=== PATIENT | female | born 1995 | race Caucasian/White ===

== ENCOUNTER → 2020-03-27 16:54 | Outpatient (CLI) | payer BC, SELFPAY ==
[2019-10-07 10:28] VITALS: BMI 19.2
[2020-03-31 12:08] LABS: Bahia Grass <0.10 kU/L (Class 0); Bermuda Grass <0.10 kU/L (Class 0); Bluegrass, Kentucky <0.10 kU/L (Class 0); Gluten <0.10 kU/L (Class 0); Johnson Grass <0.10 kU/L (Class 0); Oat <0.10 kU/L (Class 0); Timothy Grass <0.10 kU/L (Class 0); Wheat <0.10 kU/L (Class 0)
[2020-03-31 13:18] LABS: Milk (Cow) <0.10 kU/L (Class 0); Pine, White <0.10 kU/L (Class 0)
[2020-03-31 20:08] LABS: Alternaria tenuis 3.29 kU/L (Class III); Ash, White <0.10 kU/L (Class 0); Aspergillus fumigatus <0.10 kU/L (Class 0); Bermuda Grass <0.10 kU/L (Class 0); Birch <0.10 kU/L (Class 0); Black Walnut <0.10 kU/L (Class 0); Cat Hair / Dander,Stand 4.92 kU/L (Class IV); Cedar, Mountain 1.28 kU/L (Class II); Cladosporium herbarum <0.10 kU/L (Class 0); Cockroach, American 0.16 kU/L (Class 0/I); Cottonwood <0.10 kU/L (Class 0); D farinae Mite 0.24 kU/L (Class 0/I); D pteronyssinus 0.27 kU/L (Class 0/I); Dog Epithelia 3.25 kU/L (Class III); Elm, American White <0.10 kU/L (Class 0); Immunoglobulin E 118 IU/mL (6-495); Maple/Box Elder <0.10 kU/L (Class 0); Mulberry, White <0.10 kU/L (Class 0); Oak, White <0.10 kU/L (Class 0); Pecan <0.10 kU/L (Class 0); Penicillium Notatum <0.10 kU/L (Class 0); Pigweed, Rough <0.10 kU/L (Class 0); Russian Thistle <0.10 kU/L (Class 0); Sheep Sorrel <0.10 kU/L (Class 0); Sycamore, American <0.10 kU/L (Class 0); Timothy Grass <0.10 kU/L (Class 0)
[2020-03-31 20:56] LABS: Mouse Urine <0.10 kU/L (Class 0)
== END ==
PROVIDERS: PCP Student in an Organized Health Care Education/Training Program; Visit Provider Otolaryngology
DX: T78.40XA Allergy, unspecified, initial encounter (principal)
CPT/HCPCS: 36415; 82785; 86003

== ENCOUNTER 2020-12-23 14:27 | Emergency (ER) | payer OTHER, BC, SELFPAY ==
[2020-12-23 14:28] VITALS: BP 149/102; PULSE 90; RESP 16; TEMP 37.1; O2SAT 100; BMI 21.9
--- NOTE | 2020-12-23 14:41 | EDS_ITS ---
HPI History of Present Illness Chief Complaint: Lower Extremity Injury Informant: patient Occured/Mechanism Mechanism/Context: Yes work related Onset/Context/Timing Onset: Today Current Severity: Mild Maximum Severity: Mild Narrative Narrative: Patient present secondary to right foot injury. 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 She was entering a patient's home today when the screen door closed on her right foot. She has pain across the top of her foot. She has been able to ambulate, but states she is increased pain when she flexes or extends her toes, walks, or drives. [facility] Medical History Asthma Irritable bowel syndrome (IBS) Home Medications cetirizine 10 mg capsule 10 mg PO DAILY 10/07/19 [History Last Taken Unknown] norethindrone 1 mg-ethinyl estradiol 20 mcg (21)-iron 75 mg (7) tablet 1 tab PO DAILY 10/07/19 [History Last Taken Unknown] omeprazole 10 mg capsule,delayed release 10 mg PO DAILY 10/07/19 [History Last Taken Unknown] sennosides 8.6 mg capsule 8.6 mg PO BID PRN 10/07/19 [History Last Taken Unknown] methylprednisolone 4 mg tablets in a dose pack See Rx Instructions PO PER PKG DIR #21 tab 10/16/19 [Rx Last Taken Unknown] Allergy/AdvReac Type Severity Reaction Status Date / Time TEA TREE OIL Allergy HIVES Uncoded 12/23/20 14:30 Surgical History History of carpal tunnel release [place] teeth extracted Social History Smoking Status: Never smoker alcohol intake: never ROS ROS ED Constitutional Constitutional ED: Denies chills or fever(s) Eyes Eyes: Denies change in vision Cardiovascular Cardiovascular: Denies chest pain Respiratory/Chest Respiratory/Chest: Denies cough or dyspnea Gastrointestinal Gastrointestinal: Denies abdominal pain, diarrhea, nausea or vomiting Genitourinary Genitourinary ED: Denies dysuria Musculoskeletal Musculoskeletal: Reports arthralgias; Denies back pain Integumentary Denies rash Neurologic Neurologic: Reports paresthesias RLE (Chronic and unchanged); Denies headache(s) or weakness Psychiatric Psychiatric: Denies anxiety or depression Allergic/Immunologic Allergic/Immunologic ED: Denies urticaria EXAM Physical Exam Const Vital Signs: 12/23/20 14:28 12/23/20 16:03 Temperature 98.8 F Temperature Source Temporal Pulse Rate 90 79 Respiratory Rate 16 16 Blood Pressure 149/102 H 116/84 H Blood Pressure Mean 117 Pulse Ox 100 Oxygen Delivery Method Room Air Positive well nourished and well developed General Appearance ED: well developed HEENT Reports normocephalic and head/scalp atraumatic Eyes PERRL and EOMs intact bilaterally Neck supple Chest Wall inspection of chest normal Resp normal respiratory effort Cardio regular rate and regular rhythm GI normal to inspection, nondistended, normoactive bowel sounds Extremity Extremity Narrative: Abrasion to the top of the right foot. Mild tenderness along the third, fourth, and fifth metatarsals. Good cap refill and sensation distally. No tenderness of the ankle or knee. Neuro oriented x3 and no sensory deficits noted Sensorium / Orientation: alert Motor Exam: strength 5/5 throughout Psych mental status grossly normal Skin no rashes or lesions noted Trauma: abrasion MDM MDM MDM Narrative Medical decision making narrative: Right foot x-rays obtained. Radiography Diagnostic Testing: Radiology Impression Foot X-Ray 12/23/20 14:44 IMPRESSION: Normal x-ray examination of the foot. Electronically Signed: Sree Lewis MD at 15:03 EDT Tel , Service support , Treatment and Re-Evaluation Comments:: Right foot x-ray per my interpretation reveals no acute fracture. Radiology rotation is reviewed. Js wrap will be applied. Patient will follow up with Worker's Comp. Discharge Plan Triage Chief Complaint: Lower Extremity Injury ED Provider: Elke Abarca Dx/Rx/DC Orders Clinical Impression: Contusion of foot, right Instructions: ED Foot Contusion Prescriptions: No Action Zyrtec 10 mg capsule 10 mg PO DAILY RF: 0 senna 8.6 mg capsule 8.6 mg PO BID PRNRF: 0 omeprazole 10 mg capsule,delayed release(DR/EC) 10 mg PO DAILY RF: 0 norethindrone-e.estradiol-iron [Junel FE 1/20 (28)] 1 mg-20 mcg (21)/75 mg (7) tablet 1 tab PO DAILY RF: 0 methylprednisolone 4 mg tablets,dose pack See Rx Instructions PO PER PKG DIR Qty: 21 RF: 0 Stand Alone Forms: Work Status Form Primary Care Provider: Shemar Sanchez Referrals: [facility] [GROUP OF PHYSICIANS] - 5-7 Days Shemar Sanchez DO [Primary Care Provider] - Disposition Disposition: Home, Self Care Discharge Date/Time: 12/23/20 16:12
--- NOTE | 2020-12-23 14:44 | RAD_ITS ---
STUDY: X-RAY - RIGHT FOOT CLINICAL: Female, 25 years old. injury TECHNIQUE: 3 view(s) of the foot. COMPARISON: None. FINDINGS: Normal talus, calcaneus, and tarsal bones. Normal visualized subtalar, talonavicular, calcaneocuboid, tarsal and tarsometatarsal articulations. Normal metatarsi. Normal metatarsophalangeal joint of the great toe. Normal tibial and fibular sesamoid bones. Normal interphalangeal joint of the great toe. Normal phalanges of the great toe. Normal second through fifth metatarsophalangeal joints. Normal interphalangeal joints and phalanges of the lesser toes. The soft tissue structures are unremarkable. RAD/Foot min 3 Views IMPRESSION: Normal x-ray examination of the foot. Electronically Signed: Sree Lewis MD at 15:03 EDT Tel , Service support ,
[2020-12-23 16:03] VITALS: BP 116/84; PULSE 79; RESP 16
== END 2020-12-23 16:12 | disposition home or self-care (01) ==
PROVIDERS: Emergency Provider Emergency Medicine; PCP Student in an Organized Health Care Education/Training Program
DX: S90.31XA Contusion of right foot, initial encounter (principal); X58.XXXA Exposure to other specified factors, initial encounter
CPT/HCPCS: 73630; 99282

== ENCOUNTER 2021-05-13 05:45 | Day surgery (SDC) | payer BC, SELFPAY ==
[2021-05-13] VITALS (11 sets, daily range): BP systolic 101–120; BP diastolic 54–82; PULSE 64–98; RESP 16; TEMP 36.4–36.8; O2SAT 98–100; BMI 21.4
--- NOTE | 2021-05-13 | MISC_PTH ---
PATIENT: CARMEN KRAFT [place]: [facility] [place][id number] AGE/SX: 25/F ROOM: RE05/13/[address]: Dr. Rhiannon Cueva MD : 1995 BED: DIS: 05/13/2021 SPEC #: [id number] RECD: 05/13/21 12:43 STATUS: CELESTE RETrent #: [id number] JUAN: 05/13/21 00:[address]: Rhiannon Anderson DEPT: SURGICAL PATHOLOGY RECD BY: Faizan Worrell ENTERED: 05/13/21 12:47 SP TYPE: [facility] [place]: Dr. Shemar Sanchez, DO Tissues: A - Abdominal wall, NOS B - Peritoneum, NOS C - Peritoneum, NOS D - Peritoneum, NOS E - Peritoneum, NOS F - Peritoneum, NOS G - Peritoneum, NOS H - Peritoneum, NOS I - Peritoneum, NOS J - Peritoneum, NOS K - Peritoneum, NOS L - Peritoneum, NOS M - Peritoneum, NOS N - Peritoneum, NOS O - Peritoneum, NOS P - Peritoneum, NOS Q - Peritoneum, NOS R - Peritoneum, NOS Procedures: Surgery Specimen Level IV HEADER OPERATION: Laparoscopic resect endometriosis PRE-OP DIAGNOSIS: Chronic pelvic pain, endometriosis TISSUE SUBMITTED: A - Left abdominal side wall, B - Left adnexa peritoneum, C - Left mesosalpinx peritoneum, D - Left iliac peritoneum, E - Left uterosacral peritoneum, F - Rectovaginal endometriosis, G - Distal uterosacral peritoneum, H - Distal uterosacral peritoneum #2, I - Left medial uterosacral peritoneum, J - Right broad ligament peritoneum, K - Right ovarian fossa peritoneum, L - Right ovarian fossa peritoneum #2, M - Left round ligament peritoneum, N - Anterior cul-de-sac peritoneum, O - Right anterior cul-de-sac peritoneum, P - Anterior cul-de-sac peritoneum #2, Q - Anterior cul-de-sac peritoneum, R - Right pelvic side wall MICROSCOPIC DIAGNOSIS A. Left abdominal side wall, biopsy: Endometriosis. Mild chronic inflammation. B. Left adnexa peritoneum, biopsy: Focal endometriosis. C. Left mesosalpinx peritoneum, biopsy: Focal endometriosis. D. Left iliac peritoneum, biopsy: A fragment of fibroconnective and fibroadipose tissue, negative for endometriosis. E. Left uterosacral peritoneum, biopsy: Endometriosis. Chronic inflammation. F. Rectovaginal endometriosis: Endometriosis. Chronic inflammation. G. Distal uterosacral peritoneum, biopsy: Suspicious for endometriosis. Chronic inflammation. H. Distal uterosacral peritoneum #2, biopsy: Endometriosis. I. Left medial uterosacral peritoneum, biopsy: A fragment of fibroconnective and fibroadipose tissue, negative for endometriosis. Chronic inflammation. J. Right broad ligament peritoneum, biopsy: A fragment of fibroconnective and fibroadipose tissue, negative for endometriosis. Chronic inflammation. K. Right ovarian fossa peritoneum, biopsy: Focal endometriosis. L. Right ovarian fossa peritoneum #2, biopsy: A fragment of fibroconnective and fibroadipose tissue, negative for malignancy. M. Left round ligament peritoneum, biopsy: Suspicious for endometriosis. N. Anterior cul-de-sac peritoneum, biopsy: A fragment of fibroadipose and fibroconnective tissue, negative for endometriosis. O. Right anterior cul-de-sac peritoneum, biopsy: Fragments of fibroconnective and fibroadipose tissue, negative for endometriosis. P. Anterior cul-de-sac peritoneum #2, biopsy: Focal endometriosis. Q. Anterior cul-de-sac peritoneum, biopsy: A fragment of fibroconnective tissue, negative for endometriosis. R. Right pelvic side wall, biopsy: Endometriosis. SJ:karey 05/14/2021 MICROSCOPIC DESCRIPTION Slides are reviewed. GROSS DESCRIPTION A - Received in fixative is one container labeled with the patient's name and designated left abdominal side wall. The specimen consists of one irregular fragment of justin soft tissue that measures 1 x 0.5 x 0.2 cm. The specimen is totally submitted in one cassette. B - Received in fixative is one container labeled with the patient's name and designated left adnexa peritoneum. The specimen consists of two irregular fragments of justin soft tissue that in aggregate measure 0.5 x 0.5 x 0.2 cm. The specimen is totally submitted in one cassette. C - Received in fixative is one container labeled with the patient's name and designated left mesosalpinx peritoneum. The specimen consists of one irregular fragment of light justin soft tissue that measures 0.2 x 0.2 x 0.1 cm. The specimen is totally submitted in one cassette. D - Received in fixative is one container labeled with the patient's name and designated left iliac peritoneum. The specimen consists of a piece of justin-pink soft tissue measuring 0.7 x 0.7 x 0.3 cm. The specimen is totally submitted in one cassette. E - Received in fixative is one container labeled with the patient's name and designated left uterosacral peritoneum. The specimen consists of a piece of pink, congested soft tissue measuring 0.7 x 0.5 x 0.2 cm. The specimen is totally submitted in one cassette. F - Received in fixative is one container labeled with the patient's name and designated rectovaginal endometriosis. The specimen consists of a piece of pink, congested soft tissue measuring 1.2 x 0.4 x 0.3 cm. The specimen is totally submitted in one cassette. G - Received in fixative is one container labeled with the patient's name and designated distal uterosacral peritoneum. The specimen consists of a piece of pink, congested soft tissue measuring 0.9 x 0.5 x 0.3 cm. The specimen is totally submitted in one cassette. H - Received in fixative is one container labeled with the patient's name and designated Distal uterosacral peritoneum #2. The specimen consists of a piece of justin soft tissue measuring 0.3 x 0.2 x 0.1 cm. The specimen is totally submitted in one cassette. I - Received in fixative is one container labeled with the patient's name and designated left medial uterosacral peritoneum. The specimen consists of a fragment of justin soft tissue measuring 0.3 x 0.3 x 0.1 cm. The specimen is totally submitted in one cassette. J - Received in fixative is one container labeled with the patient's name and designated right broad ligament peritoneum. The specimen consists of a piece of pink, congested soft tissue measuring 1 x 0.5 x 0.3 cm. The specimen is totally submitted in one cassette. K - Received in fixative is one container labeled with the patient's name and designated right ovarian fossa peritoneum. The specimen consists of a piece of justin-pink soft tissue measuring 0.9 x 0.3 x 0.2 cm. The specimen is totally submitted in one cassette. L - Received in fixative is one container labeled with the patient's name and designated right ovarian fossa peritoneum #2. The specimen consists of a piece of pink, congested soft tissue measuring 0.7 x 0.5 x 0.3 cm. The specimen is totally submitted in one cassette. M - Received in fixative is one container labeled with the patient's name and designated left round ligament peritoneum. The specimen consists of a piece of justin-pink soft tissue measuring 0.3 x 0.2 x 0.1 cm. The specimen is totally submitted in one cassette. N - Received in fixative is one container labeled with the patient's name and designated anterior cul-de-sac peritoneum. The specimen consists of a piece of justin-pink soft tissue measuring 0.6 x 0.5 x 0.2 cm. The specimen is totally submitted in one cassette. O - Received in fixative is one container labeled with the patient's name and designated right anterior cul-de-sac peritoneum. The specimen consists of two irregular fragments of light justin soft tissue that in aggregate measure 0.6 x 0.5 x 0.3 cm. The specimen is totally submitted in one cassette. P - Received in fixative is one container labeled with the patient's name and designated anterior cul-de-sac peritoneum #2. The specimen consists of one irregular fragment of light justin soft tissue that measures 0.7 x 0.4 x 0.3 cm. The specimen is totally submitted in one cassette. Q - Received in fixative is one container labeled with the patient's name and designated anterior cul-de-sac peritoneum #3. The specimen consists of one irregular fragment of light justin soft tissue that measures 0.3 x 0.2 x 0.1 cm. The specimen is totally submitted in one cassette. R - Received in fixative is one container labeled with the patient's name and designated right pelvic side wall. The specimen consists of one irregular fragment of justin-pink soft tissue that measures 0.6 x 0.6 x 0.3 cm. The specimen is totally submitted in one cassette. / SJ:rg 05/13/2021 TC:5 CPT: 90429 x18
[2021-05-13 06:45] LABS: Internal QC Validated? YES +Cl - CLEAR BKGD; Pregnancy, Urine Negative Negative
[2021-05-13] MEDS: Lactated Ringers 1,000 ML 125 ML IV ×2 (07:03→09:31)
[2021-05-13 07:05] LABS: Hemoglobin 14.5 g/dL (12.0-15.0); Mean Corp Hgb Conc 33.7 g/dL (32-36); Mean Corpuscular Hgb 30.1 pg (27.0-32.0); Mean Corpuscular Volume 89.4 fL (81-99); Mean Platelet Vol. 10.9 fl (6.2-12.0); Platelet Count 184 K/mm3 (150-450); RBC Distribution Width SD 39.3 fl (35.1-43.9); Red Blood Count 4.81 M/mm3 (4.2-5.4); White Blood Count 6.2 K/mm3 (4.4-11.0)
--- NOTE | 2021-05-13 07:09 | HP.PCM_ITS ---
HPI - General HPI Narrative CARMEN RUTLEDGE, is a 25 F who presents for scheduled diagnostic laparoscopy with surgical treatment of endometriosis as indicated. She has a hx of chronic pelvic pain with IBS refractory to GI management and hormonal contraceptives. [facility] Medical History (Updated 05/13/21 @ 07:[address] Rhiannon Cueva MD) Anxiety Asthma Depression Heartburn Irritable bowel syndrome (IBS) Migraine headache Non-smoker Syncope Wears glasses Home Medications cetirizine 10 mg capsule 10 mg PO DAILY 10/07/19 [History Last Taken Unknown] albuterol 90 mcg INHALATION PRN PRN 05/06/21 [History Last Taken Unknown] cholecalciferol (vitamin D3) [Vitamin D3] 50 mcg PO DAILY 05/06/21 [History Last Taken Unknown] lubiprostone [Amitiza] 8 - 16 mcg PO DAILY 05/06/21 [History Last Taken Unknown] multivitamin 1 cap PO DAILY 05/06/21 [History Last Taken Unknown] Allergy/AdvReac Type Severity Reaction Status Date / Time TEA TREE OIL Allergy HIVES Uncoded 05/06/21 12:59 Surgical History History of carpal tunnel release Hx of colonoscopy with polypectomy [place] teeth extracted Social History Smoking Status: Never smoker alcohol intake: never Vital Signs Vital Signs Vital Signs: 05/13/21 06:57 Temperature 98.1 F Temperature Source Temporal Pulse Rate 64 Respiratory Rate 16 Respiratory Pattern Normal Blood Pressure 106/74 Blood Pressure Mean 84 Blood Pressure Source Monitor Blood Pressure Position Semi-Fowlers Blood Pressure Location Right Arm Pulse Ox 100 Oxygen Delivery Method Room Air Weight Weight: 55 kg Body Mass Index (BMI) 21.4 Physical Exam Const alert, oriented x3 and no apparent distress HEENT normocephalic Resp normal respiratory effort, normal air movement and clear to auscultation bilaterally Cardio regular rate and regular rhythm GI normal to inspection, nondistended, normoactive bowel sounds, soft to palpation, non-tender and non-distended Results Lab / Micro Data Result Diagrams: 05/13/21 06:30 Labs: Laboratory Results - last 24 hr 05/13/21 06:15: Urine Test Negative 05/13/21 06:30: WBC 6.2, RBC 4.81, Hgb 14.5, Hct 43.0, MCV 89.4, MCH 30.1, MCHC 33.7, RDW Std Deviation 39.3, RDW Coeff of Katya 12.0, Plt Count 184, MPV 10.9 Assessment & Plan Assessment/Plan (1) Chronic pelvic pain in female: PLAN: Proceed as planned with laparoscopy, treatment of endometriosis as indicated. Patient given opportunity to ask questions and questions answered to her satisfaction.
[2021-05-13] MEDS: Cefotetan 2 GM in 0.9% NS 100 ML IV (07:46)
[2021-05-13] MEDS: Bupivacaine Mpf 0.5% 30 ML VIAL (08:02)
--- NOTE | 2021-05-13 10:44 | OP.PCM_ITS ---
Problems Associated Problem List Diagnoses (1) Chronic pelvic pain in female: (2) Endometriosis determined by laparoscopy: Report of Operation Date of Procedure: 05/13/21 Pre-Operative Diagnosis: 1. Chronic pelvic pain Post-Operative Diagnosis: 1. Chronic pelvic pain 2. Endometriosis Surgery/Procedure Performed:: 1. Diagnostic laparoscopy 2. Excision of endometriosis 3. Lysis of adhesions 4. Ureterolysis 5. Interceed placement Description of Surgical Findings:: Diffuse pelvic endometriosis including anterior and posterior cul-de-sacs, bilateral uterosacral ligaments and the right ovarian fossa and left adnexal peritoneum. Normal-appearing appendix. Normal uterus tubes and ovaries bilaterally. Surgeon: Rhiannon Anderson hl7 interface developer: Jannette Coronel Type of Anesthesia: General and Local Anesthesiologist: Mandeep Alcantar Specimen's removed: 1. L. abrominal side wall peritoneum 2. Left adnexal peritoneum 3. Left mesosalpinx peritoneum 4. Left ilieac peritoneum 5. Left uterosacral peritoneum 6. Rectovaginal endometriosis 7. Distal right uterosacral peritoneum 8. Distal right uterosacral peritoneum #2 9. Right medial uterosacral peritoneum 10. Right broad ligament peritoneum 11. Right ovarian fossa peritoneum 12. Right ovarian fossa peritoneum #2 13. Left round ligament peritoneum 14. Anterior cul-de-sac peritoneum 15. Right anterior cul-de-sac peritoneum 16. Anterior cul-de-sac peritoneum #2 17. Anterior cul-de-sac peritoneum #3 18. Right pelvic sidewall Estimated Blood Loss (mL): 30 Fluids Replaced: 1100 ml Description of Procedure: Indications: 25-year-old nulligravida with a history of chronic pelvic pain with dysmenorrhea. She has been diagnosed with IBS and having undergone extensive GI work-up demonstrating colonic polyp only. She her pain has been refractory to hormonal control. She was counseled regarding medical and surgical management options and opted to proceed with laparoscopy and surgical treatment of endometriosis as indicated. Procedural risks, benefits, indications and alternatives were reviewed. Informed consent was obtained prior to procedure. Procedure: The patient was brought to the operating room and sinus performed. She is placed in the dorsal supine position and induced under general anesthesia. She is placed into dorsal lithotomy and her arms were tucked at her sides. The abdomen and perineum were prepped and draped in sterile fashion. A Caal catheter was placed into the bladder. The patient was placed in the high lithotomy and a speculum placed vaginally. The anterior cervical lip was grasped with a single-tooth tenaculum and the uterus sounded to 7 and half centimeters. A ZUMI uterine manipulator was placed and secured. The tenaculum was removed from the cervix and the patient placed into a low lithotomy and attention turned to the abdomen. An inferior umbilical incision was made using the scalpel following injection of half percent Marcaine at the site. A varies needle was introduced with successful hanging drop test and no aspirate. The abdomen was insufflated to 12 mmHg. The varies needle was removed and a 5 mm port was placed under laparoscopic guidance confirming entry into the abdominal cavity again. A second incision was placed suprapubically and a 5 mm port placed here the abdomen and pelvis were inspected with endometriosis as noted in findings. Bilateral tap block was performed using half percent Marcaine under laparoscopic guidance and incisions and 5 mm ports were placed in the right and left lower quadrants respectively. The patient was placed into Trendelenburg. Attention was turned to the left abdomen. Left abdominal sidewall peritoneum Powder burn endometriotic lesion was excised using monopolar laparoscopic L-hook. Adhesiolysis was subsequently performed along the sigmoid: And the pelvic sidewall with excision of a second peritoneal lesion along the left external iliac vessels. The peritoneal lesion along the left mesosalpinx was excised using monopolar energy and sharp dissection. Adhesions from the ovarian hilum to the rectosigmoid were lysed sharply to reveal red endometriotic lesion of the underlying peritoneum. This area was excised sharply with laparoscopic jorge. The left ureter was identified and course observed. A red vesicular left uterosacral peritoneal endometriotic lesion was excised using monopolar energy as well as sharp dissection. Hemostasis was attained using monopolar electro coagulation. Vaginal and rectovaginal exams were subsequently performed to delineate the extent of endometriosis at the midline cul-de-sac over the rectovaginal peritoneum. This area was excised using both monopolar energy and cold dissection. Attention was turned to the right uterosacral sacral ligament and 2 distal gunpowder uterosacral ligament peritoneal lesions were excised with clear visualization of the ureter during this dissection. Red vesicular endometriosis was excised from the right medial uterosacral ligament peritoneum. A red endometriotic lesion was excised from the right distal broad ligament peritoneum. A series of red vesicular lesions along the right ovarian fossa were excised with associated peritoneal dissection and ureterolysis with observation of the ureteric course and continue peristalsis post resection. Attention was turned to the anterior cul-de-sac and left anterior cul-de-sac peritoneum at the insertion of the round ligament was excised using monopolar energy. Red lesions of the midline anterior cul-de-sac and right anterior cul-de-sac peritoneum were excised using monopolar energy and cold dissection. A few small deeper fascial isolated red lesions in the anterior cul-de-sac were electrocoagulated with monopolar energy. An additional lesion at the right pelvic sidewall including red vesicles and whitening was also excised in similar fashion. Approximatelyl 120 minutes was required for optimal resection and biopsy of endometriosis. 3 oh V-Loc suture was used to reapproximate the peritoneum of the right ovarian fossa. Interceed was placed along the site as well as at the site of vaginal peritoneal resection and the left uterosacral ligament peritoneal excision. Interceed was also placed in the anterior cul-de-sac along those biopsy sites. There was good hemostasis. The trochars were removed from the abdomen and abdomen desufflated. The skin was closed with 4-0 Monocryl by the PENSION FUND MANAGER under my supervision and additional half percent Marcaine was injected at the incisional sites for further analgesia. I returned to the perineum and the Caal catheter and ZUMI uterine manipulator's were removed. The patient was repositioned into dorsal supine, awakened, extubated and transferred to the recovery room without complication. Admit VTE Documentation VTE Present on Admission: No VTE Mechan Device Prophylaxis: SCD's VTE Pharm Prophylaxis ordered?: No
--- NOTE | 2021-05-13 11:14 | PCM.DC ---
Discharge Instructions Diet Discharge Diet: No restrictions Activity Discharge Activity: Return to Normal Activity Return to work on:: 05/24/21 May resume sexual activity in: 4 weeks Lifting Restrictions: 10 lb Dressing / Incision Call your doctor if your incision/area has: Continuous Slow Oozing, Sudden Increased Bleeding, Increased Pain/ Swelling, Increased Redness, Foul Smelling Discharge and Swelling at the incision site Call your doctor if you observe: Fever of 101 or Higher, Inability to urinate, Inability to have a bowel movement, Shortness of breath, Chest pain, Calf discomfort and Uncontrolled pain Remove Dressing in: 2 days Cleanse incision/area with: Soap & Water Follow Up Care Please Follow Up With: Rhiannon Anderson MD When: as scheduled in 2 weeks Test Results: Test results from this visit will be discussed in further detail at your follow-up appointment, if applicable. Discharge Plan Admission Primary Reason for Your Visit: Endometriosis Attending Provider: Rhiannon Anderson Primary Care Provider: Shemar Sanchez Instructions Patient Instructions: Endometriosis Lap Tx Dc Discharge Orders/Prescriptions Prescriptions: New oxycodone 5 mg capsule 5 mg PO Q6H PRN (Reason: pain) 7 Days Qty: 20 RF: 0 ibuprofen 800 mg tablet 800 mg PO Q8H PRN (Reason: pain) Qty: 30 RF: 1 Continued Zyrtec 10 mg capsule 10 mg PO DAILY RF: 0 lubiprostone [Amitiza] 8 mcg Capsule 8 - 16 mcg PO DAILY RF: 0 albuterol 90 mcg/actuation Aerosol 90 mcg INHALATION PRN PRN (Reason: SOB) RF: 0 multivitamin Capsule 1 cap PO DAILY RF: 0 cholecalciferol (vitamin D3) [Vitamin D3] 25 mcg (1,000 unit) Capsule 50 mcg PO DAILY RF: 0 Referrals / Follow Up: Shemar Sanchez DO [Primary Care Provider] - Disposition Disposition (needs filled in before D/C Order can be placed): Home, Self Care
[2021-05-13] MEDS: Lactated Ringers 1,000 ML 100 ML IV (13:59)
[2021-05-13] MEDS: Ibuprofen 400 MG Tablet 800 MG PO (15:00)
== END 2021-05-13 23:59 | disposition home or self-care (01) ==
LOC: SDC 05:47 → AC 05:48
PROVIDERS: Anesthesiology; PCP Student in an Organized Health Care Education/Training Program; Referring Provider Obstetrics & Gynecology; Visit Provider Obstetrics & Gynecology
PROC: (CPT 49320; principal; 2021-05-13 07:15)
DX: N80.3 Endometriosis of pelvic peritoneum (principal); N94.6 Dysmenorrhea, unspecified; G89.29 Other chronic pain; K58.9 Irritable bowel syndrome, unspecified
CPT/HCPCS: 58662; 00840; 81025; 85027; 86850; 86900; 86901; 88305; J7120; J2405

== ENCOUNTER 2021-06-08 09:09 | Outpatient (CLI) | payer BC, SELFPAY ==
[2021-06-08 10:06] LABS: Absolute Lymphocyte Count 2.03 X10^3/uL (0.83-4.51); Absolute Neutrophil Count 2.8 X10^3/uL (2.0-7.7); Basophil# 0.04 X10^3/uL; Basophil% 0.7 % (0-1); Eosinophil# 0.23 X10^3/uL; Eosinophils% 4.2 % (0-5); Hematocrit 41.3 % (37-47); Hemoglobin 14.3 g/dL (12.0-15.0); Lymphocyte # 2.03 X10^3/ul (0.83-4.51); Lymphocyte % 36.8 % (19-41); Mean Corp Hgb Conc 34.6 g/dL (32-36); Mean Corpuscular Hgb 31.2 pg (27.0-32.0); Mean Corpuscular Volume 90.2 fL (81-99); Mean Platelet Vol. 10.7 fl (6.2-12.0); Monocyte# 0.36 X10^3/uL; Monocyte% 6.5 % (0-10); NRBC Flagged by Analyzer 0 % (0-5); Neutrophil # 2.84 X10^3/uL (2.7-7.7); Neutrophil % 51.6 % (47-70); Platelet Count 193 K/mm3 (150-450); RBC Distribution Width CV 12.6 % (11.6-14.6); RBC Distribution Width SD 41.4 fl (35.1-43.9); Red Blood Count 4.58 M/mm3 (4.2-5.4); White Blood Count 5.5 K/mm3 (4.4-11.0)
[2021-06-08 10:37] LABS: ALB/GLOB Ratio 1.4 RATIO (0.9-2.4); AST(SGOT) 16 U/L (15-37); Alanine Aminotransfer ALT/SGPT 40 U/L (13-56); Albumin, Serum 4.2 g/dL (3.2-5.0); Alkaline Phosphatase 64 U/L (45-117); Anion Gap 3 (5-15); BUN 13 mg/dL (7-18); CRP < 2.90 mg/L (0.0-3.0); Chloride 107 mmol/L (98-107); Creatinine, Serum 0.68 mg/dL (0.55-1.02); EST Glomerular Filtration Rate 110 mL/min (>60); Est Glom Filt Rate - Afr Amer 134 mL/min (>60); Globulin 3.1 g/dL (2.2-4.2); Glucose 83 mg/dL (74-106); Protein, Total 7.3 g/dL (6.4-8.2); Sodium Level 139 mmol/L (136-145)
[2021-06-09 00:32] LABS: Erythrocyte Sedimentation Rate < 1 mm/hr (0-30)
[2021-06-09 13:08] LABS: Anti-Centromere B Ab <0.2 AI (0.0-0.9); Anti-Chromatin <0.2 AI (0.0-0.9); Anti-Jo <0.2 AI (0.0-0.9); Anti-Scleroderma-70 AB <0.2 AI (0.0-0.9); RNP Ab 0.2 AI (0.0-0.9); SJOGREN'S Anti-SS-A test < 0.2 AI (0.0-0.9); SJOGREN'S Anti-SS-B test < 0.2 AI (0.0-0.9); Smith Ab <0.2 AI (0.0-0.9)
[2021-06-09 15:29] LABS: Anti-dsDNA Ab <1 IU/mL (0-9)
[2021-06-12 10:14] LABS: Calprotectin, Stool <16 ug/g (0-120)
[2021-06-13 01:06] LABS: Endomysial Antibody IgA Negative (Negative); Immunoglobulin A 187 mg/dL (87-352); Immunoglobulin E 83 IU/mL (6-495); Immunoglobulin G 784 mg/dL (586-1602)
[2021-06-13 13:28] LABS: Immunoglobulin M 77 mg/dL (26-217); t-Transglutaminase IgA <2 U/mL (0-3)
== END 2021-06-08 23:59 | disposition home or self-care (01) ==
LOC: LAB 09:11
PROVIDERS: PCP Student in an Organized Health Care Education/Training Program; Referring Provider Internal Medicine Gastroenterology; Visit Provider Internal Medicine Gastroenterology
DX: R19.7 Diarrhea, unspecified (principal)
CPT/HCPCS: 36415; 80053; 82784; 82785; 83516; 83993; 85025; 85652; 86140; 86225; 86235; 86255

== ENCOUNTER 2021-06-14 08:33 | Outpatient (CLI) | payer BC, SELFPAY ==
[2021-06-14 09:48] LABS: T3 Total - Triiodothyronine 1.09 ng/mL (0.6-1.81)
[2021-06-14 15:32] LABS: Estradiol 55.6 pg/mL; Follicle Stimulating Hormone 5.7 mIU/mL; Prolactin 10.8 ng/mL; T4 Free Direct 0.89 ng/dL (0.76-1.46); Thyroid Stim Hormone (TSH) 2.72 uIU/mL (0.358-3.74)
[2021-06-15 14:22] LABS: Sex Hormone-binding Globulin 74.5 nmol/L (24.6-122.0)
[2021-06-21 13:31] LABS: 17-Hydroxyprogesterone 88 ng/dL (.)
== END 2021-06-14 23:59 | disposition home or self-care (01) ==
LOC: LAB 08:35
PROVIDERS: PCP Student in an Organized Health Care Education/Training Program; Referring Provider Obstetrics & Gynecology; Visit Provider Obstetrics & Gynecology
DX: G47.00 Insomnia, unspecified (principal); E28.9 Ovarian dysfunction, unspecified
CPT/HCPCS: 36415; 82533; 82627; 82670; 83001; 83002; 83498; 84146; 84270; 84403; 84439; 84443; 84480; 86376; 86800; 82626

== ENCOUNTER 2021-06-22 12:50 | Day surgery (SDC) | payer BC, SELFPAY ==
--- NOTE | 2021-06-22 | IMM_PTH ---
PATIENT: CARMEN KRAFT LOC: EN U#:[id number] AGE/SX: 25/F ROOM: RE06/22/[address]: Dr. Dick Reddy DO : 1995 BED: DIS: 06/22/2021 SPEC #: [id number] RECD: 06/24/21 13:44 STATUS: CELESTE RETrent #: [id number] JUAN: 06/22/21 00:[address]: Dick Reddy DEPT: IMMUNOHISTOCHEMISTRY RECD BY: Carito Castillo ENTERED: 06/24/21 13:45 SP TYPE: IMMUNO OTHR DR: Dr. Shemar Sanchez DO Tissues: C - Stomach, NOS Procedures: H Pylori (initial) PHYSICIAN & INSTITUTION [facility] [id number] SPECIMEN INFORMATION: Tissue Source: C ? Gastric body biopsy Clinical Info: Diarrhea Specimen Number: [id number] C CPT code: 86330 METHODOLOGY: Deparaffinized sections of prefer/formalin-fixed tissue or PAP/DQ stained slides are incubated with monoclonal/polyclonal antibodies/oligonucleotide probes. Localization is made via biotin free immunoperoxidase method. Appropriate controls are performed and reacted as expected. Results on target cell population are indicated in the following table: RESULTS: ANTIBODY / CLONE RESULT Block C H Pylori (polyclonal) negative These tests were developed and their performance characteristics determined by [facility]. They may not have been cleared or approved by the U.S. Food and Drug Administration. The FDA has determined that such clearance or approval is not necessary. The above immunohistochemical/dualISH markers are ordered and reviewed by the Pathologist. INTERPRETATION: C. Gastric body, biopsy: Negative for Helicobacter pylori organisms. SJ:karey 06/24/2021
[2021-06-22 13:14] VITALS: BP 116/79; PULSE 75; RESP 16; TEMP 36.6; O2SAT 100; BMI 19.5
[2021-06-22] MEDS: Lactated Ringers 1,000 ML 15 ML IV (13:18)
[2021-06-22 13:21] LABS: Internal QC Validated? YES +Cl - CLEAR BKGD; Pregnancy, Urine Negative Negative
--- NOTE | 2021-06-22 14:00 | EGD_PTH ---
PATIENT: CARMEN KRAFT LOC: EN U#:[id number] AGE/SX: 25/F ROOM: RE06/22/[address]: Dr. Dick Reddy DO : 1995 BED: DIS: 06/22/2021 SPEC #: [id number] RECD: 06/22/21 16:15 STATUS: CELESTE TRACY #: [id number] JUAN: 06/22/21 14:[address]: Dick Reddy DEPT: SURGICAL PATHOLOGY RECD BY: Caren Resendez ENTERED: 06/23/21 08:59 SP TYPE: EGD BIOPSY OT DR: Dr. Shemar Sanchez DO Tissues: A - Duodenum, NOS B - Pylorus C - Gastric mucous membrane D - Esophagus, NOS E - Cecum, NOS F - Ileum, NOS G - Ascending colon H - COLON BIOPSY Procedures: Special Stain Group II Surgery Specimen Level IV Alcian Blue/PAS (control) HEADER OPERATION: Colonoscopy, EGD ([facility] [place]) PRE-OP DIAGNOSIS: Diarrhea TISSUE SUBMITTED: A - Duodenum biopsy, B - Pylorus biopsy, C - Gastric body biopsy, D - Random esophagus biopsy, E - Cecum biopsy, F - Terminal ileum biopsy, G - Ascending colon polyp, H - Random colon biopsy MICROSCOPIC DIAGNOSIS A. Duodenum, biopsy: Fragments of duodenal mucosa, no pathologic diagnosis. B. Pylorus, biopsy: Mild gastritis. Focal intestinal metaplasia (goblet cell metaplasia). See microscopic description and comment. C. Gastric body, biopsy: Mild gastritis. See microscopic description and comment. D. Esophagus, random biopsy: Fragments of gastroesophageal mucosa with mild chronic inflammation. Intestinal metaplasia (goblet cell metaplasia) not identified. See comment. E. Cecum, biopsy: Fragments of colonic mucosa, no pathologic diagnosis. F. Terminal ileum, biopsy: Fragments of small intestinal mucosa, no pathologic diagnosis. G. Ascending colon polyp, biopsy: Fragments of hyperplastic polyp. H. Colon, random biopsy: Fragments of colonic mucosa, no pathologic diagnosis. SJ:karey 06/24/2021 COMMENT B. Alcian blue/PAS stain with matched control is used in the evaluation of the specimen. C. The results of immunohistochemistry for Helicobacter pylori will be reported separately ([id number]). D. Alcian blue/PAS stain with matched control is used in the evaluation of the specimen. The specimen predominantly consists of squamous epithelium. MICROSCOPIC DESCRIPTION Slides are reviewed. B. The specimen shows fragments of gastric mucosa with chronic inflammatory cell infiltrates in the lamina propria consisting of lymphocytes and plasma cells, consistent with mild chronic gastritis. Focal intestinal metaplasia (goblet cell metaplasia) is noted. C. The specimen shows fragments of gastric mucosa with chronic inflammatory cell infiltrates in the lamina propria consisting of lymphocytes and plasma cells, consistent with mild chronic gastritis. A few small lymphoid aggregates are noted, favor benign. GROSS DESCRIPTION A - Received in fixative is one container labeled with the patient's name and designated duodenum biopsy. The specimen consists of multiple irregular fragments of light justin soft tissue that in aggregate measure 1.5 x 0.3 x 0.1 cm. The specimen is totally submitted in one cassette. B - Received in fixative is one container labeled with the patient's name and designated pylorus biopsy. The specimen consists of two irregular fragments of light justin soft tissue that in aggregate measure 0.6 x 0.2 x 0.1 cm. The specimen is totally submitted in one cassette. C - Received in fixative is one container labeled with the patient's name and designated gastric body biopsy. The specimen consists of multiple irregular fragments of light justin soft tissue that in aggregate measure 1 x 0.4 x 0.1 cm. The specimen is totally submitted in one cassette. D - Received in fixative is one container labeled with the patient's name and designated random esophagus biopsy. The specimen consists of multiple irregular fragments of light justin soft tissue that in aggregate measure 1 x 0.5 x 0.1 cm. The specimen is totally submitted in one cassette. E - Received in fixative is one container labeled with the patient's name and designated cecum biopsy. The specimen consists of multiple irregular fragments of light justin soft tissue that in aggregate measure 0.8 x 0.3 x 0.1 cm. The specimen is totally submitted in one cassette. F - Received in fixative is one container labeled with the patient's name and designated terminal ileum biopsy. The specimen consists of two irregular fragments of light justin soft tissue that in aggregate measure 1 x 0.2 x 0.1 cm. The specimen is totally submitted in one cassette. G - Received in fixative is one container labeled with the patient's name and designated ascending colon polyp. The specimen consists of multiple irregular fragments of light justin soft tissue that in aggregate measure 1 x 0.6 x 0.1 cm. The specimen is totally submitted in one cassette. H - Received in fixative is one container labeled with the patient's name and designated random colon biopsy. The specimen consists of multiple irregular fragments of light justin soft tissue that in aggregate measure 1 x 0.5 x 0.1 cm. The specimen is totally submitted in one cassette. / SJ:rg 06/23/2021 TC:3 CPT: 75656 x8, 56140 x2
--- NOTE | 2021-06-22 14:19 | PCM.HP.BLA ---
History and Physical Date of Admission: 06/22/21 25 F who presents to the office today for Reports IBS for the last 5-6 years. Has previously seen Dr. 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 Avoids gluten and dairy, stress. Normal bowel habits are constipation with 3-4 BM a week with feeling of incomplete evacuation; she has daily diarrhea in the afternoon. Reports mucous and increased flatulence. When bowel habits are not controlled she has additional symptoms of abdominal pain, bloating and cramping. With being off of work r/t endometriosis she has been having better BM habits. Currently taking Amitiza 8mcg QD which she feels is working well, Linzess 72mcg attempted with explosive diarrhea, miralax and senna used previously but effectiveness was not lasting. Insurance will be changing soon and she was told amitiza will not be approved until she has tried and failed linzess and symproic. Last colonoscopy performed with several tubular adenomas removed. History of chronic pelvic pain with IBS refractory of GI management and hormonal contraceptive. She had a diagnostic laparoscopy with surgical treatment of endometriosis as indicated performed 05.13.21; Diffuse pelvic endometriosis including anterior and posterior cul-de-sacs, bilateral uterosacral ligaments and the right ovarian fossa and left adnexal peritoneum. Normal appearing appendix. Normal uterus tubes and ovaries bilaterally. She reports that surgeon found a portion of her bowel was inflamed. Holter Monitor 01.14.20 with Ashleigh found rare ventricular and supraventricular ectopic complexes. US abdomen and aorta performed 12.26.2019 with Ashleigh Jean Baptiste with normal pancreas, liver, dilation of ducts, gallbladder, negative sonographic Plaza?s sign, kidneys, pelvocaliectasis, spleen. Accessory splenule noted. Patent IVC. Allergen testing performed for environment and foods finding sensitivity to A. tenuis, D. farina, D. pteronyssinus, mt cedar tree, common ragweed, cat hair, dog epithelium and [place] cockroach. ROS Const Constitutional: No anorexia, fatigue, fever(s), weight change or sleep problems Eyes Eyes: No change in vision ENT ENT: No abnormal hearing, difficulty swallowing, mouth lesions, tongue swelling or throat swelling Resp Respiratory: No cough or shortness of breath Cardio Cardiology: No chest pain at rest, chest pain with exertion, shortness of breath or dyspnea on exertion Gastro GI: No difficulty swallowing Genitourinary-Female: No difficulty urinating or burning urination Musc Musculoskeletal: No joint pain, joint swelling, muscle weakness or decreased muscle mass Skin Skin: No hair loss in leg, yellowing of the eye, itchy eyes, rash, skin ulcer or skin swelling Neuro Neurology: No abnormal hearing, abnormal movements, confusion, unsteady gait/balance or memory loss Psych Psychiatric: No anxiety, No confusion and No memory loss Endo Endocrine: No fatigue or weight change Aller/Imm Allergy/Immunologic: No itchy eyes, throat swelling or tongue swelling Nik/Lymp Hematologic/Lymphatic: No easy bleeding, easy bruising or enlarged lymph nodes Exam Const General: cooperative and comfortable Nutritional Appearance: average body habitus and well nourished HENMT Head: normal to inspection Ears: hearing grossly normal bilaterally Nose: external nose normal Face and sinus: normal facial exam Mouth: oral mucosae normal Throat: posterior oropharynx normal Eyes General: appearance normal, both eyes and all related structures Neck Neck: normal visual inspection Chest Chest palpation & inspection: normal inspection of the chest and normal palpation of entire chest wall Resp Effort & Inspection: normal respiratory effort Auscultation: Bilateral: Clear to Auscultation Cardio Palpation: normal PMI Rate: regular rate Rhythm: regular rhythm GI Inspection: normal to inspection Auscultation: normal bowel sounds Percussion: normal to percussion Palpation: no hepatosplenomegaly Skin General: no rashes or lesions noted Neuro General: patient alert Extrem General: normal to inspection Psych Affect: normal affect Quality Reporting Tobacco Screening ([facility] 138) Smoking Status: Never smoker Assessment and Plan Assessment and Plan (1) Diarrhea: Status: Acute Orders: Orders: Comprehensive Metabolic Profil Today CRP Today CBC W/Diff, Automated Today Erythrocyte Sed Rate Today Celiac Disease Profile Today Immunoglobulin A Today Immunoglobulin E Today Immunoglobulin G Today Immunoglobulin M Today Miscellaneous Lab Procedure Today Miscellaneous Lab Procedure 2 Today Calprotectin, Stool Today Plan - Dr. Jennings Friend, DO: The differential diagnosis for her diarrhea does include IBS with D,, celiac disease, protein losing enteropathy, infectious diarrhea. Which would be a secretory diarrhea. 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 Also recommend to check a CBC, CMP, ESR, CRP, vital evident A, E, G, M. We will also check for signs of lupus erythematosus. She should also have an upper endoscopy to look for signs of eosinophilic diseases. We will get analysis to look for eosinophils along the biopsies of the esophagus stomach small bowel and colon to look for signs of eosinophilic diseases. We will give her a refill of Amitiza 8 mg a day. Plan Details Other Medications: New: Amitiza (lubiprostone) 8 mcg PO DAILY 90 caps 3RF NS I have re-examined the patient. There are no clinical changes since date of exam.
--- NOTE | 2021-06-22 14:45 | OP.CCLET_ITS ---
01/19/2022 Shemar Sanchez Do Re : Upper GI endoscopy procedure for Pattie Valdes Dear Laura This procedure was performed on Tuesday, June 22, 2021. My impressions and recommendations are as follows: Impressions : - Normal esophagus. Biopsied. - Gastritis. Biopsied. - Normal second portion of the duodenum. Biopsied. Recommendations : - Discharge patient to home. - Resume previous diet. - Continue present medications. - Await pathology results. My findings are described in the full procedure note, which is enclosed. If I can be of further assistance, please feel free to contact me at . Sincerely, Dick Reddy, 06/22/2021 2:44:40 PM This report has been signed electronically.
--- NOTE | 2021-06-22 14:45 | OP.EGD_ITS ---
Patient Name: Pattie Valdes Procedure Date: 06/22/2021 2:19 PM Date of : 1995 Age: 25 Procedure: Upper GI endoscopy Indications: Epigastric abdominal pain Providers: Dick Reddy DO Referring MD: Dick Reddy DO Medicines: See the Anesthesia note for documentation of the administered medications Patient Profile: This is a 25 year old female. Refer to note in patient chart for documentation of history and physical. Patient has symptoms of acute abdominal cramping, acute abdominal distention and chronic global abdominal pain. Complications: No immediate complications. Procedure: Pre-Anesthesia Assessment: - Prior to the procedure, a History and Physical was performed, and patient medications and allergies were reviewed. The patient is competent. The risks and benefits of the procedure and the sedation options and risks were discussed with the patient. All questions were answered and informed consent was obtained. Patient identification and proposed procedure were verified by the physician in the pre-procedure area. Mental Status Examination: alert and oriented. Airway Examination: normal oropharyngeal airway and neck mobility. Respiratory Examination: clear to auscultation. CV Examination: normal. Prophylactic Antibiotics: The patient does not require prophylactic antibiotics. Prior Anticoagulants: The patient has taken no previous anticoagulant or antiplatelet agents. After reviewing the risks and benefits, the patient was deemed in satisfactory condition to undergo the procedure. The anesthesia plan was to use moderate sedation / analgesia (conscious sedation). Immediately prior to administration of medications, the patient was re-assessed for adequacy to receive sedatives. The heart rate, respiratory rate, oxygen saturations, blood pressure, adequacy of pulmonary ventilation, and response to care were monitored throughout the procedure. The physical status of the patient was re-assessed after the procedure. After obtaining informed consent, the endoscope was passed under direct vision. Throughout the procedure, the patient's blood pressure, pulse, and oxygen saturations were monitored continuously. The colonoscope was introduced through the mouth, and advanced to the second part of duodenum. The upper GI endoscopy was accomplished without difficulty. The patient tolerated the procedure well. Moderate Sedation: Moderate (conscious) sedation was administered by the endoscopy nurse and supervised by the endoscopist. The patient's oxygen saturation, heart rate, blood pressure and response to care were monitored. Total physician intraservice time was 15 minutes. Scope In: 2:30:03 PM Scope Out: 2:38:09 PM Total Procedure Duration Time 0 hours 8 minutes 6 seconds Findings: The examined esophagus was normal. Biopsies were obtained from the proximal and distal esophagus with cold forceps for histology of suspected eosinophilic esophagitis. Patchy moderate inflammation characterized by congestion (edema) was found in the gastric body. Biopsies were taken with a cold forceps for histology. Verification of patient identification for the specimen was done. Estimated blood loss was minimal. The second portion of the duodenum was normal. Biopsies were taken with a cold forceps for histology. Verification of patient identification for the specimen was done. Estimated blood loss was minimal. Impression: - Normal esophagus. Biopsied. - Gastritis. Biopsied. - Normal second portion of the duodenum. Biopsied. Recommendation: - Discharge patient to home. - Resume previous diet. - Continue present medications. - Await pathology results. Procedure Code(s): --- Professional --- 01940, Esophagogastroduodenoscopy, flexible, transoral; with biopsy, single or multiple 60084, 59, Moderate sedation services provided by the same physician or other qualified health prompt care rn performing the diagnostic or therapeutic service that the sedation supports, requiring the presence of an independent trained observer to assist in the monitoring of the patient's level of consciousness and physiological status; initial 15 minutes of intraservice time, patient age 5 years or older CPT copyright 2017 [employer]. All rights reserved. The codes documented in this report are preliminary and upon personal care service provider review may be revised to meet current compliance requirements. Dick Reddy DO 06/22/2021 2:44:40 PM This report has been signed electronically. Number of Addenda: 1 Note Initiated On: 06/22/2021 2:19 PM Addendum Number: 1 Addendum Date: 01/19/2022 6:42:41 AM MAC was used as sedation for this procedure. Dick Reddy DO 01/19/2022 6:42:47 AM This report has been signed electronically.
[2021-06-22 15:10] VITALS: BP 116/79; BP 89/49; PULSE 74; RESP 14; TEMP 36.2; O2SAT 100
--- NOTE | 2021-06-22 15:11 | OP.COLON_ITS ---
Patient Name: Pattie Valdes Procedure Date: 06/22/2021 2:38 PM Date of : 1995 Age: 25 Procedure: Colonoscopy Indications: Clinically significant diarrhea of unexplained origin Providers: Dick Reddy DO Referring MD: Dick Reddy DO Medicines: See the Anesthesia note for documentation of the administered medications Patient Profile: This is a 25 year old female. Refer to note in patient chart for documentation of history and physical. Patient has symptoms of acute abdominal cramping, acute abdominal distention and chronic global abdominal pain. Last Colonoscopy: date unknown. Unable to locate last colonoscopy report. Complications: No immediate complications. Procedure: Pre-Anesthesia Assessment: - Prior to the procedure, a History and Physical was performed, and patient medications and allergies were reviewed. The patient is competent. The risks and benefits of the procedure and the sedation options and risks were discussed with the patient. All questions were answered and informed consent was obtained. Patient identification and proposed procedure were verified by the physician in the pre-procedure area. Mental Status Examination: alert and oriented. Airway Examination: normal oropharyngeal airway and neck mobility. Respiratory Examination: clear to auscultation. CV Examination: normal. Prophylactic Antibiotics: The patient does not require prophylactic antibiotics. Prior Anticoagulants: The patient has taken no previous anticoagulant or antiplatelet agents. After reviewing the risks and benefits, the patient was deemed in satisfactory condition to undergo the procedure. The anesthesia plan was to use moderate sedation / analgesia (conscious sedation). Immediately prior to administration of medications, the patient was re-assessed for adequacy to receive sedatives. The heart rate, respiratory rate, oxygen saturations, blood pressure, adequacy of pulmonary ventilation, and response to care were monitored throughout the procedure. The physical status of the patient was re-assessed after the procedure. After I obtained informed consent, the scope was passed under direct vision. Throughout the procedure, the patient's blood pressure, pulse, and oxygen saturations were monitored continuously. The colonoscope was introduced through the anus and advanced to the terminal ileum. The colonoscopy was performed without difficulty. The patient tolerated the procedure well. The quality of the bowel preparation was good. Moderate Sedation: Moderate (conscious) sedation was administered by the endoscopy nurse and supervised by the endoscopist. The patient's oxygen saturation, heart rate, blood pressure and response to care were monitored. Total physician intraservice time was 15 minutes. Scope In: 2:48:17 PM Scope Withdrawal Time 0 hours 10 minutes 51 seconds Scope Out: 3:05:27 PM Total Procedure Duration Time 0 hours 17 minutes 10 seconds Findings: A 5 mm polyp was found in the ascending colon. The polyp was sessile. The polyp was removed with a hot snare. Resection and retrieval were complete. Verification of patient identification for the specimen was done. Estimated blood loss was minimal. The rectum, recto-sigmoid colon, sigmoid colon, descending colon, splenic flexure, transverse colon and hepatic flexure appeared normal. Biopsies for histology were taken with a cold forceps from the ascending colon, right colon, left colon, transverse colon, right transverse colon, left transverse colon, descending colon, sigmoid colon, rectum and rectosigmoid colon for evaluation of microscopic colitis. Verification of patient identification for the specimen was done. Estimated blood loss was minimal. The terminal ileum appeared normal. Biopsies were taken with a cold forceps for histology. Verification of patient identification for the specimen was done. Estimated blood loss was minimal. Impression: - One 5 mm polyp in the ascending colon, removed with a hot snare. Resected and retrieved. - The rectum, recto-sigmoid colon, sigmoid colon, descending colon, splenic flexure, transverse colon and hepatic flexure are normal. Biopsied. - The examined portion of the ileum was normal. Biopsied. Recommendation: - Discharge patient to home. - Resume previous diet. - Continue present medications. - Await pathology results. - Repeat colonoscopy is recommended for surveillance. The colonoscopy date will be determined after pathology results from today's exam become available for review. Procedure Code(s): --- Professional --- 25094, Colonoscopy, flexible; with removal of tumor(s), polyp(s), or other lesion(s) by snare technique 79331, 59, Colonoscopy, flexible; with biopsy, single or multiple 20277, 59, Moderate sedation services provided by the same physician or other qualified health child care giver performing the diagnostic or therapeutic service that the sedation supports, requiring the presence of an independent trained observer to assist in the monitoring of the patient's level of consciousness and physiological status; initial 15 minutes of intraservice time, patient age 5 years or older CPT copyright 2017 [employer]. All rights reserved. The codes documented in this report are preliminary and upon research professor of biostatistics review may be revised to meet current compliance requirements. Dick Reddy DO 06/22/2021 3:11:00 PM This report has been signed electronically. Number of Addenda: 1 Note Initiated On: 06/22/2021 2:38 PM Addendum Number: 1 Addendum Date: 01/19/2022 6:42:58 AM MAC was used as sedation for this procedure. Dick Reddy DO 01/19/2022 6:43:02 AM This report has been signed electronically.
--- NOTE | 2021-06-22 15:12 | OP.CCLET_ITS ---
01/19/2022 Shemar Sanchez Do Re : Colonoscopy procedure for Pattie Valdes Dear Laura This procedure was performed on Tuesday, June 22, 2021. My impressions and recommendations are as follows: Impressions : - One 5 mm polyp in the ascending colon, removed with a hot snare. Resected and retrieved. - The rectum, recto-sigmoid colon, sigmoid colon, descending colon, splenic flexure, transverse colon and hepatic flexure are normal. Biopsied. - The examined portion of the ileum was normal. Biopsied. Recommendations : - Discharge patient to home. - Resume previous diet. - Continue present medications. - Await pathology results. - Repeat colonoscopy is recommended for surveillance. The colonoscopy date will be determined after pathology results from today's exam become available for review. My findings are described in the full procedure note, which is enclosed. If I can be of further assistance, please feel free to contact me at . Sincerely, Dick Reddy DO 06/22/2021 3:11:00 PM This report has been signed electronically.
[2021-06-22 15:15] VITALS: BP 116/79; BP 96/56; PULSE 79; RESP 14; O2SAT 100
[2021-06-22 15:20] VITALS: BP 116/79; BP 97/65; PULSE 75; RESP 14; O2SAT 100
[2021-06-22 15:25] VITALS: BP 116/79; BP 96/62; PULSE 72; RESP 14; TEMP 36.7; O2SAT 100
== END 2021-06-22 23:59 | disposition home or self-care (01) ==
LOC: EN 12:51 → AC 12:51
PROVIDERS: Anesthesiology; PCP Student in an Organized Health Care Education/Training Program; Referring Provider Student in an Organized Health Care Education/Training Program; Visit Provider Internal Medicine Gastroenterology
PROC: 0DJD8ZZ Inspection of Lower Intestinal Tract, Via Natural or Artificial Opening Endoscopic (ICD-10-PCS; CPT 45378; principal; 2021-06-22 13:55)
DX: K63.5 Polyp of colon (principal); K29.50 Unspecified chronic gastritis without bleeding; K58.0 Irritable bowel syndrome with diarrhea; F32.A Depression, unspecified; F41.9 Anxiety disorder, unspecified; Z79.899 Other long term (current) drug therapy
CPT/HCPCS: 45380; 45385; 43239; 81025; 87426; 88305; 88313; 88342; C9803; J7120

== ENCOUNTER 2021-06-23 07:48 | Inpatient (IN) | payer BC, SELFPAY ==
[2021-06-23 07:49] VITALS: BP 138/83; PULSE 103; RESP 17; TEMP 36.1; O2SAT 95; BMI 26.5
--- NOTE | 2021-06-23 08:05 | ED.VIS.GI ---
HPI HPI - GI History of Present Illness Chief Complaint: Abd Pain Informant: patient Abdominal Pain/Flank Pain Onset: Today Context: - (woke her up from sleep about 3 hrs ago) Timing: Continuous Quality: - (pain) Location: Diffuse Current Severity: Severe Maximum Severity: Severe Worsened by: Nothing Relieved by: Nothing Nausea/Vomiting/Emesis GI Symptom: Positive for Nausea and Vomiting Onset: Today Quality: Positive for Nonbilious Episodes: 1 Diarrhea/Melena/Hematochezia GI Symptom: Positive for Diarrhea; Negative for Melena and Hematochezia Onset: Today Episodes: 1 Associated Symptoms Associated Symptoms: Negative for Dysuria, Frequency, Hematuria and Urgency Narrative Narrative: Patient had colonoscopy and EGD yesterday around 1430. She states afterwards she was tired but she was fine. She was passing flatus without difficulty. No bleeding from anywhere. She had a polyp removed and sent for pathology, EGD showed gastritis, otherwise they were fairly unremarkable according to documentation I have available. States she woke up all of a sudden this morning with severe pain everywhere. She has history of IBS, and had a laparoscopy several months ago for endometriosis which was fairly significant, and she has never had pain like this with either one of those. [facility] Medical History Anxiety Asthma Depression Heartburn Irritable bowel syndrome (IBS) Migraine headache Non-smoker Ovarian cyst Syncope Wears glasses Home Medications cetirizine 10 mg capsule 10 mg PO DAILY 10/07/19 [History Last Taken 06/21/21] cholecalciferol (vitamin D3) [Vitamin D3] 50 mcg PO DAILY 05/06/21 [History Last Taken 06/18/21] multivitamin 1 cap PO DAILY 05/06/21 [History Last Taken 06/18/21] ascorbic acid (vitamin C) [Vitamin C] 500 mg PO DAILY 06/18/21 [History Last Taken 06/18/21] citalopram [Celexa] 20 mg PO DAILY 06/18/21 [History Last Taken 06/22/21] lactobacillus combination no.4 [Probiotic] 3,000 mmu cells PO DAILY 06/18/21 [History Last Taken 06/18/21] magnesium 250 mg PO DAILY 06/18/21 [History Last Taken 06/18/21] zinc 50 mg PO DAILY 06/18/21 [History Last Taken 06/18/21] ibuprofen 400 mg PO Q8H PRN 06/23/21 [History Last Taken 06/21/21] lubiprostone [Amitiza] 8 mcg PO DAILY 06/23/21 [History Last Taken 06/19/21] Allergy/AdvReac Type Severity Reaction Status Date / Time gluten Allergy GI upset Verified 06/23/21 14:27 milk Allergy GI upset Verified 06/23/21 14:27 TEA TREE OIL Allergy HIVES Uncoded 06/23/21 07:48 Family History no significant family his Surgical History History of carpal tunnel release Hx of colonoscopy with polypectomy Hx of exploratory laparotomy [place] teeth extracted Social History Smoking Status: Never smoker alcohol intake: never ROS ROS ED Constitutional Constitutional ED: Denies chills or fever(s) Eyes Eyes: Denies change in vision or diplopia ENT ENT ED: Denies rhinorrhea or sore throat Cardiovascular Cardiovascular: Denies chest pain or palpitations Respiratory/Chest Respiratory/Chest: Denies cough or dyspnea Gastrointestinal Gastrointestinal: Reports as per HPI, abdominal pain, diarrhea, nausea and vomiting Genitourinary Genitourinary ED: Denies dysuria or hematuria Musculoskeletal Musculoskeletal: Denies back pain or neck pain Integumentary Denies abscess or rash Neurologic Neurologic: Denies headache(s), paresthesias or weakness Psychiatric Psychiatric: Reports anxiety; Denies suicidal thoughts EXAM Physical Exam Const Vital Signs: 06/23/21 07:49 06/23/21 12:17 Temperature 96.9 F L Temperature Source Temporal Pulse Rate 103 H 92 Respiratory Rate 17 14 Blood Pressure 138/83 H 106/74 Blood Pressure Mean 101 84 Pulse Ox 95 97 Oxygen Delivery Method Room Air Room Air Positive well nourished and well developed Constitutional Narrative: in painful distress, rolling back and forth in the bed General Appearance ED: well developed HEENT Reports moist mucous membranes normocephalic and atraumatic Eyes PERRL and EOMs intact bilaterally Neck full ROM and supple Resp normal respiratory effort and clear to auscultation bilaterally Cardio regular rate, regular rhythm and no murmurs GI non-distended GI Narrative: Tender left mid abdomen, the rest of her abdomen is nontender. There is no guarding or rebound tenderness. Auscultation: normoactive bowel sounds Palpation: soft Back/Spine no CVA tenderness General Back: other FROM Extremity normal to inspection General Extremety ED: Negative for edema, pulses abnormal or tenderness General Extremity: Negative for edema or pulses abnormal Neuro oriented x3, CN's II-XII intact bilaterally and no sensory deficits noted Sensorium / Orientation: awake and alert Motor Exam: strength 5/5 throughout Psych mental status grossly normal, thought process normal and cooperative Activity / Motor Behavior: restless Mood & Affect: anxious Skin no rashes or lesions noted and no wounds MDM MDM MDM Narrative Medical decision making narrative: Nursing to place an IV and provide analgesia, fluids, Zofran. Will need to obtain CT with IV contrast due to the fact that she is very thin in order to maximize value of imaging. No peritoneal signs to suggest perforated colon. Work-up shows a mild leukocytosis, and CT findings of right hemicolitis and right pericholecystic fluid. She really is not as tender there as she is on the left, and even after morphine she is still writhing in pain. Tenderness is relatively mild. I discussed with Dr. Reddy who did her scope yesterday, he suggested is possible if she was a little fluid under loaded because of her size that she could have transient ischemic colitis in which case the treatment would be more fluids and analgesia which I did provide, but I am also going to have surgery evaluate the patient, and plan on admitting her. After discussion with surgery, he recommended repeating the CT but with oral contrast, not rectal, to evaluate for possible microperforation, and providing empiric antibiotics. Indeed the area of colitis on the CT is in the right area of the colon where the polyp appears to have been resected from. Cefepime 1g IV ordered while pt drinking contrast. P.o. contrasted CT: The contrast did not get down far enough, so radiology waiting in order to shoot the images again. Dr. Lindsay saw the pt and agrees w/ above plan for now and will follow. The CT was done and did not show any differences compared with the prior. Lab Data Labs: Laboratory Results - last 24 hr 06/23/21 06/23/21 08:10 08:10 WBC 13.8 H RBC 4.39 Hgb 13.7 Hct 39.4 MCV 89.7 MCH 31.2 MCHC 34.8 RDW Std Deviation 41.6 RDW Coeff of Katya 12.6 Plt Count 168 MPV 10.4 Immature Gran % (Auto) 0.300 Neut % (Auto) 80.9 H Lymph % (Auto) 10.4 L [place] % (Auto) 7.2 Eos % (Auto) 1.0 Baso % (Auto) 0.2 Absolute Neuts (auto) 11.1 H Absolute Lymphs (auto) 1.43 Nucleated RBC % 0 Sodium 140 Potassium 3.1 L Chloride 102 Carbon Dioxide 30.0 Anion Gap 8 BUN 12 Creatinine 0.66 Estim Creat Clear Calc 107.79 Est GFR (MDRD) Af Amer 140 Est GFR (MDRD) Non-Af 116 BUN/Creatinine Ratio 18.2 Glucose 133 H Calcium 8.8 Total Bilirubin 1.10 H AST 58 H ALT 55 Alkaline Phosphatase 63 Total Protein 7.1 Albumin 4.1 Globulin 3.0 Albumin/Globulin Ratio 1.4 Lipase 116 Radiography Diagnostic Testing: Clinical Impression(s) from Imaging Studies Abdomen/Pelvis CT 06/23/21 08:45 IMPRESSION: Edematous changes of the portal triads suggestive of the possible hepatitis. Contracted gallbladder. Small amount of pericholecystic fluid. Findings suggestive of a colitis of the right hemicolon. Dominant follicle in the right ovary. Small amount of free fluid in the pelvis. There is prominence of the left gonadal vein. Electronically Signed: Amarjit Garcia MD at 9:08 EST , Abdomen CT 06/23/21 10:31 IMPRESSION: There has been no change as compared to prior study done earlier in the day. Electronically Signed: Amarjit Garcia MD at 12:36 EST , Discharge Plan Dx/Rx/DC Orders Clinical Impression: Diffuse abdominal pain, Colitis, Status post colonoscopy with polypectomy Disposition Disposition: Acute Care Hospital [facility] Discharge Date/Time: 06/23/21 13:53
[2021-06-23] MEDS: Ondansetron 4 MG/2 ML Vial IV ×3 (08:12→21:49)
[2021-06-23] MEDS: Morphine 4 MG/ML Syringe IV ×2 (08:12→09:38)
[2021-06-23] MEDS: 0.9% Normal Saline 1,000 ML 1000 ML IV (08:14)
[2021-06-23 08:18] LABS: Absolute Lymphocyte Count 1.43 X10^3/uL (0.83-4.51); Absolute Neutrophil Count 11.1 X10^3/uL (2.0-7.7); Basophil# 0.03 X10^3/uL; Basophil% 0.2 % (0-1); Eosinophil# 0.14 X10^3/uL; Hematocrit 39.4 % (37-47); Hemoglobin 13.7 g/dL (12.0-15.0); Lymphocyte # 1.43 X10^3/ul (0.83-4.51); Lymphocyte % 10.4 % (19-41); Mean Corp Hgb Conc 34.8 g/dL (32-36); Mean Corpuscular Hgb 31.2 pg (27.0-32.0); Mean Corpuscular Volume 89.7 fL (81-99); Mean Platelet Vol. 10.4 fl (6.2-12.0); Monocyte# 0.99 X10^3/uL; Monocyte% 7.2 % (0-10); NRBC Flagged by Analyzer 0 % (0-5); Neutrophil # 11.14 X10^3/uL (2.7-7.7); Neutrophil % 80.9 % (47-70); Platelet Count 168 K/mm3 (150-450); RBC Distribution Width CV 12.6 % (11.6-14.6); RBC Distribution Width SD 41.6 fl (35.1-43.9); Red Blood Count 4.39 M/mm3 (4.2-5.4); White Blood Count 13.8 K/mm3 (4.4-11.0)
[2021-06-23 08:39] LABS: ALB/GLOB Ratio 1.4 RATIO (0.9-2.4); AST(SGOT) 58 U/L (15-37); Alanine Aminotransfer ALT/SGPT 55 U/L (13-56); Albumin, Serum 4.1 g/dL (3.2-5.0); Alkaline Phosphatase 63 U/L (45-117); Anion Gap 8 (5-15); BUN 12 mg/dL (7-18); BUN/Creat Ratio 18.2 RATIO (10-20); Calcium,Total 8.8 mg/dL (8.5-10.1); Chloride 102 mmol/L (98-107); Creatinine, Serum 0.66 mg/dL (0.55-1.02); EST Glomerular Filtration Rate 116 mL/min (>60); Est Glom Filt Rate - Afr Amer 140 mL/min (>60); Estimated Creatinine Clearance 107.79 ml/min; Glucose 133 mg/dL (74-106); Lipase 116 U/L (73-393); Potassium 3.1 mmol/L (3.5-5.1); Protein, Total 7.1 g/dL (6.4-8.2); Sodium Level 140 mmol/L (136-145)
--- NOTE | 2021-06-23 08:45 | CT_ITS ---
STUDY: CT ABDOMEN AND PELVIS WITH CONTRAST REASON FOR EXAM: Female, 25 years old. Diffuse abd pain, L abd tend RADIATION DOSAGE (If Supplied By Facility): CTDIvol = ( 9.41 ) mGy, DLP = ( 276.77 ) mGycm TECHNIQUE: Transaxial images were obtained from the dome of the diaphragm to the symphysis pubis without oral contrast. IV 100mL Isovue-300 was administered. Sagittal and coronal images were reconstructed. Individualized dose optimization techniques were used for this CT. COMPARISON: None. FINDINGS: The visualized lung bases are unremarkable. The visualized portions of the heart are within normal limits. There is a edematous changes of the portal triads. This may represent changes secondary to hepatitis. Small amount of pericholecystic fluid. The gallbladder is contracted. Normal spleen. Normal pancreas. Normal bilateral adrenal glands. Normal right kidney. Normal left kidney. Normal visualized stomach. Normal small intestine. There is heterogeneous thickening of the right hemicolon. Colitis should be ruled out. There is non-visualization of the appendix. Normal abdominal aorta. Normal inferior vena cava. Normal retroperitoneum. Normal urinary bladder. There is a 1.7 cm follicle in the right ovary. There is prominence of the left gonadal vein. Small amount of free fluid in the pelvis. There is a small umbilical hernia containing fat. Normal osseous structures. CT/Abdomen/Pelvis W IV Cont ONLY IMPRESSION: Edematous changes of the portal triads suggestive of the possible hepatitis. Contracted gallbladder. Small amount of pericholecystic fluid. Findings suggestive of a colitis of the right hemicolon. Dominant follicle in the right ovary. Small amount of free fluid in the pelvis. There is prominence of the left gonadal vein. Electronically Signed: Amarjit Garcia MD at 9:08 EST ,
[2021-06-23] MEDS: Ketorolac 30 MG/ML Syringe IV (09:37)
--- NOTE | 2021-06-23 10:31 | CT_ITS ---
STUDY: CT ABDOMEN AND PELVIS WITHOUT CONTRAST REASON FOR EXAM: Female, 25 years old. Abd pain, s/p R colon polypectomy, r/o perf RADIATION DOSAGE (If Supplied By Facility): CTDIvol = ( 6.04 ) mGy, DLP = ( 283.89 ) mGycm TECHNIQUE: Transaxial images were obtained from the dome of the diaphragm to the symphysis pubis without oral contrast, and without intravenous contrast. Sagittal and coronal images were reconstructed. Individualized dose optimization techniques were used for this CT. COMPARISON: Comparison is made with prior examination done earlier today. FINDINGS: Oral contrast is seen within the small bowel loops. Contrast is seen within the kidneys and collecting system and urinary bladder. There has been no change as compared to prior study. CT/Abdomen/Pel W ORAL Cont Only IMPRESSION: There has been no change as compared to prior study done earlier in the day. Electronically Signed: Amarjit Garcia MD at 12:36 EST ,
[2021-06-23] MEDS: HYDROmorphone 1 MG/ML Syringe IV (10:41)
[2021-06-23] MEDS: 0.9% Normal Saline 1,000 ML 999 ML IV (10:42)
[2021-06-23 12:17] VITALS: BP 106/74; PULSE 92; RESP 14; O2SAT 97
--- NOTE | 2021-06-23 12:57 | HP.PCM.HOS_ITS ---
HPI - General General Date of Admission: 06/23/21 Date of Service: 06/23/21 Chief Complaint: Abdominal pain -1 day HPI Narrative CARMEN RUTLEDGE, is a 25 F who presents with above. Patient with PMHx of IBS, chronic diarrhea who had colonoscopy on 06/22/21 with removal of a polyp in the ascending colon. Patient stated that she was in her usual state of health until this morning when she started having crampy abdominal pain. Pain waxes and wanes, but is severe enough to prevent her from doing activities daily living. She had associated nausea and vomiting. Denies any fever or chills. No hematochezia or melena stools. Vitals were stable in the ED. WBC count is 13.8, hemoglobin 13.7, platelet count is 168. Sodium is 140, potassium 3.1,Chloride is 102, bicarbonate 30, BUN 12, creatinine 0.66. CT of abdomen and pelvis showed edematous changes of the portal triad signs of possible hepatitis. Contracted gallbladder. Colitis of the right hemicolon. Patient did require a lot of pain medicines in the ED. [facility] Medical History Anxiety Asthma Depression Heartburn Irritable bowel syndrome (IBS) Migraine headache Non-smoker Ovarian cyst Syncope Wears glasses Home Medications cetirizine 10 mg capsule 10 mg PO DAILY 10/07/19 [History Last Taken 06/21/21] cholecalciferol (vitamin D3) [Vitamin D3] 50 mcg PO DAILY 05/06/21 [History Last Taken 06/18/21] multivitamin 1 cap PO DAILY 05/06/21 [History Last Taken 06/18/21] ascorbic acid (vitamin C) [Vitamin C] 500 mg PO DAILY 06/18/21 [History Last Taken 06/18/21] citalopram [Celexa] 20 mg PO DAILY 06/18/21 [History Last Taken 06/22/21] lactobacillus combination no.4 [Probiotic] 3,000 mmu cells PO DAILY 06/18/21 [History Last Taken 06/18/21] magnesium 250 mg PO DAILY 06/18/21 [History Last Taken 06/18/21] zinc 50 mg PO DAILY 06/18/21 [History Last Taken 06/18/21] ibuprofen 400 mg PO Q8H PRN 06/23/21 [History Last Taken 06/21/21] lubiprostone [Amitiza] 8 mcg PO DAILY 06/23/21 [History Last Taken 06/19/21] Allergy/AdvReac Type Severity Reaction Status Date / Time gluten Allergy GI upset Verified 06/23/21 14:27 milk Allergy GI upset Verified 06/23/21 14:27 TEA TREE OIL Allergy HIVES Uncoded 06/23/21 07:48 Family History no significant family his no significant family history Surgical History History of carpal tunnel release Hx of colonoscopy with polypectomy Hx of exploratory laparotomy [place] teeth extracted Social History Smoking Status: Never smoker alcohol intake: never ROS ROS Narrative Constitutional: Denies: Anorexia, Chills, Fever, Night Sweats, Weight Change Eyes: Denies: Blurred vision, Cataracts, Conjunctivae Inflammation, Pain, Redness, Vision Change HEENT: Denies: Difficulty Hearing, Difficulty Swallowing, Head Aches, Hearing Changes, Sinus Congestion, Sinus Drainage Cardiovascular: Denies: Chest Pain, Orthopnea, Palpitations Respiratory: Denies: Cough, Shortness of breath at rest, Sputum production Gastrointestinal: See HPI Genitourinary: Denies: Dysuria Musculoskeletal: Denies: Joint Pain, Joint stiffness, Joint swelling, Joint Tenderness Skin: Denies: Rash, Wounds Neurological: Denies: Numbness, Tingling, Focal weakness Vital Signs Vital Signs Vital Signs: 06/23/21 07:49 06/23/21 12:17 Temperature 96.9 F L Temperature Source Temporal Pulse Rate 103 H 92 Respiratory Rate 17 14 Blood Pressure 138/83 H 106/74 Blood Pressure Mean 101 84 Pulse Ox 95 97 Oxygen Delivery Method Room Air Room Air Weight Weight: 68.039 kg Body Mass Index (BMI) 26.5 Physical Exam Narrative Physical exam: General: Alert, Oriented x3, Cooperative, No apparent distress, Well developed HEENT: Atraumatic Oral: Moist Mucosa Neck: Supple Lungs: Clear to auscultation Cardiovascular: HS I+II, regular, no murmurs Abdomen: Hypoactive bowel sounds present, Soft, generalized tenderness, guarding, no rebound tenderness Extremities: No edema Skin: No rashes, No breakdown Neurological: Grossly intact Psych/Mental Status: Appropriate Results Lab / Micro Data Result Diagrams: 06/23/21 08:10 06/23/21 08:10 Labs: Laboratory Results - last 24 hr 06/23/21 08:10: WBC 13.8 H, RBC 4.39, Hgb 13.7, Hct 39.4, MCV 89.7, MCH 31.2, MCHC 34.8, RDW Std Deviation 41.6, RDW Coeff of Katya 12.6, Plt Count 168, MPV 10.4, Immature Gran % (Auto) 0.300, Neut % (Auto) 80.9 H, Lymph % (Auto) 10.4 L, [place] % (Auto) 7.2, Eos % (Auto) 1.0, Baso % (Auto) 0.2, Absolute Neuts (auto) 11.1 H, Absolute Lymphs (auto) 1.43, Nucleated RBC % 0 06/23/21 08:10: Sodium 140, Potassium 3.1 L, Chloride 102, Carbon Dioxide 30.0, Anion Gap 8, BUN 12, Creatinine 0.66, Estim Creat Clear Calc 107.79, Est GFR (MDRD) Af Amer 140, Est GFR (MDRD) Non-Af 116, BUN/Creatinine Ratio 18.2, Glucose 133 H, Calcium 8.8, Total Bilirubin 1.10 H, AST 58 H, ALT 55, Alkaline Phosphatase 63, Total Protein 7.1, Albumin 4.1, Globulin 3.0, Albumin/Globulin Ratio 1.4, Lipase 116 Radiology Impression Abdomen/Pelvis CT 06/23/21 08:45 IMPRESSION: Edematous changes of the portal triads suggestive of the possible hepatitis. Contracted gallbladder. Small amount of pericholecystic fluid. Findings suggestive of a colitis of the right hemicolon. Dominant follicle in the right ovary. Small amount of free fluid in the pelvis. There is prominence of the left gonadal vein. Electronically Signed: Amarjit Garcia MD at 9:08 EST , Abdomen CT 06/23/21 10:31 IMPRESSION: There has been no change as compared to prior study done earlier in the day. Electronically Signed: Amarjit Garcia MD at 12:36 EST , Assessment & Plan Assessment/Plan (1) Diffuse abdominal pain: (2) Status post colonoscopy with polypectomy: (3) Colitis: PLAN: 1. Acute abdominal pain likely secondary probable acute colitis s/p recent colonoscopy/EGD, s/p polypectomy in the ascending colon CT abd/pelvis showed edematous changes of the portal triads; colitis of right hemicolon LFTs are minimally elevated. Repeat CT scan of abd/pelvis is pending as contrast was said not to have reached the right side of the colon at the time of the second CT General surgery and GI consulted from ED; Started on IV cefipime; continue IV Zosyn Repeat blood work in a.m. 2. DVT PPx - low risk; SCDs Charges/Coding Visit Charges OBSV E&M: 80365 Initial observation care L3
--- NOTE | 2021-06-23 13:00 | NURSING ---
MED SURG NUAMA DIFFUSE ABD PAIN S/P COLONSCOPY, COLITIS
[2021-06-23] MEDS: HYDROmorphone 0.5 MG/0.5 ML SYRINGE IV (13:32)
[2021-06-23 13:45] VITALS: BP 118/80; PULSE 96; RESP 17; TEMP 36.7; O2SAT 97
--- NOTE | 2021-06-23 13:56 | CON.PCM.SX_ITS ---
Assessment & Plan Assessment/Plan (1) Diffuse abdominal pain: PLAN: Patient is having diffuse abdominal pain 1 day postoperative from EGD and colonoscopy. Patient had a CT scan which showed some thickening of the ascending colon. I did ask for a repeat CT with oral contrast but the contrast was not to the colon and I believe there repeating images once the contrast reaches the colon. At this time the patient is soft but tender with no guarding or peritoneal signs. I will follow back up on the CT scan repeat but at this time due to the unknown etiology I recommend admission on antibiotics and IV fluids and keeping the patient n.p.o. in case her condition worsens. If there is any development of peritoneal signs or fever or increase in white count tomorrow I may consider exploratory laparoscopy. I believe the pain is likely due to polypectomy in the ascending colon performed yesterday. Continue to obse rve at this time and control pain. Will follow closely. Ector Lindsay MD Pager: [facility] [address] [place] [address], [address] [place] [address] Office: HPI Consult Data Date of Consult: 06/23/21 HPI Narrative HPI Narrative: CARMEN RUTLEDGE, is a 25 F who presents with severe abdominal pain. Patient reports the pain is diffuse. The patient says that it was extremely painful when she woke up this morning and then she was given pain medication in the emergency room and then the pain returned immediately. The patient does not note any nausea or vomiting. The patient had EGD and colonoscopy yesterday. [facility] Medical History Anxiety Asthma Depression Heartburn Irritable bowel syndrome (IBS) Migraine headache Non-smoker Syncope Wears glasses Home Medications cetirizine 10 mg capsule 10 mg PO DAILY 10/07/19 [History Last Taken Unknown] cholecalciferol (vitamin D3) [Vitamin D3] 50 mcg PO DAILY 05/06/21 [History Last Taken Unknown] multivitamin 1 cap PO DAILY 05/06/21 [History Last Taken Unknown] ibuprofen 800 mg PO Q8H PRN #30 tab 05/13/21 [Rx Last Taken Unknown] Amitiza 8 mcg capsule 8 mcg PO DAILY #90 cap NS 06/07/21 [Rx Last Taken Unknown] ascorbic acid (vitamin C) [Vitamin C] 500 mg PO DAILY 06/18/21 [History Last Taken Unknown] citalopram [Celexa] 20 mg PO DAILY 06/18/21 [History Last Taken Unknown] lactobacillus combination no.4 [Probiotic] 3,000 mmu cells PO DAILY 06/18/21 [History Last Taken Unknown] magnesium 250 mg PO DAILY 06/18/21 [History Last Taken Unknown] zinc 50 mg PO DAILY 06/18/21 [History Last Taken Unknown] Allergy/AdvReac Type Severity Reaction Status Date / Time TEA TREE OIL Allergy HIVES Uncoded 06/23/21 07:48 Family History no significant family his Surgical History History of carpal tunnel release Hx of colonoscopy with polypectomy Hx of exploratory laparotomy [place] teeth extracted Social History Smoking Status: Never smoker alcohol intake: never ROS Constitutional Constitutional: Reports anorexia; Denies chills Eyes Eyes: Denies blurry vision ENT HEENT: Denies abnormal hearing Cardiovascular Cardiovascular: Denies chest pain Respiratory/Chest Respiratory/Chest: Denies cough Gastrointestinal Gastrointestinal: Reports abdominal pain; Denies constipation, diarrhea, nausea or vomiting Physical Exam Const alert and oriented x3 Eyes PERRL Neck full ROM Chest inspection of chest normal Resp normal respiratory effort and normal air movement Cardio regular rate and regular rhythm Rate: regular rate GI soft to palpation and non-distended Palpation: tender; Negative for guarding Back/Spine no CVA tenderness Neuro CN's II-XII intact bilaterally Lab / Micro Data Result Diagrams: 06/23/21 08:10 06/23/21 08:10 Labs: Laboratory Results - last 24 hr 06/23/21 08:10: WBC 13.8 H, RBC 4.39, Hgb 13.7, Hct 39.4, MCV 89.7, MCH 31.2, MCHC 34.8, RDW Std Deviation 41.6, RDW Coeff of Katya 12.6, Plt Count 168, MPV 10.4, Immature Gran % (Auto) 0.300, Neut % (Auto) 80.9 H, Lymph % (Auto) 10.4 L, [place] % (Auto) 7.2, Eos % (Auto) 1.0, Baso % (Auto) 0.2, Absolute Neuts (auto) 11.1 H, Absolute Lymphs (auto) 1.43, Nucleated RBC % 0 06/23/21 08:10: Sodium 140, Potassium 3.1 L, Chloride 102, Carbon Dioxide 30.0, Anion Gap 8, BUN 12, Creatinine 0.66, Estim Creat Clear Calc 107.79, Est GFR (MDRD) Af Amer 140, Est GFR (MDRD) Non-Af 116, BUN/Creatinine Ratio 18.2, Glucose 133 H, Calcium 8.8, Total Bilirubin 1.10 H, AST 58 H, ALT 55, Alkaline Phosphatase 63, Total Protein 7.1, Albumin 4.1, Globulin 3.0, Albumin/Globulin Ratio 1.4, Lipase 116 Radiology Impression Abdomen/Pelvis CT 06/23/21 08:45 IMPRESSION: Edematous changes of the portal triads suggestive of the possible hepatitis. Contracted gallbladder. Small amount of pericholecystic fluid. Findings suggestive of a colitis of the right hemicolon. Dominant follicle in the right ovary. Small amount of free fluid in the pelvis. There is prominence of the left gonadal vein. Electronically Signed: Amarjit Garcia MD at 9:08 EST , Abdomen CT 06/23/21 10:31 IMPRESSION: There has been no change as compared to prior study done earlier in the day. Electronically Signed: Amarjit Garcia MD at 12:36 EST ,
[2021-06-23 14:15] VITALS: BP 109/75; PULSE 81; RESP 16; TEMP 36.4; O2SAT 92
[2021-06-23 14:16] VITALS: BMI 20.5
--- NOTE | 2021-06-23 16:11 | CT_ITS ---
STUDY: CT Abdomen And Pelvis W/O Contrast Injection 06/23/2021 5:20 PM REASON FOR EXAM: Female, 25 years old. Colonoscopy w/ polyp removed from ascending colon on 06/22.PAIN abdominal pain TECHNIQUE: Transaxial images were obtained with oral Gastrografin contrast, and without intravenous contrast. Individualized dose optimization techniques were used for this CT. COMPARISON: Jun 23 2021 12:21pm FINDINGS: The visualized lung bases are unremarkable. The visualized portions of the heart are within normal limits. Normal liver. Normal gallbladder and extrahepatic biliary system. Normal spleen. Normal pancreas. Normal bilateral adrenal glands. No acute findings of the right kidney. No acute findings of the left kidney. Normal visualized stomach. Normal small intestine. Oral contrast visualized in the cecum and proximal ascending colon. There is non-visualization of the appendix. There are no acute findings of the abdominal aorta. Normal inferior vena cava. Subcentimeter mesenteric lymph nodes. Normal urinary bladder. Normal visualized uterus. There is free fluid in the pelvis. This can be physiologic. There is an umbilical hernia containing fat. Normal osseous structures. IMPRESSION: (NOT LISTED IN ORDER OF SIGNIFICANCE) There is free fluid in the pelvis. This can be physiologic. Oral contrast visualized in the cecum and proximal ascending colon. Other findings as above. Electronically Signed: Avery Cao MD at 17:25 [facility] , CT/Abdomen/Pel W ORAL Cont Only
[2021-06-23] MEDS: Morphine 2 MG/ML Syringe IV ×2 (16:17→22:23)
[2021-06-23] MEDS: 0.9% Saline Lock 10 ML Syringe IV (16:17)
--- NOTE | 2021-06-23 19:06 | CON.PCM.GI_ITS ---
HPI Consult Data Date of Consult: 06/23/21 HPI Narrative HPI Narrative: CARMEN RUTLEDGE, is a 25 F who presents with a past medical history of severe IBS. She underwent a colonoscopy last year and was discovered to have a precancerous polyp. She came for evaluation as an outpatient due to worsening abdominal pain and diarrhea. Stool studies not show any signs of infection. She had imaging did not show any acute abnormalities in her abdomen. She also complained of weight loss and weakness. 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 She went with biopsies of the esophagus stomach and duodenum. The duodenum looked normal. She underwent a colonoscopy discovered to have a flat polyp in the ascending colon which was removed. She also had random biopsies of her colon and terminal ileum. And those are pending. She was in normal state of health yesterday without any problems. She woke up early this morning with excruciating abdominal pain. When she got to the ED for evaluation she discovered to have a mildly elevated white blood cell count at 13.4 and mildly elevated LFTs. Should not drink any alcohol or take any medicines yesterday. She got a CT scan abdomen pelvis that showed some possible fluid around the quita hepatis along with possibly cholecystitis. She has been seen by surgery in consultation. She also had some thickening in the colon possibly secondary to colitis in the ascending colon. She got to repeat CT scans that showed old improvement of the previous findings on the initial CAT scan. She still complaining of a lot of abdominal pain. [facility] Medical History Anxiety Asthma Depression Heartburn Irritable bowel syndrome (IBS) Migraine headache Non-smoker Ovarian cyst Syncope Wears glasses Home Medications cetirizine 10 mg capsule 10 mg PO DAILY 10/07/19 [History Last Taken 06/21/21] cholecalciferol (vitamin D3) [Vitamin D3] 50 mcg PO DAILY 05/06/21 [History Last Taken 06/18/21] multivitamin 1 cap PO DAILY 05/06/21 [History Last Taken 06/18/21] ascorbic acid (vitamin C) [Vitamin C] 500 mg PO DAILY 06/18/21 [History Last Taken 06/18/21] citalopram [Celexa] 20 mg PO DAILY 06/18/21 [History Last Taken 06/22/21] lactobacillus combination no.4 [Probiotic] 3,000 mmu cells PO DAILY 06/18/21 [History Last Taken 06/18/21] magnesium 250 mg PO DAILY 06/18/21 [History Last Taken 06/18/21] zinc 50 mg PO DAILY 06/18/21 [History Last Taken 06/18/21] ibuprofen 400 mg PO Q8H PRN 06/23/21 [History Last Taken 06/21/21] lubiprostone [Amitiza] 8 mcg PO DAILY 06/23/21 [History Last Taken 06/19/21] Allergy/AdvReac Type Severity Reaction Status Date / Time gluten Allergy GI upset Verified 06/23/21 14:27 milk Allergy GI upset Verified 06/23/21 14:27 TEA TREE OIL Allergy HIVES Uncoded 06/23/21 07:48 Family History no significant family his Surgical History History of carpal tunnel release Hx of colonoscopy with polypectomy Hx of exploratory laparotomy [place] teeth extracted Social History Smoking Status: Never smoker alcohol intake: never ROS Gastrointestinal Gastrointestinal: Reports abdominal pain Physical Exam Const alert General Appearance: cooperative Orientation / Consciousness: oriented to person HEENT hearing grossly normal bilaterally Head and Scalp: normal to inspection Face and Sinus: face symmetric Nose: external nose normal Mouth: oral and palatal mucosa normal Eyes conjunctivae normal General Eye: normal appearance of both eyes Neck full ROM General: normal visual inspection Lymph Lymphatic: no lymphadenopathy noted Chest inspection of chest normal and palpation of chest normal Chest: symmetrical chest wall rise Resp normal respiratory effort Effort and Inspection: able to speak in complete sentences Cardio regular rate GI non-distended Percussion: normal to percussion Rectal Exam: deferred Neuro Speech: speech normal Gait (Neuro): normal gait Lab / Micro Data Result Diagrams: 06/23/21 08:10 06/23/21 08:10 Labs: Laboratory Results - last 24 hr 06/23/21 08:10: WBC 13.8 H, RBC 4.39, Hgb 13.7, Hct 39.4, MCV 89.7, MCH 31.2, MCHC 34.8, RDW Std Deviation 41.6, RDW Coeff of Katya 12.6, Plt Count 168, MPV 10.4, Immature Gran % (Auto) 0.300, Neut % (Auto) 80.9 H, Lymph % (Auto) 10.4 L, [place] % (Auto) 7.2, Eos % (Auto) 1.0, Baso % (Auto) 0.2, Absolute Neuts (auto) 11.1 H, Absolute Lymphs (auto) 1.43, Nucleated RBC % 0 06/23/21 08:10: Sodium 140, Potassium 3.1 L, Chloride 102, Carbon Dioxide 30.0, Anion Gap 8, BUN 12, Creatinine 0.66, Estim Creat Clear Calc 107.79, Est GFR (MDRD) Af Amer 140, Est GFR (MDRD) Non-Af 116, BUN/Creatinine Ratio 18.2, Glucose 133 H, Calcium 8.8, Total Bilirubin 1.10 H, AST 58 H, ALT 55, Alkaline Phosphatase 63, Total Protein 7.1, Albumin 4.1, Globulin 3.0, Albumin/Globulin Ratio 1.4, Lipase 116 Radiology Impression Abdomen/Pelvis CT 06/23/21 08:45 IMPRESSION: Edematous changes of the portal triads suggestive of the possible hepatitis. Contracted gallbladder. Small amount of pericholecystic fluid. Findings suggestive of a colitis of the right hemicolon. Dominant follicle in the right ovary. Small amount of free fluid in the pelvis. There is prominence of the left gonadal vein. Electronically Signed: Amarjit Garcia MD at 9:08 EST , Abdomen CT 06/23/21 10:31 IMPRESSION: There has been no change as compared to prior study done earlier in the day. Electronically Signed: Amarjit Garcia MD at 12:36 EST , Abdomen CT 06/23/21 16:11 Assessment & Plan Assessment/Plan (1) Diffuse abdominal pain: PLAN: The differential diagnosis for abdominal pain would be exacerbation of her IBS. Intestinal angina causing mild ischemia in the right side of the colon secondary to dehydration from colonoscopy. She has been seen by surgery. Recommend continue IV fluids, repeat LFTs, CBC, CRP and ESR this evening. She is not very tender on exam, which is a good sign. She may need an ultrasound and a HIDA scan. But I will leave that up to general surgery. Charges/Coding Visit Charges Inpatient E&M: 09974 Init Hosp L2
[2021-06-23] MEDS: 0.9% Normal Saline 1,000 ML 100 ML IV (19:35)
[2021-06-23 19:41] VITALS: BP 110/73; PULSE 72; RESP 12; TEMP 36.8; O2SAT 97
[2021-06-23 20:07] LABS: Absolute Lymphocyte Count 1.19 X10^3/uL (0.83-4.51); Absolute Neutrophil Count 6.3 X10^3/uL (2.0-7.7); Basophil# 0.04 X10^3/uL; Basophil% 0.5 % (0-1); Eosinophil# 0.07 X10^3/uL; Eosinophils% 0.8 % (0-5); Hematocrit 38.2 % (37-47); Hemoglobin 13.7 g/dL (12.0-15.0); Lymphocyte # 1.19 X10^3/ul (0.83-4.51); Lymphocyte % 14.4 % (19-41); Mean Corp Hgb Conc 35.9 g/dL (32-36); Mean Corpuscular Hgb 32.1 pg (27.0-32.0); Mean Corpuscular Volume 89.5 fL (81-99); Mean Platelet Vol. 10.6 fl (6.2-12.0); Monocyte# 0.67 X10^3/uL; Monocyte% 8.1 % (0-10); NRBC Flagged by Analyzer 0 % (0-5); Neutrophil # 6.28 X10^3/uL (2.7-7.7); Neutrophil % 75.8 % (47-70); Platelet Count 171 K/mm3 (150-450); RBC Distribution Width CV 12.7 % (11.6-14.6); RBC Distribution Width SD 41.6 fl (35.1-43.9); Red Blood Count 4.27 M/mm3 (4.2-5.4); White Blood Count 8.3 K/mm3 (4.4-11.0)
[2021-06-23 20:20] LABS: Erythrocyte Sedimentation Rate < 1 mm/hr (0-30)
[2021-06-23 20:41] LABS: ALB/GLOB Ratio 1.4 RATIO (0.9-2.4); AST(SGOT) 709 U/L (15-37); Alanine Aminotransfer ALT/SGPT 1036 U/L (13-56); Albumin, Serum 3.7 g/dL (3.2-5.0); Alkaline Phosphatase 83 U/L (45-117); Anion Gap 6 (5-15); BUN 5 mg/dL (7-18); BUN/Creat Ratio 10.1 RATIO (10-20); Calcium,Total 8.3 mg/dL (8.5-10.1); Chloride 107 mmol/L (98-107); EST Glomerular Filtration Rate 160 mL/min (>60); Est Glom Filt Rate - Afr Amer 193 mL/min (>60); Estimated Creatinine Clearance 142.28 ml/min; Globulin 2.6 g/dL (2.2-4.2); Glucose 85 mg/dL (74-106); Potassium 3.4 mmol/L (3.5-5.1); Protein, Total 6.3 g/dL (6.4-8.2); Sodium Level 139 mmol/L (136-145)
[2021-06-23 20:46] LABS: Lactic Acid 0.7 mmol/L (0.4-1.9)
[2021-06-23] MEDS: Potassium Chloride 10mEq/100mL 10 MEQ/100 ML IV.SOLN. 100 MEQ IV BOLUS ×2 (20:50→22:24)
[2021-06-24 02:00] VITALS: BP 102/63; PULSE 87; RESP 14; TEMP 36.8; O2SAT 97
[2021-06-24] MEDS: 0.9% Normal Saline 1,000 ML 100 ML IV ×2 (05:40→17:01)
[2021-06-24] MEDS: Ondansetron 4 MG/2 ML Vial IV (05:40)
[2021-06-24 06:47] LABS: Absolute Lymphocyte Count 1.27 X10^3/uL (0.83-4.51); Absolute Neutrophil Count 5.2 X10^3/uL (2.0-7.7); Basophil# 0.04 X10^3/uL; Basophil% 0.6 % (0-1); Eosinophil# 0.18 X10^3/uL; Eosinophils% 2.5 % (0-5); Hematocrit 35.6 % (37-47); Hemoglobin 12.1 g/dL (12.0-15.0); Lymphocyte # 1.27 X10^3/ul (0.83-4.51); Lymphocyte % 17.8 % (19-41); Mean Corpuscular Hgb 30.7 pg (27.0-32.0); Mean Corpuscular Volume 90.4 fL (81-99); Mean Platelet Vol. 11.2 fl (6.2-12.0); Monocyte# 0.45 X10^3/uL; Monocyte% 6.3 % (0-10); NRBC Flagged by Analyzer 0 % (0-5); Neutrophil # 5.19 X10^3/uL (2.7-7.7); Neutrophil % 72.7 % (47-70); Platelet Count 158 K/mm3 (150-450); RBC Distribution Width SD 42.7 fl (35.1-43.9); Red Blood Count 3.94 M/mm3 (4.2-5.4); White Blood Count 7.1 K/mm3 (4.4-11.0)
--- NOTE | 2021-06-24 06:50 | US_ITS ---
STUDY: ABDOMINAL ULTRASOUND - RIGHT UPPER QUADRANT REASON FOR VISIT: Female, 25 years old RUQ pain TECHNIQUE: Ultrasound evaluation of the right upper quadrant was performed with real-time and static lindsey-scale imaging. TECHNICAL QUALITY: Adequate. COMPARISON: None. FINDINGS: Liver: The liver measures 12.2 cm. There is normal echogenicity of the liver. The bile ducts are within normal limits. There is hepatic color flow. The direction of portal flow is hepatopetal. There is no demonstrated mass lesion. Gallbladder: Normal distended gallbladder. The gallbladder wall measures 2 mm. There is a negative sonographic [place]''s sign. There is no pericholecystic fluid. There are no gallstones. Common Bile Duct (C.B.D.): The common bile duct measures 2.3 mm. Pancreas: Normal size of the head, body and tail of the pancreas. There is normal echogenicity of the pancreas. There is no demonstrated pancreatic mass or cyst. Right Kidney: Normal size of the right kidney. The right kidney measures 11.2 cm x 4.6 cm x 3.8 cm. Normal renal cortex. The right cortex measures 1.8 cm. There is no demonstrated renal mass or cyst. There is no right hydronephrosis. US/Gallbladder IMPRESSION: Normal right upper quadrant ultrasound examination. Electronically Signed: Amarjit Garcia MD at 9:52 EST ,
[2021-06-24 07:12] LABS: ALB/GLOB Ratio 1.2 RATIO (0.9-2.4); AST(SGOT) 342 U/L (15-37); Alanine Aminotransfer ALT/SGPT 772 U/L (13-56); Albumin, Serum 3.3 g/dL (3.2-5.0); Alkaline Phosphatase 74 U/L (45-117); Anion Gap 7 (5-15); BUN 5 mg/dL (7-18); Calcium,Total 7.8 mg/dL (8.5-10.1); Chloride 109 mmol/L (98-107); EST Glomerular Filtration Rate 159 mL/min (>60); Est Glom Filt Rate - Afr Amer 192 mL/min (>60); Estimated Creatinine Clearance 142.28 ml/min; Globulin 2.7 g/dL (2.2-4.2); Glucose 73 mg/dL (74-106); Potassium 3.1 mmol/L (3.5-5.1); Sodium Level 141 mmol/L (136-145)
[2021-06-24] MEDS: proCHLORPERazine 10 MG/2 ML Vial 5 MG IV (07:26)
[2021-06-24 07:32] LABS: Ferritin 214 ng/mL (8-252); LDH 254 U/L (84-246)
[2021-06-24 08:32] LABS: International Normalized Ratio 1.1; Prothrombin Time (Protime)PT. 13.9 SECONDS (11.7-14.9)
[2021-06-24] MEDS: Morphine 2 MG/ML Syringe IV (09:42)
[2021-06-24 09:47] VITALS: BP 90/59; PULSE 74; RESP 17; TEMP 36.7; O2SAT 98
--- NOTE | 2021-06-24 10:25 | CASEMGMT ---
RN CM Face to Face with patient for initial transition planning/care coordination assessment. RN CM introduced self and role at [facility]. Patient lying in bed, alert and oriented. Patient willing to participate in assessment and is able to answer all questions appropriately. Care providers, pharmacy, and demographics verified. Patient wishes to discharge home, denies need for home health at this time. Patient states she has no further needs or concerns at this time. CM to follow for discharge planning needs that may arise. PCP: Laura Specialists: Friend, JAVIER Preferred Pharmacy: [facility] retail Insurance: [place] Prescription Benefit: yes Living Will/HPOA: no, patient would like to complete. ZHANG Youssef updated LNOK: parents, friend Living Arrangements: Patient lives with roommate in a 2 story home. Patient is independent and able to ambulate stairs. Transportation: self, friend DME/HHC: Patient denies DME. No previous HHC. Disposition Plan: Patient to discharge home with family support and follow-up plans in place. Saranya PHAM, RN, CM
--- NOTE | 2021-06-24 10:41 | PN.SURG_ITS ---
Subjective Subjective Patient is still planing of right upper quadrant and left lower quadrant pain and did have some nausea and vomiting overnight. Objective Data Objective Data Vital Signs: Vital Signs Temp Pulse Resp BP Pulse Ox 98.0 F 74 17 90/59 L 98 06/24/21 09:47 06/24/21 09:47 06/24/21 09:47 06/24/21 09:47 06/24/21 09:47 Oxygen Delivery Method Room Air Weight: 115 lb 11.883 oz Body Mass Index (BMI) 20.5 Intake & Output: Intake and Output for Last 24 Hours 06/22/21 06/23/21 06/24/21 23:59 23:59 23:59 Intake Total 2358.75 / 2358.75 1050 / 1050 Output Total 100 / 100 50 / 50 Balance 2258.75 / 2258.75 1000 / 1000 Lab / Micro Data Result Diagrams: 06/24/21 05:55 06/24/21 05:55 Labs: Laboratory Results - last 24 hr 06/23/21 19:53: WBC 8.3, RBC 4.27, Hgb 13.7, Hct 38.2, MCV 89.5, MCH 32.1 H, MCHC 35.9, RDW Std Deviation 41.6, RDW Coeff of Katya 12.7, Plt Count 171, MPV 10.6, Immature Gran % (Auto) 0.400, Neut % (Auto) 75.8 H, Lymph % (Auto) 14.4 L, [place] % (Auto) 8.1, Eos % (Auto) 0.8, Baso % (Auto) 0.5, Absolute Neuts (auto) 6.3, Absolute Lymphs (auto) 1.19, Nucleated RBC % 0, ESR < 1 06/23/21 19:53: Sodium 139, Potassium 3.4 L, Chloride 107, Carbon Dioxide 26.0, Anion Gap 6, BUN 5 L, Creatinine 0.50 L, Estim Creat Clear Calc 142.28, Est GFR (MDRD) Af Amer 193, Est GFR (MDRD) Non-Af 160, BUN/Creatinine Ratio 10.1, Glucose 85, Calcium 8.3 L, Total Bilirubin 1.40 H, AST 709 H, ALT 1036 H, Alkaline Phosphatase 83, C-React Prot Ext Range 15.60 H, Total Protein 6.3 L, Albumin 3.7, Globulin 2.6, Albumin/Globulin Ratio 1.4 06/23/21 19:53: Lactic Acid 0.7 06/24/21 05:55: WBC 7.1, RBC 3.94 L, Hgb 12.1, Hct 35.6 L, MCV 90.4, MCH 30.7, MCHC 34.0 D, RDW Std Deviation 42.7, RDW Coeff of Katya 13.0, Plt Count 158, MPV 11.2, Immature Gran % (Auto) 0.100, Neut % (Auto) 72.7 H, Lymph % (Auto) 17.8 L, [place] % (Auto) 6.3, Eos % (Auto) 2.5, Baso % (Auto) 0.6, Absolute Neuts (auto) 5.2, Absolute Lymphs (auto) 1.27, Nucleated RBC % 0 06/24/21 05:55: Sodium 141, Potassium 3.1 L, Chloride 109 H, Carbon Dioxide 25.0, Anion Gap 7, BUN 5 L, Creatinine 0.50 L, Estim Creat Clear Calc 142.28, Est GFR (MDRD) Af Amer 192, Est GFR (MDRD) Non-Af 159, BUN/Creatinine Ratio 10.0, Glucose 73 L, Calcium 7.8 L, Total Bilirubin 1.30 H, AST 342 H, ALT 772 H, Alkaline Phosphatase 74, Total Protein 6.0 L, Albumin 3.3, Globulin 2.7, Album in/Globulin Ratio 1.2 06/24/21 05:55: Ferritin 214, Lactate Dehydrogenase 254 H 06/24/21 07:50: PT 13.9, INR 1.1 Radiography Diagnostic Testing: Radiology Impression Abdomen CT 06/23/21 10:31 IMPRESSION: There has been no change as compared to prior study done earlier in the day. Electronically Signed: Amarjit Garcia MD at 12:36 EST , Abdomen CT 06/23/21 16:11 Gallbladder Ultrasound 06/24/21 06:50 IMPRESSION: Normal right upper quadrant ultrasound examination. Electronically Signed: Amarjit Garcia MD at 9:52 EST , Physical Exam Const oriented x3 and no apparent distress Resp normal respiratory effort Cardio regular rate GI soft to palpation Palpation: tender RUQ Assessment & Plan Assessment/Plan (1) Diffuse abdominal pain: PLAN: The patient reports that she did have some nausea with an episode of vomiting overnight and is still having right upper quadrant and left lower quadrant pain. I ordered an ultrasound of the gallbladder which was essentially normal. There is no thickening or gallstones and her bile duct was normal size. She did have an elevation in LFTs last night which mildly decreased this morning. I am unsure as to the etiology of this either. This may be all related to the colonoscopy. The hepatitis panels are pending. At this time I do not believe surgery is warranted or indicated. Continue to observe on antibiotics and bowel rest. Ector Lindsay MD Pager: [facility] [address] [place] [address], [address] [place] [address] Office:
[2021-06-24] MEDS: Potassium Chloride 10mEq/100mL 10 MEQ/100 ML IV.SOLN. 100 MEQ IV BOLUS (10:47)
--- NOTE | 2021-06-24 11:02 | PN.HOSP_ITS ---
Subjective Subjective Follow-up on abdominal pain: Patient was seen and examined. Her abdominal pain is improved. She has been able to tolerate clears. Ultrasound of the gallbladder is unremarkable. Repeat CT scan of the abdomen pelvis is unremarkable. Objective Data Objective Data Vital Signs: Vital Signs Temp Pulse Resp BP Pulse Ox 98.0 F 74 17 90/59 L 98 06/24/21 09:47 06/24/21 09:47 06/24/21 09:47 06/24/21 09:47 06/24/21 09:47 Oxygen Delivery Method Room Air Weight: 52.5 kg Body Mass Index (BMI) 20.5 Intake & Output: Intake and Output for Last 24 Hours 06/22/21 06/23/21 06/24/21 23:59 23:59 23:59 Intake Total 2358.75 / 2358.75 1050 / 1050 Output Total 100 / 100 50 / 50 Balance 2258.75 / 2258.75 1000 / 1000 Lab / Micro Data Result Diagrams: 06/24/21 05:55 06/24/21 05:55 Labs: Laboratory Results - last 24 hr 06/23/21 19:53: WBC 8.3, RBC 4.27, Hgb 13.7, Hct 38.2, MCV 89.5, MCH 32.1 H, MCHC 35.9, RDW Std Deviation 41.6, RDW Coeff of [place] 12.7, Plt Count 171, MPV 10.6, Immature Gran % (Auto) 0.400, Neut % (Auto) 75.8 H, Lymph % (Auto) 14.4 L, [place] % (Auto) 8.1, Eos % (Auto) 0.8, Baso % (Auto) 0.5, Absolute Neuts (auto) 6.3, Absolute Lymphs (auto) 1.19, Nucleated RBC % 0, ESR < 1 06/23/21 19:53: Sodium 139, Potassium 3.4 L, Chloride 107, Carbon Dioxide 26.0, Anion Gap 6, BUN 5 L, Creatinine 0.50 L, Estim Creat Clear Calc 142.28, Est GFR (MDRD) Af Amer 193, Est GFR (MDRD) Non-Af 160, BUN/Creatinine Ratio 10.1, Glucose 85, Calcium 8.3 L, Total Bilirubin 1.40 H, AST 709 H, ALT 1036 H, Alkaline Phosphatase 83, C-React Prot Ext Range 15.60 H, Total Protein 6.3 L, Albumin 3.7, Globulin 2.6, Albumin/Globulin Ratio 1.4 06/23/21 19:53: Lactic Acid 0.7 06/24/21 05:55: WBC 7.1, RBC 3.94 L, Hgb 12.1, Hct 35.6 L, MCV 90.4, MCH 30.7, MCHC 34.0 D, RDW Std Deviation 42.7, RDW Coeff of [place] 13.0, Plt Count 158, MPV 11.2, Immature Gran % (Auto) 0.100, Neut % (Auto) 72.7 H, Lymph % (Auto) 17.8 L, [place] % (Auto) 6.3, Eos % (Auto) 2.5, Baso % (Auto) 0.6, Absolute Neuts (auto) 5.2, Absolute Lymphs (auto) 1.27, Nucleated RBC % 0 06/24/21 05:55: Sodium 141, Potassium 3.1 L, Chloride 109 H, Carbon Dioxide 25.0, Anion Gap 7, BUN 5 L, Creatinine 0.50 L, Estim Creat Clear Calc 142.28, Est GFR (MDRD) Af Amer 192, Est GFR (MDRD) Non-Af 159, BUN/Creatinine Ratio 10.0, Glucose 73 L, Calcium 7.8 L, Total Bilirubin 1.30 H, AST 342 H, ALT 772 H, Alkaline Phosphatase 74, Total Protein 6.0 L, Albumin 3.3, Globulin 2.7, Albumin/Globulin Ratio 1.2 06/24/21 05:55: Ferritin 214, Lactate Dehydrogenase 254 H 06/24/21 07:50: PT 13.9, INR 1.1 Radiography Diagnostic Testing: Radiology Impression Abdomen CT 06/23/21 10:31 IMPRESSION: There has been no change as compared to prior study done earlier in the day. Electronically Signed: Amarjit Garcia MD at 12:36 EST , Abdomen CT 06/23/21 16:11 Gallbladder Ultrasound 06/24/21 06:50 IMPRESSION: Normal right upper quadrant ultrasound examination. Electronically Signed: Amarjit Garcia MD at 9:52 EST , Physical Exam Narrative Physical exam: General: Alert, Oriented x3, Cooperative, No apparent distress, Well developed HEENT: Atraumatic Oral: Moist Mucosa Neck: Supple Lungs: Clear to auscultation Cardiovascular: HS I+II, regular, no murmurs Abdomen: Hypoactive bowel sounds present, Soft, generalized tenderness, no guarding or rebound tenderness Extremities: No edema Skin: No rashes, No breakdown Neurological: Grossly intact Psych/Mental Status: Appropriate Assessment & Plan Assessment/Plan (1) Diffuse abdominal pain: (2) Status post colonoscopy with polypectomy: (3) Colitis: PLAN: 1. Acute abdominal pain unclear etiology s/p recent colonoscopy/EGD, s/p polypectomy in the ascending colon on 06/22/[address] abd/pelvis showed edematous changes of the portal triads; colitis of right hemicolon Repeat CT of the abdomen pelvis with contrast was unremarkable Continue IV Zosyn 2. Elevated LFTs, unclear etiology for now, hepatitis profile as well as anti- smooth muscle antibody, antimitochondrial antibody are pending LFTs elevated in less than 24 hours; mostly AST, ALT, with elevated total bilirubin. LDH is 254, ESR 15.6, INR is 1.1 Gallbladder ultrasound is unremarkable GI following; continue to trend labs Check Tylenol and salicylate levels 3. DVT PPx - low risk; SCDs Charges/Coding Visit Charges Inpatient E&M: 30894 Subs Hosp L3
[2021-06-24] MEDS: Potassium Chloride 10mEq/100mL 10 MEQ/100 ML IV.SOLN. 90 MEQ IV BOLUS (11:52)
--- NOTE | 2021-06-24 12:11 | CASEMGMT ---
Social Work SW received referral that pt would like to complete advance directives. SW met with pt and assisted in completing health care POA and Living will. Pt naming her friend, Pinky Monday as HCPOA. Copies placed on chart and original given to pt. KRYSTAL Galindo
[2021-06-24] MEDS: Ascorbic Acid 500 MG Tablet PO (13:46)
[2021-06-24] MEDS: Citalopram 20 MG Tablet PO (13:46)
[2021-06-24] MEDS: Loratadine 10 MG Tablet PO (13:47)
[2021-06-24] MEDS: Cholecalciferol (VIT D3) 25 MCG TABLET (1,000 UNITS) 50 MCG PO (13:47)
[2021-06-24 13:59] LABS: Acetaminophen (Tylenol) Level < 2.0 ug/mL (10.0-30.0); Salicylate < 1.7 mg/dL (2.8-20.0)
[2021-06-24 14:49] VITALS: BP 112/81; PULSE 64; RESP 16; TEMP 36.9; O2SAT 100
[2021-06-24] MEDS: Ibuprofen 600 MG Tablet PO ×2 (14:52→21:20)
--- NOTE | 2021-06-24 18:39 | PCM.PROGNOTE ---
Subjective Subjective She has felt a lot better. Her abdominal pain is down to a 2 out of 10. She says that she is hungry. She is tolerating a clear liquid diet. Objective Data Objective Data Vital Signs: Vital Signs Temp Pulse Resp BP Pulse Ox 98.5 F 64 16 112/81 H 100 06/24/21 14:49 06/24/21 14:49 06/24/21 14:49 06/24/21 14:49 06/24/21 14:49 Oxygen Delivery Method Room Air Weight: 115 lb 11.883 oz Body Mass Index (BMI) 20.5 Intake & Output: Intake and Output for Last 24 Hours 06/22/21 06/23/21 06/24/21 23:59 23:59 23:59 Intake Total 2358.75 / 2358.75 2300.00 / 2300.00 Output Total 100 / 100 50 / 50 Balance 2258.75 / 2258.75 2250.00 / 2250.00 Lab / Micro Data Result Diagrams: 06/24/21 05:55 06/24/21 05:55 Labs: Laboratory Results - last 24 hr 06/23/21 19:53: WBC 8.3, RBC 4.27, Hgb 13.7, Hct 38.2, MCV 89.5, MCH 32.1 H, MCHC 35.9, RDW Std Deviation 41.6, RDW Coeff of Katya 12.7, Plt Count 171, MPV 10.6, Immature Gran % (Auto) 0.400, Neut % (Auto) 75.8 H, Lymph % (Auto) 14.4 L, [place] % (Auto) 8.1, Eos % (Auto) 0.8, Baso % (Auto) 0.5, Absolute Neuts (auto) 6.3, Absolute Lymphs (auto) 1.19, Nucleated RBC % 0, ESR < 1 06/23/21 19:53: Sodium 139, Potassium 3.4 L, Chloride 107, Carbon Dioxide 26.0, Anion Gap 6, BUN 5 L, Creatinine 0.50 L, Estim Creat Clear Calc 142.28, Est GFR (MDRD) Af Amer 193, Est GFR (MDRD) Non-Af 160, BUN/Creatinine Ratio 10.1, Glucose 85, Calcium 8.3 L, Total Bilirubin 1.40 H, AST 709 H, ALT 1036 H, Alkaline Phosphatase 83, C-React Prot Ext Range 15.60 H, Total Protein 6.3 L, Albumin 3.7, Globulin 2.6, Albumin/Globulin Ratio 1.4 06/23/21 19:53: Lactic Acid 0.7 06/24/21 05:55: WBC 7.1, RBC 3.94 L, Hgb 12.1, Hct 35.6 L, MCV 90.4, MCH 30.7, MCHC 34.0 D, RDW Std Deviation 42.7, RDW Coeff of Katya 13.0, Plt Count 158, MPV 11.2, Immature Gran % (Auto) 0.100, Neut % (Auto) 72.7 H, Lymph % (Auto) 17.8 L, [place] % (Auto) 6.3, Eos % (Auto) 2.5, Baso % (Auto) 0.6, Absolute Neuts (auto) 5.2, Absolute Lymphs (auto) 1.27, Nucleated RBC % 0 06/24/21 05:55: Sodium 141, Potassium 3.1 L, Chloride 109 H, Carbon Dioxide 25.0, Anion Gap 7, BUN 5 L, Creatinine 0.50 L, Estim Creat Clear Calc 142.28, Est GFR (MDRD) Af Amer 192, Est GFR (MDRD) Non-Af 159, BUN/Creatinine Ratio 10.0, Glucose 73 L, Calcium 7.8 L, Total Bilirubin 1.30 H, AST 342 H, ALT 772 H, Alkaline Phosphatase 74, Total Protein 6.0 L, Albumin 3.3, Globulin 2.7, Albumin/Globulin Ratio 1.2 06/24/21 05:55: Ferritin 214, Lactate Dehydrogenase 254 H 06/24/21 07:50: PT 13.9, INR 1.1 06/24/21 13:00: Salicylates < 1.7 L, Acetaminophen < 2.0 L Radiography Diagnostic Testing: Radiology Impression Gallbladder Ultrasound 06/24/21 06:50 IMPRESSION: Normal right upper quadrant ultrasound examination. Electronically Signed: Amarjit Garcia MD at 9:52 EST , Physical Exam Const alert General Appearance: cooperative Orientation / Consciousness: oriented to person HEENT hearing grossly normal bilaterally Head and Scalp: normal to inspection Face and Sinus: face symmetric Nose: external nose normal Mouth: oral and palatal mucosa normal Eyes conjunctivae normal General Eye: normal appearance of both eyes Neck full ROM General: normal visual inspection Lymph Lymphatic: no lymphadenopathy noted Chest inspection of chest normal and palpation of chest normal Chest: symmetrical chest wall rise Resp normal respiratory effort Effort and Inspection: able to speak in complete sentences Cardio regular rate GI non-distended Percussion: normal to percussion Rectal Exam: deferred Neuro Speech: speech normal Gait (Neuro): normal gait Assessment & Plan Assessment/Plan (1) Diffuse abdominal pain: PLAN: I suspect that she developed an exacerbation of her IBS in a dehydrated state after undergoing a colonoscopy. As she was rehydrated her symptoms got better as did her imaging. She does not have any abdominal pain at this time. If she does have abdominal pain that returns when she starts to eat and then we can introduce scheduled dicyclomine 20 mg 3 times daily. I talked to her about staying hydrated as she already has a low blood pressure and with a history of IBS she will tend to cramp which can lead to ischemic colitis and I suspect this resulted in ischemic hepatitis. (2) Transaminitis: PLAN: Liver enzymes are improving. Likely she developed ischemic hepatitis secondary to low flow state. Charges/Coding Visit Charges Inpatient E&M: 00331 Subs Hosp L2
[2021-06-24 21:17] VITALS: BP 106/73; PULSE 66; RESP 18; TEMP 36.5; O2SAT 99
[2021-06-25] MEDS: 0.9% Normal Saline 1,000 ML 100 ML IV (03:01)
[2021-06-25 03:03] VITALS: BP 105/73; PULSE 63; RESP 18; TEMP 36.6; O2SAT 98
[2021-06-25 04:07] LABS: HEPATITIS B SURFACE AG Negative (Negative); Hepatitis A IgM Antibody Negative (Negative); Hepatitis B Core AB IgM Negative (Negative)
[2021-06-25 05:57] LABS: Absolute Lymphocyte Count 1.68 X10^3/uL (0.83-4.51); Absolute Neutrophil Count 2.4 X10^3/uL (2.0-7.7); Basophil# 0.02 X10^3/uL; Basophil% 0.4 % (0-1); Eosinophil# 0.27 X10^3/uL; Eosinophils% 5.6 % (0-5); Hematocrit 33.4 % (37-47); Hemoglobin 11.5 g/dL (12.0-15.0); Lymphocyte # 1.68 X10^3/ul (0.83-4.51); Lymphocyte % 34.9 % (19-41); Mean Corp Hgb Conc 34.4 g/dL (32-36); Mean Corpuscular Hgb 30.7 pg (27.0-32.0); Mean Corpuscular Volume 89.3 fL (81-99); Monocyte# 0.41 X10^3/uL; Monocyte% 8.5 % (0-10); NRBC Flagged by Analyzer 0 % (0-5); Neutrophil # 2.42 X10^3/uL (2.7-7.7); Neutrophil % 50.4 % (47-70); Platelet Count 149 K/mm3 (150-450); RBC Distribution Width CV 13.1 % (11.6-14.6); RBC Distribution Width SD 42.7 fl (35.1-43.9); Red Blood Count 3.74 M/mm3 (4.2-5.4); White Blood Count 4.8 K/mm3 (4.4-11.0)
[2021-06-25] MEDS: Ibuprofen 600 MG Tablet PO (06:07)
[2021-06-25 06:21] LABS: ALB/GLOB Ratio 1.2 RATIO (0.9-2.4); AST(SGOT) 123 U/L (15-37); Alanine Aminotransfer ALT/SGPT 480 U/L (13-56); Albumin, Serum 3.2 g/dL (3.2-5.0); Alkaline Phosphatase 65 U/L (45-117); Anion Gap 4 (5-15); BUN 4 mg/dL (7-18); BUN/Creat Ratio 8.9 RATIO (10-20); Calcium,Total 8.2 mg/dL (8.5-10.1); Chloride 109 mmol/L (98-107); Creatinine, Serum 0.45 mg/dL (0.55-1.02); EST Glomerular Filtration Rate 180 mL/min (>60); Est Glom Filt Rate - Afr Amer 218 mL/min (>60); Estimated Creatinine Clearance 158.09 ml/min; Globulin 2.6 g/dL (2.2-4.2); Glucose 86 mg/dL (74-106); Potassium 3.5 mmol/L (3.5-5.1); Protein, Total 5.8 g/dL (6.4-8.2); Sodium Level 139 mmol/L (136-145)
[2021-06-25 08:25] VITALS: BP 108/65; PULSE 75; RESP 18; TEMP 36.6; O2SAT 98
--- NOTE | 2021-06-25 08:50 | PCM.PN.SRG ---
Subjective Subjective Patient reports she is feeling better today and tolerated some diet yesterday evening. She also has passing gas and had a bowel movement. She has not had any nausea or vomiting. Objective Data Objective Data Vital Signs: Vital Signs Temp Pulse Resp BP Pulse Ox 98 F 63 18 105/73 98 06/25/21 03:03 06/25/21 03:03 06/25/21 03:03 06/25/21 03:03 06/25/21 03:03 Oxygen Delivery Method Room Air Weight: 115 lb 11.883 oz Body Mass Index (BMI) 20.5 Intake & Output: Intake and Output for Last 24 Hours 06/23/21 06/24/21 06/25/21 23:59 23:59 23:59 Intake Total 2358.75 / 2358.75 2350.00 / 2350.00 1121.75 / 1121.75 Output Total 100 / 100 50 / 50 Balance 2258.75 / 2258.75 2300.00 / 2300.00 1121.75 / 1121.75 Lab / Micro Data Result Diagrams: 06/25/21 05:34 06/25/21 05:34 Labs: Laboratory Results - last 24 hr 06/24/21 13:00: Salicylates < 1.7 L, Acetaminophen < 2.0 L 06/25/21 05:34: WBC 4.8, RBC 3.74 L, Hgb 11.5 L, Hct 33.4 L, MCV 89.3, MCH 30.7, MCHC 34.4, RDW Std Deviation 42.7, RDW Coeff of Katya 13.1, Plt Count 149 L, MPV 11.0, Immature Gran % (Auto) 0.200, Neut % (Auto) 50.4, Lymph % (Auto) 34.9, [place] % (Auto) 8.5, Eos % (Auto) 5.6 H, Baso % (Auto) 0.4, Absolute Neuts (auto) 2.4, Absolute Lymphs (auto) 1.68, Nucleated RBC % 0 06/25/21 05:34: Sodium 139, Potassium 3.5, Chloride 109 H, Carbon Dioxide 26.0, Anion Gap 4 L, BUN 4 L, Creatinine 0.45 L, Estim Creat Clear Calc 158.09, Est GFR (MDRD) Af Amer 218, Est GFR (MDRD) Non-Af 180, BUN/Creatinine Ratio 8.9 L, Glucose 86, Calcium 8.2 L, Total Bilirubin 1.20 H, AST 123 H, ALT 480 H, Alkaline Phosphatase 65, Total Protein 5.8 L, Albumin 3.2, Globulin 2.6, Albumin/Globulin Ratio 1.2 Radiography Diagnostic Testing: Radiology Impression Gallbladder Ultrasound 06/24/21 06:50 IMPRESSION: Normal right upper quadrant ultrasound examination. Electronically Signed: Amarjit Garcia MD at 9:52 EST , Physical Exam Const oriented x3 and no apparent distress Resp normal respiratory effort GI soft to palpation Assessment & Plan Assessment/Plan (1) Diffuse abdominal pain: PLAN: Patient's abdominal pain is improving. Her LFTs are coming down. She tolerated some diet and she is okay for discharge from my standpoint. Ector Lindsay MD Pager: [facility] [address] [place] [address], [address] [place] [address] Office:
--- NOTE | 2021-06-25 09:24 | PCM.DC ---
Discharge Instructions Diet Discharge Diet: No restrictions Activity Discharge Activity: Return to Normal Activity Follow Up Care Test Results: Test results from this visit will be discussed in further detail at your follow-up appointment, if applicable. Discharge Plan Admission Admit Date/Time: 06/23/21 12:52 Primary Reason for Your Visit: Abdominal pain Attending Provider: Meghan Greene Primary Care Provider: Shemar Sanchez Consulting Providers: Ector Lindsay Instructions Additional Instructions / Restrictions: Keep yourself hydrated. Continue to take your medications as prescribed. Follow-up with GI in the outpatient in 10 days. Discharge Orders/Prescriptions Prescriptions: New hyoscyamine sulfate 0.125 mg tablet,disintegrating 0.125 mg PO DAILY PRN (Reason: dyspepsia) 20 Days Qty: 20 RF: 0 Continued Zyrtec 10 mg capsule 10 mg PO DAILY RF: 0 multivitamin Capsule 1 cap PO DAILY RF: 0 cholecalciferol (vitamin D3) [Vitamin D3] 25 mcg (1,000 unit) Capsule 50 mcg PO DAILY RF: 0 citalopram [Celexa] 20 mg Tablet 20 mg PO DAILY RF: 0 ascorbic acid (vitamin C) [Vitamin C] 500 mg Tablet 500 mg PO DAILY RF: 0 zinc 50 mg Tablet 50 mg PO DAILY RF: 0 magnesium 250 mg Tablet 250 mg PO DAILY RF: 0 Probiotic 3 billion cell Capsule 3,000 mmu cells PO DAILY RF: 0 ibuprofen 800 mg tablet 400 mg PO Q8H PRN (Reason: pain) RF: 0 lubiprostone [Amitiza] 8 mcg capsule 8 mcg PO DAILY RF: 0 Referrals / Follow Up: Shemar Sanchez DO [Primary Care Provider] - Within 2 Weeks FriendDick DO [STAFF PHYSICIAN] - See Referral Note (in 10 days) Disposition Disposition (needs filled in before D/C Order can be placed): Home, Self Care
--- NOTE | 2021-06-25 09:28 | DS.PCM_ITS ---
Providers Date of Admission: 06/23/21 Date of Discharge: 06/25/21 Primary Care Physician: Dr. Shemar Sanchez, Consultations 06/23/21 14:05 Consult: Gastroenterology Routine Consulting Provider: [facility] Reason for Consult: Abd pain, colitis EMERGENT Consult: No Notified: Yes Date Notified: 06/23/21 Time Notified: 12:56 Method of Notification: Verbal Comments:: Notified by ED Consult: General Surgery Routine Consulting Provider: Ector Lindsay Reason for Consult: Abd pain, colitis EMERGENT Consult: No Notified: Yes Date Notified: 06/23/21 Time Notified: 12:55 Method of Notification: Verbal Reason For Visit: ABD PAIN Diagnosis Discharge Diagnosis (1) Diffuse abdominal pain: Status: Acute Code(s): R10.84 - Generalized abdominal pain Medications at Discharge Home Medications cetirizine 10 mg capsule 10 mg PO DAILY 10/07/19 cholecalciferol (vitamin D3) [Vitamin D3] 50 mcg PO DAILY 05/06/21 multivitamin 1 cap PO DAILY 05/06/21 Probiotic 3,000 mmu cells PO DAILY 06/18/21 ascorbic acid (vitamin C) [Vitamin C] 500 mg PO DAILY 06/18/21 citalopram [Celexa] 20 mg PO DAILY 06/18/21 magnesium 250 mg PO DAILY 06/18/21 zinc 50 mg PO DAILY 06/18/21 ibuprofen 400 mg PO Q8H PRN 06/23/21 lubiprostone [Amitiza] 8 mcg PO DAILY 06/23/21 hyoscyamine sulfate 0.125 mg PO DAILY PRN 20 Days #20 tab 06/25/21 Hospital Course Operations None Procedures None Summary of Care Provided Minutes Spent on Discharge: 40 Hospital Course: 25 y/o female with past medical history of IBS, chronic diarrhea status post colonoscopy on 06/22/21 with removal of polyp. Patient presented on 06/23/21 with severe abdominal discomfort, associated with nausea and vomiting. CT of abdomen and pelvis showed edematous changes of the portal triad signs of possible hepatitis. Contracted gallbladder, colitis of the right hemicolon. Patient was admitted to the MedSur floor and managed as acute colitis. GI and general surgery were consulted. Repeat CT of the abdomen and pelvis was unchanged. Patient developed elevated LFTs the next day believed to be seco ndary to ischemic hepatitis from transient hypotension. She had ultrasound of the gallbladder done that was unremarkable. She was managed conservatively with improvement in her LFTs. Patient continued to be asymptomatic. She was discharged to follow-up with GI in the outpatient in 10 days. She was also discharged on hyoscyamine prn. She will follow-up with her primary care doctor in 2 weeks Physical Exam Narrative Physical exam: General: Alert, Oriented x3, Cooperative, No apparent distress, Well developed HEENT: Atraumatic Oral: Moist Mucosa Neck: Supple Lungs: Clear to auscultation Cardiovascular: HS I+II, regular, no murmurs Abdomen: Hypoactive bowel sounds present, soft, generalized tenderness, no guarding or rebound tenderness Extremities: No edema Skin: No rashes, No breakdown Neurological: Grossly intact Psych/Mental Status: Appropriate Weight / BMI Weight Weight: 52.5 kg Body Mass Index (BMI) 20.5 ABG / Lab / Microbiology Data Result Diagrams: 06/25/21 05:34 06/25/21 05:34 Laboratory: Laboratory Results - last 24 hr 06/24/21 13:00: Salicylates < 1.7 L, Acetaminophen < 2.0 L 06/25/21 05:34: WBC 4.8, RBC 3.74 L, Hgb 11.5 L, Hct 33.4 L, MCV 89.3, MCH 30.7, MCHC 34.4, RDW Std Deviation 42.7, RDW Coeff of Katya 13.1, Plt Count 149 L, MPV 11.0, Immature Gran % (Auto) 0.200, Neut % (Auto) 50.4, Lymph % (Auto) 34.9, [place] % (Auto) 8.5, Eos % (Auto) 5.6 H, Baso % (Auto) 0.4, Absolute Neuts (auto) 2.4, Absolute Lymphs (auto) 1.68, Nucleated RBC % 0 06/25/21 05:34: Sodium 139, Potassium 3.5, Chloride 109 H, Carbon Dioxide 26.0, Anion Gap 4 L, BUN 4 L, Creatinine 0.45 L, Estim Creat Clear Calc 158.09, Est GFR (MDRD) Af Amer 218, Est GFR (MDRD) Non-Af 180, BUN/Creatinine Ratio 8.9 L, Glucose 86, Calcium 8.2 L, Total Bilirubin 1.20 H, AST 123 H, ALT 480 H, Alkaline Phosphatase 65, Total Protein 5.8 L, Albumin 3.2, Globulin 2.6, Albumin/Globulin Ratio 1.2 Radiography Diagnostic Testing: Radiology Impression Gallbladder Ultrasound 06/24/21 06:50 IMPRESSION: Normal right upper quadrant ultrasound examination. Electronically Signed: Amarjit Garcia MD at 9:52 EST , D/C Instructions Discharge Diet: No restrictions Meaningful Use Info Meaningful Use Diagnoses (Choose all that apply): None applicable Discharge Plan Admission Admit Date/Time: 06/23/21 12:52 Primary Reason for Your Visit: Abdominal pain Attending Provider: Meghan Greene Primary Care Provider: Shemar Sanchez Consulting Providers: Ector Lindsay Instructions Additional Instructions / Restrictions: Keep yourself hydrated. Continue to take your medications as prescribed. Follow-up with GI in the outpatient in 10 days. Discharge Orders/Prescriptions Prescriptions: New hyoscyamine sulfate 0.125 mg tablet,disintegrating 0.125 mg PO DAILY PRN (Reason: dyspepsia) 20 Days Qty: 20 RF: 0 Continued Zyrtec 10 mg capsule 10 mg PO DAILY RF: 0 multivitamin Capsule 1 cap PO DAILY RF: 0 cholecalciferol (vitamin D3) [Vitamin D3] 25 mcg (1,000 unit) Capsule 50 mcg PO DAILY RF: 0 citalopram [Celexa] 20 mg Tablet 20 mg PO DAILY RF: 0 ascorbic acid (vitamin C) [Vitamin C] 500 mg Tablet 500 mg PO DAILY RF: 0 zinc 50 mg Tablet 50 mg PO DAILY RF: 0 magnesium 250 mg Tablet 250 mg PO DAILY RF: 0 Probiotic 3 billion cell Capsule 3,000 mmu cells PO DAILY RF: 0 ibuprofen 800 mg tablet 400 mg PO Q8H PRN (Reason: pain) RF: 0 lubiprostone [Amitiza] 8 mcg capsule 8 mcg PO DAILY RF: 0 Referrals / Follow Up: Shemar Sanchez DO [Primary Care Provider] - Within 2 Weeks FriendDick DO [STAFF PHYSICIAN] - See Referral Note (in 10 days) Disposition Disposition (needs filled in before D/C Order can be placed): Home, Self Care Charges/Coding Visit Charges Inpatient E&M: 19365 Disch Hosp
[2021-06-25] MEDS: Ensure Clear 120 ML Liquid PO (10:27)
[2021-06-25] MEDS: Multivitamins,Therapeutic Tablet 1 TABLET PO (10:28)
[2021-06-25] MEDS: Loratadine 10 MG Tablet PO (10:28)
[2021-06-25] MEDS: Ascorbic Acid 500 MG Tablet PO (10:28)
[2021-06-25] MEDS: Citalopram 20 MG Tablet PO (10:28)
[2021-06-25] MEDS: Cholecalciferol (VIT D3) 25 MCG TABLET (1,000 UNITS) 50 MCG PO (10:28)
[2021-06-25 10:43] VITALS: BP 103/72; PULSE 77; RESP 16; TEMP 36.7; O2SAT 100
[2021-06-25 15:22] LABS: Hep C Antibodies <0.1 s/co ratio (0.0-0.9)
[2021-06-25 18:54] LABS: Anti-Mitochondrial AB <20.0 Units (0.0-20.0); Anti-Smooth Muscle ABS 2 Units (0-19)
== END 2021-06-25 11:00 | disposition home or self-care (01) | DRG 442 ==
LOC: ED 10:07 → MS3 06-24 08:47
PROVIDERS: Internal Medicine Gastroenterology; Admitting Provider Internal Medicine; Emergency Provider Emergency Medicine; PCP Student in an Organized Health Care Education/Training Program; Visit Provider Internal Medicine
DX: K72.00 Acute and subacute hepatic failure without coma (principal); K55.9 Vascular disorder of intestine, unspecified; K75.9 Inflammatory liver disease, unspecified; K52.9 Noninfective gastroenteritis and colitis, unspecified; K63.5 Polyp of colon; K58.0 Irritable bowel syndrome with diarrhea; F41.9 Anxiety disorder, unspecified; J45.909 Unspecified asthma, uncomplicated; F32.A Depression, unspecified; Z79.899 Other long term (current) drug therapy; R74.01 Elevation of levels of liver transaminase levels
CPT/HCPCS: 36415; 74176; 74177; 76705; 80053; 80074; 80329; 82728; 83516; 83605; 83615; 83690; 85025; 85610; 85652; 86140; 97802; 99284; J7030; J7050; Q9967; A4216; G0480; J2405

== ENCOUNTER 2021-06-30 08:37 | Outpatient (CLI) | payer BC, SELFPAY ==
[2021-06-30 09:31] LABS: Glucose 75GTT - Fasting 84 mg/dL (70-99)
[2021-06-30 09:38] LABS: Insulin 75GTT - Fasting 5.8 mU/L (2.6-37.6)
[2021-06-30 10:55] LABS: Insulin 75GTT - 30 MIN 134.1 mU/L (Not Estab.)
[2021-06-30 10:55] LABS: Insulin 75GTT - 60 min 122.2 mU/L (Not Estab)
[2021-06-30 11:01] LABS: Glucose 75GTT - 60 minutes 86 mg/dL (100-160)
[2021-06-30 11:01] LABS: Glucose 75GTT - 30 minutes 109 mg/dL (100-160)
[2021-06-30 12:50] LABS: Glucose 75GTT - 120 minutes 69 mg/dL (70-140)
[2021-06-30 12:56] LABS: Insulin 75GTT - 120 min 78.2 mU/L (Not Estab.)
[2021-07-08 08:24] LABS: Anti-Mullerian Hormone,Serum 12.2 ng/mL (.)
== END 2021-06-30 23:59 | disposition home or self-care (01) ==
LOC: WOBLAB 08:38
PROVIDERS: PCP Student in an Organized Health Care Education/Training Program; Visit Provider Obstetrics & Gynecology
DX: E28.1 Androgen excess (principal)
CPT/HCPCS: 36415; 82951; 82952; 83516; 83525

== ENCOUNTER 2021-07-02 14:57 | Outpatient (CLI) | payer BC, SELFPAY ==
[2021-07-02 15:28] LABS: Absolute Lymphocyte Count 2.21 X10^3/uL (0.83-4.51); Absolute Neutrophil Count 4.8 X10^3/uL (2.0-7.7); Basophil# 0.05 X10^3/uL; Basophil% 0.6 % (0-1); Eosinophil# 0.16 X10^3/uL; Hematocrit 41.1 % (37-47); Hemoglobin 14.2 g/dL (12.0-15.0); Lymphocyte # 2.21 X10^3/ul (0.83-4.51); Lymphocyte % 28.2 % (19-41); Mean Corp Hgb Conc 34.5 g/dL (32-36); Mean Corpuscular Hgb 31.4 pg (27.0-32.0); Mean Corpuscular Volume 90.9 fL (81-99); Mean Platelet Vol. 10.8 fl (6.2-12.0); Monocyte# 0.59 X10^3/uL; Monocyte% 7.5 % (0-10); NRBC Flagged by Analyzer 0 % (0-5); Neutrophil # 4.81 X10^3/uL (2.7-7.7); Neutrophil % 61.4 % (47-70); Platelet Count 235 K/mm3 (150-450); RBC Distribution Width CV 13.1 % (11.6-14.6); RBC Distribution Width SD 43.1 fl (35.1-43.9); Red Blood Count 4.52 M/mm3 (4.2-5.4); White Blood Count 7.8 K/mm3 (4.4-11.0)
[2021-07-02 16:04] LABS: ALB/GLOB Ratio 1.4 RATIO (0.9-2.4); AST(SGOT) 17 U/L (15-37); Alanine Aminotransfer ALT/SGPT 102 U/L (13-56); Albumin, Serum 4.6 g/dL (3.2-5.0); Alkaline Phosphatase 77 U/L (45-117); Anion Gap 5 (5-15); BUN 17 mg/dL (7-18); Bilirubin, Direct 0.18 mg/dL (0.00-0.30); Calcium,Total 9.5 mg/dL (8.5-10.1); Chloride 103 mmol/L (98-107); Creatinine, Serum 0.68 mg/dL (0.55-1.02); EST Glomerular Filtration Rate 111 mL/min (>60); Est Glom Filt Rate - Afr Amer 134 mL/min (>60); Globulin 3.2 g/dL (2.2-4.2); Glucose 94 mg/dL (74-106); Potassium 3.7 mmol/L (3.5-5.1); Protein, Total 7.8 g/dL (6.4-8.2); Sodium Level 136 mmol/L (136-145)
== END 2021-07-02 23:59 | disposition home or self-care (01) ==
LOC: LAB 14:58
PROVIDERS: PCP Student in an Organized Health Care Education/Training Program; Referring Provider Nurse Practitioner Adult Health; Visit Provider Nurse Practitioner Adult Health
DX: R74.01 Elevation of levels of liver transaminase levels (principal); K72.00 Acute and subacute hepatic failure without coma
CPT/HCPCS: 36415; 80053; 82248; 85025; 85610

== ENCOUNTER 2023-07-06 07:59 | Emergency (ER) | payer OTHER, SELFPAY ==
[2023-07-06 08:00] VITALS: BP 114/72; PULSE 99; RESP 14; TEMP 36.3; O2SAT 97; BMI 24.6
--- NOTE | 2023-07-06 08:05 | EDS_ITS ---
HPI HPI - GI History of Present Illness Chief Complaint: Abd Pain Informant: patient Abdominal Pain/Flank Pain Onset: Yesterday Context: Sudden Onset Timing: Continuous Quality: Aching, Cramping and Sharp Location: Diffuse Worsened by: Food Relieved by: Nothing Nausea/Vomiting/Emesis GI Symptom: Positive for Nausea and Vomiting Quality: Positive for Nonbilious; Negative for Blood streaks, Coffee ground or Hematemesis Diarrhea/Melena/Hematochezia GI Symptom: Positive for Diarrhea; Negative for Melena or Hematochezia Associated Symptoms Associated Symptoms: Negative for Dysuria, Frequency or Hematuria LMP: 1 week ago Narrative Narrative: Patient presents with abdominal pain that began yesterday. Patient states it began rather suddenly. Patient states it has been constant. Patient describes it as cramping, aching, and sharp. Patient states her pain is diffuse across her entire abdomen. Patient states it is worse with trying to eat or drink anything. Patient states nothing seems to help with it. Patient admits to some nausea and vomiting. Patient denies any hematemesis or coffee-ground emesis. Patient admits to some diarrhea but denies any melena or hematochezia. Patient denies any dysuria, frequency, or hematuria. Patient states her last menstrual period was approximately 1 week ago. [facility] Medical History Anxiety Asthma Depression Heartburn Irritable bowel syndrome with constipation Migraine headache Non-smoker Ovarian cyst Pyloric ulcer Syncope Wears glasses Home Medications cetirizine 10 mg capsule (Zyrtec) 10 mg PO DAILY allergies 10/07/19 [History Last Taken 06/21/21] cholecalciferol (vitamin D3) 25 mcg (1,000 unit) capsule (Vitamin D3) 50 mcg PO DAILY supplement 05/06/21 [History Last Taken 06/18/21] multivitamin 1 cap PO DAILY supplement 05/06/21 [History Last Taken 06/18/21] lactobacillus combination no.4 3 billion cell capsule (Probiotic) 3,000 mmu cells PO DAILY probiotic 06/18/21 [History Last Taken 06/18/21] magnesium 250 mg tablet 250 mg PO DAILY supplement 06/18/21 [History Last Taken 06/18/21] ibuprofen 800 mg tablet 400 mg PO Q8H PRN pain 06/23/21 [History Last Taken 06/21/21] dicyclomine 10 mg capsule 10 mg PO ONCE #90 caps 07/02/21 [Rx Last Taken Unknown] citalopram 40 mg tablet 40 mg PO DAILY 10/14/21 [History Last Taken Unknown] pantoprazole 40 mg tablet,delayed release 40 mg PO QAM #90 tabs 08/03/22 [Rx Last Taken Unknown] lubiprostone 24 mcg capsule (Amitiza) 24 mcg PO DAILY #30 caps 06/15/23 [Rx Last Taken Unknown] ondansetron 4 mg disintegrating tablet 4 mg PO Q8H PRN PRN Nausea #10 tabs 07/06/23 [Rx Last Taken Unknown] Allergy/AdvReac Type Severity Reaction Status Date / Time gluten Allergy GI upset Verified 07/06/23 08:00 milk Allergy GI upset Verified 07/06/23 08:00 tea tree Allergy Hives Verified 07/06/23 08:00 Surgical History History of carpal tunnel release Hx of colonoscopy with polypectomy Hx of exploratory laparotomy [place] teeth extracted Social History Smoking Status: Never smoker alcohol intake: never ROS ROS ED Constitutional Constitutional ED: Reports chills and subjective; Denies fever(s) Eyes Eyes: Denies blurry vision or change in vision ENT ENT ED: Reports sore throat; Denies rhinorrhea Cardiovascular Cardiovascular: Denies chest pain or palpitations Respiratory/Chest Respiratory/Chest: Reports dyspnea; Denies cough Gastrointestinal Gastrointestinal: Reports abdominal pain, diarrhea, nausea and vomiting; Denies melena Genitourinary Genitourinary ED: Denies dysuria or hematuria Musculoskeletal Musculoskeletal: Reports neck pain; Denies back pain Integumentary Denies abscess or rash Neurologic Neurologic: Reports headache(s) and weakness Allergic/Immunologic Allergic/Immunologic ED: Denies mouth swelling or urticaria EXAM Physical Exam Const Vital Signs: 07/06/23 08:00 07/06/23 10:00 Temperature 97.3 F L Temperature Source Temporal Pulse Rate 99 64 Respiratory Rate 14 16 Blood Pressure 114/72 110/88 H Blood Pressure Mean 86 95 Pulse Ox 97 99 Oxygen Delivery Method Room Air Room Air Positive well nourished and well developed General Appearance ED: well developed and NAD HEENT Reports moist mucous membranes Neck supple and no JVD Resp normal respiratory effort and clear to auscultation bilaterally Cardio regular rate and regular rhythm GI non-distended Palpation: soft and tender LLQ, RLQ and suprapubic; Negative for guarding or rebound tenderness present Extremity full ROM Neuro CN's II-XII intact bilaterally, moves all extremities and no sensory deficits noted Sensorium / Orientation: alert Motor Exam: strength 5/5 throughout Psych mental status grossly normal MDM MDM MDM Narrative Medical decision making narrative: Differential diagnosis includes ovarian cyst, ovarian torsion, ectopic , urinary tract infection, pyelonephritis, gastroenteritis, dehydration, and exacerbation of her IBS. CBC will be obtained to assess for leukocytosis and anemia. Comprehensive metabolic profile will be obtained to assess for hepatic function, renal function, and electrolyte abnormality. Urinalysis will be obtained to assess for urinary tract infection and hematuria. Serum hCG will be obtained to assess for . Lab Data Attestation: I reviewed the patient's lab results. Lab results narrative: CBC was reviewed and was within normal limits. Comprehensive metabolic profile was reviewed and was within normal limits. Lipase was reviewed and was normal. Serum hCG was reviewed and was negative. Urinalysis was reviewed. There is no evidence of urinary tract infection or hematuria. Labs: Laboratory Results - last 24 hr 07/06/23 07/06/23 09:06 09:25 WBC 9.1 RBC 4.68 Hgb 13.6 Hct 40.8 MCV 87.2 MCH 29.1 MCHC 33.3 RDW Std Deviation 39.6 RDW Coeff of Katya 12.6 Plt Count 186 MPV 11.1 Immature Gran % (Auto) 0.300 Neut % (Auto) 93.0 H Lymph % (Auto) 2.7 L [place] % (Auto) 3.8 Eos % (Auto) 0.0 Baso % (Auto) 0.2 Absolute Neuts (auto) 8.5 H Absolute Lymphs (auto) 0.25 L Nucleated RBC % 0 Sodium 140 Potassium 3.6 Chloride 107 Carbon Dioxide 26.0 Anion Gap 7 BUN 17 Creatinine 0.71 Estim Creat Clear Calc 102.78 Est GFR (MDRD) Af Amer 126 Est GFR (MDRD) Non-Af 104 BUN/Creatinine Ratio 23.9 H Glucose 126 H Calcium 8.5 Total Bilirubin 0.90 AST 25 ALT 26 Alkaline Phosphatase 51 Total Protein 7.0 Albumin 3.7 Globulin 3.3 Albumin/Globulin Ratio 1.1 Lipase 29 Serum , Qual NEGATIVE Urine Color Yellow Urine Clarity Clear Urine pH 7.0 Ur Specific [place] 1.010 Urine Protein 30 H Urine Glucose (UA) Normal Urine Ketones 5 H Urine Occult Blood Negative Urine Nitrite Negative Urine Bilirubin 1 H Urine Urobilinogen Normal Ur Leukocyte Esterase 25 H Urine RBC 0 SEEN Urine WBC 0 SEEN Ur Squamous Epith Cells 0-5 SEEN Urine Bacteria 0 SEEN Urine Mucus 0 SEEN Treatment and Re-Evaluation :: Patient was given IV fluids, Zofran, and morphine. Patient is feeling better on reevaluation. Patient was advised of her findings. Patient was advised that this is most likely a flareup of her IBS. Patient was given a prescription for Zofran. Patient was instructed to start with a liquid diet and advance as tolerated. 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 Patient understood and was agreeable with the plan. All questions were answered. Discharge Plan Triage Chief Complaint: Abd Pain ED Provider: Mandeep Flynn Dx/Rx/DC Orders Clinical Impression: Nausea vomiting and diarrhea, Abdominal pain Instructions: ED Abdominal Pain Unkn Cause Fem, ED Irritable Bowel Syndrome Prescriptions: New ondansetron [ondansetron] 4 mg tablet,disintegrating 4 mg PO Q8H PRN PRN (Reason: Nausea) Qty: 10 0RF No Action Zyrtec 10 mg capsule 10 mg PO DAILY dicyclomine 10 mg capsule 10 mg PO ONCE Qty: 90 3RF citalopram 40 mg tablet 40 mg PO DAILY multivitamin Capsule 1 cap PO DAILY cholecalciferol (vitamin D3) [Vitamin D3] 25 mcg (1,000 unit) Capsule 50 mcg PO DAILY magnesium 250 mg Tablet 250 mg PO DAILY Probiotic 3 billion cell Capsule 3,000 mmu cells PO DAILY ibuprofen 800 mg tablet 400 mg PO Q8H PRN (Reason: pain) pantoprazole 40 mg tablet,delayed release (DR/EC) 40 mg PO QAM Qty: 90 3RF lubiprostone [Amitiza] 24 mcg capsule 24 mcg PO DAILY Qty: 30 0RF Primary Care Provider: Kirti Nieves Referrals: Shemar Sanchez DO [Non-Staff] - 5-7 Days Disposition Disposition: Home, Self Care
[2023-07-06 09:14] LABS: Absolute Lymphocyte Count 0.25 X10^3/uL (0.83-4.51); Absolute Neutrophil Count 8.5 X10^3/uL (2.0-7.7); Basophil# 0.02 X10^3/uL; Basophil% 0.2 % (0-1); Hematocrit 40.8 % (37-47); Hemoglobin 13.6 g/dL (12.0-15.0); Lymphocyte # 0.25 X10^3/ul (0.83-4.51); Lymphocyte % 2.7 % (19-41); Mean Corp Hgb Conc 33.3 g/dL (32-36); Mean Corpuscular Hgb 29.1 pg (27.0-32.0); Mean Corpuscular Volume 87.2 fL (81-99); Mean Platelet Vol. 11.1 fl (6.2-12.0); Monocyte# 0.35 X10^3/uL; Monocyte% 3.8 % (0-10); NRBC Flagged by Analyzer 0 % (0-5); Neutrophil # 8.45 X10^3/uL (2.7-7.7); POSITIVE DIFFERENTIAL YES; Platelet Count 186 K/mm3 (150-450); RBC Distribution Width CV 12.6 % (11.6-14.6); RBC Distribution Width SD 39.6 fl (35.1-43.9); Red Blood Count 4.68 M/mm3 (4.2-5.4); White Blood Count 9.1 K/mm3 (4.4-11.0)
[2023-07-06] MEDS: Ondansetron 4 MG/2 ML Vial IV (09:21)
[2023-07-06] MEDS: Morphine 4 MG/ML Syringe IV (09:21)
[2023-07-06] MEDS: 0.9% Normal Saline (1000mL) 1,000 ML 1000 ML IV (09:21)
[2023-07-06 09:24] LABS: Internal QC Validated? YES +Cl - CLEAR BKGD; Pregnancy, Serum, hCG Quali. NEGATIVE Negative
[2023-07-06 09:31] LABS: Bacteria 0 SEEN /hpf (None Seen); Mucous, Urine 0 SEEN /hpf (<or=2+); Red Blood Cells-Urine 0 SEEN /hpf (0-5); White Blood Cells 0 SEEN /hpf (0-5)
[2023-07-06 09:37] LABS: Color, Urine Yellow (Yellow); Glucose, Dipstick Normal (Normal); Ketone-Dipstick 5 mg/dl (Negative); Leukocyte Esterase-Dipstick 25 /ul (Negative); Nitrite-Dipstick Negative (Negative); Occult Blood-Urine Negative /ul (Negative); Protein-Dipstick 30 mg/dl (Negative); Urine Clarity Clear (Clear); Urine Urobilinogen Normal (Normal)
[2023-07-06 09:45] LABS: Urine Bilirubin Dipstick 1 mg/dL (Negative)
[2023-07-06 09:45] LABS: ALB/GLOB Ratio 1.1 RATIO (0.9-2.4); AST(SGOT) 25 U/L (15-37); Alanine Aminotransfer ALT/SGPT 26 U/L (13-56); Albumin, Serum 3.7 g/dL (3.2-5.0); Alkaline Phosphatase 51 U/L (45-117); Anion Gap 7 (5-15); BUN 17 mg/dL (7-18); BUN/Creat Ratio 23.9 RATIO (10-20); Calcium,Total 8.5 mg/dL (8.5-10.1); Chloride 107 mmol/L (98-107); Creatinine, Serum 0.71 mg/dL (0.55-1.02); EST Glomerular Filtration Rate 104 mL/min (>60); Est Glom Filt Rate - Afr Amer 126 mL/min (>60); Estimated Creatinine Clearance 102.78 ml/min; Globulin 3.3 g/dL (2.2-4.2); Glucose 126 mg/dL (74-106); Lipase 29 U/L (13-75); Potassium 3.6 mmol/L (3.5-5.1); Sodium Level 140 mmol/L (136-145)
[2023-07-06 09:47] LABS: Squamous Epithelial Cells - UA 0-5 SEEN /hpf (5-10)
[2023-07-06 10:00] VITALS: BP 110/88; PULSE 64; RESP 16; O2SAT 99
== END 2023-07-06 11:53 | disposition home or self-care (01) ==
PROVIDERS: Emergency Provider Emergency Medicine; PCP Nurse Practitioner Family; Visit Provider Emergency Medicine
DX: R11.2 Nausea with vomiting, unspecified (principal); R19.7 Diarrhea, unspecified; R10.9 Unspecified abdominal pain
CPT/HCPCS: 80053; 81001; 83690; 84703; 85025; 96374; 96375; 99283; J7030; A4216; J2405

== ENCOUNTER → 2024-07-12 | Outpatient (CLI) | payer OTHER, SELFPAY ==
[2024-07-12 11:02] LABS: Absolute Lymphocyte Count 1.39 X10^3/uL (0.83-4.51); Absolute Neutrophil Count 5.7 X10^3/uL (2.0-7.7); Basophil# 0.05 X10^3/uL; Basophil% 0.6 % (0-1); Eosinophil# 0.16 X10^3/uL; Hematocrit 41.9 % (37-47); Hemoglobin 14.4 g/dL (12.0-15.0); Lymphocyte # 1.39 X10^3/ul (0.83-4.51); Lymphocyte % 17.6 % (19-41); Mean Corp Hgb Conc 34.4 g/dL (32-36); Mean Corpuscular Hgb 30.3 pg (27.0-32.0); Mean Corpuscular Volume 88.2 fL (81-99); Mean Platelet Vol. 11.6 fl (6.2-12.0); Monocyte# 0.55 X10^3/uL; NRBC Flagged by Analyzer 0 % (0-5); Neutrophil # 5.73 X10^3/uL (2.7-7.7); Neutrophil % 72.4 % (47-70); Platelet Count 199 K/mm3 (150-450); RBC Distribution Width CV 12.4 % (11.6-14.6); RBC Distribution Width SD 40.5 fl (35.1-43.9); Red Blood Count 4.75 M/mm3 (4.2-5.4); White Blood Count 7.9 K/mm3 (4.4-11.0)
[2024-07-12 12:05] LABS: Hepatitis B Surface Antigen Nonreactive (Nonreactive); Hepatitis C Antibody Nonreactive (Nonreactive); Rubella IgG REAC (Nonreactive); Syphilis Antibodies Nonreactive (Nonreactive)
[2024-07-12 12:17] LABS: HIV Nonreactive (Nonreactive)
[2024-07-15 21:07] LABS: Chlamydia By Nucleic Acid AMP Negative (Negative); Gonococcus By Nucleic Acid AMP Negative (Negative)
== END | disposition home or self-care (01) ==
PROVIDERS: PCP Nurse Practitioner Family; Referring Provider Advanced Practice Midwife; Visit Provider Advanced Practice Midwife
DX: O09.90 Supervision of high risk pregnancy, unspecified, unspecified trimester (principal); Z3A.00 Weeks of gestation of pregnancy not specified
CPT/HCPCS: 36415; 84439; 84443; 85025; 86703; 86762; 86780; 86803; 86850; 86900; 86901; 87086; 87088; 87340; 87491; 87591

== ENCOUNTER → 2024-07-29 | Outpatient (CLI) | payer OTHER, SELFPAY ==
--- NOTE | 2024-07-29 08:55 | EKG12_ITS ---
Test Reason : PALPITATIONS Blood Pressure : */* mmHG Vent. Rate : 90 BPM Atrial Rate : 90 BPM P-R Int : 114 ms QRS Dur : 90 ms QT Int : 370 ms P-R-T Axes : 65 65 22 degrees QTcB Int : 452 ms Normal sinus rhythm Normal ECG Confirmed by DEBBIE CASTANEDA, ARELY ([id number]), newspaper photo editor NAVIN SCOTT ([id number]) on 07/29/2024 2:01:12 PM Referred By: Jacki Worthington Confirmed By: ARELY LEWIS MD
== END | disposition home or self-care (01) ==
LOC: PSN 08:54
PROVIDERS: PCP Nurse Practitioner Family; Referring Provider Obstetrics & Gynecology; Visit Provider Obstetrics & Gynecology
DX: R00.2 Palpitations (principal)
CPT/HCPCS: 93005

== ENCOUNTER → 2024-11-20 | Outpatient (CLI) | payer OTHER, SELFPAY ==
[2024-11-20 11:03] LABS: Hematocrit 33.6 % (37-47); Hemoglobin 11.3 g/dL (12.0-15.0); Immature Granulocytes Count 0.210 X10^3/uL (0.0-0.0); Mean Corp Hgb Conc 33.6 g/dL (32-36); Mean Corpuscular Volume 89.8 fL (81-99); Mean Platelet Vol. 12.3 fl (6.2-12.0); NRBC Flagged by Analyzer 0 % (0-5); Platelet Count 165 K/mm3 (150-450); RBC Distribution Width CV 13.2 % (11.6-14.6); RBC Distribution Width SD 43.2 fl (35.1-43.9); Red Blood Count 3.74 M/mm3 (4.2-5.4); White Blood Count 8.8 K/mm3 (4.4-11.0)
[2024-11-20 12:07] LABS: Glucose Challenge Gest 1H 50g 148 mg/dL (70-140); HIV Nonreactive (Nonreactive); Syphilis Antibodies Nonreactive (Nonreactive)
== END | disposition home or self-care (01) ==
LOC: BWCLAB 08:35
PROVIDERS: PCP Nurse Practitioner Family; Visit Provider Obstetrics & Gynecology
DX: O09.90 Supervision of high risk pregnancy, unspecified, unspecified trimester (principal); O26.899 Other specified pregnancy related conditions, unspecified trimester; Z67.91 Unspecified blood type, Rh negative; Z3A.00 Weeks of gestation of pregnancy not specified; Z13.1 Encounter for screening for diabetes mellitus
CPT/HCPCS: 36415; 82950; 85025; 86703; 86780; 86850; 86900; 86901

== ENCOUNTER → 2024-11-27 | Outpatient (CLI) | payer OTHER, SELFPAY ==
[2024-11-27 07:39] LABS: Glucose GTT-Gestation. Fasting 87 mg/dL (<105)
[2024-11-27 09:50] LABS: Glucose GTT-Gestational 1 Hr 160 mg/dL (<190)
[2024-11-27 10:42] LABS: Glucose GTT-Gestational 2 Hr 111 mg/dL (<165)
[2024-11-27 12:07] LABS: Glucose GTT-Gestational 3 Hr 123 L (<145)
== END | disposition home or self-care (01) ==
LOC: LAB 06:56
PROVIDERS: PCP Nurse Practitioner Family; Referring Provider Obstetrics & Gynecology; Visit Provider Obstetrics & Gynecology
DX: O99.810 Abnormal glucose complicating pregnancy (principal); Z3A.00 Weeks of gestation of pregnancy not specified
CPT/HCPCS: 36415; 82951; 82952

== ENCOUNTER → 2024-12-04 | Outpatient (CLI) | payer OTHER, SELFPAY | END | disposition home or self-care (01) | PROVIDERS: PCP Nurse Practitioner Family; Referring Provider Obstetrics & Gynecology; Visit Provider Obstetrics & Gynecology | DX: E06.3 Autoimmune thyroiditis (principal) | CPT/HCPCS: 36415; 84443 ==

== ENCOUNTER → 2025-01-13 | Outpatient (CLI) | payer OTHER, SELFPAY | END | disposition home or self-care (01) | LOC: LABSPEC 16:00 | PROVIDERS: PCP Nurse Practitioner Family; Referring Provider Obstetrics & Gynecology; Visit Provider Obstetrics & Gynecology | DX: O09.93 Supervision of high risk pregnancy, unspecified, third trimester (principal); Z3A.00 Weeks of gestation of pregnancy not specified | CPT/HCPCS: 87081 ==

== ENCOUNTER 2025-02-06 16:59 | Inpatient (IN) | payer OTHER, SELFPAY ==
[2025-02-06] VITALS (9 sets, daily range): BP systolic 112–159; BP diastolic 66–93; PULSE 73–83; RESP 14–17; TEMP 35.9–36.7; O2SAT 97–99; BMI 32.1
--- OUTSIDE RECORDS SUMMARY | 2025-02-06 16:44 | XMS RPT_ITS | CCD ---
Author Organization [facility] Care Team Providers Care Parole Director Name Role Phone DR FARIDEH NORTH DO Primary Care Physician [phone] DR FARIDEH NORTH DO Attending Unavailable DR FARIDEH NORTH DO Primary Care Unavailable Jimmy (Ms), Dorie Primary Care Provider Marcelino Peñaloza LABORER C[employer]SE.FABRIZIO, Eliud Primary Care Provider Jimmy (Ms), Dorie Primary Care Provider Marcelino gongora KNOBLE, ELIUD Referring Unavailable KNOBLE, ELIUD Primary Care Unavailable KNOBLE, ELIUD Referring Unavailable KNOBLE, ELIUD Primary Care Unavailable Knoble [employer].COLD ROLL CATCHER, Eliud Primary Care Provider KNOBLE, ELIUD Primary Care Unavailable KNOBLE, ELIUD Referring Unavailable KNOBLE, ELIUD Primary Care Unavailable KNOBLE, ELIUD Attending Unavailable KNOBLE, ELIUD Attending Unavailable KNOBLE, ELIUD Primary Care Unavailable KNOBLE, ELIUD Attending Unavailable KNOBLE, ELIUD Primary Care Unavailable KNOBLE, ELIUD Attending Unavailable KNOBLE, ELIUD Primary Care Unavailable KNOBLE, ELIUD Primary Care Unavailable KNOBLE, ELIUD Attending Unavailable KNOBLE, ELIUD Primary Care Unavailable KNOBLE, ELIUD Attending Unavailable KNOBLE, ELIUD Primary Care Unavailable KNOBLE, ELIUD Attending Unavailable KNOBLE, ELIUD Primary Care Unavailable KNOBLE, ELIUD Referring Unavailable KNOBLE, ELIUD Referring Unavailable KNOBLE, ELIUD Primary Care Unavailable KNOBLE, ELIUD Primary Care Unavailable KNOBLE, ELIUD Attending Unavailable KNOBLE, ELIUD Primary Care Unavailable KNOBLE, ELIUD Attending Unavailable KNOBLE, ELIUD Primary Care Unavailable KNOBLE, ELIUD Attending Unavailable Knoble CODING QUALITY ANALYST-C, Eliud Primary Care Provider Laura Jackson RN Attending Provider Unavailbeth Peñaloza CODING QUALITY ANALYST-C, Eliud Referring Provider Elan MORSE, Debra Attending Provider Elan CNM, Debra Referring Provider [phone] Ander CASTANEDA, Dr. Echeverria Attending Provider Dr. Jacki Jernigan MD Referring Provider [phone] Ny CASTANEDA, Dr. Baires Attending Provider Dr. Elke Voss DO Attending Provider Knoble CODING QUALITY ANALYST-C, Eliud Primary Care Provider [place]le CODING QUALITY ANALYST-C, Eliud Primary Care Provider [place] CODING QUALITY ANALYST-C, Eliud Referring Provider Elan MORSE, Debra Attending Provider [phone] [place] CODING QUALITY ANALYST-C, Sherry Attending Provider Knoble CODING QUALITY ANALYST-C, Eliud Primary Care Provider Ander CASTANEDA, Dr. Echeverria Attending Provider [phone] [place] CODING QUALITY ANALYST-C, Eliud Referring Provider Knoble CODING QUALITY ANALYST-C, Eliud Primary Care Provider Ander CASTANEDA, Dr. Echeverria Attending Provider [phone] Dr. Jacki Jernigan MD Referring Provider Dax Nuñez DO, Dr. Bedoya Referring Provider Knoble CODING QUALITY ANALYST-C, Eliud Primary Care Provider [place]le CODING QUALITY ANALYST-C, Eliud Referring Provider Dax Nuñez DO, Dr. Bedoya Attending Provider MARANDA WILLINGHAM Attending Unavailable NO PRIMARY CARE, Primary Care Unavailable DEBRA MONTALVO Referring Unavailable JESÚS BALLARD Attending Unavailable DEBRA MONTALVO Referring Unavailable DOC, MISC Primary Care Unavailable JACKI JERNIGAN Referring UnavailELIZABETH Hernandez Attending Unavailable DOC, MISC Primary Care Unavailable ADAM SERRANO Attending Unavailable DEBRA MONTALVO Referring Unavailable DOC, MISC Primary Care Unavailable ADAM SERRANO Attending Unavailable DOC, MISC Primary Care Unavailable JACKI JERNIGAN Referring Unavailabl e FELIPA GARCIA Attending Unavailable DOC, MISC Primary Care Unavailable MARCANTHJACKI BERMEO E Referring Unavailabl e Knoble CODING QUALITY ANALYST-C, Eliud Primary Care Physician Knlisa CODING QUALITY ANALYST-C, Eliud Referring Provider Debra Montalvo CNM Attending Physician [phone] Ander CASTANEDA, Dr. Echeverria Attending Physician Lizabeth CODING QUALITY ANALYST-CSherry Attending Physician [phone] Dax Nuñez DO, Dr. Bedoya Attending Physician Knoble, Eliud Primary Care Unavailable Debra Montalvo Attending Unavailable Debra Montalvo Referring Unavailable Knoble, Eliud Referring Unavailable Debra Montalvo Attending Unavailable Knoble, Eliud Primary Care Unavailable Knoble, Eliud Referring Unavailable Knoble, Eliud Primary Care Unavailable Jacki Jernigan Attending Unavailable Knoble, Eliud Referring Unavailable Knoble, Eliud Primary Care Unavailable Debra Montalvo Attending Unavailable Knoble, Eliud Primary Care Unavailable CeliaonyJacki Referring Unavailable Jacki Jernigan Attending Unavailable Knoble, Eliud Primary Care Unavailable Jacki Jernigan Attending Unavailable Jacki Jernigan Referring Unavailable Knoble, Eliud Primary Care Unavailable Jacki Jernigan Attending Unavailable Jacki Jernigan Referring Unavailable Elke Voss Admitting Unavailabl e Rosalese VelElke awad Attending Unavailabl e Knoble, Eliud Primary Care Unavailable Knoble, Eliud Referring Unavailable Elke Voss Attending Unavailabl e Knoble, Eliud Primary Care Unavailable Knoble, Eliud Primary Care Unavailable Jacki Jernigan Attending Unavailable Knoble, Eliud Referring Unavailable Knoble, Eliud Primary Care Unavailable Jacki Jernigan Attending Unavailable Elke Voss Attending Unavailabl e Knoble, Eliud Primary Care Unavailable Knoble, Eliud Referring Unavailable Knoble, Eliud Referring Unavailable Knoble, Eliud Primary Care Unavailable Debra Montalvo Attending Unavailable Knoble, Eliud Referring Unavailable Vande Elke Nuñez Attending Unavailabl e Knoble, Eliud Primary Care Unavailable Knoble, Eliud Primary Care Unavailable Knoble, Eliud Referring Unavailable MarcanthJacki bermeo Attending Unavailable Knoble, Eliud Primary Care Unavailable Knoble, Eliud Referring Unavailable Debra Montalvo Attending Unavailable Knoble, Eliud Primary Care Unavailable Knoble, Eliud Referring Unavailable Jacki Jernigan Attending Unavailable Laura Jackson Attending Unavailable Knoble, Eliud Primary Care Unavailable Knoble, Eliud Referring Unavailable Elke Voss Attending Unavailabl e Knoble, Eliud Primary Care Unavailable Knoble, Eliud Primary Care Unavailable Jacki Jernigan Referring Unavailable Dequan Alejandra Attending Unavailable Lizabeth CODING QUALITY ANALYST, Sherry Attending Unavailable Knoble, Eliud Primary Care Unavailable Knoble, Eliud Referring Unavailable Lizabeth CODING QUALITY ANALYST, Sherry Attending Unavailable Knoble, Eliud Referring Unavailable Knoble, Eliud Primary Care Unavailable Dafne Vossnifer Referring Unavailabl e Rosalese Elke Nuñez Attending Unavailabl e Knoble, Eliud Primary Care Unavailable Allergies Allergy Classification Reported Allergen(s) Allergy Type Date of Onset Reaction(s) Facility (3 sources) tea tree topical; Translations: [tea tree topical] Allergy to substance Eruption of skin (disorder), Weal (disorder) [facility] (20 sources) Tea Tree; Translations: [TEA TREE] Drug Allergy 2 [facility] Work Phone: Comment on above: TEA TREE OIL (16 sources) cow milk allergenic extract Drug Allergy 4 GI upset [facility] (16 sources) Wheat gluten extract Drug Allergy 4 GI upset [facility] (1 source) TEA TREE OIL; Translations: [TEA TREE OIL] Propensity to adverse reactions to drug (disorder) 5 [facility] (1 source) Gluten Drug allergy (disorder) 5 [facility] (1 source) Milk Drug allergy (disorder) 5 [facility] (1 source) tea tree Drug allergy (disorder) 5 [facility] Medications Current Medications Medication Drug Class(es) Dates Sig (Normalized) Sig (Original) busPIRone hydrochloride 5 mg oral tablet (20 sources) Start: 04-26-2024 End: 11-10-2024 take 1 tablet by mouth three times daily Buspirone 5 mg tablet Active 5 mg PO THREE TIMES A DAY June 21, 2024 1:00am Complies with drug therapy Start: 12-04-2023 End: 04-26-2024 take 1 tablet by mouth twice daily busPIRone (BUSPAR) 5 mg tablet Indications: Anxiety with depression Take 1 tablet by mouth two times a day. 180 tablet 1 01/15/2024 04/26/2024 Discontinued cetirizine hydrochloride 10 mg oral tablet (20 sources) Histamine-1 Receptor Antagonist Start: 12-12-2019 Zyrtec 10 mg oral tablet Dose : 10 mg = 1 tab(s), Oral, qDay, 0 Refill(s) Start Date: 12/12/19 Status: Ordered Start: 10-07-2019 take 1 capsule by mo ut once daily Cetirizine (Zyrtec) 10 mg capsule Active 10 mg PO DAILY October 07, 2019 12:00am allergies Complies with drug therapy Comment on above: Take 1 capsule by mo ut once daily. cholecalciferol 0.025 mg oral capsule (20 sources) Vitamin D Start: 05-06-19 take 1 capsule by mouth once daily Cholecalciferol (Vitamin D3) (Vitamin D3) 25 mcg (1,000 unit) Capsule Active 50 ug PO DAILY May 06, 2021 1:00am supplement Complies with drug therapy take 1 tablet by mouth once kendra y cholecalciferol (VITAMIN D-3) 5,000 unit tab Take 5,000 Units by mouth once daily. Active Comment on above: Take 5,000 Units by mouth once daily. citalopram 40 mg oral tablet (20 sources) Serotonin Reuptake Inhibitor Start: 10-14-2021 take 1 tablet by mouth once daily Citalopram 40 mg tablet Active 40 mg PO DAILY October 14, 2021 12:00am Complies with drug therapy Start: 05-19-2021 End: 10-14-2021 take 1 tablet by mouth once daily Citalopram (Celexa) 20 mg Tablet Discontinued 20 mg PO DAILY June 18, 2021 1:00am October 14, 2021 8:35am mood docosahexaenoic acid 200 mg oral capsule (15 sources) Start: 06-21-2024 Docosahexaenoi c Acid ( Dha) 200 mg capsule Active mg PO June 21, 2024 1:00am Complies with drug therapy docosahexaenoic acid/epa (FISH OIL ORAL) (20 sources) take 700 mg by mouth once daily docosahexaenoic acid/epa (FISH OIL ORAL) Take 700 mg by mouth once daily. Active take 700 mg by mouth once daily docosahexaenoic acid/epa (FISH OIL ORAL) Take 700 mg by mouth once daily. 0 Active Comment on above: Take 700 mg by mouth once daily. ferrous sulfate 325 mg oral tablet (20 sources) Start: 12-04-2024 take 1 tablet by mouth once daily Ferrous Sulfate 325 mg (65 mg iron) tablet Active 325 mg PO daily December 04, 2024 12:00am Complies with drug therapy End: 04-26-2024 ferrous sulfate (IRON) 325 m g (65 mg iron) tablet Take 325 mg by mouth. 04/26/2024 Discontinued Comment on above: Take 325 mg by mouth . Fish Oils (1 source) Start: 3 take 1 dose by mouth once daily [place]-3 Fish Oil Dose : 1,000 mg =, Oral, qDay, 0 Refill(s) Start Date: 06/15/22 Status: Ordered Flonase Allergy Relief (3 sources) Start: 1 Flonase Allergy Relief qDay, 0 Refill(s) Start Date: 01/19/21 Status: Ordered FLUoxetine 20 mg oral capsule (20 sources) Serotonin Reuptake Inhibitor Start: 5 End: 5 take 1 capsule by mouth once daily FLUoxetine (PROZAC) 10 mg capsule Indications: Anxiety with depression TAKE 1 CAPSULE BY MOUTH EVERY DAY 90 capsule 1 05/20/2024 07/04/2024 Discontinued Start: 03-26-2024 End: 01-07-2025 take 1 capsule by mouth once daily FLUoxetine (PROZAC) 20 mg capsule Indications: Anxiety with depression Take 1 capsule by mouth once daily. 90 capsule 01/07/2025 Active Start: 11-16-2023 End: 04-26-2024 FLUoxetine (PROZAC) 10 mg ca psule Indications: Anxiety with depression Take one capsule every other day with 10mg for total of 30mg. 90 capsule 01/15/2024 04/26/2024 Discontinued Start: 11-16-2023 End: 03-26-2024 FLUoxetine (PROZAC) 20 mg ca psule Indications: Anxiety with depression Take one capsule every other day with 10mg for total of 30mg. 90 capsule 01/15/2024 03/26/2024 Discontinued Start: 09-26-2023 End: 10-30-2023 FLUoxetine (PROZAC) 10 mg ca psule Indications: Anxiety with depression Take one capsule every other day with 10mg for total of 30mg. 14 capsule 0 10/30/2023 Active Start: 09-26-2023 End: 10-30-2023 FLUoxetine (PROZAC) 20 mg ca psule Indications: Anxiety with depression Take one capsule every other day with 10mg for total of 30mg. 14 capsule 0 10/30/2023 Active Start: 03-01-2023 End: 01-15-2024 take 1 capsule by mouth once daily FLUoxetine (PROZAC) 40 mg capsule Indications: Anxiety with depression Take 1 capsule by mouth every day 90 capsule 1 10/30/2023 01/15/2024 Discontinued Comment on above: Take 40 mg by mouth once daily. Take 1 capsule by mo [facility] every day Ibuprofen (20 sources) Nonsteroidal Anti-inflammatory Drug Start: 06-15-2022 ibuprofen PRN as needed for menstrual pain, 0 Refill(s) Start Date: 06/15/22 Status: Ordered Start: 06-23-2021 End: 06-21-2024 Ibuprofen 800 mg tablet Disc ontinued 400 mg PO Q8H as needed for pain June 23, 2021 3:26pm June 21, 2024 10:46am Start: 06-23-2021 take 400 mg by mouth every eight hours Ibuprofen Active 400 MG PO Q8H June 23, 2021 3:26pm Start: 05-13-2021 End: 06-23-2021 take 1 tablet by mouth every eight hours as needed for pain Ibuprofen 800 mg tablet Discontinued 800 mg PO Q8H as needed for pain 30 May 13, 2021 1:00am June 23, 2021 3:26pm Magnesium (16 sources) Start: 06-18-2021 take 1 tablet by storm once daily Magnesium 250 mg Tablet Active 250 mg PO DAILY June 18, 2021 1:00am supplement Complies with drug therapy Start: 06-18-2021 take 1 tablet by storm th once daily Start: 06-18-2021 take 1 tablet by storm th once daily Magnesium 250 mg Tablet Active 250 mg PO DAILY June 18, 2021 1:00am supplement Start: 06-18-2021 take 1 tablet by storm th once daily Magnesium 250 mg Tablet Active 250 mg PO DAILY June 18, 2021 1:00am Start: 06-18-2021 take 250 mg by mouth once kendra y Magnesium Active 250 MG PO DAILY June 18, 2021 1:00am magnesium citrate 150 mg oral capsule (20 sources) take 150 mg by mouth once daily MAGNESIUM CITRATE ORAL Take 150 mg by mouth once daily. Active Comment on above: Take 150 mg by mouth once daily. Multivitamin preparation (4 sources) Start: 05-06-2021 take 1 capsule by mouth once daily Multivitamin Active 1 CAP PO DAILY May 06, 2021 1:00am Start: 03-25-2020 take 1 tablet by storm th once daily Multivitamin Dose = 1 tab(s), Oral, Daily, 0 Refill(s) Start Date: 03/25/20 Status: Ordered oxyCODONE hydrochloride 5 mg oral tablet (1 source) Opioid Agonist Start: 05-19-2021 oxyCODONE 5 mg oral tablet ( IMMEDIATE release ) Dose : 5 mg = 1 tab(s), Oral, q6h, PRN for pain, # 12 tab(s), 0 Refill(s), 57.7 Start Date: 05/19/21 Status: Ordered Probiotic (1 source) Start: 08-10-2021 Probiotic 0 Re fill(s) Start Date: 08/10/21 Status: Ordered Vitamin D3 (3 sources) Start: 03-25-2020 Vitamin D3 qDa y, 0 Refill(s) Start Date: 03/25/20 Status: Ordered Completed/Discontinued Medications Medication Drug Class(es) Dates Sig (Normalized) Sig (Original) albuterol MDI (90 mcg/inh) CFC free inhalation aerosol (3 sources) Start: 12-12-2019 End: 05-10-2020 take 2 puff(s) by inhalation every four hours as needed for wheezing albuterol MDI (90 mcg/inh) CFC free inhalation aerosol 2 puff(s), Inhalation, q4h, PRN as needed for wheezing, use with spacer chamber, # 1 EA, 4 Refill(s), Pharmacy: [id number], 160.3, cm, 12/12/19 10:19:00 EDT, Height, kg, 12/12/19 10:19:00 EDT, Dosing Weight Start Date: 12/12/19 Stop Date: 05/10/20 Status: Ordered ascorbic acid 500 mg oral tablet (16 sources) Vitamin C Start: 06-18-2021 End: 10-14-2021 take 1 tablet by mouth once daily Ascorbic Acid (Vitamin C) (Vitamin C) 500 mg Tablet Discontinued 500 mg PO DAILY June 18, 2021 1:00am October 14, 2021 8:35am supplement B5/B6/PABA/cord/rh od/P.ginseng (ADRENAL ESSENCE ORAL) (20 sources) End: 01-15-2024 B5/B6/PABA/cord/rho d/P.ginseng (ADRENAL ESSENCE ORAL) Take by mouth. 01/15/2024 Discontinued B5/B6/PABA/cord/ rhod/P.ginseng (ADRENAL ESSENCE ORAL) Take by mouth. Active B5/B6/PABA/cord/ rhod/P.ginseng (ADRENAL ESSENCE ORAL) Take by mouth. 0 Active Comment on above: Take by mouth. dicyclomine hydrochloride 10 mg oral capsule (20 sources) Anticholinergic Start: 2 End: 5 take 1 capsule by mouth once daily Dicyclomine 10 mg capsule Discontinued 10 mg PO daily 90 3 November 09, 2023 10:13am June 21, 2024 10:46am enteric contrast (will be provided with radiology test) (7 sources) Start: 4 End: 4 enteric contrast (will be provided with radiology test) Indications: Left lower quadrant abdominal pain For CT ABD/PEL W IVCON Routine order Administer, As Directed One Time Only, via Oral, Rectal, both Oral and Rectal, Enteric Tube, Stoma or Indwelling Catheter, Enteric Contrast as designated per enteric contrast guidelines 1 Each 07/11/2023 07/12/2023 Start: 07-11-2023 End: 07-12-2023 enteric contrast (will be pr ovided with radiology test) Indications: Left lower quadrant abdominal pain For CT ABD/PEL W IVCON Routine order Administer, As Directed One Time Only, via Oral, Rectal, both Oral and Rectal, Enteric Tube, Stoma or Indwelling Catheter, Enteric Contrast as designated per enteric contrast guidelines 1 Each 0 07/11/2023 07/12/2023 Active Comment on above: For CT ABD/PEL W IVC ON Routine order Administer, As Directed One Time Only, via Oral, Rectal, both Oral and Rectal, Enteric Tube, Stoma or Indwelling Catheter, Enteric Contrast as designated per enteric contrast guidelines fluticasone propionate 0.05 mg/actuat metered dose nasal spray (20 sources) Corticosteroid Start: End: fluticasone (FLONASE ALLERGY RELIEF) 50 mcg/actuation nasal spray Flonase Allergy Relief qDay, 0 Refill(s) Start Date: 01/19/21 Status: Ordered 01/19/2021 04/26/2024 Discontinued Comment on above: Flonase Allergy Reli ef qDay, 0 Refill(s) Start Date: 01/19/21 Status: Ordered hyoscyamine sulfate 0.125 mg disintegrating oral tablet (16 sources) Start: End: take 1 tablet by mouth once daily as needed Hyoscyamine Sulfate 0.125 mg tablet,disintegrating Discontinued 0.125 mg PO DAILY as needed for dyspepsia 20 0 June 25, 2021 1:00am July 02, 2021 3:09pm iv contrast (will be provided with radiology test) (7 sources) Start: End: iv contrast (will be provided with radiology test) Indications: Left lower quadrant abdominal pain CT ABD/PEL -Inject, intravenously, once for 1 dose.No IV access, insert saline lock prior to the beginning of sedation, infusion, injection of imaging exam. Discontinue saline lock post exam. If Pt. has a central line or IVAD, may access for administration according to line specific nursing protocol. Once exam is complete flush line and de-access according to line specific nursing protocol in the CT contrast administration guidelines link. 1 Each 07/11/2023 07/12/2023 Start: 07-11-2023 End: 03-20-2024 iv contrast (will be provide d with radiology test) Indications: Left lower quadrant abdominal pain CT ABD/PEL -Inject, intravenously, once for 1 dose.No IV access, insert saline lock prior to the beginning of sedation, infusion, injection of imaging exam. Discontinue saline lock post exam. If Pt. has a central line or IVAD, may access for administration according to line specific nursing protocol. Once exam is complete flush line and de-access according to line specific nursing protocol in the CT contrast administration guidelines link. 1 Each 0 07/11/2023 07/12/2023 Active Comment on above: CT ABD/PEL -Inject, intravenously, once for 1 dose.No IV access, insert saline lock prior to the beginning of sedation, infusion, injection of imaging exam. Discontinue saline lock post exam. If Pt. has a central line or IVAD, may access for administration according to line specific nursing protocol. Once exam is complete flush line and de-access according to line specific nursing protocol in the CT contrast administration guidelines link. Lactobacillus Combination No.4 (Probiotic) 3 billion cell Capsule (16 sources) Start: 022 End: take 3 capsules by mouth once daily Lactobacillus Combination No.4 (Probiotic) 3 billion cell Capsule Discontinued 3000 NMA PO DAILY June 18, 2021 1:00am June 21, 2024 10:46am probiotic Start: 06-18-2021 End: 06-21-2024 take 3 capsules by mouth once daily Lactobacillus Combination No.4 (Probiotic) 3 billion cell Capsule Discontinued 3000 NMA PO DAILY June 18, 2021 1:00am June 21, 2024 10:46am Start: 06-18-2021 take 3 capsules by m outh once daily Lactobacillus Combination No.4 (Probiotic) 3 billion cell Capsule Active 3000 MMU CELLS PO DAILY June 18, 2021 1:00am lubiprostone 0.008 mg oral capsule (20 sources) Chloride Channel Activator Start: 09-26-2023 End: 06-21-2024 take 1 capsule by mouth once daily Lubiprostone (Amitiza) 8 mcg capsule Discontinued 8 ug PO DAILY 90 January 16, 2024 2:50pm June 21, 2024 10:46am Start: 06-15-2023 End: 10-30-2023 take 1 capsule by mouth once daily Lubiprostone (Amitiza) 24 mcg capsule Discontinued 24 ug PO DAILY 90 1 October 16, 2023 12:57pm October 30, 2023 9:48am Start: 06-07-2021 End: 06-20-2023 take 1 capsule by mouth once daily Lubiprostone (Amitiza) 8 mcg capsule Discontinued 8 ug PO DAILY 90 3 March 21, 2023 10:25am June 15, 2023 12:11pm Start: 03-25-2020 Amitiza 8 mcg oral capsule Dose : 8 mcg = 1 cap(s), Oral, qDay, 0 Refill(s) Start Date: 03/25/20 Status: Ordered Comment on above: Take 1 capsule by mo [facility] once daily. Take 1 capsule (8 mc g) by mouth daily magnesium oxide 250 mg oral tablet (1 source) Start: 08-10-2021 End: 08-16-2021 Magnesium 250 mg tablet Dose : 500 mg = 2 tab(s), Oral, qDay, # 14 tab(s), 0 Refill(s) Start Date: 08/10/21 Stop Date: 08/16/21 Status: Ordered MULTI-VITAMIN ORAL (3 sources) End: 06-20-2023 take 1 tablet by mouth once daily MULTI-VITAMIN ORAL Take 1 tablet by mouth once daily. 0 06/20/2023 Discontinued take 1 tablet by mouth once kendra y MULTI-VITAMIN ORAL Take 1 tablet by mouth once daily. 0 Active Comment on above: Take 1 tablet by [facility] once daily. Multivitamin Capsule (15 sources) Start: 05-06-2021 End: 06-21-2024 Multivitamin Capsule Discontinued 1 NMA PO DAILY May 06, 2021 1:00am June 21, 2024 10:47am supplement Start: 05-06-2021 End: 06-21-2024 Multivitamin Capsule Discont inued 1 NMA PO DAILY May 06, 2021 1:00am June 21, 2024 10:47am ondansetron 4 mg disintegrating oral tablet (16 sources) Serotonin-3 Receptor Antagonist Start: 07-06-2023 End: 06-21-2024 take 1 tablet by mouth every eight hours as needed for nausea Ondansetron 4 mg tablet,disintegrating Discontinued 4 mg PO EVERY 8 HOURS NEEDED as needed for Nausea 10 0 July 06, 2023 12:00am June 21, 2024 10:46am pantoprazole 40 mg delayed release oral tablet (20 sources) Proton Pump Inhibitor Start: 10-14-2021 End: 06-21-2024 take 1 tablet by mouth once daily in the morning Pantoprazole 40 mg tablet,delayed release (DR/EC) Discontinued 40 mg PO EVERY MORNING 90 3 October 16, 2023 12:57pm June 21, 2024 10:47am Start: 07-02-2021 End: 10-14-2021 take 1 tablet by mouth twice daily Pantoprazole 40 mg tablet,delayed release (DR/EC) Discontinued 40 mg PO TWICE A DAY 180 2 July 02, 2021 1:00am October 14, 2021 8:49am Comment on above: Take 40 mg by mouth every morning. predniSONE 10 mg oral tablet (16 sources) Start: 0 End: Prednisone 10 mg tablet Discontinued 10 mg PO daily 30 12 0 October 07, 2019 12:00am October 18, 2019 12:00am October 19, 2019 12:02am Unspecified contact dermatitis, unspecified cause Take 4 tabs once daily days 1-3 3 tabs once daily days 4-6 2 tabs once daily days 7-9 and 1 tab once daily days 10-12. sucralfate 1000 mg oral tablet (16 sources) Aluminum Complex Start: 2 End: 2 take 1 tablet by mouth before mealtime Sucralfate 1 gram tablet Discontinued 1 g PO before meals 90 0 July 02, 2021 1:00am October 14, 2021 8:48am Zinc (16 sources) Start: 2 End: 2 take 1 tablet by mouth once daily Zinc 50 mg Tablet Discontinued 50 mg PO DAILY June 18, 2021 1:00am October 14, 2021 8:35am supplement Start: 06-18-2021 End: 10-14-2021 take 1 tablet by mouth once daily Zinc 50 mg Tablet Discontinued 50 mg PO DAILY June 18, 2021 1:00am October 14, 2021 8:35am Start: 06-18-2021 End: 10-14-2021 take 50 mg by mouth once daily Zinc Discontinued 50 MG PO DAILY June 18, 2021 1:00am October 14, 2021 8:35am Problems Active Problems Problem Classification Problem Date Documented Da te Episodic/Chronic Abdominal pain (20 sources) Left lower quadrant pain; Translations: [Generalized abdominal pain] Onset: 4 12-12-2019 Episodic Allergic reactions (16 sources) Allergic contact dermatitis; Translations: [Allergic contact dermatitis, unspecified cause] 10-07-2019 Episodic Anxiety disorders (20 sources) Anxiety; Translations: [Mixed anxiety and depressive disorder] Onset: 5 12-12-2019 Chronic Comment on above: On Prozac & Just sta rted counseling Asthma (3 sources) Exercise-induced asthma 12-11-2019 Chronic Cardiac and circulatory congenital anomalies (2 sources) Heart valve disorder; Translations: [Other specified congenital malformations of heart] Onset: 4 06-20-2023 Chronic Conditions associated with dizziness or vertigo (7 sources) Dizziness; Translations: [Postural dizziness] 05-19-2021 Episodic Deficiency and other anemia (3 sources) Iron deficiency anemia; Translations: [Iron deficiency anemia, unspecified] 06-20-2023 Episodic Deficiency and other anemia (1 source) Iron deficiency anemia, unspecified; Translations: [Iron deficiency anemia, unspecified iron deficiency anemia type] Onset: 5 Episodic Diabetes or abnormal glucose tolerance complicating ; childbirth; or the puerperium (20 sources) Abnormal glucose level; Translations: [Abnormal glucose complicating ] Onset: 5 11-22-2024 Episodic Comment on above: normal 3 hr GTT Endometriosis (20 sources) Endometriosis (clinical); Translations: [Endometriosis, unspecified] Onset: 5 12-11-2019 Chronic Esophageal disorders (5 sources) Gastroesophageal reflux disease 12-12-2019 Chronic Gastroduodenal ulcer (except hemorrhage) (16 sources) Pyloric ulcer; Translations: [Gastric ulcer, unspecified as acute or chronic, without hemorrhage or perforation] 10-14-2021 Chronic Gastroduodenal ulcer (except hemorrhage) (1 source) H/O: gastric ulcer 06-19-2022 Episodic Headache; including migraine (3 sources) Headache 03-25-2020 Episodic Heart valve disorders (6 sources) Pulmonic valve regurgitation; Translations: [Tricuspid valve regurgitation] 02-07-2020 Chronic Immunizations and screening for infectious disease (4 sources) Autoantibody titer positive; Translations: [Other specified abnormal immunological findings in serum] Onset: 5 06-22-2023 Episodic Malaise and fatigue (1 source) Fatigue; Translations: [Other fatigue] 06-20-2023 Episodic Menstrual disorders (1 source) Menorrhagia; Translations: [Excessive and frequent menstruation with regular cycle] 06-15-2023 Chronic Mood disorders (20 sources) Depressive disorder; Translations: [Recurrent major depressive episodes, moderate ] 12-12-2019 Chronic Mood disorders (1 source) Mood disorders; Translations: [Depression, unspecified] Onset: Nausea and vomiting (19 sources) Nausea, vomiting and diarrhea; Translations: [Nausea with vomiting, unspecified] Onset: 4 07-06-2023 Episodic Noninfectious gastroenteritis (16 sources) Colitis; Translations: [Noninfective gastroenteritis and colitis, unspecified] 06-30-2021 Episodic Nonspecific chest pain (3 sources) Chest pain 01-16-2020 Episodic Nutritional deficiencies (1 source) Vitamin D deficiency 06-15-2022 Chronic Other circulatory disease (3 sources) Abdominal bruit 12-12-2019 Episodic Other complications of (20 sources) High risk ; Translations: [Supervision of high risk , unspecified, unspecified trimester] 07-12-2024 Episodic Comment on above: PRR, G1, RADHA 5, : Mandeep PRR, G1, RADHA 5, : Mandepe (has septal defect) PRR, RADHA , boy secret name : Mandeep (has septal defect Other complications of (20 sources) RhD negative; Translations: [Other specified related conditions, unspecified trimester] 06-21-2024 Episodic Comment on above: O-, Rhogam @ 28wks & as needed O-, Rhogam @ 28wks & as needed. given 11/20/24 Other complications of (20 sources) Placenta circumvallata; Translations: [Circumvallate placenta, unspecified trimester] 09-20-2024 Episodic Comment on above: Growth US Q4 weeks @ 28 weeks Growth US Q4 weeks @ 28 weeks. 11/20:28w-69% EFW. 63% AC Other complications of (1 source) Circumvallate placenta, third trimester; Translations: [Circumvallate placenta, third trimester] Onset: 5 Episodic Other complications of (1 source) Other specified related conditions, third trimester; Translations: [Other specified related conditions, third trimester] Onset: 5 Episodic Other complications of (1 source) Supervision of high risk , unspecified, third trimester; Translations: [Supervision of high risk , unspecified, third trimester] Onset: 5 Episodic Other complications of (1 source) Supervision of high risk , unspecified, unspecified trimester; Translations: [Supervision of high risk , unspecified, unspecified trimester] Onset: Episodic Other complications of (1 source) Other specified related conditions, unspecified trimester; Translations: [Other specified related conditions, unspecified trimester] Onset: Episodic Other disorders of stomach and duodenum (16 sources) Intestinal metaplasia of gastric mucosa; Translations: [Intestinal metaplasia of stomach without dysplasia] 10-14-2021 Episodic Other endocrine disorders (20 sources) Polycystic ovary syndrome; Translations: [Polycystic ovarian syndrome] 06-21-2024 Chronic Other endocrine disorders (1 source) Polycystic ovarian syndrome; Translations: [Polycystic ovarian syndrome] Onset: Chronic Other female genital disorders (1 source) Chronic pelvic pain of female; Translations: [Chronic pelvic pain in female] 06-21-2024 Episodic Other gastrointestinal disorders (20 sources) Irritable bowel syndrome characterized by constipation; Translations: [Irritable bowel syndrome with constipation] 07-02-2021 Chronic Other gastrointestinal disorders (1 source) Irritable bowel syndrome with constipation; Translations: [Irritable bowel syndrome with constipation] Onset: Chronic Other gastrointestinal disorders (3 sources) Chronic constipation 12-11-2019 Episodic Other gastrointestinal disorders (3 sources) Dysphagia 12-12-2019 Episodic Other gastrointestinal disorders (16 sources) Diarrhea; Translations: [Diarrhea, unspecified] 06-07-2021 Episodic Other gastrointestinal disorders (1 source) Altered bowel function; Translations: [Change in bowel habit] 07-11-2023 Episodic Other liver diseases (1 source) Elevated liver enzymes level 08-10-2021 Episodic Other liver diseases (16 sources) Enzyme level - finding; Translations: [Elevated transaminase measurement] 06-24-2021 Episodic Other liver diseases (20 sources) Ischemic hepatitis; Translations: [Acute and subacute hepatic failure without coma] 07-02-2021 Episodic Other liver diseases (1 source) Acute and subacute hepatic failure without coma; Translations: [Acute and subacute hepatic failure without coma] Onset: Episodic Other nervous system disorders (3 sources) Numbness and tingling sensation of skin 12-12-2019 Episodic Other nutritional; endocrine; and metabolic disorders (3 sources) Weight loss 05-19-2021 Episodic Other screening for suspected conditions (not mental disorders or infectious disease) (13 sources) Electrocardiogram abnormal; Translations: [Platelet count below reference range] Onset: 5 12-26-2019 Episodic Other skin disorders (1 source) Loss of hair 09-27-2021 Episodic Other upper respiratory disease (3 sources) Allergic rhinitis 12-11-2019 Chronic Other upper respiratory disease (3 sources) Seasonal allergy 12-12-2019 Chronic Ovarian cyst (3 sources) Cyst of ovary 12-11-2019 Episodic Residual codes; unclassified (3 sources) H/O: Disorder 12-12-2019 Episodic Residual codes; unclassified (3 sources) History of headache 12-12-2019 Episodic Residual codes; unclassified (1 source) Difficulty sleeping 09-27-2021 Episodic Residual codes; unclassified (16 sources) History of colonoscopy; Translations: [Other specified postprocedural states] 06-23-2021 Episodic Residual codes; unclassified (20 sources) Adopted; Translations: [Other specified health status] 06-21-2024 Episodic Comment on above: Unknown family medic al hx Residual codes; unclassified (20 sources) Family history of congenital anomaly of cardiovascular system; Translations: [Family history of other congenital malformations, deformations and chromosomal abnormalities] 09-20-2024 Episodic Comment on above: Echo by Ped Ca rd 22-24w Echo by Ped Ca rd [id number] Residual codes; unclassified (1 source) Unspecified blood type, Rh negative; Translations: [Unspecified blood type, Rh negative] Onset: 5 Episodic Residual codes; unclassified (1 source) Other specified health status; Translations: [Other specified health status] Onset: 5 Episodic Residual codes; unclassified (1 source) Family history of other congenital malformations, deformations and chromosomal abnormalities; Translations: [Family history of other congenital malformations, deformations and chromosomal abnormalities] Onset: 5 Episodic Residual codes; unclassified (1 source) 39 weeks gestation of ; Translations: [39 weeks gestation of ] Onset: 5 Episodic Residual codes; unclassified (1 source) 36 weeks gestation of ; Translations: [36 weeks gestation of ] Onset: 5 Episodic Residual codes; unclassified (1 source) 34 weeks gestation of ; Translations: [34 weeks gestation of ] Onset: 5 Episodic Residual codes; unclassified (1 source) 30 weeks gestation of ; Translations: [30 weeks gestation of ] Onset: Episodic Screening and history of mental health and substance abuse codes (2 sources) Patient encounter status; Translations: [Encounter for screening examination for other mental health and behavioral disorders] Onset: 05-30-2024 Episodic Superficial injury; contusion (16 sources) Contusion of right foot; Translations: [Contusion of right foot, initial encounter] 12-23-2020 Episodic Thyroid disorders (20 sources) Goiter; Translations: [Edgar thyroiditis] Onset: 05-19-2021 Chronic Comment on above: tsh levels every tri mester and 6 week post Viral infection (3 sources) Disease caused by 2019-nCoV 05-01-2020 Past or Other Problems Problem Classification Problem Date Documented Date Episodic/Chronic Cardiac dysrhythmias (20 sources) Palpitations; Translations: [Palpitations] Onset: 09-30-2024 07-24-2024 Episodic Comment on above: EKG ordered. Other complications of (1 source) Circumvallate placenta, unspecified trimester; Translations: [Circumvallate placenta, unspecified trimester] Onset: 11-06-2024 Episodic Other and delivery including normal (20 sources) ; Translations: [Encounter for supervision of normal , unspecified, unspecified trimester] Onset: 07-12-2024 06-21-2024 Episodic Comment on above: Discussed genetic/ca rrier testing - undecided Discussed genetic/ca rrier testing - undecided, need f/u anatomy views. Discussed genetic/ca rrier testing - nl anatomy. Neg GBS Discussed ge netic/carrier testing - nl anatomy. Residual codes; unclassified (1 source) 26 weeks gestation of ; Translations: [26 weeks gestation of ] Onset: 11-06-2024 Episodic Residual codes; unclassified (1 source) 21 weeks gestation of ; Translations: [21 weeks gestation of ] Onset: 09-30-2024 Episodic Residual codes; unclassified (1 source) 13 weeks gestation of ; Translations: [13 weeks gestation of ] Onset: 08-06-2024 Episodic Results Test Name Value Interpretation Reference Range Facility [employer] Office Visit Reporton 01-31-2025 [employer] Office Visit Report [facility] [address], [address] [place] [address] OFFICE VISIT Date of Service: 01/31/25 MR#: [id number] Acct: [id number] Name: PATTIE BALDERAS MATEO Rep #: [id number] 2 : 1995 Provider: LITO Costa ams Age/Sex: 29/F Location: [facility] Status: Signed Intake Vital Signs 12/18/24 09:42 01/24/25 13:08 01/31/25 13:25 Height 5 ft 4 in 5 ft 4 in 5 ft 4 in Weight: 184 lb BMI 31.6 BP 134/84 H Intake Visit Reasons: 39wk ob Chief Complaint: 39wk OB Exhibition Specialist Required: No Is patient in pain?: No Allergies gluten Allergy (Verified 01/31/25 13:25) GI upset milk Allergy (Verified 01/31/25 13:25) GI upset tea tree Allergy (Verified 01/31/25 13:25) Hives Medications ???Medication ???Instructions ???Recorded ???Confirmed ???Type cetirizine 10 mg capsule (Zyrtec) 10 mg PO DAILY allergies 10/07/19 01/31/25 History cholecalciferol (vitamin D3) 25 50 mcg PO DAILY supplement 2 01/31/25 History mcg (1,000 unit) capsule (Vitamin D3) magnesium 250 mg tablet 250 mg PO DAILY supplement 06/18/2 2 01/31/25 History citalopram 40 mg tablet 40 mg PO DAILY 10/14/21 01/31/25 H istory buspirone 5 mg tablet 5 mg PO TID 06/21/24 01/31/25 Hist ory docosahexaenoic acid 200 mg mg PO 06/21/24 01/31/25 History capsule ( DHA) ferrous sulfate 325 mg (65 mg 325 mg PO QDAY 12/04/24 01/31/25 H istory iron) tablet Last Menstrual Period: 05/02/24 : No Have you fallen in the past year?: No PFSH PFSH Medical History Ischemic hepatitis Allergic contact dermatitis Transaminitis Intestinal metaplasia of stomach without dysplasia Pyloric ulcer Irritable bowel syndrome with constipation Ovarian cyst Migraine headache Syncope Asthma Surgical History Hx of exploratory laparotomy Hx of colonoscopy with polypectomy 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/hazards: No pets and animals: Yes pets and animals: dog(s) history of recent travel: Yes ([facility] 2023) out of state: Yes out of country: No sexually active: Yes Smoking Status: Never smoker alcohol intake: current alcohol intake frequency: holidays/special occasions only details: Not while substance use type: does not use diet: gluten free and lactose free well-balanced diet: daily or most days caffeine: No eating out: 1-3 times/week during the past year weight has: increased > 10 lbs what type of physical activity do you participate in: walking, yoga and weight training frequency: 1-2 times per week duration: 15-30 minutes/day fredy/faith: Presybeterian seatbelt use: always do you feel safe at home: Yes additional social history: : 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 OB Visit RADHA Calculator Estimated Delivery Date Method Current WG Current Estimate 02/06/25 LMP (Certain) 39w 1d Other Estimates 02/11/25 Ultrasound #1 38w 3d Expected Delivery Route/Plan Labor Preferences- CB/BF classes: yes labor support person: Mandeep labor intervention preferences: [] pain management options preferred: limited cut cord/dad catch: no : yes PP control planned: discussed discussed possible routes of delivery and associated risks: [] special requests: [] Specific Issue/Plans Covid status: [] Flu vaccine: [] Tdap vaccine: given Rhogam: given 11/20/24 LARC form signed: yes Problem list reviewed and updated with the most current plan of care details and appropriate orders placed. Relevant counseling for the gestational age provided. Continue routine care and follow up unless otherwise noted in visit notes/problem list details Initial Weight: 148 lb Date -???-???-???-???-??? -???-???-???-???-??? -???-???- EGA Weight BP Urine Prot -???-???-???-???-??? -???-???-???-???-??? -???-???- Glucose FHR FuHt Pres Dilation -???-???-???-???-??? -???-???-???-???-??? -???-???- Effaced St Visit Note (more content not included)... Normal [facility] [employer] Office Visit Reporton 01-24-2025 [employer] Office Visit Report [facility] [address], [address] [place] [address] OFFICE VISIT Date of Service: 01/24/25 MR#: [id number] Acct: [id number] Name: PATTIE BALDERAS MATEO Rep #: [id number] 9 : 1995 Provider: Dr. Elke Pike DO Age/Sex: 29/F Location: [facility] Status: Signed Intake Vital Signs 12/18/24 09:42 01/13/25 14:59 01/24/25 13:08 Height 5 ft 4 in 5 ft 4 in 5 ft 4 in Weight: 180 lb 183 lb 8 oz BMI 30.9 31.4 BP 126/80 H 125/81 H Intake Visit Reasons: 38wk ob Exhibition Specialist Required: No Is patient in pain?: No Allergies gluten Allergy (Verified 01/24/25 13:08) GI upset milk Allergy (Verified 01/24/25 13:08) GI upset tea tree Allergy (Verified 01/24/25 13:08) Hives Medications ???Medication ???Instructions ???Recorded ???Confirmed ???Type cetirizine 10 mg capsule (Zyrtec) 10 mg PO DAILY allergies 10/07/19 01/24/25 History cholecalciferol (vitamin D3) 25 50 mcg PO DAILY supplement 2 01/24/25 History mcg (1,000 unit) capsule (Vitamin D3) magnesium 250 mg tablet 250 mg PO DAILY supplement 2 01/24/25 History citalopram 40 mg tablet 40 mg PO DAILY 10/14/21 01/24/25 H istory buspirone 5 mg tablet 5 mg PO TID 06/21/24 01/24/25 Hist ory docosahexaenoic acid 200 mg mg PO 06/21/24 01/24/25 History capsule ( DHA) ferrous sulfate 325 mg (65 mg 325 mg PO QDAY 12/04/24 01/24/25 H istory iron) tablet Last Menstrual Period: 05/02/24 Zika: Zika virus screening: Negative : No PFSH PFSH Medical History Ischemic hepatitis Allergic contact dermatitis Transaminitis Intestinal metaplasia of stomach without dysplasia Pyloric ulcer Irritable bowel syndrome with constipation Ovarian cyst Migraine headache Syncope Asthma Surgical History Hx of exploratory laparotomy Hx of colonoscopy with polypectomy 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: No pets and animals: Yes pets and animals: dog(s) history of recent travel: Yes ([facility]2023) out of state: Yes out of country: No sexually active: Yes Smoking Status: Never smoker alcohol intake: current alcohol intake frequency: holidays/special occasions only details: Not while substance use type: does not use diet: gluten free and lactose free well-balanced diet: daily or most days caffeine: No eating out: 1-3 times/week during the past year weight has: increased > 10 lbs what type of physical activity do you participate in: walking, yoga and weight training frequency: 1-2 times per week duration: 15-30 minutes/day fredy/faith: [employer]ian seatbelt use: always do you feel safe at home: Yes additional social history: : 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 OB Visit RADHA Calculator Estimated Delivery Date Method Current WG Current Estimate 02/06/25 LMP (Certain) 38w 1d Other Estimates 02/11/25 Ultrasound #1 37w 3d Expected Delivery Route/Plan Labor Preferences- CB/BF classes: yes labor support person: Mandeep labor intervention preferences: [] pain management options preferred: limited cut cord/dad catch: no : yes PP control planned: discussed discussed possible routes of delivery and associated risks: [] special requests: [] Specific Issue/Plans Covid status: [] Flu vaccine: [] Tdap vaccine: given Rhogam: given 11/20/24 LARC form signed: yes Problem list reviewed and updated with the most current plan of care details and appropriate orders placed. Relevant counseling for the gestational age provided. Continue routine care and follow up unless otherwise noted in visit notes/problem list details Initial Weight: 148 lb Date -???-???-???-???-??? -???-???-???-???-??? -???-???- EGA Weight BP Urine Prot -???-???-???-???-??? -???-???-???-???-??? -???-???- Glucose FHR FuHt Pres Dilation -???-???-???-???-??? -???-???-???-???-??? -???-???- (more content not included)... Normal [facility] Rule out Beta Strep (Grp. B) on 01-15-2025 CHRISTINA Group B Beta Streptococcus is not isolated. Normal [facility] Comment on above: Performed By: #### M [id number] #### [facility] Laboratory [facility] [address] [facility] [place], [address] Laboratory - Chemistry and C hemistry - challengeOrdered By: Jacki Jernigan on 01-13-2025 Glucose Ql (U) Negative [facility] Laboratory - UrinalysisOrder ed By: Jacki Jernigan on 01-13-2025 Protein Ql (U) Negative [facility] [employer] Office Visit Reporton 01-13-2025 [employer] Office Visit Report [facility] [address], [address] [place] [address] OFFICE VISIT Date of Service: 01/13/25 MR#: [id number] Acct: [id number] Name: PATTIE BALDERAS MATEO Rep #: [id number] 2 : 1995 Provider: Dr. Jacki rosales MD Age/Sex: 29/F Location: [facility] Status: Signed Intake Vital Signs 11/20/24 08:47 01/01/25 09:52 01/13/25 14:59 Height 5 ft 4 in 5 ft 4 in 5 ft 4 in Weight: 177 lb 6 oz 180 lb BMI 30.4 30.9 BP 126/80 H 126/80 H Intake Visit Reasons: 36 WK OB Exhibition Specialist Required: No Is patient in pain?: No Allergies gluten Allergy (Verified 01/13/25 14:57) GI upset milk Allergy (Verified 01/13/25 14:57) GI upset tea tree Allergy (Verified 01/13/25 14:57) Hives Medications ???Medication ???Instructions ???Recorded ???Confirmed ???Type cetirizine 10 mg capsule (Zyrtec) 10 mg PO DAILY allergies 10/07/19 01/13/25 History cholecalciferol (vitamin D3) 25 50 mcg PO DAILY supplement 2 01/13/25 History mcg (1,000 unit) capsule (Vitamin D3) magnesium 250 mg tablet 250 mg PO DAILY supplement 2 01/13/25 History citalopram 40 mg tablet 40 mg PO DAILY 10/14/21 01/13/25 H istory buspirone 5 mg tablet 5 mg PO TID 06/21/24 01/13/25 Hist ory docosahexaenoic acid 200 mg mg PO 06/21/24 01/13/25 History capsule ( DHA) ferrous sulfate 325 mg (65 mg 325 mg PO QDAY 12/04/24 01/13/25 H istory iron) tablet Last Menstrual Period: 05/02/24 Zika: Zika virus screening: Negative : No PFSH PFSH Medical History Ischemic hepatitis Allergic contact dermatitis Transaminitis Intestinal metaplasia of stomach without dysplasia Pyloric ulcer Irritable bowel syndrome with constipation Ovarian cyst Migraine headache Syncope Asthma Surgical History Hx of exploratory laparotomy Hx of colonoscopy with polypectomy 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: No pets and animals: Yes pets and animals: dog(s) history of recent travel: Yes ([facility]2023) out of state: Yes out of country: No sexually active: Yes Smoking Status: Never smoker alcohol intake: current alcohol intake frequency: holidays/special occasions only details: Not while substance use type: does not use diet: gluten free and lactose free well-balanced diet: daily or most days caffeine: No eating out: 1-3 times/week during the past year weight has: increased > 10 lbs what type of physical activity do you participate in: walking, yoga and weight training frequency: 1-2 times per week duration: 15-30 minutes/day fredy/faith: Presy[employer]eterian seatbelt use: always do you feel safe at home: Yes 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 OB Visit RADHA Calculator Estimated Delivery Date Method Current WG Current Estimate 02/06/25 LMP (Certain) 36w 4d Other Estimates 02/11/25 Ultrasound #1 35w 6d Expected Delivery Route/Plan Labor Preferences- CB/BF classes: yes labor support person: Mandeep labor intervention preferences: [] pain management options preferred: limited cut cord/dad catch: no : yes PP control planned: discussed discussed possible routes of delivery and associated risks: [] special requests: [] Specific Issue/Plans Covid status: [] Flu vaccine: [] Tdap vaccine: given Rhogam: given 11/20/24 LARC form signed: yes Problem list reviewed and updated with the most current plan of care details and appropriate orders placed. Relevant counseling for the gestational age provided. Continue routine care and follow up unless otherwise noted in visit notes/problem list details Initial Weight: 148 lb Date -???-???-???-???-??? -???-???-???-???-??? -???-???- EGA Weight BP Urine Prot -???-???-???-???-??? -???-???-???-???-??? -???-???- Glucose FHR FuHt Pres Dilation -???-???-???-???-??? -???-???-???-???-??? -???-???- Effaced Feta (more content not included)... Normal [facility] Screening beta-hemolytic Str eptococcus cultureOrdered By: Jacki Jernigan on 01-13-2025 Beta-hemolytic Streptococcus culture Group B Beta Streptococcus is not isolated. [facility] Laboratory - Chemistry and C hemistry - challengeOrdered By: Debra Montalvo on 01-01-2025 Glucose Ql (U) Negative [facility] Laboratory - UrinalysisOrder ed By: Debra Montalvo on 01-01-2025 Protein Ql (U) Negative [facility] [employer] Office Visit Reporton 01-01-2025 [employer] Office Visit Report [facility]'[address], [address] [place] [address] OFFICE VISIT Date of Service: 01/01/25 MR#: [id number] Acct: [id number] Name: PATTIE BALDERAS MATEO Rep #: [id number] : 1995 Provider: LITO Costa ams Age/Sex: 29/F Location: [facility] Status: Signed Intake Vital Signs 11/06/24 10:59 12/18/24 09:42 01/01/25 09:52 Height 5 ft 4 in 5 ft 4 in 5 ft 4 in Weight: 177 lb 6 oz BMI 30.4 BP 126/80 H Intake Visit Reasons: 35wk ob Chief Complaint: 35wk OB Exhibition Specialist Required: No Is patient in pain?: No Allergies gluten Allergy (Verified 01/01/25 09:50) GI upset milk Allergy (Verified 01/01/25 09:50) GI upset tea tree Allergy (Verified 01/01/25 09:50) Hives Medications ???Medication ???Instructions ???Recorded ???Confirmed ???Type cetirizine 10 mg capsule (Zyrtec) 10 mg PO DAILY allergies 10/07/19 01/01/25 History cholecalciferol (vitamin D3) 25 50 mcg PO DAILY supplement 2 01/01/25 History mcg (1,000 unit) capsule (Vitamin D3) magnesium 250 mg tablet 250 mg PO DAILY supplement 2 01/01/25 History citalopram 40 mg tablet 40 mg PO DAILY 10/14/21 01/01/25 H istory buspirone 5 mg tablet 5 mg PO TID 06/21/24 01/01/25 Hist ory docosahexaenoic acid 200 mg mg PO 06/21/24 01/01/25 History capsule ( DHA) ferrous sulfate 325 mg (65 mg 325 mg PO QDAY 12/04/24 01/01/25 H istory iron) tablet Last Menstrual Period: 05/02/24 : No PFSH PFSH Medical History Ischemic hepatitis Allergic contact dermatitis Transaminitis Intestinal metaplasia of stomach without dysplasia Pyloric ulcer Irritable bowel syndrome with constipation Ovarian cyst Migraine headache Syncope Asthma Surgical History Hx of exploratory laparotomy Hx of colonoscopy with polypectomy 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: No pets and animals: Yes pets and animals: dog(s) history of recent travel: [place] [place] out of state: Yes out of country: No sexually active: Yes Smoking Status: Never smoker alcohol intake: current alcohol intake frequency: holidays/special occasions only details: Not while substance use type: does not use diet: gluten free and lactose free well-balanced diet: daily or most days caffeine: No eating out: 1-3 times/week during the past year weight has: increased > 10 lbs what type of physical activity do you participate in: walking, yoga and weight training frequency: 1-2 times per week duration: 15-30 minutes/day fredy/faith: Presybeterian seatbelt use: always do you feel safe at home: Yes additional social history: : 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 OB Visit RADHA Calculator Estimated Delivery Date Method Current WG Current Estimate 02/06/25 LMP (Certain) 34w 6d Other Estimates 02/11/25 Ultrasound #1 34w 1d Expected Delivery Route/Plan Labor Preferences- CB/BF classes: yes labor support person: Mandeep labor intervention preferences: [] pain management options preferred: limited cut cord/dad catch: no : yes PP control planned: discussed discussed possible routes of delivery and associated risks: [] special requests: [] Specific Issue/Plans Covid status: [] Flu vaccine: [] Tdap vaccine: given Rhogam: given 11/20/24 LARC form signed: yes Problem list reviewed and updated with the most current plan of care details and appropriate orders placed. Relevant counseling for the gestational age provided. Continue routine care and follow up unless otherwise noted in visit notes/problem list details Initial Weight: 148 lb Date -???-???-???-???-??? -???-???-???-???-??? -???-???- EGA Weight BP Urine Prot -???-???-???-???-??? -???-???-???-???-??? -???-???- Glucose FHR FuHt Pres Dilation -???-???-???-???-??? -???-???-???-???-??? -???-???- Effaced St Visit Note 07/12/24 -???-???-???-???-??? -??? (more content not included)... Normal [facility] Laboratory - Chemistry and C hemistry - challengeOrdered By: Sherry Barone on 12-18-2024 Glucose Ql (U) Negative [facility] Laboratory - UrinalysisOrder ed By: Sherry Barone on 12-18-2024 Protein Ql (U) Negative [facility] [employer] Office Visit Reporton 12-18-2024 [employer] Office Visit Report [facility]'s [address], [address] [place] [address] OFFICE VISIT Date of Service: 12/18/24 MR#: [id number] Acct: [id number] Name: PATTIE BALDERAS MATEO Rep #: [id number] : 1995 Provider: OSCAR yun Age/Sex: 29/F Location: [facility] Status: Signed Intake Vital Signs 11/06/24 10:59 12/04/24 10:07 12/18/24 09:42 Height 5 ft 4 in 5 ft 4 in 5 ft 4 in Weight: 173 lb 5 oz BMI 29.7 BP 119/80 Intake Visit Reasons: 32 wk ob Chief Complaint: 32 Week OB Exhibition Specialist Required: No Is patient in pain?: No Allergies gluten Allergy (Verified 12/18/24 09:43) GI upset milk Allergy (Verified 12/18/24 09:43) GI upset tea tree Allergy (Verified 12/18/24 09:43) Hives Medications ???Medication ???Instructions ???Recorded ???Confirmed ???Type cetirizine 10 mg capsule (Zyrtec) 10 mg PO DAILY allergies 10/07/19 12/18/24 History cholecalciferol (vitamin D3) 25 50 mcg PO DAILY supplement 2 12/18/24 History mcg (1,000 unit) capsule (Vitamin D3) magnesium 250 mg tablet 250 mg PO DAILY supplement 2 12/18/24 History citalopram 40 mg tablet 40 mg PO DAILY 10/14/21 12/18/24 H istory buspirone 5 mg tablet 5 mg PO TID 06/21/24 12/18/24 Hist ory docosahexaenoic acid 200 mg mg PO 06/21/24 12/18/24 History capsule ( DHA) ferrous sulfate 325 mg (65 mg 325 mg PO QDAY 12/04/24 12/18/24 H istory iron) tablet Last Menstrual Period: 05/02/24 Zika: Zika virus screening: Negative : No PFSH PFSH Medical History Ischemic hepatitis Allergic contact dermatitis Transaminitis Intestinal metaplasia of stomach without dysplasia Pyloric ulcer Irritable bowel syndrome with constipation Ovarian cyst Migraine headache Syncope Asthma Surgical History Hx of exploratory laparotomy Hx of colonoscopy with polypectomy 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/hazards: No pets and animals: Yes pets and animals: dog(s) history of recent travel: Yes ([facility] 2023) out of state: Yes out of country: No sexually active: Yes Smoking Status: Never smoker alcohol intake: current alcohol intake frequency: holidays/special occasions only details: Not while substance use type: does not use diet: gluten free and lactose free well-balanced diet: daily or most days caffeine: No eating out: 1-3 times/week during the past year weight has: increased > 10 lbs what type of physical activity do you participate in: walking, yoga and weight training frequency: 1-2 times per week duration: 15-30 minutes/day fredy/faith: [employer]ian seatbelt use: always do you feel safe at home: Yes additional social history: : 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 OB Visit RADHA Calculator Estimated Delivery Date Method Current WG Current Estimate 02/06/25 LMP (Certain) 32w 6d Other Estimates 02/11/25 Ultrasound #1 32w 1d Expected Delivery Route/Plan Labor Preferences- CB/BF classes: yes labor support person: Mandeep labor intervention preferences: [] pain management options preferred: limited cut cord/dad catch: no : yes PP control planned: discussed discussed possible routes of delivery and associated risks: [] special requests: [] Specific Issue/Plans Covid status: [] Flu vaccine: [] Tdap vaccine: given Rhogam: given 11/20/24 LARC form signed: yes Problem list reviewed and updated with the most current plan of care details and appropriate orders placed. Relevant counseling for the gestational age provided. Continue routine care and follow up unless otherwise noted in visit notes/problem list details Initial Weight: 148 lb Date -???-???-???-???-??? -???-???-???-???-??? -???-???- EGA Weight BP Urine Prot -???-???-???-???-??? -???-???-???-???-??? -???-???- Glucose FHR FuHt Pres Dilation -???-???-???-???-??? -???-???-???-???-??? -???-???- (more content not included)... Normal [facility] Laboratory - Chemistry and C hemistry - challengeOrdered By: Elke Nuñez on 12-04-2024 Glucose Ql (U) Negative [facility] Laboratory - UrinalysisOrder ed By: Elke Nuñez on 12-04-2024 Protein Ql (U) Negative [facility] [employer] Office Visit Reporton 12-04-2024 [employer] Office Visit Report [facility]'s [address], [address] [place] [address] OFFICE VISIT Date of Service: 12/04/24 MR#: [id number] Acct: [id number] Name: PATTIE BALDERAS MATEO Rep #: [id number] : 1995 Provider: Dr. Elke Pike DO Age/Sex: 29/F Location: [facility] Status: Signed Intake Vital Signs 11/06/24 10:59 11/20/24 08:47 12/04/24 10:06 12/04/24 10:07 Height 5 ft 4 in 5 ft 4 in 5 ft 4 in 5 ft 4 in Weight: 168 lb BMI 28.8 BP 107/73 Intake Visit Reasons: 30 wk ob Exhibition Specialist Required: No Is patient in pain?: No Allergies gluten Allergy (Verified 12/04/24 10:06) GI upset milk Allergy (Verified 12/04/24 10:06) GI upset tea tree Allergy (Verified 12/04/24 10:06) Hives Medications ???Medication ???Instructions ???Recorded ???Confirmed ???Type cetirizine 10 mg capsule (Zyrtec) 10 mg PO DAILY allergies 10/07/19 12/04/24 History cholecalciferol (vitamin D3) 25 50 mcg PO DAILY supplement 2 12/04/24 History mcg (1,000 unit) capsule (Vitamin D3) magnesium 250 mg tablet 250 mg PO DAILY supplement 2 12/04/24 History citalopram 40 mg tablet 40 mg PO DAILY 10/14/21 12/04/24 H istory buspirone 5 mg tablet 5 mg PO TID 06/21/24 12/04/24 Hist ory docosahexaenoic acid 200 mg mg PO 06/21/24 12/04/24 History capsule ( DHA) Last Menstrual Period: 05/02/24 Zika: Zika virus screening: Negative : No PFSH PFSH Medical History Ischemic hepatitis Allergic contact dermatitis Transaminitis Intestinal metaplasia of stomach without dysplasia Pyloric ulcer Irritable bowel syndrome with constipation Ovarian cyst Migraine headache Syncope Asthma Surgical History Hx of exploratory laparotomy Hx of colonoscopy with polypectomy 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: No pets and animals: Yes pets and animals: dog(s) history of recent travel: Yes ([facility] 2023) out of state: Yes out of country: No sexually active: Yes Smoking Status: Never smoker alcohol intake: current alcohol intake frequency: holidays/special occasions only details: Not while substance use type: does not use diet: gluten free and lactose free well-balanced diet: daily or most days caffeine: No eating out: 1-3 times/week during the past year weight has: increased > 10 lbs what type of physical activity do you participate in: walking, yoga and weight training frequency: 1-2 times per week duration: 15-30 minutes/day fredy/faith: [employer]ian seatbelt use: always do you feel safe at home: Yes 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 OB Visit RADHA Calculator Estimated Delivery Date Method Current WG Current Estimate 02/06/25 LMP (Certain) 30w 6d Other Estimates 02/11/25 Ultrasound #1 30w 1d Expected Delivery Route/Plan Labor Preferences- CB/BF classes: yes labor support person: Mandeep labor intervention preferences: [] pain management options preferred: limited cut cord/dad catch: no : yes PP control planned: discussed discussed possible routes of delivery and associated risks: [] special requests: [] Specific Issue/Plans Covid status: [] Flu vaccine: [] Tdap vaccine: [] Rhogam: given 11/20/24 LARC form signed: yes Problem list reviewed and updated with the most current plan of care details and appropriate orders placed. Relevant counseling for the gestational age provided. Continue routine care and follow up unless otherwise noted in visit notes/problem list details Initial Weight: 148 lb Date -???-???-???-???-??? -???-???-???-???-??? -???-???- EGA Weight BP Urine Prot -???-???-???-???-??? -???-???-???-???-??? -???-???- Glucose FHR FuHt Pres Dilation -???-???-???-???-??? -???-???-???-???-??? -???-???- Effaced St Visit Note 07/12/24 -???-???-???-???-??? -???-???-???-???-??? -???-???- 10w 1d (more content not included)... Normal [facility] TSH DL <= 0.005 mIU/L QnOrde red By: Elke Nuñez on 12-04-2024 TSH Qn 1.640 uIU/mL 0.300-4.200 [facility] Thyroid Stim Hormone (TSH)on 12-04-2024 TSH 1.640 uIU/mL Normal 0.300-4.200 [facility] Comment on above: Performed By: #### L 856.4258 ####[facility] [id number] [place], [address] Gestational GTT 3HR 100gon 0 11-27-2024 GEST GTT 100gm Normal [facility] Comment on above: Order Comment: Y Result Comment: FAST ING 87 Col: 11/27/24 0659 GLUCOSE TOLERANCE TEST FOR Reference Interval GESTATIONAL DIABETES Fasting <105 mg/dL 1 hour <190 mg/dl 2 hour <165 mg/dl 3 hour <145 mg/dl 1 HR GLU 160 Col: 11/27/24 0842 2 HR GLU 111 Col: 11/27/24 0940 3 HR GLU 123 Col: 11/27/24 1042 Performed By: #### L 212.2606 #### [facility] [address] [place], [place], [id number] Quantitative serum or plasma 3 hour gestational glucose tolerance panelOrdered By: Jacki Jernigan on 11-27-2024 Glucose tolerance 3 hours gestational panel See comment [facility] Comment on above: FASTING 87 Col: 10/16 0659GLUCOSE TOLERANCE TEST FOR Reference Interval GESTATIONAL DIABETES Fasting <105 mg/dL 1 hour <190 mg/dl 2 hour <165 mg/dl 3 hour <145 mg/dl 1 HR GLU 160 Col: 11/27/24 0842 2 HR GLU 111 Col: 11/27/24 0940 3 HR GLU 123 Col: 11/27/24 1042 Absolute lymphocyte countOrd ered By: Jacki Ander on 11-20-2024 Lymphocytes Auto (Unsp spec) [#/Vol] 1.25 10*3/uL 0.83-4.51 [facility] Absolute neutrophil countOrd ered By: Jacki Jernigan on 11-20-2024 Neutrophils (Bld) [#/Vol] 6.7 10*3/uL 2.0-7.7 [facility] Automated lymphocyte count a s percentage of total leukocytesOrdered By: Jacki Jernigan on 11-20-2024 Lymphocytes/100 WBC Auto (Unsp spec) 14.2 % Low 19-41 [facility] Basophil percentageOrdered B y: Jacki Jernigan on 11-20-2024 Basophils/100 WBC (Bld) 0.3 % 0-1 [facility] CBC W/Diff, Automatedon 10-24 Absolute Lymph 1.25 X10 3/uL Normal 0.83-4.51 [facility] Comment on above: Performed By: #### L 3890.6006, L100.0100, BTS, L501.0250, L509.8002 #### [facility] [address] [place], [place], [id number] Absolute Neut 6.7 X10 3/uL Normal 2.0-7.7 [facility] Comment on above: Performed By: #### L 3890.6006, L100.0100, BTS, L501.0250, L509.8002 #### [facility] [address] [place], [address] Basophils/100 WBC (Bld) 0.3 % Normal 0-1 [facility] Comment on above: Performed By: #### L 3890.6006, L100.0100, BTS, L501.0250, L509.8002 #### [facility] [address] [place], [address] Eosinophils/100 WBC (Bld) 1.9 % Normal 0-5 [facility] Comment on above: Performed By: #### L 3890.6006, L100.0100, BTS, L501.0250, L509.8002 #### [facility] [address] [place], [address] Erythrocyte distribution width (RBC) [Ratio] 13.2 % Normal 11.6-14.6 [facility] Comment on above: Performed By: #### L 3890.6006, L100.0100, BTS, L501.0250, L509.8002 #### [facility] [address] [place], [address] Hematocrit (Bld) [Volume fraction] 33.6 % Low 37-47 [facility] Comment on above: Performed By: #### L 3890.6006, L100.0100, BTS, L501.0250, L509.8002 #### [facility] [address] [place], [address] Hemoglobin (Bld) [Mass/Vol] 11.3 g/dL Low 12.0-15.0 [facility] Comment on above: Performed By: #### L 3890.6006, L100.0100, BTS, L501.0250, L509.8002 #### [facility] [address] [place], [address] IG% 2.400 High 0.0-0.9 [facility] Comment on above: Result Comment: IG% - Immature Granulocytes (promyelocytes, myelocytes and metamyelocytes) > 1% indicates that a LEFT SHIFT is Present. Performed By: #### L 3890.6006, L100.0100, BTS, L501.0250, L509.8002 #### [facility] [address] [place], [address] Lymphocytes/100 WBC (Bld) 14.2 % Low 19-41 [facility] Comment on above: Performed By: #### L 3890.6006, L100.0100, BTS, L501.0250, L509.8002 #### [facility] [address] [place], [address] MCH (RBC) [Entitic mass] 30.2 pg Normal 27.0-32.0 [facility] Comment on above: Performed By: #### L 3890.6006, L100.0100, BTS, L501.0250, L509.8002 #### [facility] [address] [place], [address] MCHC (RBC) [Mass/Vol] 33.6 g/dL Normal 32-36 [facility] Comment on above: Performed By: #### L 3890.6006, L100.0100, BTS, L501.0250, L509.8002 #### [facility] [address] [place], [address] MCV (RBC) [Entitic vol] 89.8 fL Normal 81-99 [facility] Comment on above: Performed By: #### L 3890.6006, L100.0100, BTS, L501.0250, L509.8002 #### [facility] [address] [place], [address] Monocytes/100 WBC (Bld) 5.1 % Normal 0-10 [facility] Comment on above: Performed By: #### L 3890.6006, L100.0100, BTS, L501.0250, L509.8002 #### [facility] [address] [place], [address] Neutrophils/100 WBC (Bld) 76.1 % High 47-70 [facility] Comment on above: Performed By: #### L 3890.6006, L100.0100, BTS, L501.0250, L509.8002 #### [facility] [address] [place], [address] Nucleated RBC (Bld) [#/Vol] 0 10*3/uL Normal 0-5 [facility] Comment on above: Performed By: #### L 3890.6006, L100.0100, BTS, L501.0250, L509.8002 #### [facility] [address] [place], [address] Platelet mean volume (Bld) [Entitic vol] 12.3 fL High 6.2-12.0 [facility] Comment on above: Performed By: #### L 3890.6006, L100.0100, BTS, L501.0250, L509.8002 #### [facility] [address] [place], [address] Platelets (Bld) [#/Vol] 165 10*3/uL Normal 150-450 [facility] Comment on above: Performed By: #### L 3890.6006, L100.0100, BTS, L501.0250, L509.8002 #### [facility] [address] [place], [address] RBC (Bld) [#/Vol] 3.74 10*6/uL Low 4.2-5.4 [facility] Comment on above: Performed By: #### L 3890.6006, L100.0100, BTS, L501.0250, L509.8002 #### [facility] [address] [place], [address] RDW SD 43.2 fl Normal 35.1-43.9 [facility] Comment on above: Performed By: #### L 3890.6006, L100.0100, BTS, L501.0250, L509.8002 #### [facility] [address] [place], [address] WBC (Bld) [#/Vol] 8.8 10*3/uL Normal 4.4-11.0 [facility] Comment on above: Performed By: #### L 3890.6006, L100.0100, BTS, L501.0250, L509.8002 #### [facility] [address] [place], [address] Eosinophil percentageOrdered By: Jacki Jernigan on 11-20-2024 Eosinophils/100 WBC (Bld) 1.9 % 0-5 [facility] Erythrocyte distribution wid th ratioOrdered By: Jacki Jernigan on 11-20-2024 Erythrocyte distribution width (RBC) [Ratio] 13.2 % 11.6-14.6 [facility] Erythrocyte distribution wid th standard deviationOrdered By: Jacki Jernigan on 11-20-2024 Erythrocyte distribution width (RBC) [Ratio] 43.2 fl 35.1-43.9 [facility] Glucose Challenge Gest 1H 50 calvin 11-20-2024 GLU GEST 50g 1H 148 mg/dL High 70-140 [facility] Comment on above: Performed By: #### L 3890.6006, L100.0100, BTS, L501.0250, L509.8002 ####[facility] [id number] [place], [address] Glucose measurement at 2 princess rs post-dose gestational glucose tolerance testOrdered By: Jacki Jernigan on 11-20-2024 Glucose [Mass/Vol] 148 mg/dL High 70-140 [facility] HIVon 11-20-2024 HIV Non-Reactive Normal Nonreactive [facility] Comment on above: Result Comment: Non- Reactive Reactive Repeatedly reactive samples must be confirmed according to CDC recommended confirmatory algorithms. The subresults for either HIVAG or AHIV can be used as an aid in the selection of the confirmation algorithm for reactive samples. Send out specimens with Reactive results to [facility] for confirmation. Order the HIV antibody detection and differentiation: [id number] Performed By: #### L 3890.6006, L100.0100, BTS, L501.0250, L509.8002 ####[facility] [id number] [place], [place], [id number] Hematocrit Auto (Bld) [Volum e fraction]Ordered By: Jacki Jernigan on 11-20-2024 Hematocrit (Bld) [Volume fraction] 33.6 % Low 37-47 [facility] Hemoglobin measurementOrdere d By: Jacki Jernigan on 11-20-2024 Hemoglobin (Bld) [Mass/Vol] 11.3 g/dL Low 12.0-15.0 [facility] Immature granulocytes/100 WB C Auto (Bld)Ordered By: Jacki Jernigan on 11-20-2024 Immature granulocytes/100 WBC (Bld) 2.400 % High 0.0-0.9 [facility] Comment on above: IG% - Immature Granu locytes (promyelocytes, myelocytes and metamyelocytes) > 1% indicates that a LEFT SHIFT is Present. Laboratory - Chemistry and C hemistry - challengeOrdered By: Sherry Barone on 11-20-2024 Glucose Ql (U) Negative [facility] Laboratory - UrinalysisOrder ed By: Sherry Barone on 11-20-2024 Protein Ql (U) Negative [facility] MCV (mean corpuscular volume ) determinationOrdered By: Jacki Jernigan on 11-20-2024 MCV (RBC) [Entitic vol] 89.8 fL 81-99 [facility] Mean corpuscular hemoglobin (MCH) determinationOrdered By: Jacki Jernigan on 11-20-2024 MCH (RBC) [Entitic mass] 30.2 pg 27.0-32.0 [facility] Mean corpuscular hemoglobin concentration (MCHC) determinationOrdered By: Jacki Sanchezbill on 11-20-2024 MCHC (RBC) [Mass/Vol] 33.6 g/dL 32-36 [facility] Mean platelet volume determi nationOrdered By: Jacki Danielbill on 11-20-2024 Platelet mean volume (Bld) [Entitic vol] 12.3 fL High 6.2-12.0 [facility] Monocyte percentageOrdered B y: Jacki Jernigan on 11-20-2024 Monocytes/100 WBC (Bld) 5.1 % 0-10 [facility] Neutrophil percentageOrdered By: Jacki Sanchezbill on 11-20-2024 Neutrophils/100 WBC (Bld) 76.1 % High 47-70 [facility] No Panel InformationOrdered By: Jacki Jernigan on 11-20-2024 HIV (1&2) Antibody Non-Reactive Nonreactive [facility] Comment on above: Non-ReactiveReactive Repeatedly reactive samples must be confirmed according to CDC recommended confirmatory algorithms. The subresults for either HIVAG or AHIV can be used as an aid in the selection of the confirmation algorithm for reactive samples.Send out specimens with Reactive results to [facility] for confirmation.Order the HIV antibody detection and differentiation: #[id number] Nucleated red blood cell per centageOrdered By: Jacki Ander on 11-20-2024 Nucleated RBC/100 WBC (Bld) [Ratio] 0 % 0-5 [facility] [employer] Office Visit Reporton 11-20-2024 [employer] Office Visit Report [facility] [address], [address] [place] [address] OFFICE VISIT Date of Service: 11/20/24 MR#: [id number] Acct: [id number] Name: PATTIE BALDERAS MATEO Rep #: [id number] : 1995 Provider: OSCAR yun Age/Sex: 29/F Location: [facility] Status: Signed Intake Vital Signs 09/03/24 09:28 11/06/24 10:59 11/20/24 08:47 Height 5 ft 4 in 5 ft 4 in 5 ft 4 in Weight: 165 lb 4 oz BMI 28.3 BP 110/70 Intake Visit Reasons: 28 WK OB/GLUCOSE Chief Complaint: 28 Week OB/Glucose Exhibition Specialist Required: No Is patient in pain?: No Allergies gluten Allergy (Verified 11/20/24 08:46) GI upset milk Allergy (Verified 11/20/24 08:46) GI upset tea tree Allergy (Verified 11/20/24 08:46) Hives Medications ???Medication ???Instructions ???Recorded ???Confirmed ???Type cetirizine 10 mg capsule (Zyrtec) 10 mg PO DAILY allergies 10/07/19 11/20/24 History cholecalciferol (vitamin D3) 25 50 mcg PO DAILY supplement 2 11/20/24 History mcg (1,000 unit) capsule (Vitamin D3) magnesium 250 mg tablet 250 mg PO DAILY supplement 2 11/20/24 History citalopram 40 mg tablet 40 mg PO DAILY 10/14/21 11/20/24 H istory buspirone 5 mg tablet 5 mg PO TID 06/21/24 11/20/24 Hist ory docosahexaenoic acid 200 mg mg PO 06/21/24 11/20/24 History capsule ( DHA) Last Menstrual Period: 05/02/24 Zika: Zika virus screening: Negative : Yes PFSH PFSH Medical History Ischemic hepatitis Allergic contact dermatitis Transaminitis Intestinal metaplasia of stomach without dysplasia Pyloric ulcer Irritable bowel syndrome with constipation Ovarian cyst Migraine headache Syncope Asthma Surgical History Hx of exploratory laparotomy Hx of colonoscopy with polypectomy 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 current occupational exposures/hazards: No pets and animals: Yes pets and animals: dog(s) history of recent travel: Yes ([facility] 2023) out of state: Yes out of country: No sexually active: Yes Smoking Status: Never smoker alcohol intake: current alcohol intake frequency: holidays/special occasions only details: Not while substance use type: does not use diet: gluten free and lactose free well-balanced diet: daily or most days caffeine: No eating out: 1-3 times/week during the past year weight has: increased > 10 lbs what type of physical activity do you participate in: walking, yoga and weight training frequency: 1-2 times per week duration: 15-30 minutes/day fredy/faith: Presybeterian seatbelt use: always do you feel safe at home: Yes additional social history: : 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 OB Visit RADHA Calculator Estimated Delivery Date Method Current WG Current Estimate 02/06/25 LMP (Certain) 28w 6d Other Estimates 02/11/25 Ultrasound #1 28w 1d Expected Delivery Route/Plan Labor Preferences- CB/BF classes: yes labor support person: Mandeep labor intervention preferences: [] pain management options preferred: limited cut cord/dad catch: no : yes PP control planned: discussed discussed possible routes of delivery and associated risks: [] special requests: [] Specific Issue/Plans Covid status: [] Flu vaccine: [] Tdap vaccine: [] Rhogam: given 11/20/24 LARC form signed: yes Problem list reviewed and updated with the most current plan of care details and appropriate orders placed. Relevant counseling for the gestational age provided. Continue routine care and follow up unless otherwise noted in visit notes/problem list details Initial Weight: 148 lb Date -???-???-???-???-??? -???-???-???-???-??? -???-???- EGA Weight BP Urine Prot -???-???-???-???-??? -???-???-???-???-??? -???-???- Glucose FHR FuHt Pres Dilation -???-???-???-???-??? -???-???-???-???-??? -???-???- Effaced St Visit Note 07/12/24 -???-???-???-???-??? -???-???-? (more content not included)... Normal [facility] Platelet countOrdered By: Daryl Jernigan on 11-20-2024 Platelets (Bld) [#/Vol] 165 10*3/uL 150-450 [facility] RBC Auto (Bld) [#/Vol]Ordere d By: Jacki Jernigan on 11-20-2024 RBC (Bld) [#/Vol] 3.74 10*6/uL Low 4.2-5.4 [facility] Syphilis Antibodieson 2024 Syphilis Abs Non-Reactive Normal Nonreactive [facility] Comment on above: Performed By: #### L 3890.6006, L100.0100, BTS, L501.0250, L509.8002 ####[facility] [id number] [place], [address] Type AND Screenon 11-20-2024 ABO and Rh group Nom (Bld) Blood group O Rh(D) negative Normal [facility] Comment on above: Order Comment: PN Performed By: #### L 3890.6006, L100.0100, BTS, L501.0250, L509.8002 ####[facility] [address] [place], [address] White blood cell (WBC) count Ordered By: Jacki Jernigan on 11-20-2024 WBC (Bld) [#/Vol] 8.8 10*3/uL 4.4-11.0 [facility] Laboratory - Chemistry and C hemistry - challengeOrdered By: Jacki Jernigan on 11-06-2024 Glucose Ql (U) Negative [facility] Laboratory - UrinalysisOrder ed By: Jacki Jernigan on 11-06-2024 Protein Ql (U) Negative [facility] [employer] Office Visit Reporton 11-06-2024 [employer] Office Visit Report [facility] [address], [address] [place] [address] OFFICE VISIT Date of Service: 11/06/24 MR#: [id number] Acct: [id number] Name: PATTIE BALDERAS Rep #: [id number] : 1995 Provider: Dr. Jacki rosales MD Age/Sex: 29/F Location: [facility] Status: Signed Intake Vital Signs 08/06/24 08:50 09/03/24 09:28 09/30/24 15:34 11/06/24 10:59 Height 5 ft 4 in 5 ft 4 in 5 ft 4 in 5 ft 4 in Weight: 161 lb 6 oz BMI 27.6 BP 114/74 Intake Visit Reasons: 26wk ob Exhibition Specialist Required: No Is patient in pain?: No Allergies gluten Allergy (Verified 11/06/24 10:59) GI upset milk Allergy (Verified 11/06/24 10:59) GI upset tea tree Allergy (Verified 11/06/24 10:59) Hives Medications ???Medication ???Instructions ???Recorded ???Confirmed ???Type cetirizine 10 mg capsule (Zyrtec) 10 mg PO DAILY allergies 10/07/19 11/06/24 History cholecalciferol (vitamin D3) 25 50 mcg PO DAILY supplement 2 11/06/24 History mcg (1,000 unit) capsule (Vitamin D3) magnesium 250 mg tablet 250 mg PO DAILY supplement 2 11/06/24 History citalopram 40 mg tablet 40 mg PO DAILY 10/14/21 11/06/24 H istory buspirone 5 mg tablet 5 mg PO TID 06/21/24 11/06/24 Hist ory docosahexaenoic acid 200 mg mg PO 06/21/24 11/06/24 History capsule ( DHA) Last Menstrual Period: 05/02/24 Zika: Zika virus screening: Negative : No PFSH PFSH Medical History Ischemic hepatitis Allergic contact dermatitis Transaminitis Intestinal metaplasia of stomach without dysplasia Pyloric ulcer Irritable bowel syndrome with constipation Ovarian cyst Migraine headache Syncope Asthma Surgical History Hx of exploratory laparotomy Hx of colonoscopy with polypectomy 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/hazards: No pets and animals: Yes pets and animals: dog(s) history of recent travel: Yes ([facility] 2023) out of state: Yes out of country: No sexually active: Yes Smoking Status: Never smoker alcohol intake: current alcohol intake frequency: holidays/special occasions only details: Not while substance use type: does not use diet: gluten free and lactose free well-balanced diet: daily or most days caffeine: No eating out: 1-3 times/week during the past year weight has: increased > 10 lbs what type of physical activity do you participate in: walking, yoga and weight training frequency: 1-2 times per week duration: 15-30 minutes/day fredy/faith: Presybeterian seatbelt use: always do you feel safe at home: Yes 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 OB Visit RADHA Calculator Estimated Delivery Date Method Current WG Current Estimate 02/06/25 LMP (Certain) 26w 6d Other Estimates 02/11/25 Ultrasound #1 26w 1d Expected Delivery Route/Plan Labor Preferences- CB/BF classes: [] labor support person: [] labor intervention preferences: [] pain management options preferred: [] cut cord/dad catch: [] : [] PP control planned: [] discussed possible routes of delivery and associated risks: [] special requests: [] Specific Issue/Plans Covid status: [] Flu vaccine: [] Tdap vaccine: [] Rhogam: [] LARC form signed: [] Problem list reviewed and updated with the most current plan of care details and appropriate orders placed. Relevant counseling for the gestational age provided. Continue routine care and follow up unless otherwise noted in visit notes/problem list details Initial Weight: 148 lb Date -???-???-???-???-??? -???-???-???-???-??? -???-???- EGA Weight BP Urine Prot -???-???-???-???-??? -???-???-???-???-??? -???-???- Glucose FHR FuHt Pres Dilation -???-???-???-???-??? -???-???-???-???-??? -???-???- Effaced St Visit Note 07/12/24 -???-???-???-???-??? -???-???-???-???-??? -???-???- 10w 1d 148 lb 8 oz (+8 oz) 112/72 -?? (more content not included)... Normal [facility] Progress Noteon 10-11-2024 Cook Vacuum Kettle Authentication Interface Message Text [facility] - NEW PATIENT ASSESSMENT: I am pleased to report that today's echocardiogram was normal. There is no evidence of cardiovascular disease. Following the echocardiogram, I met with Ms. Balderas to discuss today's findings and recommendations. I reviewed the normal cardiac anatomy, and explained that there is no evidence of significant cardiac disease in the fetus. I explained the limitations of echocardiography in general, including our inability to rule out mild valve abnormalities, smaller VSDs, certain aortic arch abnormalities, and persistent patency of the ductus arteriosus or the interatrial communication after . PLAN: Follow-up appointment, Heart Center: As needed. Preferred delivery location: No preference After , follow-up with Pediatric Cardiology: 1-2 months after due to the family history of congenital heart disease (Father - VSD; unrepaired). SUBJECTIVE: We had the pleasure of seeing Pattie Balderas in Cardiology at the [facility] [place] on 10/11/2024 at the request of Dr. Jacki Jernigan. Ms. Balderas was referred due to a family history of congenital heart diease (Father - VSD; unrepaired, Paternal Unlce - VSD; repaired, Grandmother - VSD). Obstetric History: Ms. Balderas is 1 para 0 at 23 1/7 wga with estimated due date 02/06/2025. Number of fetuses: 1 - male Delivery Hospital, preferred: [employer] Past medical history: Past Medical History: Diagnosis Date Adopted Current medications: Medications Ordered Prior to Encounter[1] Allergies: Allergies[2] Family history: The family history was reviewed and is otherwise negative for congenital heart disease, sudden unexplained , arrhythmia. Social History: Pattie Balderas lives with her family in [place], [place]. OBJECTIVE: Echocardiogram (10/11/2024): Normal. See Epic for full results. Maternal BMI: Body mass index is 26.61 kg/m . Total encounter time was 20 minutes, which includes chart review, counseling, documentation and/or coordination of care. This is separate from the time spent performing and interpreting the echocardiogram. Portions of this medical record have been created using voice recognition software and may have minor errors which are inherent in voice recognition systems. Elizabeth Urena DO (he/him/his) Data Conversion Operator [place] [address] Toll-Free: [email or web address] [1] Current Outpatient Medications on File Prior to Visit Medication Sig Dispense Refill multivitamin (TRINATAL RX) tablet Take by mouth daily cetirizine (ZYRTEC) 10 MG tablet Take by mouth daily FLUoxetine (PROZAC) 20 MG capsule Take by mouth busPIRone (BUSPAR) 5 MG tablet Take 1 Tablet (5 mg) by mouth 3 times daily No current facility-administere d medications on file prior to visit. 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 Office Visit Report [facility] [address], [address] [place] [address] OFFICE VISIT Date of Service: 09/30/24 MR#: [id number] Acct: [id number] Name: PATTIE BALDERAS MATEO Rep #: [id number] : 1995 Provider: [facility] Age/Sex: 29/F Location: [facility] Status: Signed Intake Vital Signs 08/06/24 08:50 09/03/24 09:28 09/30/24 15:34 Height 5 ft 4 in 5 ft 4 in 5 ft 4 in Weight: 158 lb 2 oz BMI 27.1 BP 114/77 Intake Visit Reasons: 21wk ob Exhibition Specialist Required: No Is patient in pain?: No Allergies gluten Allergy (Verified 09/30/24 15:35) GI upset milk Allergy (Verified 09/30/24 15:35) GI upset tea tree Allergy (Verified 09/30/24 15:35) Hives Medications ???Medication ???Instructions ???Recorded ???Confirmed ???Type cetirizine 10 mg capsule (Zyrtec) 10 mg PO DAILY allergies 10/07/19 09/30/24 History cholecalciferol (vitamin D3) 25 50 mcg PO DAILY supplement 2 09/30/24 History mcg (1,000 unit) capsule (Vitamin D3) magnesium 250 mg tablet 250 mg PO DAILY supplement 2 09/30/24 History citalopram 40 mg tablet 40 mg PO DAILY 10/14/21 09/30/24 H istory buspirone 5 mg tablet 5 mg PO TID 06/21/24 09/30/24 Hist ory docosahexaenoic acid 200 mg mg PO 06/21/24 09/30/24 History capsule ( DHA) Last Menstrual Period: 05/02/24 Zika: Zika virus screening: Negative : No PFSH PFSH Medical History Ischemic hepatitis Allergic contact dermatitis Transaminitis Intestinal metaplasia of stomach without dysplasia Pyloric ulcer Irritable bowel syndrome with constipation Ovarian cyst Migraine headache Syncope Asthma Surgical History Hx of exploratory laparotomy Hx of colonoscopy with polypectomy 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: No pets and animals: Yes pets and animals: dog(s) history of recent travel: Yes ([facility] 2023) out of state: Yes out of country: No sexually active: Yes Smoking Status: Never smoker alcohol intake: current alcohol intake frequency: holidays/special occasions only details: Not while substance use type: does not use diet: gluten free and lactose free well-balanced diet: daily or most days caffeine: No eating out: 1-3 times/week during the past year weight has: increased > 10 lbs what type of physical activity do you participate in: walking, yoga and weight training frequency: 1-2 times per week duration: 15-30 minutes/day fredy/faith: Presybeterian seatbelt use: always do you feel safe at home: Yes 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 OB Visit RADHA Calculator Estimated Delivery Date Method Current WG Current Estimate 02/06/25 LMP (Certain) 21w 4d Other Estimates 02/11/25 Ultrasound #1 20w 6d Expected Delivery Route/Plan Labor Preferences- CB/BF classes: [] labor support person: [] labor intervention preferences: [] pain management options preferred: [] cut cord/dad catch: [] : [] PP control planned: [] discussed possible routes of delivery and associated risks: [] special requests: [] Specific Issue/Plans Covid status: [] Flu vaccine: [] Tdap vaccine: [] Rhogam: [] LARC form signed: [] Problem list reviewed and updated with the most current plan of care details and appropriate orders placed. Relevant counseling for the gestational age provided. Continue routine care and follow up unless otherwise noted in visit notes/problem list details Initial Weight: 148 lb Date -???-???-???-???-??? -???-???-???-???-??? -???-???- EGA Weight BP Urine Prot -???-???-???-???-??? -???-???-???-???-??? -???-???- Glucose FHR FuHt Pres Dilation -???-???-???-???-??? -???-???-???-???-??? -???-???- Effaced St Visit Note 07/12/24 -???-???-???-???-??? -???-???-???-???-??? -???-???- 10w 1d 148 lb 8 oz (+8 oz) 112/72 -???-???-???-???-??? -???-???-???-???-??? -??? (more content not included)... Normal [facility] Laboratory - Chemistry and C hemistry - challengeOrdered By: Jacki Jernigan on 09-03-2024 Glucose Ql (U) Negative [facility] Laboratory - UrinalysisOrder ed By: Jacki Jernigan on 09-03-2024 Protein Ql (U) Negative [facility] [employer] Office Visit Reporton 09-03-2024 [employer] Office Visit Report [facility] [address], [address] [place] [address] OFFICE VISIT Date of Service: 09/03/24 MR#: [id number] Acct: [id number] Name: PATTEI BALDERAS Rep #: [id number] : 1995 Provider: Dr. Jacki rosales MD Age/Sex: 29/F Location: [facility] Status: Signed Intake Vital Signs 07/12/24 08:55 08/06/24 08:50 09/03/24 09:28 Height 5 ft 4 in 5 ft 4 in 5 ft 4 in Weight: 148 lb 2 oz 150 lb 2 oz BMI 25.4 25.7 BP 118/74 120/73 Intake Visit Reasons: 17wk ob Exhibition Specialist Required: No Is patient in pain?: No Feel stressed/tense/nervo us/anxious/difficult y sleeping: not at all Allergies gluten Allergy (Verified 09/03/24 09:29) GI upset milk Allergy (Verified 09/03/24 09:29) GI upset tea tree Allergy (Verified 09/03/24 09:29) Hives Medications ???Medication ???Instructions ???Recorded ???Confirmed ???Type cetirizine 10 mg capsule (Zyrtec) 10 mg PO DAILY allergies 10/07/19 09/03/24 History cholecalciferol (vitamin D3) 25 50 mcg PO DAILY supplement 2 09/03/24 History mcg (1,000 unit) capsule (Vitamin D3) magnesium 250 mg tablet 250 mg PO DAILY supplement 2 09/03/24 History citalopram 40 mg tablet 40 mg PO DAILY 10/14/21 09/03/24 H istory buspirone 5 mg tablet 5 mg PO TID 06/21/24 09/03/24 Hist ory docosahexaenoic acid 200 mg mg PO 06/21/24 09/03/24 History capsule ( DHA) Last Menstrual Period: 05/02/24 Zika: Zika virus screening: Negative : No PFSH PFSH Medical History Ischemic hepatitis Allergic contact dermatitis Transaminitis Intestinal metaplasia of stomach without dysplasia Pyloric ulcer Irritable bowel syndrome with constipation Ovarian cyst Migraine headache Syncope Asthma Surgical History Hx of exploratory laparotomy Hx of colonoscopy with polypectomy 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: No pets and animals: Yes pets and animals: dog(s) history of recent travel: Yes ([facility] 2023) out of state: Yes out of country: No sexually active: Yes Smoking Status: Never smoker alcohol intake: current alcohol intake frequency: holidays/special occasions only details: Not while substance use type: does not use diet: gluten free and lactose free well-balanced diet: daily or most days caffeine: No eating out: 1-3 times/week during the past year weight has: increased > 10 lbs what type of physical activity do you participate in: walking, yoga and weight training frequency: 1-2 times per week duration: 15-30 minutes/day fredy/faith: Presybeterian seatbelt use: always do you feel safe at home: Yes additional social history: : 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 OB Visit RADHA Calculator Estimated Delivery Date Method Current WG Current Estimate 02/06/25 LMP (Certain) 17w 5d Other Estimates 02/11/25 Ultrasound #1 17w 0d Expected Delivery Route/Plan Labor Preferences- CB/BF classes: [] labor support person: [] labor intervention preferences: [] pain management options preferred: [] cut cord/dad catch: [] : [] PP control planned: [] discussed possible routes of delivery and associated risks: [] special requests: [] Specific Issue/Plans Covid status: [] Flu vaccine: [] Tdap vaccine: [] Rhogam: [] LARC form signed: [] Problem list reviewed and updated with the most current plan of care details and appropriate orders placed. Relevant counseling for the gestational age provided. Continue routine care and follow up unless otherwise noted in visit notes/problem list details Initial Weight: 148 lb Date -???-???-???-???-??? -???-???-???-???-??? -???-???- EGA Weight BP Urine Prot -???-???-???-???-??? -???-???-???-???-??? -???-???- Glucose FHR FuHt Pres Dilation -???-???-???-???-??? -???-???-???-???-??? -???-???- Effaced St Visit Note 07/12/24 -???-???-???-???-??? -???-???-??? (more content not included)... Normal [facility]10[facility]2024 [facility] Comment on above: Order Comment: [id number] 0HCV GENOSURE Result Comment: TEST RESULTS LIMITS HCV GenoSure(R) NS3/4A HCV GenoSure(R) NS3/4A PDF HCV GenoSure(R) NS3/4A See comments HCV GenoSure(TM) NS3/4A HCV GenoSure(TM) NS3/4A Result: Non-Reportable HCV Genotype: Not Available Mutational analysis of the specified region could not be obtained. The most common reasons for failure are insufficient viral load, primer incompatibility, incorrect genotype/subtype submission (must be 1a or 1b), and the presence of inhibitory substances in the sample. If you would like to add on HCV Genotype (subtype) or HCV RT-PCR Quant, or if you have any questions please contact our Client Services Department at . HCV GenoSure(R) NS3/4A Interp For more information on interpreting this report, please call [employer] Customer Service at [phone] between the hours of 6:30am to 5:00pm [place] Time Monday through Monday. REMINDER: To Ensure High-Quality Results on All Samples - Verify Viral Load is Sufficient Before Ordering. - Draw 3.0 mL Plasma (PPT or EDTA Tube). - Spin Sample Immediately at 1603-2224 x g. - Don't Leave Samples in Centrifuge After Spinning. - Aliquot Plasma from EDTA Tubes (if used). - Freeze Sample Immediately at -20 degrees C. - Give Intelligent Systems Engineer Only Fully Frozen Samples. This assay is performed using a next-generation sequencing platform that analyzes the specified non-structural coding regions of HCV. Variants are reported at a sensitivity that has been demonstrated to be equivalent to that of Dante/population sequencing. Genotype assignment is determined from the sequence of the specified regions that are derived using subtype specific methodology, and should not be used to establish or confirm the HCV genotype. HCV genotype determination should only be done with an assay intended for that purpose. This assay was validated by testing samples with viral loads equal to or above 2000 IU/mL and should be interpreted only on such specimens. This test was developed and its performance characteristics determined by [employer]. It has not been cleared or approved by the Food and Drug Administration. [employer] is a subsidiary of [employer], using the brand [employer]. The results should not be used as the sole criteria for patient management. This document contains private and confidential health information protected by state and federal law. If you have received this document in error, please call [phone]. TESTING PERFORMED AT [facility]. ORIGINAL REPORT ON FILE IN LAB CONTAINS ADDITIONAL TEST SITE INFORMATION. Performed By: #### M 100.2200, L7000.1800, L3410.9998 ####[facility] [address] [place], [address] Laboratory - Chemistry and C hemistry - challengeOrdered By: Elke Nuñez on 08-06-2024 Glucose Ql (U) Negative [facility] Laboratory - UrinalysisOrder ed By: Elke Nuñez on 08-06-2024 Protein Ql (U) Negative [facility] [employer] Office Visit Reporton 08-06-2024 [employer] Office Visit Report [facility]'s [address], [address] [place] [address] OFFICE VISIT Date of Service: 08/06/24 MR#: [id number] Acct: [id number] Name: PATTIE BALDERAS MATEO Rep #: [id number] : 1995 Provider: Dr. Elke Pike DO Age/Sex: 29/F Location: [facility] Status: Signed Intake Vital Signs 07/06/23 08:00 07/24/24 08:53 08/06/24 08:50 Height 5 ft 4 in 5 ft 4 in 5 ft 4 in Weight: 148 lb 2 oz BMI 25.4 BP 118/74 Intake Visit Reasons: 13wk ob Exhibition Specialist Required: No Is patient in pain?: No Allergies gluten Allergy (Verified 08/06/24 08:54) GI upset milk Allergy (Verified 08/06/24 08:54) GI upset tea tree Allergy (Verified 08/06/24 08:54) Hives Medications ???Medication ???Instructions ???Recorded ???Confirmed ???Type cetirizine 10 mg capsule (Zyrtec) 10 mg PO DAILY allergies 10/07/19 08/06/24 History cholecalciferol (vitamin D3) 25 50 mcg PO DAILY supplement 2 08/06/24 History mcg (1,000 unit) capsule (Vitamin D3) magnesium 250 mg tablet 250 mg PO DAILY supplement 2 08/06/24 History citalopram 40 mg tablet 40 mg PO DAILY 10/14/21 08/06/24 H istory buspirone 5 mg tablet 5 mg PO TID 06/21/24 08/06/24 Hist ory docosahexaenoic acid 200 mg mg PO 06/21/24 08/06/24 History capsule ( DHA) Last Menstrual Period: 05/02/24 Zika: Zika virus screening: Negative : No PFSH PFSH Medical History Ischemic hepatitis Allergic contact dermatitis Transaminitis Intestinal metaplasia of stomach without dysplasia Pyloric ulcer Irritable bowel syndrome with constipation Ovarian cyst Migraine headache Syncope Asthma Surgical History Hx of exploratory laparotomy Hx of colonoscopy with polypectomy 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: No pets and animals: Yes pets and animals: dog(s) history of recent travel: Yes ([facility]) out of state: Yes out of country: No sexually active: Yes Smoking Status: Never smoker alcohol intake: current alcohol intake frequency: holidays/special occasions only details: Not while substance use type: does not use diet: gluten free and lactose free well-balanced diet: daily or most days caffeine: No eating out: 1-3 times/week during the past year weight has: increased > 10 lbs what type of physical activity do you participate in: walking, yoga and weight training frequency: 1-2 times per week duration: 15-30 minutes/day fredy/faith: Presybeterian seatbelt use: always do you feel safe at home: Yes additional social history: : 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 OB Visit RADHA Calculator Estimated Delivery Date Method Current WG Current Estimate 02/06/25 LMP (Certain) 13w 5d Other Estimates 02/11/25 Ultrasound #1 13w 0d Expected Delivery Route/Plan Labor Preferences- CB/BF classes: [] labor support person: [] labor intervention preferences: [] pain management options preferred: [] cut cord/dad catch: [] : [] PP control planned: [] discussed possible routes of delivery and associated risks: [] special requests: [] Specific Issue/Plans Covid status: [] Flu vaccine: [] Tdap vaccine: [] Rhogam: [] LARC form signed: [] Problem list reviewed and updated with the most current plan of care details and appropriate orders placed. Relevant counseling for the gestational age provided. Continue routine care and follow up unless otherwise noted in visit notes/problem list details Initial Weight: 148 lb Date -???-???-???-???-??? -???-???-???-???-??? -???-???- EGA Weight BP Urine Prot -???-???-???-???-??? -???-???-???-???-??? -???-???- Glucose FHR FuHt Pres Dilation -???-???-???-???-??? -???-???-???-???-??? -???-???- Effaced St Visit Note 07/12/24 -???-???-???-???-??? -???-???-???-???-??? -???-???- 10w 1d 148 lb 8 oz (+8 oz) 112/72 -???-???-???-???-??? -???-? (more content not included)... Normal [facility] 12 Lead EKGon 07-29-[address] [facility] [address] [place] [address] 12 Lead EKG 07/29/24 0858 MR#: [id number] Acct: [id number] Name: PATTIE BALDERAS MATEO Rep #: [id number] : 1995 29 From: Dequan Alejandra MD Attending Dr: Dr. Jacki Jernigan MD Status: REG CLI Ordering Dr: Jacki Jernigan MD Date: 07/29/24 Location: [facility] Sex: F C Admitted: Test Reason : PALPITATIONS Blood Pressure : */* mmHG Vent. Rate : 90 BPM Atrial Rate : 90 BPM P-R Int : 114 ms QRS Dur : 90 ms QT Int : 370 ms P-R-T Axes : 65 65 22 degrees QTcB Int : 452 ms Normal sinus rhythm Normal ECG Confirmed by [place] CASTANEDA, DEQUAN ([id number]), features editor NAVIN SCOTT ([id number]) on 07/29/2024 2:01:12 PM Referred By: Jacki Jernigan Confirmed By: DEQUAN ALEJANDRA MD 07/29/24 140 Date Dequan Alejandra MD CC: CODING QUALITY ANALYST-C Eliud Peñaloza; Dr. Jacki Jernigan MD Signed [facility] Electrocardiogram reportOrde red By: Dequan Alejandra on 07-29-[address] [facility] [address] [place] [address] 12 Lead EKG 07/29/24 0858 MR#: [id number] Acct: [id number] Name: PATTIE BALDERAS MATEO Rep #:[id number] : 1995 29 From: Dequan Alejandra MD Attending Dr: Dr. Jacki Jernigan MD Status: REG CLI Ordering Dr: Jacki Jernigan MD Sanchez e: 07/29/24 Location: [facility] Sex: F C Admitted: Test Reason : PALPITATIONS Blood Pressure : */* mmHG Vent. Rate : 90 BPM Atrial Rate : 90 BPM P-R Int : 114 ms QRS Dur : 90 ms QT Int : 370 ms P-R-T Axes : 65 65 22 degrees QTcB Int : 452 ms Normal sinus rhythm Normal ECG Confirmed by DEQUAN ALEJANDRA MD ([id number]), features editor NAVIN SCOTT ([id number]) on 07/29/2024 2:01:12 PM Referred By: Jacki Jernigan Confirmed By: DEQUAN ALEJANDRA MD 07/29/24 1401 Date _ Dequan Alejandra MD CC: CODING QUALITY ANALYST-C Eliud Peñaloza; Dr. Jacki Jernigan MD ~ Signed [facility] Work Phone: Laboratory - Chemistry and C hemistry - challengeOrdered By: Jacki Jernigan on 07-24-2024 Glucose Ql (U) Negative [facility] Laboratory - UrinalysisOrder ed By: Jacki Jernigan on 07-24-2024 Protein Ql (U) Trace [facility] [employer] Office Visit Reporton 07-24-2024 [employer] Office Visit Report [facility] [address], [address] [place] [address] OFFICE VISIT Date of Service: 07/24/24 MR#: [id number] Acct: [id number] Name: PATTIE BALDERAS MATEO Rep #: [id number] : 1995 Provider: Dr. Jacki rosaels MD Age/Sex: 29/F Location: [facility] Status: Signed Intake Vital Signs 07/12/24 08:55 07/24/24 08:53 Height 5 ft 4 in 5 ft 4 in Weight: 148 lb 4 oz BMI 25.4 BP 112/72 Pulse 92 Intake Visit Reasons: OB, palpitations Exhibition Specialist Required: No Is patient in pain?: No Feel stressed/tense/nervo us/anxious/difficult y sleeping: not at all (anxiety well managed) Allergies gluten Allergy (Verified 07/24/24 08:53) GI upset milk Allergy (Verified 07/24/24 08:53) GI upset tea tree Allergy (Verified 07/24/24 08:53) Hives Medications ???Medication ???Instructions ???Recorded ???Confirmed ???Type cetirizine 10 mg capsule (Zyrtec) 10 mg PO DAILY allergies 10/07/19 07/24/24 History cholecalciferol (vitamin D3) 25 50 mcg PO DAILY supplement 2 07/24/24 History mcg (1,000 unit) capsule (Vitamin D3) magnesium 250 mg tablet 250 mg PO DAILY supplement 2 07/24/24 History citalopram 40 mg tablet 40 mg PO DAILY 10/14/21 07/24/24 H istory buspirone 5 mg tablet 5 mg PO TID 06/21/24 07/24/24 Hist ory docosahexaenoic acid 200 mg mg PO 06/21/24 07/24/24 History capsule ( DHA) Last Menstrual Period: 05/02/24 Zika: Zika virus screening: Negative : No PFSH PFSH Medical History Ischemic hepatitis Allergic contact dermatitis Transaminitis Intestinal metaplasia of stomach without dysplasia Pyloric ulcer Irritable bowel syndrome with constipation Ovarian cyst Migraine headache Syncope Asthma Surgical History Hx of exploratory laparotomy Hx of colonoscopy with polypectomy 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/hazards: No pets and animals: Yes pets and animals: dog(s) history of recent travel: Yes ([place] 2023) out of state: Yes out of country: No sexually active: Yes Smoking Status: Never smoker alcohol intake: current alcohol intake frequency: holidays/special occasions only details: Not while substance use type: does not use diet: gluten free and lactose free well-balanced diet: daily or most days caffeine: No eating out: 1-3 times/week during the past year weight has: increased > 10 lbs what type of physical activity do you participate in: walking, yoga and weight training frequency: 1-2 times per week duration: 15-30 minutes/day fredy/faith: [employer]eterian seatbelt use: always do you feel safe at home: Yes additional social history: : 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 OB Visit RADHA Calculator Estimated Delivery Date Method Current WG Current Estimate 02/06/25 LMP (Certain) 11w 6d Other Estimates 02/11/25 Ultrasound #1 11w 1d Expected Delivery Route/Plan Labor Preferences- CB/BF classes: [] labor support person: [] labor intervention preferences: [] pain management options preferred: [] cut cord/dad catch: [] : [] PP control planned: [] discussed possible routes of delivery and associated risks: [] special requests: [] Specific Issue/Plans Covid status: [] Flu vaccine: [] Tdap vaccine: [] Rhogam: [] LARC form signed: [] Problem list reviewed and updated with the most current plan of care details and appropriate orders placed. Relevant counseling for the gestational age provided. Continue routine care and follow up unless otherwise noted in visit notes/problem list details Initial Weight: 148 lb Date -???-???-???-???-??? -???-???-???-???-??? -???-???- EGA Weight BP Urine Prot -???-???-???-???-??? -???-???-???-???-??? -???-???- Glucose FHR FuHt Pres Dilation -???-???-???-???-??? -???-???-???-???-??? -???-???- Effaced St Visit Note 07/12/24 -???-???-???-???-??? -???-???- (more content not included)... Normal [facility] L3410.9998on 07-16-2024 [facility] Misc. COMMENT Normal . [facility] Comment on above: Order Comment: [id number] 0TSH RECEPTOR AB SERUM FZ Performed By: #### L 509.4006, L3890.6301, L100.0100, L3890.6006, BTS, L3410.9998, L509.8002, L506.0400, L501.9520, L3890.6102 ####[facility] [address] [place], [address] Chlamydia/GC AMPARO aptimaon CHLAMY,NUC ACID Negative Normal Negative [facility] Comment on above: Performed By: #### M 100.2200, L7000.1800, L3410.9998 ####[facility] [address] [place], [address] GC BY NUC ACID Negative Normal Negative [facility] Comment on above: Result Comment: Perf ormed at: =G - [facility] [address] [id number] Maintenance Groundman: Rani Rebolledo MD, Phone: [phone] Performed By: #### M 100.2200, L7000.1800, L3410.9998 ####[facility] [address] [place], [address] Urine Cultureon 07-14-2024 [facility] Mixed Gram Positive Organisms [place] Count 11,000-25,000 MIXC Mixed contaminants. Submit a new specimen if indicated. Normal [facility] Comment on above: Performed By: #### M 100.2200, L7000.1800, L3410.9998 ####[facility] [address] [place], [address] Absolute lymphocyte countOrd ered By: Debra Elan on 07-12-2024 Lymphocytes Auto (Unsp spec) [#/Vol] 1.39 10*3/uL 0.83-4.51 [facility] Absolute neutrophil countOrd ered By: Debra Montalvo on 07-12-2024 Neutrophils (Bld) [#/Vol] 5.7 10*3/uL 2.0-7.7 [facility] Automated lymphocyte count a s percentage of total leukocytesOrdered By: Debra Montalvo on 07-12-2024 Lymphocytes/100 WBC Auto (Unsp spec) 17.6 % Low 19-41 [facility] Basophil percentageOrdered B y: Debra Elan on 07-12-2024 Basophils/100 WBC (Bld) 0.6 % 0-1 [facility] C. trachomatis rRNA AMPARO+prob e Ql (Unsp spec)Ordered By: Debra Montalvo on 07-12-2024 Chlamydia DNA (AMPARO) Negative Negative [facility] CBC W/Diff, Automatedon 03-2 Absolute Lymph 1.39 X10 3/uL Normal 0.83-4.51 [facility] Comment on above: Performed By: #### L 509.4006, L3890.6301, L100.0100, L3890.6006, BTS, L3410.9998, L509.8002, L506.0400, L501.9520, L3890.6102 ####[facility] [address] [place], [place], [id number] Absolute Neut 5.7 X10 3/uL Normal 2.0-7.7 [facility] Comment on above: Performed By: #### L 509.4006, L3890.6301, L100.0100, L3890.6006, BTS, L3410.9998, L509.8002, L506.0400, L501.9520, L3890.6102 ####[facility] [address] [place], [address] Basophils/100 WBC (Bld) 0.6 % Normal 0-1 [facility] Comment on above: Performed By: #### L 509.4006, L3890.6301, L100.0100, L3890.6006, BTS, L3410.9998, L509.8002, L506.0400, L501.9520, L3890.6102 ####[facility] [address] [place], [address] Eosinophils/100 WBC (Bld) 2.0 % Normal 0-5 [facility] Comment on above: Performed By: #### L 509.4006, L3890.6301, L100.0100, L3890.6006, BTS, L3410.9998, L509.8002, L506.0400, L501.9520, L3890.6102 ####[facility] [address] [place], [place], [phone] Erythrocyte distribution width (RBC) [Ratio] 12.4 % Normal 11.6-14.6 [facility] Comment on above: Performed By: #### L 509.4006, L3890.6301, L100.0100, L3890.6006, BTS, L3410.9998, L509.8002, L506.0400, L501.9520, L3890.6102 ####[facility] [address] [place], [address] Hematocrit (Bld) [Volume fraction] 41.9 % Normal 37-47 [facility] Comment on above: Performed By: #### L 509.4006, L3890.6301, L100.0100, L3890.6006, BTS, L3410.9998, L509.8002, L506.0400, L501.9520, L3890.6102 ####[facility] [address] [place], [address] Hemoglobin (Bld) [Mass/Vol] 14.4 g/dL Normal 12.0-15.0 [facility] Comment on above: Performed By: #### L 509.4006, L3890.6301, L100.0100, L3890.6006, BTS, L3410.9998, L509.8002, L506.0400, L501.9520, L3890.6102 ####[facility] [address] [place], [address] IG% 0.400 Normal 0.0-0.9 [facility] Comment on above: Result Comment: IG% - Immature Granulocytes (promyelocytes, myelocytes and metamyelocytes) > 1% indicates that a LEFT SHIFT is Present. Performed By: #### L 509.4006, L3890.6301, L100.0100, L3890.6006, BTS, L3410.9998, L509.8002, L506.0400, L501.9520, L3890.6102 ####[facility] [address] [place], [address] Lymphocytes/100 WBC (Bld) 17.6 % Low 19-41 [facility] Comment on above: Performed By: #### L 509.4006, L3890.6301, L100.0100, L3890.6006, BTS, L3410.9998, L509.8002, L506.0400, L501.9520, L3890.6102 ####[facility] [address] [place], [address] MCH (RBC) [Entitic mass] 30.3 pg Normal 27.0-32.0 [facility] Comment on above: Performed By: #### L 509.4006, L3890.6301, L100.0100, L3890.6006, BTS, L3410.9998, L509.8002, L506.0400, L501.9520, L3890.6102 ####[facility] [address] [place], [address] MCHC (RBC) [Mass/Vol] 34.4 g/dL Normal 32-36 [facility] Comment on above: Performed By: #### L 509.4006, L3890.6301, L100.0100, L3890.6006, BTS, L3410.9998, L509.8002, L506.0400, L501.9520, L3890.6102 ####[facility] [address] [place], [address] MCV (RBC) [Entitic vol] 88.2 fL Normal 81-99 [facility] Comment on above: Performed By: #### L 509.4006, L3890.6301, L100.0100, L3890.6006, BTS, L3410.9998, L509.8002, L506.0400, L501.9520, L3890.6102 ####[facility] [address] [place], [address] Monocytes/100 WBC (Bld) 7.0 % Normal 0-10 [facility] Comment on above: Performed By: #### L 509.4006, L3890.6301, L100.0100, L3890.6006, BTS, L3410.9998, L509.8002, L506.0400, L501.9520, L3890.6102 ####[facility] [address] [place], [address] Neutrophils/100 WBC (Bld) 72.4 % High 47-70 [facility] Comment on above: Performed By: #### L 509.4006, L3890.6301, L100.0100, L3890.6006, BTS, L3410.9998, L509.8002, L506.0400, L501.9520, L3890.6102 ####[facility] [address] [place], [address] Nucleated RBC (Bld) [#/Vol] 0 10*3/uL Normal 0-5 [facility] Comment on above: Performed By: #### L 509.4006, L3890.6301, L100.0100, L3890.6006, BTS, L3410.9998, L509.8002, L506.0400, L501.9520, L3890.6102 ####[facility] [address] [place], [address] Platelet mean volume (Bld) [Entitic vol] 11.6 fL Normal 6.2-12.0 [facility] Comment on above: Performed By: #### L 509.4006, L3890.6301, L100.0100, L3890.6006, BTS, L3410.9998, L509.8002, L506.0400, L501.9520, L3890.6102 ####[facility] [address] [place], [address] Platelets (Bld) [#/Vol] 199 10*3/uL Normal 150-450 [facility] Comment on above: Performed By: #### L 509.4006, L3890.6301, L100.0100, L3890.6006, BTS, L3410.9998, L509.8002, L506.0400, L501.9520, L3890.6102 ####[facility] [address] [place], [address] RBC (Bld) [#/Vol] 4.75 10*6/uL Normal 4.2-5.4 [facility] Comment on above: Performed By: #### L 509.4006, L3890.6301, L100.0100, L3890.6006, BTS, L3410.9998, L509.8002, L506.0400, L501.9520, L3890.6102 ####[facility] [address] [place], [place], [phone]85) RDW SD 40.5 fl Normal 35.1-43.9 [facility] Comment on above: Performed By: #### L 509.4006, L3890.6301, L100.0100, L3890.6006, BTS, L3410.9998, L509.8002, L506.0400, L501.9520, L3890.6102 ####[facility] [address] [place], [place], [id number] WBC (Bld) [#/Vol] 7.9 10*3/uL Normal 4.4-11.0 [facility] Comment on above: Performed By: #### L 509.4006, L3890.6301, L100.0100, L3890.6006, BTS, L3410.9998, L509.8002, L506.0400, L501.9520, L3890.6102 ####[facility] [address] [place], [place], [id number] Chlamydia trachomatis rRNA d etection by probe and target amplification methodOrdered By: Debra Montalvo on 07-12-2024 C. trachomatis rRNA AMPARO+probe Ql (Unsp spec) Negative Negative [facility] Eosinophil percentageOrdered By: Debra Montalvo on 07-12-2024 Eosinophils/100 WBC (Bld) 2.0 % 0-5 [facility] Erythrocyte distribution wid th ratioOrdered By: Debra Montalvo on 07-12-2024 Erythrocyte distribution width (RBC) [Ratio] 12.4 % 11.6-14.6 [facility] Erythrocyte distribution wid th standard deviationOrdered By: Debra Montalvo on 07-12-2024 Erythrocyte distribution width (RBC) [Entitic vol] 40.5 fL 35.1-43.9 [facility] Erythrocyte distribution width (RBC) [Ratio] 40.5 fl 35.1-43.9 [facility] HBV surface Ag Ql (S)Ordered By: Debra Montalvo on 07-12-2024 Hepatitis B Surface Antigen Non-Reactive Nonreactive [facility] Comment on above: Reactive: Presumptiv e evidence of HBV. Repeatedly reactive samples must be confirmed using a neutralization test (ElecHEXIOs HBsAg Confirmatory Test)Non-Reactive: HBsAg not detected; does not exclude the possibility of exposure to HBV Hematocrit Auto (Bld) [Volum e fraction]Ordered By: Debra Montalvo on 07-12-2024 Hematocrit (Bld) [Volume fraction] 41.9 % 37-47 [facility] Hemoglobin measurementOrdere d By: Debra Montalvo on 07-12-2024 Hemoglobin (Bld) [Mass/Vol] 14.4 g/dL 12.0-15.0 [facility] Hepatitis C antibodyOrdered By: Debra Montalvo on 07-12-2024 Hepatitis C Antibody Non-Reactive Nonreactive [facility] Comment on above: Reactive: Presumptiv e evidence of antibodies to HCV. Follow CDC recommendations for supplemental testing.Non-Reactive: Antibodies to HCV were not detected; does not exclude the possibility of exposure to HCVReactive Results are presumptive evidence of antibodies to HCV. Follow CDC recommendations for supplemental testing.Order confirmation testing: HCV Quant by PCR testing - HCVPCR lc#[id number] Non Reactive: < 0.8 Equivocal: >/= 0.8 to < 1.0 Reactive: >/= 1.0The CDC requires that a reactive/equivocal HCV antibody result be sent out for confirmation. HCV Quant by PCR testing. Immature granulocytes/100 WB C Auto (Bld)Ordered By: Debra Montalvo on 07-12-2024 Immature granulocytes/100 WBC (Bld) 0.400 % 0.0-0.9 [facility] Comment on above: IG% - Immature Granu locytes (promyelocytes, myelocytes and metamyelocytes) > 1% indicates that a LEFT SHIFT is Present. L3890.6006on 07-12-2024 HIV Non-Reactive Normal Nonreactive [facility] Comment on above: Result Comment: Non- Reactive Reactive Repeatedly reactive samples must be confirmed according to CDC recommended confirmatory algorithms. The subresults for either HIVAG or AHIV can be used as an aid in the selection of the confirmation algorithm for reactive samples. Send out specimens with Reactive results to [facility] for confirmation. Order the HIV antibody detection and differentiation: lc#[id number] Performed By: #### L 509.4006, L3890.6301, L100.0100, L3890.6006, BTS, L3410.9998, L509.8002, L506.0400, L501.9520, L3890.6102 ####[facility] [address] [facility] [place], [place], [address] L3890.6102on 07-12-2024 HEP B Surf Ag Non-Reactive Normal Nonreactive [facility] Comment on above: Result Comment: Reac tive: Presumptive evidence of HBV. Repeatedly reactive samples must be confirmed using a neutralization test (ElecHEXIOs HBsAg Confirmatory Test) Non-Reactive: HBsAg not detected; does not exclude the possibility of exposure to HBV Performed By: #### L 509.4006, L3890.6301, L100.0100, L3890.6006, BTS, L3410.9998, L509.8002, L506.0400, L501.9520, L3890.6102 ####[facility] [address] [facility] [place], [place], [address] L3890.6301on 07-12-2024 Hepatitis C Ab Non-Reactive Normal Nonreactive [facility] Comment on above: Result Comment: Reac tive: Presumptive evidence of antibodies to HCV. Follow CDC recommendations for supplemental testing. Non-Reactive: Antibodies to HCV were not detected; does not exclude the possibility of exposure to HCV Reactive Results are presumptive evidence of antibodies to HCV. Follow CDC recommendations for supplemental testing. Order confirmation testing: HCV Quant by PCR testing - HCVPCR #[id number] Non Reactive: < 0.8 Equivocal: >/= 0.8 to < 1.0 Reactive: >/= 1.0 The CDC requires that a reactive/equivocal HCV antibody result be sent out for confirmation. HCV Quant by PCR testing. Performed By: #### L 509.4006, L3890.6301, L100.0100, L3890.6006, BTS, L3410.9998, L509.8002, L506.0400, L501.9520, L3890.6102 ####[facility] [address] [place], [address] L509.4006on 07-12-2024 Rubella IgG REAC Normal Nonreactive [facility] Comment on above: Result Comment: Anti body Result: Interpretation Non-Reactive: Non-Immune Reactive: Immune The following results were obtained with the Elecsys Rubella IgG assay. Results from assays of other manufacturers cannot be used interchangeably. Performed By: #### L 509.4006, L3890.6301, L100.0100, L3890.6006, BTS, L3410.9998, L509.8002, L506.0400, L501.9520, L3890.6102 ####[facility] [address] [place], [address] L509.8002on 07-12-2024 Syphilis Abs Non-Reactive Normal Nonreactive [facility] Comment on above: Performed By: #### L 509.4006, L3890.6301, L100.0100, L3890.6006, BTS, L3410.9998, L509.8002, L506.0400, L501.9520, L3890.6102 ####[facility] [address] [facility] [place], [place], [id number] Laboratory - Microbiology an d Antimicrobial susceptibilityOrdered By: Debra Montalvo on 07-12-2024 HBV surface Ag Ql (S) Non-Reactive Nonreactive [facility] Comment on above: Reactive: Presumptiv e evidence of HBV. Repeatedly reactive samples must be confirmed using a neutralization test (Elecsys HBsAg Confirmatory Test)Non-Reactive: HBsAg not detected; does not exclude the possibility of exposure to HBV Lymphocytes Auto (Unsp spec) [#/Vol]Ordered By: Debra Montalvo on 07-12-2024 Lymphocytes (Bld) [#/Vol] 1.39 10*3/uL 0.83-4.51 [facility] Lymphocytes/100 WBC Auto (Un sp spec)Ordered By: Debra Montalvo on 07-12-2024 Lymphocytes/100 WBC (Bld) 17.6 % Low 19-41 [facility] MCV (mean corpuscular volume ) determinationOrdered By: Debra Montalvo on 07-12-2024 MCV (RBC) [Entitic vol] 88.2 fL 81-99 [facility] Mean corpuscular hemoglobin (MCH) determinationOrdered By: Debra Montalvo on 07-12-2024 MCH (RBC) [Entitic mass] 30.3 pg 27.0-32.0 [facility] Mean corpuscular hemoglobin concentration (MCHC) determinationOrdered By: Debra Montalvo on 07-12-2024 MCHC (RBC) [Mass/Vol] 34.4 g/dL 32-36 [facility] Mean platelet volume determi nationOrdered By: Debra Montalvo on 07-12-2024 Platelet mean volume (Bld) [Entitic vol] 11.6 fL 6.2-12.0 [facility] Monocyte percentageOrdered B y: Debra Montalvo on 07-12-2024 Monocytes/100 WBC (Bld) 7.0 % 0-10 [facility] Neisseria gonorrhoeae nuclei c acid detection by amplified probe techniqueOrdered By: Debra Montalvo on 07-12-2024 N. gonorrhoeae DNA AMPARO+probe Ql (Unsp spec) Negative Negative [facility] Comment on above: Performed at: =[address] [id number] Director: Rani Rebolledo MD, Phone: [phone] Neutrophil percentageOrdered By: Debra Montalvo on 07-12-2024 Neutrophils/100 WBC (Bld) 72.4 % High 47-70 [facility] No Panel InformationOrdered By: Debra Montalvo on 07-12-2024 HIV (1&2) Antibody Non-Reactive Nonreactive [facility] Comment on above: Non-ReactiveReactive Repeatedly reactive samples must be confirmed according to CDC recommended confirmatory algorithms. The subresults for either HIVAG or AHIV can be used as an aid in the selection of the confirmation algorithm for reactive samples.Send out specimens with Reactive results to [facility] for confirmation.Order the HIV antibody detection and differentiation: #[id number] Nucleated red blood cell per centageOrdered By: Debra Montalvo on 07-12-2024 Nucleated RBC/100 WBC (Bld) [Ratio] 0 % 0-5 [facility] [employer] Office Visit Reporton 07-12-2024 [employer] Office Visit Report [facility] [address], [address] [place] [address] OFFICE VISIT Date of Service: 07/12/24 MR#: [id number] Acct: [id number] Name: PATTIE BALDERAS Rep #: [id number] 5 : 1995 Provider: LITO Costa ams Age/Sex: 29/F Location: [facility] Status: Signed Intake Vital Signs 07/06/23 08:00 07/12/24 08:55 Height 5 ft 4 in 5 ft 4 in Weight: 148 lb 8 oz BMI 25.4 BP 112/72 Intake Visit Reasons: New OB, LMP 05/02, RADHA 02/06 Chief Complaint: NOB LMP 05/02 Exhibition Specialist Required: No Is patient in pain?: No Allergies gluten Allergy (Verified 07/12/24 08:56) GI upset milk Allergy (Verified 07/12/24 08:56) GI upset tea tree Allergy (Verified 07/12/24 08:56) Hives Medications ???Medication ???Instructions ???Recorded ???Confirmed ???Type cetirizine 10 mg capsule (Zyrtec) 10 mg PO DAILY allergies 10/07/19 07/12/24 History cholecalciferol (vitamin D3) 25 50 mcg PO DAILY supplement 2 07/12/24 History mcg (1,000 unit) capsule (Vitamin D3) magnesium 250 mg tablet 250 mg PO DAILY supplement 2 07/12/24 History citalopram 40 mg tablet 40 mg PO DAILY 10/14/21 07/12/24 H istory buspirone 5 mg tablet 5 mg PO TID 06/21/24 07/12/24 Hist ory docosahexaenoic acid 200 mg mg PO 06/21/24 07/12/24 History capsule ( DHA) Last Menstrual Period: 05/02/24 Zika: Zika virus screening: Negative : Yes PFSH PFSH Medical History Ischemic hepatitis Allergic contact dermatitis Transaminitis Intestinal metaplasia of stomach without dysplasia Pyloric ulcer Irritable bowel syndrome with constipation Ovarian cyst Migraine headache Syncope Asthma Surgical History Hx of exploratory laparotomy Hx of colonoscopy with polypectomy 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/hazards: No pets and animals: Yes pets and animals: dog(s) history of recent travel: Yes ([facility] 2023) out of state: Yes out of country: No sexually active: Yes Smoking Status: Never smoker alcohol intake: current alcohol intake frequency: holidays/special occasions only details: Not while substance use type: does not use diet: gluten free and lactose free well-balanced diet: daily or most days caffeine: No eating out: 1-3 times/week during the past year weight has: increased > 10 lbs what type of physical activity do you participate in: walking, yoga and weight training frequency: 1-2 times per week duration: 15-30 minutes/day fredy/faith: [employer] seatbelt use: always do you feel safe at home: Yes additional social history: : 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 OB Visit RADHA Calculator Estimated Delivery Date Method Current WG Current Estimate 02/06/25 LMP (Certain) 10w 1d Other Estimates 02/11/25 Ultrasound #1 9w 3d Estimated Due Date: 02/06/25 Expected Delivery Route/Plan Labor Preferences- CB/BF classes: [] labor support person: [] labor intervention preferences: [] pain management options preferred: [] cut cord/dad catch: [] : [] PP control planned: [] discussed possible routes of delivery and associated risks: [] special requests: [] Specific Issue/Plans Covid status: [] Flu vaccine: [] Tdap vaccine: [] Rhogam: [] LARC form signed: [] Problem list reviewed and updated with the most current plan of care details and appropriate orders placed. Relevant counseling for the gestational age provided. Continue routine care and follow up unless otherwise noted in visit notes/problem list details Initial Weight: 148 lb Date -???-???-???-???-??? -???-???-???-???-??? -???-???- EGA Weight BP Urine Prot -???-???-???-???-??? -???-???-???-???-??? -???-???- Glucose FHR FuHt Pres Dilation -???-???-???-???-??? -???-???-???-???-??? -???-???- Effaced St Visit Note 07/12/24 -???-???-???-???-??? -???-???-???-???-??? -???-???- (more content not included)... Normal [facility] Platelet countOrdered By: Galen Montalvo on 07-12-2024 Platelets (Bld) [#/Vol] 199 10*3/uL 150-450 [facility] RBC Auto (Bld) [#/Vol]Ordere d By: Debra Montalvo on 07-12-2024 RBC (Bld) [#/Vol] 4.75 10*6/uL 4.2-5.4 [facility] Rubella immune status determ ination by IgG antibody assayOrdered By: Debra Montalvo on 07-12-2024 Rubella IgG Antibody REAC Nonreactive [facility] Comment on above: Antibody Result: Int erpretationNon-Reactive: Non-ImmuneReactive: ImmuneThe following results were obtained with the Elecsys Rubella IgG assay. Results from assays of other manufacturers cannot be used interchangeably. Kumar pallidum abOrdered By: Galen Montalvo on 07-12-2024 Syphilis Total Antibody Non-Reactive Nonreactiv e [facility] T4 Free Directon 07-12-2024 T4 FREE DIRECT 1.00 ng/dL Normal 0.76-1.46 [facility] Comment on above: Performed By: #### L 509.4006, L3890.6301, L100.0100, L3890.6006, BTS, L3410.9998, L509.8002, L506.0400, L501.9520, L3890.6102 ####[facility] [address] [place], [address] T4 freeOrdered By: Debra ray on 07-12-2024 Free T4 [Mass/Vol] 1.00 ng/dL 0.76-1.46 [facility] TSH DL <= 0.005 mIU/L QnOrde red By: Debra Montalvo on 07-12-2024 Thyroid Stimulating Hormone (TSH) 2.890 uIU/mL 0.300-4.200 [facility] TSH Qn 2.890 uIU/mL 0.300-4.200 [facility] Thyroid Stim Hormone (TSH)on 07-12-2024 TSH 2.890 uIU/mL Normal 0.300-4.200 [facility] Comment on above: Performed By: #### L 509.4006, L3890.6301, L100.0100, L3890.6006, BTS, L3410.9998, L509.8002, L506.0400, L501.9520, L3890.6102 ####[facility] [address] [place], [address] Type AND Screenon 07-12-2024 ABO and Rh group Nom (Bld) Blood group O Rh(D) negative Normal [facility] Comment on above: Order Comment: PN Performed By: #### L 509.4006, L3890.6301, L100.0100, L3890.6006, BTS, L3410.9998, L509.8002, L506.0400, L501.9520, L3890.6102 ####[facility] [address] [place], [address] Urine cultureOrdered By: Toney Montalvo on 07-12-2024 Bacteria identified Cx Nom (U) Positive Abnormal [facility] White blood cell (WBC) count Ordered By: Debra Montalvo on 07-12-2024 WBC (Bld) [#/Vol] 7.9 10*3/uL 4.4-11.0 [facility] CNOVon 05-30-2024 CNOV Office Visit (FAMPWS) PATTIE BALDERAS ([id number]) 1995 F Date Time Provider Department 05/30/24 2:20 PM ELIUD PEÑALOZA During your visit today, we recorded the following information about you: Pulse Blood pressure Weight 99/minute 117/73 67.6 kg Eliud Peñaloza APRN.COLD ROLL CATCHER 05/30/2024 3:29 PM Signed Chief Complaint Patient presents with: Physical HPI Pattie Samantha Balderas is a 28 year old female who presents here today for Above Complaints.. Patient presents today for her annual physical. Pt has been weaning down on her prozac over the past visit now on alternating 20mg and 10mg. Pt states she has been having more depressive symptoms feeling more cabral. She doesn't think it is effecting her sleep at this time but is having more vivid dreams, but wishes to stay on this dosage at this time. Patient has no other complaints for her health at this time. Patient denies fever, chills, nausea, vomiting, chest pain, SOB, headaches. Past medical history, appointments, medications, allergies reviewed. Previous Medical History PAST MEDICAL HISTORY Diagnosis Date Depression Endometriosis Generalized anxiety disorder IBS (irritable bowel syndrome) Insulin resistance Ischemic hepatitis Ovarian cyst PCOS (polycystic ovarian syndrome) Previous Surgical History PAST SURGICAL HISTORY Procedure Laterality Date COLONOSCOPY SCREENING L'SCOPE DX W/WO BRUSHINGS/WASHINGS 04/2021 REVISE MEDIAN N/CARPAL TUNNEL SURG Left 06/2011 Family History FAMILY HISTORY Adopted: Yes Patient Allergies ALLERGIES Allergen Reactions Tea Tree Hives Current Medications Current Outpatient Medications on File Prior to Visit Medication Sig FLUoxetine (PROZAC) 20 mg capsule TAKE 1 CAPSULE BY MOUTH EVERY DAY FLUoxetine (PROZAC) 10 mg capsule TAKE 1 CAPSULE BY MOUTH EVERY DAY busPIRone (BUSPAR) 5 mg tablet Take 1 tablet by mouth three times a day. cholecalciferol (VITAMIN D-3) 5,000 unit tab Take 5,000 Units by mouth once daily. MAGNESIUM CITRATE ORAL Take 150 mg by mouth once daily. docosahexaenoic acid/epa (FISH OIL ORAL) Take 700 mg by mouth once daily. Cetirizine (ZYRTEC) 10 mg cap Take 1 capsule by mouth once daily. No current facility-administere d medications on file prior to visit. Social History Social History Tobacco Use Smoking status: Never Smokeless tobacco: Never Vaping Use Vaping status: Never Used Substance Use Topics Alcohol use: Yes Comment: once a year Drug use: Never Review of Symptoms REVIEW OF SYSTEMS GENERAL: No weight loss, malaise or fevers RESPIRATORY: Negative for cough, hemoptysis, wheezing, COPD, dyspnea or shortness of breath CARDIOVASCULAR: Negative for chest pain, leg swelling, hypertension, CHF or palpitations EXAM: BP 117/73 Pulse 99 Wt 67.6 kg (149 lb) LMP 06/26/2023 BMI 26.39 kg/m? General Appearance: Well appearing, alert, in no acute distress, well-hydrated, well nourished.. Neck: Supple, no adenopathy; thyroid symmetric, normal size, no bruits. Lungs: Lungs clear to auscultation. No wheezing, rhonchi, rales.. Heart: RRR without murmur, gallop, or rubs. No ectopy. Abdomen: Normal abdominal exam, Abdomen soft, non-tender. Bowel sounds normal. No masses, organomegaly. Peripheral Pulses: Normal. Health Maintenance List Depression Screening Never done Anxiety Screening Never done Hepatitis C Screening Never done HIV Screening Never done Influenza Vaccine(1) due on 12/24/2023 Covid-19 Vaccine(2023- season) due on 12/24/2023 Cervical Cancer Screening due on 03/21/2026 DTaP,Tdap,Td Vaccine(9 - Td or Tdap) due on 01/19/2031 Hepatitis B Vaccine Completed HPV Vaccine Completed Data reviewed Latest Ref Rng 05/28/2024 WBC 3.70 - 11.00 k/uL 7.86 RBC 3.90 - 5.20 m/uL 4.68 Hemoglobin 11.5 - 15.5 g/dL 14.2 Hematocrit 36.0 - 46.0 % 42.5 MCV 80.0 - 100.0 fL 90.8 MCH 26.0 - 34.0 pg 30.3 MCHC 30.5 - 36.0 g/dL 33.4 RDW-CV 11.5 - 15.0 % 12.6 Platelet Count 150 - 400 k/uL 192 MPV 9.0 - 12.7 fL 11.4 Neut% % 63.0 Abs Neut (ANC) 1.45 - 7.50 k/uL 4.94 Lymph% % 25.4 Abs Lymph 1.00 - 4.00 k/uL 2.00 Corson% % 6.7 Abs Corson <0.87 k/uL 0.53 Eosin% % 3.7 Abs Eosin <0.46 k/uL 0.29 Baso% % 0.6 Abs Baso <0.11 k/uL 0.05 Immature Gran % % 0.6 IMMATURE GRANS (ABS) <0.10 k/uL 0.05 NRBC /100 WBC 0.0 Absolute nRBC <0.01 k/uL <0.01 DTYPE Auto Protein, Total 6.3 - 8.0 g/dL 7.0 Albumin 3.9 - 4.9 g/dL 4.5 Calcium 8.5 - 10.2 mg/dL 9.6 Bilirubin, Total 0.2 - 1.3 mg/dL 0.3 Alkaline Phosphatase 34 - 123 U/L 57 AST 13 - 35 U/L 20 ALT 7 - 38 U/L 16 Glucose 74 - 99 mg/dL 82 BUN 7 - 21 mg/dL 13 Creatinine 0.58 - 0.96 mg/dL 0.75 Sodium 136 - 144 mmol/L 138 Potassium 3.7 - 5.1 mmol/L 3.9 Chloride 98 - 107 mmol/L 103 CO2 22 - 30 mmol/L 24 Anion Gap 8 - 15 mmol/L 11 eGFR >=60 mL/min/1.73m? 111 Total Choleste (more content not included)... Normal [facility] CBC W Auto Differential pane l (Bld)on 05-28-2024 Basophils (Bld) [#/Vol] 0.05 10*3/uL Normal <0.11 [facility] Comment on above: Order Comment: Speci men Type: BLOOD SPECIMENOrdering Facility: [facility] Address: [address] [place] [address] Performed By: #### 5 7021-8 ####[facility] [id number] [place] [address] [place] Basophils/100 WBC (Bld) 0.6 % Normal C [facility] Comment on above: Order Comment: Speci men Type: BLOOD SPECIMENOrdering Facility: [facility] Address: [address] [place] [address] Performed By: #### 5 7021-8 ####[facility] [id number] [place] [address] [place] Differential cell count method Nom (Bld) Auto Normal [facility] Comment on above: Order Comment: Speci men Type: BLOOD SPECIMENOrdering Facility: [facility] Address: [address] [place] [address] Performed By: #### 5 7021-8 ####[facility] [id number] [place] [address] [place] Eosinophils (Bld) [#/Vol] 0.29 10*3/uL Normal <0.46 [facility] Comment on above: Order Comment: Speci men Type: BLOOD SPECIMENOrdering Facility: [facility] Address: [address] [place] [address] Performed By: #### 5 7021-8 ####[facility] [id number] [place] [address] [place] Eosinophils/100 WBC (Bld) 3.7 % Normal [facility] Comment on above: Order Comment: Speci men Type: BLOOD SPECIMENOrdering Facility: [facility] Address: [address] [place] [address] Performed By: #### 5 7021-8 ####[facility] [id number] [place] [address] [place] Erythrocyte distribution width (RBC) [Ratio] 12.6 % Normal 11.5-15.0 [facility] Comment on above: Order Comment: Speci men Type: BLOOD SPECIMENOrdering Facility: [facility] Address: [address] [place] [address] Performed By: #### 5 7021-8 ####[facility] [id number] [place] [address] [place] Hematocrit (Bld) [Volume fraction] 42.5 % Normal 36.0-46.0 [facility] Comment on above: Order Comment: Speci men Type: BLOOD SPECIMENOrdering Facility: [facility] Address: [address] [place] [address] Performed By: #### 5 7021-8 ####[facility] [id number] [place] [address] [place] Hemoglobin (Bld) [Mass/Vol] 14.2 g/dL Normal 11.5-15.5 [facility] Comment on above: Order Comment: Speci men Type: BLOOD SPECIMENOrdering Facility: [facility] Address: [address] [place] [address] Performed By: #### 5 7021-8 ####[facility] LABCLIA [id number] [place] [address] [place] Immature granulocytes (Bld) [#/Vol] 0.05 10*3/uL Normal <0.10 [facility] Comment on above: Order Comment: Speci men Type: BLOOD SPECIMENOrdering Facility: [facility] Address: [address] [place] [address] Performed By: #### 5 7021-8 ####[facility] [id number] [place] [address] [place] Immature granulocytes/100 WBC (Bld) 0.6 % Normal [facility] Comment on above: Order Comment: Speci men Type: BLOOD SPECIMENOrdering Facility: [facility] Address: [address] [place] [address] Performed By: #### 5 7021-8 ####[facility] [id number] [place] [address] [place] Lymphocytes (Bld) [#/Vol] 2.00 10*3/uL Normal 1.00-4.00 [facility] Comment on above: Order Comment: Speci men Type: BLOOD SPECIMENOrdering Facility: [facility] Address: [address] [place] [address] Performed By: #### 5 7021-8 ####[facility] LABCLIA [id number] [place] [address] [place] Lymphocytes/100 WBC (Bld) 25.4 % Normal [facility] Comment on above: Order Comment: Speci men Type: BLOOD SPECIMENOrdering Facility: [facility] Address: [address] [place] [address] Performed By: #### 5 7021-8 ####[facility] LABCLIA [id number] [place] [address] [place] MCH (RBC) [Entitic mass] 30.3 pg Normal 26.0-34.0 [facility] Comment on above: Order Comment: Speci men Type: BLOOD SPECIMENOrdering Facility: [facility] Address: [address] [place] [address] Performed By: #### 5 7021-8 ####[facility] LABCLIA [id number] [place] [address] [place] MCHC (RBC) [Mass/Vol] 33.4 g/dL Normal 30.5-36.0 [facility] Comment on above: Order Comment: Speci men Type: BLOOD SPECIMENOrdering Facility: [facility] Address: [address] [place] [address] Performed By: #### 5 7021-8 ####[facility] LABCLIA [id number] [place] [address] [place] MCV (RBC) [Entitic vol] 90.8 fL Normal 80.0-100.0 [facility] Comment on above: Order Comment: Speci men Type: BLOOD SPECIMENOrdering Facility: [facility] Address: [address] [place] [address] Performed By: #### 5 7021-8 ####[facility] LABCLIA [id number] [place] [address] [place] Monocytes (Bld) [#/Vol] 0.53 10*3/uL Normal <0.87 [facility] Comment on above: Order Comment: Speci men Type: BLOOD SPECIMENOrdering Facility: [facility] Address: [address] [place] [address] Performed By: #### 5 7021-8 ####[facility] LABCLIA [id number] [place] [address] [place] Monocytes/100 WBC (Bld) 6.7 % Normal [facility] Comment on above: Order Comment: Speci men Type: BLOOD SPECIMENOrdering Facility: [facility] Address: [address] [place] [address] Performed By: #### 5 7021-8 ####[facility] LABCLIA [id number] [place] [address] [place] Neutrophils (Bld) [#/Vol] 4.94 10*3/uL Normal 1.45-7.50 [facility] Comment on above: Order Comment: Speci men Type: BLOOD SPECIMENOrdering Facility: [facility] Address: [address] [place] [address] Performed By: #### 5 7021-8 ####[facility] LABCLIA [id number] [place] [address] [place] Neutrophils/100 WBC (Bld) 63.0 % Normal [facility] Comment on above: Order Comment: Speci men Type: BLOOD SPECIMENOrdering Facility: [facility] Address: [address] [place] [address] Performed By: #### 5 7021-8 ####[facility] LABCLIA [id number] [place] [address] [place] Nucleated RBC (Bld) [#/Vol] 10*3/uL Normal <0.01 [facility] Comment on above: Order Comment: Speci men Type: BLOOD SPECIMENOrdering Facility: [facility] Address: [address] [place] [address] Performed By: #### 5 7021-8 ####[facility] LABCLIA [id number] [place] [address] [place] Nucleated RBC/100 WBC (Bld) [Ratio] 0.0 /100 WBC Normal [facility] Comment on above: Order Comment: Speci men Type: BLOOD SPECIMENOrdering Facility: [facility] Address: [address] [place] [address] Performed By: #### 5 7021-8 ####[facility] LABCLIA [id number] [place] [address] [place] Platelet mean volume (Bld) [Entitic vol] 11.4 fL Normal 9.0-12.7 [facility] Comment on above: Order Comment: Speci men Type: BLOOD SPECIMENOrdering Facility: [facility] Address: [address] [place] [address] Performed By: #### 5 7021-8 ####[facility] LABCLIA [id number] [place] [address] [place] Platelets (Bld) [#/Vol] 192 10*3/uL Normal 150-400 [facility] Comment on above: Order Comment: Speci men Type: BLOOD SPECIMENOrdering Facility: [facility] Address: [address] [place] [address] Performed By: #### 5 7021-8 ####[facility] LABIA [id number] [place] [address] [place] RBC (Bld) [#/Vol] 4.68 10*6/uL Normal 3.90-5.20 [facility] Comment on above: Order Comment: Speci men Type: BLOOD SPECIMENOrdering Facility: [facility] Address: [address] [place] [address] Performed By: #### 5 7021-8 ####[facility] LABIA [id number] [place] [address] [place] WBC (Bld) [#/Vol] 7.86 10*3/uL Normal 3.70-11.00 [facility] Comment on above: Order Comment: Speci men Type: BLOOD SPECIMENOrdering Facility: [facility] Address: [address] [place] [address] Performed By: #### 5 7021-8 ####[facility] LABIA [id number] [place] [address] [place] Comprehensive metabolic 2000 panelon 05-28-2024 Albumin [Mass/Vol] 4.5 g/dL Normal 3.9-4.9 [facility] Comment on above: Order Comment: Speci men Type: BLOOD SPECIMENOrdering Facility: [facility] Address: [address] [place] [address] Performed By: #### 2 4323-8, LIPNF, 22590-8, 3053-6 ####[facility] LABCLIA [id number] [place] [address] [place] ALP [Catalytic activity/Vol] 57 U/L Normal 34-123 [facility] Comment on above: Order Comment: Speci men Type: BLOOD SPECIMENOrdering Facility: [facility] Address: [address] [place] [address] Performed By: #### 2 4323-8, LIPNF, 77350-6, 3053-6 ####[facility] LABCLIA [id number] [place] [address] [place] ALT [Catalytic activity/Vol] 16 U/L Normal 7-38 [facility] Comment on above: Order Comment: Speci men Type: BLOOD SPECIMENOrdering Facility: [facility] Address: [address] [place] [address] Performed By: #### 2 4323-8, LIPNF, 84330-8, 3053-6 ####[facility] LABCLIA [id number] [place] [address] [place] Anion gap [Moles/Vol] 11 mmol/L Normal 8-15 [facility] Comment on above: Order Comment: Speci men Type: BLOOD SPECIMENOrdering Facility: [facility] Address: [address] [place] [address] Performed By: #### 2 4323-8, LIPNF, 74778-3, 3053-6 ####[facility] LABCLIA [id number] [place] [address] [place] AST [Catalytic activity/Vol] 20 U/L Normal 13-35 [facility] Comment on above: Order Comment: Speci men Type: BLOOD SPECIMENOrdering Facility: [facility] Address: [address] [place] [address] Performed By: #### 2 4323-8, LIPNF, 00240-1, 3053-6 ####[facility] LABCLIA [id number] [place] [address] [place] Bilirubin [Mass/Vol] 0.3 mg/dL Normal 0.2-1.3 [facility] Comment on above: Order Comment: Speci men Type: BLOOD SPECIMENOrdering Facility: [facility] Address: [address] [place] [address] Performed By: #### 2 4323-8, LIPNF, 02064-0, 3053-6 ####[facility] LABCLIA [id number] [place] [address] [place] Calcium [Mass/Vol] 9.6 mg/dL Normal 8.5-10.2 [facility] Comment on above: Order Comment: Speci men Type: BLOOD SPECIMENOrdering Facility: [facility] Address: [address] [place] [address] Performed By: #### 2 4323-8, LIPNF, 06927-1, 305-6 ####[facility] LABCLIA [id number] [place] [address] [place] Chloride [Moles/Vol] 103 mmol/L Normal 98-107 [facility] Comment on above: Order Comment: Speci men Type: BLOOD SPECIMENOrdering Facility: [facility] Address: [address] [place] [address] Performed By: #### 2 4323-8, LIPNF, 81904-2, 305-6 ####[facility] LABCLIA [id number] [place] [address] [place] CO2 [Moles/Vol] 24 mmol/L Normal 22-30 [facility] Comment on above: Order Comment: Speci men Type: BLOOD SPECIMENOrdering Facility: [facility] Address: [address] [place] [address] Performed By: #### 2 4323-8, LIPNF, 31764-8, 3053-6 ####[facility] LABCLIA [id number] [place] [id number] [place] Creatinine [Mass/Vol] 0.75 mg/dL Normal 0.58-0.96 [facility] Comment on above: Order Comment: Dixon martinez Type: BLOOD SPECIMENOrdering Facility: [facility] Address: [address] [place] [address] Performed By: #### 2 4323-8, LIPMARK, 39272-7, 3053-6 ####[facility] LABCLIA [id number] [place] [address] [place] Creatinine and Glomerular filtration rate.predicted panel (S/P/Bld) 111 mL/min/1.73m??? Normal >=60 [facility] Comment on above: Order Comment: Dixon martinez Type: BLOOD SPECIMENOrdering Facility: [facility] Address: [address] [place] [address] Result Comment: Karo mated Glomerular Filtration Rate (eGFR) is calculated using the 2020 CKD-EPI creatinine equation. This equation utilizes serum creatinine, sex, and age as parameters. The creatinine assay has traceable calibration to isotope dilution-mass spectrometry. Refer to KDIGO guidelines for clinical interpretation. In patients with unstable renal function, e.g. those with acute kidney injury, the eGFR may not accurately reflect actual GFR. Performed By: #### 2 4323-8, JENY, 18581-1, 3053-6 ####[facility] LABCLIA [id number] [place] [address] [place] Glucose [Mass/Vol] 82 mg/dL Normal 74-99 [facility] Comment on above: Order Comment: Dixon martinez Type: BLOOD SPECIMENOrdering Facility: [facility] Address: [address] [place] [address] Result Comment: The [place] Diabetes Association (ADA) provides guidance for cutoff values for fasting glucose and random glucose. The ADA defines fasting as no caloric intake for at least 8 hours. Fasting plasma glucose results between 100 to 125 mg/dL indicate increased risk for diabetes (prediabetes). Fasting plasma glucose results greater than or equal to 126 mg/dL meet the criteria for diagnosis of diabetes. In the absence of unequivocal hyperglycemia, results should be confirmed by repeat testing. In a patient with classic symptoms of hyperglycemia or hyperglycemic crisis, random plasma glucose results greater than or equal to 200 mg/dL meet the criteria for diagnosis of diabetes. Reference: Standards of Medical Care in Diabetes 2016, [place] Diabetes Association. Diabetes Care. 2016.39(Suppl 1). Performed By: #### 2 4323-8, LIPNF, 83043-8, 305-6 ####[facility] LABCLIA [id number] [address] [address] [place] Potassium [Moles/Vol] 3.9 mmol/L Normal 3.7-5.1 [facility] Comment on above: Order Comment: Speci men Type: BLOOD SPECIMENOrdering Facility: [facility] Address: [address] [place] [address] Performed By: #### 2 4323-8, LIPNF, 21399-8, 3052-6 ####[facility] LABCLIA [id number] [place] [id number] [place] Protein [Mass/Vol] 7.0 g/dL Normal 6.3-8.0 [facility] Comment on above: Order Comment: Speci men Type: BLOOD SPECIMENOrdering Facility: [facility] Address: [address] [place] [address] Performed By: #### 2 4323-8, LIPNF, 14299-4, 3052-6 ####[facility] LABCLIA [id number] [place] [id number] [place] Sodium [Moles/Vol] 138 mmol/L Normal 136-144 [facility] Comment on above: Order Comment: Speci men Type: BLOOD SPECIMENOrdering Facility: [facility] Address: [address] [place] [address] Performed By: #### 2 4323-8, LIPNF, 72130-4, 305-6 ####[facility] LABCLIA [id number] [address] [address] [place] Urea nitrogen [Mass/Vol] 13 mg/dL Normal 7-21 [facility] Comment on above: Order Comment: Dixon men Type: BLOOD SPECIMENOrdering Facility: [facility] Address: [address] [place] [address] Performed By: #### 2 4323-8, LIPNF, 55105-3, 3053-6 ####[facility] LABCLIA [id number] [place] [address] [place] Ferritin SerPl-mCncon 2024 Ferritin [Mass/Vol] 45.4 ng/mL Normal 14.7-205.1 [facility] Comment on above: Order Comment: Dixon men Type: BLOOD SPECIMENOrdering Facility: [facility] Address: [address] [place] [address] Performed By: #### 3 024-7, 3016-3, 2276-4 ####[facility] LABCLIA [id number] [place] [address] [place] HbA1c (Bld)on 05-28-2024 Average glucose Estimated from glycated hemoglobin (Bld) [Mass/Vol] 80 mg/dL Normal [facility] Comment on above: Order Comment: Dixon martinez Type: BLOOD SPECIMENOrdering Facility: [facility] Address: [address] [place] [address] Result Comment: eAG: (Estimated average glucose) is a calculated value from HgbA1c and is signs sales representative of the average blood glucose level in the last 2-3 month period. Performed By: #### 5 5454-3 ####[facility] LABIA [id number] [place] [address] [place] HbA1c (Bld) [Mass fraction] 4.4 % Normal 4.3-5.6 [facility] Comment on above: Order Comment: Dixon juan Type: BLOOD SPECIMENOrdering Facility: [facility] Address: [address] [place] [address] Result Comment: [place] Diabetes Association guidelines indicate that patients with HgbA1c in the range 5.7-6.4% are at increased risk for development of diabetes, and intervention by lifestyle modification may be beneficial. HgbA1c greater or equal to 6.5% is considered diagnostic of diabetes. Performed By: #### 5 5454-3 ####[facility] LABCLIA [id number] [place] [address] [place] Iron and Iron binding capaci ty panelon 05-28-2024 Iron [Mass/Vol] 72 ug/dL Normal 41-186 [facility] Comment on above: Order Comment: Speci men Type: BLOOD SPECIMENOrdering Facility: [facility] Address: [address] [place] [address] Performed By: #### 2 4323-8, LIPNF, 67073-5, 3053-6 ####[facility] LABIA [id number] [address] [place] Iron binding capacity [Mass/Vol] 371 ug/dL Normal 232-386 [facility] Comment on above: Order Comment: Speci men Type: BLOOD SPECIMENOrdering Facility: [facility] Address: [address] [place] [address] Performed By: #### 2 4323-8, LIPNF, 16300-1, 3053-6 ####[facility] LABIA [id number] [place] [address] [place] Iron/TIBC [Molar ratio] 19.4 % Normal 15.0-57.0 [facility] Comment on above: Order Comment: Speci men Type: BLOOD SPECIMENOrdering Facility: [facility] Address: [address] [place] [address] Performed By: #### 2 4323-8, LIPNF, 17444-5, 3053-6 ####[facility] LABIA [id number] [place] [id number] [place] LIPID PANEL, NONFASTINGon Cholesterol [Mass/Vol] 161 mg/dL Normal <[address] [facility] Comment on above: Order Comment: Speci men Type: BLOOD SPECIMENOrdering Facility: [facility] Address: [address] [place] [address] Result Comment: <200 mg/dL, Desirable 200-239 mg/dL, Borderline high >239 mg/dL, High Performed By: #### 2 4323-8, LIPNF, 77100-0, 3053-6 ####[facility] LABCLIA [id number] [place] [address] [place] HDL CHOLESTEROL, NF 47 mg/dL Normal >39 [facility] Comment on above: Order Comment: Speci men Type: BLOOD SPECIMENOrdering Facility: [facility] Address: [address] [place] [address] Result Comment: 40-5 9 mg/dL, Acceptable >59 mg/dL, High: Negative risk factor for coronary heart disease <40 mg/dL, Low: Positive risk factor for coronary heart disease Performed By: #### 2 4323-8, LIPNF, 06252-8, 3053-6 ####[facility] LABCLIA [id number] [address] [place] LDL CHOLESTEROL, NF 80 mg/dL Normal <100 [facility] Comment on above: Order Comment: Blanei men Type: BLOOD SPECIMENOrdering Facility: [facility] Address: [address] [place] [address] Result Comment: <100 mg/dL, Optimal 100-129 mg/dL, Near optimal/above optimal 130-159 mg/dL, Borderline high 160-189 mg/dL, High >189 mg/dL, Very high Secondary prevention optimal LDL Cholesterol levels are recommended to be < 70 mg/dL Performed By: #### 2 4323-8, LIPNF, 26891-2, 3053-6 ####[facility] LABCLIA [id number] [address] [place] LDL/HDL RATIO, NF 1.70 mg/dL Normal <2.54 [facility] Comment on above: Order Comment: Speci men Type: BLOOD SPECIMENOrdering Facility: [facility] Address: [address] [place] [address] Result Comment: Pablo toribio: 1. National Cholesterol Education Program ATP III Guideline At-A-Glance Quick Desk Reference: National Heart, Lung, and Blood [place]. National Institutes of Health. 2001: NIH Publication No. 01-3305. 2. An International Atherosclerosis Society position paper: global recommendations for the management of dyslipidemia: executive summary, Atherosclerosis. 2014: 232(2):410-413. Performed By: #### 2 4323-8, LIPNF, 32823-4, 3053-6 ####[facility] LABCLIA [id number] [place] [address] [place] NON HDL CHOL, NF 114 mg/dL Normal <130 [facility] Comment on above: Order Comment: Speci men Type: BLOOD SPECIMENOrdering Facility: [facility] Address: [address] [place] [address] Result Comment: <130 mg/dL, Optimal 130-159 mg/dL, Near optimal/above optimal 160-189 mg/dL, Borderline high 190-219 mg/dL, High >219 mg/dL, Very high Secondary prevention optimal non HDL Cholesterol levels are recommended to be <100 mg/dL Performed By: #### 2 4323-8, LIPNF, 07773-6, 3053-6 ####[facility] LABCLIA [id number] [place] [address] [place] T CHOL/HDL RATIO NF 3.43 mg/dL Normal <5.10 [facility] Comment on above: Order Comment: Speci men Type: BLOOD SPECIMENOrdering Facility: [facility] Address: [address] [place] [address] Performed By: #### 2 4323-8, LIPNF, 48474-7, 3053-6 ####[facility] LABCLIA [id number] [place] [address] [place] TRIGLYCERIDES, NF 169 mg/dL High <150 [facility] Comment on above: Order Comment: Speci men Type: BLOOD SPECIMENOrdering Facility: [facility] Address: [address] [place] [address] Result Comment: <150 mg/dL, Normal 150-199 mg/dL, Borderline high 200-499 mg/dL, High >499 mg/dL, Very high Performed By: #### 2 4323-8, LIPNF, 42632-9, 3053-6 ####[facility] LABCLIA [id number] [place] [address] [place] VLDL CHOLESTEROL, NF 34 mg/dL High <30 [facility] Comment on above: Order Comment: Speci men Type: BLOOD SPECIMENOrdering Facility: [facility] Address: [address] [place] [address] Performed By: #### 2 4323-8, LIPNF, 10412-3, 3053-6 ####[facility] LABCLIA [id number] [place] [address] [place] T3 SerPl-mCncon 05-28-2024 T3 [Mass/Vol] 86 ng/dL Normal 79-165 [facility] Comment on above: Order Comment: Speci men Type: BLOOD SPECIMENOrdering Facility: [facility] Address: [address] [place] [address] Performed By: #### 2 4323-8, LIPNF, 13424-2, 3053-6 ####[facility] LABCLIA [id number] [place] [address] [place] T4 Free SerPl-mCncon 025 Free T4 [Mass/Vol] 0.9 ng/dL Normal 0.9-1.7 [facility] Comment on above: Order Comment: Speci men Type: BLOOD SPECIMENOrdering Facility: [facility] Address: [address] [place] [address] Performed By: #### 3 024-7, 3016-3, 2276-4 ####[facility] LABCLIA [id number] [place] [id number] THYROID PEROXIDASE ANTIBODYo n 05-28-2024 TPO Ab Qn 10.1 [IU]/mL High <5.6 [facility] Comment on above: Order Comment: Dixon martinez Type: BLOOD SPECIMENOrdering Facility: [facility] Address: [address] [place] [address] Result Comment: Thyr oid Peroxidase Antibody test is used as an aid in diagnosis of autoimmune thyroid disease. Clinical correlation is required. Performed By: #### M ICRO ####[facility] LABCLIA [id number] [address] [place] TSH SerPl-aCncon 05-28-2024 TSH Qn 3.070 m[IU]/L Normal 0.270-4.200 [facility] Comment on above: Order Comment: Dixon martinez Type: BLOOD SPECIMENOrdering Facility: [facility] Address: [address] [place] [address] Result Comment: If t he patient is , TSH reference range varies by gestational period: First Trimester (weeks 9-12): 0.180-2.990 mIU/L Second Trimester: 0.110-3.980 mIU/L Third Trimester: 0.480-4.710 mIU/L Michael Vences et al. A Practical Approach for the Verifications and Determination of Site- and Trimester-Specific Reference Intervals for Thyroid Function tests in . Thyroid, 2019:29:3:412-420. Ramses E, et al. 2017 Guidelines of the [place] Thyroid Association for the Diagnosis and Management of Thyroid Disease during and the . Thyroid, 2017:27:3:315-389. Performed By: #### 3 024-7, 3016-3, 2276-4 ####[facility] LABIA [id number] [address] [place] CNCOon 01-11-2024 CNCO Letter Text Normal [facility] CNOVon 09-26-2023 CNOV Office Visit (FAMPWS) PATTIE BALDERAS ([id number]) 1995 F Date Time Provider Department 09/26/23 9:00 AM ELIUD PEÑALOZA During your visit today, we recorded the following information about you: Pulse Respiration Blood pressure Weight 86/minute 14/minute 120/71 65.8 kg Eliud Peñaloza, [employer] 09/26/2023 9:07 AM Signed Chief Complaint Patient presents with: Follow Up HPI Pattie Balderas is a 28 year old female who presents here today for Above Complaints.. Patient presents for medication follow up. Patient currently taking iron and vitamin c every other day and has noticed an improvement in her fatigue. Patient had bowel obstruction but has recovered well and follows with Dr. Reddy. Patient would like to trial weaning prozac down. Past medical history, appointments, medications, allergies reviewed. Previous Medical History PAST MEDICAL HISTORY Diagnosis Date Depression Endometriosis Generalized anxiety disorder IBS (irritable bowel syndrome) Insulin resistance Ischemic hepatitis Ovarian cyst PCOS (polycystic ovarian syndrome) Previous Surgical History PAST SURGICAL HISTORY Procedure Laterality Date COLONOSCOPY SCREENING L'SCOPE DX W/WO BRUSHINGS/WASHINGS 04/2021 REVISE MEDIAN N/CARPAL TUNNEL SURG Left 06/2011 Family History FAMILY HISTORY Adopted: Yes Patient Allergies ALLERGIES Allergen Reactions Tea Tree Hives Current Medications Current Outpatient Medications on File Prior to Visit Medication Sig FLUoxetine (PROZAC) 40 mg capsule Take 1 capsule by mouth every day lubiprostone (AMITIZA) 24 mcg capsule Take 1 capsule by mouth once daily. fluticasone (FLONASE ALLERGY RELIEF) 50 mcg/actuation nasal spray Flonase Allergy Relief qDay, 0 Refill(s) Start Date: 01/19/21 Status: Ordered ferrous sulfate (IRON) 325 mg (65 mg iron) tablet Take 325 mg by mouth. B5/B6/PABA/cord/rhod /P.ginseng (ADRENAL ESSENCE ORAL) Take by mouth. cholecalciferol (VITAMIN D-3) 5,000 unit tab Take 5,000 Units by mouth once daily. MAGNESIUM CITRATE ORAL Take 150 mg by mouth once daily. docosahexaenoic acid/epa (FISH OIL ORAL) Take 700 mg by mouth once daily. pantoprazole DR (PROTONIX) 40 mg tablet Take 40 mg by mouth every morning. Cetirizine (ZYRTEC) 10 mg cap Take 1 capsule by mouth once daily. No current facility-administere d medications on file prior to visit. Social History Social History Tobacco Use Smoking status: Never Smokeless tobacco: Never Vaping Use Vaping Use: Never used Substance Use Topics Alcohol use: Yes Comment: once a year Drug use: Never Review of Symptoms REVIEW OF SYSTEMS SEE HPI EXAM: BP 120/71 Pulse 86 Resp 14 Wt 65.8 kg (145 lb) LMP 06/26/2023 BMI 25.69 kg/m? General Appearance: Well appearing, alert, in no acute distress, well-hydrated, well nourished.. Lungs: Lungs clear to auscultation. No wheezing, rhonchi, rales.. Heart: RRR without murmur, gallop, or rubs. No ectopy. Health Maintenance List Hepatitis C Screening Never done HIV Screening Never done Hepatitis B Vaccine(1 of 3 - 19+ 3-dose series) Never done Covid-19 Vaccine(3 - 2022- season) due on 12/23/2022 Pap Testing due on 03/21/2026 DTaP,Tdap,Td Vaccine(2 - Td or Tdap) due on 01/19/2031 Influenza Vaccine Completed Behavioral Health Screening Completed HPV Vaccine Aged Out ASSESSMENT/PLAN: 1. Anxiety with depression - ICD9: 300.4, ICD10: F41.8 -Patient to take 40mg/30mg alternating every other day for the next two weeks. Will follow up with VV in 2 weeks to reassess taper. - FLUOXETINE 20 MG CAPSULE - FLUOXETINE 10 MG CAPSULE Eliud Peñaloza APRN.COLD ROLL CATCHER Allergies As of Date: 09/26/2023 Noted Allergy Reaction TEA TREE 07/02/2021 4 - Hives Date Reviewed: 09/26/2023 Reviewed by: Kayla Mandel MA - Fully Assessed Reason for Visit: Follow Up [171] Primary Visit Diagnosis:Anxiety with depression [F41.8] Order(s):lubiproston e (AMITIZA) 8 mcg capsuleTake 1 capsule by mouth once daily.Disp: Rfl: FLUoxetine (PROZAC) 20 mg capsuleTake one capsule every other day with 10mg for total of 30mg.Disp: 14 capsuleRfl: 0 FLUoxetine (PROZAC) 10 mg capsuleTake one capsule every other day with 10mg for total of 30mg.Disp: 14 capsuleRfl: 0 Prescriptions as of 09/26/2023 - lubiprostone (AMITIZA) 8 mcg capsule Take 1 capsule by mouth once daily. - FLUoxetine (PROZAC) 20 mg capsule Take one capsule every other day with 10mg for total of 30mg. - FLUoxetine (PROZAC) 10 mg capsule Take one capsule every other day with 10mg for total of 30mg. - FLUoxetine (PROZAC) 40 mg capsule Take 1 capsule by mouth every day - fluticasone (FLONASE ALLERGY RELIEF) 50 mcg/actuation nasal spray Flonase Allergy Relief qDay, 0 Refill(s) Start Date: 01/19/21 Status: Ordered - ferrous sulfate (IRON) 325 mg (65 mg iron) tablet Take 325 mg by mouth. - B5/B6/P (more content not included)... [facility]ATT[facility] BAL[facility] ([id number]) 1995 F Date Time Provider Department 07/27/23 [facility] During your visit today, we recorded the following information about you: Eliud Peñaloza APRN.COLD ROLL CATCHER 07/27/2023 8:36 AM Signed Please let patient know their echo is normal. Kayla Mandel MA 07/27/2023 9:15 AM Signed Left message for patient to return call to office MONALISA Fowler Laurie Lynn, LPN 07/27/2023 2:32 PM Signed Spoke with pt and information listed below given. Pt verbalizes understanding. Kenroy Marshall LPN Allergies As of Date: 07/27/2023 Noted Allergy Reaction TEA TREE 07/02/2021 4 - Hives Date Reviewed: 07/11/2023 Reviewed by: Kayla Mandel MA - Fully Assessed Reason for Visit: Results [95] Prescriptions as of 07/27/2023 - lubiprostone (AMITIZA) 24 mcg capsule Take 1 capsule by mouth once daily. - fluticasone (FLONASE ALLERGY RELIEF) 50 mcg/actuation nasal spray Flonase Allergy Relief qDay, 0 Refill(s) Start Date: 01/19/21 Status: Ordered - ferrous sulfate (IRON) 325 mg (65 mg iron) tablet Take 325 mg by mouth. - B5/B6/PABA/cord/rhod /P.ginseng (ADRENAL ESSENCE ORAL) Take by mouth. - cholecalciferol (VITAMIN D-3) 5,000 unit tab Take 5,000 Units by mouth once daily. - MAGNESIUM CITRATE ORAL Take 150 mg by mouth once daily. - docosahexaenoic acid/epa (FISH OIL ORAL) Take 700 mg by mouth once daily. - FLUoxetine (PROZAC) 40 mg capsule Take 1 capsule by mouth every day - pantoprazole DR (PROTONIX) 40 mg tablet Take 40 mg by mouth every morning. - Cetirizine (ZYRTEC) 10 mg cap Take 1 capsule by mouth once daily. Problem List As Of Date: 07/27/2023 (None) Encounter Status:Closed by KENROY MARSHALL on 07/27/23 Normal [facility] ECHOon 07-25-2023 Echocardiography Echocardiography Report: Transthoracic Echo [facility] Date of service: 07/25/2023 3:30:04 PM TESTER Ordering physician: ELIUD PEÑALOZA Indication: Cardiac murmur Technologist: Adamaris Price [facility] Interpreting physician: Nila Roche MD PATIENT: Name: PATTIE BALDERAS : 1995 Age: 28 years Gender: F Primary rhythm: sinus. Height: 160.00 cm BSA: 1.73 m Weight: 67.04 kg BMI: 26.2 kg/m Heart rate 80 bpm Blood pressure 126/67 mmHg Color Doppler was utilized to interrogate the cardiac valves assessed and spectral Doppler was utilized to determine the flow velocities and pressure gradients reported in this exam. Myocardial strain analysis was performed in this exam to aid in the assessment of cardiac function. MEASUREMENTS: Value Indexed Normal Max aortic dimension 2.7 cm Ao < 3.8 Left atrial volume 43 ml (biplane A-L) 25 ml/m Serjio <= 34 LV ID (diastole) 4.5 cm (2D) 2.59 cm/m LV ID (systole) 2.8 cm (2D) 1.64 cm/m IVS, leaflet tips 0.7 cm (2D) Posterior wall thickness 0.7 cm (2D) Left ventricular mass 89 g (2D) 51 g/m Global peak long strain -20.5 % LV stroke volume 50 ml (2D biplane) LV end diastolic volume 83 ml (2D biplane) 48.0 ml/m 29<=EDVi<62 LV end systolic volume 32 ml (2D biplane) 18.8 ml/m Ejection Fraction 61 % (2D biplane) EF > 54 FINDINGS: LEFT VENTRICLE The left ventricle is normal in size. Left ventricular systolic function is normal. Global LV myocardial strain is normal. Normal left ventricular diastolic function. Mitral annular lateral E/e': 5.4. Mitral annular septal E/e': 6.9. Wall Motion: All scored segments are normal. RIGHT VENTRICLE The right ventricle is normal in size. Right ventricular systolic function is normal. RV systolic tissue Doppler velocity is 13.0 cm/s. Tricuspid annular displacement is 2.1 cm. Estimated right atrial pressure is 3 mmHg based on IVC assessment. LEFT ATRIUM The left atrial cavity is normal in size. Pulmonary Veins: The pulmonary venous pattern showed blunted systolic flow. RIGHT ATRIUM The right atrial cavity is normal in size. Inferior Vena Cava: The inferior vena cava appears normal measuring 1.4 cm. The vessel decreases greater than 50 percent with inspiration. MITRAL VALVE The mitral valve leaflets are structurally normal. There is no mitral stenosis. There is no mitral valve regurgitation. The pressure half time is 38 msec. The peak mitral E/A ratio is 1.57. The average mitral E/e' ratio is 6.1. The mitral flow deceleration time is 131 msec. TRICUSPID VALVE The tricuspid valve leaflets are structurally normal. There is trace tricuspid valve regurgitation. AORTIC VALVE The aortic valve cusps are structurally normal. There is no aortic valve stenosis. There is no aortic valve regurgitation. Tricuspid aortic valve. The peak gradient is 8 mmHg (peak velocity = 142.1 cm/s). PULMONIC VALVE The pulmonic valve cusps are structurally normal. There is trace pulmonic valve regurgitation. AORTA The visualized aorta is normal in size. Measurements - Mid ascending aorta 2.7 cm. PERICARDIUM There is no pericardial effusion. CONCLUSIONS: - Exam indication: Cardiac murmur - The left ventricle is normal in size. Left ventricular systolic function is normal. EF = 61 5% (2D biplane). Normal left ventricular diastolic function. - The right ventricle is normal in size. Right ventricular systolic function is normal. - There are no significant valvular abnormalities. - The patient has not had a prior CC echocardiographic exam for comparison. * * * Final * * * [facility] [employer] Image : [id number] Normal [facility] ALLIED HEALTHon 07-11-2023 ALLIED HEALTH HNO ID: [id number] Author: RAMA TANG RT(R) Service: ? Author Type: Cotton Header Type: Allied Health Filed: 07/11/2023 14:31 Note Text: Radiology Service Progress Note DATE OF SERVICE: July 11, 2023 TIME: 2:30 PM PATIENT IDENTITY VERIFICATION COMPLETED USING TWO (2) STANDARD IDENTIFIERS: Name and Date of confirmed by patient verbally. FALL SCREENING: Has the patient had 2 falls in the last year or 1 fall with injury or currently using an Ambulatory Assistive Device (Walker, Cane, Wheelchair, Crutches, etc.)? No PATIENT GENDER DATA: Female. status: : No status: NO. PATIENT RELEVANT IMPLANT DATA REVIEWED: Not Applicable PATIENT PRESENTS WITH AN IMPLANTABLE OR ATTACHED MELLOWING MACHINE OPERATOR: No ALLERGIES: Reviewed and unchanged CONTRAST ALLERGY: NO. EXAM: CT -CONTRAST INDUCED NEPHROPATHY RISK FACTORS: Not applicable CREATININE: Creatinine Date Value Ref Range Status 06/20/2023 0.63 0.58 - 0.96 mg/dL Final Estimated Glomerular Filtration Rate Date Value Ref Range Status 06/20/2023 125 >=60 mL/min/1.73m? Final Comment: Estimated Glomerular Filtration Rate (eGFR) is calculated using the 202 CKD-EPI creatinine equation. This equation utilizes serum creatinine, sex, and age as parameters. The creatinine assay has traceable calibration to isotope dilution-mass spectrometry. Refer to KDIGO guidelines for clinical interpretation. In patients with unstable renal function, e.g. those with acute kidney injury, the eGFR may not accurately reflect actual GFR. P.O.C.T. RESULTS: POC done: Yes, See Lab Tab July 11, 2023 TREATMENT: N/A PERIPHERAL IV DATA: Ambulatory: A peripheral IV was started in the Left antecubital site with a Angio cath: 20 gauge. RADIOLOGY DEPARTMENT: CT; Exam(s) Completed: Abdomen/Pelvis SIGNATURE: RT Antonia(R) PATIENT NAME: Pattie Balderas DATE: July 11, 2023 TIME: 2:30 PM Normal [facility] CNOVon 07-11-2023 [facility] NICKIPATTIE COTTON ([id number]) 1995 F Date Time Provider Department 07/11/23 8:20 AM ELIUD PEÑALOZA During your visit today, we recorded the following information about you: Pulse Respiration Blood pressure Weight 72/minute 14/minute 112/72 64.4 kg Eliud Peñaloza, [employer].COLD ROLL CATCHER 07/11/2023 8:47 AM Signed Chief Complaint Patient presents with: ER F/U HPI Pattie Balderas is a 28 year old female who presents here today for Above Complaints.. Six days ago presented to OSH ED for nausea, vomiting, diarrhea, abdominal pain. CBC, CMP, UA unremarkable. Did not perform CT. Received IV fluids, Zofran, morphine and instructed to follow up with PCP and GI. Today, feeling bloated. Has not had bowel movement in 5 days. Still feeling intermittently nauseous. Has headache that feels like pressure. Decreased PO intake. Tolerating liquids and urinating normally, however not able to eat solid foods secondary to nausea and abdominal pain. Is passing gas. Has EGD in August scheduled in August. Does not see GI until October. Past medical history, appointments, medications, allergies reviewed. Previous Medical History PAST MEDICAL HISTORY Diagnosis Date Depression Endometriosis Generalized anxiety disorder IBS (irritable bowel syndrome) Insulin resistance Ischemic hepatitis Ovarian cyst PCOS (polycystic ovarian syndrome) Previous Surgical History PAST SURGICAL HISTORY Procedure Laterality Date COLONOSCOPY SCREENING L'SCOPE DX W/WO BRUSHINGS/WASHINGS 04/2021 REVISE MEDIAN N/CARPAL TUNNEL SURG Left 06/2011 Family History FAMILY HISTORY Adopted: Yes Patient Allergies ALLERGIES Allergen Reactions Tea Tree Hives Current Medications Current Outpatient Medications on File Prior to Visit Medication Sig fluticasone (FLONASE ALLERGY RELIEF) 50 mcg/actuation nasal spray Flonase Allergy Relief qDay, 0 Refill(s) Start Date: 01/19/21 Status: Ordered ferrous sulfate (IRON) 325 mg (65 mg iron) tablet Take 325 mg by mouth. B5/B6/PABA/cord/rhod /P.ginseng (ADRENAL ESSENCE ORAL) Take by mouth. cholecalciferol (VITAMIN D-3) 5,000 unit tab Take 5,000 Units by mouth once daily. MAGNESIUM CITRATE ORAL Take 150 mg by mouth once daily. docosahexaenoic acid/epa (FISH OIL ORAL) Take 700 mg by mouth once daily. lubiprostone (AMITIZA) 24 mcg capsule Take 1 capsule by mouth once daily. FLUoxetine (PROZAC) 40 mg capsule Take 1 capsule by mouth every day pantoprazole DR (PROTONIX) 40 mg tablet Take 40 mg by mouth every morning. Cetirizine (ZYRTEC) 10 mg cap Take 1 capsule by mouth once daily. No current facility-administere d medications on file prior to visit. Social History Social History Tobacco Use Smoking status: Never Smokeless tobacco: Never Vaping Use Vaping Use: Never used Substance Use Topics Alcohol use: Yes Comment: once a year Drug use: Never Review of Symptoms REVIEW OF SYSTEMS See HPI EXAM: BP 112/72 Pulse 72 Resp 14 Wt 64.4 kg (142 lb) LMP 06/26/2023 BMI 25.15 kg/m? General Appearance: Well appearing, alert, in no acute distress, well-hydrated, well nourished.. Lungs: Lungs clear to auscultation. No wheezing, rhonchi, rales.. Heart: RRR without murmur, gallop, or rubs. No ectopy. Abdomen: Bowel sounds WNL, Positive findings: tenderness moderate LLQ and generalized. Health Maintenance List Hepatitis C Screening Never done HIV Screening Never done Hepatitis B Vaccine(1 of 3 - 19+ 3-dose series) Never done Covid-19 Vaccine(2022- season) due on 12/23/2022 Depression Assessment Never done Pap Testing due on 03/21/2026 DTaP,Tdap,Td Vaccine(2 - Td or Tdap) due on 01/19/2031 Influenza Vaccine Completed HPV Vaccine Aged Out ASSESSMENT/PLAN: 1. Left lower quadrant abdominal pain - ICD9: 789.04, ICD10: R10.32 (primary diagnosis) - Work up with CT Abdomen/Pelvis and KUB - CT ABD/PEL W IVCON - IV CONTRAST (RADIOLOGY PROCEDURE) - ENTERIC CONTRAST (RADIOLOGY PROCEDURE) - XR ABDOMEN 1V SUPINE - XR ABDOMEN 1V SUPINE 2. Nausea and vomiting, unspecified vomiting type - ICD9: 787.01, ICD10: R11.2 - XR ABDOMEN 1V SUPINE - XR ABDOMEN 1V SUPINE E Aravind [employer] Student I have personally seen and examined the patient and performed the medical-decision making components. I have reviewed the Advanced Practice Registered Nurse ([employer]) student's documentation and verified the findings in the note as written. Any additions or changes are noted in bold/italics. Eliud Peñaloza APRN.COLD ROLL CATCHER Allergies As of Date: 07/11/2023 Noted Allergy Reaction TEA TREE 07/02/2021 4 - Hives Date Reviewed: 07/11/2023 Reviewed by: Kayla Mandel MA - Fully Assessed Reason for Visit: ER F/U [41] Primary Visit Diagnosis:Left lower quadrant abdominal pain [R10.32] Other Visit Diagnosis:Nausea and vomiting, unspecified vomiting type [R11.2] (more content not included)... Normal [facility] FABRIZIONon 07-11-2023 CNPN Telephone ([facility]) NICKIPATTIE COTTON ([id number]) 1995 F Date Time Provider Department 07/11/23 ELIUD PEÑALOZA During your visit today, we recorded the following information about you: Eliud Peñaloza APRN.FABRIZIO 07/11/2023 9:37 AM Signed Please let patient know their xray is normal. Lilia Tan MA 07/11/2023 9:47 AM Signed Pt notified of results via [employer]. Lilia Tan Ma Allergies As of Date: 07/11/2023 Noted Allergy Reaction TEA TREE 07/02/2021 4 - Hives Date Reviewed: 07/11/2023 Reviewed by: Kayla Mandel MA - Fully Assessed Reason for Visit: Results [95] Prescriptions as of 07/11/2023 - iv contrast (will be provided with radiology test) CT ABD/PEL -Inject, intravenously, once for 1 dose.No IV access, insert saline lock prior to the beginning of sedation, infusion, injection of imaging exam. Discontinue saline lock post exam. If Pt. has a central line or IVAD, may access for administration according to line specific nursing protocol. Once exam is complete flush line and de-access according to line specific nursing protocol in the CT contrast administration guidelines link. - enteric contrast (will be provided with radiology test) For CT ABD/PEL W IVCON Routine order Administer, As Directed One Time Only, via Oral, Rectal, both Oral and Rectal, Enteric Tube, Stoma or Indwelling Catheter, Enteric Contrast as designated per enteric contrast guidelines - fluticasone (FLONASE ALLERGY RELIEF) 50 mcg/actuation nasal spray Flonase Allergy Relief qDay, 0 Refill(s) Start Date: 01/19/21 Status: Ordered - ferrous sulfate (IRON) 325 mg (65 mg iron) tablet Take 325 mg by mouth. - B5/B6/PABA/cord/rhod /P.ginseng (ADRENAL ESSENCE ORAL) Take by mouth. - cholecalciferol (VITAMIN D-3) 5,000 unit tab Take 5,000 Units by mouth once daily. - MAGNESIUM CITRATE ORAL Take 150 mg by mouth once daily. - docosahexaenoic acid/epa (FISH OIL ORAL) Take 700 mg by mouth once daily. - lubiprostone (AMITIZA) 24 mcg capsule Take 1 capsule by mouth once daily. - FLUoxetine (PROZAC) 40 mg capsule Take 1 capsule by mouth every day - pantoprazole DR (PROTONIX) 40 mg tablet Take 40 mg by mouth every morning. - Cetirizine (ZYRTEC) 10 mg cap Take 1 capsule by mouth once daily. Problem List As Of Date: 07/11/2023 (None) Encounter Status:Closed by LILIA TAN on 07/11/23 [facility] BAL[facility] ([id number]) 1995 F Date Time Provider Department 07/11/23 ELIUD PEÑALOZA During your visit today, we recorded the following information about you: Eliud Peñaloza APRN.[facility] 07/11/2023 3:20 PM Signed Please let patient know their CT is normal. Lilia Tan MA 07/11/2023 3:24 PM Signed Pt notified of results via [employer]. Lilia Tan Ma Allergies As of Date: 07/11/2023 Noted Allergy Reaction TEA TREE 07/02/2021 4 - Hives Date Reviewed: 07/11/2023 Reviewed by: Kayla Mandel MA - Fully Assessed Reason for Visit: Results [95] Prescriptions as of 07/11/2023 - iv contrast (will be provided with radiology test) CT ABD/PEL -Inject, intravenously, once for 1 dose.No IV access, insert saline lock prior to the beginning of sedation, infusion, injection of imaging exam. Discontinue saline lock post exam. If Pt. has a central line or IVAD, may access for administration according to line specific nursing protocol. Once exam is complete flush line and de-access according to line specific nursing protocol in the CT contrast administration guidelines link. - enteric contrast (will be provided with radiology test) For CT ABD/PEL W IVCON Routine order Administer, As Directed One Time Only, via Oral, Rectal, both Oral and Rectal, Enteric Tube, Stoma or Indwelling Catheter, Enteric Contrast as designated per enteric contrast guidelines - fluticasone (FLONASE ALLERGY RELIEF) 50 mcg/actuation nasal spray Flonase Allergy Relief qDay, 0 Refill(s) Start Date: 01/19/21 Status: Ordered - ferrous sulfate (IRON) 325 mg (65 mg iron) tablet Take 325 mg by mouth. - B5/B6/PABA/cord/rhod /P.ginseng (ADRENAL ESSENCE ORAL) Take by mouth. - cholecalciferol (VITAMIN D-3) 5,000 unit tab Take 5,000 Units by mouth once daily. - MAGNESIUM CITRATE ORAL Take 150 mg by mouth once daily. - docosahexaenoic acid/epa (FISH OIL ORAL) Take 700 mg by mouth once daily. - lubiprostone (AMITIZA) 24 mcg capsule Take 1 capsule by mouth once daily. - FLUoxetine (PROZAC) 40 mg capsule Take 1 capsule by mouth every day - pantoprazole DR (PROTONIX) 40 mg tablet Take 40 mg by mouth every morning. - Cetirizine (ZYRTEC) 10 mg cap Take 1 capsule by mouth once daily. Problem List As Of Date: 07/11/2023 (None) Encounter Status:Closed by LILIA TAN on 07/11/[address] [facility] [address] ABD/PEL W IVCONon 024 CT ABD/PEL W IVCON * * *Final Report* * * DATE OF EXAM: Jul 11 2023 2:25PM [facility] 0530 - CT ABD/PEL W IVCON / PROCEDURE REASON: Left lower quadrant abdominal pain * * * * Physician Interpretation * * * * EXAMINATION: CT ABDOMEN AND PELVIS WITH IV CONTRAST CLINICAL HISTORY: Left lower quadrant abdominal pain TECHNIQUE: CT of the abdomen and pelvis was performed using standard technique, scanning from just above the dome of the diaphragm to the symphysis pubis. MQ: CTAP_3 Contrast: IV: 100 ml of Omnipaque 350 Oral: 20 ml of Omni 240 10-25ml diluted with water CT Radiation dose: Integrated Dose-length product (DLP) for this visit = 392.83 mGy*cm. CT Dose Reduction Employed: Automated exposure control(AEC) and iterative recon COMPARISON: None. RESULT: Liver: No mass. Biliary: No bile duct dilation. Gallbladder is unremarkable. Spleen: There is a 0.8 cm well-circumscribed low-attenuation lesion within the spleen likely representing cysts. No splenomegaly. Pancreas: No mass or duct dilation. Adrenals: No mass. Kidneys: No mass, calculus or hydronephrosis. GI tract: No dilation or wall thickening. The appendix is not definitively identified. There are no inflammatory changes in the pericecal region to suggest acute appendicitis. Lymph nodes: No abdominal or pelvic lymphadenopathy. Mesentery/Peritoneum : No ascites or mass. Retroperitoneum: No mass. Vasculature: - Abdominal aorta and iliac arteries: No aneurysm. - Celiac and SMA: Patent without stenosis. - Portal venous system (SMV, splenic vein, portal vein and branches): Patent. - Hepatic veins: Patent. Pelvis: No mass, ascites or fluid collection. Follicular changes in both ovaries. Bones/Soft Tissues: Lungs are unremarkable. Fat-containing umbilical hernia. Lower thorax: Unremarkable. Museum Exhibit Technician (topogram) images: No additional findings. IMPRESSION: No acute findings in the abdomen and pelvis. Berry Picker Machine Operator: [facility] Transcribe Date/Time: Jul 11 2023 2:42P Dictated by : STONE FLOREZ MD This examination was interpreted and the report reviewed and electronically signed by: STONE FLOREZ MD on Jul 11 2023 3:07PM EST [id number] CN Normal [facility] CT Abdomen and Pelvis W cont rast Kristy 07-11-2023 [facility] XR ABDOMEN 1V SUPINEon 07-10 XR ABDOMEN 1V SUPINE * * *Final Report* * * DATE OF EXAM: Jul 11 2023 8:59AM WOX [id number] - XR ABDOMEN 1V SUPINE / PROCEDURE REASON: multiple diagnoses * * * * Physician Interpretation * * * * Indication: Left lower quadrant abdominal pain, nausea and vomiting Comparison: None 2 x-rays of the abdomen are obtained. There is a non-obstructed bowel gas pattern. There is no hepatomegaly or splenomegaly. No abnormal calcifications are visualized. There are no acute osseous abnormalities. IMPRESSION: NO ACUTE ABDOMINAL PATHOLOGY VISUALIZED Berry Picker Machine Operator: [facility] Transcribe Date/Time: Jul 11 2023 9:07A Dictated by : STEVEN BECKER MD This examination was interpreted and the report reviewed and electronically signed by: STEVEN BECKER MD on Jul 11 2023 9:08AM EST [id number] CN Normal [facility] XR Abdomen Supine and Uprigh ton 07-11-2023 IMPRESSION: NO ACUTE ABDOMINAL PATHOLOGY VISUALIZED Berry Picker Machine Operator: [facility] Transcribe Date/Time: Jul 11 2023 9:07A Dictated by : STEVEN BECKER MD This examination was interpreted and the report reviewed and electronically signed by: STEVEN BECKER MD on Jul 11 2023 9:08AM EST DIVISION OF RADIOLOGY * * *Final Report* * * DATE OF EXAM: Jul 11 2023 8:59AM WOX [id number] - XR ABDOMEN 1V SUPINE / PROCEDURE REASON: multiple diagnoses * * * * Physician Interpretation * * * * Indication: Left lower quadrant abdominal pain, nausea and vomiting Comparison: None 2 x-rays of the abdomen are obtained. There is a non-obstructed bowel gas pattern. There is no hepatomegaly or splenomegaly. No abnormal calcifications are visualized. There are no acute osseous abnormalities. DIVISION OF RADIOLOGY Provider, [facility] - 07/11/2023 * * *Final Report* * * DATE OF EXAM: Jul 11 2023 8:59AM WOX [id number] - XR ABDOMEN 1V SUPINE / PROCEDURE REASON: multiple diagnoses * * * * Physician Interpretation * * * * Indication: Left lower quadrant abdominal pain, nausea and vomiting Comparison: None 2 x-rays of the abdomen are obtained. There is a non-obstructed bowel gas pattern. There is no hepatomegaly or splenomegaly. No abnormal calcifications are visualized. There are no acute osseous abnormalities. IMPRESSION IMPRESSION: NO ACUTE ABDOMINAL PATHOLOGY VISUALIZED Berry Picker Machine Operator: [facility] Transcribe Date/Time: Jul 11 2023 9:07A Dictated by : STEVEN BECKER MD This examination was interpreted and the report reviewed and electronically signed by: STEVEN BECKER MD on Jul 11 2023 9:08AM EST [facility] Radiology Study observation (narrative) [facility] XR Abdomen Supine and Uprigh tOrdered By: [facility] Provider on 07-11-2023 [facility] Absolute lymphocyte countOrd ered By: Mandeep Flynn on 07-06-2023 Lymphocytes Auto (Unsp spec) [#/Vol] 0.25 10*3/uL 0.83-4.51 [facility] Automated lymphocyte count a s percentage of total leukocytesOrdered By: Mandeep Flynn on 07-06-2023 Lymphocytes/100 WBC Auto (Unsp spec) 2.7 % 19-41 [facility] Basophil percentageOrdered B y: Mandeep Flynn on 07-06-2023 Basophil percentage 0 SEEN /hpf 0-[address] [facility] Basophils/100 WBC (Bld) 0.2 % 0-1 [facility] Bilirubin [Mass/Vol] 0.90 mg/dL 0.20-1.[address] [facility] Comment on above: For patients on eltr ombopag therapy, use of Dimension [place] TBIL is not recommended. Chloride [Moles/Vol] 107 mmol/L 98-[address] [facility] Eosinophils/100 WBC (Bld) 0.0 % 0-5 [facility] Glucose [Mass/Vol] 126 mg/dL 74-106 [facility] Comment on above: Fasting Glucose resu lt greater than or equal to 126 mg/dL suggests DIABETES MELLITUS per A.D.A. criteria. Hemoglobin (Bld) [Mass/Vol] 13.6 g/dL 12.0-15.0 [facility] Monocytes/100 WBC (Bld) 3.8 % 0-10 [facility] Neutrophils (Bld) [#/Vol] 8.5 10*3/uL 2.0-7.7 [facility] Neutrophils/100 WBC (Bld) 93.0 % 47-70 [facility] Potassium [Moles/Vol] 3.6 mmol/L 3.5-5.1 [facility] Protein [Mass/Vol] 7.0 g/dL 6.4-8.2 [facility] Sodium [Moles/Vol] 140 mmol/L 136-145 [facility] WBC (Bld) [#/Vol] 9.1 10*3/uL 4.4-11.0 [facility] Bilirubin Test strip Ql (U)O rdered By: Mandeep Flynn on 07-06-2023 Bilirubin Ql (U) 1 mg/dL Negative [facility] Comment on above: COLOR OF URINE MAY A FFECT DIPSTICK RESULTS. Determination of erythrocyte mean corpuscular volume (MCV)Ordered By: Mandeep Flynn on 07-06-2023 MCV (RBC) [Entitic vol] 87.2 fL 81-99 [facility] Erythrocyte distribution wid th ratioOrdered By: Mandeep Flynn on 07-06-2023 Erythrocyte distribution width (RBC) [Ratio] 12.6 % 11.6-14.6 [facility] Erythrocyte distribution wid th standard deviationOrdered By: Mandeep Flynn on 07-06-2023 Erythrocyte distribution width (RBC) [Entitic vol] 39.6 fL 35.1-43.9 [facility] Hematocrit Auto (Bld) [Volum e fraction]Ordered By: Mandeep Flynn on 07-06-2023 Hematocrit (Bld) [Volume fraction] 40.8 % 37-47 [facility] Immature granulocytes/100 WB C Auto (Bld)Ordered By: Mandeep Flynn on 07-06-2023 Immature granulocytes/100 WBC (Bld) 0.300 % 0.0-0.9 [facility] Comment on above: IG% - Immature Granu locytes (promyelocytes, myelocytes and metamyelocytes) > 1% indicates that a LEFT SHIFT is Present. Ketones Test strip Ql (U)Ord ered By: Mandeep Flynn on 07-06-2023 Ketones Ql (U) 5 mg/dl Negative [facility] Laboratory - Chemistry and C hemistry - challengeOrdered By: Mandeep Flynn on 07-06-2023 Albumin/Globulin [Mass ratio] 1.1 {ratio} 0.9-2.4 [facility] ALP [Catalytic activity/Vol] 51 U/L 45-117 [facility] ALT [Catalytic activity/Vol] 26 U/L 13-56 [facility] CO2 [Moles/Vol] 26.0 mmol/L 21.0-32.0 [facility] Globulin (S) [Mass/Vol] 3.3 g/dL 2.2-4.2 [facility] Lipase [Catalytic activity/Vol] 29 U/L 13-75 [facility] Comment on above: Please note:LIPASE r evised reference range effective 22. New Lipase methodology. Expected to produce lower values than the previous assay method. NEW Reference Range: 13 - 75 U/L Urea nitrogen/Creatinine [Mass ratio] 23.9 mg/mg 10-20 [facility] Laboratory - Hematology and Cell countsOrdered By: Mandeep Flynn on 07-06-2023 MCH (RBC) [Entitic mass] 29.1 pg 27.0-32.0 [facility] MCHC (RBC) [Mass/Vol] 33.3 g/dL 32-36 [facility] Nucleated RBC/100 WBC (Bld) [Ratio] 0 % 0-5 [facility] Platelet mean volume (Bld) [Entitic vol] 11.1 fL 6.2-12.0 [facility] Platelets (Bld) [#/Vol] 186 10*3/uL 150-450 [facility] Mucus LM Ql (Urine sed)Order ed By: Mandeep Flynn on 07-06-2023 Mucus Ql (Urine sed) 0 SEEN /hpf [facility] Nitrite Test strip Ql (U)Ord ered By: Mandeep Flynn on 07-06-2023 Nitrite Ql (U) Negative Negative [facility] No Panel InformationOrdered By: Mandeep Flynn on 07-06-2023 Urine RBC 0 SEEN /hpf 0-5 [facility] Estimated Creatinine Clearance Calc 102.78 ml/min [facility] Estimated GFR (MDRD) Amer 126 mL/min >60 [facility] Comment on above: GFR Calc Estimated GFR (MDRD) Non-Af Amer 104 mL/min >60 [facility] Comment on above: Non- GFR Calc Protein Test strip Ql (U)Ord ered By: Mandeep Flynn on 07-06-2023 Protein Ql (U) 30 mg/dl Negative [facility] RBC Auto (Bld) [#/Vol]Ordere d By: Mandeep Flynn on 07-06-2023 RBC (Bld) [#/Vol] 4.68 10*6/uL 4.2-5.4 [facility] Serum or plasma calcium clau urement (mass/volume)Ordered By: Mandeep Flynn on 07-06-2023 Calcium [Mass/Vol] 8.5 mg/dL 8.5-10.1 [facility] Serum or plasma choriogonado tropin detectionOrdered By: Mandeep Flynn on 07-06-2023 HCG ( test) Ql Negative [facility] Serum or plasma creatinine m easurement (mass/volume)Ordered By: Mandeep Flynn on 07-06-2023 Creatinine [Mass/Vol] 0.71 mg/dL 0.55-1.02 [facility] Comment on above: The validity of the calculated GFR & GFRAA in patients over 70 years has not been determined. Clinical correlation is essential. Serum or plasma urea nitroge n measurement (mass/volume)Ordered By: Mandeep Flynn on 07-06-2023 Urea nitrogen [Mass/Vol] 17 mg/dL 7-18 [facility] Squamous epithelial cells de tection in urine sediment by light microscopyOrdered By: Mandeep Flynn on 07-06-2023 Epithelial cells.squamous LM Ql (Urine sed) 0-5 SEEN /hpf 5-10 [facility] Thin prep Papanicolaou smear with manual screeningOrdered By: Mandeep Flynn on 07-06-2023 Thin prep Papanicolaou smear with manual screening 3.7 g/dL 3.2-5.0 [facility] Thin prep Papanicolaou smear with manual screening 25 U/L 15-37 [facility] Thin prep Papanicolaou smear with manual screening 7 5-15 [facility] Urine blood detectionOrdered By: Mandeep Flynn on 07-06-2023 RBC Ql (U) Negative Negative [facility] Urine clarityOrdered By: Clemencia Flynn on 07-06-2023 Clarity (U) Clear Clear [facility] Urine color determinationOrd ered By: Mandeep Flynn on 07-06-2023 Color (U) Yellow Yellow [facility] Urine glucose detectionOrder ed By: Mandeep Flynn on 07-06-2023 Glucose Ql (U) Normal mg/dl Normal [facility] Urine leukocyte esterase det ection by dipstickOrdered By: Mandeep Flynn on 07-06-2023 Leukocyte esterase Test strip Ql (U) 25 /ul Negative [facility] Urine pHOrdered By: Mandeep le on 07-06-2023 pH (U) 7.0 [pH] 5.0 - 8.0 [facility] Urine sediment bacteria coun t by microscopy (number/high power field)Ordered By: Mandeep Flynn on 07-06-2023 Bacteria LM.HPF (Urine sed) [#/Area] 0 /[HPF] None Seen [facility] Urine specific gravity measu rementOrdered By: Mandeep Flynn on 07-06-2023 Specific gravity (U) [Rel density] 1.010 1.002-1.030 [facility] Urine urobilinogen measureme ntOrdered By: Mandeep Flynn on 07-06-2023 Urobilinogen Ql (U) Normal mg/dl Normal [facility] ESR Westergren method (Bld) [Velocity]on 06-29-2023 ESR (Bld) [Velocity] 2 mm/h 0 - 20 mm/hr Cl [facility] Comprehensive metabolic 2000 panelon 06-20-2023 Albumin [Mass/Vol] 4.5 g/dL 3.9 - 4.9 g/dL [facility] ALP [Catalytic activity/Vol] 59 U/L 34 - 123 U/L [facility] ALT [Catalytic activity/Vol] 16 U/L 7 - 38 U/L [facility] Anion gap [Moles/Vol] 11 mmol/L 9 - 18 mmol/L [facility] AST [Catalytic activity/Vol] 18 U/L 13 - 35 U/L [facility] Bilirubin [Mass/Vol] 0.3 mg/dL 0.2 - 1 .3 mg/dL [facility] Calcium [Mass/Vol] 9.7 mg/dL 8.5 - 10. 2 mg/dL [facility] Chloride [Moles/Vol] 105 mmol/L 97 - 10 5 mmol/L [facility] CO2 [Moles/Vol] 24 mmol/L 22 - 30 mmol/L [facility] Creatinine [Mass/Vol] 0.63 mg/dL 0.58 - 0.96 mg/dL [facility] Estimated Glomerular Filtration Rate 125 mL/min/1.73m >=60 mL/min/1.73m [facility] Glucose [Mass/Vol] 75 mg/dL 74 - 99 mg/dL [facility] Potassium [Moles/Vol] 4.1 mmol/L 3.7 - 5.1 mmol/L [facility] Protein [Mass/Vol] 6.8 g/dL 6.3 - 8.0 g/dL [facility] Sodium [Moles/Vol] 140 mmol/L 136 - 144 mmol/L [facility] Urea nitrogen [Mass/Vol] 11 mg/dL 7 - 21 mg/d L [facility] FERRITIN BLDon 06-20-2023 Ferritin [Mass/Vol] 17.2 ng/mL 14.7 - 2 05.1 ng/mL [facility] FOLATE SERUMon 06-20-2023 Folate [Mass/Vol] 6.2 ng/mL >4.7 ng/mL [facility] HbA1c (Bld)on 06-20-2023 Average glucose Estimated from glycated hemoglobin (Bld) [Mass/Vol] 91 mg/dL [facility] HbA1c (Bld) [Mass fraction] 4.8 % 4.3 - 5.6 % [facility] LIPID PANEL, NONFASTINGon Cholesterol [Mass/Vol] 169 mg/dL <200 mg/dL [facility] HDL Cholesterol, Nonfasting 57 mg/dL >39 mg/dL [facility] LDL Cholesterol, Nonfasting 101 mg/dL High <100 mg/dL [facility] LDL/HDL Ratio, Nonfasting 1.77 mg/dL <2.54 mg/dL [facility] Non HDL Cholesterol, Nonfasting 112 mg/dL <130 mg/dL [facility] Total Chol/HDL Ratio, Nonfasting 2.96 mg/dL <5.10 mg/dL [facility] Triglycerides, Nonfasting 55 mg/dL <150 mg/dL [facility] VLDL Cholesterol, Nonfasting 11 mg/dL <30 mg/dL [facility] T3 BLDon 06-20-2023 T3 [Mass/Vol] 114 ng/dL 79 - 165 ng/dL [facility] T4 FREE/FREE THYROXon 2023 Free T4 [Mass/Vol] 1.1 ng/dL 0.9 - 1.7 ng/dL [facility] THYROID PEROXIDASE ANTIBODY BLOODon 06-20-2023 TPO Ab Qn 13.6 [IU]/mL High <5.6 IU/mL [facility] TSH BLDon 06-20-2023 TSH Qn 2.540 m[IU]/L 0.270 - 4.200 mIU/L [facility] VITAMIN B12 BLOODon 06-20-19 Cobalamin (Vitamin B12) [Mass/Vol] 799 pg/mL 232 - 1,245 pg/mL [facility] .Auto Diffon 03-01-2023 Basophil, Absolute 0.0 10 3/mcL Normal 0.0-0.2 [facility] ([place]) Comment on above: Performed By: #### V IDH, ANEU, ADIFF, CBC #### [address] [address] Basophils/100 WBC (Bld) 0.6 % Normal 0.0-2.5 [facility] ([place]) Comment on above: Performed By: #### V IDH, ANEU, ADIFF, CBC #### [address] [address] Eosinophil, Absolute 0.2 10 3/mcL Normal 0.0-0.4 [facility] ([place]) Comment on above: Performed By: #### V IDH, ANEU, ADIFF, CBC #### [address] [address] Eosinophils/100 WBC (Bld) 3.5 % Normal 0.0-7.0 [facility] ([place]) Comment on above: Performed By: #### V IDH, ANEU, ADIFF, CBC #### [address] [address] Lymphocyte, Absolute 1.9 10 3/mcL Normal 0.8-3.9 [facility] ([place]) Comment on above: Performed By: #### V IDH, ANEU, ADIFF, CBC #### [address] [address] Lymphocytes/100 WBC (Bld) 31.3 % Normal 10.0-50.0 [facility] ([place]) Comment on above: Performed By: #### V IDH, ANEU, ADIFF, CBC #### [address] [address] Monocyte, Absolute 0.6 10 3/mcL Normal 0.2-1.0 [facility] ([place]) Comment on above: Performed By: #### V IDH, ANEU, ADIFF, CBC #### [address] [address] Monocytes/100 WBC (Bld) 9.7 % Normal 1.7-13.0 [facility] ([place]) Comment on above: Performed By: #### V IDH, ANEU, ADIFF, CBC #### [address] [address] Neutrophils/100 WBC (Bld) 54.9 % Normal 37.0-80.0 [facility] ([place]) Comment on above: Performed By: #### V IDH, ANEU, ADIFF, CBC #### [address] [address] .NEUABSon 03-01-2023 Neutrophil, Absolute 3.3 10 3/mcL Normal 2.9-6.2 [facility] ([place]) Comment on above: Performed By: #### V IDH, ANEU, ADIFF, CBC #### [address] [address] CBCon 03-01-2023 Erythrocyte distribution width (RBC) [Ratio] 13.8 % Normal 11.5-14.5 [facility] ([place]) Comment on above: Performed By: #### V IDH, ANEU, ADIFF, CBC #### [address] [address] Hematocrit (Bld) [Volume fraction] 42.9 % Normal 37.0-47.0 [facility] ([place]) Comment on above: Performed By: #### V IDH, ANEU, ADIFF, CBC #### [address] [address] Hgb 14.6 G/dL Normal 12.0-16.0 [facility] ([place]) Comment on above: Performed By: #### V IDH, ANEU, ADIFF, CBC #### [address] [address] MCH (RBC) [Entitic mass] 29.6 pg Normal 27.0-31.2 [facility] ([place]) Comment on above: Performed By: #### V IDH, ANEU, ADIFF, CBC #### [address] [address] MCHC 34.0 G/dL Normal 33.0-37.0 [facility] ([place]) Comment on above: Performed By: #### V IDH, ANEU, ADIFF, CBC #### [address] [address] MCV (RBC) [Entitic vol] 87.1 fL Normal 80.0-94.0 [facility] ([place]) Comment on above: Performed By: #### V IDH, ANEU, ADIFF, CBC #### [address] [address] Platelet 190 10 3/mcL Normal 130-400 [facility] ([place]) Comment on above: Performed By: #### V IDH, ANEU, ADIFF, CBC #### [address] [address] Platelet mean volume (Bld) [Entitic vol] 9.0 fL Normal 7.4-10.4 [facility] ([place]) Comment on above: Performed By: #### V IDH, ANEU, ADIFF, CBC #### [address] [address] RBC 4.93 10 6/mcL Normal 4.20-5.40 [facility] ([place]) Comment on above: Performed By: #### V IDH, ANEU, ADIFF, CBC #### [address] [address] WBC 5.9 10 3/mcL Normal 4.6-10.8 [facility] ([place]) Comment on above: Performed By: #### V IDH, ANEU, ADIFF, CBC #### [address] [address] LABORATORYOrdered By: SYSTEM SYSTEM on 03-01-2023 25-hydroxyvitamin D3 [Mass/Vol] 50.1 ng/mL Invalid Interpretation Code AO ADM SS Comment on above: Interpretive Data: I nterpretive Values Based on Total 25(OH) Vitamin D: Deficient <20 ng/mL Insufficient 20 - <30 ng/mL Sufficient 30-100 ng/mL Basophil, Absolute 0.0 103/mcL Invalid Interpretation Code 0.0 - 0.2 10^3/mcL AO Workflow SS Basophils/100 WBC (Bld) 0.6 % Invalid Interpretation Code 0.0 - 2.5 % AO Workflow SS Eosinophil, Absolute 0.2 103/mcL Invalid Interpretation Code 0.0 - 0.4 10^3/mcL AO Workflow SS Eosinophils/100 WBC (Bld) 3.5 % Invalid Interpretation Code 0.0 - 7.0 % AO Workflow SS Erythrocyte distribution width (RBC) [Ratio] 13.8 % Invalid Interpretation Code 11.5 - 14.5 % AO Workflow SS Hematocrit (Bld) [Volume fraction] 42.9 % Invalid Interpretation Code 37.0 - 47.0 % AO Workflow SS Hemoglobin (Bld) [Mass/Vol] 14.6 G/dL Invalid Interpretation Code 12.0 - 16.0 G/dL AO Workflow SS Lymphocyte, Absolute 1.9 103/mcL Invalid Interpretation Code 0.8 - 3.9 10^3/mcL AO Workflow SS Lymphocytes/100 WBC (Bld) 31.3 % Invalid Interpretation Code 10.0 - 50.0 % AO Workflow SS MCH (RBC) [Entitic mass] 29.6 pg Invalid Interpretation Code 27.0 - 31.2 pg AO Workflow SS MCHC 34.0 G/dL Invalid Interpretation Code 33.0 - 37.0 G/dL AO Workflow SS MCV (RBC) [Entitic vol] 87.1 fL Invalid Interpretation Code 80.0 - 94.0 fL AO Workflow SS Monocyte, Absolute 0.6 103/mcL Invalid Interpretation Code 0.2 - 1.0 10^3/mcL AO Workflow SS Monocytes/100 WBC (Bld) 9.7 % Invalid Interpretation Code 1.7 - 13.0 % AO Workflow SS Neutrophil, Absolute 3.3 103/mcL Invalid Interpretation Code 2.9 - 6.2 10^3/mcL AO Workflow SS Neutrophils/100 WBC (Bld) 54.9 % Invalid Interpretation Code 37.0 - 80.0 % AO Workflow SS Platelet mean volume (Bld) [Entitic vol] 9.0 fL Invalid Interpretation Code 7.4 - 10.4 fL AO Workflow SS Platelets (Bld) [#/Vol] 190 103/mcL Invalid Interpretation Code 130 - 400 10^3/mcL AO Workflow SS RBC (Bld) [#/Vol] 4.93 106/mcL Invalid Interpretation Code 4.20 - 5.40 10^6/mcL AO Workflow SS WBC (Bld) [#/Vol] 5.9 103/mcL Invalid Interpretation Code 4.6 - 10.8 10^3/mcL AO Workflow SS VIDHon 03-01-2023 Vit. D 25-Hydroxy 50.1 ng/mL Normal [facility] ([place]) Comment on above: Result Comment: Inte rpretive Values Based on Total 25(OH) Vitamin D: Deficient <20 ng/mL Insufficient 20 - <30 ng/mL Sufficient 30-100 ng/mL Performed By: #### V IDH, ANEU, ADIFF, CBC #### [place] [address] LABORATORYOrdered By: Joyce Sanchez on 06-04-2021 Albumin BCP dye [Mass/Vol] 4.6 G/dL Invalid Interpretation Code 3.5 - 5.0 G/dL AO ADM SS Albumin/Globulin [Mass ratio] 1.6 {ratio} Invalid Interpretation Code 1.1 - 2.5 ratio AO ADM SS ALT With P-5'-P [Catalytic activity/Vol] 56 U/L Invalid Interpretation Code 14 - 59 U/L AO ADM SS AST With P-5'-P [Catalytic activity/Vol] 23 U/L Invalid Interpretation Code 10 - 40 U/L AO ADM SS Bilirubin [Mass/Vol] 0.9 mg/dL Invalid Interpretation Code 0.2 - 1.0 mg/dL AO ADM SS Calcium [Mass/Vol] 9.6 mg/dL Invalid Interpretation Code 8.4 - 10.2 mg/dL AO ADM SS Chloride [Moles/Vol] 104 mmol/L Invalid Interpretation Code 98 - 107 mmol/L AO ADM SS CO2 [Moles/Vol] 28 mmol/L Invalid Interpretation Code 22 - 29 mmol/L AO ADM SS Creatinine [Mass/Vol] 0.68 mg/dL Invalid Interpretation Code 0.55 - 1.02 mg/dL AO ADM SS Electrolyte Balance 11.0 mEq/L Invalid Interpretation Code 4.0 - 15.0 mEq/L AO ADM SS Globulin 2.8 G/dL Invalid Interpretation Code AO ADM SS Glucose [Mass/Vol] 81 mg/dL Invalid Interpretation Code 70 - 105 mg/dL AO ADM SS Potassium [Moles/Vol] 4.8 mmol/L Invalid Interpretation Code 3.5 - 5.1 mmol/L AO ADM SS Protein [Mass/Vol] 7.4 G/dL Invalid Interpretation Code 6.4 - 8.2 G/dL AO ADM SS Sodium [Moles/Vol] 143 mmol/L Invalid Interpretation Code 136 - 145 mmol/L AO ADM SS TSH Qn 2.02 m[IU]/L Invalid Interpretation Code 0.36 - 3.74 mcIU/mL AO ADM SS Urea nitrogen [Mass/Vol] 10 mg/dL Invalid Interpretation Code 7 - 18 mg/dL AO ADM SS Urea nitrogen/Creatinine [Mass ratio] 15 ratio Invalid Interpretation Code 7 - 27 ratio AO ADM SS LABORATORYOrdered By: SYSTEM SYSTEM on 06-04-2021 GFR 128 ml/min/1.73sqm Invalid Interpretation Code AO Chemistry S GFR Non- 105 ml/min/1.73sqm Inva lid Interpretation Code AO Chemistry S Vital Signs Date Time Vital Sign Value Performing Clinician Eduardo almazan 01-24-2025 13:08-0400 Body height 162.56 cm Eliud Peñaloza CODING QUALITY ANALYST-C Work Phone: [phone])781-706294 [place] [address] 01-24-2025 13:08-0400 Body mass index (BMI) [Ratio] 31.4 kg/m2 Eliud Peñaloza NP-C Work Phone: [phone] [place] [address] 01-24-2025 13:08-0400 Body weight 83.23 kg Eliud Peñaloza CODING QUALITY ANALYST-C Work Phone: [phone])951-855567 [place] [address] 01-24-2025 13:08-0400 Diastolic blood pressure 81 mm[Hg] Eliud Peñaloza CODING QUALITY ANALYST-C Work Phone: [phone])518-294894 [place] [address] 01-24-2025 13:08-0400 Systolic blood pressure 125 mm[Hg] Eliud Peñaloza NP-C Work Phone: [phone])247-174467 [place] [address] 01-13-2025 14:59-0400 Body height 162.56 cm Eliud Peñaloza CODING QUALITY ANALYST-C Work Phone: [phone])[phone] [place] [address] 01-13-2025 14:59-0400 Body mass index (BMI) [Ratio] 30.9 kg/m2 Eliud Peñaloza CODING QUALITY ANALYST-C Work Phone: [phone])[phone] [place] [address] 01-13-2025 14:59-0400 Body weight 81.64 kg Eliud Peñaloza CODING QUALITY ANALYST-C Work Phone: [phone](418)565-973267 [place] [address] 01-13-2025 14:59-0400 Diastolic blood pressure 80 mm[Hg] Eliud Peñaloza CODING QUALITY ANALYST-C Work Phone: [phone] [place] [address] 01-13-2025 14:59-0400 Systolic blood pressure 126 mm[Hg] Eliud Peñaloza CODING QUALITY ANALYST-C Work Phone: [phone])452-218267 [place] [address] 01-01-2025 09:52-0400 Body height 162.56 cm Eliud Peñaloza CODING QUALITY ANALYST-C Work Phone: [phone])892-775167 [place] [address] 01-01-2025 09:52-0400 Body mass index (BMI) [Ratio] 30.4 kg/m2 Eliud Peñaloza CODING QUALITY ANALYST-C Work Phone: [phone])381-706567 [place] [address] 01-01-2025 09:52-0400 Body weight 80.45 kg Eliud Peñaloza CODING QUALITY ANALYST-C Work Phone: [phone])203-693067 [place] [address] 01-01-2025 09:52-0400 Diastolic blood pressure 80 mm[Hg] Eliud Peñaloza CODING QUALITY ANALYST-C Work Phone: [phone])390-079767 [place] [address] 01-01-2025 09:52-0400 Systolic blood pressure 126 mm[Hg] Eliud Peñaloza CODING QUALITY ANALYST-C Work Phone: [phone])111-581067 [place] [address] 12-18-2024 09:42-0400 Body height 162.56 cm Eliud Peñaloza CODING QUALITY ANALYST-C Work Phone: [phone])857-319167 [place] [address] 12-18-2024 09:42-0400 Body mass index (BMI) [Ratio] 29.7 kg/m2 Eliud Peñaloza CODING QUALITY ANALYST-C Work Phone: [phone])[phone] [place] [address] 12-18-2024 09:42-0400 Body weight 78.61 kg Eliud Peñaloza CODING QUALITY ANALYST-C Work Phone: [phone] [place] [address] 12-18-2024 09:42-0400 Diastolic blood pressure 80 mm[Hg] Eliud Peñaloza CODING QUALITY ANALYST-C Work Phone: [phone])229-182667 [place] [address] 12-18-2024 09:42-0400 Systolic blood pressure 119 mm[Hg] Eliud Peñaloza CODING QUALITY ANALYST-C Work Phone: 1(019)588-335067 [place] [address] 12-04-2024 10:07-0400 Body height 162.56 cm Eliud Peñaloza CODING QUALITY ANALYST-C Work Phone: [phone])115-204267 [place] [address] 12-04-2024 10:06-0400 Body mass index (BMI) [Ratio] 28.8 kg/m2 Eliud Peñaloza CODING QUALITY ANALYST-C Work Phone: 1([phone])571-363567 [place] [address] 12-04-2024 10:06-0400 Body weight 76.2 kg Eliud Peñaloza CODING QUALITY ANALYST-C Work Phone: [phone] [place] [address] 12-04-2024 10:06-0400 Diastolic blood pressure 73 mm[Hg] Eliud Peñaloza CODING QUALITY ANALYST-C Work Phone: [phone])[phone] [place] [address] 12-04-2024 10:06-0400 Systolic blood pressure 107 mm[Hg] Eliud Peñaloza CODING QUALITY ANALYST-C Work Phone: [phone])528-780967 [place] [address] 11-20-2024 08:47-0400 Body height 162.56 cm Eliud Peñaloza CODING QUALITY ANALYST-C Work Phone: [phone])[phone] [place] [address] 11-20-2024 08:47-0400 Body mass index (BMI) [Ratio] 28.3 kg/m2 Eliud Peñaloza CODING QUALITY ANALYST-C Work Phone: 1(078)744-187467 [place] [address] 11-20-2024 08:47-0400 Body weight 74.95 kg Eliud Peñaloza CODING QUALITY ANALYST-C Work Phone: [phone])568-732667 [place] [address] 11-20-2024 08:47-0400 Diastolic blood pressure 70 mm[Hg] Eliud Peñaloza CODING QUALITY ANALYST-C Work Phone: [phone] [place] [address] 11-20-2024 08:47-0400 Systolic blood pressure 110 mm[Hg] Eliud Peñaloza CODING QUALITY ANALYST-C Work Phone: [phone](915)777-825367 [place] [address] 11-06-2024 10:59-0400 Body height 162.56 cm Eliud Peñaloza CODING QUALITY ANALYST-C Work Phone: [phone])386-817067 [place] [address] 11-06-2024 10:59-0400 Body mass index (BMI) [Ratio] 27.6 kg/m2 Eliud Peñaloza CODING QUALITY ANALYST-C Work Phone: [phone])293-877667 [place] [address] 11-06-2024 10:59-0400 Body weight 73.19 kg Eliud Peñaloza CODING QUALITY ANALYST-C Work Phone: [phone])013-915067 [place] [address] 11-06-2024 10:59-0400 Diastolic blood pressure 74 mm[Hg] Eliud Peñaloza CODING QUALITY ANALYST-C Work Phone: [phone])489-213667 [place] [address] 11-06-2024 10:59-0400 Systolic blood pressure 114 mm[Hg] Eliud Peñaloza CODING QUALITY ANALYST-C Work Phone: [phone] [place] [address] 09-30-2024 15:34-0400 Body height 162.56 cm Eliud Peñaloza CODING QUALITY ANALYST-C Work Phone: [phone])219-510567 [place] [address] 09-30-2024 15:34-0400 Body mass index (BMI) [Ratio] 27.1 kg/m2 Eliud Peñaloza CODING QUALITY ANALYST-C Work Phone: [phone] [place] [address] 09-30-2024 15:34-0400 Body weight 71.72 kg Eliud Peñaloza CODING QUALITY ANALYST-C Work Phone: [phone] [place] [address] 09-30-2024 15:34-0400 Diastolic blood pressure 77 mm[Hg] Eliud Peñaloza CODING QUALITY ANALYST-C Work Phone: [phone] [place] [address] 09-30-2024 15:34-0400 Systolic blood pressure 114 mm[Hg] Eliud Peñaloza CODING QUALITY ANALYST-C Work Phone: 1(061)337-062867 [place] [id number] 09-03-2024 09:28-0400 Body height 162.56 cm Eliud Peñaloza CODING QUALITY ANALYST-C Work Phone: 6(198)517-434867 [place] [id number] 09-03-2024 09:28-0400 Body mass index (BMI) [Ratio] 25.7 kg/m2 Eliud Peñaloza CODING QUALITY ANALYST-C Work Phone: 3(506)121-813467 [place] [id number] 09-03-2024 09:28-0400 Body weight 68.09 kg Eliud Peñaloza CODING QUALITY ANALYST-C Work Phone: 1(500)974-238967 [place] [id number] 09-03-2024 09:28-0400 Diastolic blood pressure 73 mm[Hg] Eliud Peñaloza CODING QUALITY ANALYST-C Work Phone: 4(247)323-342967 [place] [id number] 09-03-2024 09:28-0400 Systolic blood pressure 120 mm[Hg] Eliud Peñaloza CODING QUALITY ANALYST-C Work Phone: 5(905)136-550267 [place] [id number] 08-06-2024 08:50-0400 Body mass index (BMI) [Ratio] 25.4 kg/m2 Eliud Peñaloza CODING QUALITY ANALYST-C Work Phone: 0(654)[phone] [address] [place] [address] 08-06-2024 08:50-0400 Body weight 67.18 kg Eliud Peñaloza CODING QUALITY ANALYST-C Work Phone: 5(691)026-978567 [place] [address] 08-06-2024 08:50-0400 Diastolic blood pressure 74 mm[Hg] Eliud Peñaloza CODING QUALITY ANALYST-C Work Phone: 7(783)040-200067 [place] [address] 08-06-2024 08:50-0400 Systolic blood pressure 118 mm[Hg] Eliud Peñaloza CODING QUALITY ANALYST-C Work Phone: 7(743)550-743867 [place] [address] 07-24-2024 08:53-0400 Body height 162.56 cm Eliud Peñaloza CODING QUALITY ANALYST-C Work Phone: 7(801)893-970067 [place] [address] 07-24-2024 08:53-0400 Body mass index (BMI) [Ratio] 25.4 kg/m2 Eliud Peñaloza CODING QUALITY ANALYST-C Work Phone: 9(682)249-742867 [place] [address] 07-24-2024 08:53-0400 Body weight 67.24 kg Eliud Peñaloza CODING QUALITY ANALYST-C Work Phone: 1(300)[phone] [place] [address] 07-24-2024 08:53-0400 Diastolic blood pressure 72 mm[Hg] Eliud Peñaloza CODING QUALITY ANALYST-C Work Phone: 3(956)231-397367 [place] [address] 07-24-2024 08:53-0400 Heart rate 92 /min Eliud Knoble CODING QUALITY ANALYST-C Work Phone: [facility] 07-24-2024 08:53-0400 Systolic blood pressure 112 mm[Hg] Eliud Peñaloza CODING QUALITY ANALYST-C Work Phone: [facility] 07-12-2024 08:55-0400 Body height 162.56 cm Eliud Peñaloza CODING QUALITY ANALYST-C Work Phone: [facility] 07-12-2024 08:55-0400 Body mass index (BMI) [Ratio] 25.4 kg/m2 Eliud Peñaloza CODING QUALITY ANALYST-C Work Phone: 2(700)551-715894 [place] [address] 07-12-2024 08:55-0400 Body weight 67.35 kg Eliud Peñaloza CODING QUALITY ANALYST-C Work Phone: [facility] 07-12-2024 08:55-0400 Diastolic blood pressure 72 mm[Hg] Eliud Peñaloza CODING QUALITY ANALYST-C Work Phone: 5(887)894-561194 [place] [address] 07-12-2024 08:55-0400 Systolic blood pressure 112 mm[Hg] Eliud Peñaloza CODING QUALITY ANALYST-C Work Phone: [facility] 05-30-2024 14:16-0500 Body mass index (BMI) [Ratio] 26.39 kg/m2 Eliud Peñaloza [employer].COLD ROLL CATCHER Work Phone: [facility] 05-30-2024 14:16-0500 Body weight 67.59 kg Eliud Peñaloza APRN.COLD ROLL CATCHER Work Phone: [facility] 05-30-2024 14:16-0500 Diastolic blood pressure 73 mm[Hg] Eliud Peñaloza [employer].COLD ROLL CATCHER Work Phone: [facility] 05-30-2024 14:16-0500 Heart rate 99 /min Eliud Peñaloza APRN.COLD ROLL CATCHER Work Phone: [facility] 05-30-2024 14:16-0500 Systolic blood pressure 117 mm[Hg] Eliud Peñaloza [employer].COLD ROLL CATCHER Work Phone: [facility] 09-26-2023 08:46-0400 Body mass index (BMI) [Ratio] 25.69 kg/m2 Eliud Peñaloza [employer].COLD ROLL CATCHER Work Phone: [facility] 09-26-2023 08:46-0400 Body weight 65.77 kg Eliud Peñaloza [employer].COLD ROLL CATCHER Work Phone: [facility] 09-26-2023 08:46-0400 Diastolic blood pressure 71 mm[Hg] Eliud Peñaloza [employer].COLD ROLL CATCHER Work Phone: [facility] 09-26-2023 08:46-0400 Heart rate 86 /min Eliud Peñaloza [employer].COLD ROLL CATCHER Work Phone: [facility] 09-26-2023 08:46-0400 Respiratory rate 14 /min Eliud Peñaloza [employer].COLD ROLL CATCHER Work Phone: [facility] 09-26-2023 08:46-0400 Systolic blood pressure 120 mm[Hg] Eliud Peñaloza [employer].COLD ROLL CATCHER Work Phone: [facility] 07-11-2023 08:05-0400 Body weight 64.41 kg Eliud Peñaloza [employer].COLD ROLL CATCHER Work Phone: [facility] 07-11-2023 08:05-0400 Diastolic blood pressure 72 mm[Hg] Eliud Peñaloza [employer].COLD ROLL CATCHER Work Phone: [facility] 07-11-2023 08:05-0400 Heart rate 72 /min Eliud Peñaloza [employer].COLD ROLL CATCHER Work Phone: [facility] 07-11-2023 08:05-0400 Respiratory rate 14 /min Eliud Peñaloza [employer].COLD ROLL CATCHER Work Phone: [facility] 07-11-2023 08:05-0400 Systolic blood pressure 112 mm[Hg] Eliud Peñaloza [employer].COLD ROLL CATCHER Work Phone: [facility] 07-06-2023 10:00-0400 Diastolic blood pressure 88 mm[Hg] [facility] 07-06-2023 10:00-0400 Heart rate 64 /min [facility] 07-06-2023 10:00-0400 Respiratory rate 16 /min [facility] 07-06-2023 10:00-0400 SaO2% (BldA) [Mass fraction] 99 % [facility] 07-06-2023 10:00-0400 Systolic blood pressure 110 mm[Hg] [facility] 07-06-2023 08:00-0400 Body height 162.56 cm [facility] 07-06-2023 08:00-0400 Body mass index (BMI) [Ratio] 24.6 kg/m2 [facility] 07-06-2023 08:00-0400 Body temperature 97.3 [degF] [facility] 07-06-2023 08:00-0400 Body weight 65.1 kg [facility] 06-26-2023 08:12-0500 Body height 160 cm Danielle Donato MD Work Phone: [facility] 06-26-2023 08:12-0500 Body temperature 97.7 [degF] Danielle Donato MD Work Phone: [facility] 06-26-2023 08:12-0500 Body weight 67.04 kg Danielle Donato MD Work Phone: [facility] 06-26-2023 08:12-0500 Diastolic blood pressure 64 mm[Hg] Danielle Donato MD Work Phone: [facility] 06-26-2023 08:12-0500 Heart rate 83 /min Danielle Donato MD Work Phone: [facility] 06-26-2023 08:12-0500 SaO2% (BldA) [Mass fraction] 98 % Danielle Donato MD Work Phone: [facility] 06-26-2023 08:12-0500 Systolic blood pressure 108 mm[Hg] Danielle Donato MD Work Phone: [facility] 06-20-2023 08:36-0500 Body height 160 cm Eliud Peñaloza APRN.CNP Work Phone: [facility] 06-20-2023 08:36-0500 Body weight 65.32 kg Eliud Peñaloza [employer].COLD ROLL CATCHER Work Phone: [facility] 06-20-2023 08:36-0500 Diastolic blood pressure 60 mm[Hg] Eliud Peñaloza [employer].COLD ROLL CATCHER Work Phone: [facility] 06-20-2023 08:36-0500 Heart rate 88 /min Eliud Peñaloza [employer].COLD ROLL CATCHER Work Phone: [facility] 06-20-2023 08:36-0500 Respiratory rate 14 /min Eliud Peñaloza [employer].COLD ROLL CATCHER Work Phone: [facility] 06-20-2023 08:36-0500 Systolic blood pressure 100 mm[Hg] Eliud Peñaloza [employer].COLD ROLL CATCHER Work Phone: [facility] Encounters Encounter Date Encounter Type Care Provider Facility Start: 02-06-2025 ambulatory Eliud Peñaloza Facilit y:[facility] Start: 02-06-2025 [facility] Start: 01-31-2025 End: 01-31-2025 ambulatory Eliud Peñaloza Facility:[facility] Start: 01-24-2025 End: 01-24-[address] Elke Voss DO -[facility] Work Phone: Start: 01-24-2025 End: 01-24-2025 ambulatory Eliud Peñaloza CODING QUALITY ANALYST-C Work Phone: -[facility] Start: 01-14-2025 End: 01-14-2025 ambulatory FELIPA Prasad [facility] Start: 01-13-2025 End: 01-13-2025 ambulatory Eliud Peñaloza CODING QUALITY ANALYST-C Work Phone: -[facility]imen Start: 01-13-2025 End: 01-13-[address] Jacki Jernigan MD -[facility] Work Phone: Start: 01-13-2025 End: 01-13-[address] Jacki Jernigan MD -[facility] Work Phone: Start: 01-13-2025 End: 01-13-2025 ambulatory Eliud Peñaloza CODING QUALITY ANALYST-C Work Phone: -[facility] Start: 01-13-2025 End: 01-13-2025 ambulatory Eliud Peñaloza Facility:[facility] Start: 01-07-2025 End: 01-07-2025 Refill Eliud Peñaloza [employer] ROLL CATCHER Work Phone: [facility] Comment on above: Refill Request Start: 01-01-2025 End: 01-01-2025 Patient encounter procedure Debra Montalvo CNM -[facility] Work Phone: Start: 01-01-2025 End: 01-01-2025 ambulatory Eliud Peñaloza CODING QUALITY ANALYST-C Work Phone: [facility] Start: 12-18-2024 End: 12-18-2024 ambulatory ADAM [facility] Start: 12-18-2024 End: 12-18-2024 Patient encounter procedure Sherry HAASC -[facility] Work Phone: Start: 12-18-2024 End: 12-18-2024 ambulatory Eliud Peñaloza CODING QUALITY ANALYST-C Work Phone: [facility] Start: 12-17-2024 End: 12-20-2024 Refill Eliud Peñaloza [employer].C[employer] ROLL CATCHER Work Phone: [facility] Comment on above: Refill Request Start: 12-04-2024 End: 12-04-[address] Elke Voss DO -[facility] Work Phone: Start: 12-04-2024 End: 12-04-2024 ambulatory Eliud Peñaloza CODING QUALITY ANALYST-C Work Phone: -[facility] Start: 12-04-2024 End: 12-04-2024 ambulatory Elke Voss Facility:[facility] Start: 11-27-2024 End: 11-27-2024 ambulatory Eliud Peñaloza CODING QUALITY ANALYST-C Work Phone: -Laboratory Start: 11-27-2024 End: 11-27-[address] Jacki Jernigan MD -Laboratory Work Phone: Start: 11-27-2024 End: 11-27-2024 ambulatory Eliud Peñaloza Facility:[facility] Start: 11-20-2024 End: 11-20-2024 ambulatory ADAM MAGGIE [place] Start: 11-20-2024 End: 11-20-2024 Patient encounter procedure Sherry Barone CODING QUALITY ANALYST-C -[facility] Work Phone: Start: 11-20-2024 End: 11-20-2024 ambulatory Eliud Peñaloza CODING QUALITY ANALYST-C Work Phone: -[facility] Start: 11-20-2024 End: 11-20-2024 ambulatory Eliud Peñaloza Facility:[facility] Start: 11-10-2024 End: 11-11-2024 Refill Eliud Peñaloza [employer].COLD ROLL CATCHER Work Phone: [facility] Comment on above: Refill Request Start: 11-06-2024 End: 11-06-[address] Jacki Jernigan MD -[facility] Work Phone: Start: 11-06-2024 End: 11-06-2024 ambulatory Eliud Peñaloza CODING QUALITY ANALYST-C Work Phone: -[facility] Start: 10-11-2024 End: 10-11-2024 ambulatory JACKI JERNIGAN [place] Start: 09-30-2024 End: 09-30-2024 Patient encounter procedure Debra Montalvo CNM -[facility] Work Phone: Start: 09-30-2024 End: 09-30-2024 ambulatory Eliud Peñaloza CODING QUALITY ANALYST-C Work Phone: [facility] Work Phone: Start: 09-25-2024 End: 09-25-2024 ambulatory JESÚS Vences NELLIE [place] Start: 09-10-2024 End: 09-10-2024 ambulatory MARANDA WILLINGHAM [place] Start: 09-03-2024 End: 09-03-[address] Jacki Jernigan MD -[facility] Work Phone: Start: 09-03-2024 End: 09-03-2024 ambulatory Eliud Peñaloza CODING QUALITY ANALYST-C Work Phone: [facility] Work Phone: Start: 08-06-2024 End: 08-06-[address] Elke Voss DO -[facility] Work Phone: Start: 08-06-2024 End: 08-06-2024 ambulatory Eliud Peñaloza Facility:[facility] Start: 07-29-2024 End: 07-29-2024 Non-patient / Non-visit Dr. Dequan Alejandra MD -[facility] Work Phone: Start: 07-29-2024 End: 07-29-2024 ambulatory Eliud Peñaloza CODING QUALITY ANALYST-C Work Phone: [facility] Work Phone: Start: 07-29-2024 End: 07-29-[address] Jacki Jernigan MD -Pulmonary Services/Neurology Work Phone: Start: 07-29-2024 End: 07-29-2024 ambulatory Eliud Peñaloza Facility:[facility] Start: 07-24-2024 End: 07-24-[address] Jacki Jernigan MD -[facility] Work Phone: Start: 07-24-2024 End: 07-24-2024 ambulatory Eliud Peñaloza Facility:[facility] Start: 07-12-2024 End: 07-12-2024 ambulatory Eliud Peñaloza CODING QUALITY ANALYST-C Work Phone: [facility] Work Phone: Start: 07-12-2024 End: 07-12-2024 Patient encounter procedure Debra Montalvo CNM -[facility] Work Phone: Start: 07-12-2024 End: 07-12-2024 ambulatory Eliud Peñaloza Facility:[facility] Start: 07-12-2024 End: 07-12-2024 ambulatory Eliud Peñaloza Facility:[facility] Start: 07-04-2024 End: 07-04-2024 ambulatory Eliud Peñaloza APRN.COLD ROLL CATCHER Work Phone: [facility] Comment on above: Anxiety with depress ion (Primary Dx) Start: 07-04-2024 End: 07-04-2024 Telemedicine consultation with patient Eliud Peñaloza APRN.COLD ROLL CATCHER Work Phone: [facility] Start: 06-21-2024 Non-patient / Non-visit Laura garvey RN -[facility] Work Phone: Start: 06-21-2024 ambulatory Laura Jackson Facility :[facility] Start: 05-30-2024 End: 05-30-2024 Patient encounter procedure Eliud Peñaloza APRN.COLD ROLL CATCHER Work Phone: [facility] Comment on above: Wellness examination (Primary Dx); Encounter for screening examination for other mental health and behavioral disorders; Anxiety with depression; Edgar's disease; Iron deficiency anemia, unspecified iron deficiency anemia type; Screening for diabetes mellitus; Encounter for lipid screening for cardiovascular disease Start: 05-30-2024 End: 05-30-2024 Patient encounter status Eliud Peñaloza APRN.COLD ROLL CATCHER Work Phone: [facility] Work Phone: Start: 05-30-2024 End: 05-30-2024 ambulatory ELIUD PEÑALOZA Facility:[facility] Start: 05-30-2024 Encounter for genera l adult medical examination without abnormal findings ELIUD PEÑALOZA [facility] Start: 05-28-2024 End: 05-28-2024 ambulatory ELIUD PEÑALOZA Facility:[facility] Start: 05-19-2024 End: 05-20-2024 Refill Eliud Peñaloza APRN.COLD ROLL CATCHER Work Phone: [facility] Comment on above: Med Change Request Start: 04-26-2024 End: 04-26-2024 ambulatory Eliud Peñaloza APRN.COLD ROLL CATCHER Work Phone: [facility] Comment on above: Edgar's disease (Primary Dx); Anxiety with depression; Screening for diabetes mellitus; Thyroid antibody positive; Iron deficiency anemia, unspecified iron deficiency anemia type; Encounter for lipid screening for cardiovascular disease Start: 04-26-2024 End: 04-26-2024 Telemedicine consultation with patient Eliud Peñaloza APRN.COLD ROLL CATCHER Work Phone: [facility] Start: 03-26-2024 End: 03-26-2024 ambulatory Eliud Peñaloza APRN.COLD ROLL CATCHER Work Phone: [facility] Comment on above: Anxiety with depress ion Start: 03-26-2024 End: 03-26-2024 Telemedicine consultation with patient Eliud Peñaloza APRN.COLD ROLL CATCHER Work Phone: [facility] Start: 02-28-2024 End: 02-28-2024 Telemedicine consultation with patient Eliud Peñaloza APRN.COLD ROLL CATCHER Work Phone: [facility] Start: 02-28-2024 End: 02-28-2024 ambulatory Eliud Peñaloza APRN.COLD ROLL CATCHER Work Phone: [facility] Comment on above: Anxiety with depress ion (Primary Dx) Start: 01-15-2024 End: 01-15-2024 ambulatory Eliud Peñaloza APRN.COLD ROLL CATCHER Work Phone: [facility] [place] Comment on above: Anxiety with depress ion (Primary Dx) Start: 01-15-2024 End: 01-15-2024 Telemedicine consultation with patient Eliud Peñaloza APRN.COLD ROLL CATCHER Work Phone: [facility] Start: 12-15-2023 End: 12-15-2023 Telemedicine consultation with patient Eliud Peñaloza APRN.COLD ROLL CATCHER Work Phone: [facility] [place] Start: 12-15-2023 End: 12-15-2023 ambulatory Eliud Peñaloza [employer].COLD ROLL CATCHER Work Phone: [facility] Comment on above: Anxiety with depress ion Start: 11-10-2023 ambulatory Eliud slater APRN.COLD ROLL CATCHER Work Phone: [facility] Comment on above: Anxiety meds Start: 10-30-2023 End: 10-30-2023 Telemedicine consultation with patient Eliud Peñaloza APRN.COLD ROLL CATCHER Work Phone: [facility] Start: 10-30-2023 End: 10-30-2023 ambulatory Eliud Peñaloza [employer].COLD ROLL CATCHER Work Phone: [facility] [place] Comment on above: Anxiety with depress ion Start: 10-05-2023 ambulatory Eliud slater APRN.COLD ROLL CATCHER Work Phone: [facility] [place] Start: 10-05-2023 Follow-up encounter Eliud flynn APRN.COLD ROLL CATCHER Work Phone: [facility] [place] Comment on above: Medication Follow Up Start: 09-26-2023 End: 09-26-2023 ambulatory ELIUD PEÑALOZA Facility:[facility] Start: 09-26-2023 End: 09-26-2023 Patient encounter procedure Eliud Peñaloza APRN.COLD ROLL CATCHER Work Phone: [facility] Comment on above: Anxiety with depress ion (Primary Dx) Start: 08-29-2023 ambulatory Eliud slater APRN.COLD ROLL CATCHER Work Phone: [facility] Comment on above: Prozac Start: 07-27-2023 Telephone encounter Eliud flynn APRN.COLD ROLL CATCHER Work Phone: [facility] Comment on above: Results Start: 07-25-2023 End: 07-25-2023 ambulatory ELIUD PEÑALOZA Facility:[facility] Start: 07-11-2023 End: 07-11-2023 ambulatory Eliud Peñaloza [employer].COLD ROLL CATCHER Work Phone: [facility] Comment on above: Next steps Start: 07-11-2023 Telephone encounter Eliud flynn APRN.COLD ROLL CATCHER Work Phone: [facility] Comment on above: Results Start: 07-11-2023 End: 07-11-2023 Subsequent hospital visit by physician [facility] Comment on above: Left lower quadrant abdominal pain [R10.32] Start: 07-11-2023 End: 07-11-2023 Subsequent hospital visit by physician Xr [facility] Work Phone: Radiology Comment on above: Left lower quadrant abdominal pain [R10.32] Start: 07-11-2023 End: 07-11-2023 Patient encounter procedure Eliud Peñaloza APRN.COLD ROLL CATCHER Work Phone: [facility] Comment on above: Left lower quadrant abdominal pain (Primary Dx); Nausea and vomiting, unspecified vomiting type Start: 07-06-2023 Telephone encounter Eliud flynn APRN.COLD ROLL CATCHER Work Phone: [facility] Comment on above: Patient Update Start: 07-06-2023 End: 07-06-2023 Emergency department patient visit [facility] Work Phone: Start: 06-30-2023 Telephone encounter Eliud flynn APRN.COLD ROLL CATCHER Work Phone: [facility] Comment on above: Results Start: 06-26-2023 ambulatory Eliud slater APRN.COLD ROLL CATCHER Work Phone: [facility] Comment on above: Symptoms Start: 06-26-2023 Telephone encounter Eliud flynn APRN.COLD ROLL CATCHER Work Phone: [facility] Comment on above: Question and request for records Start: 06-26-2023 End: 06-26-2023 Patient encounter procedure Danielle Donato MD Work Phone: Endocrinology Comment on above: Thyroid antibody pos itive Start: 06-22-2023 Telephone encounter Eliud flynn APRN.COLD ROLL CATCHER Work Phone: [facility] Comment on above: Results Start: 06-20-2023 End: 06-20-2023 Patient encounter procedure Eliud Peñaloza APRN.COLD ROLL CATCHER Work Phone: [facility] Comment on above: Fatigue, unspecified type (Primary Dx); Iron deficiency anemia, unspecified iron deficiency anemia type; Dizziness; Abnormal cardiac valve; Encounter for lipid screening for cardiovascular disease; Screening for diabetes mellitus Start: 06-19-2023 Telephone encounter Eliud flynn APRN.COLD ROLL CATCHER Work Phone: [facility] Comment on above: Dizziness Start: 06-14-2023 ambulatory Priscila Funescalf MARY.COLD ROLL CATCHER Work Phone: OB/Gynecology Comment on above: Period symptoms Start: 03-31-2023 Telephone encounter Neurology [facility] Comment on above: EMG; Appointment Start: 03-01-2023 End: 03-02-[address] FARIDHE NORTH DO Facility:[facility] Start: 03-01-2023 End: 03-01-[address] FARIDEH NORTH DO [facility] Start: 06-29-2021 End: 06-29-[address] FARIDEH NORTH DO [facility] Start: 06-04-2021 End: 06-04-[address] FARIDEH NORTH DO [facility] Procedures Date Procedure Procedure Detail Performing Clinician Start: 01-13-2025 Beta-hemolytic Streptococcus culture Eliud Peñaloza CODING QUALITY ANALYST-C Work Phone: Start: 11-20-2024 Serologic test for syphilis Eliud julio CODING QUALITY ANALYST-C Work Phone: Start: 07-12-2024 Urine culture Eliud Peñaloza CODING QUALITY ANALYST-C Work Phone: Start: 07-12-2024 Hepatitis C antibody measurement Suresh Peñaloza CODING QUALITY ANALYST-C Work Phone: Comment on above: Reactive: Presumptive evidence of antibo dies to HCV. Follow CDC recommendations for supplemental testing.Non-Reactive: Antibodies to HCV were not detected; does not exclude the possibility of exposure to HCVReactive Results are presumptive evidence of antibodies to HCV. Follow CDC recommendations for supplemental testing.Order confirmation testing: HCV Quant by PCR testing - HCVPCR #[id number] Non Reactive: < 0.8 Equivocal: >/= 0.8 to < 1.0 Reactive: >/= 1.0The CDC requires that a reactive/equivocal HCV antibody result be sent out for confirmation. HCV Quant by PCR testing. Start: 07-12-2024 Procedure Eliud Ezequiel CODING QUALITY ANALYST-C Work Phone: Comment on above: TEST RESULTS LIMITSHCV GenoSure(R) NS3/4 A HCV GenoSure(R) NS3/4A PDF HCV GenoSure(R) NS3/4A See comments HCV GenoSure(TM) NS3/4A HCV GenoSure(TM) NS3/4A Result: Non-Reportable HCV Genotype: Not Available Mutational analysis of the specified region could not be obtained. The most common reasons for failure are insufficient viral load, primer incompatibility, incorrect genotype/subtype submission (must be 1a or 1b), and the presence of inhibitory substances in the sample. If you would like to add on HCV Genotype (subtype) or HCV RT-PCR Quant, or if you have any questions please contact our Client Services Department at .HCV GenoSure(R) NS3/4AInterpFor more information on interpreting this report, pleasecall [employer] Customer Service at [phone] between thehours of 6:30am to 5:00pm [place] Time Monday throughMonday.REMINDER: To Ensure High-Quality Results on All Samples- Verify Viral Load is Sufficient Before Ordering.- Draw 3.0 mL Plasma (PPT or EDTA Tube).- Spin Sample Immediately at [id number] x g.- Don't Leave Samples in Centrifuge After Spinning.- Aliquot Plasma from EDTA Tubes (if used).- Freeze Sample Immediately at -20 degrees C.- Give Intelligent Systems Engineer Only Fully Frozen Samples.This assay is performed using a next-generation sequencingplatform that analyzes the specified non-structural codingregions of HCV. Variants are reported at a sensitivity thathas been demonstrated to be equivalent to that ofSanger/population sequencing. Genotype assignment isdetermined from the sequence of the specified regions thatare derived using subtype specific methodology, and shouldnot be used to establish or confirm the HCV genotype. HCVgenotype determination should only be done with an assayintended for that purpose. This assay was validated bytesting samples with viral loads equal to or above 2000IU/mL and should be interpreted only on such specimens.This test was developed and its performance characteristicsdetermined by [employer]. It has not been cleared or approvedby the Food and Drug Administration. [employer] is a subsidiary of [facility], using the brand [employer]. The results should notbe used as the sole criteria for patient management. Thisdocument contains private and confidential healthinformation protected by state and federal law. If you havereceived this document in error, please call [phone]. TESTING PERFORMED AT [facility]. ORIGINAL REPORT ON FILE IN LAB CONTAINS ADDITIONAL TEST SITE INFORMATION. Start: 07-12-2024 Rubella IgG measurement Eliud Peñaloza NP-C Work Phone: Comment on above: Antibody Result: InterpretationNon-React jayce: Non-ImmuneReactive: ImmuneThe following results were obtained with the [employer] Rubella IgG assay. Results from assays of other manufacturers cannot be used interchangeably. Start: 07-12-2024 Serologic test for syphilis Eliud julio CODING QUALITY ANALYST-C Work Phone: Start: 05-30-2024 Adult depression screening assessment Eliud Peñaloza APRN.COLD ROLL CATCHER Work Phone: Start: 07-11-2023 Ct abdomen & pelvis w/contrast material Eliud Peñaloza APRN.COLD ROLL CATCHER Work Phone: Start: 07-11-2023 Radiologic exam abdomen 1 view Eliud Peñaloza APRN.COLD ROLL CATCHER Work Phone: Start: 04-24-2014 Structure of wisdom tooth (body structure) DR FARIDEH NORTH DO Start: 04-24-2011 Carpal tunnel syndrome (disorder) DR HECTOR NORTH DO Plan of Treatment Date Care Activity Detail Author Start: 01-19-2031 Urine microalbumin profile [facility] Start: 03-21-2026 Pap Testing Pap Testing [facility] Start: 03-21-2026 Screening for malign ant neoplasm of cervix [facility] Start: 05-30-2025 Anxiety Screening Anxiety Screening [facility] Start: 05-30-2025 Covid-19 Vaccine () Covid-19 Vaccine () [facility] Comment on above: Postponed from 12/23 (Declined at this time) Start: 05-30-2025 Depression Screening Depression Scre ening [facility] Start: 03-11-2025 End: 03-11-2025 Patient encounter procedure 03/11/2025 2:40 PM EST Office Visit Family [address] [address] Eliud Peñaloza APRN.COLD ROLL CATCHER [address] [place] [address] Med check [facility] Comment on above: Med check Start: 12-23-2024 Influenza vaccination Influenza Vacc ine (#1) [facility] Start: 12-04-2024 Thyroid stimulating hormone measurement [facility] Start: 11-20-2024 CBC W Auto Different ial panel - Blood [facility] Start: 11-20-2024 Measurement of gluco se 2 hours after glucose challenge for glucose tolerance test [facility] Start: 11-20-2024 Serologic test for syphilis [facility] Start: 11-20-2024 [facility] Start: 10-21-2024 Influenza vaccination Influenza Vacc ine (#1) [facility] Comment on above: Postponed from 12/23 (Declined at this time) Start: 07-04-2024 End: 07-04-2024 Follow-up encounter 07/04/2024 2:40 PM EDT [facility] [address] [address] Eliud Peñaloza APRN.COLD ROLL CATCHER [address] [place] [address] 1 month follow up [facility] [place] Comment on above: 1 month follow up Start: 05-31-2024 End: 05-31-2024 Patient encounter procedure OB/Gynecology Comment on above: annual Med check and physic al Start: 05-30-2024 End: 05-30-2024 Patient encounter procedure 05/30/2024 4:20 PM EST Office Visit [facility] [address] [place] [address] Eliud Peñaloza APRN.COLD ROLL CATCHER [address] [place] [address] Med check and physical [facility] Comment on above: Med check and physic al Start: 04-26-2024 End: 07-26-2024 CBC W Auto Differential panel - Blood COMPLETE BLOOD COUNT AND DIFFERENTIAL Lab Routine Iron deficiency anemia, unspecified iron deficiency anemia type Expected: 04/26/2024, Expires: 07/26/2024 [facility] Comment on above: Expected: 04/26/2024 , Expires: 07/26/2024 Start: 04-26-2024 End: 07-26-2024 Comprehensive metabolic 2000 panel - Serum or Plasma COMPREHENSIVE METABOLIC PANEL Lab Routine Screening for diabetes mellitus Expected: 04/26/2024, Expires: 07/26/2024 [facility] Comment on above: Expected: 04/26/2024 , Expires: 07/26/2024 Start: 04-26-2024 End: 07-26-2024 Ferritin [Mass/volume] in Serum or Plasma FERRITIN Lab Routine Iron deficiency anemia, unspecified iron deficiency anemia type Expected: 04/26/2024, Expires: 07/26/2024 [facility] Comment on above: Expected: 04/26/2024 , Expires: 07/26/2024 Start: 04-26-2024 End: 07-26-2024 Hemoglobin A1c in Blood HEMOGLOBIN A1C Lab Routine Screening for diabetes mellitus Expected: 04/26/2024, Expires: 07/26/2024 [facility] Comment on above: Expected: 04/26/2024 , Expires: 07/26/2024 Start: 04-26-2024 End: 07-26-2024 Iron and Iron binding capacity panel - Serum or Plasma IRON AND TIBC Lab Routine Iron deficiency anemia, unspecified iron deficiency anemia type Expected: 04/26/2024, Expires: 07/26/2024 [facility] Work Phone: Comment on above: Expected: 04/26/2024 , Expires: 07/26/2024 Start: 04-26-2024 End: 07-26-2024 LIPID PANEL, NONFASTING LIPID PANEL, NONFASTING Lab Routine Encounter for lipid screening for cardiovascular disease Expected: 04/26/2024, Expires: 07/26/2024 [facility] Comment on above: Expected: 04/26/2024 , Expires: 07/26/2024 Start: 04-26-2024 End: 07-26-2024 THYROID PEROXIDASE ANTIBODY THYROID PEROXIDASE 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/2024, Expires: 07/26/2024 [facility] Comment on above: Expected: 04/26/2024 , Expires: 07/26/2024 Start: 04-26-2024 End: 07-26-2024 Thyrotropin [Units/volume] in Serum or Plasma THYROID STIMULATING HORMONE 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/2024, Expires: 07/26/2024 [facility] Comment on above: Expected: 04/26/2024 , Expires: 07/26/2024 Start: 04-26-2024 End: 07-26-2024 Thyroxine (T4) free [Mass/volume] in Serum or Plasma T4 FREE/FREE THYROXINE 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/2024, Expires: 07/26/2024 [facility] Comment on above: Expected: 04/26/2024 , Expires: 07/26/2024 Start: 04-26-2024 End: 07-26-2024 Triiodothyronine (T3) [Mass/volume] in Serum or Plasma T3 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/2024, Expires: 07/26/2024 [facility] Comment on above: Expected: 04/26/2024 , Expires: 07/26/2024 Start: 04-26-2024 End: 04-26-2024 Patient encounter procedure OB/Gynecology Comment on above: annual Follow up on depress ion/anxiety meds Start: 03-29-2024 End: 03-29-2024 Patient encounter procedure 03/29/2024 3:30 PM EST Office Visit OB/Gynecology [address] [place] [address] Priscila Cobian APRN.COLD ROLL CATCHER [address] [place] [address] annual OB/Gynecology Comment on above: annual Start: 03-26-2024 End: 03-26-2024 ambulatory 03/26/2024 12:00 PM EST [facility] [address] [facility] [place] [address] Eliud Peñaloza APRN.COLD ROLL CATCHER [address] [place] [address] Anxiety/depression check in and meds [facility] Comment on above: Anxiety/depression c heck in and meds Start: 03-22-2024 End: 03-22-2024 Patient encounter procedure 03/22/2024 2:30 PM EST Office Visit OB/Gynecology [address] [place] [address] Priscila Cobian APRN.COLD ROLL CATCHER [address] [place] [address] annual OB/Gynecology Comment on above: annual Start: 01-11-2024 End: 01-11-2024 Follow-up encounter 01/11/2024 2:40 PM EDT [facility] [place] [address] [facility] [place] [address] Eliud Peñaloza APRN.COLD ROLL CATCHER [address] [facility], [place] [id number] Follow up on mental health/medications [facility] Comment on above: Follow up on mental health/medications Start: 12-24-2023 Covid-19 Vaccine ( season) Covid-19 Vaccine () [facility] Start: 12-24-2023 Covid-19 Vaccine () Covid-19 Vaccine () [facility] Start: 12-24-2023 Influenza vaccination Influenza Vacc ine (#1) [facility] Start: 10-30-2023 End: 10-30-2023 Follow-up encounter 10/30/2023 12:00 PM EDT [facility] [address] [place], [place] [address] Eliud Peñaloza APRN.COLD ROLL CATCHER [address] [place] [id number] 2 week follow up [facility] [place] Comment on above: 2 week follow up Start: 10-10-2023 End: 10-10-2023 Follow-up encounter 10/10/2023 1:20 PM EDT [facility] [address] [place], [place] [id number] Eliud Peñaloza, MARY.COLD ROLL CATCHER [address] [place], [place] [id number] 2 week follow up [facility] [place] Comment on above: 2 week follow up Start: 09-26-2023 End: 09-26-2023 Patient encounter procedure 09/26/2023 9:00 AM EDT Office Visit [facility] [address] [place], [place] [id number] Eliud Peñaloza, [employer].COLD ROLL CATCHER [address] [place], [place] [id number] 3 month follow up [facility] [place] Comment on above: 3 month follow up Start: 07-06-2023 [facility] Start: 06-29-2023 End: 09-28-2023 C reactive protein [Mass/volume] in Serum or Plasma [facility] Work Phone: Comment on above: Expected: 06/29/2023 , Expires: 09/28/2023 Start: 06-29-2023 End: 09-28-2023 Nuclear Ab [Presence] in Serum by Immunoassay [facility] Work Phone: Comment on above: Expected: 06/29/2023 , Expires: 09/28/2023 Start: 06-29-2023 End: 09-28-2023 Rheumatoid factor [Units/volume] in Serum or Plasma [facility] Work Phone: Comment on above: Expected: 06/29/2023 , Expires: 09/28/2023 Start: 06-15-2023 End: 09-14-2023 CBC W Auto Differential panel - Blood CBC + DIFF Lab Routine Menorrhagia with regular cycle Expected: 06/15/2023, Expires: 09/14/2023 [facility] Work Phone: Comment on above: Expected: 06/15/2023 , Expires: 09/14/2023 Start: 06-15-2023 End: 09-14-2023 Iron and Iron binding capacity panel - Serum or Plasma IRON + TIBC Lab Routine Menorrhagia with regular cycle Expected: 06/15/2023, Expires: 09/14/2023 [facility] Work Phone: Comment on above: Expected: 06/15/2023 , Expires: 09/14/2023 Start: 04-24-2023 [facility] Start: 12-23-2022 Covid-19 Vaccine (2022- season) Covid-19 Vaccine ( season) [facility] Start: 04-24-2022 Depression Assessment Depression Ass essment [facility] Start: 07-09-2014 Hepatitis B Vaccine (1 of 3 - 19+ 3-dose series) Hepatitis B Vaccine (1 of 3 - 19+ 3-dose series) [facility] Start: 07-09-2013 Anxiety Screening Anxiety Screening [facility] Start: 07-09-2013 Depression Screening Depression Scre ening [facility] Start: 07-09-2013 Hepatitis C Screening Hepatitis C Sc parveen [facility] Start: 07-09-2013 Hepatitis C screening Hepatitis C In parveen [facility] Start: 07-09-2013 HIV Screening HIV Screening [facility] Start: 07-09-2013 HIV screening HIV Screening [facility] Start: 1995 Hepatitis B Vaccine (1 of 3 - 3-dose series) Hepatitis B Vaccine (1 of 3 - 3-dose series) [facility] CBC W Auto Different ial panel - Blood [facility] End: 08-09-2024 CT Abdomen and Pelvis W contrast IV CT ABD/PEL W IVCON Radiology STAT Left lower quadrant abdominal pain 1 Occurrences starting 07/11/2023 until 08/09/2024 [facility] Work Phone: Comment on above: 1 Occurrences starti ng 07/11/2023 until 08/09/2024 CT Abdomen and Pelvi s W contrast IV CT ABD/PEL W IVCON Radiology STAT Left lower quadrant abdominal pain 07/11/2023 1:14 PM EDT [facility] Work Phone: ECG COMPLETE ECG COMPLETE ECG Routine Dizziness Ordered: 06/20/2023 [facility] Work Phone: Comment on above: Ordered: 06/20/2023 End: 06-20-2024 Echocardiography ECHO Cardiology Routine Abnormal cardiac valve 1 Occurrences starting 06/20/2023 until 06/20/2024 [facility] Work Phone: Comment on above: 1 Occurrences starti ng 06/20/2023 until 06/20/2024 Erythrocyte mean corpuscular volume determination [facility] Hematocrit [Volume Fraction] of Blood [facility] Hemoglobin [Mass/vol ume] in Blood [facility] Leukocytes [#/volume ] in Blood [facility] Liquid based cervica l cytology screening [facility] Mean corpuscular hemoglobin concentration determination [facility] Mean corpuscular hemoglobin determination [facility] Measurement of gluco se 2 hours after glucose challenge for glucose tolerance test [facility] Neutrophil count [facility] Neutrophil percent differential count [facility] Patient Education ED Abdominal P ain Unkn Cause Fem ED Irritable Bowel Syndrome [facility] Work Phone: Patient referral [facility] Work Phone: Platelets [#/volume] in Blood [facility] Procedure [facility] Red blood cell count [facility] Red cell distributio n width determination [facility] Serologic test for syphilis [facility] c [facility] c [facility] Immunizations Immunization Date Immunization Notes Care Provider [facility] 12-04-2024 tetanus toxoid, reduced diphtheria toxoid, and acellular pertussis vaccine, adsorbed Eliud [facility] Work Phone: [facility] 02-02-2023 influenza virus vaccine, unspecified formulation Neurology Provider [facility] 02-14-2022 influenza virus vaccine, unspecified formulation DR FARIDEH NORTH DO [facility] 02-14-2022 influenza, injectabl e, quadrivalent, preservative free [facility] 01-19-2021 influenza virus vaccine, unspecified formulation DR FARIDEH NORTH DO [facility] 01-19-2021 influenza, injectabl e, quadrivalent, preservative free [facility] 01-19-2021 tetanus toxoid, reduced diphtheria toxoid, and acellular pertussis vaccine, adsorbed; Translations: [Boostrix (Tdap)] DR FARIDEH NORTH DO [facility] 05-25-2020 SARS-CoV-2 (COVID-19 ) mRNA-[address] FARIDEH NORTH DO [facility] 04-27-2020 SARS-CoV-2 (COVID-19 ) mRNA-[address] FARIDEH NORTH DO [facility] Comment on above: Result Comment: 2020: [id number] 02-13-2020 influenza, injectabl e, quadrivalent, preservative free; Translations: [Fluarix PF Quadrivalent ] DR FARIDEH NORTH DO [facility] Payers Date Payer Category Payer Self-pay [id number] 2024 Unknown [id number] 2024 Private Health Insurance [id number] 2023 Unknown ANTHEM BLUE CARD PPO OOS [id number] 2023-Present [phone] [address] [place] [address] PPO [id number] 2023 Unknown [id number] 2023 Unknown [id number] 2023 Private Health Insurance [id number] 2022 Private Health Insurance [id number]. [id number] 2022 Private Health Insurance [id number] 1995 Unknown [id number] 2.16.840.1.926504.3.579.2. 627 1995 Unknown [id number] 2.16.840.1.230614.3.579.2. 479 1995 Unknown [id number] 2.16.840.1.371710.3.579.2. 479 1995 Unknown [id number] 2.16.840.1.731259.3.579.2. 479 1995 Unknown [id number] 2.16.840.1.667108.3.579.2. 479 1995 Unknown [id number] .840.1.712565.3.579.2. 479 1995 Unknown [id number] .840.1.138973.3.579.2. 479 Unknown [id number] Unknown [id number] .840.1.179437.3.579.2. 462 Unknown [id number] .840.1.733506.3.579.2. 462 Unknown [id number] .840.1.897770.3.579.2. 462 Unknown [id number] .840.1.012906.3.579.2. 462 Unknown [id number] .840.1.790700.3.579.2. 462 Unknown [id number] .840.1.649451.3.579.2. 462 Unknown [id number] .840.1.653974.3.579.2. 462 Unknown [id number] .840.1.501203.3.579.2. 462 Unknown [id number] .840.1.495907.3.579.2. 462 Unknown [id number] .840.1.781385.3.579.2. 462 Unknown [id number] .840.1.425799.3.579.2. 462 Unknown [id number] .840.1.281654.3.579.2. 462 Unknown [id number] .840.1.066859.3.579.2. 462 Unknown [id number] 2.840.1.148670.3.579.2. 462 Unknown [id number] .840.1.392872.3.579.2. 462 Unknown [id number] 2.16.840.1.183653.3.579.2. 462 Unknown [id number] 2.16.840.1.114328.3.579.2. 462 Unknown [id number] 2.16.840.1.862037.3.579.2. 462 Unknown [id number] 2.16.840.1.558305.3.579.2. 462 Unknown [id number] 2.16.840.1.185406.3.579.2. 462 Unknown [id number] 2.16.840.1.177771.3.579.2. 462 Unknown [id number] 2.16.840.1.582867.3.579.2. 462 Unknown [id number] 2.16.840.1.659286.3.579.2. 462 Social History Date Type Detail Facility Start: 12-11-2019 End: 06-21-2024 Never smoked tobacco (finding) [facility] Start: 1995 Sex Assigned At Female A [facility] Start: 03-21-2023 Tobacco use and exposure Smoke less tobacco non-user [facility] Start: 03-21-2023 End: 06-26-2023 Alcohol intake Current drinker of alcohol (finding) [facility] Start: 03-21-2023 End: 06-18-2023 History of Social function [facility] Start: 03-21-2023 End: 06-18-2023 Tobacco use panel [facility] Start: 07-29-2018 National Score (1-10 0), lower number is lower risk 58 [facility] Start: 02-06-2023 Alcohol Comment [facility] Start: 1995 Sex Assigned At Not on file [facility] Has the [employer], [employer], or [employer] threatened to shut off services in your home in past 12Mo No [facility] Do you belong to any clubs or organizations such as caodaism groups, unions, fraternal or athletic groups, or school groups? Yes [facility] Are you now , , , , never or living with a partner? [facility] How often to you hav e a drink containing alcohol? Never [facility] Do you feel stress - tense, restless, nervous, or anxious, or unable to sleep at night because your mind is troubled all the time - these days [OSQ] Rather much [facility] (I/We) worried wheth er (my/our) food would run out before (I/we) got money to buy more. Never true [facility] Start: 07-06-2023 [facility] ever smoked [facility] Do you feel stress - tense, restless, nervous, or anxious, or unable to sleep at night because your mind is troubled all the time - these days [OSQ] To some extent [facility] Start: 07-18-2024 End: 08-01-2024 Sex Female (finding) [facility] Medical Equipment Procedure Code Equipment Code Equipment Origin al Text Equipment Identifier Dates Laparoscopy, diagnostic DRESSING,INTERCEED 3X4 FDA Start: 05-13-2021 Laparoscopy, diagnostic DRESSING,INTERCEED 3X4 FDA Start: 05-13-2021 Laparoscopy, diagnostic DRESSING,INTERCEED 3X4 FDA Start: 05-13-2021 Laparoscopy, diagnostic DRESSING,INTERCEED 3X4 FDA Start: 05-13-2021 Laparoscopy, diagnostic DRESSING,INTERCEED 3X4 FDA Start: 05-13-2021 Laparoscopy, diagnostic DRESSING,INTERCEED 3X4 FDA Start: 05-13-2021 Laparoscopy, diagnostic DRESSING,INTERCEED 3X4 FDA Start: 05-13-2021 Laparoscopy, diagnostic DRESSING,INTERCEED 3X4 FDA Start: 05-13-2021 Laparoscopy, diagnostic DRESSING,INTERCEED 3X4 FDA Start: 05-13-2021 Laparoscopy, diagnostic DRESSING,INTERCEED 3X4 FDA Start: 05-13-2021 Laparoscopy, diagnostic DRESSING,INTERCEED 3X4 FDA Start: 05-13-2021 Laparoscopy, diagnostic DRESSING,INTERCEED 3X4 FDA Start: 05-13-2021 Laparoscopy, diagnostic DRESSING,INTERCEED 3X4 FDA Start: 05-13-2021 Laparoscopy, diagnostic DRESSING,INTERCEED 3X4 FDA Start: 05-13-2021 Laparoscopy, diagnostic DRESSING,INTERCEED 3X4 FDA Start: 05-13-2021 Laparoscopy, diagnostic DRESSING,INTERCEED 3X4 FDA Start: 05-13-2021 Laparoscopy, diagnostic DRESSING,INTERCEED 3X4 FDA Start: 05-13-2021 Laparoscopy, diagnostic DRESSING,INTERCEED 3X4 FDA Start: 05-13-2021 Laparoscopy, diagnostic DRESSING,INTERCEED 3X4 FDA Start: 05-13-2021 Laparoscopy, diagnostic DRESSING,INTERCEED 3X4 FDA Start: 05-13-2021 Laparoscopy, diagnostic DRESSING,INTERCEED 3X4 FDA Start: 05-13-2021 Laparoscopy, diagnostic DRESSING,INTERCEED 3X4 FDA Start: 05-13-2021 Laparoscopy, diagnostic DRESSING,INTERCEED 3X4 FDA Start: 05-13-2021 Laparoscopy, diagnostic DRESSING,INTERCEED 3X4 FDA Start: 05-13-2021 Laparoscopy, diagnostic DRESSING,INTERCEED 3X4 FDA Start: 05-13-2021 Laparoscopy, diagnostic DRESSING,INTERCEED 3X4 FDA Start: 05-13-2021 Laparoscopy, diagnostic DRESSING,INTERCEED 3X4 FDA Start: 05-13-2021 Laparoscopy, diagnostic DRESSING,INTERCEED 3X4 FDA Start: 05-13-2021 Laparoscopy, diagnostic DRESSING,INTERCEED 3X4 FDA Start: 05-13-2021 Laparoscopy, diagnostic DRESSING,INTERCEED 3X4 FDA Start: 05-13-2021 Laparoscopy, diagnostic DRESSING,INTERCEED 3X4 FDA Start: 05-13-2021 Laparoscopy, diagnostic DRESSING,INTERCEED 3X4 FDA Start: 05-13-2021 Functional Status Date Assessment Result Facility 07-04-2024 Total score [AUDIT-C] 0 07/05/19 9:50 AM EDT User, Joslyn [facility] 07-04-2024 Within the last year , have you been humiliated or emotionally abused in other ways by your partner or ex-partner? No 07/04/2024 9:50 AM EDT User, Mychart [facility] 07-04-2024 Within the last year , have you been afraid of your partner or ex-partner? No 07/04/2024 9:50 AM EDT User, Mychart [facility] 07-04-2024 Within the last year , have you been raped or forced to have any kind of sexual activity by your partner or ex-partner? No 07/04/2024 9:50 AM EDT User, Mychart No [facility] 07-04-2024 Within the last year , have you been kicked, hit, slapped, or otherwise physically hurt by your partner or ex-partner? No 07/04/2024 9:50 AM EDT User, Joslyn No [facility] 07-04-2024 How often to you hav e a drink containing alcohol? Never 07/04/2024 9:50 AM EDT User, Erniehart Never [facility] 07-04-2024 Functional status Patient does n ot drink 07/04/2024 9:50 AM EDT User, Joslyn Patient does not drink [facility] 07-04-2024 How often do you hav e 6 or more drinks on 1 occasion? Never 07/04/2024 9:50 AM EDT User, Jimmyt Never [facility] Clinical Notes 03-31-2023 to 01-13-2025 Note Date & Type Note Facility 01-13-2025 Progress note [facility] 01-13-2025 Progress note Note Date/Time January 13, 2025 3:28pm [facility] [address], [address] [place] [address] OFFICE VISIT Date of Service: 01/13/25 MR#: [id number] Acct: [id number] Name: PATTIE BALDERAS Rep #: [id number] : 1995 Provider: Dr. Cabrera Jernigan MD Age/Sex: 29/F Location: [facility] Status: Signed Intake Vital Signs 11/20/24 08:47 01/01/25 09:52 01/13/25 14:59 Height 5 ft 4 in 5 ft 4 in 5 ft 4 in Weight: 177 lb 6 oz 180 lb BMI 30.4 30.9 BP 126/80 H 126/80 H Intake Visit Reasons: 36 WK OB Exhibition Specialist Required: No Is patient in pain?: No Allergies gluten Allergy (Verified 01/13/25 14:57) GI upset milk Allergy (Verified 01/13/25 14:57) GI upset tea tree Allergy (Verified 01/13/25 14:57) Hives Medications ?Medication ?Instructions ?Recorded ?Confirmed ?Type cetirizine 10 mg capsule (Zyrtec) 10 mg PO DAILY aller gies 10/07/19 01/13/25 History cholecalciferol (vitamin D3) 25 50 mcg PO DAILY supple ment 05/06/21 01/13/25 History mcg (1,000 unit) capsule (Vitamin D3) magnesium 250 mg tablet 250 mg PO DAILY supplement 0 06/18/21 01/13/25 History citalopram 40 mg tablet 40 mg PO DAILY 10/14/2112/24 History buspirone 5 mg tablet 5 mg PO TID 06/21/24 5 History docosahexaenoic acid 200 mg mg PO 06/21/24 01/13/25 Hi story capsule ( DHA) ferrous sulfate 325 mg (65 mg 325 mg PO QDAY 12/04/24 01/13/25 History iron) tablet Last Menstrual Period: 05/02/24 Zika: Zika virus screening: Negative : No PFSH PFSH Medical History Ischemic hepatitis Allergic contact dermatitis Transaminitis Intestinal metaplasia of stomach without dysplasia Pyloric ulcer Irritable bowel syndrome with constipation Ovarian cyst Migraine headache Syncope Asthma Surgical History Hx of exploratory laparotomy Hx of colonoscopy with polypectomy 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: No pets and animals: Yes pets and animals: dog(s) history of recent [place]: [place] [place] out of state: Yes out of country: No sexually active: Yes Smoking Status: Never smoker alcohol intake: current alcohol intake frequency: holidays/special occasions only details: Not while substance use type: does not use diet: gluten free and lactose free well-balanced diet: daily or most days caffeine: No eating out: 1-3 times/week during the past year weight has: increased > 10 lbs what type of physical activity do you participate in: walking, yoga and weight training frequency: 1-2 times per week duration: 15-30 minutes/day fredy/faith: [employer] seatbelt use: always do you feel safe at home: Yes 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 OB Visit RADHA Calculator Estimated Delivery Date Method Current WG Current Estimate 02/06/25 LMP (Certain) 36w 4d Other Estimates 02/11/25 Ultrasound #1 35w 6d Expected Delivery Route/Plan Labor Preferences- CB/BF classes: yes labor support person: Mandeep labor intervention preferences: [] pain management options preferred: limited cut cord/dad catch: no : yes PP control planned: discussed discussed possible routes of delivery and associated risks: [] special requests: [] Specific Issue/Plans Covid status: [] Flu vaccine: [] Tdap vaccine: given Rhogam: given 11/20/24 LARC form signed: yes Problem list reviewed and updated with the most current plan of care details and appropriate orders placed. Relevant counseling for the gestational age provided. Continue routine care and follow up unless otherwise noted in visit notes/problem list details Initial Weight: 148 lb Date -?-?-?-?-?-?-?-?-?-?-?-?- EGA Weight BP Urine Prot -?-?-?-?-?-?-?-?-?-?-?-?- Glucose FHR FuHt Pres Dilation -?-?-?-?-?-?-?-?-?-?-?-?- Effaced St Visit Note 07/12/24 -?-?-?-?-?-?-?-?--?-?-?-?- 10w 1d 148 lb 8 oz (+8 oz) 112/72 -?-?-?-?-?-?-?-?-?-?-?-?- 178 -?-?-?-?-?-?-?-?-?-?-?-?- KW- CRL cons wit h date. declines NIPT. KW- CRL cons with date. decl crissy NIPT. Will need MFM anatomy US for FOB hx of heart issue. 07/24/24 -?-?-?-?-?-?-?-?-?-?-?-?- 11w 6d 148 lb 4 oz (+4 oz) 112/72 Trace -?-?-?-?-?-?-?-?-?-?-?-?- Negative 165 -?-?-?-?-?-?-?-?-?-?-?-?- Sm- no vb crampi ng some palpitations no cp sob 08/06/24 -?-?-?-?-?-?-?-?-?-?-?-?- 13w 5d 148 lb 2 oz (+2 oz) 118/74 Negative -?-?-?-?-?-?-?-?-?-?-?-?- Negative 158 -?-?-?-?-?-?-?-?-?-?-?-?- JV- no lof, vagi nal bleeding, or cramping. has antomy scan ordered. nausea is improved. 09/03/24 -?-?-?-?-?-?-?-?-?-?-?-?- 17w 5d 150 lb 2 oz (+2 lb 2 oz) 120/73 Negative -?-?-?-?-?-?-?-?-?-?-?-?- Negative 145 -?-?-?-?-?-?-?-?-?-?-?-?- SM- no vb crampi ng 09/30/24 -?-?-?-?-?-?-?-?-?-?-?-?- 21w 4d 158 lb 2 oz (+10 lb 2 oz) 114/77 Negative -?-?-?-?-?-?-?-?-?-?-?-?- Negative 150 20 -?-?-?-?-?-?-?-?-?-?-?-?- KW- no vb/crampi ng. some fm. reviewed scans. 11/06/24 -?-?-?-?-?-?-?-?-?-?-?-?- 26w 6d 161 lb 6 oz (+13 lb 6 oz) 114/74 Negative -?-?-?-?-?-?-?-?-?-?-?-?- Negative 145 26 -?-?-?-?-?-?-?-?-?-?-?-?- SM- no vb lof go od fm no reuglar ctx 11/20/24 -?-?-?-?-?-?-?-?-?-?-?-?- 28w 6d 165 lb 4 oz (+17 lb 4 oz) 110/70 Negative -?-?-?-?-?-?-?-?-?-?-?-?- Negative 155 29 -?-?-?-?-?-?-?-?-?-?-?-?- -No VB, LOF. G ood FM. Larc, rhogam, 28 wk labs pending 12/04/24 -?-?-?-?-?-?-?-?-?-?-?-?- 30w 6d 168 lb (+20 lb) 107/73 Negative -?-?-?-?-?-?-?-?-?-?-?-?- Negative 135 32 -?-?-?-?-?-?-?-?-?-?-?-?- JV- passed the 3 hr gtt. needs tsh today 12/18/24 -?-?-?-?-?-?-?-?-?-?-?-?- 32w 6d 173 lb 5 oz (+25 lb 5 oz) 119/80 Negative -?-?-?-?-?-?-?-?-?-?-?-?- Negative 142 33 -?-?-?-?-?-?-?-?-?-?-?-?- MH-No VB, LOF. G ood FM. Growth US today 01/01/25 -?-?-?-?-?-?-?-?-?-?-?-?- 34w 6d 177 lb 6 oz (+29 lb 6 oz) 126/80 Negative -?-?-?-?-?-?-?-?-?-?-?-?- Negative 135 36 -?-?-?-?-?-?-?-?-?-?-?-?- KW- no vb/lof/ct x. good fm. discussed GBS next visit. 01/13/25 -?-?-?-?-?-?-?-?-?-?-?-?- 36w 4d 180 lb (+32 lb) 126/80 Negative -?-?-?-?-?-?-?-?-?-?-?-?- Negative 150 37 Cephalic -?-?-?-?-?-?-?-?-?-?-?-?- SM- no vb lof go od fm n oreuglar ctx gbs collected ACOG First Trimester First Trimester: Discussed Second Trimester Second Trimester: Signs and Symptoms of Labor, Selecting a care provider, Reproductive Life Planning & Contreception, Care Planning, Depression/Anxiety and Intimate Partner Violence; Discussed Tobacco Cessation Third Trimester Third Trimester: Pain Management Plans, Labor support person(s), Immediate Larc, Circumcision preference, Signs and Symptoms of Preeclampsia, Feeding No , Bowie Education, Family Medical Leave or Disability Forms and Intimate Partner Violence Results POC Urinalysis 2 Dip (Clinic) Office Urine Glucose Negative Last Edit by Sherry Sheikh on 01/13/25 15:04 Office Urine Protein Negative Last Edit by Sherry Sheikh on 01/13/25 15:04 Coding Level of Care Code OB Routine Diagnoses Abnormal glucose affecting O99.810 Family history of congenital septal defect Z82.79 Circumvallate placenta in third trimester O43.113 Trimester: third trimester Rh negative status during in third trimester O26.893; Z67.91 Trimester: third trimester Supervision of high risk in third trimester O09.93 Trimester: third trimester 36 weeks gestation of Z3A.36 Weeks of gestation: 36 weeks 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 Ischemic hepatitis K72.00 Anxiety and depression F41.9; F32.A PCOS (polycystic ovarian syndrome) E28.2 Irritable bowel syndrome with constipation K58.1 Endometriosis determined by laparoscopy N80.9 Assessment and Plan Assessment and Plan (1) Abnormal glucose affecting : Status: Acute Comment: normal 3 hr GTT (2) Family history of congenital septal defect: Status: Acute Comment: Echo by Ped Card [id number] (3) Circumvallate placenta: Status: Acute Qualifiers: Trimester: third trimester Qualified Code(s): O43.113 - Circumvallate placenta, third trimester Comment: Growth US Q4 weeks @ 28 weeks. 11/20:28w-69% EFW. 63% AC (4) Rh negative status during : Status: Acute Qualifiers: Trimester: third trimester Qualified Code(s): O26.893 - Other specified related conditions, third trimester; Z67.91 - Unspecified blood type, Rh negative Comment: O-, Rhogam @ 28wks & as needed. given 11/20/24 (5) Supervision of high-risk : Status: Acute Qualifiers: Trimester: third trimester Qualified Code(s): O09.93 - Supervision of high risk , unspecified, third trimester Comment: PRR, RADHA 02/06/25, boy secret name : Mandeep (has septal defect (6) : Status: Acute Qualifiers: Weeks of gestation: 36 weeks Qualified Code(s): Z3A.36 - 36 weeks gestation of Comment: Discussed genetic/carrier testing - nl anatomy. (7) Adopted: Status: Acute Comment: Unknown family medical hx (8) Edgar's disease: Status: Acute Comment: tsh levels every trimester and 6 week post (9) Ischemic hepatitis: Status: Acute (10) Anxiety and depression: Status: Acute Comment: On Prozac & Just started counseling (11) PCOS (polycystic ovarian syndrome): Status: Acute (12) Irritable bowel syndrome with constipation: Status: Acute (13) Endometriosis determined by laparoscopy: Status: Acute Orders: Orders POC Urinalysis 2 Dip (Clinic) Today Culture, Group B Streptococcus Today O09.93 - Supervision of high risk , unspecified, third trimester 01/13/25 1528 <Electronically signed by Jacki fierro MD> Date _ Jacki Jernigan MD Cosign Signature: Date (if applicable) CC: ~ [facility] Work Phone: [phone] [phone] Telephone encounter Note* Telephone Encounter - Laura Shin LPN - 01/07/2025 3:42 PM EDT Pt is requesting rx to go to mail-in pharmacy. Prescription Refill Information The patient has been identified by name and date of : Yes Caregiver verified no other encounters exist for this prescription request: Yes Caregiver confirmed with patient/requestor that no other refills are due, in the near future, with this provider at this time: Yes The last office visit in the department: 07/04/24 Does the patient have a future office visit with this provider/department: Yes 03/11/25 Requested Prescriptions Pending Prescriptions Disp Refills FLUoxetine (PROZAC) 20 mg capsule 90 capsule 0 Sig: Take 1 capsule by mouth once daily. Laura Shin LPN January 07, 2025 3:42 PM [facility]09-16-2025 Miscellaneous Notes* Telephone Encounter - Laura Shin LPN - 01/07/2025 3:42 PM EDT Pt is requesting rx to go to mail-in pharmacy. Prescription Refill Information The patient has been identified by name and date of : Yes Caregiver verified no other encounters exist for this prescription request: Yes Caregiver confirmed with patient/requestor that no other refills are due, in the near future, with this provider at this time: Yes The last office visit in the department: 07/04/24 Does the patient have a future office visit with this provider/department: Yes 03/11/25 Requested Prescriptions Pending Prescriptions Disp Refills FLUoxetine (PROZAC) 20 mg capsule 90 capsule 0 Sig: Take 1 capsule by mouth once daily. Laura Shin LPN January 07, 2025 3:42 PM documented [facility] [address], [address] [place] [address] OFFICE VISIT Date of Service: 01/01/25 MR#: [id number] Acct: [id number] Name: PATTIE BALDERAS MATEO Rep #: [id number] : 1995 Provider: LITO Montalvo Age/Sex: 29/F Location: [facility] Status: Signed Intake Vital Signs 11/06/24 10:59 12/18/24 09:42 01/01/25 09:52 Height 5 ft 4 in 5 ft 4 in 5 ft 4 in Weight: 177 lb 6 oz BMI 30.4 BP 126/80 H Intake Visit Reasons: 35wk ob Chief Complaint: 35wk OB Exhibition Specialist Required: No Is patient in pain?: No Allergies gluten Allergy (Verified 01/01/25 09:50) GI upset milk Allergy (Verified 01/01/25 09:50) GI upset tea tree Allergy (Verified 01/01/25 09:50) Hives Medications ?Medication ?Instructions ?Recorded ?Confirmed ?Type cetirizine 10 mg capsule (Zyrtec) 10 mg PO DAILY aller gies 10/07/19 01/01/25 History cholecalciferol (vitamin D3) 25 50 mcg PO DAILY supple ment 05/06/21 01/01/25 History mcg (1,000 unit) capsule (Vitamin D3) magnesium 250 mg tablet 250 mg PO DAILY supplement 0 06/18/21 01/01/25 History citalopram 40 mg tablet 40 mg PO DAILY 10/14/2112/23 History buspirone 5 mg tablet 5 mg PO TID 06/21/24 5 History docosahexaenoic acid 200 mg mg PO 06/21/24 01/01/25 Hi story capsule ( DHA) ferrous sulfate 325 mg (65 mg 325 mg PO QDAY 12/04/24 01/01/25 History iron) tablet Last Menstrual Period: 05/02/24 : No PFSH PFSH Medical History Ischemic hepatitis Allergic contact dermatitis Transaminitis Intestinal metaplasia of stomach without dysplasia Pyloric ulcer Irritable bowel syndrome with constipation Ovarian cyst Migraine headache Syncope Asthma Surgical History Hx of exploratory laparotomy Hx of colonoscopy with polypectomy 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/hazards: No pets and animals: Yes pets and animals: dog(s) history of recent travel: Yes ([facility] 2023) out of state: Yes out of country: No sexually active: Yes Smoking Status: Never smoker alcohol intake: current alcohol intake frequency: holidays/special occasions only details: Not while substance use type: does not use diet: gluten free and lactose free well-balanced diet: daily or most days caffeine: No eating out: 1-3 times/week during the past year weight has: increased > 10 lbs what type of physical activity do you participate in: walking, yoga and weight training frequency: 1-2 times per week duration: 15-30 minutes/day fredy/faith: [employer] seatbelt use: always do you feel safe at home: Yes additional social history: : 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 OB Visit RADHA Calculator Estimated Delivery Date Method Current WG Current Estimate 02/06/25 LMP (Certain) 34w 6d Other Estimates 02/11/25 Ultrasound #1 34w 1d Expected Delivery Route/Plan Labor Preferences- CB/BF classes: yes labor support person: Mandeep labor intervention preferences: [] pain management options preferred: limited cut cord/dad catch: no : yes PP control planned: discussed discussed possible routes of delivery and associated risks: [] special requests: [] Specific Issue/Plans Covid status: [] Flu vaccine: [] Tdap vaccine: given Rhogam: given 11/20/24 LARC form signed: yes Problem list reviewed and updated with the most current plan of care details and appropriate ordersplaced. Relevant counseling for the gestational age provided. Continue routine care and follow up unless otherwise noted in visit notes/problem list details Initial Weight: 148 lb Date -?-?-?-?-?-?-?-?-?-?-?-?- EGA Weight BP Urine Prot -?-?-?-?-?-?-?-?-?-?--?-?- Glucose FHR FuHt Pres Dilation -?-?-?-?-?-?-?-?-?-?-?-?- Effaced St Visit Note 07/12/24 -?-?-?-?-?-?-?-?-?-?-?-?- 10w 1d 148 lb 8 oz (+8 oz) 112/72 -?-?-?-?-?-?-?-?-?-?-?-?- 178 -?-?-?-?-?-?-?-?-?-?-?-?- KW- CRL cons wit h date. declines NIPT. KW- CRL cons with date. decl crissy NIPT. Will need MFM anatomy US for FOB hx of heart issue. 07/24/24 -?-?-?-?-?-?-?-?-?-?-?-?- 11w 6d 148 lb 4 oz (+4 oz) 112/72 Trace -?-?-?-?-?-?-?-?-?-?-?-?- Negative 165 -?-?-?-?-?-?-?-?-?-?-?-?- Sm- no vb crampi ng some palpitations no cp sob 08/06/24 -?-?-?-?-?-?-?-?-?-?-?-?- 13w 5d 148 lb 2 oz (+2 oz) 118/74 Negative -?-?-?-?-?-?-?-?-?-?-?-?- Negative 158 -?-?-?-?-?-?-?-?-?-?-?-?- JV- no lof, vagi nal bleeding, or cramping. has antomy scan ordered. nausea is improved. 09/03/24 -?-?-?-?-?-?-?-?-?-?-?-?- 17w 5d 150 lb 2 oz (+2 lb 2 oz) 120/73 Negative -?-?-?-?-?-?-?-?-?-?-?-?- Negative 145 -?-?-?-?-?-?-?-?-?-?-?-?- SM- no vb crampi ng 09/30/24 -?-?-?-?-?-?-?-?-?-?-?-?- 21w 4d 158 lb 2 oz (+10 lb 2 oz) 114/77 Negative -?-?-?-?-?-?-?-?-?-?-?-?- Negative 150 20 -?-?-?-?-?-?-?-?-?-?-?-?- KW- no vb/crampi ng. some fm. reviewed scans. 11/06/24 -?-?-?-?-?-?-?-?-?-?-?-?- 26w 6d 161 lb 6 oz (+13 lb 6 oz) 114/74 Negative -?-?-?-?-?-?-?-?-?-?-?-?- Negative 145 26 -?-?-?-?-?-?-?-?-?-?-?-?- SM- no vb lof go od fm no reuglar ctx 11/20/24 -?-?-?-?-?-?-?-?-?-?-?-?- 28w 6d 165 lb 4 oz (+17 lb 4 oz) 110/70 Negative -?-?-?-?-?-?-?-?-?-?-?-?- Negative 155 29 -?-?-?-?-?-?-?-?-?-?-?-?- MH-No VB LOF. G mariela FM. Larc, rhogam, 28 wk labs pending 12/04/24 -?-?-?-?-?-?-?-?-?-?-?-?- 30w 6d 168 lb (+20 lb) 107/73 Negative -?-?-?-?-?-?-?-?-?--?-?-?- Negative 135 32 -?-?-?-?-?-?-?-?-?-?-?-?- JV- passed the 3 hr gtt. needs tsh today 12/18/24 -?-?-?-?-?-?-?-?-?-?-?-?- 32w 6d 173 lb 5 oz (+25 lb 5 oz) 119/80 Negative -?-?-?-?-?-?-?-?-?-?-?-?- Negative 142 33 -?-?-?-?-?-?-?-?-?-?-?-?- MH-No VB, LOF. G florenciood FM. Growth US today 01/01/25 -?-?-?-?-?-?-?-?-?-?-?-?- 34w 6d 177 lb 6 oz (+29 lb 6 oz) 126/80 Negative -?-?-?-?-?-?-?-?-?-?-?-?- Negative 135 36 -?-?-?-?-?-?-?-?-?-?-?-?- KW- no vb/lof/ct x. good fm. discussed GBS next visit. ACOG First Trimester First Trimester: Discussed Second Trimester Second Trimester: Signs and Symptoms of Labor, Selecting a care provider, Reproductive Life Planning & Contreception, Care Planning, Depression/Anxiety and Intimate Partner Violence; Discussed Tobacco Cessation Third Trimester Third Trimester: Pain Management Plans, Labor support person(s), Immediate Larc, Circumcision preference, Signs and Symptoms of Preeclampsia, Infant Feeding No , Bowie Education, Family Medical Leave or Disability Forms and Intimate Partner Violence ROS Const Reports system reviewed and no additional complaints, except as documented Eyes Reports system reviewed and no additional complaints, except as documented ENT Reports system reviewed and no additional complaints, except as documented Card Reports system reviewed and no additional complaints, except as documented Resp Reports system reviewed and no additional complaints, except as documented GI Reports system reviewed and no additional complaints, except as documented, Denies nausea and Denies vomiting Reports system reviewed and no additional complaints, except as documented Musc Reports system reviewed and no additional complaints, except as documented Skin/Breast Reports system reviewed and no additional complaints, except as documented Neuro Yes system reviewed and no additional complaints, except as documented Psych Reports system reviewed and no additional complaints, except as documented Endo Reports system reviewed and no additional complaints, except as documented Nik/Lymph Reports system reviewed and no additional complaints, except as documented Aller/Immun Reports system reviewed and no additional complaints, except as documented Exam Const General: cooperative, healthy appearing and no acute distress Orientation: alert, awake and oriented x3 Neck Neck: normal visual inspection and full ROM Resp Effort & Inspection: normal respiratory effort, able to speak in complete sentences and symmetric chest movement GI Inspection: normal to inspection Palpation: soft and other Other: gravid Skin General: no rashes or lesions noted Neuro General: patient alert, patient awake and patient oriented x3 Cognition: normal cognition Speech: speech normal Gait: normal gait Motor: muscle tone normal throughout Extrem General: normal to inspection and full ROM Psych Appearance: grossly normal Mental Status: mental status grossly normal Mood: congruent mood Affect: normal affect Speech and Movement: speech and movement normal Attitude: cooperative Thought Process: normal Thought Content: normal Judgment: judgment good Results POC Urinalysis 2 Dip (Clinic) Office Urine Glucose Negative Last Edit by Camille Broussard on 01/01/25 09:58 Office Urine Protein Negative Last Edit by Camille Broussard on 01/01/25 09:58 Coding Level of Care Code OB Routine Diagnoses Abnormal glucose affecting O99.810 Family history of congenital septal defect Z82.79 Circumvallate placenta in third trimester O43.113 Trimester: third trimester Rh negative status during in third trimester O26.893; Z67.91 Trimester: third trimester 34 weeks gestation of Z3A.34 Weeks of gestation: 34 weeks Supervision of high risk in third trimester O09.93 Trimester: third trimester 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 Ischemic hepatitis K72.00 Anxiety and depression F41.9; F32.A PCOS (polycystic ovarian syndrome) E28.2 Irritable bowel syndrome with constipation K58.1 Endometriosis determined by laparoscopy N80.9 Assessment and Plan Assessment and Plan (1) Abnormal glucose affecting : Status: Acute Comment: normal 3 hr GTT (2) Family history of congenital septal defect: Status: Acute Comment: Echo by Ped Card [id number] (3) Circumvallate placenta: Status: Acute Qualifiers: Trimester: third trimester Qualified Code(s): O43.113 - Circumvallate placenta, third trimester Comment: Growth US Q4 weeks @ 28 weeks. 11/20:28w-69% EFW. 63% AC (4) Rh negative status during : Status: Acute Qualifiers: Trimester: third trimester Qualified Code(s): O26.893 - Other specified related conditions, third trimester; Z67.91 - Unspecified blood type, Rh negative Comment: O-, Rhogam @ 28wks & as needed. given 11/20/24 (5) : Status: Acute Qualifiers: Weeks of gestation: 34 weeks Qualified Code(s): Z3A.34 - 34 weeks gestation of Comment: Discussed genetic/carrier testing - nl anatomy. (6) Supervision of high-risk : Status: Acute Qualifiers: Trimester: third trimester Qualified Code(s): O09.93 - Supervision of high risk , unspecified, third trimester Comment: PRR, RADHA 02/06/25, boy secret name : Mandeep (has septal defect (7) Edgar's disease: Status: Acute Comment: tsh levels every trimester and 6 week post (8) Adopted: Status: Acute Comment: Unknown family medical hx (9) Ischemic hepatitis: Status: Acute (10) Anxiety and depression: Status: Acute Comment: On Prozac & Just started counseling (11) PCOS (polycystic ovarian syndrome): Status: Acute (12) Irritable bowel syndrome with constipation: Status: Acute (13) Endometriosis determined by laparoscopy: Status: Acute Orders: Orders POC Urinalysis 2 Dip (Clinic) Today Plan Details Additional Comments: ACOG trimester education reviewed and updated. see problem list details for updated plan management information and see below for orders placed atthis visit. GA appropriate handout given. 01/01/25 1019 s CNM> Date _ Debra Elan MORSE Cosigner Signature: Date (if applicable) CC: ~ [facility]08-29-2025 Telephone encounter Note* Telephone Encounter - Daja Matos MA - 12/20/2024 3:57 PM EDT Pt scheduled for a med check on 03/11/25. Daja Matos MA [facility]08-29-2025 Miscellaneous Notes* Telephone Encounter - Daja Matos MA - 12/20/2024 3:57 PM EDT Pt scheduled for a med check on 03/11/25. Daja Matos MA * Telephone Encounter - Daja Matos MA - 12/18/2024 12:55 PM EDT Edamam message sent to pt notifying her to schedule an appt via [employer] or by contacting office and speaking with Hvac/R Service Technician. Daja Matos MA * Telephone Encounter - Eluid Peñaloza APRN.CNP - 12/17/2024 2:06 PM EDT Please let patient know she is overdue for an OV. * Telephone Encounter - Jose Carlos De Paz LPN - 12/17/2024 1:51 PM EDT Prescription Refill Information The patient has been identified by name and date of : Yes Caregiver verified no other encounters exist for this prescription request: Yes Caregiver confirmed with patient/requestor that no other refills are due, in the near future, with this provider at this time: Yes The last office visit in the department: 07/04/24 Does the patient have a future office visit with this provider/department: No Requested Prescriptions Pending Prescriptions Disp Refills FLUoxetine (PROZAC) 20 mg capsule 90 capsule 1 Sig: Take 1 capsule by mouth once daily. Jose Carlos De Paz LPN December 17, 2024 1:51 PM [facility] Telephone encounter Note * Telephone Encounter - Daja Matos MA - 12/18/2024 12:55 PM EDT Edamam message sent to pt notifying her to schedule an appt via [employer] or by contacting office and speaking with Hvac/R Service Technician. Daja Matos MA [facility]08-26-2025 Telephone encounter Note* Telephone Encounter - Eliud Peñaloza APRN.CNP - 12/17/2024 2:06 PM EDT Please let patient know she is overdue for an OV. [facility]08-26-2025 Telephone encounter Note* Telephone Encounter - Jose Carlos De Paz LPN - 12/17/2024 1:51 PM EDT Prescription Refill Information The patient has been identified by name and date of : Yes Caregiver verified no other encounters exist for this prescription request: Yes Caregiver confirmed with patient/requestor that no other refills are due, in the near future, with this provider at this time: Yes The last office visit in the department: 07/04/24 Does the patient have a future office visit with this provider/department: No Requested Prescriptions Pending Prescriptions Disp Refills FLUoxetine (PROZAC) 20 mg capsule 90 capsule 1 Sig: Take 1 capsule by mouth once daily. Jose Carlos De Paz LPN December 17, 2024 1:51 PM [facility]08-13-2025 [facility] [address], [address] [place] [address] OFFICE VISIT Date of Service: 12/04/24 MR#: [id number] Acct: [id number] Name: PATTIE BALDERAS MATEO Rep #: [id number] : 1995 Provider: Dr. Jami Voss DO Age/Sex: 29/F Location: [facility] Status: Signed Intake Vital Signs 11/06/24 10:59 11/20/24 08:47 12/04/24 10:06 12/04/24 10:07 Height 5 ft 4 in 5 ft 4 in 5 ft 4 in 5 ft 4 in Weight: 168 lb BMI 28.8 BP 107/73 Intake Visit Reasons: 30 wk ob Exhibition Specialist Required: No Is patient in pain?: No Allergies gluten Allergy (Verified 12/04/24 10:06) GI upset milk Allergy (Verified 12/04/24 10:06) GI upset tea tree Allergy (Verified 12/04/24 10:06) Hives Medications ?Medication ?Instructions ?Recorded ?Confirmed ?Type cetirizine 10 mg capsule (Zyrtec) 10 mg PO DAILY aller gies 10/07/19 12/04/24 History cholecalciferol (vitamin D3) 25 50 mcg PO DAILY supple ment 05/06/21 12/04/24 History mcg (1,000 unit) capsule (Vitamin D3) magnesium 250 mg tablet 250 mg PO DAILY supplement 0 06/18/21 12/04/24 History citalopram 40 mg tablet 40 mg PO DAILY 10/14/2111/22 History buspirone 5 mg tablet 5 mg PO TID 06/21/24 5 History docosahexaenoic acid 200 mg mg PO 06/21/24 12/04/24 Hi story capsule ( DHA) Last Menstrual Period: 05/02/24 Zika: Zika virus screening: Negative : No PFSH PFSH Medical History Ischemic hepatitis Allergic contact dermatitis Transaminitis Intestinal metaplasia of stomach without dysplasia Pyloric ulcer Irritable bowel syndrome with constipation Ovarian cyst Migraine headache Syncope Asthma Surgical History Hx of exploratory laparotomy Hx of colonoscopy with polypectomy 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: No pets and animals: Yes pets and animals: dog(s) history of recent travel: Yes ([facility] 2023) out of state: Yes out of country: No sexually active: Yes Smoking Status: Never smoker alcohol intake: current alcohol intake frequency: holidays/special occasions only details: Not while substance use type: does not use diet: gluten free and lactose free well-balanced diet: daily or most days caffeine: No eating out: 1-3 times/week during the past year weight has: increased > 10 lbs what type of physical activity do you participate in: walking, yoga and weight training frequency: 1-2 times per week duration: 15-30 minutes/day fredy/faith: Presybeterian seatbelt use: always do you feel safe at home: Yes 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 OB Visit RADHA Calculator Estimated Delivery Date Method Current WG Current Estimate 02/06/25 LMP (Certain) 30w 6d Other Estimates 02/11/25 Ultrasound #1 30w 1d Expected Delivery Route/Plan Labor Preferences- CB/BF classes: yes labor support person: Mandeep labor intervention preferences: [] pain management options preferred: limited cut cord/dad catch: no : yes PP control planned: discussed discussed possible routes of delivery and associated risks: [] special requests: [] Specific Issue/Plans Covid status: [] Flu vaccine: [] Tdap vaccine: [] Rhogam: given 11/20/24 LARC form signed: yes Problem list reviewed and updated with the most current plan of care details and appropriate ordersplaced. Relevant counseling for the gestational age provided. Continue routine care and follow up unless otherwise noted in visit notes/problem list details Initial Weight: 148 lb Date -?-?-?-?-?-?-?-?-?-?-?-?- EGA Weight BP Urine Prot -?-?-?-?-?-?-?-?-?-?-?-?- Glucose FHR FuHt Pres Dilation -?-?-?-?-?-?-?-?-?-?-?-?- Effaced St Visit Note 07/12/24 -?-?-?-?-?-?-?-?-?-?-?-?- 10w 1d 148 lb 8 oz (+8 oz) 112/72 -?-?-?-?-?-?-?-?-?-?-?-?- 178 -?-?-?-?-?-?-?-?-?-?-?-?- KW- CRL cons wit h date. declines NIPT. KW- CRL cons with date. decl crissy NIPT. Will need MFM anatomy US for FOB hx of heart issue. 07/24/24 -?-?-?-?-?-?-?-?-?-?-?-?- 11w 6d 148 lb 4 oz (+4 oz) 112/72 Trace -?-?-?-?-?-?-?--?-?-?-?-?- Negative 165 -?-?-?-?-?-?-?-?-?-?-?-?- Sm- no vb crampi ng some palpitations no cp sob 08/06/24 -?-?-?-?-?-?-?-?-?-?-?-?- 13w 5d 148 lb 2 oz (+2 oz) 118/74 Negative -?-?-?-?-?-?-?-?-?-?-?-?- Negative 158 -?-?-?-?-?-?-?-?-?-?-?-?- JV- no lof, vagi nal bleeding, or cramping. has antomy scan ordered. nausea is improved. 09/03/24 -?-?-?-?-?-?-?-?-?-?-?-?- 17w 5d 150 lb 2 oz (+2 lb 2 oz) 120/73 Negative -?-?-?-?-?-?-?-?-?-?-?-?- Negative 145 -?-?-?-?-?-?-?-?-?-?-?-?- SM- no vb crampi ng 09/30/24 -?-?-?-?-?-?-?-?-?-?-?-?- 21w 4d 158 lb 2 oz (+10 lb 2 oz) 114/77 Negative -?-?-?-?-?-?-?-?-?-?-?-?- Negative 150 20 -?-?-?-?-?-?-?-?-?-?-?-?- KW- no vb/crampi ng. some fm. reviewed scans. 11/06/24 -?-?-?-?-?-?-?-?-?-?-?-?- 26w 6d 161 lb 6 oz (+13 lb 6 oz) 114/74 Negative -?-?-?-?-?-?-?-?-?-?-?-?- Negative 145 26 -?-?-?-?-?-?-?-?-?-?-?-?- SM- no vb lof go od fm no reuglar ctx 11/20/24 -?-?-?-?-?-?-?-?-?-?-?-?- 28w 6d 165 lb 4 oz (+17 lb 4 oz) 110/70 Negative -?-?-?-?-?-?-?-?-?-?-?-?- Negative 155 29 -?-?-?-?-?-?-?-?-?-?-?-?- MH-No VB, LOF. G ood FM. Larc, rhogam, 28 wk labs pending 12/04/24 -?-?-?-?-?-?-?-?-?-?-?-?- 30w 6d 168 lb (+20 lb) 107/73 Negative -?-?-?-?-?-?-?-?-?-?-?-?- Negative 135 32 -?-?-?-?-?-?-?-?-?-?-?-?- JV- passed the 3 hr gtt. needs tsh today ACOG First Trimester First Trimester: Discussed Second Trimester Second Trimester: Signs and Symptoms of Labor, Selecting a care provider, Reproductive Life Planning & Contreception, Care Planning, Depression/Anxiety and Intimate Partner Violence; Discussed Tobacco Cessation Third Trimester Third Trimester: Pain Management Plans, Labor support person(s), Immediate Larc, Circumcision preference, Signs and Symptoms of Preeclampsia, Feeding No , [place] Education, Family Medical Leave or Disability Forms and Intimate Partner Violence Results POC Urinalysis 2 Dip (Clinic) Office Urine Glucose Negative Last Edit by Rocio Dominguez on 12/04/24 10: 32 Office Urine Protein Negative Last Edit by Rocio Dominguez on 12/04/24 10: 32 Immunizations Adacel(Tdap Adolesn/Adult)(PF) 2 Lf-(2.5-5-3-5)-5 Lf/0.5 mL IM syringe Performing Provider: Elke Voss DO Performing Location: [facility] Administered by: Rocio Dominguez on 12/04/24 10:21 Dose Route Admin Location Dispensed Lot Number Expiration Date NDC [employer] Scar[employer] Tender 0.5 mL IM Left Deltoid 0.5 mL [id number] 12/22/26 44412-832-03 [employer]PASTEUR VIS Given Date VIS Provided VIS Publication Date 12/04/24 Single Vaccine 24 Eligibility Eligibility Date Funding Source Not Applicable Coding Level of Care Code OB Routine Diagnoses Abnormal glucose affecting O99.810 Family history of congenital septal defect Z82.79 Circumvallate placenta in third trimester O43.113 Trimester: third trimester Rh negative status during in third trimester O26.893; Z67.91 Trimester: third trimester Supervision of high risk in third trimester O09.93 Trimester: third trimester 30 weeks gestation of Z3A.30 Weeks of gestation: 30 weeks 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 Ischemic hepatitis K72.00 Anxiety and depression F41.9; F32.A PCOS (polycystic ovarian syndrome) E28.2 Irritable bowel syndrome with constipation K58.1 Endometriosis determined by laparoscopy N80.9 Assessment and Plan Assessment and Plan (1) Abnormal glucose affecting : Status: Acute (2) Family history of congenital septal defect: Status: Acute Comment: Echo by Ped Card [id number] (3) Circumvallate placenta: Status: Acute Qualifiers: Trimester: third trimester Qualified Code(s): O43.113 - Circumvallate placenta, third trimester Comment: Growth US Q4 weeks @ 28 weeks. 11/20:28w-69% EFW. 63% AC (4) Rh negative status during : Status: Acute Qualifiers: Trimester: third trimester Qualified Code(s): O26.893 - Other specified related conditions, third trimester; Z67.91 - Unspecified blood type, Rh negative Comment: O-, Rhogam @ 28wks & as needed. given 11/20/24 (5) Supervision of high-risk : Status: Acute Qualifiers: Trimester: third trimester Qualified Code(s): O09.93 - Supervision of high risk , unspecified, third trimester Comment: PRR, RADHA 02/06/25, boy secret name : Mandeep (has septal defect (6) : Status: Acute Qualifiers: Weeks of gestation: 30 weeks Qualified Code(s): Z3A.30 - 30 weeks gestation of Comment: Discussed genetic/carrier testing - nl anatomy. (7) Adopted: Status: Acute Comment: Unknown family medical hx (8) Edgar's disease: Status: Acute Comment: tsh levels every trimester and 6 week post (9) Ischemic hepatitis: Status: Acute (10) Anxiety and depression: Status: Acute Comment: On Prozac & Just started counseling (11) PCOS (polycystic ovarian syndrome): Status: Acute (12) Irritable bowel syndrome with constipation: Status: Acute (13) Endometriosis determined by laparoscopy: Status: Acute Orders: Orders POC Urinalysis 2 Dip (Clinic) Today Tdap Immunization Today Z23 - Encounter for immunization Thyroid Stim Hormone (TSH) Today E06.3 - Autoimmune thyroiditis 12/04/24 1041 e Velde DO> Date _ Elke Voss DO Cosigner Signature: Date (if applicable) CC: ~ [facility]07-16-2025 [facility] [address] [place] [address], [facility] [address] [place] [address] OFFICE VISIT Date of Service: 11/06/24 MR#: [id number] Acct: [id number] Name: PATTIE BALDERAS MATEO Rep #: [id number] : 1995 Provider: Dr. Cabrera Jernigan MD Age/Sex: 29/F Location: [facility] Status: Signed Intake Vital Signs 08/06/24 08:50 09/03/24 09:28 09/30/24 15:34 11/06/24 10:59 Height 5 ft 4 in 5 ft 4 in 5 ft 4 in 5 ft 4 in Weight: 161 lb 6 oz BMI 27.6 BP 114/74 Intake Visit Reasons: 26wk ob Exhibition Specialist Required: No Is patient in pain?: No Allergies gluten Allergy (Verified 11/06/24 10:59) GI upset milk Allergy (Verified 11/06/24 10:59) GI upset tea tree Allergy (Verified 11/06/24 10:59) Hives Medications ?Medication ?Instructions ?Recorded ?Confirmed ?Type cetirizine 10 mg capsule (Zyrtec) 10 mg PO DAILY aller gies 10/07/19 11/06/24 History cholecalciferol (vitamin D3) 25 50 mcg PO DAILY supple ment 05/06/21 11/06/24 History mcg (1,000 unit) capsule (Vitamin D3) magnesium 250 mg tablet 250 mg PO DAILY supplement 0 06/18/21 11/06/24 History citalopram 40 mg tablet 40 mg PO DAILY 10/14/2110/22 History buspirone 5 mg tablet 5 mg PO TID 06/21/24 5 History docosahexaenoic acid 200 mg mg PO 06/21/24 11/06/24 Hi story capsule ( DHA) Last Menstrual Period: 05/02/24 Zika: Zika virus screening: Negative : No PFSH PFSH Medical History Ischemic hepatitis Allergic contact dermatitis Transaminitis Intestinal metaplasia of stomach without dysplasia Pyloric ulcer Irritable bowel syndrome with constipation Ovarian cyst Migraine headache Syncope Asthma Surgical History Hx of exploratory laparotomy Hx of colonoscopy with polypectomy 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: No pets and animals: Yes pets and animals: dog(s) history of recent travel: Yes ([facility] 2023) out of state: Yes out of country: No sexually active: Yes Smoking Status: Never smoker alcohol intake: current alcohol intake frequency: holidays/special occasions only details: Not while substance use type: does not use diet: gluten free and lactose free well-balanced diet: daily or most days caffeine: No eating out: 1-3 times/week during the past year weight has: increased > 10 lbs what type of physical activity do you participate in: walking, yoga and weight training frequency: 1-2 times per week duration: 15-30 minutes/day fredy/faith: Presybeterian seatbelt use: always do you feel safe at home: Yes additional social history: : 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 OB Visit RADHA Calculator Estimated Delivery Date Method Current WG Current Estimate 02/06/25 LMP (Certain) 26w 6d Other Estimates 02/11/25 Ultrasound #1 26w 1d Expected Delivery Route/Plan Labor Preferences- CB/BF classes: [] labor support person: [] labor intervention preferences: [] pain management options preferred: [] cut cord/dad catch: [] : [] PP control planned: [] discussed possible routes of delivery and associated risks: [] special requests: [] Specific Issue/Plans Covid status: [] Flu vaccine: [] Tdap vaccine: [] Rhogam: [] LARC form signed: [] Problem list reviewed and updated with the most current plan of care details and appropriate ordersplaced. Relevant counseling for the gestational age provided. Continue routine care and follow up unless otherwise noted in visit notes/problem list details Initial Weight: 148 lb Date -?-?-?-?-?-?-?-?-?-?-?-?- EGA Weight BP Urine Prot -?-?-?-?-?-?-?-?-?-?-?-?- Glucose FHR FuHt Pres Dilation -?-?-?-?-?-?-?-?-?-?-?-?- Effaced St Visit Note 07/12/24 -?-?-?-?-?-?-?-?-?-?-?-?- 10w 1d 148 lb 8 oz (+8 oz) 112/72 -?-?-?-?-?-?--?-?-?-?-?-?- 178 -?-?-?-?-?-?-?-?-?-?-?-?- KW- CRL cons wit h date. declines NIPT. KW- CRL cons with date. decl crissy NIPT. Will need MFM anatomy US for FOB hx of heart issue. 07/24/24 -?-?-?-?-?-?-?-?-?-?-?-?- 11w 6d 148 lb 4 oz (+4 oz) 112/72 Trace -?-?-?-?-?-?-?-?-?-?-?-?- Negative 165 -?-?-?-?-?-?-?-?-?-?-?-?- Sm- no vb crampi ng some palpitations no cp sob 08/06/24 -?-?-?-?-?-?-?-?-?-?-?-?- 13w 5d 148 lb 2 oz (+2 oz) 118/74 Negative -?-?-?-?-?-?-?-?-?-?-?-?- Negative 158 -?-?-?-?-?-?-?-?-?-?-?-?- JV- no lof, vagi nal bleeding, or cramping. has antomy scan ordered. nausea is improved. 09/03/24 -?-?-?-?-?-?-?-?-?-?-?-?- 17w 5d 150 lb 2 oz (+2 lb 2 oz) 120/73 Negative -?-?-?-?-?-?-?-?-?-?-?-?- Negative 145 -?-?-?-?-?-?-?-?-?-?-?-?- SM- no vb crampi ng 09/30/24 -?-?-?-?-?-?-?-?-?-?-?-?- 21w 4d 158 lb 2 oz (+10 lb 2 oz) 114/77 Negative -?-?-?-?-?-?-?-?-?-?-?-?- Negative 150 20 -?-?-?-?-?-?-?-?-?-?-?-?- KW- no vb/crampi ng. some fm. reviewed scans. 11/06/24 -?-?-?-?-?-?-?-?-?-?-?-?- 26w 6d 161 lb 6 oz (+13 lb 6 oz) 114/74 Negative -?-?-?-?-?-?-?-?-?-?-?-?- Negative 145 26 -?-?-?-?-?-?-?-?-?-?-?-?- SM- no vb lof go od fm no reuglar ctx ACOG First Trimester First Trimester: Discussed Second Trimester Second Trimester: Signs and Symptoms of Labor, Selecting a care provider, Reproductive Life Planning & Contreception, Care Planning, Depression/Anxiety and Intimate Partner Violence; Discussed Tobacco Cessation Third Trimester Third Trimester: Pain Management Plans, Labor support person(s), Immediate Larc, Signs and Symptoms of Preeclampsia, Feeding No , Education and Family Medical Leave or Disability Forms Results POC Urinalysis 2 Dip (Clinic) Office Urine Glucose Negative Last Edit by Sherry Sheikh on 11/06/24 11:08 Office Urine Protein Negative Last Edit by Sherry Sheikh on 11/06/24 11:08 Coding Level of Care Code OB Routine Diagnoses Family history of congenital septal defect Z82.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 Rh negative status during O26.899; Z67.91 Supervision of high-risk O09.90 26 weeks gestation of Z3A.26 Weeks of gestation: 26 weeks 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 Ischemic hepatitis K72.00 Anxiety and depression F41.9; F32.A PCOS (polycystic ovarian syndrome) E28.2 Irritable bowel syndrome with constipation K58.1 Endometriosis determined by laparoscopy N80.9 Assessment and Plan Assessment and Plan (1) Family history of congenital septal defect: Status: Acute Comment: Echo by Ped Card [id number] (2) Circumvallate placenta: Status: Acute Comment: Growth US Q4 weeks @ 28 weeks (3) Rh negative status during : Status: Acute Comment: O-, Rhogam @ 28wks & as needed (4) Supervision of high-risk : Status: Acute Comment: PRR, RADHA 02/06/25, boy secret name : Mandeep (has septal defect (5) : Status: Acute Qualifiers: Weeks of gestation: 26 weeks Qualified Code(s): Z3A.26 - 26 weeks gestation of Comment: Discussed genetic/carrier testing - nl anatomy. (6) Adopted: Status: Acute Comment: Unknown family medical hx (7) Edgar's disease: Status: Acute (8) Ischemic hepatitis: Status: Acute (9) Anxiety and depression: Status: Acute Comment: On Prozac & Just started counseling (10) PCOS (polycystic ovarian syndrome): Status: Acute (11) Irritable bowel syndrome with constipation: Status: Acute (12) Endometriosis determined by laparoscopy: Status: Acute Orders: Orders POC Urinalysis 2 Dip (Clinic) Today O09.90 - Supervision of high risk , unspecified, unspecified trimester CBC W/Diff, Automated Today O09.90 - Supervision of high risk , unspecified, unspecified trimester Glucose Challenge Gest 1H 50g Today O09.90 - Supervision of high risk , unspecified, unspecified trimester, Z13.1 - Encounter for screening for diabetes mellitus HIV Today O09.90 - Supervision of high risk , unspecified, unspecified trimester Syphilis Antibodies Today O09.90 - Supervision of high risk , unspecified, unspecified trimester Type & Screen Today O09.90 - Supervision of high risk , unspecified, unspecified trimester, O26.899 - Other specified related conditions, unspecified trimester, Z67.91 - Unspecified blood type, Rh negative 11/06/24 1135 sri CASTANEDA> Date _ Jacki Jernigan MD Cosign Signature: Date (if applicable) CC: ~ [facility]06-09-2025 Evaluation note* Diagnosis Onset Date Resolution Status Admit Date Adopted acute September 30, 2024 3:30pm Anxiety and depression acute Ju 2024 3:30pm Circumvallate placenta acute Ju 2024 3:30pm Endometriosis determined by laparoscopy acute September 30, 2024 3 :30pm Family history of congenital septal defect acute September 30, 2024 3 :30pm Edgar's disease acute September 30, 2024 3:30pm Irritable bowel syndrome wit h constipation acute September 30, 2024 3 :30pm Ischemic hepatitis acute September 302024 3:30pm PCOS (polycystic ovarian syndrome) acute September 30, 2024 3 :30pm acute September 30, 2024 3:30pm Rh negative status during acute September 30, 2024 3 :30pm Supervision of high-risk acute September 30, 2024 3 :30pm Palpitations resolved September 30 3:30pm Adopted acute November 06 10:56am Anxiety and depression acute ly 2024 10:56am Circumvallate placenta acute ly 2024 10:56am Endometriosis determined by laparoscopy acute November 06, 2024 10:56am Family history of congenital septal defect acute November 06, 2024 10:56am 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, 2024 10:56am Irritable bowel syndrome wit h constipation acute November 06, 2024 10:56am Ischemic hepatitis acute October 222024 10:56am PCOS (polycystic ovarian syndrome) acute November 06, 2024 10:56am acute November 06 10:56am Rh negative status during acute November 06, 2024 10:56am Supervision of high-risk acute November 06, 2024 10:56am Adopted acute November 20 8:33am Anxiety and depression acute ly 2024 8:33am Circumvallate placenta acute ly 2024 8:33am Endometriosis determined by laparoscopy acute November 20, 2024 8:33am Family history of congenital septal defect acute November 20, 2024 8:33am Edgar's disease acute November 20, 2024 8:33am Irritable bowel syndrome wit h constipation acute November 20, 2024 8:33am Ischemic hepatitis acute October 242024 8:33am PCOS (polycystic ovarian syndrome) acute November 20, 2024 8:33am acute November 20 8:33am Rh negative status during acute November 20, 2024 8:33am Supervision of high-risk acute November 20, 2024 8:33am Abnormal glucose affecting acute December 04 10:04am Adopted acute December 04 10:04am Anxiety and depression acute 2024 10:04am Circumvallate placenta acute Au 2024 10:04am Endometriosis determined by laparoscopy acute December 04 10:04am Family history of congenital septal defect acute December 04 10:04am Edgar's disease acute 2024 10:04am Irritable bowel syndrome wit h constipation acute December 04 10:04am Ischemic hepatitis acute December 04, 2024 10:04am PCOS (polycystic ovarian syndrome) acute December 04 10:04am acute December 04 10:04am Rh negative status during acute December 04 10:04am Supervision of high-risk acute December 04 10:04am Abnormal glucose affecting acute December 18 9:40am Adopted acute December 18 9:40am Anxiety and depression acute [facility] 2024 9:40am Circumvallate placenta acute 2024 9:40am Endometriosis determined by laparoscopy acute December 18 9:40am Family history of congenital septal defect acute December 18 9:40am Edgar's disease acute 2024 9:40am Irritable bowel syndrome wit h constipation acute December 18 9:40am Ischemic hepatitis acute December 18, 2024 9:40am PCOS (polycystic ovarian syndrome) acute December 18 9:40am acute December 18 9:40am Rh negative status during acute December 18 9:40am Supervision of high-risk acute December 18 9:40am Abnormal glucose affecting acute January 01, 2025 9:41am Adopted acute December 9:41am Anxiety and depression acute Se pt2024 9:41am Circumvallate placenta acute Se pt2024 9:41am Endometriosis determined by laparoscopy acute January 01, 2025 9:41am Family history of congenital septal defect acute January 01, 2025 9:41am Edgar's disease acute Sept2024 9:41am Irritable bowel syndrome wit h constipation acute January 01, 2025 9:41am Ischemic hepatitis acute Sept2024 9:41am PCOS (polycystic ovarian syndrome) acute January 01, 2025 9:41am acute December 9:41am Rh negative status during acute January 01, 2025 9:41am Supervision of high-risk acute January 01, 2025 9:41am Abnormal glucose affecting acute January 13, 2025 2:46pm Adopted acute December 2:46pm Anxiety and depression acute Se ptember 2024 2:46pm Circumvallate placenta acute Se ptember 2024 2:46pm Endometriosis determined by laparoscopy acute January 13, 2025 2:46pm Family history of congenital septal defect acute January 13, 2025 2:46pm Edgar's disease acute Septe 2024 2:46pm Irritable bowel syndrome wit h constipation acute January 13, 2025 2:46pm Ischemic hepatitis acute Septem 2024 2:46pm PCOS (polycystic ovarian syndrome) acute January 13, 2025 2:46pm acute December 2:46pm Rh negative status during acute January 13, 2025 2:46pm Supervision of high-risk acute January 13, 2025 2:46pm [facility] Work Phone: 1(138) 666-928206-09-2025 Evaluation note* Diagnosis Onset Date Resolution Status Admit Date Adopted acute September 30, 2024 3:30pm Anxiety and depression acute Ju 2024 3:30pm Circumvallate placenta acute Ju 2024 3:30pm Endometriosis determined by laparoscopy acute September 30, 2024 3 :30pm Family history of congenital septal defect acute September 30, 2024 3 :30pm Edgar's disease acute September 30, 2024 3:30pm Irritable bowel syndrome wit h constipation acute September 30, 2024 3 :30pm Ischemic hepatitis acute September 302024 3:30pm PCOS (polycystic ovarian syndrome) acute September 30, 2024 3 :30pm acute September 30, 2024 3:30pm Rh negative status during acute September 30, 2024 3 :30pm Supervision of high-risk acute September 30, 2024 3 :30pm Palpitations resolved September 30 3:30pm Adopted acute November 06 10:56am Anxiety and depression acute ly 2024 10:56am Circumvallate placenta acute ly 2024 10:56am Endometriosis determined by laparoscopy acute November 06, 2024 10:56am Family history of congenital septal defect acute November 06, 2024 10:56am 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, 2024 10:56am Irritable bowel syndrome wit h constipation acute November 06, 2024 10:56am Ischemic hepatitis acute October 222024 10:56am PCOS (polycystic ovarian syndrome) acute November 06, 2024 10:56am acute November 06 10:56am Rh negative status during acute November 06, 2024 10:56am Supervision of high-risk acute November 06, 2024 10:56am Adopted acute November 20 8:33am Anxiety and depression acute [facility] 2024 8:33am Circumvallate placenta acute [facility] 2024 8:33am Endometriosis determined by laparoscopy acute November 20, 2024 8:33am Family history of congenital septal defect acute November 20, 2024 8:33am Edgar's disease acute November 20, 2024 8:33am Irritable bowel syndrome wit h constipation acute November 20, 2024 8:33am Ischemic hepatitis acute October 242024 8:33am PCOS (polycystic ovarian syndrome) acute November 20, 2024 8:33am acute November 20 8:33am Rh negative status during acute November 20, 2024 8:33am Supervision of high-risk acute November 20, 2024 8:33am Abnormal glucose affecting acute December 04 10:04am Adopted acute December 04, 025 10:04am Anxiety and depression acute anais 2024 10:04am Circumvallate placenta acute [facility] 2024 10:04am Endometriosis determined by laparoscopy acute December 04 10:04am Family history of congenital septal defect acute December 04 10:04am Edgar's disease acute Aug[place] 2024 10:04am Irritable bowel syndrome wit h constipation acute December 04 10:04am Ischemic hepatitis acute December 04, 2024 10:04am PCOS (polycystic ovarian syndrome) acute December 04 10:04am acute December 04 025 10:04am Rh negative status during acute December 04 10:04am Supervision of high-risk acute December 04 10:04am Abnormal glucose affecting acute December 18 9:40am Adopted acute December 18 9:40am Anxiety and depression acute [place] 2024 9:40am Circumvallate placenta acute [place] 2024 9:40am Endometriosis determined by laparoscopy acute December 18 9:40am Family history of congenital septal defect acute December 18 9:40am Edgar's disease acute Augus t 2024 9:40am Irritable bowel syndrome wit h constipation acute December 18 9:40am Ischemic hepatitis acute December 18, 2024 9:40am PCOS (polycystic ovarian syndrome) acute December 18 9:40am acute December 18 9:40am Rh negative status during acute December 18 9:40am Supervision of high-risk acute December 18 9:40am Abnormal glucose affecting acute January 01, 2025 9:41am Adopted acute December 9:41am Anxiety and depression acute Se ptember 2024 9:41am Circumvallate placenta acute Se ptember 2024 9:41am Endometriosis determined by laparoscopy acute January 01, 2025 9:41am Family history of congenital septal defect acute January 01, 2025 9:41am Edgar's disease acute Septe mber 2024 9:41am Irritable bowel syndrome wit h constipation acute January 01, 2025 9:41am Ischemic hepatitis acute Septem cely 2024 9:41am PCOS (polycystic ovarian syndrome) acute January 01, 2025 9:41am acute December 9:41am Rh negative status during acute January 01, 2025 9:41am Supervision of high-risk acute January 01, 2025 9:41am Abnormal glucose affecting acute January 13, 2025 2:46pm Adopted acute December 2:46pm Anxiety and depression acute Se ptember 2024 2:46pm Circumvallate placenta acute Se ptember 2024 2:46pm Endometriosis determined by laparoscopy acute January 13, 2025 2:46pm Family history of congenital septal defect acute January 13, 2025 2:46pm Edgar's disease acute Septe mber 2024 2:46pm Irritable bowel syndrome wit h constipation acute January 13, 2025 2:46pm Ischemic hepatitis acute Septem cely 2024 2:46pm PCOS (polycystic ovarian syndrome) acute January 13, 2025 2:46pm acute December 2:46pm Rh negative status during acute January 13, 2025 2:46pm Supervision of high-risk acute January 13, 2025 2:46pm Abnormal glucose affecting acute January 24 1:05pm Adopted acute January 24, 2 025 1:05pm Anxiety and depression acute Oc tob2024 1:05pm Circumvallate placenta acute Oc tob2024 1:05pm Endometriosis determined by laparoscopy acute January 24 1:05pm Family history of congenital septal defect acute January 24 1:05pm Edgar's disease acute Octob er 2024 1:05pm Irritable bowel syndrome wit h constipation acute January 24 1:05pm Ischemic hepatitis acute Octobe r 2024 1:05pm PCOS (polycystic ovarian syndrome) acute January 24 1:05pm acute January 24, 2 025 1:05pm Rh negative status during acute January 24 1:05pm Supervision of high-risk acute January 24 1:05pm [facility] Work Phone: 1(207) 988-631506-09-2025 [facility] [address] [place] [address], [address] [place] [id number] OFFICE VISIT Date of Service: 09/30/24 MR#: [id number] Acct: [id number] Name: PATTIE BALDERAS Rep #: [id number] : 1995 Provider: LITO Montalvo Age/Sex: 29/F Location: [facility] Status: Signed Intake Vital Signs 08/06/24 08:50 09/03/24 09:28 09/30/24 15:34 Height 5 ft 4 in 5 ft 4 in 5 ft 4 in Weight: 158 lb 2 oz BMI 27.1 BP 114/77 Intake Visit Reasons: 21wk ob Exhibition Specialist Required: No Is patient in pain?: No Allergies gluten Allergy (Verified 09/30/24 15:35) GI upset milk Allergy (Verified 09/30/24 15:35) GI upset tea tree Allergy (Verified 09/30/24 15:35) Hives Medications ?Medication ?Instructions ?Recorded ?Confirmed ?Type cetirizine 10 mg capsule (Zyrtec) 10 mg PO DAILY aller gies 10/07/19 09/30/24 History cholecalciferol (vitamin D3) 25 50 mcg PO DAILY supple ment 05/06/21 09/30/24 History mcg (1,000 unit) capsule (Vitamin D3) magnesium 250 mg tablet 250 mg PO DAILY supplement 0 06/18/21 09/30/24 History citalopram 40 mg tablet 40 mg PO DAILY 10/14/2101/16 History buspirone 5 mg tablet 5 mg PO TID 06/21/24 5 History docosahexaenoic acid 200 mg mg PO 06/21/24 09/30/24 Hi story capsule ( DHA) Last Menstrual Period: 05/02/24 Zika: Zika virus screening: Negative : No PFSH PFSH Medical History Ischemic hepatitis Allergic contact dermatitis Transaminitis Intestinal metaplasia of stomach without dysplasia Pyloric ulcer Irritable bowel syndrome with constipation Ovarian cyst Migraine headache Syncope Asthma Surgical History Hx of exploratory laparotomy Hx of colonoscopy with polypectomy 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: No pets and animals: Yes pets and animals: dog(s) history of recent travel: Yes ([place] 2023) out of state: Yes out of country: No sexually active: Yes Smoking Status: Never smoker alcohol intake: current alcohol intake frequency: holidays/special occasions only details: Not while substance use type: does not use diet: gluten free and lactose free well-balanced diet: daily or most days caffeine: No eating out: 1-3 times/week during the past year weight has: increased > 10 lbs what type of physical activity do you participate in: walking, yoga and weight training frequency: 1-2 times per week duration: 15-30 minutes/day fredy/faith: [employer]ian seatbelt use: always do you feel safe at home: Yes 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 OB Visit RADHA Calculator Estimated Delivery Date Method Current WG Current Estimate 02/06/25 LMP (Certain) 21w 4d Other Estimates 02/11/25 Ultrasound #1 20w 6d Expected Delivery Route/Plan Labor Preferences- CB/BF classes: [] labor support person: [] labor intervention preferences: [] pain management options preferred: [] cut cord/dad catch: [] : [] PP control planned: [] discussed possible routes of delivery and associated risks: [] special requests: [] Specific Issue/Plans Covid status: [] Flu vaccine: [] Tdap vaccine: [] Rhogam: [] LARC form signed: [] Problem list reviewed and updated with the most current plan of care details and appropriate ordersplaced. Relevant counseling for the gestational age provided. Continue routine care and follow up unless otherwise noted in visit notes/problem list details Initial Weight: 148 lb Date -?-?-?-?-?-?-?-?-?-?-?-?- EGA Weight BP Urine Prot -?-?-?-?-?-?-?-?-?-?-?-?- Glucose FHR FuHt Pres Dilation -?-?-?-?-?-?-?-?-?-?-?-?- Effaced St Visit Note 07/12/24 -?-?-?-?-?-?-?-?-?-?-?-?- 10w 1d 148 lb 8 oz (+8 oz) 112/72 -?-?-?-?-?-?-?-?-?-?-?-?- 178 -?-?-?-?--?-?-?-?-?-?-?-?- KW- CRL cons wit h date. declines NIPT. KW- CRL cons with date. decl crissy NIPT. Will need MFM anatomy US for FOB hx of heart issue. 07/24/24 -?-?-?-?-?-?-?-?-?-?--?-?- 11w 6d 148 lb 4 oz (+4 oz) 112/72 Trace -?-?-?-?-?-?-?-?-?-?-?-?- Negative 165 -?-?-?-?-?-?-?-?-?-?-?-?- Sm- no vb crampi ng some palpitations no cp sob 08/06/24 -?-?-?-?-?-?-?-?-?-?-?-?- 13w 5d 148 lb 2 oz (+2 oz) 118/74 Negative -?-?-?-?-?-?-?--?-?-?-?-?- Negative 158 -?-?-?-?-?-?-?-?-?-?-?-?- JV- no lof, vagi nal bleeding, or cramping. has antomy scan ordered. nausea is improved. 09/03/24 -?-?-?-?-?-?-?-?-?-?-?-?- 17w 5d 150 lb 2 oz (+2 lb 2 oz) 120/73 Negative -?-?-?-?-?-?-?-?-?-?-?-?- Negative 145 -?-?-?-?--?-?-?-?-?-?-?-?- SM- no vb crampi ng 09/30/24 -?-?-?-?-?-?-?-?-?-?-?-?- 21w 4d 158 lb 2 oz (+10 lb 2 oz) 114/77 Negative -?--?-?-?-?-?-?-?-?-?-?-?- Negative 150 20 -?-?-?-?-?-?-?-?-?-?-?-?- KW- no vb/crampi ng. some fm. reviewed scans. ACOG First Trimester First Trimester: Discussed Second Trimester Second Trimester: Signs and Symptoms of Labor, Selecting a care provider, Reproductive Life Planning & Contreception, Care Planning, Depression/Anxiety and Intimate Partner Violence; Discussed Tobacco Cessation Third Trimester Third Trimester: Pain Management Plans, Labor support person(s), Immediate Larc, Signs and Symptoms of Preeclampsia, Feeding No , Education and Family Medical Leave or Disability Forms ROS Const Reports system reviewed and no additional complaints, except as documented Eyes Reports system reviewed and no additional complaints, except as documented ENT Reports system reviewed and no additional complaints, except as documented Card Reports system reviewed and no additional complaints, except as documented Resp Reports system reviewed and no additional complaints, except as documented GI Reports system reviewed and no additional complaints, except as documented, Denies nausea and Denies vomiting Reports system reviewed and no additional complaints, except as documented Musc Reports system reviewed and no additional complaints, except as documented Skin/Breast Reports system reviewed and no additional complaints, except as documented Neuro Yes system reviewed and no additional complaints, except as documented Psych Reports system reviewed and no additional complaints, except as documented Endo Reports system reviewed and no additional complaints, except as documented Nik/Lymph Reports system reviewed and no additional complaints, except as documented Aller/Immun Reports system reviewed and no additional complaints, except as documented Exam Const General: cooperative, healthy appearing and no acute distress Orientation: alert, awake and oriented x3 Neck Neck: normal visual inspection and full ROM Resp Effort & Inspection: normal respiratory effort, able to speak in complete sentences and symmetric chest movement GI Inspection: normal to inspection Palpation: soft and other Other: gravid Skin General: no rashes or lesions noted Neuro General: patient alert, patient awake and patient oriented x3 Cognition: normal cognition Speech: speech normal Gait: normal gait Motor: muscle tone normal throughout Extrem General: normal to inspection and full ROM Psych Appearance: grossly normal Mental Status: mental status grossly normal Mood: congruent mood Affect: normal affect Speech and Movement: speech and movement normal Attitude: cooperative Thought Process: normal Thought Content: normal Judgment: judgment good Results POC Urinalysis 2 Dip (Clinic) Office Urine Glucose Negative Last Edit by Sherry Sheikh on 09/30/24 15:39 Office Urine Protein Negative Last Edit by Sherry Sheikh on 09/30/24 15:39 Coding Level of Care Code OB Routine Diagnoses Family history of congenital septal defect Z82.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 Palpitations R00.2 Rh negative status during O26.899; Z67.91 Supervision of high-risk O09.90 21 weeks gestation of Z3A.21 Weeks of gestation: 21 weeks 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 (4) Rh negative status during : Status: Acute Comment: O-, Rhogam @ 28wks & as needed (5) Supervision of high-risk : Status: Acute Comment: PRR, G1, RADHA 02/06/25, : Mandeep (has septal defect) (6) : Status: Acute Qualifiers: Weeks of gestation: 21 weeks Qualified Code(s): Z3A.21 - 21 weeks gestation of Comment: Discussed genetic/carrier testing - undecided, need f/u anatomy views. (7) Adopted: Status: Acute Comment: Unknown family medical hx (8) Edgar's disease: Status: Acute (9) Ischemic hepatitis: Status: Acute (10) Anxiety and depression: Status: Acute Comment: On Prozac & Just started counseling (11) PCOS (polycystic ovarian syndrome): Status: Acute (12) Irritable bowel syndrome with constipation: Status: Acute (13) Endometriosis determined by laparoscopy: Status: Acute Orders: Orders POC Urinalysis 2 Dip (Clinic) Today Plan Details Additional Comments: ACOG trimester education reviewed and updated. see problem list details for updated plan management information and see below for orders placed atthis visit. GA appropriate handout given. 09/30/24 1557 s LITO> Date _ Debra Montalvo CNM Cosigner Signature: Date (if applicable) CC: ~ [facility]06-09-2025 Progress note Author Debra Montalvo [facility] Note Date/Time September 30, 2024 3:57p [facility] [address] [place] [address], [address] [place] [address] OFFICE VISIT Date of Service: 09/30/24 MR#: [id number] Acct: [id number] Name: PATTIE BALDERAS MATEO Rep #: [id number] : 1995 Provider: LITO Montalvo Age/Sex: 29/F Location: [facility] Status: Signed Intake Vital Signs 08/06/24 08:50 09/03/24 09:28 09/30/24 15:34 Height 5 ft 4 in 5 ft 4 in 5 ft 4 in Weight: 158 lb 2 oz BMI 27.1 BP 114/77 Intake Visit Reasons: 21wk ob Exhibition Specialist Required: No Is patient in pain?: No Allergies gluten Allergy (Verified 09/30/24 15:35) GI upset milk Allergy (Verified 09/30/24 15:35) GI upset tea tree Allergy (Verified 09/30/24 15:35) Hives Medications ?Medication ?Instructions ?Recorded ?Confirmed ?Type cetirizine 10 mg capsule (Zyrtec) 10 mg PO DAILY aller gies 10/07/19 09/30/24 History cholecalciferol (vitamin D3) 25 50 mcg PO DAILY supple ment 05/06/21 09/30/24 History mcg (1,000 unit) capsule (Vitamin D3) magnesium 250 mg tablet 250 mg PO DAILY supplement 0 06/18/21 09/30/24 History citalopram 40 mg tablet 40 mg PO DAILY 10/14/2101/16 History buspirone 5 mg tablet 5 mg PO TID 06/21/24 5 History docosahexaenoic acid 200 mg mg PO 06/21/24 09/30/24 Hi story capsule ( DHA) Last Menstrual Period: 05/02/24 Zika: Zika virus screening: Negative : No PFSH PFSH Medical History Ischemic hepatitis Allergic contact dermatitis Transaminitis Intestinal metaplasia of stomach without dysplasia Pyloric ulcer Irritable bowel syndrome with constipation Ovarian cyst Migraine headache Syncope Asthma Surgical History Hx of exploratory laparotomy Hx of colonoscopy with polypectomy 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: No pets and animals: Yes pets and animals: dog(s) history of recent travel: Yes ([facility] 2023) out of state: Yes out of country: No sexually active: Yes Smoking Status: Never smoker alcohol intake: current alcohol intake frequency: holidays/special occasions only details: Not while substance use type: does not use diet: gluten free and lactose free well-balanced diet: daily or most days caffeine: No eating out: 1-3 times/week during the past year weight has: increased > 10 lbs what type of physical activity do you participate in: walking, yoga and weight training frequency: 1-2 times per week duration: 15-30 minutes/day fredy/faith: [employer] seatbelt use: always do you feel safe at home: Yes 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 OB Visit RADHA Calculator Estimated Delivery Date Method Current WG Current Estimate 02/06/25 LMP (Certain) 21w 4d Other Estimates 02/11/25 Ultrasound #1 20w 6d Expected Delivery Route/Plan Labor Preferences- CB/BF classes: [] labor support person: [] labor intervention preferences: [] pain management options preferred: [] cut cord/dad catch: [] : [] PP control planned: [] discussed possible routes of delivery and associated risks: [] special requests: [] Specific Issue/Plans Covid status: [] Flu vaccine: [] Tdap vaccine: [] Rhogam: [] LARC form signed: [] Problem list reviewed and updated with the most current plan of care details and appropriate orders placed. Relevant counseling for the gestational age provided. Continue routine care and follow up unless otherwise noted in visit notes/problem list details Initial Weight: 148 lb Date -?-?-?-?-?-?-?-?-?-?-?-?- EGA Weight BP Urine Prot -?-?-?-?-?-?-?-?-?-?-?-?- Glucose FHR FuHt Pres Dilation -?-?-?-?-?-?-?-?-?-?-?-?- Effaced St Visit Note 07/12/24 -?-?-?-?-?-?-?-?-?-?-?-?- 10w 1d 148 lb 8 oz (+8 oz) 112/72 -?-?-?-?-?-?-?-?-?-?-?-?- 178 -?-?-?-?--?-?-?-?-?-?-?-?- KW- CRL cons wit h date. declines NIPT. KW- CRL cons with date. decl crissy NIPT. Will need MFM anatomy US for FOB hx of heart issue. 07/24/24 -?-?-?-?-?-?-?-?-?-?--?-?- 11w 6d 148 lb 4 oz (+4 oz) 112/72 Trace -?-?-?-?-?-?-?-?-?-?-?-?- Negative 165 -?-?-?-?-?-?-?-?-?-?-?-?- Sm- no vb crampi ng some palpitations no cp sob 08/06/24 -?-?-?-?-?-?-?-?-?-?-?-?- 13w 5d 148 lb 2 oz (+2 oz) 118/74 Negative -?-?-?-?-?-?-?--?-?-?-?-?- Negative 158 -?-?-?-?-?-?-?-?-?-?-?-?- JV- no lof, vagi nal bleeding, or cramping. has antomy scan ordered. nausea is improved. 09/03/24 -?-?-?-?-?-?-?-?-?-?-?-?- 17w 5d 150 lb 2 oz (+2 lb 2 oz) 120/73 Negative -?-?-?-?-?-?-?-?-?-?-?-?- Negative 145 -?-?-?-?--?-?-?-?-?-?-?-?- SM- no vb crampi ng 09/30/24 -?-?-?-?-?-?-?-?-?-?-?-?- 21w 4d 158 lb 2 oz (+10 lb 2 oz) 114/77 Negative -?--?-?-?-?-?-?-?-?-?-?-?- Negative 150 20 -?-?-?-?-?-?-?-?-?-?-?-?- KW- no vb/crampi ng. some fm. reviewed scans. ACOG First Trimester First Trimester: Discussed Second Trimester Second Trimester: Signs and Symptoms of Labor, Selecting a care provider, Reproductive Life Planning & Contreception, Care Planning, Depression/Anxiety and Intimate Partner Violence; Discussed Tobacco Cessation Third Trimester Third Trimester: Pain Management Plans, Labor support person(s), Immediate Larc, Signs and Symptoms of Preeclampsia, Feeding No , Education and Family Medical Leave or Disability Forms ROS Const Reports system reviewed and no additional complaints, except as documented Eyes Reports system reviewed and no additional complaints, except as documented ENT Reports system reviewed and no additional complaints, except as documented Card Reports system reviewed and no additional complaints, except as documented Resp Reports system reviewed and no additional complaints, except as documented GI Reports system reviewed and no additional complaints, except as documented, Denies nausea and Denies vomiting Reports system reviewed and no additional complaints, except as documented Musc Reports system reviewed and no additional complaints, except as documented Skin/Breast Reports system reviewed and no additional complaints, except as documented Neuro Yes system reviewed and no additional complaints, except as documented Psych Reports system reviewed and no additional complaints, except as documented Endo Reports system reviewed and no additional complaints, except as documented Nik/Lymph Reports system reviewed and no additional complaints, except as documented Aller/Immun Reports system reviewed and no additional complaints, except as documented Exam Const General: cooperative, healthy appearing and no acute distress Orientation: alert, awake and oriented x3 Neck Neck: normal visual inspection and full ROM Resp Effort & Inspection: normal respiratory effort, able to speak in complete sentences and symmetric chest movement GI Inspection: normal to inspection Palpation: soft and other Other: gravid Skin General: no rashes or lesions noted Neuro General: patient alert, patient awake and patient oriented x3 Cognition: normal cognition Speech: speech normal Gait: normal gait Motor: muscle tone normal throughout Extrem General: normal to inspection and full ROM Psych Appearance: grossly normal Mental Status: mental status grossly normal Mood: congruent mood Affect: normal affect Speech and Movement: speech and movement normal Attitude: cooperative Thought Process: normal Thought Content: normal Judgment: judgment good Results POC Urinalysis 2 Dip (Clinic) Office Urine Glucose Negative Last Edit by Sherry Sheikh on 09/30/24 15:39 Office Urine Protein Negative Last Edit by Sherry Sheikh on 09/30/24 15:39 Coding Level of Care Code OB Routine Diagnoses Family history of congenital septal defect 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.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 Palpitations R00.2 Rh negative status during O26.899; Z67.91 Supervision of high-risk O09.90 21 weeks gestation of Z3A.21 Weeks of gestation: 21 weeks 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 (4) Rh negative status during : Status: Acute Comment: O-, Rhogam @ 28wks & as needed (5) Supervision of high-risk : Status: Acute Comment: PRR, G1, RADHA 02/06/25, : Mandeep (has septal defect) (6) : Status: Acute Qualifiers: Weeks of gestation: 21 weeks Qualified Code(s): Z3A.21 - 21 weeks gestation of Comment: Discussed genetic/carrier testing - undecided, need f/u anatomy views. (7) Adopted: Status: Acute Comment: Unknown family medical hx (8) Edgar's disease: Status: Acute (9) Ischemic hepatitis: Status: Acute (10) Anxiety and depression: Status: Acute Comment: On Prozac & Just started counseling (11) PCOS (polycystic ovarian syndrome): Status: Acute (12) Irritable bowel syndrome with constipation: Status: Acute (13) Endometriosis determined by laparoscopy: Status: Acute Orders: Orders POC Urinalysis 2 Dip (Clinic) Today Plan Details Additional Comments: ACOG trimester education reviewed and updated. see problem list details for updated plan management information and see below for orders placed at this visit. [place] appropriate handout given. 09/30/24 1557 <Electronically signed by Debra rboerts CNM> Date _ Debra Montalvo CNM Cosigner Signature: Date (if applicable) CC: ~ [facility] Work Phone: 1(627) 613-797905-13-2025 Evaluation note* Diagnosis Onset Date Resolution Status Admit Date Adopted acute September 03, 2024 9:26am Anxiety and depression acute Ma y 2024 9:26am Endometriosis determined by laparoscopy acute September 03, 2024 9 :26am 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 9:26am Irritable bowel syndrome wit h constipation acute September 03, 2024 9 :26am Ischemic hepatitis acute September 032024 9:26am PCOS (polycystic ovarian syndrome) acute September 03, 2024 9 :26am acute September 03, 2024 9:26am Rh negative status during acute September 03, 2024 9 :26am Supervision of high-risk acute September 03, 2024 9 :26am Palpitations resolved September 03 9:26am Adopted acute September 30, 2024 3:30pm Anxiety and depression acute [place] 2024 3:30pm Circumvallate placenta acute [place] 2024 3:30pm Endometriosis determined by laparoscopy acute September 30, 2024 3 :30pm Family history of congenital septal defect acute September 30, 2024 3 :30pm Edgar's disease acute September 30, 2024 3:30pm Irritable bowel syndrome wit h constipation acute September 30, 2024 3 :30pm Ischemic hepatitis acute September 302024 3:30pm PCOS (polycystic ovarian syndrome) acute September 30, 2024 3 :30pm acute September 30, 2024 3:30pm Rh negative status during acute September 30, 2024 3 :30pm Supervision of high-risk acute September 30, 2024 3 :30pm Palpitations resolved September 30 3:30pm Adopted acute November 06 10:56am Anxiety and depression acute Ju ly 2024 10:56am Circumvallate placenta acute Ju ly 2024 10:56am Endometriosis determined by laparoscopy acute November 06, 2024 10:56am Family history of congenital septal defect acute November 06, 2024 10:56am 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, 2024 10:56am Irritable bowel syndrome wit h constipation acute November 06, 2024 10:56am Ischemic hepatitis acute October 222024 10:56am PCOS (polycystic ovarian syndrome) acute November 06, 2024 10:56am acute November 06 10:56am Rh negative status during acute November 06, 2024 10:56am Supervision of high-risk acute November 06, 2024 10:56am Adopted acute November 20 8:33am Anxiety and depression acute Ju ly 2024 8:33am Circumvallate placenta acute Ju ly 2024 8:33am Endometriosis determined by laparoscopy acute November 20, 2024 8:33am Family history of congenital septal defect acute November 20, 2024 8:33am Edgar's disease acute November 20, 2024 8:33am Irritable bowel syndrome wit h constipation acute November 20, 2024 8:33am Ischemic hepatitis acute October 242024 8:33am PCOS (polycystic ovarian syndrome) acute November 20, 2024 8:33am acute November 20 8:33am Rh negative status during acute November 20, 2024 8:33am Supervision of high-risk acute November 20, 2024 8:33am Abnormal glucose affecting acute December 04 10:04am Adopted acute December 04, 025 10:04am Anxiety and depression acute [place] 2024 10:04am Circumvallate placenta acute [place] 2024 10:04am Endometriosis determined by laparoscopy acute December 04 10:04am Family history of congenital septal defect acute December 04 10:04am Edgar's disease acute [facility] 2024 10:04am Irritable bowel syndrome wit h constipation acute December 04 10:04am Ischemic hepatitis acute December 04, 2024 10:04am PCOS (polycystic ovarian syndrome) acute December 04 10:04am acute December 04, 2 025 10:04am Rh negative status during acute December 04 10:04am Supervision of high-risk acute December 04 10:04am [facility] Work Phone: 1([phone]) 523-153205-13-2025 Evaluation note* Diagnosis Onset Date Resolution Status Admit Date Adopted acute September 03, 2024 9:26am Anxiety and depression acute Ma y 2024 9:26am Endometriosis determined by laparoscopy acute September 03, 2024 9 :26am 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 9:26am Irritable bowel syndrome wit h constipation acute September 03, 2024 9 :26am Ischemic hepatitis acute September 032024 9:26am PCOS (polycystic ovarian syndrome) acute September 03, 2024 9 :26am acute September 03, 2024 9:26am Rh negative status during acute September 03, 2024 9 :26am Supervision of high-risk acute September 03, 2024 9 :26am Palpitations resolved September 03 9:26am Adopted acute September 30, 2024 3:30pm Anxiety and depression acute Ju 2024 3:30pm Circumvallate placenta acute Ju ne 2024 3:30pm Endometriosis determined by laparoscopy acute September 30, 2024 3 :30pm Family history of congenital septal defect acute September 30, 2024 3 :30pm Edgar's disease acute September 30, 2024 3:30pm Irritable bowel syndrome wit h constipation acute September 30, 2024 3 :30pm Ischemic hepatitis acute September 302024 3:30pm PCOS (polycystic ovarian syndrome) acute September 30, 2024 3 :30pm acute September 30, 2024 3:30pm Rh negative status during acute September 30, 2024 3 :30pm Supervision of high-risk acute September 30, 2024 3 :30pm Palpitations resolved September 30 3:30pm Adopted acute November 06 10:56am Anxiety and depression acute Ju ly 2024 10:56am Circumvallate placenta acute Ju ly 2024 10:56am Endometriosis determined by laparoscopy acute November 06, 2024 10:56am Family history of congenital septal defect acute November 06, 2024 10:56am 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, 2024 10:56am Irritable bowel syndrome wit h constipation acute November 06, 2024 10:56am Ischemic hepatitis acute October 222024 10:56am PCOS (polycystic ovarian syndrome) acute November 06, 2024 10:56am acute November 06 10:56am Rh negative status during acute November 06, 2024 10:56am Supervision of high-risk acute November 06, 2024 10:56am Adopted acute November 20 8:33am Anxiety and depression acute Ju ly 2024 8:33am Circumvallate placenta acute Ju ly 2024 8:33am Endometriosis determined by laparoscopy acute November 20, 2024 8:33am Family history of congenital septal defect acute November 20, 2024 8:33am Edgar's disease acute November 20, 2024 8:33am Irritable bowel syndrome wit h constipation acute November 20, 2024 8:33am Ischemic hepatitis acute October 242024 8:33am PCOS (polycystic ovarian syndrome) acute November 20, 2024 8:33am acute November 20 8:33am Rh negative status during acute November 20, 2024 8:33am Supervision of high-risk acute November 20, 2024 8:33am Abnormal glucose affecting acute December 04 10:04am Adopted acute December 04 025 10:04am Anxiety and depression acute [place] 2024 10:04am Circumvallate placenta acute [place] 2024 10:04am Endometriosis determined by laparoscopy acute December 04 10:04am Family history of congenital septal defect acute December 04 10:04am Edgar's disease acute [place] [place] 2024 10:04am Irritable bowel syndrome wit h constipation acute December 04 10:04am Ischemic hepatitis acute December 04, 2024 10:04am PCOS (polycystic ovarian syndrome) acute December 04 10:04am acute December 04, 025 10:04am Rh negative status during acute December 04 10:04am Supervision of high-risk acute December 04 10:04am Abnormal glucose affecting acute December 18 9:40am Adopted acute December 18, 2 025 9:40am Anxiety and depression acute [place] 2024 9:40am Circumvallate placenta acute [place] 2024 9:40am Endometriosis determined by laparoscopy acute December 18 9:40am Family history of congenital septal defect acute December 18 9:40am Edgar's disease acute [place] [place] 2024 9:40am Irritable bowel syndrome wit h constipation acute December 18 9:40am Ischemic hepatitis acute December 18, 2024 9:40am PCOS (polycystic ovarian syndrome) acute December 18 9:40am acute December 18 9:40am Rh negative status during acute December 18 9:40am Supervision of high-risk acute December 18 9:40am [facility] Work Phone: 1(118) 903-954205-13-2025 Evaluation note* Diagnosis Onset Date Resolution Status Admit Date Adopted acute September 03, 2024 9:26am Anxiety and depression acute Ma y 2024 9:26am Endometriosis determined by laparoscopy acute September 03, 2024 9 :26am 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 9:26am Irritable bowel syndrome wit h constipation acute September 03, 2024 9 :26am Ischemic hepatitis acute September 032024 9:26am PCOS (polycystic ovarian syndrome) acute September 03, 2024 9 :26am acute September 03, 2024 9:26am Rh negative status during acute September 03, 2024 9 :26am Supervision of high-risk acute September 03, 2024 9 :26am Palpitations resolved September 03 9:26am Adopted acute September 30, 2024 3:30pm Anxiety and depression acute [place] 2024 3:30pm Circumvallate placenta acute Ju ne 2024 3:30pm Endometriosis determined by laparoscopy acute September 30, 2024 3 :30pm Family history of congenital septal defect acute September 30, 2024 3 :30pm Edgar's disease acute September 30, 2024 3:30pm Irritable bowel syndrome wit h constipation acute September 30, 2024 3 :30pm Ischemic hepatitis acute September 302024 3:30pm PCOS (polycystic ovarian syndrome) acute September 30, 2024 3 :30pm acute September 30, 2024 3:30pm Rh negative status during acute September 30, 2024 3 :30pm Supervision of high-risk acute September 30, 2024 3 :30pm Palpitations resolved September 30 3:30pm Adopted acute November 06 10:56am Anxiety and depression acute Ju ly 2024 10:56am Circumvallate placenta acute Ju ly 2024 10:56am Endometriosis determined by laparoscopy acute November 06, 2024 10:56am Family history of congenital septal defect acute November 06, 2024 10:56am 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, 2024 10:56am Irritable bowel syndrome wit h constipation acute November 06, 2024 10:56am Ischemic hepatitis acute October 222024 10:56am PCOS (polycystic ovarian syndrome) acute November 06, 2024 10:56am acute November 06 10:56am Rh negative status during acute November 06, 2024 10:56am Supervision of high-risk acute November 06, 2024 10:56am Adopted acute November 20 8:33am Anxiety and depression acute [place] 2024 8:33am Circumvallate placenta acute Ju ly 2024 8:33am Endometriosis determined by laparoscopy acute November 20, 2024 8:33am Family history of congenital septal defect acute November 20, 2024 8:33am Edgar's disease acute November 20, 2024 8:33am Irritable bowel syndrome wit h constipation acute November 20, 2024 8:33am Ischemic hepatitis acute October 242024 8:33am PCOS (polycystic ovarian syndrome) acute November 20, 2024 8:33am acute November 20 8:33am Rh negative status during acute November 20, 2024 8:33am Supervision of high-risk acute November 20, 2024 8:33am Abnormal glucose affecting acute December 04 10:04am Adopted acute December 04, 025 10:04am Anxiety and depression acute [place] 2024 10:04am Circumvallate placenta acute [facility] 2024 10:04am Endometriosis determined by laparoscopy acute December 04 10:04am Family history of congenital septal defect acute December 04 10:04am Edgar's disease acute [place] 2024 10:04am Irritable bowel syndrome wit h constipation acute December 04 10:04am Ischemic hepatitis acute December 04, 2024 10:04am PCOS (polycystic ovarian syndrome) acute December 04 10:04am acute December 04 10:04am Rh negative status during acute December 04 10:04am Supervision of high-risk acute December 04 10:04am Abnormal glucose affecting acute December 18 9:40am Adopted acute December 18 9:40am Anxiety and depression acute [facility] 2024 9:40am Circumvallate placenta acute [facility] 2024 9:40am Endometriosis determined by laparoscopy acute December 18 9:40am Family history of congenital septal defect acute December 18 9:40am Edgar's disease acute [place] 2024 9:40am Irritable bowel syndrome wit h constipation acute December 18 9:40am Ischemic hepatitis acute December 18, 2024 9:40am PCOS (polycystic ovarian syndrome) acute December 18 9:40am acute December 18 9:40am Rh negative status during acute December 18 9:40am Supervision of high-risk acute December 18 9:40am Abnormal glucose affecting acute January 01, 2025 9:41am Adopted acute December 9:41am Anxiety and depression acute [place] 2024 9:41am Circumvallate placenta acute [place] 2024 9:41am Endometriosis determined by laparoscopy acute January 01, 2025 9:41am Family history of congenital septal defect acute January 01, 2025 9:41am Edgar's disease acute [place] 2024 9:41am Irritable bowel syndrome wit h constipation acute January 01, 2025 9:41am Ischemic hepatitis acute [place] 2024 9:41am PCOS (polycystic ovarian syndrome) acute January 01, 2025 9:41am acute December 9:41am Rh negative status during acute January 01, 2025 9:41am Supervision of high-risk acute January 01, 2025 9:41am [facility] Work Phone: 1(282) 513-585504-15-2025 Evaluation note* Diagnosis Onset Date Resolution Status Admit Date Adopted acute August 06 8:46am Anxiety and depression acute [place] 2024 8:46am Endometriosis determined by laparoscopy acute August 06, 2024 8:46am 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, 2024 8:46am Irritable bowel syndrome wit h constipation acute August 06, 2024 8:46am Ischemic hepatitis acute August 06, 2024 8:46am PCOS (polycystic ovarian syndrome) acute August 06, 2024 8:46am acute August 06 8:46am Rh negative status during acute August 06, 2024 8:46am Supervision of high-risk acute August 06, 2024 8:46am Palpitations resolved August 06, 2024 8:46am Adopted acute September 03, 2024 9:26am Anxiety and depression acute Ma 2024 9:26am Endometriosis determined by laparoscopy acute September 03, 2024 9 :26am 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 9:26am Irritable bowel syndrome wit h constipation acute September 03, 2024 9 :26am Ischemic hepatitis acute September 032024 9:26am PCOS (polycystic ovarian syndrome) acute September 03, 2024 9 :26am acute September 03, 2024 9:26am Rh negative status during acute September 03, 2024 9 :26am Supervision of high-risk acute September 03, 2024 9 :26am Palpitations resolved September 03 9:26am Adopted acute September 30, 2024 3:30pm Anxiety and depression acute Ju 2024 3:30pm Circumvallate placenta acute Ju 2024 3:30pm Endometriosis determined by laparoscopy acute September 30, 2024 3 :30pm Family history of congenital septal defect acute September 30, 2024 3 :30pm Edgar's disease acute September 30, 2024 3:30pm Irritable bowel syndrome wit h constipation acute September 30, 2024 3 :30pm Ischemic hepatitis acute September 302024 3:30pm PCOS (polycystic ovarian syndrome) acute September 30, 2024 3 :30pm acute September 30, 2024 3:30pm Rh negative status during acute September 30, 2024 3 :30pm Supervision of high-risk acute September 30, 2024 3 :30pm Palpitations resolved September 30 3:30pm Adopted acute November 06 10:56am Anxiety and depression acute ly 2024 10:56am Circumvallate placenta acute ly 2024 10:56am Endometriosis determined by laparoscopy acute November 06, 2024 10:56am Family history of congenital septal defect acute November 06, 2024 10:56am 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, 2024 10:56am Irritable bowel syndrome wit h constipation acute November 06, 2024 10:56am Ischemic hepatitis acute October 222024 10:56am PCOS (polycystic ovarian syndrome) acute November 06, 2024 10:56am acute November 06 10:56am Rh negative status during acute November 06, 2024 10:56am Supervision of high-risk acute November 06, 2024 10:56am Adopted acute November 20 8:33am Anxiety and depression acute ly 2024 8:33am Circumvallate placenta acute ly 2024 8:33am Endometriosis determined by laparoscopy acute November 20, 2024 8:33am Family history of congenital septal defect acute November 20, 2024 8:33am Edgar's disease acute November 20, 2024 8:33am Irritable bowel syndrome wit h constipation acute November 20, 2024 8:33am Ischemic hepatitis acute October 242024 8:33am PCOS (polycystic ovarian syndrome) acute November 20, 2024 8:33am acute November 20 8:33am Rh negative status during acute November 20, 2024 8:33am Supervision of high-risk acute November 20, 2024 8:33am [facility] Work Phone: 1([phone]) 814-660604-15-2025 Evaluation note* Diagnosis Onset Date Resolution Status Admit Date Adopted acute August 06 8:46am Anxiety and depression acute Ap r[place] 2024 8:46am Endometriosis determined by laparoscopy acute August 06, 2024 8:46am 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, 2024 8:46am Irritable bowel syndrome wit h constipation acute August 06, 2024 8:46am Ischemic hepatitis acute August 06, 2024 8:46am PCOS (polycystic ovarian syndrome) acute August 06, 2024 8:46am acute August 06 8:46am Rh negative status during acute August 06, 2024 8:46am Supervision of high-risk acute August 06, 2024 8:46am Palpitations resolved August 06, 2024 8:46am Adopted acute September 03, 2024 9:26am Anxiety and depression acute Ma 2024 9:26am Endometriosis determined by laparoscopy acute September 03, 2024 9 :26am 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 9:26am Irritable bowel syndrome wit h constipation acute September 03, 2024 9 :26am Ischemic hepatitis acute September 032024 9:26am PCOS (polycystic ovarian syndrome) acute September 03, 2024 9 :26am acute September 03, 2024 9:26am Rh negative status during acute September 03, 2024 9 :26am Supervision of high-risk acute September 03, 2024 9 :26am Palpitations resolved September 03 9:26am Adopted acute September 30, 2024 3:30pm Anxiety and depression acute [place] 2024 3:30pm Circumvallate placenta acute [place] 2024 3:30pm Endometriosis determined by laparoscopy acute September 30, 2024 3 :30pm Family history of congenital septal defect acute September 30, 2024 3 :30pm Edgar's disease acute September 30, 2024 3:30pm Irritable bowel syndrome wit h constipation acute September 30, 2024 3 :30pm Ischemic hepatitis acute September 302024 3:30pm PCOS (polycystic ovarian syndrome) acute September 30, 2024 3 :30pm acute September 30, 2024 3:30pm Rh negative status during acute September 30, 2024 3 :30pm Supervision of high-risk acute September 30, 2024 3 :30pm Palpitations resolved September 30 3:30pm Adopted acute November 06 10:56am Anxiety and depression acute [place] 2024 10:56am Circumvallate placenta acute [place] 2024 10:56am Endometriosis determined by laparoscopy acute November 06, 2024 10:56am Family history of congenital septal defect acute November 06, 2024 10:56am 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, 2024 10:56am Irritable bowel syndrome wit h constipation acute November 06, 2024 10:56am Ischemic hepatitis acute October 222024 10:56am PCOS (polycystic ovarian syndrome) acute November 06, 2024 10:56am acute November 06 10:56am Rh negative status during acute November 06, 2024 10:56am Supervision of high-risk acute November 06, 2024 10:56am Adopted acute November 20 8:33am Anxiety and depression acute [place] 2024 8:33am Circumvallate placenta acute [place] 2024 8:33am Endometriosis determined by laparoscopy acute November 20, 2024 8:33am Family history of congenital septal defect acute November 20, 2024 8:33am Edgar's disease acute November 20, 2024 8:33am Irritable bowel syndrome wit h constipation acute November 20, 2024 8:33am Ischemic hepatitis acute October 242024 8:33am PCOS (polycystic ovarian syndrome) acute November 20, 2024 8:33am acute November 20 8:33am Rh negative status during acute November 20, 2024 8:33am Supervision of high-risk acute November 20, 2024 8:33am Abnormal glucose affecting acute December 04 10:04am Adopted acute December 04, 025 10:04am Anxiety and depression acute [place] 2024 10:04am Circumvallate placenta acute [place] 2024 10:04am Endometriosis determined by laparoscopy acute December 04 10:04am Family history of congenital septal defect acute December 04 10:04am Edgar's disease acute [place] [place] 2024 10:04am Irritable bowel syndrome wit h constipation acute December 04 10:04am Ischemic hepatitis acute December 04, 2024 10:04am PCOS (polycystic ovarian syndrome) acute December 04 10:04am acute December 04, 2 025 10:04am Rh negative status during acute December 04 10:04am Supervision of high-risk acute December 04 10:04am [facility] Work Phone: 1([phone]) 142-470604-02-2025 Evaluation note* Diagnosis Onset Date Resolution Status Admit Date Adopted acute July 24 8:49am Anxiety and depression acute Ap 2024 8:49am Endometriosis determined by laparoscopy acute July 24, 2024 8:49am Edgar's disease acute July 24, 2024 8:49am Irritable bowel syndrome wit h constipation acute July 24, 2024 8:49am Ischemic hepatitis acute July 24, 2024 8:49am PCOS (polycystic ovarian syndrome) acute July 24, 2024 8:49am acute July 24 8:49am Rh negative status during acute July 24, 2024 8:49am Supervision of high-risk acute July 24, 2024 8:49am Palpitations resolved July 24, 8:49am Adopted acute August 06 8:46am Anxiety and depression acute Ap ril 2024 8:46am Endometriosis determined by laparoscopy acute August 06, 2024 8:46am 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, 2024 8:46am Irritable bowel syndrome wit h constipation acute August 06, 2024 8:46am Ischemic hepatitis acute August 06, 2024 8:46am PCOS (polycystic ovarian syndrome) acute August 06, 2024 8:46am acute August 06 8:46am Rh negative status during acute August 06, 2024 8:46am Supervision of high-risk acute August 06, 2024 8:46am Palpitations resolved August 06, 2024 8:46am Adopted acute September 03, 2024 9:26am Anxiety and depression acute Ma y 2024 9:26am Endometriosis determined by laparoscopy acute September 03, 2024 9 :26am 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 9:26am Irritable bowel syndrome wit h constipation acute September 03, 2024 9 :26am Ischemic hepatitis acute September 032024 9:26am PCOS (polycystic ovarian syndrome) acute September 03, 2024 9 :26am acute September 03, 2024 9:26am Rh negative status during acute September 03, 2024 9 :26am Supervision of high-risk acute September 03, 2024 9 :26am Palpitations resolved September 03 9:26am Adopted acute September 30, 2024 3:30pm Anxiety and depression acute [place] 2024 3:30pm Circumvallate placenta acute [place] 2024 3:30pm Endometriosis determined by laparoscopy acute September 30, 2024 3 :30pm Family history of congenital septal defect acute September 30, 2024 3 :30pm Edgar's disease acute September 30, 2024 3:30pm Irritable bowel syndrome wit h constipation acute September 30, 2024 3 :30pm Ischemic hepatitis acute September 302024 3:30pm PCOS (polycystic ovarian syndrome) acute September 30, 2024 3 :30pm acute September 30, 2024 3:30pm Rh negative status during acute September 30, 2024 3 :30pm Supervision of high-risk acute September 30, 2024 3 :30pm Palpitations resolved September 30 3:30pm Adopted acute November 06 10:56am Anxiety and depression acute [place] 2024 10:56am Circumvallate placenta acute [place] 2024 10:56am Endometriosis determined by laparoscopy acute November 06, 2024 10:56am Family history of congenital septal defect acute November 06, 2024 10:56am 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, 2024 10:56am Irritable bowel syndrome wit h constipation acute November 06, 2024 10:56am Ischemic hepatitis acute October 222024 10:56am PCOS (polycystic ovarian syndrome) acute November 06, 2024 10:56am acute November 06 10:56am Rh negative status during acute November 06, 2024 10:56am Supervision of high-risk acute November 06, 2024 10:56am Adopted acute November 20 8:33am Anxiety and depression acute [place] 2024 8:33am Circumvallate placenta acute [place] 2024 8:33am Endometriosis determined by laparoscopy acute November 20, 2024 8:33am Family history of congenital septal defect acute November 20, 2024 8:33am Edgar's disease acute November 20, 2024 8:33am Irritable bowel syndrome wit h constipation acute November 20, 2024 8:33am Ischemic hepatitis acute October 242024 8:33am PCOS (polycystic ovarian syndrome) acute November 20, 2024 8:33am acute November 20 8:33am Rh negative status during acute November 20, 2024 8:33am Supervision of high-risk acute November 20, 2024 8:33am [facility] Work Phone: 1([phone]) 658-865403-21-2025 Evaluation note* Diagnosis Onset Date Resolution Status Admit Date Adopted acute July 12 8:47am Anxiety and depression acute [facility] 2024 8:47am Endometriosis determined by laparoscopy acute July 12, 2024 8:47am Edgar's disease acute July 12, 2024 8:47am Irritable bowel syndrome wit h constipation acute July 12, 2024 8:47am Ischemic hepatitis acute July 12, 2024 8:47am PCOS (polycystic ovarian syndrome) acute July 12, 2024 8:47am acute July 12 8:47am Rh negative status during acute July 12, 2024 8:47am Supervision of high-risk acute July 12, 2024 8:47am [facility] Work Phone: 1(715) 199-823803-21-2025 Evaluation note* Diagnosis Onset Date Resolution Status Admit Date Adopted acute July 12 8:47am Anxiety and depression acute [facility] 2024 8:47am Endometriosis determined by laparoscopy acute July 12, 2024 8:47am Edgar's disease acute July 12, 2024 8:47am Irritable bowel syndrome wit h constipation acute July 12, 2024 8:47am Ischemic hepatitis acute July 12, 2024 8:47am PCOS (polycystic ovarian syndrome) acute July 12, 2024 8:47am acute July 12 8:47am Rh negative status during acute July 12, 2024 8:47am Supervision of high-risk acute July 12, 2024 8:47am Adopted acute July 24 8:49am Anxiety and depression acute Ap ril 2024 8:49am Endometriosis determined by laparoscopy acute July 24, 2024 8:49am Edgar's disease acute July 24, 2024 8:49am Irritable bowel syndrome wit h constipation acute July 24, 2024 8:49am Ischemic hepatitis acute July 24, 2024 8:49am Palpitations acute July 24, 8:49am PCOS (polycystic ovarian syndrome) acute July 24, 2024 8:49am acute July 24 8:49am Rh negative status during acute July 24, 2024 8:49am Supervision of high-risk acute July 24, 2024 8:49am [facility] Work Phone: 1(573) 770-537203-21-2025 Evaluation note* Diagnosis Onset Date Resolution Status Admit Date Adopted acute July 12 8:47am Anxiety and depression acute Ma rch 2024 8:47am Endometriosis determined by laparoscopy acute July 12, 2024 8:47am Edgar's disease acute July 12, 2024 8:47am Irritable bowel syndrome wit h constipation acute July 12, 2024 8:47am Ischemic hepatitis acute July 12, 2024 8:47am PCOS (polycystic ovarian syndrome) acute July 12, 2024 8:47am acute July 12 8:47am Rh negative status during acute July 12, 2024 8:47am Supervision of high-risk acute July 12, 2024 8:47am Adopted acute July 24 8:49am Anxiety and depression acute Ap ril 2024 8:49am Endometriosis determined by laparoscopy acute July 24, 2024 8:49am Edgar's disease acute July 24, 2024 8:49am Irritable bowel syndrome wit h constipation acute July 24, 2024 8:49am Ischemic hepatitis acute July 24, 2024 8:49am Palpitations acute July 24, 2 025 8:49am PCOS (polycystic ovarian syndrome) acute July 24, 2024 8:49am acute July 24 8:49am Rh negative status during acute July 24, 2024 8:49am Supervision of high-risk acute July 24, 2024 8:49am Adopted acute August 06 8:46am Anxiety and depression acute Ap ril 2024 8:46am Endometriosis determined by laparoscopy acute August 06, 2024 8:46am 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, 2024 8:46am Irritable bowel syndrome wit h constipation acute August 06, 2024 8:46am Ischemic hepatitis acute August 06, 2024 8:46am Palpitations acute August 06, 2024 8:46am PCOS (polycystic ovarian syndrome) acute August 06, 2024 8:46am acute August 06 8:46am Rh negative status during acute August 06, 2024 8:46am Supervision of high-risk acute August 06, 2024 8:46am Adopted acute September 03, 2024 9:26am Anxiety and depression acute Ma 2024 9:26am Endometriosis determined by laparoscopy acute September 03, 2024 9 :26am 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 9:26am Irritable bowel syndrome wit h constipation acute September 03, 2024 9 :26am Ischemic hepatitis acute September 032024 9:26am Palpitations acute September 03 9:26am PCOS (polycystic ovarian syndrome) acute September 03, 2024 9 :26am acute September 03, 2024 9:26am Rh negative status during acute September 03, 2024 9 :26am Supervision of high-risk acute September 03, 2024 9 :26am [facility] Work Phone: 1(826) 525-835703-21-2025 Evaluation note* Diagnosis Onset Date Resolution Status Admit Date Adopted acute July 12 8:47am Anxiety and depression acute Ma 2024 8:47am Endometriosis determined by laparoscopy acute July 12, 2024 8:47am Edgar's disease acute July 12, 2024 8:47am Irritable bowel syndrome wit h constipation acute July 12, 2024 8:47am Ischemic hepatitis acute July 12, 2024 8:47am PCOS (polycystic ovarian syndrome) acute July 12, 2024 8:47am acute July 12 8:47am Rh negative status during acute July 12, 2024 8:47am Supervision of high-risk acute July 12, 2024 8:47am Adopted acute July 24 8:49am Anxiety and depression acute Ap 2024 8:49am Endometriosis determined by laparoscopy acute July 24, 2024 8:49am Edgar's disease acute July 24, 2024 8:49am Irritable bowel syndrome wit h constipation acute July 24, 2024 8:49am Ischemic hepatitis acute July 24, 2024 8:49am Palpitations acute July 24, 8:49am PCOS (polycystic ovarian syndrome) acute July 24, 2024 8:49am acute July 24 8:49am Rh negative status during acute July 24, 2024 8:49am Supervision of high-risk acute July 24, 2024 8:49am Adopted acute August 06 8:46am Anxiety and depression acute Ap 2024 8:46am Endometriosis determined by laparoscopy acute August 06, 2024 8:46am 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, 2024 8:46am Irritable bowel syndrome wit h constipation acute August 06, 2024 8:46am Ischemic hepatitis acute August 06, 2024 8:46am Palpitations acute August 06, 2024 8:46am PCOS (polycystic ovarian syndrome) acute August 06, 2024 8:46am acute August 06 8:46am Rh negative status during acute August 06, 2024 8:46am Supervision of high-risk acute August 06, 2024 8:46am Adopted acute September 03, 2024 9:26am Anxiety and depression acute Ma 2024 9:26am Endometriosis determined by laparoscopy acute September 03, 2024 9 :26am 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 9:26am Irritable bowel syndrome wit h constipation acute September 03, 2024 9 :26am Ischemic hepatitis acute September 032024 9:26am Palpitations acute September 03 9:26am PCOS (polycystic ovarian syndrome) acute September 03, 2024 9 :26am acute September 03, 2024 9:26am Rh negative status during acute September 03, 2024 9 :26am Supervision of high-risk acute September 03, 2024 9 :26am Adopted acute September 30, 2024 3:30pm Anxiety and depression acute Ju ne 2024 3:30pm Circumvallate placenta acute Ju ne 2024 3:30pm Endometriosis determined by laparoscopy acute September 30, 2024 3 :30pm Family history of congenital septal defect acute September 30, 2024 3 :30pm Edgar's disease acute September 30, 2024 3:30pm Irritable bowel syndrome wit h constipation acute September 30, 2024 3 :30pm Ischemic hepatitis acute September 302024 3:30pm Palpitations acute September 30 3:30pm PCOS (polycystic ovarian syndrome) acute September 30, 2024 3 :30pm acute September 30, 2024 3:30pm Rh negative status during acute September 30, 2024 3 :30pm Supervision of high-risk acute September 30, 2024 3 :30pm [facility] Work Phone: 1(295) 262-329203-21-2025 Evaluation note* Diagnosis Onset Date Resolution Status Admit Date Adopted acute July 12 8:47am Anxiety and depression acute [facility]2024 8:47am Endometriosis determined by laparoscopy acute July 12, 2024 8:47am Edgar's disease acute July 12, 2024 8:47am Irritable bowel syndrome wit h constipation acute July 12, 2024 8:47am Ischemic hepatitis acute July 12, 2024 8:47am PCOS (polycystic ovarian syndrome) acute July 12, 2024 8:47am acute July 12 8:47am Rh negative status during acute July 12, 2024 8:47am Supervision of high-risk acute July 12, 2024 8:47am Adopted acute July 24 8:49am Anxiety and depression acute 2024 8:49am Endometriosis determined by laparoscopy acute July 24, 2024 8:49am Edgar's disease acute July 24, 2024 8:49am Irritable bowel syndrome wit h constipation acute July 24, 2024 8:49am Ischemic hepatitis acute July 24, 2024 8:49am PCOS (polycystic ovarian syndrome) acute July 24, 2024 8:49am acute July 24 8:49am Rh negative status during acute July 24, 2024 8:49am Supervision of high-risk acute July 24, 2024 8:49am Palpitations resolved July 24 8:49am Adopted acute August 06 8:46am Anxiety and depression acute Ap ril 2024 8:46am Endometriosis determined by laparoscopy acute August 06, 2024 8:46am 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, 2024 8:46am Irritable bowel syndrome wit h constipation acute August 06, 2024 8:46am Ischemic hepatitis acute August 06, 2024 8:46am PCOS (polycystic ovarian syndrome) acute August 06, 2024 8:46am acute August 06 8:46am Rh negative status during acute August 06, 2024 8:46am Supervision of high-risk acute August 06, 2024 8:46am Palpitations resolved August 06, 2024 8:46am Adopted acute September 03, 2024 9:26am Anxiety and depression acute Ma 2024 9:26am Endometriosis determined by laparoscopy acute September 03, 2024 9 :26am 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 9:26am Irritable bowel syndrome wit h constipation acute September 03, 2024 9 :26am Ischemic hepatitis acute September 032024 9:26am PCOS (polycystic ovarian syndrome) acute September 03, 2024 9 :26am acute September 03, 2024 9:26am Rh negative status during acute September 03, 2024 9 :26am Supervision of high-risk acute September 03, 2024 9 :26am Palpitations resolved September 03 9:26am Adopted acute September 30, 2024 3:30pm Anxiety and depression acute Ju 2024 3:30pm Circumvallate placenta acute Ju ne 2024 3:30pm Endometriosis determined by laparoscopy acute September 30, 2024 3 :30pm Family history of congenital septal defect acute September 30, 2024 3 :30pm Edgar's disease acute September 30, 2024 3:30pm Irritable bowel syndrome wit h constipation acute September 30, 2024 3 :30pm Ischemic hepatitis acute Lydia 9 th, 2025 3:30pm PCOS (polycystic ovarian syndrome) acute September 30, 2024 3 :30pm acute September 30, 2024 3:30pm Rh negative status during acute September 30, 2024 3 :30pm Supervision of high-risk acute September 30, 2024 3 :30pm Palpitations resolved September 30 3:30pm Adopted acute November 06 10:56am Anxiety and depression acute Ju ly 2024 10:56am Circumvallate placenta acute Ju ly 2024 10:56am Endometriosis determined by laparoscopy acute November 06, 2024 10:56am Family history of congenital septal defect acute November 06, 2024 10:56am 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 Author Type: Nurse Practitioner Type: Progress Notes Filed: 07/04/2024 14:50 Note Text: VIRTUAL VISIT PROGRESS NOTE This is a virtual visit using [employer] Zoom Video Visit. It required patient-provider interaction for the medical decision making as documented below. I have communicated my name and active licensure. The patient's identity and physical location were verified at the time of this visit. Either the patient or their legal signs sales representative has been informed of the risks and benefits of -- and alternatives to -- treatment through a remote evaluation and consents to proceed with the evaluation remotely. Pattie Balderas is a 28 year old female seen for medication follow up. Patient has been slowly weaning off her prozac and is currently on 20mg daily. Patient recently found she is approx 8 weeks . Has appt in 2 weeks with [place] [employer] [employer]. HISTORY REVIEWED (electronic chart updated): PAST MEDICAL HISTORY Diagnosis Date Depression Endometriosis Generalized anxiety disorder IBS (irritable bowel syndrome) Insulin resistance Ischemic hepatitis Ovarian cyst PCOS (polycystic ovarian syndrome) PAST SURGICAL HISTORY Procedure Laterality Date COLONOSCOPY SCREENING L'SCOPE DX W/WO BRUSHINGS/WASHINGS 04/2021 REVISE MEDIAN N/CARPAL TUNNEL SURG Left 06/2011 FAMILY HISTORY Adopted: Yes Social History Tobacco Use Smoking status: Never Smokeless tobacco: Never Vaping Use Vaping status: Never Used Substance Use Topics Alcohol use: Yes Comment: once a year Drug use: Never Current Outpatient Medications Medication Sig FLUoxetine (PROZAC) 20 mg capsule TAKE 1 CAPSULE BY MOUTH EVERY DAY FLUoxetine (PROZAC) 10 mg capsule TAKE 1 CAPSULE BY MOUTH EVERY DAY busPIRone (BUSPAR) 5 mg tablet Take 1 tablet by mouth three times a day. cholecalciferol (VITAMIN D-3) 5,000 unit tab Take 5,000 Units by mouth once daily. MAGNESIUM CITRATE ORAL Take 150 mg by mouth once daily. docosahexaenoic acid/epa (FISH OIL ORAL) Take 700 mg by mouth once daily. Cetirizine (ZYRTEC) 10 mg cap Take 1 capsule by mouth once daily. No current facility-administered medications for this visit. ALLERGIES Allergen Reactions Tea Tree Hives REVIEW OF SYSTEMS: SEE HPI PHYSICAL EXAMINATION: VIDEO EXAM: (if completed, performed via video enabled technology) GENERAL: alert and appropriate, in no distress, well-hydrated, well nourished, and happy, smiling, interactive ASSESSMENT/PLAN: 1. Anxiety with depression - ICD9: 300.4, ICD10: F41.8 -Continue current medication regimen. I spent a total of 13 minutes on the date of the service which included preparing to see the patient, [id number] patient care, completing clinical documentation, obtaining and/or reviewing separately obtained history, performing a medically appropriate examination, counseling and educating the patient/family/caregiver, ordering medications, tests, or procedures, and communicating results to the patient/family/caregiver Eliud Peñaloza APRN.[facility]03-13-2025 History of Present illness Narrative* Eliud Peñaloza APRN.[facility] - 07/04/2024 2:37 PM EDT VIRTUAL VISIT PROGRESS NOTE This is a virtual visit using [employer] Video Visit. It required patient- provider interaction for the medical decision making as documented below. I have communicated my name and active licensure. The patient's identity and physical location wereverified at the time of this visit. Either the patient or their legal signs sales representative has been informed of the risks and benefits of -- and alternatives to -- treatment through a remote evaluation andconsents to proceed with the evaluation remotely. Pattie Balderas is a 28 year old female seen for medication follow up. Patient has been slowly weaning off her prozac and is currently on 20mg daily. Patient recently found she is approx 8 weeks . Has appt in 2 weeks with [place] [employer] [employer] [facility]. HISTORY REVIEWED (electronic chart updated): PAST MEDICAL HISTORY Diagnosis Date Depression Endometriosis Generalized anxiety disorder IBS (irritable bowel syndrome) Insulin resistance Ischemic hepatitis Ovarian cyst PCOS (polycystic ovarian syndrome) PAST SURGICAL HISTORY Procedure Laterality Date COLONOSCOPY SCREENING L'SCOPE DX W/WO BRUSHINGS/WASHINGS 04/2021 REVISE MEDIAN N/CARPAL TUNNEL SURG Left 06/2011 FAMILY HISTORY Adopted: Yes Social History Tobacco Use Smoking status: Never Smokeless tobacco: Never Vaping Use Vaping status: Never Used Substance Use Topics Alcohol use: Yes Comment: once a year Drug use: Never Current Outpatient Medications Medication Sig FLUoxetine (PROZAC) 20 mg capsule TAKE 1 CAPSULE BY MOUTH EVERY DAY FLUoxetine (PROZAC) 10 mg capsule TAKE 1 CAPSULE BY MOUTH EVERY DAY busPIRone (BUSPAR) 5 mg tablet Take 1 tablet by mouth three times a day. cholecalciferol (VITAMIN D-3) 5,000 unit tab Take 5,000 Units by mouth once daily. MAGNESIUM CITRATE ORAL Take 150 mg by mouth once daily. docosahexaenoic acid/epa (FISH OIL ORAL) Take 700 mg by mouth once daily. Cetirizine (ZYRTEC) 10 mg cap Take 1 capsule by mouth once daily. No current facility-administered medications for this visit. ALLERGIES Allergen Reactions Tea Tree Hives REVIEW OF SYSTEMS: SEE HPI PHYSICAL EXAMINATION: VIDEO EXAM: (if completed, performed via video enabled technology) GENERAL: alert and appropriate, in no distress, well-hydrated, well nourished, and happy, smiling, interactive ASSESSMENT/PLAN: 1. Anxiety with depression - ICD9: 300.4, ICD10: F41.8 -Continue current medication regimen. I spent a total of 13 minutes on the date of the service which included preparing to see the patient, [id number] patient care, completing clinical documentation, obtaining and/or reviewing separately obtained history, performing a medically appropriate examination, counseling and educating the pat ient/family/caregiver, ordering medications, tests, or procedures, and communicating results to thepatient/family/caregiver Eliud Peñaloza APRN.[facility] NoteHNO ID: [id number] Author: ELIUD PEÑALOZA APRN.CNP Service: ? Author Type: Nurse Practitioner Type: Progress Notes Filed: 05/30/2024 15:29 Note Text: Chief Complaint Patient presents with: Physical HPI Pattie Balderas is a 28 year old female who presents here today for Above Complaints.. Patient presents today for her annual physical. Pt has been weaning down on her prozac over the past visit now on alternating 20mg and 10mg. Pt states she has been having more depressive symptoms feeling more cabral. She doesn't think it is effecting her sleep at this time but is having more vivid dreams, but wishes to stay on this dosage at this time. Patient has no other complaints for her health at this time. Patient denies fever, chills, nausea, vomiting, chest pain, SOB, headaches. Past medical history, appointments, medications, allergies reviewed. Previous Medical History PAST MEDICAL HISTORY Diagnosis Date Depression Endometriosis Generalized anxiety disorder IBS (irritable bowel syndrome) Insulin resistance Ischemic hepatitis Ovarian cyst PCOS (polycystic ovarian syndrome) Previous Surgical History PAST SURGICAL HISTORY Procedure Laterality Date COLONOSCOPY SCREENING L'SCOPE DX W/WO BRUSHINGS/WASHINGS 04/2021 REVISE MEDIAN N/CARPAL TUNNEL SURG Left 06/2011 Family History FAMILY HISTORY Adopted: Yes Patient Allergies ALLERGIES Allergen Reactions Tea Tree Hives Current Medications Current Outpatient Medications on File Prior to Visit Medication Sig FLUoxetine (PROZAC) 20 mg capsule TAKE 1 CAPSULE BY MOUTH EVERY DAY FLUoxetine (PROZAC) 10 mg capsule TAKE 1 CAPSULE BY MOUTH EVERY DAY busPIRone (BUSPAR) 5 mg tablet Take 1 tablet by mouth three times a day. cholecalciferol (VITAMIN D-3) 5,000 unit tab Take 5,000 Units by mouth once daily. MAGNESIUM CITRATE ORAL Take 150 mg by mouth once daily. docosahexaenoic acid/epa (FISH OIL ORAL) Take 700 mg by mouth once daily. Cetirizine (ZYRTEC) 10 mg cap Take 1 capsule by mouth once daily. No current facility-administered medications on file prior to visit. Social History Social History Tobacco Use Smoking status: Never Smokeless tobacco: Never Vaping Use Vaping status: Never Used Substance Use Topics Alcohol use: Yes Comment: once a year Drug use: Never Review of Symptoms REVIEW OF SYSTEMS GENERAL: No weight loss, malaise or fevers RESPIRATORY: Negative for cough, hemoptysis, wheezing, COPD, dyspnea or shortness of breath CARDIOVASCULAR: Negative for chest pain, leg swelling, hypertension, CHF or palpitations EXAM: BP 117/73 Pulse 99 Wt 67.6 kg (149 lb) LMP 06/26/2023 BMI 26.39 kg/m? General Appearance: Well appearing, alert, in no acute distress, well-hydrated, well nourished.. Neck: Supple, no adenopathy; thyroid symmetric, normal size, no bruits. Lungs: Lungs clear to auscultation. No wheezing, rhonchi, rales.. Heart: RRR without murmur, gallop, or rubs. No ectopy. Abdomen: Normal abdominal exam, Abdomen soft, non-tender. Bowel sounds normal. No masses, organomegaly. Peripheral Pulses: Normal. Health Maintenance List Depression Screening Never done Anxiety Screening Never done Hepatitis C Screening Never done HIV Screening Never done Influenza Vaccine(1) due on 12/24/2023 Covid-19 Vaccine( season) due on 12/24/2023 Cervical Cancer Screening due on 03/21/2026 DTaP,Tdap,Td Vaccine(9 - Td or Tdap) due on 01/19/2031 Hepatitis B Vaccine Completed HPV Vaccine Completed Data reviewed Latest Ref Rng 05/28/2024 WBC 3.70 - 11.00 k/uL 7.86 RBC 3.90 - 5.20 m/uL 4.68 Hemoglobin 11.5 - 15.5 g/dL 14.2 Hematocrit 36.0 - 46.0 % 42.5 MCV 80.0 - 100.0 fL 90.8 MCH 26.0 - 34.0 pg 30.3 MCHC 30.5 - 36.0 g/dL 33.4 RDW-CV 11.5 - 15.0 % 12.6 Platelet Count 150 - 400 k/uL 192 MPV 9.0 - 12.7 fL 11.4 Neut% % 63.0 Abs Neut (ANC) 1.45 - 7.50 k/uL 4.94 Lymph% % 25.4 Abs Lymph 1.00 - 4.00 k/uL 2.00 Corson% % 6.7 Abs Corson <0.87 k/uL 0.53 Eosin% % 3.7 Abs Eosin <0.46 k/uL 0.29 Baso% % 0.6 Abs Baso <0.11 k/uL 0.05 Immature Gran % % 0.6 IMMATURE GRANS (ABS) <0.10 k/uL 0.05 NRBC /100 WBC 0.0 Absolute nRBC <0.01 k/uL <0.01 DTYPE Auto Protein, Total 6.3 - 8.0 g/dL 7.0 Albumin 3.9 - 4.9 g/dL 4.5 Calcium 8.5 - 10.2 mg/dL 9.6 Bilirubin, Total 0.2 - 1.3 mg/dL 0.3 Alkaline Phosphatase 34 - 123 U/L 57 AST 13 - 35 U/L 20 ALT 7 - 38 U/L 16 Glucose 74 - 99 mg/dL 82 BUN 7 - 21 mg/dL 13 Creatinine 0.58 - 0.96 mg/dL 0.75 Sodium 136 - 144 mmol/L 138 Potassium 3.7 - 5.1 mmol/L 3.9 Chloride 98 - 107 mmol/L 103 CO2 22 - 30 mmol/L 24 Anion Gap 8 - 15 mmol/L 11 eGFR >=60 mL/min/1.73m? 111 Total Cholesterol, Nonfasting <200 mg/dL 161 Triglycerides, Nonfasting <150 mg/dL 169 (H) HDL Cholesterol, Nonfasting >39 mg/dL 47 LDL Cholesterol, Nonfasting <100 mg/dL 80 Non HDL Cholesterol, Nonfasting <130 mg/dL 114 VLDL Cholesterol, Nonfast (more content not included)...[facility]02-06-2025 History of Present illness Narrative* Eliud Peñaloza APRN.COLD ROLL CATCHER - 05/30/2024 2:16 PM EST Chief Complaint Patient presents with: Physical HPI Pattie Balderas is a 28 year old female who presents here today for Above Complaints.. Patient presents today for her annual physical. Pt has been weaning down on her prozac over the past visit now on alternating 20mg and 10mg. Pt states she has been having more depressive symptoms feeling more cabral. She doesn't think it is effecting her sleep at this time but is having more vivid dreams, but wishes to stay on this dosage at this time. Patient has no other complaints for her health at this time. Patient denies fever, chills, nausea, vomiting, chest pain, SOB, headaches. Past medical history, appointments, medications, allergies reviewed. Previous Medical History PAST MEDICAL HISTORY Diagnosis Date Depression Endometriosis Generalized anxiety disorder IBS (irritable bowel syndrome) Insulin resistance Ischemic hepatitis Ovarian cyst PCOS (polycystic ovarian syndrome) Previous Surgical History PAST SURGICAL HISTORY Procedure Laterality Date COLONOSCOPY SCREENING L'SCOPE DX W/WO BRUSHINGS/WASHINGS 04/2021 REVISE MEDIAN N/CARPAL TUNNEL SURG Left 06/2011 Family History FAMILY HISTORY Adopted: Yes Patient Allergies ALLERGIES Allergen Reactions Tea Tree Hives Current Medications Current Outpatient Medications on File Prior to Visit Medication Sig FLUoxetine (PROZAC) 20 mg capsule TAKE 1 CAPSULE BY MOUTH EVERY DAY FLUoxetine (PROZAC) 10 mg capsule TAKE 1 CAPSULE BY MOUTH EVERY DAY busPIRone (BUSPAR) 5 mg tablet Take 1 tablet by mouth three times a day. cholecalciferol (VITAMIN D-3) 5,000 unit tab Take 5,000 Units by mouth once daily. MAGNESIUM CITRATE ORAL Take 150 mg by mouth once daily. docosahexaenoic acid/epa (FISH OIL ORAL) Take 700 mg by mouth once daily. Cetirizine (ZYRTEC) 10 mg cap Take 1 capsule by mouth once daily. No current facility-administered medications on file prior to visit. Social History Social History Tobacco Use Smoking status: Never Smokeless tobacco: Never Vaping Use Vaping status: Never Used Substance Use Topics Alcohol use: Yes Comment: once a year Drug use: Never Review of Symptoms REVIEW OF SYSTEMS GENERAL: No weight loss, malaise or fevers RESPIRATORY: Negative for cough, hemoptysis, wheezing, COPD, dyspnea or shortness of breath CARDIOVASCULAR: Negative for chest pain, leg swelling, hypertension, CHF or palpitations EXAM: BP 117/73 Pulse 99 Wt 67.6 kg (149 lb) LMP 06/26/2023 BMI 26.39 kg/m General Appearance: Well appearing, alert, in no acute distress, well-hydrated, well nourished.. Neck: Supple, no adenopathy; thyroid symmetric, normal size, no bruits. Lungs: Lungs clear to auscultation. No wheezing, rhonchi, rales.. Heart: RRR without murmur, gallop, or rubs. No ectopy. Abdomen: Normal abdominal exam, Abdomen soft, non-tender. Bowel sounds normal. No masses, organomegaly. Peripheral Pulses: Normal. Health Maintenance List Depression Screening Never done Anxiety Screening Never done Hepatitis C Screening Never done HIV Screening Never done Influenza Vaccine(1) due on 12/24/2023 Covid-19 Vaccine(3 - 2023- season) due on 12/24/2023 Cervical Cancer Screening due on 03/21/2026 DTaP,Tdap,Td Vaccine(9 - Td or Tdap) due on 01/19/2031 Hepatitis B Vaccine Completed HPV Vaccine Completed Data reviewed Latest Ref Rng 05/28/2024 WBC 3.70 - 11.00 k/uL 7.86 RBC 3.90 - 5.20 m/uL 4.68 Hemoglobin 11.5 - 15.5 g/dL 14.2 Hematocrit 36.0 - 46.0 % 42.5 MCV 80.0 - 100.0 fL 90.8 MCH 26.0 - 34.0 pg 30.3 MCHC 30.5 - 36.0 g/dL 33.4 RDW-CV 11.5 - 15.0 % 12.6 Platelet Count 150 - 400 k/uL 192 MPV 9.0 - 12.7 fL 11.4 Neut% % 63.0 Abs Neut (ANC) 1.45 - 7.50 k/uL 4.94 Lymph% % 25.4 Abs Lymph 1.00 - 4.00 k/uL 2.00 Corson% % 6.7 Abs Corson <0.87 k/uL 0.53 Eosin% % 3.7 Abs Eosin <0.46 k/uL 0.29 Baso% % 0.6 Abs Baso <0.11 k/uL 0.05 Immature Gran % % 0.6 IMMATURE GRANS (ABS) <0.10 k/uL 0.05 NRBC /100 WBC 0.0 Absolute nRBC <0.01 k/uL <0.01 DTYPE Auto Protein, Total 6.3 - 8.0 g/dL 7.0 Albumin 3.9 - 4.9 g/dL 4.5 Calcium 8.5 - 10.2 mg/dL 9.6 Bilirubin, Total 0.2 - 1.3 mg/dL 0.3 Alkaline Phosphatase 34 - 123 U/L 57 AST 13 - 35 U/L 20 ALT 7 - 38 U/L 16 Glucose 74 - 99 mg/dL 82 BUN 7 - 21 mg/dL 13 Creatinine 0.58 - 0.96 mg/dL 0.75 Sodium 136 - 144 mmol/L 138 Potassium 3.7 - 5.1 mmol/L 3.9 Chloride 98 - 107 mmol/L 103 CO2 22 - 30 mmol/L 24 Anion Gap 8 - 15 mmol/L 11 eGFR >=60 mL/min/1.73m 111 Total Cholesterol, Nonfasting <200 mg/dL 161 Triglycerides, Nonfasting <150 mg/dL 169 (H) HDL Cholesterol, Nonfasting >39 mg/dL 47 LDL Cholesterol, Nonfasting <100 mg/dL 80 Non HDL Cholesterol, Nonfasting <130 mg/dL 114 VLDL Cholesterol, Nonfasting <30 mg/dL 34 (H) Total Chol/HDL Ratio, Nonfasting <5.10 mg/dL 3.43 LDL/HDL Ratio, Nonfasting <2.54 mg/dL 1.70 Iron 41 - 186 ug/dL 72 TIBC 232 - 386 ug/dL 371 Transferrin Saturation 15.0 - 57.0 % 19.4 Hemoglobin A1C 4.3 - 5.6 % 4.4 Estimated Average Glucose mg/dL 80 Ferritin 14.7 - 205.1 ng/mL 45.4 TSH 0.270 - 4.200 mIU/L 3.070 T3 79 - 165 ng/dL 86 Free T4 0.9 - 1.7 ng/dL 0.9 THYROID PEROXIDASE ANTIBODY <5.6 IU/mL 10.1 (H) Legend: (H) High PHQ-9 More data exists 01/10/2024 02/28/2024 04/25/2024 05/28/2024 05/30/2024 PHQ-9 Scores Little interest or pleasure in doing things: Not at all Not at all Several days Several days Not atall Feeling down, depressed, or hopeless: Not at all Several days Several days Several days More than half the days Trouble falling or staying asleep, or sleeping too much Not at all Several days Not at all Several days Several days Feeling tired or having little energy Not at all Not at all Several days Several days Several days Poor appetite or overeating Not at all Not at all Not at all Not at all Not at all Feeling bad about yourself - or that you are a failure or have let yourself or your family down Several days More than half the days Not at all More than half the days More than half the days Trouble concentrating on things, such as reading the newspaper or watching television Not at all Not at all Not at all Not at all Not at all Moving or speaking so slowly that other people could have noticed. Or the opposite - being so fidgety or restless that you have been moving around a lot more than usual Not at all Not at all Not at all Not at all Not at all Thoughts that you would be better off , or of hurting yourself in some way Not at all Not at all Not at all Not at all Not at all PHQ-9 Score 1 4 3 6 6 6 Details Multiple values from one day are sorted in reverse-chronological order ADÁN-7 06/18/2023 05/30/2024 ADÁN-7 All Questions Feeling nervous, anxious, or on edge Nearly Everyday Several days Not being able to stop or control worrying Nearly Everyday Several days Worrying too much about different things Nearly Everyday Several days Trouble relaxing Several days Several days Being so restless that it is hard to sit still Several days Not at all Becoming easily annoyed or irritable More than half the days Several days Feeling afraid, as if something awful might happen Nearly Everyday Several days ADÁN-7 Score 16 6 Details ASSESSMENT/PLAN: 1. Wellness examination - ICD9: V70.0, ICD10: Z00.00 (primary diagnosis) - Counseled on healthy diet and regular exercise - Discussed need and benefit for weight loss. BMI 26.39 kg/(m^2) - Follow up for annual exam in one year 2. Encounter for screening examination for other mental health and behavioral disorders - ICD9: V79.8, ICD10: Z13.39 -ADÁN and PHQ sttable 3. 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 Iron deficiency anemia, unspecified iron deficiency anemia type - ICD9: 280.9, ICD10: D50.9 -Stable, continue current supplementation I have personally seen and examined the patient and performed the medical- decision making components. I have reviewed the Advanced Practice Registered Nurse ([employer]) student's documentation and verified the findings in the note as written. Any additions or changes are noted in bold/italics. Eliud Peñaloza APRN.FABRIZIO documented [facility] Telephone encounter Note * Telephone Encounter - Destiny Pierson LPN - 05/20/2024 10:34 AM EST Prescription Refill Information The patient has been identified by name and date of : Yes Caregiver verified no other encounters exist for this prescription request: Yes Caregiver confirmed with patient/requestor that no other refills are due, in the near future, with this provider at this time: Yes The last office visit in the department: 04/26/2024 Does the patient have a future office visit with this provider/department: Yes Requested Prescriptions Pending Prescriptions Disp Refills FLUoxetine (PROZAC) 20 mg capsule [Pharmacy Med Name: FLUOXETINE HCL 20 MG CAPSULE] 90 capsule 1 Sig: TAKE 1 CAPSULE BY MOUTH EVERY DAY FLUoxetine (PROZAC) 10 mg capsule [Pharmacy Med Name: FLUOXETINE HCL 10 MG CAPSULE] 90 capsule 1 Sig: TAKE 1 CAPSULE BY MOUTH EVERY DAY Destiny Pierson LPN May 20, 2024 10:35 AM [facility]01-27[facility] Miscellaneous Notes* Telephone Encounter - Destiny Pierson LPN - 05/20/2024 10:34 AM EST Prescription Refill Information The patient has been identified by name and date of : Yes Caregiver verified no other encounters exist for this prescription request: Yes Caregiver confirmed with patient/requestor that no other refills are due, in the near future, with this provider at this time: Yes The last office visit in the department: 04/26/2024 Does the patient have a future office visit with this provider/department: Yes Requested Prescriptions Pending Prescriptions Disp Refills FLUoxetine (PROZAC) 20 mg capsule [Pharmacy Med Name: FLUOXETINE HCL 20 MG CAPSULE] 90 capsule 1 Sig: TAKE 1 CAPSULE BY MOUTH EVERY DAY FLUoxetine (PROZAC) 10 mg capsule [Pharmacy Med Name: FLUOXETINE HCL 10 MG CAPSULE] 90 capsule 1 Sig: TAKE 1 CAPSULE BY MOUTH EVERY DAY Destiny Pierson LPN May 20, 2024 10:35 AM documented in this encounterMary[facility]01-03-2025 NoteHNO ID: [id number] Author: ELIUD PEÑALOZA APRN.C[employer] C[employer]ER Service: ? Author Type: Nurse Practitioner Type: Progress Notes Filed: 04/26/2024 13:40 Note Text: VIRTUAL VISIT PROGRESS NOTE This is a virtual visit using [employer] Video Visit. It required patient-provider interaction for the medical decision making as documented below. I have communicated my name and active licensure. The patient's identity and physical location were verified at the time of this visit. Either the patient or their legal signs sales representative has been informed of the risks and benefits of -- and alternatives to -- treatment through a remote evaluation and consents to proceed with the evaluation remotely. Pattie Balderas is a 28 year old female seen for medication follow up. Patient has been weaning off her prozac. Currently on buspar 5mg TID and prozac 20mg daily. Patient reports no significant change in her depression or anxiety levels. . HISTORY REVIEWED (electronic chart updated): PAST MEDICAL HISTORY Diagnosis Date Depression Endometriosis Generalized anxiety disorder IBS (irritable bowel syndrome) Insulin resistance Ischemic hepatitis Ovarian cyst PCOS (polycystic ovarian syndrome) PAST SURGICAL HISTORY Procedure Laterality Date COLONOSCOPY SCREENING L'SCOPE DX W/WO BRUSHINGS/WASHINGS 04/2021 REVISE MEDIAN N/CARPAL TUNNEL SURG Left 06/2011 FAMILY HISTORY Adopted: Yes Social History Tobacco Use Smoking status: Never Smokeless tobacco: Never Vaping Use Vaping status: Never Used Substance Use Topics Alcohol use: Yes Comment: once a year Drug use: Never Current Outpatient Medications Medication Sig FLUoxetine (PROZAC) 20 mg capsule Take 1 capsule by mouth once daily. FLUoxetine (PROZAC) 10 mg capsule Take one capsule every other day with 10mg for total of 30mg. busPIRone (BUSPAR) 5 mg tablet Take 1 tablet by mouth two times a day. fluticasone (FLONASE ALLERGY RELIEF) 50 mcg/actuation nasal spray Flonase Allergy Relief qDay, 0 Refill(s) Start Date: 01/19/21 Status: Ordered ferrous sulfate (IRON) 325 mg (65 mg iron) tablet Take 325 mg by mouth. cholecalciferol (VITAMIN D-3) 5,000 unit tab Take 5,000 Units by mouth once daily. MAGNESIUM CITRATE ORAL Take 150 mg by mouth once daily. docosahexaenoic acid/epa (FISH OIL ORAL) Take 700 mg by mouth once daily. Cetirizine (ZYRTEC) 10 mg cap Take 1 capsule by mouth once daily. No current facility-administered medications for this visit. ALLERGIES Allergen Reactions Tea Tree Hives REVIEW OF SYSTEMS: SEE HPI PHYSICAL EXAMINATION: VIDEO EXAM: (if completed, performed via video enabled technology) GENERAL: alert and appropriate, in no distress, well-hydrated, well nourished, and happy, smiling, interactive ASSESSMENT/PLAN: 1. Anxiety with depression - ICD9: 300.4, ICD10: F41.8 - BUSPIRONE 5 MG TABLET - FLUOXETINE 10 MG CAPSULE - FLUOXETINE 20 MG CAPSULE Take 20 mg and 10 mg prozac on alternating days for the next 30 days. Follow up in office in 4 weeks for physical and med check. I spent a total of 14 minutes on the date of the service which included preparing to see the patient, [id number] patient care, completing clinical documentation, obtaining and/or reviewing separately obtained history, performing a medically appropriate examination, counseling and educating the patient/family/caregiver, ordering medications, tests, or procedures, and communicating results to the patient/family/caregiver Eliud Peñaloza APRN.[facility]01-03-2025 History of Present illness Narrative* Eliud Peñaloza APRN.FABRIZIO - 04/26/2024 1:28 PM EST VIRTUAL VISIT PROGRESS NOTE This is a virtual visit using Billing[employer] Video Visit. It required patient- provider interaction for the medical decision making as documented below. I have communicated my name and active licensure. The patient's identity and physical location wereverified at the time of this visit. Either the patient or their legal signs sales representative has been informed of the risks and benefits of -- and alternatives to -- treatment through a remote evaluation andconsents to proceed with the evaluation remotely. Pattie Balderas is a 28 year old female seen for medication follow up. Patient has been weaning off her prozac. Currently on buspar 5mg TID and prozac 20mg daily. Patient reports no significant change in her depression or anxiety levels. . HISTORY REVIEWED (electronic chart updated): PAST MEDICAL HISTORY Diagnosis Date Depression Endometriosis Generalized anxiety disorder IBS (irritable bowel syndrome) Insulin resistance Ischemic hepatitis Ovarian cyst PCOS (polycystic ovarian syndrome) PAST SURGICAL HISTORY Procedure Laterality Date COLONOSCOPY SCREENING L'SCOPE DX W/WO BRUSHINGS/WASHINGS 04/2021 REVISE MEDIAN N/CARPAL TUNNEL SURG Left 06/2011 FAMILY HISTORY Adopted: Yes Social History Tobacco Use Smoking status: Never Smokeless tobacco: Never Vaping Use Vaping status: Never Used Substance Use Topics Alcohol use: Yes Comment: once a year Drug use: Never Current Outpatient Medications Medication Sig FLUoxetine (PROZAC) 20 mg capsule Take 1 capsule by mouth once daily. FLUoxetine (PROZAC) 10 mg capsule Take one capsule every other day with 10mg for total of 30mg. busPIRone (BUSPAR) 5 mg tablet Take 1 tablet by mouth two times a day. fluticasone (FLONASE ALLERGY RELIEF) 50 mcg/actuation nasal spray Flonase Allergy Relief qDay, 0 Refill(s) Start Date: 01/19/21 Status: Ordered ferrous sulfate (IRON) 325 mg (65 mg iron) tablet Take 325 mg by mouth. cholecalciferol (VITAMIN D-3) 5,000 unit tab Take 5,000 Units by mouth once daily. MAGNESIUM CITRATE ORAL Take 150 mg by mouth once daily. docosahexaenoic acid/epa (FISH OIL ORAL) Take 700 mg by mouth once daily. Cetirizine (ZYRTEC) 10 mg cap Take 1 capsule by mouth once daily. No current facility-administered medications for this visit. ALLERGIES Allergen Reactions Tea Tree Hives REVIEW OF SYSTEMS: SEE HPI PHYSICAL EXAMINATION: VIDEO EXAM: (if completed, performed via video enabled technology) GENERAL: alert and appropriate, in no distress, well-hydrated, well nourished, and happy, smiling, interactive ASSESSMENT/PLAN: 1. Anxiety with depression - ICD9: 300.4, ICD10: F41.8 - BUSPIRONE 5 MG TABLET - FLUOXETINE 10 MG CAPSULE - FLUOXETINE 20 MG CAPSULE Take 20 mg and 10 mg prozac on alternating days for the next 30 days. Follow up in office in 4 weeks for physical and med check. I spent a total of 14 minutes on the date of the service which included preparing to see the patient, [id number] patient care, completing clinical documentation, obtaining and/or reviewing separately obtained history, performing a medically appropriate examination, counseling and educating the pat ient/family/caregiver, ordering medications, tests, or procedures, and communicating results to thepatient/family/caregiver Eliud Peñaloza APRN.C[employer] ROLL CATCHER documented in [facility] encounter[facility]12-[facility]24 NoteHNO ID: [id number] Author: ELIUD PEÑALOZA APRN.FABRIZIO Service: ? Author Type: Nurse Practitioner Type: Progress Notes Filed: 03/26/2024 12:08 Note Text: VIRTUAL VISIT PROGRESS NOTE This is a virtual visit using [employer] Video Visit. It required patient-provider interaction for the medical decision making as documented below. I have communicated my name and active licensure. The patient's identity and physical location were verified at the time of this visit. Either the patient or their legal signs sales representative has been informed of the risks and benefits of -- and alternatives to -- treatment through a remote evaluation and consents to proceed with the evaluation remotely. Pattie Balderas is a 28 year old female seen for Medication follow up. Patient currently on 30mg and 20mg prozac every other day. Patient buspar increased from twice daily to three times daily. Patient reports she has been doing well and her anxiety is much more controlled and she would like to decrease her prozac. HISTORY REVIEWED (electronic chart updated): PAST MEDICAL HISTORY Diagnosis Date Depression Endometriosis Generalized anxiety disorder IBS (irritable bowel syndrome) Insulin resistance Ischemic hepatitis Ovarian cyst PCOS (polycystic ovarian syndrome) PAST SURGICAL HISTORY Procedure Laterality Date COLONOSCOPY SCREENING L'SCOPE DX W/WO BRUSHINGS/WASHINGS 04/2021 REVISE MEDIAN N/CARPAL TUNNEL SURG Left 06/2011 FAMILY HISTORY Adopted: Yes Social History Tobacco Use Smoking status: Never Smokeless tobacco: Never Vaping Use Vaping status: Never Used Substance Use Topics Alcohol use: Yes Comment: once a year Drug use: Never Current Outpatient Medications Medication Sig FLUoxetine (PROZAC) 10 mg capsule Take one capsule every other day with 10mg for total of 30mg. FLUoxetine (PROZAC) 20 mg capsule Take one capsule every other day with 10mg for total of 30mg. busPIRone (BUSPAR) 5 mg tablet Take 1 tablet by mouth two times a day. lubiprostone (AMITIZA) 8 mcg capsule Take 1 capsule by mouth once daily. fluticasone (FLONASE ALLERGY RELIEF) 50 mcg/actuation nasal spray Flonase Allergy Relief qDay, 0 Refill(s) Start Date: 01/19/21 Status: Ordered ferrous sulfate (IRON) 325 mg (65 mg iron) tablet Take 325 mg by mouth. cholecalciferol (VITAMIN D-3) 5,000 unit tab Take 5,000 Units by mouth once daily. MAGNESIUM CITRATE ORAL Take 150 mg by mouth once daily. docosahexaenoic acid/epa (FISH OIL ORAL) Take 700 mg by mouth once daily. Cetirizine (ZYRTEC) 10 mg cap Take 1 capsule by mouth once daily. No current facility-administered medications for this visit. ALLERGIES Allergen Reactions Tea Tree Hives REVIEW OF SYSTEMS: SEE HPI PHYSICAL EXAMINATION: VIDEO EXAM: (if completed, performed via video enabled technology) GENERAL: alert and appropriate, in no distress, well-hydrated, well nourished, and happy, smiling, interactive ASSESSMENT/PLAN: 1. Anxiety with depression - ICD9: 300.4, ICD10: F41.8 - Continue buspar TID - FLUOXETINE 20 MG CAPSULE Eliud Peñaloza APRN.C[employer] CATCHER I spent a total of 14 minutes on the date of the service which included preparing to see the patient, [id number] patient care, completing clinical documentation, obtaining and/or reviewing separately obtained history, performing a medically appropriate examination, counseling and educating the patient/family/caregiver, ordering medications, tests, or procedures, and communicating results to the patient/family/caregiver Eliud Peñaloza APR[facility] History of Present illness Narrative* Eliud Peñaloza APRN.COLD ROLL CATCHER - 03/26/2024 11:57 AM EST VIRTUAL VISIT PROGRESS NOTE This is a virtual visit using [employer] Z[employer] Video Visit. It required patient- provider interaction for the medical decision making as documented below. I have communicated my name and active licensure. The patient's identity and physical location wereverified at the time of this visit. Either the patient or their legal signs sales representative has been informed of the risks and benefits of -- and alternatives to -- treatment through a remote evaluation andconsents to proceed with the evaluation remotely. Pattie Balderas is a 28 year old female seen for Medication follow up. Patient currently on 30mg and 20mg prozac every other day. Patient buspar increased from twice daily to three times daily. Patient reports she has been doing well and her anxiety is much more controlled and she would like to decrease her prozac. HISTORY REVIEWED (electronic chart updated): PAST MEDICAL HISTORY Diagnosis Date Depression Endometriosis Generalized anxiety disorder IBS (irritable bowel syndrome) Insulin resistance Ischemic hepatitis Ovarian cyst PCOS (polycystic ovarian syndrome) PAST SURGICAL HISTORY Procedure Laterality Date COLONOSCOPY SCREENING L'SCOPE DX W/WO BRUSHINGS/WASHINGS 04/2021 REVISE MEDIAN N/CARPAL TUNNEL SURG Left 06/2011 FAMILY HISTORY Adopted: Yes Social History Tobacco Use Smoking status: Never Smokeless tobacco: Never Vaping Use Vaping status: Never Used Substance Use Topics Alcohol use: Yes Comment: once a year Drug use: Never Current Outpatient Medications Medication Sig FLUoxetine (PROZAC) 10 mg capsule Take one capsule every other day with 10mg for total of 30mg. FLUoxetine (PROZAC) 20 mg capsule Take one capsule every other day with 10mg for total of 30mg. busPIRone (BUSPAR) 5 mg tablet Take 1 tablet by mouth two times a day. lubiprostone (AMITIZA) 8 mcg capsule Take 1 capsule by mouth once daily. fluticasone (FLONASE ALLERGY RELIEF) 50 mcg/actuation nasal spray Flonase Allergy Relief qDay, 0 Refill(s) Start Date: 01/19/21 Status: Ordered ferrous sulfate (IRON) 325 mg (65 mg iron) tablet Take 325 mg by mouth. cholecalciferol (VITAMIN D-3) 5,000 unit tab Take 5,000 Units by mouth once daily. MAGNESIUM CITRATE ORAL Take 150 mg by mouth once daily. docosahexaenoic acid/epa (FISH OIL ORAL) Take 700 mg by mouth once daily. Cetirizine (ZYRTEC) 10 mg cap Take 1 capsule by mouth once daily. No current facility-administered medications for this visit. ALLERGIES Allergen Reactions Tea Tree Hives REVIEW OF SYSTEMS: SEE HPI PHYSICAL EXAMINATION: VIDEO EXAM: (if completed, performed via video enabled technology) GENERAL: alert and appropriate, in no distress, well-hydrated, well nourished, and happy, smiling, interactive ASSESSMENT/PLAN: 1. Anxiety with depression - ICD9: 300.4, ICD10: F41.8 - Continue buspar TID - FLUOXETINE 20 MG CAPSULE Eliud Peñaloza APRN.CNP I spent a total of 14 minutes on the date of the service which included preparing to see the patient, [id number] patient care, completing clinical documentation, obtaining and/or reviewing separately obtained history, performing a medically appropriate examination, counseling and educating the pat ient/family/caregiver, ordering medications, tests, or procedures, and communicating results to thepatient/family/caregiver Eliud Peñaloza APRN.CNP documented in this encounterMary[facility]11-[facility]-2024 NoteHNO ID: [id number] Author: ELIUD PEÑALOZA APRN.CNP Service: ? Author Type: Nurse Practitioner Type: Progress Notes Filed: 02/28/2024 14:33 Note Text: VIRTUAL VISIT PROGRESS NOTE This is a virtual visit using [employer] Video Visit. It required patient-provider interaction for the medical decision making as documented below. I have communicated my name and active licensure. The patient's identity and physical location were verified at the time of this visit. Either the patient or their legal signs sales representative has been informed of the risks and benefits of -- and alternatives to -- treatment through a remote evaluation and consents to proceed with the evaluation remotely. Pattie Balderas is a 28 year old female seen for medication follow up. Patient has been weaning off prozac. Currently on buspar twice daily and prozac alternating 30mg and 20mg. Patient reports this month has been rougher and experiencing slightly more anxiety. Reports she has been ill and because of this she has not been taking her daily walks. No increase in anxiety symptoms. HISTORY REVIEWED (electronic chart updated): PAST MEDICAL HISTORY Diagnosis Date Depression Endometriosis Generalized anxiety disorder IBS (irritable bowel syndrome) Insulin resistance Ischemic hepatitis Ovarian cyst PCOS (polycystic ovarian syndrome) PAST SURGICAL HISTORY Procedure Laterality Date COLONOSCOPY SCREENING L'SCOPE DX W/WO BRUSHINGS/WASHINGS 04/2021 REVISE MEDIAN N/CARPAL TUNNEL SURG Left 06/2011 FAMILY HISTORY Adopted: Yes Social History Tobacco Use Smoking status: Never Smokeless tobacco: Never Vaping Use Vaping status: Never Used Substance Use Topics Alcohol use: Yes Comment: once a year Drug use: Never Current Outpatient Medications Medication Sig FLUoxetine (PROZAC) 10 mg capsule Take one capsule every other day with 10mg for total of 30mg. FLUoxetine (PROZAC) 20 mg capsule Take one capsule every other day with 10mg for total of 30mg. busPIRone (BUSPAR) 5 mg tablet Take 1 tablet by mouth two times a day. lubiprostone (AMITIZA) 8 mcg capsule Take 1 capsule by mouth once daily. fluticasone (FLONASE ALLERGY RELIEF) 50 mcg/actuation nasal spray Flonase Allergy Relief qDay, 0 Refill(s) Start Date: 01/19/21 Status: Ordered ferrous sulfate (IRON) 325 mg (65 mg iron) tablet Take 325 mg by mouth. cholecalciferol (VITAMIN D-3) 5,000 unit tab Take 5,000 Units by mouth once daily. MAGNESIUM CITRATE ORAL Take 150 mg by mouth once daily. docosahexaenoic acid/epa (FISH OIL ORAL) Take 700 mg by mouth once daily. Cetirizine (ZYRTEC) 10 mg cap Take 1 capsule by mouth once daily. No current facility-administered medications for this visit. ALLERGIES Allergen Reactions Tea Tree Hives REVIEW OF SYSTEMS: SEE HPI PHYSICAL EXAMINATION: VIDEO EXAM: (if completed, performed via video enabled technology) GENERAL: alert and appropriate, in no distress, well-hydrated, well nourished, and happy, smiling, interactive ASSESSMENT/PLAN: 1. Anxiety with depression - ICD9: 300.4, ICD10: F41.8 - continue current dosing schedule - Follow up in 4 weeks I spent a total of 11 minutes on the date of the service which included preparing to see the patient, [id number] patient care, completing clinical documentation, obtaining and/or reviewing separately obtained history, performing a medically appropriate examination, counseling and educating the patient/family/caregiver, ordering medications, tests, or procedures, and communicating results to the patient/family/caregiver Eliud Peñaloza APRN.[facility] History of Present illness Narrative* Eliud Peñaloza APRN.FABRIZIO - 02/28/2024 2:26 PM EST VIRTUAL VISIT PROGRESS NOTE This is a virtual visit using [employer] Zoom Video Visit. It required patient- provider interaction for the medical decision making as documented below. I have communicated my name and active licensure. The patient's identity and physical location wereverified at the time of this visit. Either the patient or their legal signs sales representative has been informed of the risks and benefits of -- and alternatives to -- treatment through a remote evaluation andconsents to proceed with the evaluation remotely. Pattie Balderas is a 28 year old female seen for medication follow up. Patient has been weaning off prozac. Currently on buspar twice daily and prozac alternating 30mg and 20mg. Patient reports thismonth has been rougher and experiencing slightly more anxiety. Reports she has been ill and becauseof this she has not been taking her daily walks. No increase in anxiety symptoms. HISTORY REVIEWED (electronic chart updated): PAST MEDICAL HISTORY Diagnosis Date Depression Endometriosis Generalized anxiety disorder IBS (irritable bowel syndrome) Insulin resistance Ischemic hepatitis Ovarian cyst PCOS (polycystic ovarian syndrome) PAST SURGICAL HISTORY Procedure Laterality Date COLONOSCOPY SCREENING L'SCOPE DX W/WO BRUSHINGS/WASHINGS 04/2021 REVISE MEDIAN N/CARPAL TUNNEL SURG Left 06/2011 FAMILY HISTORY Adopted: Yes Social History Tobacco Use Smoking status: Never Smokeless tobacco: Never Vaping Use Vaping status: Never Used Substance Use Topics Alcohol use: Yes Comment: once a year Drug use: Never Current Outpatient Medications Medication Sig FLUoxetine (PROZAC) 10 mg capsule Take one capsule every other day with 10mg for total of 30mg. FLUoxetine (PROZAC) 20 mg capsule Take one capsule every other day with 10mg for total of 30mg. busPIRone (BUSPAR) 5 mg tablet Take 1 tablet by mouth two times a day. lubiprostone (AMITIZA) 8 mcg capsule Take 1 capsule by mouth once daily. fluticasone (FLONASE ALLERGY RELIEF) 50 mcg/actuation nasal spray Flonase Allergy Relief qDay, 0 Refill(s) Start Date: 01/19/21 Status: Ordered ferrous sulfate (IRON) 325 mg (65 mg iron) tablet Take 325 mg by mouth. cholecalciferol (VITAMIN D-3) 5,000 unit tab Take 5,000 Units by mouth once daily. MAGNESIUM CITRATE ORAL Take 150 mg by mouth once daily. docosahexaenoic acid/epa (FISH OIL ORAL) Take 700 mg by mouth once daily. Cetirizine (ZYRTEC) 10 mg cap Take 1 capsule by mouth once daily. No current facility-administered medications for this visit. ALLERGIES Allergen Reactions Tea Tree Hives REVIEW OF SYSTEMS: SEE HPI PHYSICAL EXAMINATION: VIDEO EXAM: (if completed, performed via video enabled technology) GENERAL: alert and appropriate, in no distress, well-hydrated, well nourished, and happy, smiling, interactive ASSESSMENT/PLAN: 1. Anxiety with depression - ICD9: 300.4, ICD10: F41.8 - continue current dosing schedule - Follow up in 4 weeks I spent a total of 11 minutes on the date of the service which included preparing to see the patient, [id number] patient care, completing clinical documentation, obtaining and/or reviewing separately obtained history, performing a medically appropriate examination, counseling and educating the pat ient/family/caregiver, ordering medications, tests, or procedures, and communicating results to thepatient/family/caregiver Eliud Peñaloza APRN.FABRIZIO documented [facility]24 NoteHNO ID: [id number] Author: ELIUD PEÑALOZA APRN.FABRIZIO Service: ? Author Type: Nurse Practitioner Type: Progress Notes Filed: 01/15/2024 15:30 Note Text: VIRTUAL VISIT PROGRESS NOTE This is a virtual visit using [employer] Video Visit. It required patient-provider interaction for the medical decision making as documented below. I have communicated my name and active licensure. The patient's identity and physical location were verified at the time of this visit. Either the patient or their legal signs sales representative has been informed of the risks and benefits of -- and alternatives to -- treatment through a remote evaluation and consents to proceed with the evaluation remotely. Pattie Balderas is a 28 year old female seen for medication follow up. Patient currently on buspar twice daily and prozac 30mg daily. Patient reports she is currently doing well on current medications and would like to continue with weaning off prozac. Reports she is sleeping well, has good energy and motivation. Reports she feels she is getting more of a normal emotional response to situations and not as much all or nothing. HISTORY REVIEWED (electronic chart updated): PAST MEDICAL HISTORY Diagnosis Date Depression Endometriosis Generalized anxiety disorder IBS (irritable bowel syndrome) Insulin resistance Ischemic hepatitis Ovarian cyst PCOS (polycystic ovarian syndrome) PAST SURGICAL HISTORY Procedure Laterality Date COLONOSCOPY SCREENING L'SCOPE DX W/WO BRUSHINGS/WASHINGS 04/2021 REVISE MEDIAN N/CARPAL TUNNEL SURG Left 06/2011 FAMILY HISTORY Adopted: Yes Social History Tobacco Use Smoking status: Never Smokeless tobacco: Never Vaping Use Vaping status: Never Used Substance Use Topics Alcohol use: Yes Comment: once a year Drug use: Never Current Outpatient Medications Medication Sig busPIRone (BUSPAR) 5 mg tablet Take 1 tablet by mouth two times a day. FLUoxetine (PROZAC) 10 mg capsule Take one capsule every other day with 10mg for total of 30mg. FLUoxetine (PROZAC) 20 mg capsule Take one capsule every other day with 10mg for total of 30mg. FLUoxetine (PROZAC) 40 mg capsule Take 1 capsule by mouth every day lubiprostone (AMITIZA) 8 mcg capsule Take 1 capsule by mouth once daily. fluticasone (FLONASE ALLERGY RELIEF) 50 mcg/actuation nasal spray Flonase Allergy Relief qDay, 0 Refill(s) Start Date: 01/19/21 Status: Ordered ferrous sulfate (IRON) 325 mg (65 mg iron) tablet Take 325 mg by mouth. B5/B6/PABA/cord/rhod/P.ginseng (ADRENAL ESSENCE ORAL) Take by mouth. cholecalciferol (VITAMIN D-3) 5,000 unit tab Take 5,000 Units by mouth once daily. MAGNESIUM CITRATE ORAL Take 150 mg by mouth once daily. docosahexaenoic acid/epa (FISH OIL ORAL) Take 700 mg by mouth once daily. Cetirizine (ZYRTEC) 10 mg cap Take 1 capsule by mouth once daily. No current facility-administered medications for this visit. ALLERGIES Allergen Reactions Tea Tree Hives REVIEW OF SYSTEMS: SEE HPI PHYSICAL EXAMINATION: VIDEO EXAM: (if completed, performed via video enabled technology) GENERAL: alert and appropriate, in no distress, well-hydrated, well nourished, and happy, smiling, interactive ASSESSMENT/PLAN: 1. Anxiety with depression - ICD9: 300.4, ICD10: F41.8 -Patient currently taking prozac 30mg daily. Patient to go to alternating doses of 30mg and 20mg every other day for the next month. Continues buspar twice daily. Has not needed third PRN dose I spent a total of 13 minutes on the date of the service which included preparing to see the patient, [id number] patient care, completing clinical documentation, obtaining and/or reviewing separately obtained history, performing a medically appropriate examination, counseling and educating the patient/family/caregiver, ordering medications, tests, or procedures, communicating results to the patient/family/caregiver, and care coordination (not separately reported) Eliud Peñaloza APRN.[facility]09-23-2024 History of Present illness Narrative* Eliud Peñaloza APRN.[facility] - 01/15/2024 3:18 PM EDT VIRTUAL VISIT PROGRESS NOTE This is a virtual visit using I and love and youhart Zoom Video Visit. It required patient- provider interaction for the medical decision making as documented below. I have communicated my name and active licensure. The patient's identity and physical location wereverified at the time of this visit. Either the patient or their legal signs sales representative has been informed of the risks and benefits of -- and alternatives to -- treatment through a remote evaluation andconsents to proceed with the evaluation remotely. Pattie Balderas is a 28 year old female seen for medication follow up. Patient currently on buspartwice daily and prozac 30mg daily. Patient reports she is currently doing well on current medications and would like to continue with weaning off prozac. Reports she is sleeping well, has good energyand motivation. Reports she feels she is getting more of a normal emotional response to situations and not as much all or nothing. HISTORY REVIEWED (electronic chart updated): PAST MEDICAL HISTORY Diagnosis Date Depression Endometriosis Generalized anxiety disorder IBS (irritable bowel syndrome) Insulin resistance Ischemic hepatitis Ovarian cyst PCOS (polycystic ovarian syndrome) PAST SURGICAL HISTORY Procedure Laterality Date COLONOSCOPY SCREENING L'SCOPE DX W/WO BRUSHINGS/WASHINGS 04/2021 REVISE MEDIAN N/CARPAL TUNNEL SURG Left 06/2011 FAMILY HISTORY Adopted: Yes Social History Tobacco Use Smoking status: Never Smokeless tobacco: Never Vaping Use Vaping status: Never Used Substance Use Topics Alcohol use: Yes Comment: once a year Drug use: Never Current Outpatient Medications Medication Sig busPIRone (BUSPAR) 5 mg tablet Take 1 tablet by mouth two times a day. FLUoxetine (PROZAC) 10 mg capsule Take one capsule every other day with 10mg for total of 30mg. FLUoxetine (PROZAC) 20 mg capsule Take one capsule every other day with 10mg for total of 30mg. FLUoxetine (PROZAC) 40 mg capsule Take 1 capsule by mouth every day lubiprostone (AMITIZA) 8 mcg capsule Take 1 capsule by mouth once daily. fluticasone (FLONASE ALLERGY RELIEF) 50 mcg/actuation nasal spray Flonase Allergy Relief qDay, 0 Refill(s) Start Date: 01/19/21 Status: Ordered ferrous sulfate (IRON) 325 mg (65 mg iron) tablet Take 325 mg by mouth. B5/B6/PABA/cord/rhod/P.ginseng (ADRENAL ESSENCE ORAL) Take by mouth. cholecalciferol (VITAMIN D-3) 5,000 unit tab Take 5,000 Units by mouth once daily. MAGNESIUM CITRATE ORAL Take 150 mg by mouth once daily. docosahexaenoic acid/epa (FISH OIL ORAL) Take 700 mg by mouth once daily. Cetirizine (ZYRTEC) 10 mg cap Take 1 capsule by mouth once daily. No current facility-administered medications for this visit. ALLERGIES Allergen Reactions Tea Tree Hives REVIEW OF SYSTEMS: SEE HPI PHYSICAL EXAMINATION: VIDEO EXAM: (if completed, performed via video enabled technology) GENERAL: alert and appropriate, in no distress, well-hydrated, well nourished, and happy, smiling, interactive ASSESSMENT/PLAN: 1. Anxiety with depression - ICD9: 300.4, ICD10: F41.8 -Patient currently taking prozac 30mg daily. Patient to go to alternating doses of 30mg and 20mg every other day for the next month. Continues buspar twice daily. Has not needed third PRN dose I spent a total of 13 minutes on the date of the service which included preparing to see the patient, [id number] patient care, completing clinical documentation, obtaining and/or reviewing separately obtained history, performing a medically appropriate examination, counseling and educating the pat ient/family/caregiver, ordering medications, tests, or procedures, communicating results to the patient/family/caregiver, and care coordination (not separately reported) Eliud Peñaloza APRN.FABRIZIO documented in this encounter[facility]08-[facility]-2024 NoteHNO ID: [id number] Author: ELIUD PEÑALOZA APRN.CNP Service: ? Author Type: Nurse Practitioner Type: Progress Notes Filed: 12/15/2023 12:17 Note Text: VIRTUAL VISIT PROGRESS NOTE This is a virtual visit using Billing[employer]om Video Visit. It required patient-provider interaction for the medical decision making as documented below. I have communicated my name and active licensure. The patient's identity and physical location were verified at the time of this visit. Either the patient or their legal signs sales representative has been informed of the risks and benefits of -- and alternatives to -- treatment through a remote evaluation and consents to proceed with the evaluation remotely. Pattie Balderas is a 28 year old female seen for medication follow up. Patient reports she is feeling better taking buspar twice daily. Does not need 3rd dose of buspar as needed. Currently taking prozac 40mg and 30mg alternating days. Feels stable and would like to resume weaning of prozac. HISTORY REVIEWED (electronic chart updated): PAST MEDICAL HISTORY No date: Depression No date: Endometriosis No date: Generalized anxiety disorder No date: IBS (irritable bowel syndrome) No date: Insulin resistance No date: Ischemic hepatitis No date: Ovarian cyst No date: PCOS (polycystic ovarian syndrome) PAST SURGICAL HISTORY No date: COLONOSCOPY SCREENING 04/2021: L'SCOPE DX W/WO BRUSHINGS/WASHINGS 06/2011: REVISE MEDIAN N/CARPAL TUNNEL SURG; Left FAMILY HISTORY Adopted: Yes Social History Tobacco Use Smoking status: Never Smokeless tobacco: Never Vaping Use Vaping status: Never Used Substance Use Topics Alcohol use: Yes Comment: once a year Drug use: Never Current Outpatient Medications Medication Sig busPIRone (BUSPAR) 5 mg tablet Take 1 tablet by mouth two times a day. FLUoxetine (PROZAC) 10 mg capsule Take one capsule every other day with 10mg for total of 30mg. FLUoxetine (PROZAC) 20 mg capsule Take one capsule every other day with 10mg for total of 30mg. FLUoxetine (PROZAC) 40 mg capsule Take 1 capsule by mouth every day lubiprostone (AMITIZA) 8 mcg capsule Take 1 capsule by mouth once daily. fluticasone (FLONASE ALLERGY RELIEF) 50 mcg/actuation nasal spray Flonase Allergy Relief qDay, 0 Refill(s) Start Date: 01/19/21 Status: Ordered ferrous sulfate (IRON) 325 mg (65 mg iron) tablet Take 325 mg by mouth. B5/B6/PABA/cord/rhod/P.ginseng (ADRENAL ESSENCE ORAL) Take by mouth. cholecalciferol (VITAMIN D-3) 5,000 unit tab Take 5,000 Units by mouth once daily. MAGNESIUM CITRATE ORAL Take 150 mg by mouth once daily. docosahexaenoic acid/epa (FISH OIL ORAL) Take 700 mg by mouth once daily. pantoprazole DR (PROTONIX) 40 mg tablet Take 40 mg by mouth every morning. Cetirizine (ZYRTEC) 10 mg cap Take 1 capsule by mouth once daily. No current facility-administered medications for this visit. ALLERGIES Allergen Reactions Tea Tree Hives REVIEW OF SYSTEMS: SEE HPI PHYSICAL EXAMINATION: VIDEO EXAM: (if completed, performed via video enabled technology) GENERAL: alert and appropriate, in no distress, well-hydrated, well nourished, and happy, smiling, interactive ASSESSMENT/PLAN: 1. Anxiety with depression - ICD9: 300.4, ICD10: F41.8 -Continue buspar -Decrease prozac to 30mg daily Follow up in 4 weeks. Eliud Peñaloza APRN.FABRIZIO I spent a total of 14 minutes on the date of the service which included preparing to see the patient, [id number] patient care, completing clinical documentation, obtaining and/or reviewing separately obtained history, performing a medically appropriate examination, counseling and educating the patient/family/caregiver, ordering medications, tests, or procedures, communicating results to the patient/family/caregiver, and care coordination (not separately reported) Eliud Peñaloza APRN.[facility]08-23-2024 History of Present illness Narrative* Eliud Peñaloza APRN.[employer] - 12/15/2023 12:07 PM EDT VIRTUAL VISIT PROGRESS NOTE This is a virtual visit using I and love and youhart Zoom Video Visit. It required patient- provider interaction for the medical decision making as documented below. I have communicated my name and active licensure. The patient's identity and physical location wereverified at the time of this visit. Either the patient or their legal signs sales representative has been informed of the risks and benefits of -- and alternatives to -- treatment through a remote evaluation andconsents to proceed with the evaluation remotely. Pattie Balderas is a 28 year old female seen for medication follow up. Patient reports she is feeling better taking buspar twice daily. Does not need 3rd dose of buspar as needed. Currently taking prozac 40mg and 30mg alternating days. Feels stable and would like to resume weaning of prozac. HISTORY REVIEWED (electronic chart updated): PAST MEDICAL HISTORY No date: Depression No date: Endometriosis No date: Generalized anxiety disorder No date: IBS (irritable bowel syndrome) No date: Insulin resistance No date: Ischemic hepatitis No date: Ovarian cyst No date: PCOS (polycystic ovarian syndrome) PAST SURGICAL HISTORY No date: COLONOSCOPY SCREENING 04/2021: L'SCOPE DX W/WO BRUSHINGS/WASHINGS 06/2011: REVISE MEDIAN N/CARPAL TUNNEL SURG; Left FAMILY HISTORY Adopted: Yes Social History Tobacco Use Smoking status: Never Smokeless tobacco: Never Vaping Use Vaping status: Never Used Substance Use Topics Alcohol use: Yes Comment: once a year Drug use: Never Current Outpatient Medications Medication Sig busPIRone (BUSPAR) 5 mg tablet Take 1 tablet by mouth two times a day. FLUoxetine (PROZAC) 10 mg capsule Take one capsule every other day with 10mg for total of 30mg. FLUoxetine (PROZAC) 20 mg capsule Take one capsule every other day with 10mg for total of 30mg. FLUoxetine (PROZAC) 40 mg capsule Take 1 capsule by mouth every day lubiprostone (AMITIZA) 8 mcg capsule Take 1 capsule by mouth once daily. fluticasone (FLONASE ALLERGY RELIEF) 50 mcg/actuation nasal spray Flonase Allergy Relief qDay, 0 Refill(s) Start Date: 01/19/21 Status: Ordered ferrous sulfate (IRON) 325 mg (65 mg iron) tablet Take 325 mg by mouth. B5/B6/PABA/cord/rhod/P.ginseng (ADRENAL ESSENCE ORAL) Take by mouth. cholecalciferol (VITAMIN D-3) 5,000 unit tab Take 5,000 Units by mouth once daily. MAGNESIUM CITRATE ORAL Take 150 mg by mouth once daily. docosahexaenoic acid/epa (FISH OIL ORAL) Take 700 mg by mouth once daily. pantoprazole DR (PROTONIX) 40 mg tablet Take 40 mg by mouth every morning. Cetirizine (ZYRTEC) 10 mg cap Take 1 capsule by mouth once daily. No current facility-administered medications for this visit. ALLERGIES Allergen Reactions Tea Tree Hives REVIEW OF SYSTEMS: SEE HPI PHYSICAL EXAMINATION: VIDEO EXAM: (if completed, performed via video enabled technology) GENERAL: alert and appropriate, in no distress, well-hydrated, well nourished, and happy, smiling, interactive ASSESSMENT/PLAN: 1. Anxiety with depression - ICD9: 300.4, ICD10: F41.8 -Continue buspar -Decrease prozac to 30mg daily Follow up in 4 weeks. Eliud Peñaloza APRN.FABRIZIO I spent a total of 14 minutes on the date of the service which included preparing to see the patient, [id number] patient care, completing clinical documentation, obtaining and/or reviewing separately obtained history, performing a medically appropriate examination, counseling and educating the pat ient/family/caregiver, ordering medications, tests, or procedures, communicating results to the patient/family/caregiver, and care coordination (not separately reported) Eliud Peñaloza APRN.FABRIZIO documented [facility] encounter[facility]07-[facility]24 Telephone encounter Note * Telephone Encounter - Daja Matos MA - 11/13/2023 10:24 AM EDT See pt message. Daja Matos MA [facility]07-22-2024 Miscellaneous Notes* Telephone Encounter - Daja Matos MA - 11/13/2023 10:24 AM EDT See pt message. Daja Matos MA * Telephone Encounter - Lilia Tan MA - 11/10/2023 10:30 AM EDT See mychart message. Lilia Tan MA documented in this encounterMary[facility]07-[facility]-2024 Telephone encounter Note * Telephone Encounter - Lilia Tan MA - 11/10/2023 10:30 AM EDT See mychart message. Lilia Tan MA [facility]-2024 NoteHNO ID: [id number] Author: ELIUD PEÑALOZA APRN.[employer] Service: ? Author Type: Nurse Practitioner Type: Progress Notes Filed: 10/30/2023 12:00 Note Text: VIRTUAL VISIT PROGRESS NOTE This is a virtual visit using [employer] Zoom Video Visit. It required patient-provider interaction for the medical decision making as documented below. I have communicated my name and active licensure. The patient's identity and physical location were verified at the time of this visit. Either the patient or their legal signs sales representative has been informed of the risks and benefits of -- and alternatives to -- treatment through a remote evaluation and consents to proceed with the evaluation remotely. Pattie Balderas is a 28 year old female seen for medication follow up. Patient was seen September 25 and wanted to start weaning off her wellbutrin. Patient reports a small increase in anxiety however attributes this to traveling. HISTORY REVIEWED (electronic chart updated): PAST MEDICAL HISTORY Diagnosis Date Depression Endometriosis Generalized anxiety disorder IBS (irritable bowel syndrome) Insulin resistance Ischemic hepatitis Ovarian cyst PCOS (polycystic ovarian syndrome) PAST SURGICAL HISTORY Procedure Laterality Date COLONOSCOPY SCREENING L'SCOPE DX W/WO BRUSHINGS/WASHINGS 04/2021 REVISE MEDIAN N/CARPAL TUNNEL SURG Left 06/2011 FAMILY HISTORY Adopted: Yes Social History Tobacco Use Smoking status: Never Smokeless tobacco: Never Vaping Use Vaping Use: Never used Substance Use Topics Alcohol use: Yes Comment: once a year Drug use: Never Current Outpatient Medications Medication Sig FLUoxetine (PROZAC) 10 mg capsule Take one capsule every other day with 10mg for total of 30mg. FLUoxetine (PROZAC) 20 mg capsule Take one capsule every other day with 10mg for total of 30mg. lubiprostone (AMITIZA) 8 mcg capsule Take 1 capsule by mouth once daily. FLUoxetine (PROZAC) 40 mg capsule Take 1 capsule by mouth every day fluticasone (FLONASE ALLERGY RELIEF) 50 mcg/actuation nasal spray Flonase Allergy Relief qDay, 0 Refill(s) Start Date: 01/19/21 Status: Ordered ferrous sulfate (IRON) 325 mg (65 mg iron) tablet Take 325 mg by mouth. B5/B6/PABA/cord/rhod/P.ginseng (ADRENAL ESSENCE ORAL) Take by mouth. cholecalciferol (VITAMIN D-3) 5,000 unit tab Take 5,000 Units by mouth once daily. MAGNESIUM CITRATE ORAL Take 150 mg by mouth once daily. docosahexaenoic acid/epa (FISH OIL ORAL) Take 700 mg by mouth once daily. pantoprazole DR (PROTONIX) 40 mg tablet Take 40 mg by mouth every morning. Cetirizine (ZYRTEC) 10 mg cap Take 1 capsule by mouth once daily. No current facility-administered medications for this visit. ALLERGIES Allergen Reactions Tea Tree Hives REVIEW OF SYSTEMS: SEE HPI PHYSICAL EXAMINATION: VIDEO EXAM: (if completed, performed via video enabled technology) GENERAL: alert and appropriate, in no distress, well-hydrated, well nourished, and happy, smiling, interactive ASSESSMENT/PLAN: 1. Anxiety with depression - ICD9: 300.4, ICD10: F41.8 - FLUOXETINE 20 MG CAPSULE - FLUOXETINE 10 MG CAPSULE - FLUOXETINE 40 MG CAPSULE Continue 40mg and 30mg every other day dosing for another 2 weeks to evaluate change in anxiety levels. I spent a total of 14 minutes on the date of the service which included preparing to see the patient, [id number] patient care, completing clinical documentation, obtaining and/or reviewing separately obtained history, performing a medically appropriate examination, counseling and educating the patient/family/caregiver, ordering medications, tests, or procedures, communicating results to the patient/family/caregiver, and care coordination (not separately reported) Eliud Peñaloza APRN.[facility]07-08-2024 History of Present illness Narrative* Eliud Peñaloza APRN.[facility] - 10/30/2023 11:50 AM EDT VIRTUAL VISIT PROGRESS NOTE This is a virtual visit using [employer] Zoom Video Visit. It required patient- provider interaction for the medical decision making as documented below. I have communicated my name and active licensure. The patient's identity and physical location wereverified at the time of this visit. Either the patient or their legal signs sales representative has been informed of the risks and benefits of -- and alternatives to -- treatment through a remote evaluation andconsents to proceed with the evaluation remotely. Pattie Balderas is a 28 year old female seen for medication follow up. Patient was seen September 25 and wanted to start weaning off her wellbutrin. Patient reports a small increase in anxiety however attributes this to traveling. HISTORY REVIEWED (electronic chart updated): PAST MEDICAL HISTORY Diagnosis Date Depression Endometriosis Generalized anxiety disorder IBS (irritable bowel syndrome) Insulin resistance Ischemic hepatitis Ovarian cyst PCOS (polycystic ovarian syndrome) PAST SURGICAL HISTORY Procedure Laterality Date COLONOSCOPY SCREENING L'SCOPE DX W/WO BRUSHINGS/WASHINGS 04/2021 REVISE MEDIAN N/CARPAL TUNNEL SURG Left 06/2011 FAMILY HISTORY Adopted: Yes Social History Tobacco Use Smoking status: Never Smokeless tobacco: Never Vaping Use Vaping Use: Never used Substance Use Topics Alcohol use: Yes Comment: once a year Drug use: Never Current Outpatient Medications Medication Sig FLUoxetine (PROZAC) 10 mg capsule Take one capsule every other day with 10mg for total of 30mg. FLUoxetine (PROZAC) 20 mg capsule Take one capsule every other day with 10mg for total of 30mg. lubiprostone (AMITIZA) 8 mcg capsule Take 1 capsule by mouth once daily. FLUoxetine (PROZAC) 40 mg capsule Take 1 capsule by mouth every day fluticasone (FLONASE ALLERGY RELIEF) 50 mcg/actuation nasal spray Flonase Allergy Relief qDay, 0 Refill(s) Start Date: 01/19/21 Status: Ordered ferrous sulfate (IRON) 325 mg (65 mg iron) tablet Take 325 mg by mouth. B5/B6/PABA/cord/rhod/P.ginseng (ADRENAL ESSENCE ORAL) Take by mouth. cholecalciferol (VITAMIN D-3) 5,000 unit tab Take 5,000 Units by mouth once daily. MAGNESIUM CITRATE ORAL Take 150 mg by mouth once daily. docosahexaenoic acid/epa (FISH OIL ORAL) Take 700 mg by mouth once daily. pantoprazole DR (PROTONIX) 40 mg tablet Take 40 mg by mouth every morning. Cetirizine (ZYRTEC) 10 mg cap Take 1 capsule by mouth once daily. No current facility-administered medications for this visit. ALLERGIES Allergen Reactions Tea Tree Hives REVIEW OF SYSTEMS: SEE HPI PHYSICAL EXAMINATION: VIDEO EXAM: (if completed, performed via video enabled technology) GENERAL: alert and appropriate, in no distress, well-hydrated, well nourished, and happy, smiling, interactive ASSESSMENT/PLAN: 1. Anxiety with depression - ICD9: 300.4, ICD10: F41.8 - FLUOXETINE 20 MG CAPSULE - FLUOXETINE 10 MG CAPSULE - FLUOXETINE 40 MG CAPSULE Continue 40mg and 30mg every other day dosing for another 2 weeks to evaluate change in anxiety levels. I spent a total of 14 minutes on the date of the service which included preparing to see the patient, [id number] patient care, completing clinical documentation, obtaining and/or reviewing separately obtained history, performing a medically appropriate examination, counseling and educating the pat ient/family/caregiver, ordering medications, tests, or procedures, communicating results to the patient/family/caregiver, and care coordination (not separately reported) Eliud Peñaloza APRN.FABRIZIO documented [facility] Telephone encounter Note * Telephone Encounter - Lilia Tan MA - 10/13/2023 10:15 AM EDT See pt [employer] message. Lilia Tan MA [facility]06-21-[facility] Miscellaneous Notes* Telephone Encounter - Lilia Tan MA - 10/13/2023 10:15 AM EDT See pt mychart message. Lilia Tan MA * Telephone Encounter - Daja Matos MA - 10/06/2023 8:27 AM EDT Please review pt message. Do you want pt to r/s her appt and when do you want her to f/u, 4 weeks? Daja Matos MA documented in this encounter[facility]06-[facility]24 Telephone encounter Note * Telephone Encounter - Daja Matos MA - 10/06/2023 8:27 AM EDT Please review pt message. Do you want pt to r/s her appt and when do you want her to f/u, 4 weeks? Daja Matos MA [facility]06-04-2024 NoteHNO ID: [id number] Author: ELIUD PEÑALOZA APRN.COLD ROLL CATCHER Service: ? Author Type: Nurse Practitioner Type: Progress Notes Filed: 09/26/2023 09:07 Note Text: Chief Complaint Patient presents with: Follow Up HPI Pattie Balderas is a 28 year old female who presents here today for Above Complaints.. Patient presents for medication follow up. Patient currently taking iron and vitamin c every other day and has noticed an improvement in her fatigue. Patient had bowel obstruction but has recovered well and follows with Dr. Reddy. Patient would like to trial weaning prozac down. Past medical history, appointments, medications, allergies reviewed. Previous Medical History PAST MEDICAL HISTORY Diagnosis Date Depression Endometriosis Generalized anxiety disorder IBS (irritable bowel syndrome) Insulin resistance Ischemic hepatitis Ovarian cyst PCOS (polycystic ovarian syndrome) Previous Surgical History PAST SURGICAL HISTORY Procedure Laterality Date COLONOSCOPY SCREENING L'SCOPE DX W/WO BRUSHINGS/WASHINGS 04/2021 REVISE MEDIAN N/CARPAL TUNNEL SURG Left 06/2011 Family History FAMILY HISTORY Adopted: Yes Patient Allergies ALLERGIES Allergen Reactions Tea Tree Hives Current Medications Current Outpatient Medications on File Prior to Visit Medication Sig FLUoxetine (PROZAC) 40 mg capsule Take 1 capsule by mouth every day lubiprostone (AMITIZA) 24 mcg capsule Take 1 capsule by mouth once daily. fluticasone (FLONASE ALLERGY RELIEF) 50 mcg/actuation nasal spray Flonase Allergy Relief qDay, 0 Refill(s) Start Date: 01/19/21 Status: Ordered ferrous sulfate (IRON) 325 mg (65 mg iron) tablet Take 325 mg by mouth. B5/B6/PABA/cord/rhod/P.ginseng (ADRENAL ESSENCE ORAL) Take by mouth. cholecalciferol (VITAMIN D-3) 5,000 unit tab Take 5,000 Units by mouth once daily. MAGNESIUM CITRATE ORAL Take 150 mg by mouth once daily. docosahexaenoic acid/epa (FISH OIL ORAL) Take 700 mg by mouth once daily. pantoprazole DR (PROTONIX) 40 mg tablet Take 40 mg by mouth every morning. Cetirizine (ZYRTEC) 10 mg cap Take 1 capsule by mouth once daily. No current facility-administered medications on file prior to visit. Social History Social History Tobacco Use Smoking status: Never Smokeless tobacco: Never Vaping Use Vaping Use: Never used Substance Use Topics Alcohol use: Yes Comment: once a year Drug use: Never Review of Symptoms REVIEW OF SYSTEMS SEE HPI EXAM: BP 120/71 Pulse 86 Resp 14 Wt 65.8 kg (145 lb) LMP 06/26/2023 BMI 25.69 kg/m? General Appearance: Well appearing, alert, in no acute distress, well-hydrated, well nourished.. Lungs: Lungs clear to auscultation. No wheezing, rhonchi, rales.. Heart: RRR without murmur, gallop, or rubs. No ectopy. Health Maintenance List Hepatitis C Screening Never done HIV Screening Never done Hepatitis B Vaccine(1 of 3 - 19+ 3-dose series) Never done Covid-19 Vaccine(2022- season) due on 12/23/2022 Pap Testing due on 03/21/2026 DTaP,Tdap,Td Vaccine(2 - Td or Tdap) due on 01/19/2031 Influenza Vaccine Completed Behavioral Health Screening Completed HPV Vaccine Aged Out ASSESSMENT/PLAN: 1. Anxiety with depression - ICD9: 300.4, ICD10: F41.8 -Patient to take 40mg/30mg alternating every other day for the next two weeks. Will follow up with [facility] in 2 weeks to reassess taper. - FLUOXETINE 20 MG CAPSULE - FLUOXETINE 10 MG CAPSULE Eliud Peñaloza APRN.[facility] History of Present illness Narrative* Eliud Peñaloza APRN.COLD ROLL CATCHER - 09/26/2023 8:50 AM EDT Chief Complaint Patient presents with: Follow Up HPI Pattie Balderas is a 28 year old female who presents here today for Above Complaints.. Patient presents for medication follow up. Patient currently taking iron and vitamin c every other day and has noticed an improvement in her fatigue. Patient had bowel obstruction but has recovered well and follows with Dr. Reddy. Patient would like to trial weaning prozac down. Past medical history, appointments, medications, allergies reviewed. Previous Medical History PAST MEDICAL HISTORY Diagnosis Date Depression Endometriosis Generalized anxiety disorder IBS (irritable bowel syndrome) Insulin resistance Ischemic hepatitis Ovarian cyst PCOS (polycystic ovarian syndrome) Previous Surgical History PAST SURGICAL HISTORY Procedure Laterality Date COLONOSCOPY SCREENING L'SCOPE DX W/WO BRUSHINGS/WASHINGS 04/2021 REVISE MEDIAN N/CARPAL TUNNEL SURG Left 06/2011 Family History FAMILY HISTORY Adopted: Yes Patient Allergies ALLERGIES Allergen Reactions Tea Tree Hives Current Medications Current Outpatient Medications on File Prior to Visit Medication Sig FLUoxetine (PROZAC) 40 mg capsule Take 1 capsule by mouth every day lubiprostone (AMITIZA) 24 mcg capsule Take 1 capsule by mouth once daily. fluticasone (FLONASE ALLERGY RELIEF) 50 mcg/actuation nasal spray Flonase Allergy Relief qDay, 0 Refill(s) Start Date: 01/19/21 Status: Ordered ferrous sulfate (IRON) 325 mg (65 mg iron) tablet Take 325 mg by mouth. B5/B6/PABA/cord/rhod/P.ginseng (ADRENAL ESSENCE ORAL) Take by mouth. cholecalciferol (VITAMIN D-3) 5,000 unit tab Take 5,000 Units by mouth once daily. MAGNESIUM CITRATE ORAL Take 150 mg by mouth once daily. docosahexaenoic acid/epa (FISH OIL ORAL) Take 700 mg by mouth once daily. pantoprazole DR (PROTONIX) 40 mg tablet Take 40 mg by mouth every morning. Cetirizine (ZYRTEC) 10 mg cap Take 1 capsule by mouth once daily. No current facility-administered medications on file prior to visit. Social History Social History Tobacco Use Smoking status: Never Smokeless tobacco: Never Vaping Use Vaping Use: Never used Substance Use Topics Alcohol use: Yes Comment: once a year Drug use: Never Review of Symptoms REVIEW OF SYSTEMS SEE HPI EXAM: BP 120/71 Pulse 86 Resp 14 Wt 65.8 kg (145 lb) LMP 06/26/2023 BMI 25.69 kg/m General Appearance: Well appearing, alert, in no acute distress, well-hydrated, well nourished.. Lungs: Lungs clear to auscultation. No wheezing, rhonchi, rales.. Heart: RRR without murmur, gallop, or rubs. No ectopy. Health Maintenance List Hepatitis C Screening Never done HIV Screening Never done Hepatitis B Vaccine(1 of 3 - 19+ 3-dose series) Never done Covid-19 Vaccine(2022- season) due on 12/23/2022 Pap Testing due on 03/21/2026 DTaP,Tdap,Td Vaccine(2 - Td or Tdap) due on 01/19/2031 Influenza Vaccine Completed Behavioral Health Screening Completed HPV Vaccine Aged Out ASSESSMENT/PLAN: 1. Anxiety with depression - ICD9: 300.4, ICD10: F41.8 -Patient to take 40mg/30mg alternating every other day for the next two weeks. Will follow up with VV in 2 weeks to reassess taper. - FLUOXETINE 20 MG CAPSULE - FLUOXETINE 10 MG CAPSULE Eliud Peñaloza APRN.COLD ROLL CATCHER documented [facility] encounter[facility]05-[facility] Telephone encounter Note * Telephone Encounter - Eliz Vuong MA - 08/29/2023 8:13 AM EDT Patient has been identified by name and date of : Yes Patient phones for refill(s): Requested Prescriptions Pending Prescriptions Disp Refills FLUoxetine (PROZAC) 40 mg capsule 90 capsule 1 Sig: Take 1 capsule by mouth every day Date of last office visit in primary care: 07/11/2023 Date of next office visit in primary care: 09/26/2023 Please advise. Thank you. Eliz Vuong MA. [facility]05-07-[facility] Miscellaneous Notes* Telephone Encounter - Eliz Vuong MA - 08/29/2023 8:13 AM EDT Patient has been identified by name and date of : Yes Patient phones for refill(s): Requested Prescriptions Pending Prescriptions Disp Refills FLUoxetine (PROZAC) 40 mg capsule 90 capsule 1 Sig: Take 1 capsule by mouth every day Date of last office visit in primary care: 07/11/2023 Date of next office visit in primary care: 09/26/2023 Please advise. Thank you. Eliz Vuong MA. documented in this encounterMary[facility]04-04-2024 Miscellaneous Notes* Telephone Encounter - Kenroy Marshall LPN - 07/27/2023 2:32 PM EDT Spoke with pt and information listed below given. Pt verbalizes understanding. Kenroy Marshall LPN * Telephone Encounter - Kayla Mandel MA - 07/27/2023 9:15 AM EDT Left message for patient to return call to office Kayla Mandel MA * Telephone Encounter - Eliud Peñaloza APRN.FABRIZIO - 07/27/2023 8:35 AM EDT Please let patient know their echo is normal. documented in this [facility]03-19-2024 Miscellaneous Notes* Telephone Encounter - Lilia Tan MA - 07/11/2023 3:40 PM EDT See [employer] message. Lilia Tan MA documented in this [facility]03-19-2024 Miscellaneous Notes* Telephone Encounter - Lilia Tan MA - 07/11/2023 3:24 PM EDT Pt notified of results via [employer]. Lilia Tan Ma * Telephone Encounter - Eliud Peñaloza APRN.CNP - 07/11/2023 3:19 PM EDT Please let patient know their CT is normal. documented in this [facility]03-19-2024 Miscellaneous Notes* [facility] - Rama Tang RT(R) - 07/11/2023 2:00 PM EDT Radiology Service Progress Note DATE OF SERVICE: July 11, 2023 TIME: 2:30 PM PATIENT IDENTITY VERIFICATION COMPLETED USING TWO (2) STANDARD IDENTIFIERS: Name and Date of confirmed by patient verbally. FALL SCREENING: Has the patient had 2 falls in the last year or 1 fall with injury or currently using an Ambulatory Assistive Device (Walker, Cane, Wheelchair, Crutches, etc.)? No PATIENT GENDER DATA: Female. status: : No status: NO. PATIENT RELEVANT IMPLANT DATA REVIEWED: Not Applicable PATIENT PRESENTS WITH AN IMPLANTABLE OR ATTACHED MELLOWING MACHINE OPERATOR: No ALLERGIES: Reviewed and unchanged CONTRAST ALLERGY: NO. EXAM: CT -CONTRAST INDUCED NEPHROPATHY RISK FACTORS: Not applicable CREATININE: Creatinine Date Value Ref Range Status 06/20/2023 0.63 0.58 - 0.96 mg/dL Final Estimated Glomerular Filtration Rate Date Value Ref Range Status 06/20/2023 125 >=60 mL/min/1.73m Final Comment: Estimated Glomerular Filtration Rate (eGFR) is calculated using the 2020 CKD-EPI creatinine equation. This equation utilizes serum creatinine, sex, and age as parameters. The creatinine assay has traceable calibration to isotope dilution- mass spectrometry. Refer to KDIGO guidelines for clinical interpretation. In patients with unstable renal function, e.g. those with acute kidney injury, the eGFRmay not accurately reflect actual GFR. P.O.C.T. RESULTS: POC done: Yes, See Lab Tab July 11, 2023 TREATMENT: N/A PERIPHERAL IV DATA: Ambulatory: A peripheral IV was started in the Left antecubital site with a Angio cath: 20 gauge. RADIOLOGY DEPARTMENT: CT; Exam(s) Completed: Abdomen/Pelvis SIGNATURE: RT Antonia(R) PATIENT NAME: Pattie Balderas DATE: July 11, 2023 TIME: 2:30 PM documented in this [facility]03-[facility]24 Miscellaneous Notes* Telephone Encounter - Lilia Tan MA - 07/11/2023 9:47 AM EDT Pt notified of results via [employer]. Lilia Tan Ma * Telephone Encounter - Eliud Peñaloza APRN.CNP - 07/11/2023 9:37 AM EDT Please let patient know their xray is normal. documented in this encounterMary[facility]03-19-2024 History of Present illness Narrative* Roma Cantu RT(R) - 07/11/2023 9:00 AM EDT Radiology Service Progress Note PATIENT NAME: Pattie Balderas DATE OF SERVICE: July 11, 2023 TIME: 8:49 AM PATIENT IDENTITY VERIFICATION COMPLETED USING TWO (2) IDENTIFIERS: Name and Date of confirmedby patient verbally. FALL SCREENING: Has the patient had 2 falls in the last year or 1 fall with injury or currently using an Ambulatory Assistive Device (Walker, Cane, Wheelchair, Crutches, etc.)? No PATIENT GENDER DATA: Female. status: : No status: NO. PATIENT RELEVANT IMPLANT DATA REVIEWED: Not Applicable PATIENT PRESENTS WITH AN IMPLANTABLE OR ATTACHED MELLOWING MACHINE OPERATOR: No RADIOLOGY DEPARTMENT: General X-ray: Exam(s) Completed: Abdomen X-Ray: Abdomen PERIPHERAL IV DATA: Not applicable SIGNED BY: RT Bethel(R) July 11, 2023 8:49 AM documented in this encounterMary[facility]03-19-2024 NoteHNO ID: [id number] Author: ROMA CANTU RT(Brody) Service: Radiology Author Type: Technologist Type: Progress Notes Filed: 07/11/2023 09:00 Note Text: Radiology Service Progress Note PATIENT NAME: Pattie Balderas DATE OF SERVICE: July 11, 2023 TIME: 8:49 AM PATIENT IDENTITY VERIFICATION COMPLETED USING TWO (2) IDENTIFIERS: Name and Date of confirmed by patient verbally. FALL SCREENING: Has the patient had 2 falls in the last year or 1 fall with injury or currently using an Ambulatory Assistive Device (Walker, Cane, Wheelchair, Crutches, etc.)? No PATIENT GENDER DATA: Female. status: : No status: NO. PATIENT RELEVANT IMPLANT DATA REVIEWED: Not Applicable PATIENT PRESENTS WITH AN IMPLANTABLE OR ATTACHED MELLOWING MACHINE OPERATOR: No RADIOLOGY DEPARTMENT: General X-ray: Exam(s) Completed: Abdomen X-Ray: Abdomen PERIPHERAL IV DATA: Not applicable SIGNED BY: RT Bethel(R) July 11, 2023 8:49 [facility]03-19-2024 NoteHNO ID: [id number] Author: ELIUD PEÑALOZA APRN.COLD ROLL CATCHER Service: ? Author Type: Nurse Practitioner Type: Progress Notes Filed: 07/11/2023 08:47 Note Text: Chief Complaint Patient presents with: ER F/U HPI Pattie Balderas is a 28 year old female who presents here today for Above Complaints.. Six days ago presented to OSH ED for nausea, vomiting, diarrhea, abdominal pain. CBC, CMP, UA unremarkable. Did not perform CT. Received IV fluids, Zofran, morphine and instructed to follow up with PCP and GI. Today, feeling bloated. Has not had bowel movement in 5 days. Still feeling intermittently nauseous. Has headache that feels like pressure. Decreased PO intake. Tolerating liquids and urinating normally, however not able to eat solid foods secondary to nausea and abdominal pain. Is passing gas. Has EGD in August scheduled in August. Does not see GI until October. Past medical history, appointments, medications, allergies reviewed. Previous Medical History PAST MEDICAL HISTORY Diagnosis Date Depression Endometriosis Generalized anxiety disorder IBS (irritable bowel syndrome) Insulin resistance Ischemic hepatitis Ovarian cyst PCOS (polycystic ovarian syndrome) Previous Surgical History PAST SURGICAL HISTORY Procedure Laterality Date COLONOSCOPY SCREENING L'SCOPE DX W/WO BRUSHINGS/WASHINGS 04/2021 REVISE MEDIAN N/CARPAL TUNNEL SURG Left 06/2011 Family History FAMILY HISTORY Adopted: Yes Patient Allergies ALLERGIES Allergen Reactions Tea Tree Hives Current Medications Current Outpatient Medications on File Prior to Visit Medication Sig fluticasone (FLONASE ALLERGY RELIEF) 50 mcg/actuation nasal spray Flonase Allergy Relief qDay, 0 Refill(s) Start Date: 01/19/21 Status: Ordered ferrous sulfate (IRON) 325 mg (65 mg iron) tablet Take 325 mg by mouth. B5/B6/PABA/cord/rhod/P.ginseng (ADRENAL ESSENCE ORAL) Take by mouth. cholecalciferol (VITAMIN D-3) 5,000 unit tab Take 5,000 Units by mouth once daily. MAGNESIUM CITRATE ORAL Take 150 mg by mouth once daily. docosahexaenoic acid/epa (FISH OIL ORAL) Take 700 mg by mouth once daily. lubiprostone (AMITIZA) 24 mcg capsule Take 1 capsule by mouth once daily. FLUoxetine (PROZAC) 40 mg capsule Take 1 capsule by mouth every day pantoprazole DR (PROTONIX) 40 mg tablet Take 40 mg by mouth every morning. Cetirizine (ZYRTEC) 10 mg cap Take 1 capsule by mouth once daily. No current facility-administered medications on file prior to visit. Social History Social History Tobacco Use Smoking status: Never Smokeless tobacco: Never Vaping Use Vaping Use: Never used Substance Use Topics Alcohol use: Yes Comment: once a year Drug use: Never Review of Symptoms REVIEW OF SYSTEMS See HPI EXAM: BP 112/72 Pulse 72 Resp 14 Wt 64.4 kg (142 lb) LMP 06/26/2023 BMI 25.15 kg/m? General Appearance: Well appearing, alert, in no acute distress, well-hydrated, well nourished.. Lungs: Lungs clear to auscultation. No wheezing, rhonchi, rales.. Heart: RRR without murmur, gallop, or rubs. No ectopy. Abdomen: Bowel sounds WNL, Positive findings: tenderness moderate LLQ and generalized. Health Maintenance List Hepatitis C Screening Never done HIV Screening Never done Hepatitis B Vaccine(1 of 3 - 19+ 3-dose series) Never done Covid-19 Vaccine(2022- season) due on 12/23/2022 Depression Assessment Never done Pap Testing due on 03/21/2026 DTaP,Tdap,Td Vaccine(2 - Td or Tdap) due on 01/19/2031 Influenza Vaccine Completed HPV Vaccine Aged Out ASSESSMENT/PLAN: 1. Left lower quadrant abdominal pain - ICD9: 789.04, ICD10: R10.32 (primary diagnosis) - Work up with CT Abdomen/Pelvis and KUB - CT ABD/PEL W IVCON - IV CONTRAST (RADIOLOGY PROCEDURE) - ENTERIC CONTRAST (RADIOLOGY PROCEDURE) - XR ABDOMEN 1V SUPINE - XR ABDOMEN 1V SUPINE 2. Nausea and vomiting, unspecified vomiting type - ICD9: 787.01, ICD10: R11.2 - XR ABDOMEN 1V SUPINE - XR ABDOMEN 1V SUPINE E Aravind [employer] Student I have personally seen and examined the patient and performed the medical-decision making components. I have reviewed the Advanced Practice Registered Nurse ([employer]) student's documentation and verified the findings in the note as written. Any additions or changes are noted in bold/italics. Eliud Peñaloza APRN.[facility]03-19-2024 History of Present illness Narrative* Eliud Peñaloza, MARY.COLD ROLL CATCHER - 07/11/2023 8:02 AM EDT Chief Complaint Patient presents with: ER F/U HPI Pattie Balderas is a 28 year old female who presents here today for Above Complaints.. Six days ago presented to OSH ED for nausea, vomiting, diarrhea, abdominal pain. CBC, CMP, UA unremarkable. Did not perform CT. Received IV fluids, Zofran, morphine and instructed to follow up with PCP and GI. Today, feeling bloated. Has not had bowel movement in 5 days. Still feeling intermittently nauseous. Has headache that feels like pressure. Decreased PO intake. Tolerating liquids and urinating normally, however not able to eat solid foods secondary to nausea and abdominal pain. Is passing gas. Has EGD in August scheduled in August. Does not see GI until October. Past medical history, appointments, medications, allergies reviewed. Previous Medical History PAST MEDICAL HISTORY Diagnosis Date Depression Endometriosis Generalized anxiety disorder IBS (irritable bowel syndrome) Insulin resistance Ischemic hepatitis Ovarian cyst PCOS (polycystic ovarian syndrome) Previous Surgical History PAST SURGICAL HISTORY Procedure Laterality Date COLONOSCOPY SCREENING L'SCOPE DX W/WO BRUSHINGS/WASHINGS 04/2021 REVISE MEDIAN N/CARPAL TUNNEL SURG Left 06/2011 Family History FAMILY HISTORY Adopted: Yes Patient Allergies ALLERGIES Allergen Reactions Tea Tree Hives Current Medications Current Outpatient Medications on File Prior to Visit Medication Sig fluticasone (FLONASE ALLERGY RELIEF) 50 mcg/actuation nasal spray Flonase Allergy Relief qDay, 0 Refill(s) Start Date: 01/19/21 Status: Ordered ferrous sulfate (IRON) 325 mg (65 mg iron) tablet Take 325 mg by mouth. B5/B6/PABA/cord/rhod/P.ginseng (ADRENAL ESSENCE ORAL) Take by mouth. cholecalciferol (VITAMIN D-3) 5,000 unit tab Take 5,000 Units by mouth once daily. MAGNESIUM CITRATE ORAL Take 150 mg by mouth once daily. docosahexaenoic acid/epa (FISH OIL ORAL) Take 700 mg by mouth once daily. lubiprostone (AMITIZA) 24 mcg capsule Take 1 capsule by mouth once daily. FLUoxetine (PROZAC) 40 mg capsule Take 1 capsule by mouth every day pantoprazole DR (PROTONIX) 40 mg tablet Take 40 mg by mouth every morning. Cetirizine (ZYRTEC) 10 mg cap Take 1 capsule by mouth once daily. No current facility-administered medications on file prior to visit. Social History Social History Tobacco Use Smoking status: Never Smokeless tobacco: Never Vaping Use Vaping Use: Never used Substance Use Topics Alcohol use: Yes Comment: once a year Drug use: Never Review of Symptoms REVIEW OF SYSTEMS See HPI EXAM: BP 112/72 Pulse 72 Resp 14 Wt 64.4 kg (142 lb) LMP 06/26/2023 BMI 25.15 kg/m General Appearance: Well appearing, alert, in no acute distress, well-hydrated, well nourished.. Lungs: Lungs clear to auscultation. No wheezing, rhonchi, rales.. Heart: RRR without murmur, gallop, or rubs. No ectopy. Abdomen: Bowel sounds WNL, Positive findings: tenderness moderate LLQ and generalized. Health Maintenance List Hepatitis C Screening Never done HIV Screening Never done Hepatitis B Vaccine(1 of 3 - 19+ 3-dose series) Never done Covid-19 Vaccine( - 2022- season) due on 12/23/2022 Depression Assessment Never done Pap Testing due on 03/21/2026 DTaP,Tdap,Td Vaccine(2 - Td or Tdap) due on 01/19/2031 Influenza Vaccine Completed HPV Vaccine Aged Out ASSESSMENT/PLAN: 1. Left lower quadrant abdominal pain - ICD9: 789.04, ICD10: R10.32 (primary diagnosis) - Work up with CT Abdomen/Pelvis and KUB - CT ABD/PEL W IVCON - IV CONTRAST (RADIOLOGY PROCEDURE) - ENTERIC CONTRAST (RADIOLOGY PROCEDURE) - XR ABDOMEN 1V SUPINE - XR ABDOMEN 1V SUPINE 2. Nausea and vomiting, unspecified vomiting type - ICD9: 787.01, ICD10: R11.2 - XR ABDOMEN 1V SUPINE - XR ABDOMEN 1V SUPINE E Aravind [employer] Student I have personally seen and examined the patient and performed the medical- decision making components. I have reviewed the Advanced Practice Registered Nurse (LABORER COOK HOUSE) student's documentation and verified the findings in the note as written. Any additions or changes are noted in bold/italics. Eliud Peñaloza APRN.COLD ROLL CATCHER documented in this encounterMarymount Hospital03-14-2024 Miscellaneous Notes* Telephone Encounter - Elke Cantu - 07/06/2023 8:26 AM EDT Pt called to cancel appointment and Echo. She is currently in the [facility] ER fordehydration and nausea and vomiting. documented in this encounterMarymount Hospital03-08-2024 Miscellaneous Notes* Telephone Encounter - Kayla Mandel MA - 06/30/2023 12:58 PM EST Pt active on [employer]- message sent Kayla Mandel MA * Telephone Encounter - Eliud Peñaloza APRN.CNP - 06/30/2023 12:27 PM EST Please let patient know their labs are normal. documented in this encounterMarymount Hospital03-04-2024 Miscellaneous Notes* Telephone Encounter - Sultana Garcia RN - 06/26/2023 2:45 PM EST Adamaris nurse from Dr. Reddy's office ([facility]) calling in stating pt has been calling them frequently asking for a colonoscopy. Pt was last seen by their office in September 2021.Pt had a colonoscopy with them in June 2021 which was normal with a hyperplastic polyp so she doesnot need one per their office. Per a Pharmacy Development msg this morning, pt states she contacted Dr. Womacksoffice about scheduling a colonoscopy due to worsening GI symptoms and low iron. Adamaris for suresaid they would not be able to do a colonoscopy without a consult first. Pt is ordered Amitiza by their office and got a refill for that on 06/15/23 for 30 tablets and per Adamaris was told that would be the last prescription that they would give her and she would have to get refills from her PCP. Per med note on 06/20/23, pt reported not taking it. Per office note on 06/20/23, pt told Eliud Ezequiel that her IBS has worsened primarily constipation with abd pain. No mention of colonoscopy or referral to GI. Adamaris asking for lab results and office note to be faxed to their office at [phone]. Also as per note above, Adamaris said pt is to be on Amitiza for her IBS but it appears pt is not currently taking that. Called pt and she states that she is taking her Amitiza as Dr. Reddy just increased it to 24 mcg daily on 06/15. Pattie states she has a hx of an ulcer on an EGD done by Dr. Reddy. Pt is due to repeat that the end of August. Pattie states spoke to someone in Dr. Reddy's office who said that they couldpossibly add on the colonoscopy at the same time and that it would be okay to do before her follow up appt in October. Spoke with [facility] again who adamantly states they will not be doing a colonoscopy on the pt as there is no need for one. She states even if provider sends over a referral for a colonoscopy, they won't be doing one. Will send msg to pt's PCP provider to review. documented in this encounterMarymount Hospital03-04-2024 Miscellaneous Notes* Telephone Encounter - Daja Matos Ma - 06/26/2023 9:10 AM EST See pt message. Notified her that Provider is out of office until Monday. Daja Matos Ma documented in this encounterMarymount Hospital03-04-2024 History of Present illness Narrative* Danielle Donato MD - 06/26/2023 8:16 AM EST [facility] Initial Clinic Visit Note CONSULTING PHYSICIAN: Eliud Peñaloza APRN. COLD ROLL CATCHER My final recommendations will be communicated back to the requesting physician by way of shared Medical record or a letter via [place] mail Subjective: Pattie Balderas is a 27 year old female here to establish care for hypothyroidism. Patient reports she was feeling very tired and hence thyroid labs were checked General symptoms: Fatigue: yes, sleeping more than usual, brain fog She has been through some stress Weight change: 25 lbs weight gain in the last 1 year Appetite change: fluctuating with IBS Menstrual irregularities: regular Change in bowel habits: IBS Temperature intolerance: fluctuating Family history: adopted, so does not medical history of the family REVIEW OF SYSTEMS: As per HPI ALLERGIES: ALLERGIES Allergen Reactions Tea Tree Hives MEDICATIONS: Current Outpatient Medications on File Prior to Visit Medication Sig fluticasone (FLONASE ALLERGY RELIEF) 50 mcg/actuation nasal spray Flonase Allergy Relief qDay, 0 Refill(s) Start Date: 01/19/21 Status: Ordered ferrous sulfate (IRON) 325 mg (65 mg iron) tablet Take 325 mg by mouth. B5/B6/PABA/cord/rhod/P.ginseng (ADRENAL ESSENCE ORAL) Take by mouth. cholecalciferol (VITAMIN D-3) 5,000 unit tab Take 5,000 Units by mouth once daily. MAGNESIUM CITRATE ORAL Take 150 mg by mouth once daily. docosahexaenoic acid/epa (FISH OIL ORAL) Take 700 mg by mouth once daily. lubiprostone (AMITIZA) 24 mcg capsule Take 1 capsule by mouth once daily. FLUoxetine (PROZAC) 40 mg capsule Take 1 capsule by mouth every day pantoprazole DR (PROTONIX) 40 mg tablet Take 40 mg by mouth every morning. Cetirizine (ZYRTEC) 10 mg cap Take 1 capsule by mouth once daily. No current facility-administered medications on file prior to visit. PAST MEDICAL HISTORY: PAST MEDICAL HISTORY Diagnosis Date Depression Endometriosis Generalized anxiety disorder IBS (irritable bowel syndrome) Insulin resistance Ischemic hepatitis Ovarian cyst PCOS (polycystic ovarian syndrome) PAST SURGICAL HISTORY: PAST SURGICAL HISTORY Procedure Laterality Date COLONOSCOPY SCREENING L'SCOPE DX W/WO BRUSHINGS/WASHINGS 04/2021 REVISE MEDIAN N/CARPAL TUNNEL SURG Left 06/2011 FAMILY HISTORY: FAMILY HISTORY Adopted: Yes SOCIAL HISTORY: Social History Tobacco Use Smoking status: Never Smokeless tobacco: Never Vaping Use Vaping Use: Never used Substance Use Topics Alcohol use: Yes Comment: once a year Drug use: Never PHYSICAL EXAM: BP 108/64 Pulse 83 Temp 36.5 C (97.7 F) (Temporal Artery) Ht 160 cm (5' 3) Wt 67 kg (147 lb 12.8 oz) LMP 06/26/2023 SpO2 98% BMI 26.18 kg/m Last 3 Encounter Wt Readings: Date: Wt: 06/26/2023 67 kg (147 lb 12.8 oz) 06/20/2023 65.3 kg (144 lb) 03/21/2023 62.3 kg (137 lb 6.4 oz) General: Alert and oriented x3, no acute distress Eyes: Anicteric sclera. Extraocular movements are intact. Neck supple, no cervical lymphadenopathy Thyroid: normal size, normal texture, no palpable nodules Lungs: Breathing unlabored, clear to auscultation. No wheezing, rhonchi, rales Heart regular rate and rhythm, no murmer Neuro: Gait normal. Extremities: without edema, no deformities, no tremors of outstretched arms Skin: no rashes/ erythema LAB: Component Latest Ref Rng & Units 06/20/2023 TSH 0.270 - 4.200 mIU/L 2.540 T3 79 - 165 ng/dL 114 Free T4 0.9 - 1.7 ng/dL 1.1 THYROID PEROXIDASE ANTIBODY <5.6 IU/mL 13.6 (H) ASSESSMENT/PLAN: Edgar's thyroiditis with Euthyroidism: I discussed that this is a type of autoimmune thyroid disease in which the immune system attacks and destroys the thyroid gland. Edgar's, may in the long run, stop the gland from making enough thyroid hormones for the body to work the way it should. It is the most common thyroid disease in the [place] I also reviewed that we will not be able to predict when the thyroid function will become abnormal and hence suggested checking thyroid labs annually, or sooner if symptoms of hypothyroidism occur which include fatigue, depression, sensitivity to cold, weight gain, forgetfulness, muscle weakness, puffy face, dry skin and hair, constipation, muscle cramps, and increased menstrual flow. Some patients have major swelling of the thyroid gland in the front of the neck, called goiter. Check labs in case of . She is offered to follow up with PCP with annual labs vs with Endocrinology, she prefers following up with PCP and return to clinic if thyroid function is abnormal Medical Decision Making: Problems: Moderate: New problem with uncertain prognosis Data: Unique source(s) for external note(s) reviewed: 1 Unique test result(s) reviewed: 3+ Independent interpretation of test from other physician/QHCP Risk: Low: Low risk from testing/treatment Medical Decision Making Level: 4 - Moderate Danielle Donato MD Endocrinology Associate Staff [facility] Endocrinology and Metabolism [place] [phone] documented in this encounterMarymount Hospital02-27-2024 History of Present illness Narrative* Eliud Peñaloza APRN.[facility] - 06/20/2023 8:37 AM EST Chief Complaint Patient presents with: [facility] Care HPI Pattie Balderas is a 27 year old female who presents here today for Above Complaints.. Also having dizziness Switched from citalopram to Prozac Under a lot of stress at work The last month IBS has worsened primarily constipation at this time with abdominal pain, feeling more anxious, short of breath with ADLs Has noticed increased bleeding with menstrual bleeding Chronic dizziness has been worse, brain fog and memory doesn't feel right. Worse with changing position but also happening all the time. Patient got and lost a sibling in the last year. Past medical history, appointments, medications, allergies reviewed. Previous Medical History PAST MEDICAL HISTORY Diagnosis Date Depression Generalized anxiety disorder IBS (irritable bowel syndrome) Ischemic hepatitis PCOS (polycystic ovarian syndrome) Previous Surgical History PAST SURGICAL HISTORY Procedure Laterality Date L'SCOPE DX W/WO BRUSHINGS/WASHINGS 04/2021 REVISE MEDIAN N/CARPAL TUNNEL SURG Left 06/2011 Family History FAMILY HISTORY Adopted: Yes Patient Allergies ALLERGIES Allergen Reactions Tea Tree Hives Current Medications Current Outpatient Medications on File Prior to Visit Medication Sig lubiprostone (AMITIZA) 24 mcg capsule Take 1 capsule by mouth once daily. FLUoxetine (PROZAC) 40 mg capsule Take 1 capsule by mouth every day FLUoxetine (PROZAC) 40 mg capsule Take 40 mg by mouth once daily. pantoprazole DR (PROTONIX) 40 mg tablet Take 40 mg by mouth every morning. Cetirizine (ZYRTEC) 10 mg cap Take 1 capsule by mouth once daily. lubiprostone (AMITIZA) 8 mcg capsule Take 1 capsule (8 mcg) by mouth daily (Patient not taking: Reported on 06/20/2023) lubiprostone (AMITIZA) 8 mcg capsule Take 1 capsule by mouth once daily. (Patient not taking: Reported on 06/20/2023) MULTI-VITAMIN ORAL Take 1 tablet by mouth once daily. (Patient not taking: Reported on 06/20/2023) No current facility-administered medications on file prior to visit. Social History Social History Tobacco Use Smoking status: Never Smokeless tobacco: Never Vaping Use Vaping Use: Never used Substance Use Topics Alcohol use: Yes Comment: once a year Drug use: Never Review of Symptoms REVIEW OF SYSTEMS PAIN ASSESSMENT: Negative for pain, history of chronic pain, or current treatment for a chronic pain condition. Abdominal pain GENERAL: Fatigue HEENT: No changes in hearing or vision, no nose bleeds or other nasal problems, increase in migraines NECK: Negative for lumps, goiter, pain and significant neck swelling RESPIRATORY: Shortness of breath CARDIOVASCULAR: Decreasing exercise tolerence, Shortness of breath, palpitations GI: Constipation and diarrhea, abdominal pain IBS : No history of dysuria, frequency or incontinence WEB SEARCH EVALUATOR: Negative for abnormal vaginal bleeding, abnormal vaginal discharge MUSCULOSKELETAL: Generalized joint pain and aching SKIN: Negative for lesions, rash, and itching PSYCH: Problems sleeping, having vivid dreams, waking up at night, sleeping more than usual HEMATOLOGY/LYMPHOLOGY: bruising easily ENDOCRINE: Feeling more overheated than usual NEURO: Migraine headaches EXAM: BP 100/60 Pulse 88 Resp 14 Ht 160 cm (5' 3) Wt 65.3 kg (144 lb) LMP 02/16/2023 BMI 25.51 kg/m General Appearance: Well appearing, alert, in no acute distress, well-hydrated, well nourished.. Lungs: Lungs clear to auscultation. No wheezing, rhonchi, rales.. Heart: RRR without murmur, gallop, or rubs. No ectopy. Abdomen: Abdomen soft, tender LLQ. Bowel sounds normal. No masses, organomegaly, Musculoskeletal: No joint swelling, deformity, or tenderness. Peripheral Pulses: Normal, Capillary refill <2secs, strong peripheral pulses. Neurologic: Gait normal. Sensation grossly intact.. Health Maintenance List Hepatitis B Vaccine(1 of 3 - 3-dose series) Never done Hepatitis C Screening Never done HIV Screening Never done Covid-19 Vaccine(3 - 2022- season) due on 12/23/2022 Depression Assessment Never done Pap Testing due on 03/21/2026 DTaP,Tdap,Td Vaccine(2 - Td or Tdap) due on 01/19/2031 Influenza Vaccine Completed HPV Vaccine Aged Out ASSESSMENT/PLAN: 1. Fatigue, unspecified type - ICD9: 780.79, ICD10: R53.83 (primary diagnosis) - TSH BLD - T3 BLD - T4 FREE/FREE THYROX - THYROID PEROXIDASE ANTIBODY BLOOD 2. Iron deficiency anemia, unspecified iron deficiency anemia type - ICD9: 280.9, ICD10: D50.9 - FERRITIN BLD - VITAMIN B12 BLOOD - FOLATE SERUM 3. Dizziness - ICD9: 780.4, ICD10: R42 - COMP METABOLIC PANEL - ECG COMPLETE 4. Abnormal cardiac valve - ICD9: 746.9, ICD10: Q24.8 - ECHO - PERFLUTREN LIPID MICROSPHERES 1.1 MG/ML INJECTION IN NS 10 ML - SODIUM CHLORIDE 0.9 % (FLUSH) INJECTION SYRINGE 5. Encounter for lipid screening for cardiovascular disease - ICD9: V77.91, V81.2, ICD10: Z13.220, Z13.6 - LIPID PANEL, NONFASTING 6. Screening for diabetes mellitus - ICD9: V77.1, ICD10: Z13.1 - HGB A1C E Aravind [employer] Student I have personally seen and examined the patient and performed the medical- decision making components. I have reviewed the Advanced Practice Registered Nurse (LABORER COOK [employer]SE) student's documentation and verified the findings in the note as written. Any additions or changes are noted in bold/italics. Eliud Peñaloza APRN.FABRIZIO documented in this encounterMarymount Hospital02-26-2024 Miscellaneous Notes* Telephone Encounter - Jose Carlos De Paz LPN - 06/19/2023 4:31 PM EST Pt returned call to office. She is scheduled to establish care with [facility] tomorrow and was toldto call office regarding her dizziness. Pt states she has had dizziness, brain fog and shortness ofbreath for the last couple months. She also states her legs feel weak/restless at times. She statesdizziness is not positional, but it can be worse when standing up. She drinks about 100oz/day. Has a history of low bp (100-105/60's per pt). She also notes palpitations that occur with and w/o activity. She has a hx of anxiety but not sure if her symptoms are related to her anxiety or not. She also notes hx of IBS (follows with GI for this.) Recently had labs done and was told she was anemic. Not currently taking an iron supplement. Pt advised to keep appt tomorrow. Advised pt that if symptomsworsen, develops chest pain, etc to go to ER. Jose Carlos De Paz LPN documented in this encounterMarymount Hospital12-08-2023 Miscellaneous Notes* Telephone Encounter - Eufemia Talley - 03/31/2023 4:07 PM EST Spoke with the patient, and she declined a sooner EMG appointment. documented in this encounterMarymount HospitalEvaluation + Plan note Future Appointments Appointment Date:06/18/2021 09:30:00 AM Scheduled Provider:FARIDEH NORTH DO Location:[facility] Appointment Type: OV Future Scheduled Tests Radiology* MRI Brain w/ + w/o Contrast 08/14/20 [facility] Evaluation + Plan note Future Appointments Appointment Date:07/29/2021 08:00:00 AM Scheduled Provider:FARIDEH NORTH DO Location:[facility] Appointment Type:PC OV Future Scheduled Tests Radiology* MRI Brain w/ + w/o Contrast 08/14/20 [facility] Evaluation + Plan note Future Appointments Appointment Date:05/02/2023 10:30:00 AM Scheduled Provider:FARIDEH NORTH DO Location:[facility] Appointment Type:[facility] Evaluation note* Diagnosis Menorrhagia with regular cycle- Primary Excessive or frequent menstruation [facility]* Diagnosis Fatigue, unspecified type- Primary Iron deficiency anemia, unspecified iron deficiency anemia type Dizziness Dizziness and giddiness Abnormal cardiac valve Encounter for lipid screening for cardiovascular disease Screening for lipoid disorders Screening for diabetes mellitus [facility]* Diagnosis Thyroid antibody positive- Primary [facility]* Diagnosis Thyroid antibody positive [facility]* Diagnosis Edgar's disease- Primary Chronic lymphocytic thyroiditis documented in this encounter [facility] noteNo assessment information availableWPremier Health [facility] Work Phone: Evaluation note* Diagnosis Left lower quadrant abdominal pain- Primary Nausea and vomiting, unspecified vomiting type [facility]* Diagnosis Change in bowel habit- Primary documented in this encounter [facility]* Diagnosis Left lower quadrant abdominal pain [facility]* Diagnosis Anxiety with depression- Primary [facility]* Diagnosis Anxiety with depression- Primary [facility]* Diagnosis Anxiety with depression [facility]* Diagnosis Anxiety with depression documented [facility]* Diagnosis Anxiety with depression [facility]* Diagnosis Left lower quadrant abdominal pain Nausea and vomiting, unspecified vomiting type [facility]* Diagnosis Anxiety with depression- Primary [facility]* Diagnosis Anxiety with depression- Primary documented [facility]* Diagnosis Anxiety with depression [facility]* Diagnosis Edgar's disease- Primary Chronic lymphocytic thyroiditis Anxiety with depression Screening for diabetes mellitus Thyroid antibody positive Iron deficiency anemia, unspecified iron deficiency anemia type Encounter for lipid screening for cardiovascular disease Screening for lipoid disorders documented [facility]* Diagnosis Anxiety with depression [facility] Diagnosis Wellness examination- Primary Encounter for screening examination for other mental health and behavioral disorders Anxiety with depression Edgar's disease Chronic lymphocytic thyroiditis Iron deficiency anemia, unspecified iron deficiency anemia type Screening for diabetes mellitus Encounter for lipid screening for cardiovascular disease Screening for lipoid disorders documented [facility]* Diagnosis Anxiety with depression- Primary documented [facility]* Diagnosis Anxiety with depression documented [facility]* Diagnosis Anxiety with depression documented in this encounter [facility] course Narrative No data available for this section [facility] Hospital Discharge instructions No data available for this section [facility] Progress note No data available for this section [facility] [employer] note Author Jacki Jernigan [facility] Note Date/Time November 06, 2024 11:3 5am [facility] [address], [address] [place] [address] OFFICE VISIT Date of Service: 11/06/24 MR#: [id number] Acct: [id number] Name: PATTIE BALDERAS MATEO Rep #: [id number] : 1995 Provider: Dr. Cabrera Jernigan MD Age/Sex: 29/F Location: [facility] Status: Signed Intake Vital Signs 08/06/24 08:50 09/03/24 09:28 09/30/24 15:34 11/06/24 10:59 Height 5 ft 4 in 5 ft 4 in 5 ft 4 in 5 ft 4 in Weight: 161 lb 6 oz BMI 27.6 BP 114/74 Intake Visit Reasons: 26wk ob Exhibition Specialist Required: No Is patient in pain?: No Allergies gluten Allergy (Verified 11/06/24 10:59) GI upset milk Allergy (Verified 11/06/24 10:59) GI upset tea tree Allergy (Verified 11/06/24 10:59) Hives Medications ?Medication ?Instructions ?Recorded ?Confirmed ?Type cetirizine 10 mg capsule (Zyrtec) 10 mg PO DAILY aller gies 10/07/19 11/06/24 History cholecalciferol (vitamin D3) 25 50 mcg PO DAILY supple ment 05/06/21 11/06/24 History mcg (1,000 unit) capsule (Vitamin D3) magnesium 250 mg tablet 250 mg PO DAILY supplement 0 06/18/21 11/06/24 History citalopram 40 mg tablet 40 mg PO DAILY 10/14/2110/22 History buspirone 5 mg tablet 5 mg PO TID 06/21/24 5 History docosahexaenoic acid 200 mg mg PO 06/21/24 11/06/24 Hi story capsule ( DHA) Last Menstrual Period: 05/02/24 Zika: Zika virus screening: Negative : No PFSH PFSH Medical History Ischemic hepatitis Allergic contact dermatitis Transaminitis Intestinal metaplasia of stomach without dysplasia Pyloric ulcer Irritable bowel syndrome with constipation Ovarian cyst Migraine headache Syncope Asthma Surgical History Hx of exploratory laparotomy Hx of colonoscopy with polypectomy 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/hazards: No pets and animals: Yes pets and animals: dog(s) history of recent travel: Yes ([facility] 2023) out of state: Yes out of country: No sexually active: Yes Smoking Status: Never smoker alcohol intake: current alcohol intake frequency: holidays/special occasions only details: Not while substance use type: does not use diet: gluten free and lactose free well-balanced diet: daily or most days caffeine: No eating out: 1-3 times/week during the past year weight has: increased > 10 lbs what type of physical activity do you participate in: walking, yoga and weight training frequency: 1-2 times per week duration: 15-30 minutes/day fredy/faith: [employer]beterian seatbelt use: always do you feel safe at home: Yes additional social history: : 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 OB Visit [facility] Calculator Estimated Delivery Date Method Current WG Current Estimate 02/06/25 LMP (Certain) 26w 6d Other Estimates 02/11/25 Ultrasound #1 26w 1d Expected Delivery Route/Plan Labor Preferences- CB/BF classes: [] labor support person: [] labor intervention preferences: [] pain management options preferred: [] cut cord/dad catch: [] : [] PP control planned: [] discussed possible routes of delivery and associated risks: [] special requests: [] Specific Issue/Plans Covid status: [] Flu vaccine: [] Tdap vaccine: [] Rhogam: [] LARC form signed: [] Problem list reviewed and updated with the most current plan of care details and appropriate orders placed. Relevant counseling for the gestational age provided. Continue routine care and follow up unless otherwise noted in visit notes/problem list details Initial Weight: 148 lb Date -?-?-?-?-?-?-?-?-?-?-?-?- EGA Weight BP Urine Prot -?-?-?-?-?-?-?-?-?-?-?-?- Glucose FHR FuHt Pres Dilation -?-?-?-?-?-?-?-?-?-?-?-?- Effaced St Visit Note 07/12/24 -?-?-?-?-?-?-?-?-?-?-?-?- 10w 1d 148 lb 8 oz (+8 oz) 112/72 -?-?-?-?-?-?--?-?-?-?-?-?- 178 -?-?-?-?-?-?-?-?-?-?-?-?- KW- CRL cons wit h date. declines NIPT. KW- CRL cons with date. decl crissy NIPT. Will need MFM anatomy US for FOB hx of heart issue. 07/24/24 -?-?-?-?-?-?-?-?-?-?-?-?- 11w 6d 148 lb 4 oz (+4 oz) 112/72 Trace -?-?-?-?-?-?-?-?-?-?-?-?- Negative 165 -?-?-?-?-?-?-?-?-?-?-?-?- Sm- no vb crampi ng some palpitations no cp sob 08/06/24 -?-?-?-?-?-?-?-?-?-?-?-?- 13w 5d 148 lb 2 oz (+2 oz) 118/74 Negative -?-?-?-?-?-?-?-?-?-?-?-?- Negative 158 -?-?-?-?-?-?-?-?-?-?-?-?- JV- no lof, vagi nal bleeding, or cramping. has antomy scan ordered. nausea is improved. 09/03/24 -?-?-?-?-?-?-?-?-?-?-?-?- 17w 5d 150 lb 2 oz (+2 lb 2 oz) 120/73 Negative -?-?-?-?-?-?-?-?-?-?-?-?- Negative 145 -?-?-?-?-?-?-?-?-?-?-?-?- SM- no vb crampi ng 09/30/24 -?-?-?-?-?-?-?-?-?-?-?-?- 21w 4d 158 lb 2 oz (+10 lb 2 oz) 114/77 Negative -?-?-?-?-?-?-?-?-?-?-?-?- Negative 150 20 -?-?-?-?-?-?-?-?-?-?-?-?- KW- no vb/crampi ng. some fm. reviewed scans. 11/06/24 -?-?-?-?-?-?-?-?-?-?-?-?- 26w 6d 161 lb 6 oz (+13 lb 6 oz) 114/74 Negative -?-?-?-?-?-?-?-?-?-?-?-?- Negative 145 26 -?-?-?-?-?-?-?-?-?-?-?-?- SM- no vb lof go od fm no reuglar ctx ACOG First Trimester First Trimester: Discussed Second Trimester Second Trimester: Signs and Symptoms of Labor, Selecting a care provider, Reproductive Life Planning & Contreception, Care Planning, Depression/Anxiety and Intimate Partner Violence; Discussed Tobacco Cessation Third Trimester Third Trimester: Pain Management Plans, Labor support person(s), Immediate Larc, Signs and Symptoms of Preeclampsia, Feeding No , [place] Education and Family Medical Leave or Disability Forms Results POC Urinalysis 2 Dip (Clinic) Office Urine Glucose Negative Last Edit by Sherry Sheikh on 11/06/24 11:08 Office Urine Protein Negative Last Edit by Sherry Sheikh on 11/06/24 11:08 Coding Level of Care Code OB Routine Diagnoses Family history of congenital septal defect Z82.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 Rh negative status during O26.899; Z67.91 Supervision of high-risk O09.90 26 weeks gestation of Z3A.26 Weeks of gestation: 26 weeks 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 Ischemic hepatitis K72.00 Anxiety and depression F41.9; F32.A PCOS (polycystic ovarian syndrome) E28.2 Irritable bowel syndrome with constipation K58.1 Endometriosis determined by laparoscopy N80.9 Assessment and Plan Assessment and Plan (1) Family history of congenital septal defect: Status: Acute Comment: Echo by Ped Card [id number] (2) Circumvallate placenta: Status: Acute Comment: Growth US Q4 weeks @ 28 weeks (3) Rh negative status during : Status: Acute Comment: O-, Rhogam @ 28wks & as needed (4) Supervision of high-risk : Status: Acute Comment: PRR, RAHDA 02/06/25, boy secret name : Mandeep (has septal defect (5) : Status: Acute Qualifiers: Weeks of gestation: 26 weeks Qualified Code(s): Z3A.26 - 26 weeks gestation of Comment: Discussed genetic/carrier testing - nl anatomy. (6) Adopted: Status: Acute Comment: Unknown family medical hx (7) Edgar's disease: Status: Acute (8) Ischemic hepatitis: Status: Acute (9) Anxiety and depression: Status: Acute Comment: On Prozac & Just started counseling (10) PCOS (polycystic ovarian syndrome): Status: Acute (11) Irritable bowel syndrome with constipation: Status: Acute (12) Endometriosis determined by laparoscopy: Status: Acute Orders: Orders POC Urinalysis 2 Dip (Clinic) Today O09.90 - Supervision of high risk , unspecified, unspecified trimester CBC W/Diff, Automated Today O09.90 - Supervision of high risk , unspecified, unspecified trimester Glucose Challenge Gest 1H 50g Today O09.90 - Supervision of high risk , unspecified, unspecified trimester, Z13.1 - Encounter for screening for diabetes mellitus HIV Today O09.90 - Supervision of high risk , unspecified, unspecified trimester Syphilis Antibodies Today O09.90 - Supervision of high risk , unspecified, unspecified trimester Type & Screen Today O09.90 - Supervision of high risk , unspecified, unspecified trimester, O26.899 - Other specified related conditions, unspecified trimester, Z67.91 - Unspecified blood type, Rh negative 11/06/24 1137 <Electronically signed by Jacki fierro MD> Date _ Jacki Jernigan MD Cosigner Signature: Date (if applicable) CC: ~ [facility] Work Phone: Progress note Author Elke Nuñez [facility] Note Date/Time December 04, 2024 10 :41am [facility] [address], [address] [place] [address] OFFICE VISIT Date of Service: 12/04/24 MR#: [id number] Acct: [id number] Name: PATTIE BALDERAS Rep #: [id number] : 1995 Provider: Dr. Jami Voss DO Age/Sex: 29/F Location: [facility] Status: Signed Intake Vital Signs 11/06/24 10:59 11/20/24 08:47 12/04/24 10:06 12/04/24 10:07 Height 5 ft 4 in 5 ft 4 in 5 ft 4 in 5 ft 4 in Weight: 168 lb BMI 28.8 BP 107/73 Intake Visit Reasons: 30 wk ob Exhibition Specialist Required: No Is patient in pain?: No Allergies gluten Allergy (Verified 12/04/24 10:06) GI upset milk Allergy (Verified 12/04/24 10:06) GI upset tea tree Allergy (Verified 12/04/24 10:06) Hives Medications ?Medication ?Instructions ?Recorded ?Confirmed ?Type cetirizine 10 mg capsule (Zyrtec) 10 mg PO DAILY aller gies 10/07/19 12/04/24 History cholecalciferol (vitamin D3) 25 50 mcg PO DAILY supple ment 05/06/21 12/04/24 History mcg (1,000 unit) capsule (Vitamin D3) magnesium 250 mg tablet 250 mg PO DAILY supplement 0 06/18/21 12/04/24 History citalopram 40 mg tablet 40 mg PO DAILY 10/14/2111/22 History buspirone 5 mg tablet 5 mg PO TID 06/21/24 5 History docosahexaenoic acid 200 mg mg PO 06/21/24 12/04/24 Hi story capsule ( DHA) Last Menstrual Period: 05/02/24 Zika: Zika virus screening: Negative : No PFSH PFSH Medical History Ischemic hepatitis Allergic contact dermatitis Transaminitis Intestinal metaplasia of stomach without dysplasia Pyloric ulcer Irritable bowel syndrome with constipation Ovarian cyst Migraine headache Syncope Asthma Surgical History Hx of exploratory laparotomy Hx of colonoscopy with polypectomy 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: No pets and animals: Yes pets and animals: dog(s) history of recent travel: Yes ([facility] 2023) out of state: Yes out of country: No sexually active: Yes Smoking Status: Never smoker alcohol intake: current alcohol intake frequency: holidays/special occasions only details: Not while substance use type: does not use diet: gluten free and lactose free well-balanced diet: daily or most days caffeine: No eating out: 1-3 times/week during the past year weight has: increased > 10 lbs what type of physical activity do you participate in: walking, yoga and weight training frequency: 1-2 times per week duration: 15-30 minutes/day fredy/faith: Presybeterian seatbelt use: always do you feel safe at home: Yes additional social history: : 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 OB Visit RADHA Calculator Estimated Delivery Date Method Current WG Current Estimate 02/06/25 LMP (Certain) 30w 6d Other Estimates 02/11/25 Ultrasound #1 30w 1d Expected Delivery Route/Plan Labor Preferences- CB/BF classes: yes labor support person: Mandeep labor intervention preferences: [] pain management options preferred: limited cut cord/dad catch: no : yes PP control planned: discussed discussed possible routes of delivery and associated risks: [] special requests: [] Specific Issue/Plans Covid status: [] Flu vaccine: [] Tdap vaccine: [] Rhogam: given 11/20/24 LARC form signed: yes Problem list reviewed and updated with the most current plan of care details and appropriate orders placed. Relevant counseling for the gestational age provided. Continue routine care and follow up unless otherwise noted in visit notes/problem list details Initial Weight: 148 lb Date -?-?-?-?-?-?-?-?-?-?-?-?- EGA Weight BP Urine Prot -?-?-?-?-?-?-?-?-?-?-?-?- Glucose FHR FuHt Pres Dilation -?-?-?-?-?-?-?-?-?-?-?-?- Effaced St Visit Note 07/12/24 -?-?-?-?-?-?-?-?-?-?-?-?- 10w 1d 148 lb 8 oz (+8 oz) 112/72 -?-?-?-?-?-?-?-?-?-?-?-?- 178 -?-?-?-?-?-?-?-?-?-?-?-?- KW- CRL cons wit h date. declines NIPT. KW- CRL cons with date. decl crissy NIPT. Will need MFM anatomy US for FOB hx of heart issue. 07/24/24 -?-?-?-?-?-?-?-?-?-?-?-?- 11w 6d 148 lb 4 oz (+4 oz) 112/72 Trace -?-?-?-?-?-?-?--?-?-?-?-?- Negative 165 -?-?-?-?-?-?-?-?-?-?-?-?- Sm- no vb crampi ng some palpitations no cp sob 08/06/24 -?-?-?-?-?-?-?-?-?-?-?-?- 13w 5d 148 lb 2 oz (+2 oz) 118/74 Negative -?-?-?-?-?-?-?-?-?-?-?-?- Negative 158 -?-?-?-?-?-?-?-?-?-?-?-?- JV- no lof, vagi nal bleeding, or cramping. has antomy scan ordered. nausea is improved. 09/03/24 -?-?-?-?-?-?-?-?-?-?-?-?- 17w 5d 150 lb 2 oz (+2 lb 2 oz) 120/73 Negative -?-?-?-?-?-?-?-?-?-?-?-?- Negative 145 -?-?-?-?-?-?-?-?-?-?-?-?- SM- no vb richiempi ng 09/30/24 -?-?-?-?-?-?-?-?-?-?-?-?- 21w 4d 158 lb 2 oz (+10 lb 2 oz) 114/77 Negative -?-?-?-?-?-?-?-?-?-?-?-?- Negative 150 20 -?-?-?-?-?-?-?-?-?-?-?-?- KW- no vb/crampi ng. some fm. reviewed scans. 11/06/24 -?-?-?-?-?-?-?-?-?-?-?-?- 26w 6d 161 lb 6 oz (+13 lb 6 oz) 114/74 Negative -?-?-?-?-?-?-?-?-?-?-?-?- Negative 145 26 -?-?-?-?-?-?-?-?-?-?-?-?- SM- no vb lof go od fm no reuglar ctx 11/20/24 -?-?-?-?-?-?-?-?-?-?-?-?- 28w 6d 165 lb 4 oz (+17 lb 4 oz) 110/70 Negative -?-?-?-?-?-?-?-?-?-?-?-?- Negative 155 29 -?-?-?-?-?-?-?-?-?-?-?-?- MH-No VB, LOF. G ood FM. Larc, rhogam, 28 wk labs pending 12/04/24 -?-?-?-?-?-?-?-?-?-?-?-?- 30w 6d 168 lb (+20 lb) 107/73 Negative -?-?-?-?-?-?-?-?-?-?-?-?- Negative 135 32 -?-?-?-?-?-?-?-?-?-?-?-?- JV- passed the 3 hr gtt. needs tsh today ACOG First Trimester First Trimester: Discussed Second Trimester Second Trimester: Signs and Symptoms of Labor, Selecting a care provider, Reproductive Life Planning & Contreception, Care Planning, Depression/Anxiety and Intimate Partner Violence; Discussed Tobacco Cessation Third Trimester Third Trimester: Pain Management Plans, Labor support person(s), Immediate Larc, Circumcision preference, Signs and Symptoms of Preeclampsia, Feeding No , Education, Family Medical Leave or Disability Forms and Intimate Partner Violence Results POC Urinalysis 2 Dip (Clinic) Office Urine Glucose Negative Last Edit by Rocio Dominguez on 12/04/24 10: 32 Office Urine Protein Negative Last Edit by Rocio Dominguez on 12/04/24 10: 32 Immunizations Adacel(Tdap Adolesn/Adult)(PF) 2 Lf-(2.5-5-3-5)-5 Lf/0.5 mL IM syringe Performing Provider: Elke Voss DO Performing Location: [facility] Administered by: Rocio Dominguez on 12/04/24 10:21 Dose Route Admin Location Dispensed Lot Number Expiration Date NDC [employer] Tender 0.5 mL IM Left Deltoid 0.5 mL [id number] 12/22/26 82101-217-69 [employer] VIS Given Date VIS Provided VIS Publication Date 12/04/24 Single Vaccine 24 Eligibility Eligibility Date Funding Source Not Applicable Coding Level of Care Code OB Routine Diagnoses Abnormal glucose affecting O99.810 Family history of congenital septal defect Z82.79 Circumvallate placenta in third trimester O43.113 Trimester: third trimester Rh negative status during in third trimester O26.893; Z67.91 Trimester: third trimester Supervision of high risk in third trimester O09.93 Trimester: third trimester 30 weeks gestation of Z3A.30 Weeks of gestation: 30 weeks 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 11/20:28w-69% EFW. 63% AC (4) Rh negative status during : Status: Acute Qualifiers: Trimester: third trimester Qualified Code(s): O26.893 - Other specified related conditions, third trimester; Z67.91 - Unspecified blood type, Rh negative Comment: O-, Rhogam @ 28wks & as needed. given 11/20/24 (5) Supervision of high-risk : Status: Acute Qualifiers: Trimester: third trimester Qualified Code(s): O09.93 - Supervision of high risk , unspecified, third trimester Comment: PRR, RADHA 02/06/25, boy secret name : Mandeep (has septal defect (6) : Status: Acute Qualifiers: Weeks of gestation: 30 weeks Qualified Code(s): Z3A.30 - 30 weeks gestation of Comment: Discussed genetic/carrier testing - nl anatomy. (7) Adopted: Status: Acute Comment: Unknown family medical hx (8) Edgar's disease: Status: Acute Comment: tsh levels every trimester and 6 week post (9) Ischemic hepatitis: Status: Acute (10) Anxiety and depression: Status: Acute Comment: On Prozac & Just started counseling (11) PCOS (polycystic ovarian syndrome): Status: Acute (12) Irritable bowel syndrome with constipation: Status: Acute (13) Endometriosis determined by laparoscopy: Status: Acute Orders: Orders POC Urinalysis 2 Dip (Clinic) Today Tdap Immunization Today Z23 - Encounter for immunization Thyroid Stim Hormone (TSH) Today E06.3 - Autoimmune thyroiditis 12/04/24 1041 <Electronically signed by Elke Perez DO> Date _ Elke Dax Ndiaye Signature: Date (if applicable) CC: ~ [facility] Work Phone: Progress note Author Debra Montalvo [facility] Note Date/Time January 01, 2025 10:19am [facility] [address], [address] [place] [address] OFFICE VISIT Date of Service: 01/01/25 MR#: [id number] Acct: [id number] Name: PATTIE BALDERAS Rep #: [id number] : 1995 Provider: LITO Montalvo Age/Sex: 29/F Location: [facility] Status: Signed Intake Vital Signs 11/06/24 10:59 12/18/24 09:42 01/01/25 09:52 Height 5 ft 4 in 5 ft 4 in 5 ft 4 in Weight: 177 lb 6 oz BMI 30.4 BP 126/80 H Intake Visit Reasons: 35wk ob Chief Complaint: 35wk OB Exhibition Specialist Required: No Is patient in pain?: No Allergies gluten Allergy (Verified 01/01/25 09:50) GI upset milk Allergy (Verified 01/01/25 09:50) GI upset tea tree Allergy (Verified 01/01/25 09:50) Hives Medications ?Medication ?Instructions ?Recorded ?Confirmed ?Type cetirizine 10 mg capsule (Zyrtec) 10 mg PO DAILY aller gies 10/07/19 01/01/25 History cholecalciferol (vitamin D3) 25 50 mcg PO DAILY supple ment 05/06/21 01/01/25 History mcg (1,000 unit) capsule (Vitamin D3) magnesium 250 mg tablet 250 mg PO DAILY supplement 0 06/18/21 01/01/25 History citalopram 40 mg tablet 40 mg PO DAILY 10/14/2112/23 History buspirone 5 mg tablet 5 mg PO TID 06/21/24 5 History docosahexaenoic acid 200 mg mg PO 06/21/24 01/01/25 Hi story capsule ( DHA) ferrous sulfate 325 mg (65 mg 325 mg PO QDAY 12/04/24 01/01/25 History iron) tablet Last Menstrual Period: 05/02/24 : No PFSH PFSH Medical History Ischemic hepatitis Allergic contact dermatitis Transaminitis Intestinal metaplasia of stomach without dysplasia Pyloric ulcer Irritable bowel syndrome with constipation Ovarian cyst Migraine headache Syncope Asthma Surgical History Hx of exploratory laparotomy Hx of colonoscopy with polypectomy 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: No pets and animals: Yes pets and animals: dog(s) history of recent travel: Yes ([facility]2023) out of state: Yes out of country: No sexually active: Yes Smoking Status: Never smoker alcohol intake: current alcohol intake frequency: holidays/special occasions only details: Not while substance use type: does not use diet: gluten free and lactose free well-balanced diet: daily or most days caffeine: No eating out: 1-3 times/week during the past year weight has: increased > 10 lbs what type of physical activity do you participate in: walking, yoga and weight training frequency: 1-2 times per week duration: 15-30 minutes/day fredy/faith: Presybeterian seatbelt use: always do you feel safe at home: Yes additional social history: : 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 OB Visit RADHA Calculator Estimated Delivery Date Method Current WG Current Estimate 02/06/25 LMP (Certain) 34w 6d Other Estimates 02/11/25 Ultrasound #1 34w 1d Expected Delivery Route/Plan Labor Preferences- CB/BF classes: yes labor support person: Mandeep labor intervention preferences: [] pain management options preferred: limited cut cord/dad catch: no : yes PP control planned: discussed discussed possible routes of delivery and associated risks: [] special requests: [] Specific Issue/Plans Covid status: [] Flu vaccine: [] Tdap vaccine: given Rhogam: given 11/20/24 LARC form signed: yes Problem list reviewed and updated with the most current plan of care details and appropriate orders placed. Relevant counseling for the gestational age provided. Continue routine care and follow up unless otherwise noted in visit notes/problem list details Initial Weight: 148 lb Date -?-?-?-?-?-?-?-?-?-?-?-?- EGA Weight BP Urine Prot -?-?-?-?-?-?-?-?-?-?--?-?- Glucose FHR FuHt Pres Dilation -?-?-?-?-?-?-?-?-?-?-?-?- Effaced St Visit Note 07/12/24 -?-?-?-?-?-?-?-?-?-?-?-?- 10w 1d 148 lb 8 oz (+8 oz) 112/72 -?-?-?-?-?-?-?-?-?-?-?-?- 178 -?-?-?-?-?-?-?-?-?-?-?-?- KW- CRL cons wit h date. declines NIPT. KW- CRL cons with date. decl crissy NIPT. Will need MFM anatomy US for FOB hx of heart issue. 07/24/24 -?-?-?-?-?-?-?-?-?-?-?-?- 11w 6d 148 lb 4 oz (+4 oz) 112/72 Trace -?-?-?-?-?-?-?-?-?-?-?-?- Negative 165 -?-?-?-?-?-?-?-?-?-?-?-?- Sm- no vb crampi ng some palpitations no cp sob 08/06/24 -?-?-?-?-?-?-?-?-?-?-?-?- 13w 5d 148 lb 2 oz (+2 oz) 118/74 Negative -?-?-?-?-?-?-?-?-?-?-?-?- Negative 158 -?-?-?-?-?-?-?-?-?-?-?-?- JV- no lof, vagi nal bleeding, or cramping. has antomy scan ordered. nausea is improved. 09/03/24 -?-?-?-?-?-?-?-?-?-?-?-?- 17w 5d 150 lb 2 oz (+2 lb 2 oz) 120/73 Negative -?-?-?-?-?-?-?-?-?-?-?-?- Negative 145 -?-?-?-?-?-?-?-?-?-?-?-?- SM- no vb crampi ng 09/30/24 -?-?-?-?-?-?-?-?-?-?-?-?- 21w 4d 158 lb 2 oz (+10 lb 2 oz) 114/77 Negative -?-?-?-?-?-?-?-?-?-?-?-?- Negative 150 20 -?-?-?-?-?-?-?-?-?-?-?-?- KW- no vb/crampi ng. some fm. reviewed scans. 11/06/24 -?-?-?-?-?-?-?-?-?-?-?-?- 26w 6d 161 lb 6 oz (+13 lb 6 oz) 114/74 Negative -?-?-?-?-?-?-?-?-?-?-?-?- Negative 145 26 -?-?-?-?-?-?-?-?-?-?-?-?- SM- no vb lof go od fm no reuglar ctx 11/20/24 -?-?-?-?-?-?-?-?-?-?-?-?- 28w 6d 165 lb 4 oz (+17 lb 4 oz) 110/70 Negative -?-?-?-?-?-?-?-?-?-?-?-?- Negative 155 29 -?-?-?-?-?-?-?-?-?-?-?-?- MH-No VB, LOF. G ood FM. Larc, rhogam, 28 wk labs pending 12/04/24 -?-?-?-?-?-?-?-?-?-?-?-?- 30w 6d 168 lb (+20 lb) 107/73 Negative -?-?-?-?-?-?-?-?-?--?-?-?- Negative 135 32 -?-?-?-?-?-?-?-?-?-?-?-?- JV- passed the 3 hr gtt. needs tsh today 12/18/24 -?-?-?-?-?-?-?-?-?-?-?-?- 32w 6d 173 lb 5 oz (+25 lb 5 oz) 119/80 Negative -?-?-?-?-?-?-?-?-?-?-?-?- Negative 142 33 -?-?-?-?-?-?-?-?-?-?-?-?- -No VB, LOF. G ood FM. Growth US today 01/01/25 -?-?-?-?-?-?-?-?-?-?-?-?- 34w 6d 177 lb 6 oz (+29 lb 6 oz) 126/80 Negative -?-?-?-?-?-?-?-?-?-?-?-?- Negative 135 36 -?-?-?-?-?-?-?-?-?-?-?-?- - no vb/lof/ct [place] good fm. discussed GBS next visit. ACOG First Trimester First Trimester: Discussed Second Trimester Second Trimester: Signs and Symptoms of Labor, Selecting a care provider, Reproductive Life Planning & Contreception, Care Planning, Depression/Anxiety and Intimate Partner Violence; Discussed Tobacco Cessation Third Trimester Third Trimester: Pain Management Plans, Labor support person(s), Immediate Larc, Circumcision preference, Signs and Symptoms of Preeclampsia, Infant Feeding No , Education, Family Medical Leave or Disability Forms and Intimate Partner Violence ROS Const Reports system reviewed and no additional complaints, except as documented Eyes Reports system reviewed and no additional complaints, except as documented ENT Reports system reviewed and no additional complaints, except as documented Card Reports system reviewed and no additional complaints, except as documented Resp Reports system reviewed and no additional complaints, except as documented GI Reports system reviewed and no additional complaints, except as documented, Denies nausea and Denies vomiting Reports system reviewed and no additional complaints, except as documented Musc Reports system reviewed and no additional complaints, except as documented Skin/Breast Reports system reviewed and no additional complaints, except as documented Neuro Yes system reviewed and no additional complaints, except as documented Psych Reports system reviewed and no additional complaints, except as documented Endo Reports system reviewed and no additional complaints, except as documented Nik/Lymph Reports system reviewed and no additional complaints, except as documented Aller/Immun Reports system reviewed and no additional complaints, except as documented Exam Const General: cooperative, healthy appearing and no acute distress Orientation: alert, awake and oriented x3 Neck Neck: normal visual inspection and full ROM Resp Effort & Inspection: normal respiratory effort, able to speak in complete sentences and symmetric chest movement GI Inspection: normal to inspection Palpation: soft and other Other: gravid Skin General: no rashes or lesions noted Neuro General: patient alert, patient awake and patient oriented x3 Cognition: normal cognition Speech: speech normal Gait: normal gait Motor: muscle tone normal throughout Extrem General: normal to inspection and full ROM Psych Appearance: grossly normal Mental Status: mental status grossly normal Mood: congruent mood Affect: normal affect Speech and Movement: speech and movement normal Attitude: cooperative Thought Process: normal Thought Content: normal Judgment: judgment good Results POC Urinalysis 2 Dip (Clinic) Office Urine Glucose Negative Last Edit by Camille Broussard on 01/01/25 09:58 Office Urine Protein Negative Last Edit by Camille Broussard on 01/01/25 09:58 Coding Level of Care Code OB Routine Diagnoses Abnormal glucose affecting O99.810 Family history of congenital septal defect Z82.79 Circumvallate placenta in third trimester O43.113 Trimester: third trimester Rh negative status during in third trimester O26.893; Z67.91 Trimester: third trimester 34 weeks gestation of Z3A.34 Weeks of gestation: 34 weeks Supervision of high risk in third trimester O09.93 Trimester: third trimester 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 Ischemic hepatitis K72.00 Anxiety and depression F41.9; F32.A PCOS (polycystic ovarian syndrome) E28.2 Irritable bowel syndrome with constipation K58.1 Endometriosis determined by laparoscopy N80.9 Assessment and Plan Assessment and Plan (1) Abnormal glucose affecting : Status: Acute Comment: normal 3 hr GTT (2) Family history of congenital septal defect: Status: Acute Comment: Echo by Ped Card [id number] (3) Circumvallate placenta: Status: Acute Qualifiers: Trimester: third trimester Qualified Code(s): O43.113 - Circumvallate placenta, third trimester Comment: Growth US Q4 weeks @ 28 weeks. 11/20:28w-69% EFW. 63% AC (4) Rh negative status during : Status: Acute Qualifiers: Trimester: third trimester Qualified Code(s): O26.893 - Other specified related conditions, third trimester; Z67.91 - Unspecified blood type, Rh negative Comment: O-, Rhogam @ 28wks & as needed. given 11/20/24 (5) : Status: Acute Qualifiers: Weeks of gestation: 34 weeks Qualified Code(s): Z3A.34 - 34 weeks gestation of Comment: Discussed genetic/carrier testing - nl anatomy. (6) Supervision of high-risk : Status: Acute Qualifiers: Trimester: third trimester Qualified Code(s): O09.93 - Supervision of high risk , unspecified, third trimester Comment: PRR, RADHA 02/06/25, boy secret name : Mandeep (has septal defect (7) Edgar's disease: Status: Acute Comment: tsh levels every trimester and 6 week post (8) Adopted: Status: Acute Comment: Unknown family medical hx (9) Ischemic hepatitis: Status: Acute (10) Anxiety and depression: Status: Acute Comment: On Prozac & Just started counseling (11) PCOS (polycystic ovarian syndrome): Status: Acute (12) Irritable bowel syndrome with constipation: Status: Acute (13) Endometriosis determined by laparoscopy: Status: Acute Orders: Orders POC Urinalysis 2 Dip (Clinic) Today Plan Details Additional Comments: ACOG trimester education reviewed and updated. see problem list details for updated plan management information and see below for orders placed at this visit. GA appropriate handout given. 01/01/25 1019 <Electronically signed by Debra roberts CNM> Date _ Debra Montalvo CNM Cosigner Signature: Date (if applicable) CC: ~ [employer] Work Phone: Reason for referral (narrative)* Outpatient Procedure (Routine) - Authorized Specialty Diagnoses / Procedures Referred By Contac t Referred To Contact [facility] [place] Diagnoses Abnormal cardiac valve Procedures ECHO ECHO TTHRC R-T 2D W/WOM-MODE COMPL SPEC&COLR D Eliud Peñaloza APRN.COLD ROLL CATCHER [address] [place] [address] [facility] [address] [address] Referral ID Status Reason Start Date Expiration Date Visits Requested Visits Authorized [id number] Authorized Auto-Generat ed Referral 06/20/2023 06/19/2024 1 1 * Outpatient Procedure (Routine) - Authorized Specialty Diagnoses / Procedures Referred By Contac t Referred To Contact [facility] [place] Diagnoses Dizziness Procedures ECG COMPLETE ECG ROUTINE ECG W/LEAST 12 LDS W/I&R Eliud Peñaloza APRN.CNP [address] [place] [address] [facility] [address] [address] Referral ID Status Reason Start Date Expiration Date Visits Requested Visits Authorized [id number] Authorized Auto-Generat ed Referral 06/20/2023 06/19/2024 [address] [facility] for referral (narrative)* Diagnostic Procedure Only (Urgent) - Closed Specialty Diagnoses / Procedures Referred By Contac t Referred To Contact XR IMAGING Diagnoses Left lower quadrant abdominal pain Nausea and vomiting, unspecified vomiting type Procedures XR ABDOMEN 1V SUPINE RADIOLOGIC EXAM ABDOMEN 1 VIEW Eliud Peñaloza APRN.CNP [address] [place] [address] [place] [address] Referral ID Status Reason Start Date Expiration Date V isits Requested Visits Authorized [id number] Closed Auto-Generate d Referral 07/11/2023 08/09/2024 1 1 * MRI/CT (Urgent) - Closed Specialty Diagnoses / Procedures Referred By Contac t Referred To Contact CT IMAGING Diagnoses Left lower quadrant abdominal pain Procedures CT ABD/PEL W IVCON CT ABD & PELVIS W/CONTRAST Eliud Peñaloza APRN.COLD ROLL CATCHER [address] [place] [address] [address] Referral ID Status Reason Start Date Expiration Date V isits Requested Visits Authorized [id number] Closed Auto-Generat ed Referral Patient Cleared - Admin/Chairm an/Director advise to proceed or did not respond 07/11/2023 07/11/2023 [address] [facility] for referral (narrative)* Diagnostic Procedure Only (Urgent) - Closed Specialty Diagnoses / Procedures Referred By Contac t Referred To Contact XR IMAGING Diagnoses Left lower quadrant abdominal pain Nausea and vomiting, unspecified vomiting type Procedures XR ABDOMEN 1V SUPINE RADIOLOGIC EXAM ABDOMEN 1 VIEW Eliud Peñaloza APRN.CNP [address] [place] [address] [place] [address] Referral ID Status Reason Start Date Expiration Date V isits Requested Visits Authorized [id number] Closed Auto-Generate d Referral 07/11/2023 08/09/2024 1 [facility]No reason for referral information availableWPremier [facility] Work Phone: Reason for visit Narrative* Diagnostic Procedure Only (Urgent) - Closed Specialty Diagnoses / Procedures Referred By Ilia t Referred To Contact XR IMAGING Diagnoses Left lower quadrant abdominal pain Nausea and vomiting, unspecified vomiting type Procedures XR ABDOMEN 1V SUPINE RADIOLOGIC EXAM ABDOMEN 1 VIEW Eliud Peñaloza APRN.CNP [address] [place] [address] [place] [address] Referral ID Status Reason Start Date Expiration Date V isits Requested Visits Authorized [id number] Closed Auto-Generate d Referral 07/11/2023 08/09/2024 1 1 [facility] Summary Purpose Family History No Family History Records Found Advance Directives No Advanced Directives Records Found Advance Directive Response Recorded Date/ Time Living Will No July 06, 2023 8:33am Power of Flight Inspector No July 05 8:33am Reason for Referral Specialty Diagnoses / Procedures Referred By Ilia matthews Referred To Contact CT IMAGING Diagnoses Left lower quadrant abdominal pain Procedures CT ABD/PEL W IVCON CT ABD & PELVIS W/CONTRAST Eliud Peñaloza APRN.CNP [address] [place] [address] [address] Referral ID Status Reason Start Date Expiration Date V isits Requested Visits Authorized [id number] Closed Auto-Generat ed Referral Patient Cleared - Admin/Chairm an/Director advise to proceed or did not respond 07/11/2023 07/11/2023 2 2 Specialty Diagnoses / Procedures Referred By Ilia t Referred To Contact Gastroenterology Diagnoses Change in bowel habit Procedures CONSULT TO GASTROENTEROLOGY Eliud Peañloza APRN.CNP [address] [place] [address] Friend, Dick Dorman, DO [address] [address] Referral ID Status Reason Start Date Expiration Date Visits Requested Visits Authorized [id number] Ref Not Required PCP Requested Referral 07/11/2023 2024 1 1 Specialty Diagnoses / Procedures Referred By Contac t Referred To Contact Endocrinology Diagnoses Thyroid antibody positive Procedures CONSULT TO ENDOCRINOLOGY OFFICE/OUTPATIENT [facility] 60 MINUTES Eliud Peñaloza, MARY.COLD ROLL CATCHER [address] [place] [address] Danielle Donato MD [address] [facility] [place] [address] Referral ID Status Reason Start Date Expiration Date Visits Requested Visits Authorized [id number] Authorized PCP Requested Referral 06/22/2023 06/21/2024 1 1 Chief Complaint and Reason for Visit Chief Complaint ABD Chief Complaint Admit Date Amb Documentation June 21, 2024 9:43am New OB, LMP 05/02, RADHA 02/06July 12, 2 025 8:47am Reason for Visit Admit Date Adopted July 12, 2024 8:4 7am Anxiety and depression July 12, 2024 8:47am Endometriosis determined by laparoscopy July 12, 2024 8:47am Edgar's disease July 12, 2024 8:4 7am Irritable bowel syndrome with constipati on July 12, 2024 8:47am Ischemic hepatitis July 12, 2024 8:4 7am PCOS (polycystic ovarian syndrome) July 12, 2024 8:47am July 12, 2024 8:4 7am Rh negative status during Daniel 2024 8:47am Supervision of high-risk July 12, 2024 8:47am Chief Complaint Admit Date Amb Documentation June 21, 2024 9:43am New OB, LMP 05/02, RADHA 02/06July 12, 2 025 8:47am OB, palpitations July 24, 2024 8:49 am PALPITATIONS IN July 29 8:53am PALPS July 29, 2024 8:58 am Reason for Visit Admit Date Adopted July 12, 2024 8:4 7am Anxiety and depression July 12, 2024 8:47am Endometriosis determined by laparoscopy July 12, 2024 8:47am Edgar's disease July 12, 2024 8:4 7am Irritable bowel syndrome with constipati on July 12, 2024 8:47am Ischemic hepatitis July 12, 2024 8:4 7am PCOS (polycystic ovarian syndrome) July 12, 2024 8:47am July 12, 2024 8:4 7am Rh negative status during Daniel 2024 8:47am Supervision of high-risk July 12, 2024 8:47am Adopted July 24, 2024 8:49 am Anxiety and depression July 24, 2024 8 :49am Endometriosis determined by laparoscopy July 24, 2024 8:49am Edgar's disease July 24, 2024 8:49 am Irritable bowel syndrome with constipati on July 24, 2024 8:49am Ischemic hepatitis July 24, 2024 8:49 am Palpitations July 24, 2024 8:49 am PCOS (polycystic ovarian syndrome) July 24, 2024 8:49am July 24, 2024 8:49 am Rh negative status during Apri l 2024 8:49am Supervision of high-risk July 24, 2024 8:49am Chief Complaint Admit Date Amb Documentation June 21, 2024 9:43am New OB, LMP /, RADHA 02/06July 12, 2 025 8:47am OB, palpitations July 24, 2024 8:49 am PALPITATIONS IN July 29 8:53am PALPS July 29, 2024 8:58 am 13wk ob August 06, 2024 8:4 6am 17wk ob September 03, 2024 9:26a m Reason for Visit Admit Date Adopted July 12, 2024 8:4 7am Anxiety and depression July 12, 2024 8:47am Endometriosis determined by laparoscopy July 12, 2024 8:47am Edgar's disease July 12, 2024 8:4 7am Irritable bowel syndrome with constipati on July 12, 2024 8:47am Ischemic hepatitis July 12, 2024 8:4 7am PCOS (polycystic ovarian syndrome) July 12, 2024 8:47am July 12, 2024 8:4 7am Rh negative status during Daniel h 2024 8:47am Supervision of high-risk July 12, 2024 8:47am Adopted July 24, 2024 8:49 am Anxiety and depression July 24, 2024 8 :49am Endometriosis determined by laparoscopy July 24, 2024 8:49am Edgar's disease July 24, 2024 8:49 am Irritable bowel syndrome with constipati on July 24, 2024 8:49am Ischemic hepatitis July 24, 2024 8:49 am Palpitations July 24, 2024 8:49 am PCOS (polycystic ovarian syndrome) July 24, 2024 8:49am July 24, 2024 8:49 am Rh negative status during Apr l 2024 8:49am Supervision of high-risk July 24, 2024 8:49am Adopted August 06, 2024 8:4 6am Anxiety and depression August 06, 2024 8:46am Endometriosis determined by laparoscopy August 06, 2024 8:46am Edgar's disease August 06, 2024 8:4 6am Irritable bowel syndrome with constipati on August 06, 2024 8:46am Ischemic hepatitis August 06, 2024 8:4 6am Palpitations August 06, 2024 8:4 6am PCOS (polycystic ovarian syndrome) August 06, 2024 8:46am August 06, 2024 8:4 6am Rh negative status during Apri l 2024 8:46am Supervision of high-risk August 06, 2024 8:46am Adopted September 03, 2024 9:26a m Anxiety and depression September 03, 2024 9: 26am Endometriosis determined by laparoscopy September 03, 2024 9:26am Edgar's disease September 03, 2024 9:26a m Irritable bowel syndrome with constipati on September 03, 2024 9:26am Ischemic hepatitis September 03, 2024 9:26a m Palpitations September 03, 2024 9:26a m PCOS (polycystic ovarian syndrome) August 222024 9:26am September 03, 2024 9:26a m Rh negative status during September 03, 2024 9:26am Supervision of high-risk August 222024 9:26am Chief Complaint Admit Date Amb Documentation June 21, 2024 9:43am New OB, LMP 1/, RADHA 02/06July 12, 2 025 8:47am OB, palpitations July 24, 2024 8:49 am PALPITATIONS IN July 29 8:53am PALPS July 29, 2024 8:58 am 13wk ob August 06, 2024 8:4 6am 17wk ob September 03, 2024 9:26a m 21wk ob September 30, 2024 3:30p m Reason for Visit Admit Date Adopted July 12, 2024 8:4 7am Anxiety and depression July 12, 2024 8:47am Endometriosis determined by laparoscopy July 12, 2024 8:47am Edgar's disease July 12, 2024 8:4 7am Irritable bowel syndrome with constipati on July 12, 2024 8:47am Ischemic hepatitis July 12, 2024 8:4 7am PCOS (polycystic ovarian syndrome) July 12, 2024 8:47am July 12, 2024 8:4 7am Rh negative status during Daniel 2024 8:47am Supervision of high-risk July 12, 2024 8:47am Adopted July 24, 2024 8:49 am Anxiety and depression July 24, 2024 8 :49am Endometriosis determined by laparoscopy July 24, 2024 8:49am Edgar's disease July 24, 2024 8:49 am Irritable bowel syndrome with constipati on July 24, 2024 8:49am Ischemic hepatitis July 24, 2024 8:49 am Palpitations July 24, 2024 8:49 am PCOS (polycystic ovarian syndrome) July 24, 2024 8:49am July 24, 2024 8:49 am Rh negative status during Apri l 2024 8:49am Supervision of high-risk July 24, 2024 8:49am Adopted August 06, 2024 8:4 6am Anxiety and depression August 06, 2024 8:46am Endometriosis determined by laparoscopy August 06, 2024 8:46am Edgar's disease August 06, 2024 8:4 6am Irritable bowel syndrome with constipati on August 06, 2024 8:46am Ischemic hepatitis August 06, 2024 8:4 6am Palpitations August 06, 2024 8:4 6am PCOS (polycystic ovarian syndrome) August 06, 2024 8:46am August 06, 2024 8:4 6am Rh negative status during Apri l 2024 8:46am Supervision of high-risk August 06, 2024 8:46am Adopted September 03, 2024 9:26a m Anxiety and depression September 03, 2024 9: 26am Endometriosis determined by laparoscopy September 03, 2024 9:26am Edgar's disease September 03, 2024 9:26a m Irritable bowel syndrome with constipati on September 03, 2024 9:26am Ischemic hepatitis September 03, 2024 9:26a m Palpitations September 03, 2024 9:26a m PCOS (polycystic ovarian syndrome) August 222024 9:26am September 03, 2024 9:26a m Rh negative status during September 03, 2024 9:26am Supervision of high-risk August 222024 9:26am Adopted September 30, 2024 3:30p m Anxiety and depression September 30, 2024 3: 30pm Circumvallate placenta September 30, 2024 3: 30pm Endometriosis determined by laparoscopy September 30, 2024 3:30pm Family history of congenital septal defe ct September 30, 2024 3:30pm 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, 2024 3:30p m Irritable bowel syndrome with constipati on September 30, 2024 3:30pm Ischemic hepatitis September 30, 2024 3:30p m Palpitations September 30, 2024 3:30p m PCOS (polycystic ovarian syndrome) September 30, 2024 3:30pm September 30, 2024 3:30p m Rh negative status during September 30, 2024 3:30pm Supervision of high-risk September 30, 2024 3:30pm Chief Complaint Admit Date New OB, LMP 05/02, RADHA 02/06July 12, 2 025 8:47am OB, palpitations July 24, 2024 8:49 am PALPITATIONS IN July 29 8:53am PALPS July 29, 2024 8:58 am 13wk ob August 06, 2024 8:4 6am 17wk ob September 03, 2024 9:26a m 21wk ob September 30, 2024 3:30p m 26wk ob November 06, 2024 10:5 6am Reason for Visit Admit Date Adopted July 12, 2024 8:4 7am Anxiety and depression July 12, 2024 8:47am Endometriosis determined by laparoscopy July 12, 2024 8:47am Edgar's disease July 12, 2024 8:4 7am Irritable bowel syndrome with constipati on July 12, 2024 8:47am Ischemic hepatitis July 12, 2024 8:4 7am PCOS (polycystic ovarian syndrome) July 12, 2024 8:47am July 12, 2024 8:4 7am Rh negative status during Daniel 2024 8:47am Supervision of high-risk July 12, 2024 8:47am Adopted July 24, 2024 8:49 am Anxiety and depression July 24, 2024 8 :49am Endometriosis determined by laparoscopy July 24, 2024 8:49am Edgar's disease July 24, 2024 8:49 am Irritable bowel syndrome with constipati on July 24, 2024 8:49am Ischemic hepatitis July 24, 2024 8:49 am PCOS (polycystic ovarian syndrome) July 24, 2024 8:49am July 24, 2024 8:49 am Rh negative status during Juli l 2024 8:49am Supervision of high-risk July 24, 2024 8:49am Palpitations July 24, 2024 8:49 am Adopted August 06, 2024 8:4 6am Anxiety and depression August 06, 2024 8:46am Endometriosis determined by laparoscopy August 06, 2024 8:46am Edgar's disease August 06, 2024 8:4 6am Irritable bowel syndrome with constipati on August 06, 2024 8:46am Ischemic hepatitis August 06, 2024 8:4 6am PCOS (polycystic ovarian syndrome) August 06, 2024 8:46am August 06, 2024 8:4 6am Rh negative status during Apri l 2024 8:46am Supervision of high-risk August 06, 2024 8:46am Palpitations August 06, 2024 8:4 6am Adopted September 03, 2024 9:26a m Anxiety and depression September 03, 2024 9: 26am Endometriosis determined by laparoscopy September 03, 2024 9:26am Edgar's disease September 03, 2024 9:26a m Irritable bowel syndrome with constipati on September 03, 2024 9:26am Ischemic hepatitis September 03, 2024 9:26a m PCOS (polycystic ovarian syndrome) August 222024 9:26am September 03, 2024 9:26a m Rh negative status during September 03, 2024 9:26am Supervision of high-risk August 222024 9:26am Palpitations September 03, 2024 9:26a m Adopted September 30, 2024 3:30p m Anxiety and depression September 30, 2024 3: 30pm Circumvallate placenta September 30, 2024 3: 30pm Endometriosis determined by laparoscopy September 30, 2024 3:30pm Family history of congenital septal defe ct September 30, 2024 3:30pm 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, 2024 3:30p m Irritable bowel syndrome with constipati on September 30, 2024 3:30pm Ischemic hepatitis September 30, 2024 3:30p m PCOS (polycystic ovarian syndrome) September 30, 2024 3:30pm September 30, 2024 3:30p m Rh negative status during September 30, 2024 3:30pm Supervision of high-risk September 30, 2024 3:30pm Palpitations September 30, 2024 3:30p m Adopted November 06, 2024 10:5 6am Anxiety and depression November 06, 2024 1 0:56am 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 06, 2024 1 0:56am Endometriosis determined by laparoscopy November 06, 2024 10:56am Family history of congenital septal defe ct November 06, 2024 10:56am Edgar's disease November 06, 2024 10:5 6am Irritable bowel syndrome with constipati on November 06, 2024 10:56am Ischemic hepatitis November 06, 2024 10:5 6am PCOS (polycystic ovarian syndrome) November 06, 2024 10:56am November 06, 2024 10:5 6am Rh negative status during November 06, 2024 10:56am Supervision of high-risk November 06, 2024 10:56am Chief Complaint Admit Date OB, palpitations July 24, 2024 8:49 am PALPITATIONS IN July 29 8:53am PALPS July 29, 2024 8:58 am 13wk ob August 06, 2024 8:4 6am 17wk ob September 03, 2024 9:26a m 21wk ob September 30, 2024 3:30p m 26wk ob November 06, 2024 10:5 6am 28 WK OB/GLUCOSE November 20, 2024 8:33 am Reason for Visit Admit Date Adopted July 24, 2024 8:49 am Anxiety and depression July 24, 2024 8 :49am Endometriosis determined by laparoscopy July 24, 2024 8:49am Edgar's disease July 24, 2024 8:49 am Irritable bowel syndrome with constipati on July 24, 2024 8:49am Ischemic hepatitis July 24, 2024 8:49 am PCOS (polycystic ovarian syndrome) July 24, 2024 8:49am July 24, 2024 8:49 am Rh negative status during Apri l 2024 8:49am Supervision of high-risk July 24, 2024 8:49am Palpitations July 24, 2024 8:49 am Adopted August 06, 2024 8:4 6am Anxiety and depression August 06, 2024 8:46am Endometriosis determined by laparoscopy August 06, 2024 8:46am Edgar's disease August 06, 2024 8:4 6am Irritable bowel syndrome with constipati on August 06, 2024 8:46am Ischemic hepatitis August 06, 2024 8:4 6am PCOS (polycystic ovarian syndrome) August 06, 2024 8:46am August 06, 2024 8:4 6am Rh negative status during Apri l 2024 8:46am Supervision of high-risk August 06, 2024 8:46am Palpitations August 06, 2024 8:4 6am Adopted September 03, 2024 9:26a m Anxiety and depression September 03, 2024 9: 26am Endometriosis determined by laparoscopy September 03, 2024 9:26am Edgar's disease September 03, 2024 9:26a m Irritable bowel syndrome with constipati on September 03, 2024 9:26am Ischemic hepatitis September 03, 2024 9:26a m PCOS (polycystic ovarian syndrome) August 222024 9:26am September 03, 2024 9:26a m Rh negative status during September 03, 2024 9:26am Supervision of high-risk August 222024 9:26am Palpitations September 03, 2024 9:26a m Adopted September 30, 2024 3:30p m Anxiety and depression September 30, 2024 3: 30pm Circumvallate placenta September 30, 2024 3: 30pm Endometriosis determined by laparoscopy September 30, 2024 3:30pm Family history of congenital septal defe ct September 30, 2024 3:30pm 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, 2024 3:30p m Irritable bowel syndrome with constipati on September 30, 2024 3:30pm Ischemic hepatitis September 30, 2024 3:30p m PCOS (polycystic ovarian syndrome) September 30, 2024 3:30pm September 30, 2024 3:30p m Rh negative status during September 30, 2024 3:30pm Supervision of high-risk September 30, 2024 3:30pm Palpitations September 30, 2024 3:30p m Adopted November 06, 2024 10:5 6am Anxiety and depression November 06, 2024 1 0:56am 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 06, 2024 1 0:56am Endometriosis determined by laparoscopy November 06, 2024 10:56am Family history of congenital septal defe ct November 06, 2024 10:56am Degar's disease November 06, 2024 10:5 6am Irritable bowel syndrome with constipati on November 06, 2024 10:56am Ischemic hepatitis November 06, 2024 10:5 6am PCOS (polycystic ovarian syndrome) November 06, 2024 10:56am November 06, 2024 10:5 6am Rh negative status during November 06, 2024 10:56am Supervision of high-risk November 06, 2024 10:56am Adopted November 20, 2024 8:33 am Anxiety and depression November 20, 2024 8 :33am 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 20, 2024 8 :33am Endometriosis determined by laparoscopy November 20, 2024 8:33am Family history of congenital septal defe ct November 20, 2024 8:33am 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, 2024 8:33 am Irritable bowel syndrome with constipati on November 20, 2024 8:33am Ischemic hepatitis November 20, 2024 8:33 am PCOS (polycystic ovarian syndrome) November 20, 2024 8:33am November 20, 2024 8:33 am Rh negative status during November 20, 2024 8:33am Supervision of high-risk November 20, 2024 8:33am Chief Complaint Admit Date PALPITATIONS IN July 29 8:53am PALPS July 29, 2024 8:58 am 13wk ob August 06, 2024 8:4 6am 17wk ob September 03, 2024 9:26a m 21wk ob September 30, 2024 3:30p m 26wk ob November 06, 2024 10:5 6am 28 WK OB/GLUCOSE November 20, 2024 8:33 am Reason for Visit Admit Date Adopted August 06, 2024 8:4 6am Anxiety and depression August 06, 2024 8:46am Endometriosis determined by laparoscopy August 06, 2024 8:46am Edgar's disease August 06, 2024 8:4 6am Irritable bowel syndrome with constipati on August 06, 2024 8:46am Ischemic hepatitis August 06, 2024 8:4 6am PCOS (polycystic ovarian syndrome) August 06, 2024 8:46am August 06, 2024 8:4 6am Rh negative status during Apri l 2024 8:46am Supervision of high-risk August 06, 2024 8:46am Palpitations August 06, 2024 8:4 6am Adopted September 03, 2024 9:26a m Anxiety and depression September 03, 2024 9: 26am Endometriosis determined by laparoscopy September 03, 2024 9:26am Edgar's disease September 03, 2024 9:26a m Irritable bowel syndrome with constipati on September 03, 2024 9:26am Ischemic hepatitis September 03, 2024 9:26a m PCOS (polycystic ovarian syndrome) August 222024 9:26am September 03, 2024 9:26a m Rh negative status during September 03, 2024 9:26am Supervision of high-risk August 222024 9:26am Palpitations September 03, 2024 9:26a m Adopted September 30, 2024 3:30p m Anxiety and depression September 30, 2024 3: 30pm Circumvallate placenta September 30, 2024 3: 30pm Endometriosis determined by laparoscopy September 30, 2024 3:30pm Family history of congenital septal defe ct September 30, 2024 3:30pm 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, 2024 3:30p m Irritable bowel syndrome with constipati on September 30, 2024 3:30pm Ischemic hepatitis September 30, 2024 3:30p m PCOS (polycystic ovarian syndrome) September 30, 2024 3:30pm September 30, 2024 3:30p m Rh negative status during September 30, 2024 3:30pm Supervision of high-risk September 30, 2024 3:30pm Palpitations September 30, 2024 3:30p m Adopted November 06, 2024 10:5 6am Anxiety and depression November 06, 2024 1 0:56am 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 06, 2024 1 0:56am Endometriosis determined by laparoscopy November 06, 2024 10:56am Family history of congenital septal defe ct November 06, 2024 10:56am Edgar's disease November 06, 2024 10:5 6am Irritable bowel syndrome with constipati on November 06, 2024 10:56am Ischemic hepatitis November 06, 2024 10:5 6am PCOS (polycystic ovarian syndrome) November 06, 2024 10:56am November 06, 2024 10:5 6am Rh negative status during November 06, 2024 10:56am Supervision of high-risk November 06, 2024 10:56am Adopted November 20, 2024 8:33 am Anxiety and depression November 20, 2024 8 :33am 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 20, 2024 8 :33am Endometriosis determined by laparoscopy November 20, 2024 8:33am Family history of congenital septal defe ct November 20, 2024 8:33am 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, 2024 8:33 am Irritable bowel syndrome with constipati on November 20, 2024 8:33am Ischemic hepatitis November 20, 2024 8:33 am PCOS (polycystic ovarian syndrome) November 20, 2024 8:33am November 20, 2024 8:33 am Rh negative status during November 20, 2024 8:33am Supervision of high-risk November 20, 2024 8:33am Chief Complaint Admit Date 13wk ob August 06, 2024 8:4 6am 17wk ob September 03, 2024 9:26a m 21wk ob September 30, 2024 3:30p m 26wk ob November 06, 2024 10:5 6am 28 WK OB/GLUCOSE November 20, 2024 8:33 am GESTATIONAL November 27, 2024 6:5 5am Chief Complaint Admit Date wk ob August 06, 2024 8:4 6am 17wk ob September 03, 2024 9:26a m 21wk ob September 30, 2024 3:30p m 26wk ob November 06, 2024 10:5 6am 28 WK OB/GLUCOSE November 20, 2024 8:33 am GESTATIONAL November 27, 2024 6:5 5am 30 wk ob December 04, 2024 10 :04am Reason for Visit Admit Date Adopted August 06, 2024 8:4 6am Anxiety and depression August 06, 2024 8:46am Endometriosis determined by laparoscopy August 06, 2024 8:46am Edgar's disease August 06, 2024 8:4 6am Irritable bowel syndrome with constipati on August 06, 2024 8:46am Ischemic hepatitis August 06, 2024 8:4 6am PCOS (polycystic ovarian syndrome) August 06, 2024 8:46am August 06, 2024 8:4 6am Rh negative status during Apri l 2024 8:46am Supervision of high-risk August 06, 2024 8:46am Palpitations August 06, 2024 8:4 6am Adopted September 03, 2024 9:26a m Anxiety and depression September 03, 2024 9: 26am Endometriosis determined by laparoscopy September 03, 2024 9:26am Edgar's disease September 03, 2024 9:26a m Irritable bowel syndrome with constipati on September 03, 2024 9:26am Ischemic hepatitis September 03, 2024 9:26a m PCOS (polycystic ovarian syndrome) August 222024 9:26am September 03, 2024 9:26a m Rh negative status during September 03, 2024 9:26am Supervision of high-risk August 222024 9:26am Palpitations September 03, 2024 9:26a m Adopted September 30, 2024 3:30p m Anxiety and depression September 30, 2024 3: 30pm Circumvallate placenta September 30, 2024 3: 30pm Endometriosis determined by laparoscopy September 30, 2024 3:30pm Family history of congenital septal defe ct September 30, 2024 3:30pm 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, 2024 3:30p m Irritable bowel syndrome with constipati on September 30, 2024 3:30pm Ischemic hepatitis September 30, 2024 3:30p m PCOS (polycystic ovarian syndrome) September 30, 2024 3:30pm September 30, 2024 3:30p m Rh negative status during September 30, 2024 3:30pm Supervision of high-risk September 30, 2024 3:30pm Palpitations September 30, 2024 3:30p m Adopted November 06, 2024 10:5 6am Anxiety and depression November 06, 2024 1 0:56am 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 06, 2024 1 0:56am Endometriosis determined by laparoscopy November 06, 2024 10:56am Family history of congenital septal defe ct November 06, 2024 10:56am Edgar's disease November 06, 2024 10:5 6am Irritable bowel syndrome with constipati on November 06, 2024 10:56am Ischemic hepatitis November 06, 2024 10:5 6am PCOS (polycystic ovarian syndrome) November 06, 2024 10:56am November 06, 2024 10:5 6am Rh negative status during November 06, 2024 10:56am Supervision of high-risk November 06, 2024 10:56am Adopted November 20, 2024 8:33 am Anxiety and depression November 20, 2024 8 :33am 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 20, 2024 8 :33am Endometriosis determined by laparoscopy November 20, 2024 8:33am Family history of congenital septal defe ct November 20, 2024 8:33am 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, 2024 8:33 am Irritable bowel syndrome with constipati on November 20, 2024 8:33am Ischemic hepatitis November 20, 2024 8:33 am PCOS (polycystic ovarian syndrome) November 20, 2024 8:33am November 20, 2024 8:33 am Rh negative status during November 20, 2024 8:33am Supervision of high-risk November 20, 2024 8:33am Abnormal glucose affecting Aug us2024 10:04am Adopted December 04, 2024 10 :04am Anxiety and depression December 04, 2024 10:04am Circumvallate placenta December 04, 2024 10:04am Endometriosis determined by laparoscopy December 04, 2024 10:04am Family history of congenital septal defe ct December 04, 2024 10:04am Edgar's disease December 04, 2024 10 :04am Irritable bowel syndrome with constipati on December 04, 2024 10:04am Ischemic hepatitis December 04, 2024 10 :04am PCOS (polycystic ovarian syndrome) Augus t 2024 10:04am December 04, 2024 10 :04am Rh negative status during Augu st 2024 10:04am Supervision of high-risk Augus 2024 10:04am Chief Complaint Admit Date 17wk ob September 03, 2024 9:26a m 21wk ob September 30, 2024 3:30p m 26wk ob November 06, 2024 10:5 6am 28 WK OB/GLUCOSE November 20, 2024 8:33 am GESTATIONAL November 27, 2024 6:5 5am 30 wk ob December 04, 2024 10 :04am Reason for Visit Admit Date Adopted September 03, 2024 9:26a m Anxiety and depression September 03, 2024 9: 26am Endometriosis determined by laparoscopy September 03, 2024 9:26am Edgar's disease September 03, 2024 9:26a m Irritable bowel syndrome with constipati on September 03, 2024 9:26am Ischemic hepatitis September 03, 2024 9:26a m PCOS (polycystic ovarian syndrome) August 222024 9:26am September 03, 2024 9:26a m Rh negative status during September 03, 2024 9:26am Supervision of high-risk August 222024 9:26am Palpitations September 03, 2024 9:26a m Adopted September 30, 2024 3:30p m Anxiety and depression September 30, 2024 3: 30pm Circumvallate placenta September 30, 2024 3: 30pm Endometriosis determined by laparoscopy September 30, 2024 3:30pm Family history of congenital septal defe ct September 30, 2024 3:30pm 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, 2024 3:30p m Irritable bowel syndrome with constipati on September 30, 2024 3:30pm Ischemic hepatitis September 30, 2024 3:30p m PCOS (polycystic ovarian syndrome) September 30, 2024 3:30pm September 30, 2024 3:30p m Rh negative status during September 30, 2024 3:30pm Supervision of high-risk September 30, 2024 3:30pm Palpitations September 30, 2024 3:30p m Adopted November 06, 2024 10:5 6am Anxiety and depression November 06, 2024 1 0:56am 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 06, 2024 1 0:56am Endometriosis determined by laparoscopy November 06, 2024 10:56am Family history of congenital septal defe ct November 06, 2024 10:56am Edgar's disease November 06, 2024 10:5 6am Irritable bowel syndrome with constipati on November 06, 2024 10:56am Ischemic hepatitis November 06, 2024 10:5 6am PCOS (polycystic ovarian syndrome) November 06, 2024 10:56am November 06, 2024 10:5 6am Rh negative status during November 06, 2024 10:56am Supervision of high-risk November 06, 2024 10:56am Adopted November 20, 2024 8:33 am Anxiety and depression November 20, 2024 8 :33am 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 20, 2024 8 :33am Endometriosis determined by laparoscopy November 20, 2024 8:33am Family history of congenital septal defe ct November 20, 2024 8:33am 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, 2024 8:33 am Irritable bowel syndrome with constipati on November 20, 2024 8:33am Ischemic hepatitis November 20, 2024 8:33 am PCOS (polycystic ovarian syndrome) November 20, 2024 8:33am November 20, 2024 8:33 am Rh negative status during November 20, 2024 8:33am Supervision of high-risk November 20, 2024 8:33am Abnormal glucose affecting Aug us2024 10:04am Adopted December 04, 2024 10 :04am Anxiety and depression December 04, 2024 10:04am Circumvallate placenta December 04, 2024 10:04am Endometriosis determined by laparoscopy December 04, 2024 10:04am Family history of congenital septal defe ct December 04, 2024 10:04am Edgar's disease December 04, 2024 10 :04am Irritable bowel syndrome with constipati on December 04, 2024 10:04am Ischemic hepatitis December 04, 2024 10 :04am PCOS (polycystic ovarian syndrome) Augus t 2024 10:04am December 04, 2024 10 :04am Rh negative status during Augu st 2024 10:04am Supervision of high-risk Augus t 2024 10:04am Chief Complaint Admit Date 17wk ob September 03, 2024 9:26a m 21wk ob September 30, 2024 3:30p m 26wk ob November 06, 2024 10:5 6am 28 WK OB/GLUCOSE November 20, 2024 8:33 am GESTATIONAL November 27, 2024 6:5 5am 30 wk ob December 04, 2024 10 :04am 32 wk ob December 18, 2024 9: 40am Reason for Visit Admit Date Adopted September 03, 2024 9:26a m Anxiety and depression September 03, 2024 9: 26am Endometriosis determined by laparoscopy September 03, 2024 9:26am Edgar's disease September 03, 2024 9:26a m Irritable bowel syndrome with constipati on September 03, 2024 9:26am Ischemic hepatitis September 03, 2024 9:26a m PCOS (polycystic ovarian syndrome) August 222024 9:26am September 03, 2024 9:26a m Rh negative status during September 03, 2024 9:26am Supervision of high-risk August 222024 9:26am Palpitations September 03, 2024 9:26a m Adopted September 30, 2024 3:30p m Anxiety and depression September 30, 2024 3: 30pm Circumvallate placenta September 30, 2024 3: 30pm Endometriosis determined by laparoscopy September 30, 2024 3:30pm Family history of congenital septal defe ct September 30, 2024 3:30pm 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, 2024 3:30p m Irritable bowel syndrome with constipati on September 30, 2024 3:30pm Ischemic hepatitis September 30, 2024 3:30p m PCOS (polycystic ovarian syndrome) September 30, 2024 3:30pm September 30, 2024 3:30p m Rh negative status during September 30, 2024 3:30pm Supervision of high-risk September 30, 2024 3:30pm Palpitations September 30, 2024 3:30p m Adopted November 06, 2024 10:5 6am Anxiety and depression November 06, 2024 1 0:56am 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 06, 2024 1 0:56am Endometriosis determined by laparoscopy November 06, 2024 10:56am Family history of congenital septal defe ct November 06, 2024 10:56am Edgar's disease November 06, 2024 10:5 6am Irritable bowel syndrome with constipati on November 06, 2024 10:56am Ischemic hepatitis November 06, 2024 10:5 6am PCOS (polycystic ovarian syndrome) November 06, 2024 10:56am November 06, 2024 10:5 6am Rh negative status during November 06, 2024 10:56am Supervision of high-risk November 06, 2024 10:56am Adopted November 20, 2024 8:33 am Anxiety and depression November 20, 2024 8 :33am 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 20, 2024 8 :33am Endometriosis determined by laparoscopy November 20, 2024 8:33am Family history of congenital septal defe ct November 20, 2024 8:33am 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, 2024 8:33 am Irritable bowel syndrome with constipati on November 20, 2024 8:33am Ischemic hepatitis November 20, 2024 8:33 am PCOS (polycystic ovarian syndrome) November 20, 2024 8:33am November 20, 2024 8:33 am Rh negative status during November 20, 2024 8:33am Supervision of high-risk November 20, 2024 8:33am Abnormal glucose affecting Nov us2024 10:04am Adopted December 04, 2024 10 :04am Anxiety and depression December 04, 2024 10:04am Circumvallate placenta December 04, 2024 10:04am Endometriosis determined by laparoscopy December 04, 2024 10:04am Family history of congenital septal defe ct December 04, 2024 10:04am Edgar's disease December 04, 2024 10 :04am Irritable bowel syndrome with constipati on December 04, 2024 10:04am Ischemic hepatitis December 04, 2024 10 :04am PCOS (polycystic ovarian syndrome) Augus t 2024 10:04am December 04, 2024 10 :04am Rh negative status during Augu st 2024 10:04am Supervision of high-risk Augus t 2024 10:04am Abnormal glucose affecting Aug us2024 9:40am Adopted December 18, 2024 9: 40am Anxiety and depression December 18, 2024 9:40am Circumvallate placenta December 18, 2024 9:40am Endometriosis determined by laparoscopy December 18, 2024 9:40am Family history of congenital septal defe ct December 18, 2024 9:40am Edgar's disease December 18, 2024 9: 40am Irritable bowel syndrome with constipati on December 18, 2024 9:40am Ischemic hepatitis December 18, 2024 9: 40am PCOS (polycystic ovarian syndrome) Augus t 2024 9:40am December 18, 2024 9: 40am Rh negative status during Augu st 2024 9:40am Supervision of high-risk Augus t 2024 9:40am Chief Complaint Admit Date 17wk ob September 03, 2024 9:26a m 21wk ob September 30, 2024 3:30p m 26wk ob November 06, 2024 10:5 6am 28 WK OB/GLUCOSE November 20, 2024 8:33 am GESTATIONAL November 27, 2024 6:5 5am 30 wk ob December 04, 2024 10 :04am 33wk ob December 18, 2024 9: 40am 35wk ob January 01, 2025 9:41am Reason for Visit Admit Date Adopted September 03, 2024 9:26a m Anxiety and depression September 03, 2024 9: 26am Endometriosis determined by laparoscopy September 03, 2024 9:26am Edgar's disease September 03, 2024 9:26a m Irritable bowel syndrome with constipati on September 03, 2024 9:26am Ischemic hepatitis September 03, 2024 9:26a m PCOS (polycystic ovarian syndrome) August 222024 9:26am September 03, 2024 9:26a m Rh negative status during September 03, 2024 9:26am Supervision of high-risk August 222024 9:26am Palpitations September 03, 2024 9:26a m Adopted September 30, 2024 3:30p m Anxiety and depression September 30, 2024 3: 30pm Circumvallate placenta September 30, 2024 3: 30pm Endometriosis determined by laparoscopy September 30, 2024 3:30pm Family history of congenital septal defe ct September 30, 2024 3:30pm 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, 2024 3:30p m Irritable bowel syndrome with constipati on September 30, 2024 3:30pm Ischemic hepatitis September 30, 2024 3:30p m PCOS (polycystic ovarian syndrome) September 30, 2024 3:30pm September 30, 2024 3:30p m Rh negative status during September 30, 2024 3:30pm Supervision of high-risk September 30, 2024 3:30pm Palpitations September 30, 2024 3:30p m Adopted November 06, 2024 10:5 6am Anxiety and depression November 06, 2024 1 0:56am 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 06, 2024 1 0:56am Endometriosis determined by laparoscopy November 06, 2024 10:56am Family history of congenital septal defe ct November 06, 2024 10:56am Edgar's disease November 06, 2024 10:5 6am Irritable bowel syndrome with constipati on November 06, 2024 10:56am Ischemic hepatitis November 06, 2024 10:5 6am PCOS (polycystic ovarian syndrome) November 06, 2024 10:56am November 06, 2024 10:5 6am Rh negative status during November 06, 2024 10:56am Supervision of high-risk November 06, 2024 10:56am Adopted November 20, 2024 8:33 am Anxiety and depression November 20, 2024 8 :33am 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 20, 2024 8 :33am Endometriosis determined by laparoscopy November 20, 2024 8:33am Family history of congenital septal defe ct November 20, 2024 8:33am 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, 2024 8:33 am Irritable bowel syndrome with constipati on November 20, 2024 8:33am Ischemic hepatitis November 20, 2024 8:33 am PCOS (polycystic ovarian syndrome) November 20, 2024 8:33am November 20, 2024 8:33 am Rh negative status during November 20, 2024 8:33am Supervision of high-risk November 20, 2024 8:33am Abnormal glucose affecting Aug ust 2024 10:04am Adopted December 04, 2024 10 :04am Anxiety and depression December 04, 2024 10:04am Circumvallate placenta December 04, 2024 10:04am Endometriosis determined by laparoscopy December 04, 2024 10:04am Family history of congenital septal defe ct December 04, 2024 10:04am Edgar's disease December 04, 2024 10 :04am Irritable bowel syndrome with constipati on December 04, 2024 10:04am Ischemic hepatitis December 04, 2024 10 :04am PCOS (polycystic ovarian syndrome) Augus t 2024 10:04am December 04, 2024 10 :04am Rh negative status during Augu st 2024 10:04am Supervision of high-risk Augus 2024 10:04am Abnormal glucose affecting Aug ust 2024 9:40am Adopted December 18, 2024 9: 40am Anxiety and depression December 18, 2024 9:40am Circumvallate placenta December 18, 2024 9:40am Endometriosis determined by laparoscopy December 18, 2024 9:40am Family history of congenital septal defe ct December 18, 2024 9:40am Edgar's disease December 18, 2024 9: 40am Irritable bowel syndrome with constipati on December 18, 2024 9:40am Ischemic hepatitis December 18, 2024 9: 40am PCOS (polycystic ovarian syndrome) Augus 2024 9:40am December 18, 2024 9: 40am Rh negative status during Augu 2024 9:40am Supervision of high-risk Aug2024 9:40am Abnormal glucose affecting Sep 2024 9:41am Adopted January 01, 2025 9:41am Anxiety and depression January 01 9:41am Circumvallate placenta January 01 9:41am Endometriosis determined by laparoscopy January 01, 2025 9:41am Family history of congenital septal defe ct January 01, 2025 9:41am Edgar's disease January 01, 2025 9:41am Irritable bowel syndrome with constipati on January 01, 2025 9:41am Ischemic hepatitis January 01, 2025 9:41am PCOS (polycystic ovarian syndrome) [facility]2024 9:41am January 01, 2025 9:41am Rh negative status during [facility]2024 9:41am Supervision of high-risk [facility]2024 9:41am Chief Complaint Admit Date 21wk ob September 30, 2024 3:30p m 26wk ob November 06, 2024 10:5 6am 28 WK OB/GLUCOSE November 20, 2024 8:33 am GESTATIONAL November 27, 2024 6:5 5am 30 wk ob December 04, 2024 10 :04am 33wk ob December 18, 2024 9: 40am 35wk ob January 01, 2025 9:41am 36 WK OB January 13, 2025 2:46pm ORDER SCANNED January 13, 2025 3:58pm Reason for Visit Admit Date Adopted September 30, 2024 3:30p m Anxiety and depression September 30, 2024 3: 30pm Circumvallate placenta September 30, 2024 3: 30pm Endometriosis determined by laparoscopy September 30, 2024 3:30pm Family history of congenital septal defe ct September 30, 2024 3:30pm 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, 2024 3:30p m Irritable bowel syndrome with constipati on September 30, 2024 3:30pm Ischemic hepatitis September 30, 2024 3:30p m PCOS (polycystic ovarian syndrome) September 30, 2024 3:30pm September 30, 2024 3:30p m Rh negative status during September 30, 2024 3:30pm Supervision of high-risk September 30, 2024 3:30pm Palpitations September 30, 2024 3:30p m Adopted November 06, 2024 10:5 6am Anxiety and depression November 06, 2024 1 0:56am 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 06, 2024 1 0:56am Endometriosis determined by laparoscopy November 06, 2024 10:56am Family history of congenital septal defe ct November 06, 2024 10:56am Edgar's disease November 06, 2024 10:5 6am Irritable bowel syndrome with constipati on November 06, 2024 10:56am Ischemic hepatitis November 06, 2024 10:5 6am PCOS (polycystic ovarian syndrome) November 06, 2024 10:56am November 06, 2024 10:5 6am Rh negative status during November 06, 2024 10:56am Supervision of high-risk November 06, 2024 10:56am Adopted November 20, 2024 8:33 am Anxiety and depression November 20, 2024 8 :33am 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 20, 2024 8 :33am Endometriosis determined by laparoscopy November 20, 2024 8:33am Family history of congenital septal defe ct November 20, 2024 8:33am 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, 2024 8:33 am Irritable bowel syndrome with constipati on November 20, 2024 8:33am Ischemic hepatitis November 20, 2024 8:33 am PCOS (polycystic ovarian syndrome) November 20, 2024 8:33am November 20, 2024 8:33 am Rh negative status during November 20, 2024 8:33am Supervision of high-risk November 20, 2024 8:33am Abnormal glucose affecting Aug ust 2024 10:04am Adopted December 04, 2024 10 :04am Anxiety and depression December 04, 2024 10:04am Circumvallate placenta December 04, 2024 10:04am Endometriosis determined by laparoscopy December 04, 2024 10:04am Family history of congenital septal defe ct December 04, 2024 10:04am Edgar's disease December 04, 2024 10 :04am Irritable bowel syndrome with constipati on December 04, 2024 10:04am Ischemic hepatitis December 04, 2024 10 :04am PCOS (polycystic ovarian syndrome) Augus t 2024 10:04am December 04, 2024 10 :04am Rh negative status during Augu st 2024 10:04am Supervision of high-risk Augus t 2024 10:04am Abnormal glucose affecting Nov us2024 9:40am Adopted December 18, 2024 9: 40am Anxiety and depression December 18, 2024 9:40am Circumvallate placenta December 18, 2024 9:40am Endometriosis determined by laparoscopy December 18, 2024 9:40am Family history of congenital septal defe ct December 18, 2024 9:40am Edgar's disease December 18, 2024 9: 40am Irritable bowel syndrome with constipati on December 18, 2024 9:40am Ischemic hepatitis December 18, 2024 9: 40am PCOS (polycystic ovarian syndrome) Augus t 2024 9:40am December 18, 2024 9: 40am Rh negative status during Augu st 2024 9:40am Supervision of high-risk Augus t 2024 9:40am Abnormal glucose affecting Sep 2024 9:41am Adopted January 01, 2025 9:41am Anxiety and depression January 01 9:41am Circumvallate placenta January 01 025 9:41am Endometriosis determined by laparoscopy January 01, 2025 9:41am Family history of congenital septal defe ct January 01, 2025 9:41am Edgar's disease January 01, 2025 9:41am Irritable bowel syndrome with constipati on January 01, 2025 9:41am Ischemic hepatitis January 01, 2025 9:41am PCOS (polycystic ovarian syndrome) [facility]2024 9:41am January 01, 2025 9:41am Rh negative status during Dec 9:41am Supervision of high-risk [facility]2024 9:41am Abnormal glucose affecting [facility] 2024 2:46pm Adopted January 13, 2025 2:46pm Anxiety and depression January 13 025 2:46pm Circumvallate placenta January 13 025 2:46pm Endometriosis determined by laparoscopy January 13, 2025 2:46pm Family history of congenital septal defe ct January 13, 2025 2:46pm Edgar's disease January 13, 2025 2:46pm Irritable bowel syndrome with constipati on January 13, 2025 2:46pm Ischemic hepatitis January 13, 2025 2:46pm PCOS (polycystic ovarian syndrome) [facility] 2024 2:46pm January 13, 2025 2:46pm Rh negative status during [facility]2024 2:46pm Supervision of high-risk [facility] 2024 2:46pm Chief Complaint Admit Date 21wk ob September 30, 2024 3:30p m 26wk ob November 06, 2024 10:5 6am 28 WK OB/GLUCOSE November 20, 2024 8:33 am GESTATIONAL November 27, 2024 6:5 5am 30 wk ob December 04, 2024 10 :04am 33wk ob December 18, 2024 9: 40am 35wk ob January 01, 2025 9:41am 36 WK OB January 13, 2025 2:46pm ORDER SCANNED January 13, 2025 3:58pm 38wk ob January 24, 2025 1: 05pm Reason for Visit Admit Date Adopted September 30, 2024 3:30p m Anxiety and depression September 30, 2024 3: 30pm Circumvallate placenta September 30, 2024 3: 30pm Endometriosis determined by laparoscopy September 30, 2024 3:30pm Family history of congenital septal defe ct September 30, 2024 3:30pm 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, 2024 3:30p m Irritable bowel syndrome with constipati on September 30, 2024 3:30pm Ischemic hepatitis September 30, 2024 3:30p m PCOS (polycystic ovarian syndrome) September 30, 2024 3:30pm September 30, 2024 3:30p m Rh negative status during September 30, 2024 3:30pm Supervision of high-risk September 30, 2024 3:30pm Palpitations September 30, 2024 3:30p m Adopted November 06, 2024 10:5 6am Anxiety and depression November 06, 2024 1 0:56am 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 06, 2024 1 0:56am Endometriosis determined by laparoscopy November 06, 2024 10:56am Family history of congenital septal defe ct November 06, 2024 10:56am Edgar's disease November 06, 2024 10:5 6am Irritable bowel syndrome with constipati on November 06, 2024 10:56am Ischemic hepatitis November 06, 2024 10:5 6am PCOS (polycystic ovarian syndrome) November 06, 2024 10:56am November 06, 2024 10:5 6am Rh negative status during November 06, 2024 10:56am Supervision of high-risk November 06, 2024 10:56am Adopted November 20, 2024 8:33 am Anxiety and depression November 20, 2024 8 :33am 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 20, 2024 8 :33am Endometriosis determined by laparoscopy November 20, 2024 8:33am Family history of congenital septal defe ct November 20, 2024 8:33am 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, 2024 8:33 am Irritable bowel syndrome with constipati on November 20, 2024 8:33am Ischemic hepatitis November 20, 2024 8:33 am PCOS (polycystic ovarian syndrome) November 20, 2024 8:33am November 20, 2024 8:33 am Rh negative status during November 20, 2024 8:33am Supervision of high-risk November 20, 2024 8:33am Abnormal glucose affecting Aug ust 2024 10:04am Adopted December 04, 2024 10 :04am Anxiety and depression December 04, 2024 10:04am Circumvallate placenta December 04, 2024 10:04am Endometriosis determined by laparoscopy December 04, 2024 10:04am Family history of congenital septal defe ct December 04, 2024 10:04am Edgar's disease December 04, 2024 10 :04am Irritable bowel syndrome with constipati on December 04, 2024 10:04am Ischemic hepatitis December 04, 2024 10 :04am PCOS (polycystic ovarian syndrome) Augus t 2024 10:04am December 04, 2024 10 :04am Rh negative status during Augu st 2024 10:04am Supervision of high-risk Augus t 2024 10:04am Abnormal glucose affecting Aug us2024 9:40am Adopted December 18, 2024 9: 40am Anxiety and depression December 18, 2024 9:40am Circumvallate placenta December 18, 2024 9:40am Endometriosis determined by laparoscopy December 18, 2024 9:40am Family history of congenital septal defe ct December 18, 2024 9:40am Edgar's disease December 18, 2024 9: 40am Irritable bowel syndrome with constipati on December 18, 2024 9:40am Ischemic hepatitis December 18, 2024 9: 40am PCOS (polycystic ovarian syndrome) Augus t 2024 9:40am December 18, 2024 9: 40am Rh negative status during Augu st 2024 9:40am Supervision of high-risk Augus t 2024 9:40am Abnormal glucose affecting Sep [facility]2024 9:41am Adopted January 01, 2025 9:41am Anxiety and depression January 01 9:41am Circumvallate placenta January 01 9:41am Endometriosis determined by laparoscopy January 01, 2025 9:41am Family history of congenital septal defe ct January 01, 2025 9:41am Edgar's disease January 01, 2025 9:41am Irritable bowel syndrome with constipati on January 01, 2025 9:41am Ischemic hepatitis January 01, 2025 9:41am PCOS (polycystic ovarian syndrome) [facility]2024 9:41am January 01, 2025 9:41am Rh negative status during Dec [facility]2024 9:41am Supervision of high-risk [facility]2024 9:41am [facility] January 13, 2025 2:46pm Anxiety and depression January 13 2:46pm Circumvallate placenta January 13 2:46pm Endometriosis determined by laparoscopy January 13, 2025 2:46pm Family history of congenital septal defe ct January 13, 2025 2:46pm Edgar's disease January 13, 2025 2:46pm Irritable bowel syndrome with constipati on January 13, 2025 2:46pm Ischemic hepatitis January 13, 2025 2:46pm PCOS (polycystic ovarian syndrome) [facility] 2024 2:46pm January 13, 2025 2:46pm Rh negative status during [facility]2024 2:46pm Supervision of high-risk [facility] 2024 2:46pm Abnormal glucose affecting Oct tammi2024 1:05pm Adopted January 24, 2025 1: 05pm Anxiety and depression January 24, 2025 1:05pm Circumvallate placenta January 24, 2025 1:05pm Endometriosis determined by laparoscopy January 24, 2025 1:05pm Family history of congenital septal defe ct January 24, 2025 1:05pm Edgar's disease January 24, 2025 1: 05pm Irritable bowel syndrome with constipati on January 24, 2025 1:05pm Ischemic hepatitis January 24, 2025 1: 05pm PCOS (polycystic ovarian syndrome) Oct[facility] 2024 1:05pm January 24, 2025 1: 05pm Rh negative status during Octo cely 2024 1:05pm Supervision of high-risk Octob er 2024 1:05pm Additional Source Comments Patient Care team informatio n (unrecognized section and content) Team Status: Active Member Role Status Dates Eliud Peñaloza NP-Shanice Primary Care Provider Active Team Status: Active Member Role Status Dates OSCAR Mitchell Primary Care Provider Active Start: June 21, 2024 Laura Jackson RN Attending Provider Active St art: June 21, 2024 Team Status: Inactive Member Role Status Dates OSCAR Mitchell Primary Care Provider Active Start: July 12, 2024 End: July 12, 2024 OSCAR Mitchell Referring Provider Active Start: July 12, 2024 End: July 12, 2024 Debra Montalvo CNM Attending Provider Active S tart: July 12, 2024 End: July 12, 2024 Team Status: Inactive Member Role Status Dates OSCAR Mitchell Primary Care Provider Active Start: July 12, 2024 End: July 12, 2024 Debra Montalvo CNM Attending Provider Active S tart: July 12, 2024 End: July 12, 2024 Debra Montalvo CNM Referring Provider Active S tart: July 12, 2024 End: July 12, 2024 Parole Director Relationship Specialty Start Date End Date Jimmy (Ms)Dorie PCP - General 07/29/18 Parole Director Relationship Specialty Start Date End Date Jimmy (Ms), Dorie PCP - General 07/29/18 Parole Director Relationship Specialty Start Date End Date Eliud Peñaloza APRN.C[employer]ER [address] [place] [id number] PCP - General Family Medicine 06/20/23 Parole Director Relationship Specialty Start Date End Date Eliud Peñaloza APRN.CNP [facility] [place], [place] [id number] PCP - General Family Medicine 06/20/23 Parole Director Relationship Specialty Start Date End Date Jimmy (Ms)Dorie PCP - General 07/29/18 06/19/23 Eliud Peñaloza, [employer].COLD ROLL CATCHER [address] [place] [address] PCP - General Family Medicine 06/20/23 Parole Director Relationship Specialty Start Date End Date Eliud Peñaloza, [employer].COLD ROLL CATCHER [facility] [place] [address] PCP - General Family Medicine 06/20/23 Parole Director Relationship Specialty Start Date End Date Eliud Peñaloza [employer].COLD ROLL CATCHER [address] [place] [address], [place] [address] PCP - General Family Medicine 06/20/23 Parole Director Relationship Specialty Start Date End Date Eliud Peñaloza [employer].COLD ROLL CATCHER [address] [place] [address], [place] [address] PCP - General Family Medicine 06/20/23 Parole Director Relationship Specialty Start Date End Date Eliud Peñaloza [employer].COLD ROLL CATCHER [address] [place] [address], [place] [address] PCP - General Family Medicine 06/20/23 Team Status: Inactive Member Role Status Dates Dr. Mandeep Flynn , DO Emergency Provider Active Eliud Peñaloza , CODING QUALITY ANALYST-C Primary Care Provider Active Parole Director Relationship Specialty Start Date End Date Eliud Peñaloza, [employer].COLD ROLL CATCHER [facility] [place] [address] PCP - General Family Medicine 06/20/23 Parole Director Relationship Specialty Start Date End Date Eliud Peñaloza, [employer].COLD ROLL CATCHER [facility] [place] [address] PCP - General Family Medicine 06/20/23 Parole Director Relationship Specialty Start Date End Date Eliud Peñaloza APRN.COLD ROLL CATCHER [address] [place] [id number] PCP - General Family Medicine 06/20/23 Parole Director Relationship Specialty Start Date End Date Eliud Peñaloza APRN.COLD ROLL CATCHER [address] [place] [id number] PCP - General Family Medicine 06/20/23 Parole Director Relationship Specialty Start Date End Date Eliud Peñaloza APRN.COLD ROLL CATCHER [address] [place] [id number] PCP - General Family Medicine 06/20/23 Parole Director Relationship Specialty Start Date End Date Eliud Peñaloza APRN.COLD ROLL C[employer]ER [address] [place] [id number] PCP - General Family Medicine 06/20/23 Parole Director Relationship Specialty Start Date End Date Eliud Peñaloza APRN.COLD ROLL CATCHER [address] [place] [id number] PCP - General Family Medicine 06/20/23 Parole Director Relationship Specialty Start Date End Date Eliud Peñaloza APRN.COLD ROLL CATCHER [address] [place] [id number] PCP - General Family Medicine 06/20/23 Parole Director Relationship Specialty Start Date End Date Eliud Peñaloza APRN.COLD ROLL CATCHER [address] [place] [id number] PCP - General Family Medicine 06/20/23 Parole Director Relationship Specialty Start Date End Date Eliud Peñaloza APRN.COLD ROLL CATCHER [address] [place] [id number] PCP - General Family Medicine 06/20/23 Parole Director Relationship Specialty Start Date End Date Eliud Peñaloza APRN.COLD ROLL CATCHER [address] [place] [id number] PCP - General Family Medicine 06/20/23 Parole Director Relationship Specialty Start Date End Date Eliud Peñaloza APRN.COLD ROLL CATCHER [facility] [place], [place] [id number] PCP - General Family Medicine 06/20/23 Team Status: Inactive Member Role Status Dates Eliud Peñaloza CODING QUALITY ANALYST-C Primary Care Provider Active Start: July 24, 2024 End: July 24, 2024 Eliud Peñaloza NP-C Referring Provider Active Start: July 24, 2024 End: July 24, 2024 Dr. Jacki Jernigan MD Attending Provider Active Start: July 24, 2024 End: July 24, 2024 Team Status: Inactive Member Role Status Dates Eliud Peñaloza NP-C Primary Care Provider Active Start: July 29, 2024 End: July 29, 2024 Dr. Jacki Jernigan MD Attending Provider Active Start: July 29, 2024 End: July 29, 2024 Dr. Jacki Jernigan MD Referring Provider Active Start: July 29, 2024 End: July 29, 2024 Team Status: Active Member Role Status Dates Eliud Peñaloza NP-C Primary Care Provider Active Start: July 29, 2024 End: July 29, 2024 Dr. Dequan Alejandra MD Attending Provider Active S tart: July 29, 2024 End: July 29, 2024 Dr. Jacki Jernigan MD Referring Provider Active Start: July 29, 2024 End: July 29, 2024 Team Status: Inactive Member Role Status Dates Eliud Peñaloza CODING QUALITY ANALYST-C Primary Care Provider Active Start: August 06, 2024 End: August 06, 2024 Eliud Peñaloza NP-C Referring Provider Active Start: August 06, 2024 End: August 06, 2024 Dr. Elke Voss DO Attending Provider Activ e Start: August 06, 2024 End: August 06, 2024 Team Status: Inactive Member Role Status Dates Eliud Peñaloza CODING QUALITY ANALYST-C Primary Care Provider Active Start: September 03, 2024 End: September 03, 2024 Eliud Peñaloza CODING QUALITY ANALYST-C Referring Provider Active Start: September 03, 2024 End: September 03, 2024 Dr. Jacki Jernigan MD Attending Provider Active Start: September 03, 2024 End: September 03, 2024 Team Status: Inactive Member Role Status Dates Eliud Peñaloza CODING QUALITY ANALYST-C Primary Care Provider Active Start: September 30, 2024 End: September 30, 2024 Eliud Peñaloza CODING QUALITY ANALYST-C Referring Provider Active Start: September 30, 2024 End: September 30, 2024 Debra Montalvo CNM Attending Provider Active S tart: September 30, 2024 End: September 30, 2024 Team Status: Active Member Role/Relationship Status Dates Eliud Peñaloza CODING QUALITY ANALYST-C Primary Care Provider Active Team Status: Inactive Member Role/Relationship Status Dates Eliud Peñaloza CODING QUALITY ANALYST-C Primary Care Provider Active Start: July 12, 2024 End: July 12, 2024 Eliud Peñaloza CODING QUALITY ANALYST-C Referring Provider Active Start: July 12, 2024 End: July 12, 2024 Debra Montalvo CNM Attending Provider Active S tart: July 12, 2024 End: July 12, 2024 Team Status: Inactive Member Role/Relationship Status Dates Eliud Peñaloza CODING QUALITY ANALYST-C Primary Care Provider Active Start: July 12, 2024 End: July 12, 2024 Debra Montalvo CNM Attending Provider Active S tart: July 12, 2024 End: July 12, 2024 Debra Montalvo CNM Referring Provider Active S tart: July 12, 2024 End: July 12, 2024 Team Status: Inactive Member Role/Relationship Status Dates Eliud Peñaloza CODING QUALITY ANALYST-C Primary Care Provider Active Start: July 24, 2024 End: July 24, 2024 Eliud Peñaloza CODING QUALITY ANALYST-C Referring Provider Active Start: July 24, 2024 End: July 24, 2024 Dr. Jacki Jernigan MD Attending Provider Active Start: July 24, 2024 End: July 24, 2024 Team Status: Inactive Member Role/Relationship Status Dates Eliud Peñaloza CODING QUALITY ANALYST-C Primary Care Provider Active Start: July 29, 2024 End: July 29, 2024 Dr. Jacki Jernigan MD Attending Provider Active Start: July 29, 2024 End: July 29, 2024 Dr. Jacki Jernigan MD Referring Provider Active Start: July 29, 2024 End: July 29, 2024 Team Status: Active Member Role/Relationship Status Dates Eliud Peñaloza , CODING QUALITY ANALYST-C Primary Care Provider Active Start: July 29, 2024 End: July 29, 2024 Dr. Dequan Alejandra MD Attending Provider Active S tart: July 29, 2024 End: July 29, 2024 Dr. Jacki Jernigan MD Referring Provider Active Start: July 29, 2024 End: July 29, 2024 Team Status: Inactive Member Role/Relationship Status Dates Eliud Peñaloza , CODING QUALITY ANALYST-C Primary Care Provider Active Start: August 06, 2024 End: August 06, 2024 Eliud Peñaloza CODING QUALITY ANALYST-C Referring Provider Active Start: August 06, 2024 End: August 06, 2024 Dr. Elke Voss DO Attending Provider Activ e Start: August 06, 2024 End: August 06, 2024 Team Status: Inactive Member Role/Relationship Status Dates Eliud Peñaloza CODING QUALITY ANALYST-C Primary Care Provider Active Start: September 03, 2024 End: September 03, 2024 Eliud Peñaloza CODING QUALITY ANALYST-C Referring Provider Active Start: September 03, 2024 End: September 03, 2024 Dr. Jacki Jernigan MD Attending Provider Active Start: September 03, 2024 End: September 03, 2024 Team Status: Inactive Member Role/Relationship Status Dates Eliud Peñaloza CODING QUALITY ANALYST-C Primary Care Provider Active Start: September 30, 2024 End: September 30, 2024 Eliud Peñaloza CODING QUALITY ANALYST-C Referring Provider Active Start: September 30, 2024 End: September 30, 2024 Debra Montalvo CNM Attending Provider Active S tart: September 30, 2024 End: September 30, 2024 Team Status: Inactive Member Role/Relationship Status Dates Eliud Peñaloza , CODING QUALITY ANALYST-C Primary Care Provider Active Start: November 06, 2024 End: November 06, 2024 Eliud Peñaloza CODING QUALITY ANALYST-C Referring Provider Active Start: November 06, 2024 End: November 06, 2024 Dr. Jacki Jernigan MD Attending Provider Active Start: November 06, 2024 End: November 06, 2024 Parole Director Relationship Specialty Start Date End Date Eliud Peñaloza APRN.CNP [address] [place] [address] PCP - General Family Medicine 06/20/23 Team Status: Inactive Member Role/Relationship Status Dates Eliud Peñaloza CODING QUALITY ANALYST-C Primary Care Provider Active Start: July 24, 2024 End: July 24, 2024 Eliud Peñaloza NP-C Referring Provider Active Start: July 24, 2024 End: July 24, 2024 Dr. Jacki Jernigan MD Attending Provider Active Start: July 24, 2024 End: July 24, 2024 Team Status: Inactive Member Role/Relationship Status Dates Eliud Peñaloza CODING QUALITY ANALYST-C Primary Care Provider Active Start: July 29, 2024 End: July 29, 2024 Dr. Jacki Jernigan MD Attending Provider Active Start: July 29, 2024 End: July 29, 2024 Dr. Jacki Jernigan MD Referring Provider Active Start: July 29, 2024 End: July 29, 2024 Team Status: Active Member Role/Relationship Status Dates Eliud Peñaloza NP-C Primary Care Provider Active Start: July 29, 2024 End: July 29, 2024 Dr. Dequan Alejandra MD Attending Provider Active S tart: July 29, 2024 End: July 29, 2024 Dr. Jacki Jernigan MD Referring Provider Active Start: July 29, 2024 End: July 29, 2024 Team Status: Inactive Member Role/Relationship Status Dates Eliud Peñaloza CODING QUALITY ANALYST-C Primary Care Provider Active Start: August 06, 2024 End: August 06, 2024 Eliud Peñaloza NP-C Referring Provider Active Start: August 06, 2024 End: August 06, 2024 Dr. Elke Voss DO Attending Provider Activ e Start: August 06, 2024 End: August 06, 2024 Team Status: Inactive Member Role/Relationship Status Dates Eliud Peñaloza CODING QUALITY ANALYST-C Primary Care Provider Active Start: September 03, 2024 End: September 03, 2024 Eliud Knoble , CODING QUALITY ANALYST-C Referring Provider Active Start: September 03, 2024 End: September 03, 2024 Dr. Jacki Jernigan MD Attending Provider Active Start: September 03, 2024 End: September 03, 2024 Team Status: Inactive Member Role/Relationship Status Dates Eliud Peñaloza , CODING QUALITY ANALYST-C Primary Care Provider Active Start: September 30, 2024 End: September 30, 2024 Eliud Peñaloza CODING QUALITY ANALYST-C Referring Provider Active Start: September 30, 2024 End: September 30, 2024 Debra Montalvo CNM Attending Provider Active S tart: September 30, 2024 End: September 30, 2024 Team Status: Inactive Member Role/Relationship Status Dates Eliud Peñaloza , CODING QUALITY ANALYST-C Primary Care Provider Active Start: November 06, 2024 End: November 06, 2024 Eliud Peñaloza , CODING QUALITY ANALYST-C Referring Provider Active Start: November 06, 2024 End: November 06, 2024 Dr. Jacki Jernigan MD Attending Provider Active Start: November 06, 2024 End: November 06, 2024 Team Status: Inactive Member Role/Relationship Status Dates Eliud Peñaloza , CODING QUALITY ANALYST-C Primary Care Provider Active Start: November 20, 2024 End: November 20, 2024 Eliud Peñaloza , CODING QUALITY ANALYST-C Referring Provider Active Start: November 20, 2024 End: November 20, 2024 Sherry Barone NP, CODING QUALITY ANALYST-C Attending Provider Active Start: November 20, 2024 End: November 20, 2024 Team Status: Active Member Role/Relationship Status Dates Eliud Peñaloza , CODING QUALITY ANALYST-C Primary Care Provider Active Start: November 20, 2024 Dr. Jacki Jernigan MD Attending Provider Active Start: November 20, 2024 Team Status: Inactive Member Role/Relationship Status Dates Eliud Peñaloza , CODING QUALITY ANALYST-C Primary Care Provider Active Start: July 29, 2024 End: July 29, 2024 Dr. Jacki Jernigan MD Attending Provider Active Start: July 29, 2024 End: July 29, 2024 Dr. Jacki Jernigan MD Referring Provider Active Start: July 29, 2024 End: July 29, 2024 Team Status: Active Member Role/Relationship Status Dates Eliud Peñaloza , CODING QUALITY ANALYST-C Primary Care Provider Active Start: July 29, 2024 End: July 29, 2024 Dr. Dequan Alejandra MD Attending Provider Active S tart: July 29, 2024 End: July 29, 2024 Dr. Jacki Jernigan MD Referring Provider Active Start: July 29, 2024 End: July 29, 2024 Team Status: Inactive Member Role/Relationship Status Dates Eliud Peñaloza , CODING QUALITY ANALYST-C Primary Care Provider Active Start: August 06, 2024 End: August 06, 2024 Eliud Peñaloza CODING QUALITY ANALYST-C Referring Provider Active Start: August 06, 2024 End: August 06, 2024 Dr. Elke Voss DO Attending Provider Activ e Start: August 06, 2024 End: August 06, 2024 Team Status: Inactive Member Role/Relationship Status Dates Eliud Peñaloza CODING QUALITY ANALYST-C Primary Care Provider Active Start: September 03, 2024 End: September 03, 2024 Eliud Peñaloza , CODING QUALITY ANALYST-C Referring Provider Active Start: September 03, 2024 End: September 03, 2024 Dr. Jacki Jernigan MD Attending Provider Active Start: September 03, 2024 End: September 03, 2024 Team Status: Inactive Member Role/Relationship Status Dates Eliud Peñaloza , CODING QUALITY ANALYST-C Primary Care Provider Active Start: September 30, 2024 End: September 30, 2024 Eliud Peñaloza CODING QUALITY ANALYST-C Referring Provider Active Start: September 30, 2024 End: September 30, 2024 Debra Montalvo CNM Attending Provider Active S tart: September 30, 2024 End: September 30, 2024 Team Status: Inactive Member Role/Relationship Status Dates Eluid Peñaloza , CODING QUALITY ANALYST-C Primary Care Provider Active Start: November 06, 2024 End: November 06, 2024 Eliud Peñaloza CODING QUALITY ANALYST-C Referring Provider Active Start: November 06, 2024 End: November 06, 2024 Dr. Jacki Jernigan MD Attending Provider Active Start: November 06, 2024 End: November 06, 2024 Team Status: Inactive Member Role/Relationship Status Dates Eliud Peñaloza , CODING QUALITY ANALYST-C Primary Care Provider Active Start: November 20, 2024 End: November 20, 2024 Eliud Peñaloza CODING QUALITY ANALYST-C Referring Provider Active Start: November 20, 2024 End: November 20, 2024 Sherry Barone NP, CODING QUALITY ANALYST-C Attending Provider Active Start: November 20, 2024 End: November 20, 2024 Team Status: Inactive Member Role/Relationship Status Dates Eliud Peñaloza , CODING QUALITY ANALYST-C Primary Care Provider Active Start: November 20, 2024 End: November 20, 2024 Dr. Jacki Jernigan MD Attending Provider Active Start: November 20, 2024 End: November 20, 2024 Team Status: Inactive Member Role/Relationship Status Dates Eliud Peñaloza , CODING QUALITY ANALYST-C Primary Care Provider Active Start: August 06, 2024 End: August 06, 2024 Eliud Peñaloza , CODING QUALITY ANALYST-C Referring Provider Active Start: August 06, 2024 End: August 06, 2024 Dr. Elke Voss DO Attending Provider Activ e Start: August 06, 2024 End: August 06, 2024 Team Status: Inactive Member Role/Relationship Status Dates Eliud Peñaloza , CODING QUALITY ANALYST-C Primary Care Provider Active Start: September 03, 2024 End: September 03, 2024 Eliud Peñaloza CODING QUALITY ANALYST-C Referring Provider Active Start: September 03, 2024 End: September 03, 2024 Dr. Jacki Jernigan MD Attending Provider Active Start: September 03, 2024 End: September 03, 2024 Team Status: Inactive Member Role/Relationship Status Dates Eliud Peñaloza , CODING QUALITY ANALYST-C Primary Care Provider Active Start: September 30, 2024 End: September 30, 2024 Eliud Peñaloza , CODING QUALITY ANALYST-C Referring Provider Active Start: September 30, 2024 End: September 30, 2024 Debra Montalvo CNM Attending Provider Active S tart: September 30, 2024 End: September 30, 2024 Team Status: Inactive Member Role/Relationship Status Dates Eliud Peñaloza , CODING QUALITY ANALYST-C Primary Care Provider Active Start: November 06, 2024 End: November 06, 2024 Eliud Peñaloza , CODING QUALITY ANALYST-C Referring Provider Active Start: November 06, 2024 End: November 06, 2024 Dr. Jacki Jernigan MD Attending Provider Active Start: November 06, 2024 End: November 06, 2024 Team Status: Inactive Member Role/Relationship Status Dates Eliud Peñaloza , CODING QUALITY ANALYST-C Primary Care Provider Active Start: November 20, 2024 End: November 20, 2024 Eliud Peñaloza , CODING QUALITY ANALYST-C Referring Provider Active Start: November 20, 2024 End: November 20, 2024 Sherry Barone NP, CODING QUALITY ANALYST-C Attending Provider Active Start: November 20, 2024 End: November 20, 2024 Team Status: Inactive Member Role/Relationship Status Dates Eliud Peñaloza , CODING QUALITY ANALYST-C Primary Care Provider Active Start: November 20, 2024 End: November 20, 2024 Dr. Jacki Jernigan MD Attending Provider Active Start: November 20, 2024 End: November 20, 2024 Team Status: Inactive Member Role/Relationship Status Dates Eliud Peñaloza , CODING QUALITY ANALYST-C Primary Care Provider Active Start: November 27, 2024 End: November 27, 2024 Dr. Jacki Jernigan MD Attending Provider Active Start: November 27, 2024 End: November 27, 2024 Dr. Jacki Jernigan MD Referring Provider Active Start: November 27, 2024 End: November 27, 2024 Team Status: Inactive Member Role/Relationship Status Dates Eliud Peñaloza , CODING QUALITY ANALYST-C Primary Care Provider Active Start: December 04, 2024 End: December 04, 2024 Eliud Peñaloza CODING QUALITY ANALYST-C Referring Provider Active Start: December 04, 2024 End: December 04, 2024 Dr. Elke Voss DO Attending Provider Activ e Start: December 04, 2024 End: December 04, 2024 Team Status: Active Member Role/Relationship Status Dates Eliud Peñaloza , CODING QUALITY ANALYST-C Primary Care Provider Active Start: December 04, 2024 Dr. Elke Voss DO Attending Provider Activ e Start: December 04, 2024 Dr. Elke Voss DO Referring Provider Activ e Start: December 04, 2024 Team Status: Inactive Member Role/Relationship Status Dates Eliud Peñaloza , CODING QUALITY ANALYST-C Primary Care Provider Active Start: September 03, 2024 End: September 03, 2024 Eliud Peñaloza CODING QUALITY ANALYST-C Referring Provider Active Start: September 03, 2024 End: September 03, 2024 Dr. Jacki Jernigan MD Attending Provider Active Start: September 03, 2024 End: September 03, 2024 Team Status: Inactive Member Role/Relationship Status Dates Eliud Peñaloza , CODING QUALITY ANALYST-C Primary Care Provider Active Start: September 30, 2024 End: September 30, 2024 Eliud Peñaloza , CODING QUALITY ANALYST-C Referring Provider Active Start: September 30, 2024 End: September 30, 2024 Debra Montalvo CNM Attending Provider Active S tart: September 30, 2024 End: September 30, 2024 Team Status: Inactive Member Role/Relationship Status Dates Eliud Peñaloza , CODING QUALITY ANALYST-C Primary Care Provider Active Start: November 06, 2024 End: November 06, 2024 Eliud Peñaloza CODING QUALITY ANALYST-C Referring Provider Active Start: November 06, 2024 End: November 06, 2024 Dr. Jacki Jernigan MD Attending Provider Active Start: November 06, 2024 End: November 06, 2024 Team Status: Inactive Member Role/Relationship Status Dates Eliud Peñaloza , CODING QUALITY ANALYST-C Primary Care Provider Active Start: November 20, 2024 End: November 20, 2024 Eliud Peñaloza , CODING QUALITY ANALYST-C Referring Provider Active Start: November 20, 2024 End: November 20, 2024 Sherry Barone NP, CODING QUALITY ANALYST-C Attending Provider Active Start: November 20, 2024 End: November 20, 2024 Team Status: Inactive Member Role/Relationship Status Dates Eliud Peñaloza , CODING QUALITY ANALYST-C Primary Care Provider Active Start: November 20, 2024 End: November 20, 2024 Dr. Jacki Jernigan MD Attending Provider Active Start: November 20, 2024 End: November 20, 2024 Team Status: Inactive Member Role/Relationship Status Dates Eliud Peñaloza , CODING QUALITY ANALYST-C Primary Care Provider Active Start: November 27, 2024 End: November 27, 2024 Dr. Jacki Jernigan MD Attending Provider Active Start: November 27, 2024 End: November 27, 2024 Dr. Jacki Jernigan MD Referring Provider Active Start: November 27, 2024 End: November 27, 2024 Team Status: Inactive Member Role/Relationship Status Dates Eliud Peñaloza CODING QUALITY ANALYST-C Primary Care Provider Active Start: December 04, 2024 End: December 04, 2024 Eliud Peñaloza , CODING QUALITY ANALYST-C Referring Provider Active Start: December 04, 2024 End: December 04, 2024 Dr. Elke Voss DO Attending Provider Activ e Start: December 04, 2024 End: December 04, 2024 Team Status: Inactive Member Role/Relationship Status Dates Eliud Peñaloza CODING QUALITY ANALYST-C Primary Care Provider Active Start: December 04, 2024 End: December 04, 2024 Dr. Elke Voss , Attending Provider Activ e Start: December 04, 2024 End: December 04, 2024 Dr. Elke Voss , Referring Provider Activ e Start: December 04, 2024 End: December 04, 2024 Team Status: Inactive Member Role/Relationship Status Dates Eliud Peñaloza CODING QUALITY ANALYST-C Primary Care Provider Active Start: December 18, 2024 End: December 18, 2024 Eliud Peñaloza CODING QUALITY ANALYST-C Referring Provider Active Start: December 18, 2024 End: December 18, 2024 Sherry Barone NP, CODING QUALITY ANALYST-C Attending Provider Active Start: December 18, 2024 End: December 18, 2024 Team Status: Inactive Member Role/Relationship Status Dates Eliud Peñaloza CODING QUALITY ANALYST-C Primary Care Provider Active Start: January 01, 2025 End: January 01, 2025 Eliud Peñaloza CODING QUALITY ANALYST-C Referring Provider Active Start: January 01, 2025 End: January 01, 2025 Debra Montalvo CNM Attending Provider Active S tart: January 01, 2025 End: January 01, 2025 Team Status: Active Member Role/Relationship Status Dates Eliud Peñaloza CODING QUALITY ANALYST-C Primary care physician Active Team Status: Inactive Member Role/Relationship Status Dates Eliud Peñaloza CODING QUALITY ANALYST-C Primary care physician Active Start: September 30, 2024 End: September 30, 2024 Eliud Peñaloza CODING QUALITY ANALYST-C Referring Provider Active Start: September 30, 2024 End: September 30, 2024 Debra Montalvo CNM Attending physician Active Start: September 30, 2024 End: September 30, 2024 Team Status: Inactive Member Role/Relationship Status Dates Eliud Peñaloza CODING QUALITY ANALYST-C Primary care physician Active Start: November 06, 2024 End: November 06, 2024 Eliud Peñaloza CODING QUALITY ANALYST-C Referring Provider Active Start: November 06, 2024 End: November 06, 2024 Dr. Jacki Jernigan MD Attending physician Active Start: November 06, 2024 End: November 06, 2024 Team Status: Inactive Member Role/Relationship Status Dates Eliud Knoble , CODING QUALITY ANALYST-C Primary care physician Active Start: November 20, 2024 End: November 20, 2024 Eliud Peñaloza CODING QUALITY ANALYST-C Referring Provider Active Start: November 20, 2024 End: November 20, 2024 Sherry Barone NP, CODING QUALITY ANALYST-C Attending physician Active Start: November 20, 2024 End: November 20, 2024 Team Status: Inactive Member Role/Relationship Status Dates Eliud Peñaloza CODING QUALITY ANALYST-C Primary care physician Active Start: November 20, 2024 End: November 20, 2024 Dr. Jacki Jernigan MD Attending physician Active Start: November 20, 2024 End: November 20, 2024 Team Status: Inactive Member Role/Relationship Status Dates Eliud Peñaloza CODING QUALITY ANALYST-C Primary care physician Active Start: November 27, 2024 End: November 27, 2024 Dr. Jacki Jernigan MD Attending physician Active Start: November 27, 2024 End: November 27, 2024 Dr. Jacki Jernigan MD Referring Provider Active Start: November 27, 2024 End: November 27, 2024 Team Status: Inactive Member Role/Relationship Status Dates Eliud Peñaloza CODING QUALITY ANALYST-C Primary care physician Active Start: December 04, 2024 End: December 04, 2024 Eliud Peñaloza CODING QUALITY ANALYST-C Referring Provider Active Start: December 04, 2024 End: December 04, 2024 Dr. Elke Voss DO Attending physician Acti ve Start: December 04, 2024 End: December 04, 2024 Team Status: Inactive Member Role/Relationship Status Dates Eliud Peñaloza CODING QUALITY ANALYST-C Primary care physician Active Start: December 04, 2024 End: December 04, 2024 Dr. Elke Voss DO Attending physician Acti ve Start: December 04, 2024 End: December 04, 2024 Dr. Elke Voss DO Referring Provider Activ e Start: December 04, 2024 End: December 04, 2024 Team Status: Inactive Member Role/Relationship Status Dates Eliud Peñaloza CODING QUALITY ANALYST-C Primary care physician Active Start: December 18, 2024 End: December 18, 2024 Eliud Peñaloza CODING QUALITY ANALYST-C Referring Provider Active Start: December 18, 2024 End: December 18, 2024 Sherry Barone NP, CODING QUALITY ANALYST-C Attending physician Active Start: December 18, 2024 End: December 18, 2024 Team Status: Inactive Member Role/Relationship Status Dates Eliud Peñaloza CODING QUALITY ANALYST-C Primary care physician Active Start: January 01, 2025 End: January 01, 2025 Eliud Peñaloza , CODING QUALITY ANALYST-C Referring Provider Active Start: January 01, 2025 End: January 01, 2025 Debra Montalvo CNM Attending physician Active Start: January 01, 2025 End: January 01, 2025 Team Status: Inactive Member Role/Relationship Status Dates Eliud Peñaloza CODING QUALITY ANALYST-C Primary care physician Active Start: January 13, 2025 End: January 13, 2025 Eliud Peñaloza CODING QUALITY ANALYST-C Referring Provider Active Start: January 13, 2025 End: January 13, 2025 Dr. Jacki Jernigan MD Attending physician Active Start: January 13, 2025 End: January 13, 2025 Team Status: Inactive Member Role/Relationship Status Dates Eliud Peñaloza CODING QUALITY ANALYST-C Primary care physician Active Start: January 13, 2025 End: January 13, 2025 Dr. Jacki Jernigan MD Attending physician Active Start: January 13, 2025 End: January 13, 2025 Dr. Jacki Jernigan MD Referring Provider Active Start: January 13, 2025 End: January 13, 2025 Team Status: Inactive Member Role/Relationship Status Dates Eliud Peñaloza CODING QUALITY ANALYST-C Primary care physician Active Start: January 24, 2025 End: January 24, 2025 Eliud Peñaloza CODING QUALITY ANALYST-C Referring Provider Active Start: January 24, 2025 End: January 24, 2025 Dr. Elke Voss DO Attending physician Acti ve Start: January 24, 2025 End: January 24, 2025 INFORMATION SOURCE (unrecogn ized section and content) DATE CREATED AUTHOR 03/02/2023 [facility] DATE CREATED AUTHOR AUTHOR'S ORGANIZ ATION 07/12/2023 [facility] DATE CREATED AUTHOR AUTHOR'S ORGANIZ ATION 07/07/2024 [facility] DATE CREATED AUTHOR AUTHOR'S ORGANIZ ATION 01/15/2025 [facility] DATE CREATED AUTHOR AUTHOR'S ORGANIZ ATION 02/06/2025 [facility] Source Comments (unrecognize d section and content) In the event this informatio n is protected by the Federal Confidentiality of Alcohol and Drug Abuse Patient Records regulations: The Federal rules restrict any use of the information to criminally investigate or prosecute any alcohol or drug abuse patient.[facility] the event this information is protected by the Federal Confidentiality of Alcohol and Drug Abuse Patient Records regulations: The Federal rules restrict any use of the information to criminally investigate or prosecute any alcohol or drug abuse patient.[facility] HospitalIn the event this information is protected by the Federal Confidentiality of Alcohol and Drug Abuse Patient Records regulations: The Federal rules restrict any use of the information to criminally investigate or prosecute any alcohol or drug abuse patient.[facility] HospitalIn the event this information is protected by the Federal Confidentiality of Alcohol and Drug Abuse Patient Records regulations: The Federal rules restrict any use of the information to criminally investigate or prosecute any alcohol or drug abuse patient.[facility] HospitalIn the event this information is protected by the Federal Confidentiality of Alcohol and Drug Abuse Patient Records regulations: The Federal rules restrict any use of the information to criminally investigate or prosecute any alcohol or drug abuse patient.[facility] HospitalIn the event this information is protected by the Federal Confidentiality of Alcohol and Drug Abuse Patient Records regulations: The Federal rules restrict any use of the information to criminally investigate or prosecute any alcohol or drug abuse patient.[facility] HospitalIn the event this information is protected by the Federal Confidentiality of Alcohol and Drug Abuse Patient Records regulations: The Federal rules restrict any use of the information to criminally investigate or prosecute any alcohol or drug abuse patient.[facility] HospitalIn the event this information is protected by the Federal Confidentiality of Alcohol and Drug Abuse Patient Records regulations: The Federal rules restrict any use of the information to criminally investigate or prosecute any alcohol or drug abuse patient.[facility] HospitalIn the event this information is protected by the Federal Confidentiality of Alcohol and Drug Abuse Patient Records regulations: The Federal rules restrict any use of the information to criminally investigate or prosecute any alcohol or drug abuse patient.[facility] HospitalIn the event this information is protected by the Federal Confidentiality of Alcohol and Drug Abuse Patient Records regulations: The Federal rules restrict any use of the information to criminally investigate or prosecute any alcohol or drug abuse patient.[facility] HospitalIn the event this information is protected by the Federal Confidentiality of Alcohol and Drug Abuse Patient Records regulations: The Federal rules restrict any use of the information to criminally investigate or prosecute any alcohol or drug abuse patient.[facility] HospitalIn the event this information is protected by the Federal Confidentiality of Alcohol and Drug Abuse Patient Records regulations: The Federal rules restrict any use of the information to criminally investigate or prosecute any alcohol or drug abuse patient.[facility] HospitalIn the event this information is protected by the Federal Confidentiality of Alcohol and Drug Abuse Patient Records regulations: The Federal rules restrict any use of the information to criminally investigate or prosecute any alcohol or drug abuse patient.[facility] HospitalIn the event this information is protected by the Federal Confidentiality of Alcohol and Drug Abuse Patient Records regulations: The Federal rules restrict any use of the information to criminally investigate or prosecute any alcohol or drug abuse patient.[facility] HospitalIn the event this information is protected by the Federal Confidentiality of Alcohol and Drug Abuse Patient Records regulations: The Federal rules restrict any use of the information to criminally investigate or prosecute any alcohol or drug abuse patient.[facility] HospitalIn the event this information is protected by the Federal Confidentiality of Alcohol and Drug Abuse Patient Records regulations: The Federal rules restrict any use of the information to criminally investigate or prosecute any alcohol or drug abuse patient.[facility] HospitalIn the event this information is protected by the Federal Confidentiality of Alcohol and Drug Abuse Patient Records regulations: The Federal rules restrict any use of the information to criminally investigate or prosecute any alcohol or drug abuse patient.[facility] HospitalIn the event this information is protected by the Federal Confidentiality of Alcohol and Drug Abuse Patient Records regulations: The Federal rules restrict any use of the information to criminally investigate or prosecute any alcohol or drug abuse patient.[facility] HospitalIn the event this information is protected by the Federal Confidentiality of Alcohol and Drug Abuse Patient Records regulations: The Federal rules restrict any use of the information to criminally investigate or prosecute any alcohol or drug abuse patient.[facility] HospitalIn the event this information is protected by the Federal Confidentiality of Alcohol and Drug Abuse Patient Records regulations: The Federal rules restrict any use of the information to criminally investigate or prosecute any alcohol or drug abuse patient.[facility] HospitalIn the event this information is protected by the Federal Confidentiality of Alcohol and Drug Abuse Patient Records regulations: The Federal rules restrict any use of the information to criminally investigate or prosecute any alcohol or drug abuse patient.[facility] HospitalIn the event this information is protected by the Federal Confidentiality of Alcohol and Drug Abuse Patient Records regulations: The Federal rules restrict any use of the information to criminally investigate or prosecute any alcohol or drug abuse patient.[facility] HospitalIn the event this information is protected by the Federal Confidentiality of Alcohol and Drug Abuse Patient Records regulations: The Federal rules restrict any use of the information to criminally investigate or prosecute any alcohol or drug abuse patient.[facility] HospitalIn the event this information is protected by the Federal Confidentiality of Alcohol and Drug Abuse Patient Records regulations: The Federal rules restrict any use of the information to criminally investigate or prosecute any alcohol or drug abuse patient.[facility] HospitalIn the event this information is protected by the Federal Confidentiality of Alcohol and Drug Abuse Patient Records regulations: The Federal rules restrict any use of the information to criminally investigate or prosecute any alcohol or drug abuse patient.[facility] HospitalIn the event this information is protected by the Federal Confidentiality of Alcohol and Drug Abuse Patient Records regulations: The Federal rules restrict any use of the information to criminally investigate or prosecute any alcohol or drug abuse patient.[facility] HospitalIn the event this information is protected by the Federal Confidentiality of Alcohol and Drug Abuse Patient Records regulations: The Federal rules restrict any use of the information to criminally investigate or prosecute any alcohol or drug abuse patient.[facility] HospitalIn the event this information is protected by the Federal Confidentiality of Alcohol and Drug Abuse Patient Records regulations: The Federal rules restrict any use of the information to criminally investigate or prosecute any alcohol or drug abuse patient.[facility] HospitalIn the event this information is protected by the Federal Confidentiality of Alcohol and Drug Abuse Patient Records regulations: The Federal rules restrict any use of the information to criminally investigate or prosecute any alcohol or drug abuse patient.[facility] HospitalIn the event this information is protected by the Federal Confidentiality of Alcohol and Drug Abuse Patient Records regulations: The Federal rules restrict any use of the information to criminally investigate or prosecute any alcohol or drug abuse patient.[facility] HospitalIn the event this information is protected by the Federal Confidentiality of Alcohol and Drug Abuse Patient Records regulations: The Federal rules restrict any use of the information to criminally investigate or prosecute any alcohol or drug abuse patient.[facility] HospitalIn the event this information is protected by the Federal Confidentiality of Alcohol and Drug Abuse Patient Records regulations: The Federal rules restrict any use of the information to criminally investigate or prosecute any alcohol or drug abuse patient.[facility] HospitalIn the event this information is protected by the Federal Confidentiality of Alcohol and Drug Abuse Patient Records regulations: The Federal rules restrict any use of the information to criminally investigate or prosecute any alcohol or drug abuse patient.[facility] HospitalIn the event this information is protected by the Federal Confidentiality of Alcohol and Drug Abuse Patient Records regulations: The Federal rules restrict any use of the information to criminally investigate or prosecute any alcohol or drug abuse patient.[facility] HospitalIn the event this information is protected by the Federal Confidentiality of Alcohol and Drug Abuse Patient Records regulations: The Federal rules restrict any use of the information to criminally investigate or prosecute any alcohol or drug abuse patient.[facility] Reason for Visit (unrecogniz ed section and content) Reason Comments EMG Appointment Reason Comments Establish Care Reason Comments Results Reason Comments Dizziness Reason Comments Thyroid Problem Labs 06/20/23 Specialty Diagnoses / Procedures Referred By Contac t Referred To Contact Endocrinology Diagnoses Thyroid antibody positive Procedures CONSULT TO ENDOCRINOLOGY OFFICE/OUTPATIENT [facility] 60 MINUTES Eliud Peñaloza APRN.COLD ROLL CATCHER [address] [place] [address] Danielle Donato MD [address] [place] [address] Referral ID Status Reason Start Date Expiration Date V isits Requested Visits Authorized [id number] Closed PCP Requested Referral 06/22/2023 06/21/2024 1 1 Reason Comments Question and request for records Reason Comments Results Reason Comments Patient Update Reason Comments ER F/U Specialty Diagnoses / Procedures Referred By Contac t Referred To Contact CT IMAGING Diagnoses Left lower quadrant abdominal pain Procedures CT ABD/PEL W IVCON CT ABD & PELVIS W/CONTRAST Eliud Peñaloza APRN.COLD ROLL CATCHER [address] [place] [address] [facility] [address] [place] [address] Referral ID Status Reason Start Date Expiration Date V isits Requested Visits Authorized [id number] Closed Auto-Generat ed Referral Patient Cleared - Admin/Chairm an/Director advise to proceed or did not respond 07/11/2023 07/11/2023 2 2 Reason Comments Follow Up Reason Comments Yearly Exam Reason Comments Med Change Request Reason Comments Physical Reason Onset Date Comments Refill Request 11/10/2024 Reason Onset Date Comments Refill Request 12/17/2024 Reason Onset Date Comments Refill Request 01/07/2025 Goals (unrecognized section and content) Type Care Experience svdLabor Preferences -CB/BF classes: yeslabor support person: Ericlabor intervention preferences: []pain management options preferred: limitedcut cord/dad catch: nobreastfeeding: yesPP control planned: discusseddiscussed possible routes of delivery and associated risks: []special requests: [] Goals may be documented in an alternate section FOR RECORDS PERTAINING TO PATIENTS WHO ARE OR HAVE BEEN ENROLLED IN A CHEMICAL DEPENDENCY/SUBSTANCEABUSE PROGRAM, SOME INFORMATION MAY BE OMITTED. This clinical summary was aggregated from multiple sources. Caution should be exercised in using it in the provision of clinical care. This summary normalizes information from multiple sources, and as a consequence, information in this document may materially change the coding, format and clinical context of patient data. In addition, data may be omitted in some cases. CLINICAL DECISIONS SHOULD BE BASED ON THE PRIMARY CLINICAL RECORDS. [facility]. provides no warranty or guarantee of the accuracy or completeness of information in this document.
--- OUTSIDE RECORDS SUMMARY | 2025-02-06 17:09 | XMS RPT_ITS | CCD ---
Author Organization [facility] Care Team Providers Care Marketing Planning Manager Name Role Phone DR FARIDEH NORTH DO Primary Care Physician [phone] DR FARIDEH NORTH DO Attending Unavailable DR FARIDEH NORTH DO Primary Care Unavailable Jimmy (Ms), Dorie Primary Care Provider Marcelino Peñaloza COLLEGE INTERN.FABRIZIO, Eliud Primary Care Provider Jimmy (Ms), Dorie Primary Care Provider Marcelino gongora KNOBLE, ELIUD Referring Unavailable KNOBLE, ELIUD Primary Care Unavailable KNOBLE, ELIUD Referring Unavailable KNOBLE, ELIUD Primary Care Unavailable [place] COLLEGE INTERN.HEAD ATHLETIC TRAINER/STRENGTH COACH, Eliud Primary Care Provider KNOBLE, EILUD Primary Care Unavailable KNOBLE, ELIUD Referring Unavailable KNOBLE, ELIUD Primary Care Unavailable KNOBLE, EILUD Attending Unavailable KNOBLE, ELIUD Attending Unavailable KNOBLE, [...] Care Unavailable KNOBLE, ELIUD Attending Unavailable [place] WELT BEATER-C, Eliud Primary Care Provider Laura Jackson RN Attending Provider Unavailbeth Peñaloza WELT BEATER-C, Eliud Referring Provider Elan MORSE, Debra Attending Provider Elan CNM, Debra Referring Provider [phone] Ander CASTANEDA, Dr. Echeverria Attending Provider Dr. Jacki Jernigan MD Referring Provider [phone] [phone] CASTANEDA, Dr. Baires Attending Provider Dr. Elke Voss DO Attending Provider [place] WELT BEATER-C, Eliud Primary Care Provider [place] WELT BEATER-C, Eliud Primary Care Provider [place] WELT BEATER-C, Eliud Referring Provider Elan MORSE, Debra Attending Provider [phone] [place] WELT BEATER-C, Sherry Attending Provider [place] WELT BEATER-C, Eliud Primary Care Provider Ander CASTANEDA, Dr. Echeverria Attending Provider [place] WELT BEATER-C, Eliud Referring Provider [place] WELT BEATER-C, Eliud Primary Care Provider Ander CASTANEDA, Dr. Echeverria Attending Provider Dr. Jacki Jernigan MD Referring Provider Dax Nuñez DO, Dr. Bedoya Referring Provider [place] WELT BEATER-C, Eliud Primary Care Provider [place] WELT BEATER-C, Eliud Referring Provider Dax Nuñez DO, Dr. [...] MARCANTHJACKI BERMEO E Referring Unavailabl e [place] WELT BEATER-C, Eliud Primary Care Physician Knlisa WELT BEATER-C, Eliud Referring Provider Debra Montalvo CNM Attending Physician [phone] Ander CASTANEDA, Dr. Echeverria Attending Physician Lizabeth WELT BEATER-CSherry Attending Physician [phone] Dax Nuñez DO, Dr. [...] Unavailable Knoble, Eliud Primary Care Unavailable Knoble, Eilud Referring Unavailable Elke Voss Attending Unavailabl e Knoble, Eliud Primary Care Unavailable Knoble, Eliud Primary Care Unavailable Jacki Jernigan Referring Unavailable Dequan Alejandra Attending Unavailable Lizabeth WELT BEATER, Sherry Attending Unavailable Knoble, Eliud Primary Care Unavailable Knoble, Eliud Referring Unavailable Lizabeth WELT BEATER, Sherry Attending Unavailable Knoble, Eliud Referring Unavailable Knoble, Eliud Primary Care Unavailable Dafne Vossnifer Referring Unavailabl e Rosalese Elke Nuñez Attending Unavailabl e Knoble, Eliud Primary Care Unavailable Allergies Allergy Classification Reported Allergen(s) Allergy Type Date of Onset Reaction(s) Facility (3 sources) tea tree topical; Translations: [tea tree topical] Allergy to substance Eruption of skin (disorder), Weal (disorder) [facility] (20 sources) Tea Tree; Translations: [TEA TREE] Drug Allergy 2 [facility] Work Phone: Comment on above: TEA TREE OIL (16 sources) cow milk allergenic extract Drug Allergy 4 GI upset [facility] (16 sources) Wheat gluten extract Drug Allergy 4 GI upset [facility] (1 source) TEA TREE OIL; Translations: [TEA TREE OIL] Propensity to adverse reactions to drug (disorder) 5 [facility] (1 source) Gluten Drug allergy (disorder) 5 [facility] (1 source) Milk Drug allergy (disorder) 5 [facility] (1 source) tea tree Drug allergy (disorder) 5 [facility] Medications Current Medications Medication Drug Class(es) [...] take 1 dose by mouth once daily [place]-3 Fish Oil Dose : 1,000 mg =, [...] once daily. Take 1 capsule by mo [facility] every day Ibuprofen (20 sources) Nonsteroidal Anti-inflammatory [...] chamber, # 1 EA, 4 Refill(s), Pharmacy: [facility], 160.3, cm, 12/12/19 10:19:00 EDT, [...] on above: Take 1 capsule by mo [facility] once daily. Take 1 capsule (8 mc [...] Comment on above: Take [address] [facility] once daily. Multivitamin Capsule (15 sources) Start: [...] : Mandeep PRR, G1, RADHA 5, : Mandeep (has septal defect) PRR, RADHA , boy [...] rd 22-24w Echo by Ped Ca rd [id number] Residual codes; unclassified (1 source) Unspecified blood [...] Test Name Value Interpretation Reference Range Facility Sub Assembly Team Worker Office Visit Reporton 01-31-2025 Sub Assembly Team Worker Office Visit Report [facility] [address], [address] [place] [address] OFFICE VISIT Date of Service: 01/31/25 MR#: [id number] Acct: [id number] Name: PATTIE BALDERAS MATEO Rep #: [id number] : 1995 Provider: LITO Costa ams Age/Sex: 29/F [place] [facility] [place]: Signed Intake Vital Signs 12/18/24 09:42 01/24/25 13:08 01/31/25 13:25 Height 5 ft 4 in 5 ft 4 in 5 ft 4 in Weight: 184 lb BMI 31.6 BP 134/84 H Intake Visit Reasons: 39wk ob Chief Complaint: 39wk OB Call Center Professional Required: No Is patient in pain?: No [...] exploratory laparotomy Hx of colonoscopy with polypectomy [place] 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 Normal [facility] Sub Assembly Team Worker Office Visit Reporton 01-24-2025 Sub Assembly Team Worker Office Visit Report [facility] [address], [address] [place] [address] OFFICE VISIT Date of Service: 01/24/25 MR#: [id number] Acct: [id number] Name: PATTIE BALDERAS MATEO Rep #: [id number] : 1995 Provider: Dr. Elke Pike DO Age/Sex: 29/F [place] [facility] [place]: Signed Intake Vital Signs 12/18/24 09:42 01/13/25 14:59 01/24/25 13:08 Height 5 ft 4 in 5 ft 4 in 5 ft 4 in Weight: 180 lb 183 lb 8 oz BMI 30.9 31.4 BP 126/80 H 125/81 H Intake Visit Reasons: 38wk ob Call Center Professional Required: No Is patient in pain?: No [...] exploratory laparotomy Hx of colonoscopy with polypectomy [place] 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 -???-???- (more content not included)... Normal [facility] Rule out Beta Strep (Grp. B) on 01-15-2025 CHRISTINA Group B Beta Streptococcus is not isolated. Normal [facility] Comment on above: Performed By: #### M 100.3400 #### [facility] [address] [facility] [place], [address] Laboratory - Chemistry and C hemistry - challengeOrdered By: Jacki Jernigan on 01-13-2025 Glucose Ql (U) Negative [facility] Laboratory - UrinalysisOrder ed By: Jacki Jernigan on 01-13-2025 Protein Ql (U) Negative [facility] Sub Assembly Team Worker Office Visit Reporton 01-13-2025 Sub Assembly Team Worker Office Visit Report [facility] [address], [address] [place] [address] OFFICE VISIT Date of Service: 01/13/25 MR#: [id number] Acct: [id number] Name: PATTIE BALDERAS MATEO Rep #: [id number] 2 : 1995 Provider: Dr. Jacki rosales MD Age/Sex: 29/F [place] [facility] Status: Signed Intake Vital Signs 11/20/24 08:47 01/01/25 09:52 01/13/25 14:59 Height 5 ft 4 in 5 ft 4 in 5 ft 4 in Weight: 177 lb 6 oz 180 lb BMI 30.4 30.9 BP 126/80 H 126/80 H Intake Visit Reasons: 36 WK OB Call Center Professional Required: No Is patient in pain?: No [...] exploratory laparotomy Hx of colonoscopy with polypectomy [place] 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 Normal [facility] Screening beta-hemolytic Str eptococcus cultureOrdered By: Jacki Jernigan on 01-13-2025 Beta-hemolytic Streptococcus culture Group B Beta Streptococcus is not isolated. [facility] Laboratory - Chemistry and C hemistry - challengeOrdered By: Debra Montalvo on 01-01-2025 Glucose Ql (U) Negative [facility] Laboratory - UrinalysisOrder ed By: Debra Montalvo on 01-01-2025 Protein Ql (U) Negative [facility] Sub Assembly Team Worker Office Visit Reporton 01-01-2025 Sub Assembly Team Worker Office Visit Report [facility], [address] [place] [address] OFFICE VISIT Date of Service: 01/01/25 MR#: [id number] Acct: [id number] Name: PATTIE BALDERAS MATEO Rep #: [id number] : 1995 Provider: LITO Costa ams Age/Sex: 29/F [place] [facility] [place]: Signed Intake Vital Signs 11/06/24 10:59 12/18/24 09:42 01/01/25 09:52 Height 5 ft 4 in 5 ft 4 in 5 ft 4 in Weight: 177 lb 6 oz BMI 30.4 BP 126/80 H Intake Visit Reasons: 35wk ob Chief Complaint: 35wk OB Call Center Professional Required: No Is patient in pain?: No [...] exploratory laparotomy Hx of colonoscopy with polypectomy [place] 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 -??? (more content not included)... Normal [facility] Laboratory - Chemistry and C hemistry - challengeOrdered By: Sherry Barone on 12-18-2024 Glucose Ql (U) Negative [facility] Laboratory - UrinalysisOrder ed By: Sherry Barone on 12-18-2024 Protein Ql (U) Negative [facility] Sub Assembly Team Worker Office Visit Reporton 12-18-2024 Sub Assembly Team Worker Office Visit Report [facility] [address], [address] [place] [address] OFFICE VISIT Date of Service: 12/18/24 MR#: [id number] Acct: [id number] Name: PATTIE BALDERAS MATEO Rep #: [id number] : 1995 Provider: OSCAR yun Age/Sex: 29/F [place] [facility] Status: Signed Intake Vital Signs 11/06/24 10:59 12/04/24 10:07 12/18/24 09:42 Height 5 ft 4 in 5 ft 4 in 5 ft 4 in Weight: 173 lb 5 oz BMI 29.7 BP 119/80 Intake Visit Reasons: 32 wk ob Chief Complaint: 32 Week OB Call Center Professional Required: No Is patient in pain?: No [...] exploratory laparotomy Hx of colonoscopy with polypectomy [place] 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 -???-???- (more content not included)... Normal [facility] Laboratory - Chemistry and C hemistry - challengeOrdered By: Elke Nuñez on 12-04-2024 Glucose Ql (U) Negative [facility] Laboratory - UrinalysisOrder ed By: Elke Nuñez on 12-04-2024 Protein Ql (U) Negative [facility] Sub Assembly Team Worker Office Visit Reporton 12-04-2024 Sub Assembly Team Worker Office Visit Report [facility] [address], [address] [place] [address] OFFICE VISIT Date of Service: 12/04/24 MR#: [id number] Acct: [id number] Name: PATTIE BALDERAS MATEO Rep #: [id number] : 1995 Provider: Dr. Elke Pike DO Age/Sex: 29/F Location[facility] Status: Signed Intake Vital Signs 11/06/24 10:59 11/20/24 08:47 12/04/24 10:06 12/04/24 10:07 Height 5 ft 4 in 5 ft 4 in 5 ft 4 in 5 ft 4 in Weight: 168 lb BMI 28.8 BP 107/73 Intake Visit Reasons: 30 wk ob Call Center Professional Required: No Is patient in pain?: No [...] exploratory laparotomy Hx of colonoscopy with polypectomy [place] 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 Normal [facility] TSH DL <= 0.005 mIU/L QnOrde red By: Elke Nuñez on 12-04-2024 TSH Qn 1.640 uIU/mL 0.300-4.200 [facility] Thyroid Stim Hormone (TSH)on 12-04-2024 TSH 1.640 uIU/mL Normal 0.300-4.200 [facility] Comment on above: Performed By: #### L 662.6289 ####[facility] [address] [place], [address] Gestational GTT 3HR 100gon 0 11-27-2024 GEST GTT 100gm Normal [facility] Comment on above: Order Comment: Y Result Comment: FAST ING 87 Col: 11/27/24 0659 GLUCOSE TOLERANCE TEST FOR Reference Interval GESTATIONAL DIABETES Fasting <105 mg/dL 1 hour <190 mg/dl 2 hour <165 mg/dl 3 hour <145 mg/dl 1 HR GLU 160 Col: 11/27/24 0842 2 HR GLU 111 Col: 11/27/24 0940 3 HR GLU 123 Col: 11/27/24 1042 Performed By: #### L 017.9229 #### [facility] [address] [place], [place], [id number] Quantitative serum or plasma 3 hour gestational glucose tolerance panelOrdered By: Jacki Jernigan on 11-27-2024 Glucose tolerance 3 hours gestational panel See comment [facility] Comment on above: FASTING 87 Col: 10/16 [...] Auto (Unsp spec) [#/Vol] 1.25 10*3/uL 0.83-4.51 [facility] Absolute neutrophil countOrd ered By: Jacki Jernigan on 11-20-2024 Neutrophils (Bld) [#/Vol] 6.7 10*3/uL 2.0-7.7 [facility] Automated lymphocyte count a s percentage of total leukocytesOrdered By: Jacki Jernigan on 11-20-2024 Lymphocytes/100 WBC Auto (Unsp spec) 14.2 % Low 19-41 [facility] Basophil percentageOrdered B y: Jacki Jernigan on 11-20-2024 Basophils/100 WBC (Bld) 0.3 % 0-1 [facility] CBC W/Diff, Automatedon 10-24 Absolute Lymph 1.25 X10 3/uL Normal 0.83-4.51 [facility] Comment on above: Performed By: #### L 3890.6006, L100.0100, BTS, L501.0250, L509.8002 #### [facility] [address] [place], [place], [id number] Absolute Neut 6.7 X10 3/uL Normal 2.0-7.7 [facility] Comment on above: Performed By: #### L 3890.6006, L100.0100, BTS, L501.0250, L509.8002 #### [facility] [address] [place], [address] Basophils/100 WBC (Bld) 0.3 % Normal 0-1 [facility] Comment on above: Performed By: #### L 3890.6006, L100.0100, BTS, L501.0250, L509.8002 #### [facility] [address] [place], [address] Eosinophils/100 WBC (Bld) 1.9 % Normal 0-5 [facility] Comment on above: Performed By: #### L 3890.6006, L100.0100, BTS, L501.0250, L509.8002 #### [facility] [address] [place], [address] Erythrocyte distribution width (RBC) [Ratio] 13.2 % Normal 11.6-14.6 [facility] Comment on above: Performed By: #### L 3890.6006, L100.0100, BTS, L501.0250, L509.8002 #### [facility] [address] [place], [address] Hematocrit (Bld) [Volume fraction] 33.6 % Low 37-47 [facility] Comment on above: Performed By: #### L 3890.6006, L100.0100, BTS, L501.0250, L509.8002 #### [facility] [address] [place], [address] Hemoglobin (Bld) [Mass/Vol] 11.3 g/dL Low 12.0-15.0 [facility] Comment on above: Performed By: #### L 3890.6006, L100.0100, BTS, L501.0250, L509.8002 #### [facility] [address] [place], [address] IG% 2.400 High 0.0-0.9 [facility] Comment on above: Result Comment: IG% - Immature Granulocytes (promyelocytes, myelocytes and metamyelocytes) > 1% indicates that a LEFT SHIFT is Present. Performed By: #### L 3890.6006, L100.0100, BTS, L501.0250, L509.8002 #### [facility] [address] [place], [address] Lymphocytes/100 WBC (Bld) 14.2 % Low 19-41 [facility] Comment on above: Performed By: #### L 3890.6006, L100.0100, BTS, L501.0250, L509.8002 #### [facility] [address] [place], [address] MCH (RBC) [Entitic mass] 30.2 pg Normal 27.0-32.0 [facility] Comment on above: Performed By: #### L 3890.6006, L100.0100, BTS, L501.0250, L509.8002 #### [facility] [address] [place], [address] MCHC (RBC) [Mass/Vol] 33.6 g/dL Normal 32-36 [facility] Comment on above: Performed By: #### L 3890.6006, L100.0100, BTS, L501.0250, L509.8002 #### [facility] [address] [place], [address] MCV (RBC) [Entitic vol] 89.8 fL Normal 81-99 [facility] Comment on above: Performed By: #### L 3890.6006, L100.0100, BTS, L501.0250, L509.8002 #### [facility] [address] [place], [address] Monocytes/100 WBC (Bld) 5.1 % Normal 0-10 [facility] Comment on above: Performed By: #### L 3890.6006, L100.0100, BTS, L501.0250, L509.8002 #### [facility] [address] [place], [address] Neutrophils/100 WBC (Bld) 76.1 % High 47-70 [facility] Comment on above: Performed By: #### L 3890.6006, L100.0100, BTS, L501.0250, L509.8002 #### [facility] [address] [place], [address] Nucleated RBC (Bld) [#/Vol] 0 10*3/uL Normal 0-5 [facility] Comment on above: Performed By: #### L 3890.6006, L100.0100, BTS, L501.0250, L509.8002 #### [facility] [address] [place], [address] Platelet mean volume (Bld) [Entitic vol] 12.3 fL High 6.2-12.0 [facility] Comment on above: Performed By: #### L 3890.6006, L100.0100, BTS, L501.0250, L509.8002 #### [facility] [address] [place], [address] Platelets (Bld) [#/Vol] 165 10*3/uL Normal 150-450 [facility] Comment on above: Performed By: #### L 3890.6006, L100.0100, BTS, L501.0250, L509.8002 #### [facility] [address] [place], [address] RBC (Bld) [#/Vol] 3.74 10*6/uL Low 4.2-5.4 [facility] Comment on above: Performed By: #### L 3890.6006, L100.0100, BTS, L501.0250, L509.8002 #### [facility] [address] [place], [address] RDW SD 43.2 fl Normal 35.1-43.9 [facility] Comment on above: Performed By: #### L 3890.6006, L100.0100, BTS, L501.0250, L509.8002 #### [facility] [address] [place], [address] WBC (Bld) [#/Vol] 8.8 10*3/uL Normal 4.4-11.0 [facility] Comment on above: Performed By: #### L 3890.6006, L100.0100, BTS, L501.0250, L509.8002 #### [facility] [address] [place], [address] Eosinophil percentageOrdered By: Jacki Jernigan on 11-20-2024 Eosinophils/100 WBC (Bld) 1.9 % 0-5 [facility] Erythrocyte distribution wid th ratioOrdered By: Jacki Jernigan on 11-20-2024 Erythrocyte distribution width (RBC) [Ratio] 13.2 % 11.6-14.6 [facility] Erythrocyte distribution wid th standard deviationOrdered By: Jacki Jernigan on 11-20-2024 Erythrocyte distribution width (RBC) [Ratio] 43.2 fl 35.1-43.9 [facility] Glucose Challenge Gest 1H 50 calvin 11-20-2024 GLU GEST 50g 1H 148 mg/dL High 70-140 [facility] Comment on above: Performed By: #### L 3890.6006, L100.0100, BTS, L501.0250, L509.8002 ####[facility] [address] [place], [address] Glucose measurement at 2 princess rs post-dose gestational glucose tolerance testOrdered By: Jacki Jernigan on 11-20-2024 Glucose [Mass/Vol] 148 mg/dL High 70-140 [facility] HIVon 11-20-2024 HIV Non-Reactive Normal Nonreactive [facility] Comment on above: Result Comment: Non- Reactive Reactive Repeatedly reactive samples must be confirmed according to CDC recommended confirmatory algorithms. The subresults for either HIVAG or AHIV can be used as an aid in the selection of the confirmation algorithm for reactive samples. Send out specimens with Reactive results to [facility] for confirmation. Order the HIV antibody detection and differentiation: [id number] Performed By: #### L 3890.6006, L100.0100, BTS, L501.0250, L509.8002 ####[facility] [address] [place], [place], [address] Hematocrit Auto (Bld) [Volum e fraction]Ordered By: Jacki Jernigan on 11-20-2024 Hematocrit (Bld) [Volume fraction] 33.6 % Low 37-47 [facility] Hemoglobin measurementOrdere d By: Jacki Jernigan on 11-20-2024 Hemoglobin (Bld) [Mass/Vol] 11.3 g/dL Low 12.0-15.0 [facility] Immature granulocytes/100 WB C Auto (Bld)Ordered By: Jacki Jernigan on 11-20-2024 Immature granulocytes/100 WBC (Bld) 2.400 % High 0.0-0.9 [facility] Comment on above: IG% - Immature Granu locytes (promyelocytes, myelocytes and metamyelocytes) > 1% indicates that a LEFT SHIFT is Present. Laboratory - Chemistry and C hemistry - challengeOrdered By: Sherry Barone on 11-20-2024 Glucose Ql (U) Negative [facility] Laboratory - UrinalysisOrder ed By: Sherry Barone on 11-20-2024 Protein Ql (U) Negative [facility] MCV (mean corpuscular volume ) determinationOrdered By: Jacki Jernigan on 11-20-2024 MCV (RBC) [Entitic vol] 89.8 fL 81-99 [facility] Mean corpuscular hemoglobin (MCH) determinationOrdered By: Jacki Jernigan on 11-20-2024 MCH (RBC) [Entitic mass] 30.2 pg 27.0-32.0 [facility] Mean corpuscular hemoglobin concentration (MCHC) determinationOrdered By: Jacki Sanchezbill on 11-20-2024 MCHC (RBC) [Mass/Vol] 33.6 g/dL 32-36 [facility] Mean platelet volume determi nationOrdered By: Jacki Danielbill on 11-20-2024 Platelet mean volume (Bld) [Entitic vol] 12.3 fL High 6.2-12.0 [facility] Monocyte percentageOrdered B y: Jacki Jernigan on 11-20-2024 Monocytes/100 WBC (Bld) 5.1 % 0-10 [facility] Neutrophil percentageOrdered By: Jacki Sanchezbill on 11-20-2024 Neutrophils/100 WBC (Bld) 76.1 % High 47-70 [facility] No Panel InformationOrdered By: Jacki Jernigan on 11-20-2024 HIV (1&2) Antibody Non-Reactive Nonreactive [facility] Comment on above: Non-ReactiveReactive Repeatedly reactive samples must be confirmed according to CDC recommended confirmatory algorithms. The subresults for either HIVAG or AHIV can be used as an aid in the selection of the confirmation algorithm for reactive samples.Send out specimens with Reactive results to [facility] for confirmation.Order the HIV antibody detection and differentiation: #[id number] Nucleated red blood cell per centageOrdered By: Jacki Ander on 11-20-2024 Nucleated RBC/100 WBC (Bld) [Ratio] 0 % 0-5 [facility] Sub Assembly Team Worker Office Visit Reporton 11-20-2024 Sub Assembly Team Worker Office Visit Report [facility] [address], [address] [place] [address] OFFICE VISIT Date of Service: 11/20/24 MR#: [id number] Acct: [id number] Name: PATTIE BALDERAS MATEO Rep #: [id number] : 1995 Provider: OSCAR yun Age/Sex: 29/F [place] [facility]: Signed Intake Vital Signs 09/03/24 09:28 11/06/24 10:59 11/20/24 08:47 Height 5 ft 4 in 5 ft 4 in 5 ft 4 in Weight: 165 lb 4 oz BMI 28.3 BP 110/70 Intake Visit Reasons: 28 WK OB/GLUCOSE Chief Complaint: 28 Week OB/Glucose Call Center Professional Required: No Is patient in pain?: No [...] exploratory laparotomy Hx of colonoscopy with polypectomy [place] 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 -???-???-? (more content not included)... Normal [facility] Platelet countOrdered By: Daryl Jernigan on 11-20-2024 Platelets (Bld) [#/Vol] 165 10*3/uL 150-450 [facility] RBC Auto (Bld) [#/Vol]Ordere d By: Jacki Jernigan on 11-20-2024 RBC (Bld) [#/Vol] 3.74 10*6/uL Low 4.2-5.4 [facility] Syphilis Antibodieson 2024 Syphilis Abs Non-Reactive Normal Nonreactive [facility] Comment on above: Performed By: #### L 3890.6006, L100.0100, BTS, L501.0250, L509.8002 ####[facility] [address] [place], [address] Type AND Screenon 11-20-2024 ABO and Rh group Nom (Bld) Blood group O Rh(D) negative Normal [facility] Comment on above: Order Comment: PN Performed By: #### L 3890.6006, L100.0100, BTS, L501.0250, L509.8002 ####[facility] [address] [place], [address] White blood cell (WBC) count Ordered By: Jacki Jernigan on 11-20-2024 WBC (Bld) [#/Vol] 8.8 10*3/uL 4.4-11.0 [facility] Laboratory - Chemistry and C hemistry - challengeOrdered By: Jacki Jernigan on 11-06-2024 Glucose Ql (U) Negative [facility] Laboratory - UrinalysisOrder ed By: Jacki Jernigan on 11-06-2024 Protein Ql (U) Negative [facility] Sub Assembly Team Worker Office Visit Reporton 11-06-2024 Sub Assembly Team Worker Office Visit Report [facility] [address], [address] [place] [address] OFFICE VISIT Date of Service: 11/06/24 MR#: [id number] Acct: [id number] Name: PATTIE BALDERAS Rep #: [id number] : 1995 Provider: Dr. 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 (more content not included)... Normal [facility] Progress Noteon 10-11-2024 [employer] Authentication Interface Message Text Heart Center - [...] in Cardiology at the Heart Center at [facility] on 10/11/2024 at the request of Dr. Jacki Jernigan. Ms. Balderas was referred due to a family history of congenital heart diease (Father - VSD; unrepaired, Paternal Unlce - VSD; repaired, Grandmother - VSD). Obstetric History: Ms. Balderas is 1 para 0 at 23 1/7 wga with estimated due date 02/06/2025. Number of fetuses: 1 - male Delivery Hospital, preferred: [facility] Past medical history: Past Medical History: Diagnosis Date Adopted Current medications: Medications Ordered Prior to Encounter[1] Allergies: Allergies[2] Family history: The family history was reviewed and is otherwise negative for congenital heart disease, sudden unexplained , arrhythmia. Social History: Pattie Balderas lives with her family in [place], [place]. OBJECTIVE: Echocardiogram (10/11/2024): Normal. See Epic [...] voice recognition systems. Elizabeth Urena DO (he/him/his) Packaging Tech [place] [address] Toll-Free: [email or web address] [[email or web address]] Current Outpatient Medications on File [...] Allergen Reactions Tea Tree Oil Hives Normal [facility] Laboratory - Chemistry and C hemistry - challengeOrdered By: Debra Montalvo on 09-30-2024 Glucose Ql (U) Negative [facility] Laboratory - UrinalysisOrder ed By: Debra Montalvo on 09-30-2024 Protein Ql (U) Negative [facility] Sub Assembly Team Worker Office Visit Reporton 09-30-2024 Sub Assembly Team Worker Office Visit Report [facility] [address], [address] [place] [address] OFFICE VISIT Date of Service: 09/30/24 MR#: [id number] Acct: [id number] Name: PATTIE BALDERAS MATEO Rep #: [id number] : 1995 Provider: LITO [facility] Age/Sex: 29/F [place] [facility] Status: Signed Intake Vital Signs 08/06/24 08:50 09/03/24 09:28 09/30/24 15:34 Height 5 ft 4 in 5 ft 4 in 5 ft 4 in Weight: 158 lb 2 oz BMI 27.1 BP 114/77 Intake Visit Reasons: 21wk ob Call Center Professional Required: No Is patient in pain?: No [...] exploratory laparotomy Hx of colonoscopy with polypectomy [place] 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 -??? (more content not included)... Normal [facility] Laboratory - Chemistry and C hemistry - challengeOrdered By: Jacki Jernigan on 09-03-2024 Glucose Ql (U) Negative [facility] Laboratory - UrinalysisOrder ed By: Jacki Jernigan on 09-03-2024 Protein Ql (U) Negative [facility] Sub Assembly Team Worker Office Visit Reporton 09-03-2024 Sub Assembly Team Worker Office Visit Report [facility] [address], [address] [place] [address] OFFICE VISIT Date of Service: 09/03/24 MR#: [id number] Acct: [id number] Name: PATTIE BALDERAS Rep #: [id number] : 1995 Provider: Dr. Jacki rosales MD Age/Sex: 29/F [place] [facility] [place]: Signed Intake Vital Signs 07/12/24 08:55 08/06/24 08:50 09/03/24 09:28 Height 5 ft 4 in 5 ft 4 in 5 ft 4 in Weight: 148 lb 2 oz 150 lb 2 oz BMI 25.4 25.7 BP 118/74 120/73 Intake Visit Reasons: 17wk ob Call Center Professional Required: No Is patient in pain?: No [...] exploratory laparotomy Hx of colonoscopy with polypectomy [place] 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 -???-???-??? (more content not included)... Normal [facility]isc[facility]on 08-10-2024 [facility] Comment on above: Order Comment: [id number] 0HCV GENOSURE Result Comment: TEST RESULTS LIMITS [...] information on interpreting this report, please call [employer] Customer Service at [phone] between the hours of 6:30am to 5:00pm Mize Time Monday through Monday. REMINDER: To Ensure High-Quality Results on All Samples - Verify Viral Load is Sufficient Before Ordering. - Draw 3.0 mL Plasma (PPT or EDTA Tube). - Spin Sample Immediately at 2342-1039 x g. - Don't Leave Samples in Centrifuge After Spinning. - Aliquot Plasma from EDTA Tubes (if used). - Freeze Sample Immediately at -20 degrees C. - Give Grain Cleaner And Transfer Operator Only Fully Frozen Samples. This assay is [...] developed and its performance characteristics determined by [employer]. It has not been cleared or approved by the Food and Drug Administration. [employer] is a subsidiary of [employer], using the brand [employer]. The results should not be used as the sole criteria for patient management. This document contains private and confidential health information protected by state and federal law. If you have received this document in error, please call [phone]. TESTING PERFORMED AT [employer]. ORIGINAL REPORT ON FILE IN LAB CONTAINS ADDITIONAL TEST SITE INFORMATION. Performed By: #### M 100.2200, L7000.1800, L3410.9998 ####[facility] [address] [place], [address] Laboratory - Chemistry and C hemistry - challengeOrdered By: Elke Nuñez on 08-06-2024 Glucose Ql (U) Negative [facility] Laboratory - UrinalysisOrder ed By: Elke Nuñez on 08-06-2024 Protein Ql (U) Negative [facility] Sub Assembly Team Worker Office Visit Reporton 08-06-2024 Sub Assembly Team Worker Office Visit Report [facility] [address], [address] [place] [address] OFFICE VISIT Date of Service: 08/06/24 MR#: [id number] Acct: [id number] Name: PATTIE BALDERAS MATEO Rep #: [id number] : 1995 Provider: Dr. Elke Pike DO Age/Sex: 29/F [place] [facility] [place]: Signed Intake Vital Signs 07/06/23 08:00 07/24/24 08:53 08/06/24 08:50 Height 5 ft 4 in 5 ft 4 in 5 ft 4 in Weight: 148 lb 2 oz BMI 25.4 BP 118/74 Intake Visit Reasons: 13wk ob Call Center Professional Required: No Is patient in pain?: No [...] exploratory laparotomy Hx of colonoscopy with polypectomy [place] 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 -???-? (more content not included)... Normal [facility] 12 Lead EKGon 07-29-2024 12 Lead EKG [facility] [address] [place] [address] 12 Lead EKG 07/29/24 0858 MR#: [id number] Acct: [id number] Name: PATTIE BALDERAS MATEO Rep #: [id number] : 1995 29 From: Dequan Alejandra MD Attending Dr: Dr. Jacki Jernigan MD Status: REG CLI Ordering Dr: Jacki Jernigan MD Date: 07/29/24 Location: [facility] Sex: F C Admitted: Test Reason : PALPITATIONS Blood Pressure : */* mmHG Vent. Rate : 90 BPM Atrial Rate : 90 BPM P-R Int : 114 ms QRS Dur : 90 ms QT Int : 370 ms P-R-T Axes : 65 65 22 degrees QTcB Int : 452 ms Normal sinus rhythm Normal ECG Confirmed by [place] CASTANEDA, DEQUAN ([id number]), order editor NAVIN SCOTT ([id number]) on 07/29/2024 2:01:12 PM Referred By: Jacki Jernigan Confirmed By: DEQUAN ALEJANDRA MD 07/29/24 140 Date Dequan Alejandra MD CC: WELT BEATER-C Eliud Peñaloza; Dr. Jacki Jernigan MD Signed [facility] Electrocardiogram reportOrde red By: Dequan Alejandra on 07-29-2024 EKG study [facility] [address] [place] [address] 12 Lead EKG 07/29/24 0858 MR#: [id number] Acct: [id number] Name: PATTIE BALDERAS MATEO Rep #:[id number] : 1995 29 From: Dequan Alejandra MD Attending Dr: Dr. Jacki Jernigan MD Status: REG CLI Ordering Dr: Jacki Jernigan MD Sanchez e: 07/29/24 Location: [facility] Sex: F C Admitted: Test Reason : PALPITATIONS Blood Pressure : */* mmHG Vent. Rate : 90 BPM Atrial Rate : 90 BPM P-R Int : 114 ms QRS Dur : 90 ms QT Int : 370 ms P-R-T Axes : 65 65 22 degrees QTcB Int : 452 ms Normal sinus rhythm Normal ECG Confirmed by DEQUAN ALEJANDRA MD ([id number]), order editor NAVIN SCOTT ([id number]) on 07/29/2024 2:01:12 PM Referred By: Jacki Jernigan Confirmed By: DEQUAN ALEJANDRA MD 07/29/24 1401 Date _ Dequan Alejandra MD CC: WELT BEATER-C Eliud Peñaloza; Dr. Jacki Jernigan MD ~ Signed [facility] Work Phone: Laboratory - Chemistry and C hemistry - challengeOrdered By: Jacki Jernigan on 07-24-2024 Glucose Ql (U) Negative [facility] Laboratory - UrinalysisOrder ed By: Jacki Jernigan on 07-24-2024 Protein Ql (U) Trace [facility] Sub Assembly Team Worker Office Visit Reporton 07-24-2024 Sub Assembly Team Worker Office Visit Report [facility] [address], [address] [place] [address] OFFICE VISIT Date of Service: 07/24/24 MR#: [id number] Acct: [id number] Name: PATTIE BALDERAS MATEO Rep #: [id number] : 1995 Provider: Dr. Jacki rosales MD Age/Sex: 29/F [place] [facility] Status: Signed Intake Vital Signs 07/12/24 08:55 07/24/24 08:53 Height 5 ft 4 in 5 ft 4 in Weight: 148 lb 4 oz BMI 25.4 BP 112/72 Pulse 92 Intake Visit Reasons: OB, palpitations Call Center Professional Required: No Is patient in pain?: No [...] exploratory laparotomy Hx of colonoscopy with polypectomy [place] 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 OB Visit RAHDA Calculator Estimated Delivery Date Method Current WG [...] -???-???-???-???-??? -???-???- (more content not included)... Normal [facility] L3410.9998on 07-16-2024 [facility] Misc. COMMENT Normal . [facility] Comment on above: Order Comment: [id number] 0TSH RECEPTOR AB SERUM FZ Performed By: #### L 509.4006, L3890.6301, L100.0100, L3890.6006, BTS, L3410.9998, L509.8002, L506.0400, L501.9520, L3890.6102 ####[facility] [address] [place], [address] Chlamydia/GC AMPARO aptimaon CHLAMY,NUC ACID Negative Normal Negative [facility] Comment on above: Performed By: #### M 100.2200, L7000.1800, L3410.9998 ####[facility] [address] [place], [address] GC BY NUC ACID Negative Normal Negative [facility] Comment on above: Result Comment: Perf ormed at: =G - [facility] [address] [id number] Print Production Coordinator: Rani Rebolleod MD, Phone: [phone] Performed By: #### M 100.2200, L7000.1800, L3410.9998 ####[facility] [address] [place], [address] Urine Cultureon 07-14-2024 [facility] Mixed Gram Positive Organisms [place] Count 11,000-25,000 MIXC Mixed contaminants. Submit a new specimen if indicated. Normal [facility] Comment on above: Performed By: #### M 100.2200, L7000.1800, L3410.9998 ####[facility] [address] [place], [address] Absolute lymphocyte countOrd ered By: Debra Elan on 07-12-2024 Lymphocytes Auto (Unsp spec) [#/Vol] 1.39 10*3/uL 0.83-4.51 [facility] Absolute neutrophil countOrd ered By: Debra Montalvo on 07-12-2024 Neutrophils (Bld) [#/Vol] 5.7 10*3/uL 2.0-7.7 [facility] Automated lymphocyte count a s percentage of total leukocytesOrdered By: Debra Montalvo on 07-12-2024 Lymphocytes/100 WBC Auto (Unsp spec) 17.6 % Low 19-41 [facility] Basophil percentageOrdered B y: Debra Elan on 07-12-2024 Basophils/100 WBC (Bld) 0.6 % 0-1 [facility] C. trachomatis rRNA AMPARO+prob e Ql (Unsp spec)Ordered By: Debra Montalvo on 07-12-2024 Chlamydia DNA (AMPARO) Negative Negative [facility] CBC W/Diff, Automatedon 03-2 Absolute Lymph 1.39 X10 3/uL Normal 0.83-4.51 [facility] Comment on above: Performed By: #### L 509.4006, L3890.6301, L100.0100, L3890.6006, BTS, L3410.9998, L509.8002, L506.0400, L501.9520, L3890.6102 ####[facility] [address] [place], [place], [address] Absolute Neut 5.7 X10 3/uL Normal 2.0-7.7 [facility] Comment on above: Performed By: #### L 509.4006, L3890.6301, L100.0100, L3890.6006, BTS, L3410.9998, L509.8002, L506.0400, L501.9520, L3890.6102 ####[facility] [address] [place], [address] Basophils/100 WBC (Bld) 0.6 % Normal 0-1 [facility] Comment on above: Performed By: #### L 509.4006, L3890.6301, L100.0100, L3890.6006, BTS, L3410.9998, L509.8002, L506.0400, L501.9520, L3890.6102 ####[facility] [address] [place], [address] Eosinophils/100 WBC (Bld) 2.0 % Normal 0-5 [facility] Comment on above: Performed By: #### L 509.4006, L3890.6301, L100.0100, L3890.6006, BTS, L3410.9998, L509.8002, L506.0400, L501.9520, L3890.6102 ####[facility] [address] [place], [place], [id number] Erythrocyte distribution width (RBC) [Ratio] 12.4 % Normal 11.6-14.6 [facility] Comment on above: Performed By: #### L 509.4006, L3890.6301, L100.0100, L3890.6006, BTS, L3410.9998, L509.8002, L506.0400, L501.9520, L3890.6102 ####[facility] [address] [place], [address] Hematocrit (Bld) [Volume fraction] 41.9 % Normal 37-47 [facility] Comment on above: Performed By: #### L 509.4006, L3890.6301, L100.0100, L3890.6006, BTS, L3410.9998, L509.8002, L506.0400, L501.9520, L3890.6102 ####[facility] [address] [place], [address] Hemoglobin (Bld) [Mass/Vol] 14.4 g/dL Normal 12.0-15.0 [facility] Comment on above: Performed By: #### L 509.4006, L3890.6301, L100.0100, L3890.6006, BTS, L3410.9998, L509.8002, L506.0400, L501.9520, L3890.6102 ####[facility] [address] [place], [address] IG% 0.400 Normal 0.0-0.9 [facility] Comment on above: Result Comment: IG% - Immature Granulocytes (promyelocytes, myelocytes and metamyelocytes) > 1% indicates that a LEFT SHIFT is Present. Performed By: #### L 509.4006, L3890.6301, L100.0100, L3890.6006, BTS, L3410.9998, L509.8002, L506.0400, L501.9520, L3890.6102 ####[facility] [address] [place], [address] Lymphocytes/100 WBC (Bld) 17.6 % Low 19-41 [facility] Comment on above: Performed By: #### L 509.4006, L3890.6301, L100.0100, L3890.6006, BTS, L3410.9998, L509.8002, L506.0400, L501.9520, L3890.6102 ####[facility] [address] [place], [address] MCH (RBC) [Entitic mass] 30.3 pg Normal 27.0-32.0 [facility] Comment on above: Performed By: #### L 509.4006, L3890.6301, L100.0100, L3890.6006, BTS, L3410.9998, L509.8002, L506.0400, L501.9520, L3890.6102 ####[facility] [address] [place], [address] MCHC (RBC) [Mass/Vol] 34.4 g/dL Normal 32-36 [facility] Comment on above: Performed By: #### L 509.4006, L3890.6301, L100.0100, L3890.6006, BTS, L3410.9998, L509.8002, L506.0400, L501.9520, L3890.6102 ####[facility] [address] [place], [address] MCV (RBC) [Entitic vol] 88.2 fL Normal 81-99 [facility] Comment on above: Performed By: #### L 509.4006, L3890.6301, L100.0100, L3890.6006, BTS, L3410.9998, L509.8002, L506.0400, L501.9520, L3890.6102 ####[facility] [address] [facility] [place], [address] Monocytes/100 WBC (Bld) 7.0 % Normal 0-10 [facility] Comment on above: Performed By: #### L 509.4006, L3890.6301, L100.0100, L3890.6006, BTS, L3410.9998, L509.8002, L506.0400, L501.9520, L3890.6102 ####[facility] [address] [place], [address] Neutrophils/100 WBC (Bld) 72.4 % High 47-70 [facility] Comment on above: Performed By: #### L 509.4006, L3890.6301, L100.0100, L3890.6006, BTS, L3410.9998, L509.8002, L506.0400, L501.9520, L3890.6102 ####[facility] [address] [place], [address] Nucleated RBC (Bld) [#/Vol] 0 10*3/uL Normal 0-5 [facility] Comment on above: Performed By: #### L 509.4006, L3890.6301, L100.0100, L3890.6006, BTS, L3410.9998, L509.8002, L506.0400, L501.9520, L3890.6102 ####[facility] [address] [place], [address] Platelet mean volume (Bld) [Entitic vol] 11.6 fL Normal 6.2-12.0 [facility] Comment on above: Performed By: #### L 509.4006, L3890.6301, L100.0100, L3890.6006, BTS, L3410.9998, L509.8002, L506.0400, L501.9520, L3890.6102 ####[facility] [address] [place], [address] Platelets (Bld) [#/Vol] 199 10*3/uL Normal 150-450 [facility] Comment on above: Performed By: #### L 509.4006, L3890.6301, L100.0100, L3890.6006, BTS, L3410.9998, L509.8002, L506.0400, L501.9520, L3890.6102 ####[facility] [address] [place], [address] RBC (Bld) [#/Vol] 4.75 10*6/uL Normal 4.2-5.4 [facility] Comment on above: Performed By: #### L 509.4006, L3890.6301, L100.0100, L3890.6006, BTS, L3410.9998, L509.8002, L506.0400, L501.9520, L3890.6102 ####[facility] [address] [place], [place], [phone]) RDW SD 40.5 fl Normal 35.1-43.9 [facility] Comment on above: Performed By: #### L 509.4006, L3890.6301, L100.0100, L3890.6006, BTS, L3410.9998, L509.8002, L506.0400, L501.9520, L3890.6102 ####[facility] [address] [place], [place], [phone] WBC (Bld) [#/Vol] 7.9 10*3/uL Normal 4.4-11.0 [facility] Comment on above: Performed By: #### L 509.4006, L3890.6301, L100.0100, L3890.6006, BTS, L3410.9998, L509.8002, L506.0400, L501.9520, L3890.6102 ####[facility] [address] [place], [place], [id number] Chlamydia trachomatis rRNA d etection by probe and target amplification methodOrdered By: Debra Montalvo on 07-12-2024 C. trachomatis rRNA AMPARO+probe Ql (Unsp spec) Negative Negative [facility] Eosinophil percentageOrdered By: Debra Montalvo on 07-12-2024 Eosinophils/100 WBC (Bld) 2.0 % 0-5 [facility] Erythrocyte distribution wid th ratioOrdered By: Debra oMntalvo on 07-12-2024 Erythrocyte distribution width (RBC) [Ratio] 12.4 % 11.6-14.6 [facility] Erythrocyte distribution wid th standard deviationOrdered By: Debra Montalvo on 07-12-2024 Erythrocyte distribution width (RBC) [Entitic vol] 40.5 fL 35.1-43.9 [facility] Erythrocyte distribution width (RBC) [Ratio] 40.5 fl 35.1-43.9 [facility] HBV surface Ag Ql (S)Ordered By: Debra Montalvo on 07-12-2024 Hepatitis B Surface Antigen Non-Reactive Nonreactive [facility] Comment on above: Reactive: Presumptiv e evidence of HBV. Repeatedly reactive samples must be confirmed using a neutralization test ([employer] HBsAg Confirmatory Test)Non-Reactive: HBsAg not detected; does not exclude the possibility of exposure to HBV Hematocrit Auto (Bld) [Volum e fraction]Ordered By: Debra Montalvo on 07-12-2024 Hematocrit (Bld) [Volume fraction] 41.9 % 37-47 [facility] Hemoglobin measurementOrdere d By: Debra Montalvo on 07-12-2024 Hemoglobin (Bld) [Mass/Vol] 14.4 g/dL 12.0-15.0 [facility] Hepatitis C antibodyOrdered By: Debra Montalvo on 07-12-2024 Hepatitis C Antibody Non-Reactive Nonreactive [facility] Comment on above: Reactive: Presumptiv e evidence of antibodies to HCV. Follow CDC recommendations for supplemental testing.Non-Reactive: Antibodies to HCV were not detected; does not exclude the possibility of exposure to HCVReactive Results are presumptive evidence of antibodies to HCV. Follow CDC recommendations for supplemental testing.Order confirmation testing: HCV Quant by PCR testing - HCVPCR lc#[id number] Non Reactive: < 0.8 Equivocal: >/= 0.8 to < 1.0 Reactive: >/= 1.0The CDC requires that a reactive/equivocal HCV antibody result be sent out for confirmation. HCV Quant by PCR testing. Immature granulocytes/100 WB C Auto (Bld)Ordered By: Debra Montalvo on 07-12-2024 Immature granulocytes/100 WBC (Bld) 0.400 % 0.0-0.9 [facility] Comment on above: IG% - Immature Granu locytes (promyelocytes, myelocytes and metamyelocytes) > 1% indicates that a LEFT SHIFT is Present. L3890.6006on 07-12-2024 HIV Non-Reactive Normal Nonreactive [facility] Comment on above: Result Comment: Non- Reactive Reactive Repeatedly reactive samples must be confirmed according to CDC recommended confirmatory algorithms. The subresults for either HIVAG or AHIV can be used as an aid in the selection of the confirmation algorithm for reactive samples. Send out specimens with Reactive results to [facility] for confirmation. Order the HIV antibody detection and differentiation: lc#[id number] Performed By: #### L 509.4006, L3890.6301, L100.0100, L3890.6006, BTS, L3410.9998, L509.8002, L506.0400, L501.9520, L3890.6102 ####[facility] [address] [facility] [place], [place], [address] L3890.6102on 07-12-2024 HEP B Surf Ag Non-Reactive Normal Nonreactive [facility] Comment on above: Result Comment: Reac tive: Presumptive evidence of HBV. Repeatedly reactive samples must be confirmed using a neutralization test ([employer] HBsAg Confirmatory Test) Non-Reactive: HBsAg not detected; does not exclude the possibility of exposure to HBV Performed By: #### L 509.4006, L3890.6301, L100.0100, L3890.6006, BTS, L3410.9998, L509.8002, L506.0400, L501.9520, L3890.6102 ####[facility] [address] [facility] [place], [place], [address] L3890.6301on 07-12-2024 Hepatitis C Ab Non-Reactive Normal Nonreactive [facility] Comment on above: Result Comment: Reac tive: Presumptive evidence of antibodies to HCV. Follow CDC recommendations for supplemental testing. Non-Reactive: Antibodies to HCV were not detected; does not exclude the possibility of exposure to HCV Reactive Results are presumptive evidence of antibodies to HCV. Follow CDC recommendations for supplemental testing. Order confirmation testing: HCV Quant by PCR testing - HCVPCR #[id number] Non Reactive: < 0.8 Equivocal: >/= 0.8 to < 1.0 Reactive: >/= 1.0 The CDC requires that a reactive/equivocal HCV antibody result be sent out for confirmation. HCV Quant by PCR testing. Performed By: #### L 509.4006, L3890.6301, L100.0100, L3890.6006, BTS, L3410.9998, L509.8002, L506.0400, L501.9520, L3890.6102 ####[facility] [address] [place], [address] L509.4006on 07-12-2024 Rubella IgG REAC Normal Nonreactive [facility] Comment on above: Result Comment: Anti body Result: Interpretation Non-Reactive: Non-Immune Reactive: Immune The following results were obtained with the [employer] Rubella IgG assay. Results from assays of other manufacturers cannot be used interchangeably. Performed By: #### L 509.4006, L3890.6301, L100.0100, L3890.6006, BTS, L3410.9998, L509.8002, L506.0400, L501.9520, L3890.6102 ####[facility] [address] [facility] [place], [address] L509.8002on 07-12-2024 Syphilis Abs Non-Reactive Normal Nonreactive [facility] Comment on above: Performed By: #### L 509.4006, L3890.6301, L100.0100, L3890.6006, BTS, L3410.9998, L509.8002, L506.0400, L501.9520, L3890.6102 ####[facility] [address] [facility] [place], [place], [phone] Laboratory - Microbiology an d Antimicrobial susceptibilityOrdered By: Debra Montalvo on 07-12-2024 HBV surface Ag Ql (S) Non-Reactive Nonreactive [facility] Comment on above: Reactive: Presumptiv e evidence of HBV. Repeatedly reactive samples must be confirmed using a neutralization test ([employer] HBsAg Confirmatory Test)Non-Reactive: HBsAg not detected; does not exclude the possibility of exposure to HBV Lymphocytes Auto (Unsp spec) [#/Vol]Ordered By: Debra Montalvo on 07-12-2024 Lymphocytes (Bld) [#/Vol] 1.39 10*3/uL 0.83-4.51 [facility] Lymphocytes/100 WBC Auto (Un sp spec)Ordered By: Debra Montalvo on 07-12-2024 Lymphocytes/100 WBC (Bld) 17.6 % Low 19-41 [facility] MCV (mean corpuscular volume ) determinationOrdered By: Debra Montalvo on 07-12-2024 MCV (RBC) [Entitic vol] 88.2 fL 81-99 [facility] Mean corpuscular hemoglobin (MCH) determinationOrdered By: Debra Montalvo on 07-12-2024 MCH (RBC) [Entitic mass] 30.3 pg 27.0-32.0 [facility] Mean corpuscular hemoglobin concentration (MCHC) determinationOrdered By: Debar Montalvo on 07-12-2024 MCHC (RBC) [Mass/Vol] 34.4 g/dL 32-36 [facility] Mean platelet volume determi nationOrdered By: Debra Montalvo on 07-12-2024 Platelet mean volume (Bld) [Entitic vol] 11.6 fL 6.2-12.0 [facility] Monocyte percentageOrdered B y: Debra Montalvo on 07-12-2024 Monocytes/100 WBC (Bld) 7.0 % 0-10 [facility] Neisseria gonorrhoeae nuclei c acid detection by amplified probe techniqueOrdered By: Debra Montalvo on 07-12-2024 N. gonorrhoeae DNA AMPARO+probe Ql (Unsp spec) Negative Negative [facility] Comment on above: Performed at: =[address] [id number] Director: Rani Rebolledo MD, Phone: [phone] Neutrophil percentageOrdered By: Debra Montalvo on 07-12-2024 Neutrophils/100 WBC (Bld) 72.4 % High 47-70 [facility] No Panel InformationOrdered By: Debra Montalvo on 07-12-2024 HIV (1&2) Antibody Non-Reactive Nonreactive [facility] Comment on above: Non-ReactiveReactive Repeatedly reactive samples must be confirmed according to CDC recommended confirmatory algorithms. 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 Office Visit Reporton 07-12-2024 Sub Assembly Team Worker Office Visit Report [facility] [address], [address] [place] [address] OFFICE VISIT Date of Service: 07/12/24 MR#: [id number] Acct: [id number] Name: PATTIE BALDERAS Rep #: [id number] : 1995 Provider: LITO Costa ams Age/Sex: 29/F [place] [facility] [place]: Signed Intake Vital Signs 07/06/23 08:00 07/12/24 08:55 Height 5 ft 4 in 5 ft 4 in Weight: 148 lb 8 oz BMI 25.4 BP 112/72 Intake Visit Reasons: New OB, LMP 05/02, RADHA 02/06 Chief Complaint: NOB LMP 05/02 Call Center Professional Required: No Is patient in pain?: No [...] exploratory laparotomy Hx of colonoscopy with polypectomy [place] 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 -???-???- (more content not included)... Normal [facility] Platelet countOrdered By: Galen Montalvo on 07-12-2024 Platelets (Bld) [#/Vol] 199 10*3/uL 150-450 [facility] RBC Auto (Bld) [#/Vol]Ordere d By: Debra Montalvo on 07-12-2024 RBC (Bld) [#/Vol] 4.75 10*6/uL 4.2-5.4 [facility] Rubella immune status determ ination by IgG antibody assayOrdered By: Debra Montalvo on 07-12-2024 Rubella IgG Antibody REAC Nonreactive [facility] Comment on above: Antibody Result: Int erpretationNon-Reactive: Non-ImmuneReactive: ImmuneThe following results were obtained with the [employer] Rubella IgG assay. Results from assays of other manufacturers cannot be used interchangeably. Kumar pallidum abOrdered By: Galen Montalvo on 07-12-2024 Syphilis Total Antibody Non-Reactive Nonreactiv e [facility] T4 Free Directon 07-12-2024 T4 FREE DIRECT 1.00 ng/dL Normal 0.76-1.46 [facility] Comment on above: Performed By: #### L 509.4006, L3890.6301, L100.0100, L3890.6006, BTS, L3410.9998, L509.8002, L506.0400, L501.9520, L3890.6102 ####[facility] [address] [place], [address] T4 freeOrdered By: Debra ray on 07-12-2024 Free T4 [Mass/Vol] 1.00 ng/dL 0.76-1.46 [facility] TSH DL <= 0.005 mIU/L QnOrde red By: Debra Montalvo on 07-12-2024 Thyroid Stimulating Hormone (TSH) 2.890 uIU/mL 0.300-4.200 [facility] TSH Qn 2.890 uIU/mL 0.300-4.200 [facility] Thyroid Stim Hormone (TSH)on 07-12-2024 TSH 2.890 uIU/mL Normal 0.300-4.200 [facility] Comment on above: Performed By: #### L 509.4006, L3890.6301, L100.0100, L3890.6006, BTS, L3410.9998, L509.8002, L506.0400, L501.9520, L3890.6102 ####[facility] [address] [place], [address] Type AND Screenon 07-12-2024 ABO and Rh group Nom (Bld) Blood group O Rh(D) negative Normal [facility] Comment on above: Order Comment: PN Performed By: #### L 509.4006, L3890.6301, L100.0100, L3890.6006, BTS, L3410.9998, L509.8002, L506.0400, L501.9520, L3890.6102 ####[facility] [address] [place], [address] Urine cultureOrdered By: Toney Montalvo on 07-12-2024 Bacteria identified Cx Nom (U) Positive Abnormal [facility] White blood cell (WBC) count Ordered By: Debra Montalvo on 07-12-2024 WBC (Bld) [#/Vol] 7.9 10*3/uL 4.4-11.0 [facility] CNOVon 05-30-2024 CNOV Office Visit (FAMPWS) PATTIE BALDERAS ([id number]) 1995 F Date Time Provider Department 05/30/24 2:20 PM ELIUD PEÑALOZA During your visit today, we recorded the following information about you: Pulse Blood pressure Weight 99/minute 117/73 67.6 kg Eliud Peñaloza APRN.HEAD ATHLETIC TRAINER/STRENGTH COACH 05/30/2024 3:29 PM Signed Chief Complaint Patient [...] Abs Lymph 1.00 - 4.00 k/uL 2.00 [place]% % 6.7 Abs [place] <0.87 k/uL 0.53 Eosin% % 3.7 Abs [...] Total Choleste (more content not included)... Normal [facility] CBC W Auto Differential pane l (Bld)on 05-28-2024 Basophils (Bld) [#/Vol] 0.05 10*3/uL Normal <0.11 [facility] Comment on above: Order Comment: Speci men Type: BLOOD SPECIMENOrdering Facility: [facility] Address: [address] [place] [address] Performed By: #### 5 7021-8 ####[facility] LABCLIA [id number] [place] [address] [place] Basophils/100 WBC (Bld) 0.6 % Normal C [facility] Comment on above: Order Comment: Speci men Type: BLOOD SPECIMENOrdering Facility: [facility] Address: [address] [place] [address] Performed By: #### 5 7021-8 ####[facility] LABCLIA [id number] [place] [address] [place] Differential cell count method Nom (Bld) Auto Normal [facility] Comment on above: Order Comment: Speci men Type: BLOOD SPECIMENOrdering Facility: [facility] Address: [address] [place] [address] Performed By: #### 5 7021-8 ####[facility] LABCLIA [id number] [place] [address] [place] Eosinophils (Bld) [#/Vol] 0.29 10*3/uL Normal <0.46 [facility] Comment on above: Order Comment: Speci men Type: BLOOD SPECIMENOrdering Facility: [facility] Address: [address] [place] [address] Performed By: #### 5 7021-8 ####[facility] LABCLIA [id number] [place] [address] [place] Eosinophils/100 WBC (Bld) 3.7 % Normal [facility] Comment on above: Order Comment: Speci men Type: BLOOD SPECIMENOrdering Facility: [facility] Address: [address] [place] [address] Performed By: #### 5 7021-8 ####[facility] LABCLIA [id number] [place] [address] [place] Erythrocyte distribution width (RBC) [Ratio] 12.6 % Normal 11.5-15.0 [facility] Comment on above: Order Comment: Speci men Type: BLOOD SPECIMENOrdering Facility: [facility] Address: [address] [place] [address] Performed By: #### 5 7021-8 ####[facility] LABCLIA [id number] [place] [address] [place] Hematocrit (Bld) [Volume fraction] 42.5 % Normal 36.0-46.0 [facility] Comment on above: Order Comment: Speci men Type: BLOOD SPECIMENOrdering Facility: [facility] Address: [address] [place] [address] Performed By: #### 5 7021-8 ####[facility] LABCLIA [id number] [place] [address] [place] Hemoglobin (Bld) [Mass/Vol] 14.2 g/dL Normal 11.5-15.5 [facility] Comment on above: Order Comment: Speci men Type: BLOOD SPECIMENOrdering Facility: [facility] Address: [address] [place] [address] Performed By: #### 5 7021-8 ####[facility] LABCLIA [id number] [place] [address] [place] Immature granulocytes (Bld) [#/Vol] 0.05 10*3/uL Normal <0.10 [facility] Comment on above: Order Comment: Speci men Type: BLOOD SPECIMENOrdering Facility: [facility] Address: [address] [place] [address] Performed By: #### 5 7021-8 ####[facility] LABCLIA [id number] [place] [address] [place] Immature granulocytes/100 WBC (Bld) 0.6 % Normal [facility] Comment on above: Order Comment: Speci men Type: BLOOD SPECIMENOrdering Facility: [facility] Address: [address] [place] [address] Performed By: #### 5 7021-8 ####[facility] LABCLIA [id number] [place] [address] [place] Lymphocytes (Bld) [#/Vol] 2.00 10*3/uL Normal 1.00-4.00 [facility] Comment on above: Order Comment: Speci men Type: BLOOD SPECIMENOrdering Facility: [facility] Address: [address] [place] [address] Performed By: #### 5 7021-8 ####[facility] LABCLIA [id number] [place] [address] [place] Lymphocytes/100 WBC (Bld) 25.4 % Normal [facility] Comment on above: Order Comment: Speci men Type: BLOOD SPECIMENOrdering Facility: [facility] Address: [address] [place] [address] Performed By: #### 5 7021-8 ####[facility] LABCLIA [id number] [place] [address] [place] MCH (RBC) [Entitic mass] 30.3 pg Normal 26.0-34.0 [facility] Comment on above: Order Comment: Speci men Type: BLOOD SPECIMENOrdering Facility: [facility] Address: [address] [place] [address] Performed By: #### 5 7021-8 ####[facility] LABCLIA [id number] [place] [address] [place] MCHC (RBC) [Mass/Vol] 33.4 g/dL Normal 30.5-36.0 [facility] Comment on above: Order Comment: Speci men Type: BLOOD SPECIMENOrdering Facility: [facility] Address: [address] [place] [address] Performed By: #### 5 7021-8 ####[facility] LABCLIA [id number] [place] [address] [place] MCV (RBC) [Entitic vol] 90.8 fL Normal 80.0-100.0 [facility] Comment on above: Order Comment: Speci men Type: BLOOD SPECIMENOrdering Facility: [facility] Address: [address] [place] [address] Performed By: #### 5 7021-8 ####[facility] LABCLIA [id number] [place] [address] [place] Monocytes (Bld) [#/Vol] 0.53 10*3/uL Normal <0.87 [facility] Comment on above: Order Comment: Speci men Type: BLOOD SPECIMENOrdering Facility: [facility] Address: [address] [place] [address] Performed By: #### 5 7021-8 ####[facility] LABCLIA [id number] [place] [address] [place] Monocytes/100 WBC (Bld) 6.7 % Normal [facility] Comment on above: Order Comment: Speci men Type: BLOOD SPECIMENOrdering Facility: [facility] Address: [address] [place] [address] Performed By: #### 5 7021-8 ####[facility] LABCLIA [id number] [place] [address] [place] Neutrophils (Bld) [#/Vol] 4.94 10*3/uL Normal 1.45-7.50 [facility] Comment on above: Order Comment: Speci men Type: BLOOD SPECIMENOrdering Facility: [facility] Address: [address] [place] [address] Performed By: #### 5 7021-8 ####[facility] LABCLIA [id number] [place] [address] [place] Neutrophils/100 WBC (Bld) 63.0 % Normal [facility] Comment on above: Order Comment: Speci men Type: BLOOD SPECIMENOrdering Facility: [facility] Address: [address] [place] [address] Performed By: #### 5 7021-8 ####[facility] LABCLIA [id number] [place] [address] [place] Nucleated RBC (Bld) [#/Vol] 10*3/uL Normal <0.01 [facility] Comment on above: Order Comment: Speci men Type: BLOOD SPECIMENOrdering Facility: [facility] Address: [address] [place] [address] Performed By: #### 5 7021-8 ####[facility] LABCLIA [id number] [place] [address] [place] Nucleated RBC/100 WBC (Bld) [Ratio] 0.0 /[address] [facility] Comment on above: Order Comment: Speci men Type: BLOOD SPECIMENOrdering Facility: [facility] Address: [address] [place] [address] Performed By: #### 5 7021-8 ####[facility] LABCLIA [id number] [place] [address] [place] Platelet mean volume (Bld) [Entitic vol] 11.4 fL Normal 9.0-12.7 [facility] Comment on above: Order Comment: Speci men Type: BLOOD SPECIMENOrdering Facility: [facility] Address: [address] [place] [address] Performed By: #### 5 7021-8 ####[facility] LABCLIA [id number] [place] [address] [place] Platelets (Bld) [#/Vol] 192 10*3/uL Normal 150-400 [facility] Comment on above: Order Comment: Speci men Type: BLOOD SPECIMENOrdering Facility: [facility] Address: [address] [place] [address] Performed By: #### 5 7021-8 ####[facility] LABIA [id number] [place] [address] [place] RBC (Bld) [#/Vol] 4.68 10*6/uL Normal 3.90-5.20 [facility] Comment on above: Order Comment: Speci men Type: BLOOD SPECIMENOrdering Facility: [facility] Address: [address] [place] [address] Performed By: #### 5 7021-8 ####[facility] LABIA [id number] [place] [address] [place] WBC (Bld) [#/Vol] 7.86 10*3/uL Normal 3.70-11.00 [facility] Comment on above: Order Comment: Speci men Type: BLOOD SPECIMENOrdering Facility: [facility] Address: [address] [place] [address] Performed By: #### 5 7021-8 ####[facility] LABIA [id number] [place] [address] [place] Comprehensive metabolic 2000 panelon 05-28-2024 Albumin [Mass/Vol] 4.5 g/dL Normal 3.9-4.9 [facility] Comment on above: Order Comment: Speci men Type: BLOOD SPECIMENOrdering Facility: [facility] Address: [address] [place] [address] Performed By: #### 2 4323-8, LIPNF, 73735-8, 3053-6 ####[facility] LABCLIA [id number] [place] [address] [place] ALP [Catalytic activity/Vol] 57 U/L Normal 34-123 [facility] Comment on above: Order Comment: Speci men Type: BLOOD SPECIMENOrdering Facility: [facility] Address: [address] [place] [address] Performed By: #### 2 4323-8, LIPNF, 38545-6, 3053-6 ####[facility] LABCLIA [id number] [place] [address] [place] ALT [Catalytic activity/Vol] 16 U/L Normal 7-38 [facility] Comment on above: Order Comment: Speci men Type: BLOOD SPECIMENOrdering Facility: [facility] Address: [address] [place] [address] Performed By: #### 2 4323-8, LIPNF, 08270-1, 3053-6 ####[facility] LABCLIA [id number] [place] [address] [place] Anion gap [Moles/Vol] 11 mmol/L Normal 8-15 [facility] Comment on above: Order Comment: Speci men Type: BLOOD SPECIMENOrdering Facility: [facility] Address: [address] [place] [address] Performed By: #### 2 4323-8, LIPNF, 38792-9, 3053-6 ####[facility] LABCLIA [id number] [place] [address] [place] AST [Catalytic activity/Vol] 20 U/L Normal 13-35 [facility] Comment on above: Order Comment: Speci men Type: BLOOD SPECIMENOrdering Facility: [facility] Address: [address] [place] [address] Performed By: #### 2 4323-8, LIPNF, 82299-5, 3053-6 ####[facility] LABCLIA [id number] [place] [address] [place] Bilirubin [Mass/Vol] 0.3 mg/dL Normal 0.2-1.3 [facility] Comment on above: Order Comment: Speci men Type: BLOOD SPECIMENOrdering Facility: [facility] Address: [address] [place] [address] Performed By: #### 2 4323-8, LIPNF, 59283-1, 3053-6 ####[facility] LABCLIA [id number] [place] [address] [place] Calcium [Mass/Vol] 9.6 mg/dL Normal 8.5-10.2 [facility] Comment on above: Order Comment: Speci men Type: BLOOD SPECIMENOrdering Facility: [facility] Address: [address] [place] [address] Performed By: #### 2 4323-8, LIPNF, 48481-1, 305-6 ####[facility] LABCLIA [id number] [place] [address] [place] Chloride [Moles/Vol] 103 mmol/L Normal 98-107 [facility] Comment on above: Order Comment: Speci men Type: BLOOD SPECIMENOrdering Facility: [facility] Address: [address] [place] [address] Performed By: #### 2 4323-8, LIPNF, 71813-6, 305-6 ####[facility] LABCLIA [id number] [place] [address] [place] CO2 [Moles/Vol] 24 mmol/L Normal 22-30 [facility] Comment on above: Order Comment: Speci men Type: BLOOD SPECIMENOrdering Facility: [facility] Address: [address] [place] [address] Performed By: #### 2 4323-8, LIPNF, 50542-2, 3053-6 ####[facility] LABCLIA [id number] [place] [id number] [place] Creatinine [Mass/Vol] 0.75 mg/dL Normal 0.58-0.96 [facility] Comment on above: Order Comment: Dixon martinez Type: BLOOD SPECIMENOrdering Facility: [facility] Address: [address] [place] [address] Performed By: #### 2 4323-8, LIPAMRK, 85708-1, 3053-6 ####[facility] LABCLIA [id number] [place] [address] [place] Creatinine and Glomerular filtration rate.predicted panel (S/P/Bld) 111 mL/min/1.73m??? Normal >=60 [facility] Comment on above: Order Comment: Dixon martinez Type: BLOOD SPECIMENOrdering Facility: [facility] Address: [address] [place] [address] Result Comment: Karo mated Glomerular Filtration Rate [...] GFR. Performed By: #### 2 4323-8, JENY, 81937-7, 3053-6 ####[facility] LABCLIA [id number] [place] [address] [place] Glucose [Mass/Vol] 82 mg/dL Normal 74-99 [facility] Comment on above: Order Comment: Dixon martinez Type: BLOOD SPECIMENOrdering Facility: [facility] Address: [address] [place] [address] Result Comment: The [place] Diabetes Association (ADA) provides guidance for cutoff [...] Standards of Medical Care in Diabetes 2016, [place] Diabetes Association. Diabetes Care. 2016.39(Suppl 1). Performed By: #### 2 4323-8, LIPNF, 62036-3, 305-6 ####[facility] LABCLIA [id number] [address] [address] [place] Potassium [Moles/Vol] 3.9 mmol/L Normal 3.7-5.1 [facility] Comment on above: Order Comment: Speci men Type: BLOOD SPECIMENOrdering Facility: [facility] Address: [address] [place] [address] Performed By: #### 2 4323-8, LIPNF, 76331-1, 3052-6 ####[facility] LABCLIA [id number] [place] [id number] [place] Protein [Mass/Vol] 7.0 g/dL Normal 6.3-8.0 [facility] Comment on above: Order Comment: Speci men Type: BLOOD SPECIMENOrdering Facility: [facility] Address: [address] [place] [address] Performed By: #### 2 4323-8, LIPNF, 21335-8, 3052-6 ####[facility] LABCLIA [id number] [place] [id number] [place] Sodium [Moles/Vol] 138 mmol/L Normal 136-144 [facility] Comment on above: Order Comment: Speci men Type: BLOOD SPECIMENOrdering Facility: [facility] Address: [address] [place] [address] Performed By: #### 2 4323-8, LIPNF, 63108-5, 305-6 ####[facility] LABCLIA [id number] [address] [address] [place] Urea nitrogen [Mass/Vol] 13 mg/dL Normal 7-21 [facility] Comment on above: Order Comment: Dixon men Type: BLOOD SPECIMENOrdering Facility: [facility] Address: [address] [place] [address] Performed By: #### 2 4323-8, LIPNF, 25715-8, 3053-6 ####[facility] LABCLIA [id number] [place] [address] [place] Ferritin SerPl-mCncon 2024 Ferritin [Mass/Vol] 45.4 ng/mL Normal 14.7-205.1 [facility] Comment on above: Order Comment: Dixon men Type: BLOOD SPECIMENOrdering Facility: [facility] Address: [address] [place] [address] Performed By: #### 3 024-7, 3016-3, 2276-4 ####[facility] LABCLIA [id number] [place] [address] [place] HbA1c (Bld)on 05-28-2024 Average glucose Estimated from glycated hemoglobin (Bld) [Mass/Vol] 80 mg/dL Normal [facility] Comment on above: Order Comment: Dixon martinez Type: BLOOD SPECIMENOrdering Facility: [facility] Address: [address] [place] [address] Result Comment: eAG: (Estimated average glucose) is a calculated value from HgbA1c and is guest relations representative of the average blood glucose level in the last 2-3 month period. Performed By: #### 5 5454-3 ####[facility] LABIA [id number] [place] [address] [place] HbA1c (Bld) [Mass fraction] 4.4 % Normal 4.3-5.6 [facility] Comment on above: Order Comment: Dixon juan Type: BLOOD SPECIMENOrdering Facility: [facility] Address: [address] [place] [address] Result Comment: Amer ican Diabetes Association guidelines indicate that patients with HgbA1c in the range 5.7-6.4% are at increased risk for development of diabetes, and intervention by lifestyle modification may be beneficial. HgbA1c greater or equal to 6.5% is considered diagnostic of diabetes. Performed By: #### 5 5454-3 ####[facility] LABCLIA [id number] [place] [address] [place] Iron and Iron binding capaci ty panelon 05-28-2024 Iron [Mass/Vol] 72 ug/dL Normal 41-186 [facility] Comment on above: Order Comment: Speci men Type: BLOOD SPECIMENOrdering Facility: [facility] Address: [address] [place] [address] Performed By: #### 2 4323-8, LIPNF, 30616-0, 3053-6 ####[facility] LABIA [id number] [address] [place] Iron binding capacity [Mass/Vol] 371 ug/dL Normal 232-386 [facility] Comment on above: Order Comment: Speci men Type: BLOOD SPECIMENOrdering Facility: [facility] Address: [address] [place] [address] Performed By: #### 2 4323-8, LIPNF, 66551-1, 3053-6 ####[facility] LABIA [id number] [place] [address] [place] Iron/TIBC [Molar ratio] 19.4 % Normal 15.0-57.0 [facility] Comment on above: Order Comment: Speci men Type: BLOOD SPECIMENOrdering Facility: [facility] Address: [address] [place] [address] Performed By: #### 2 4323-8, LIPNF, 84150-5, 3053-6 ####[facility] LABIA [id number] [place] [id number] [place] LIPID PANEL, NONFASTINGon Cholesterol [Mass/Vol] 161 mg/dL Normal <200 [facility] Comment on above: Order Comment: Speci men Type: BLOOD SPECIMENOrdering Facility: [facility] Address: [address] [place] [address] Result Comment: <200 mg/dL, Desirable 200-239 mg/dL, Borderline high >239 mg/dL, High Performed By: #### 2 4323-8, LIPNF, 78921-6, 3053-6 ####[facility] LABCLIA [id number] [place] [address] [place] HDL CHOLESTEROL, NF 47 mg/dL Normal >39 [facility] Comment on above: Order Comment: Speci men Type: BLOOD SPECIMENOrdering Facility: [facility] Address: [address] [place] [address] Result Comment: 40-5 9 mg/dL, Acceptable >59 mg/dL, High: Negative risk factor for coronary heart disease <40 mg/dL, Low: Positive risk factor for coronary heart disease Performed By: #### 2 4323-8, LIPNF, 17822-6, 3053-6 ####[facility] LABCLIA [id number] [address] [place] LDL CHOLESTEROL, NF 80 mg/dL Normal <100 [facility] Comment on above: Order Comment: Blanei men Type: BLOOD SPECIMENOrdering Facility: [facility] Address: [address] [place] [address] Result Comment: <100 mg/dL, Optimal 100-129 mg/dL, Near optimal/above optimal 130-159 mg/dL, Borderline high 160-189 mg/dL, High >189 mg/dL, Very high Secondary prevention optimal LDL Cholesterol levels are recommended to be < 70 mg/dL Performed By: #### 2 4323-8, LIPNF, 59544-6, 3053-6 ####[facility] LABCLIA [id number] [address] [place] LDL/HDL RATIO, NF 1.70 mg/dL Normal <2.54 [facility] Comment on above: Order Comment: Speci men Type: BLOOD SPECIMENOrdering Facility: [facility] Address: [address] [place] [address] Result Comment: Pablo toribio: 1. National Cholesterol Education Program ATP III Guideline At-A-Glance Quick Desk Reference: National Heart, Lung, and Blood [place]. National Institutes of Health. 2001: NIH Publication No. 01-3305. 2. An International Atherosclerosis Society position paper: global recommendations for the management of dyslipidemia: executive summary, Atherosclerosis. 2014: 232(2):410-413. Performed By: #### 2 4323-8, LIPNF, 03422-8, 3053-6 ####[facility] LABCLIA [id number] [place] [address] [place] NON HDL CHOL, NF 114 mg/dL Normal <130 [facility] Comment on above: Order Comment: Speci men Type: BLOOD SPECIMENOrdering Facility: [facility] Address: [address] [place] [address] Result Comment: <130 mg/dL, Optimal 130-159 mg/dL, Near optimal/above optimal 160-189 mg/dL, Borderline high 190-219 mg/dL, High >219 mg/dL, Very high Secondary prevention optimal non HDL Cholesterol levels are recommended to be <100 mg/dL Performed By: #### 2 4323-8, LIPNF, 41079-5, 3053-6 ####[facility] LABCLIA [id number] [place] [address] [place] T CHOL/HDL RATIO NF 3.43 mg/dL Normal <5.10 [facility] Comment on above: Order Comment: Speci men Type: BLOOD SPECIMENOrdering Facility: [facility] Address: [address] [place] [address] Performed By: #### 2 4323-8, LIPNF, 43393-5, 3053-6 ####[facility] LABCLIA [id number] [place] [address] [place] TRIGLYCERIDES, NF 169 mg/dL High <150 [facility] Comment on above: Order Comment: Speci men Type: BLOOD SPECIMENOrdering Facility: [facility] Address: [address] [place] [address] Result Comment: <150 mg/dL, Normal 150-199 mg/dL, Borderline high 200-499 mg/dL, High >499 mg/dL, Very high Performed By: #### 2 4323-8, LIPNF, 58447-8, 3053-6 ####[facility] LABCLIA [id number] [place] [address] [place] VLDL CHOLESTEROL, NF 34 mg/dL High <30 [facility] Comment on above: Order Comment: Speci men Type: BLOOD SPECIMENOrdering Facility: [facility] Address: [address] [place] [address] Performed By: #### 2 4323-8, LIPNF, 23202-2, 3053-6 ####[facility] LABCLIA [id number] [place] [address] [place] T3 SerPl-mCncon 05-28-2024 T3 [Mass/Vol] 86 ng/dL Normal 79-165 [facility] Comment on above: Order Comment: Speci men Type: BLOOD SPECIMENOrdering Facility: [facility] Address: [address] [place] [address] Performed By: #### 2 4323-8, LIPNF, 07781-9, 3053-6 ####[facility] LABCLIA [id number] [place] [address] [place] T4 Free SerPl-mCncon 025 Free T4 [Mass/Vol] 0.9 ng/dL Normal 0.9-1.7 [facility] Comment on above: Order Comment: Speci men Type: BLOOD SPECIMENOrdering Facility: [facility] Address: [address] [place] [address] Performed By: #### 3 024-7, 3016-3, 2276-4 ####[facility] LABCLIA [id number] [place] [id number] THYROID PEROXIDASE ANTIBODYo n 05-28-2024 TPO Ab Qn 10.1 [IU]/mL High <5.6 [facility] Comment on above: Order Comment: Dixon martinez Type: BLOOD SPECIMENOrdering Facility: [facility] Address: [address] [place] [address] Result Comment: Thyr oid Peroxidase Antibody test is used as an aid in diagnosis of autoimmune thyroid disease. Clinical correlation is required. Performed By: #### M ICRO ####[facility] LABCLIA [id number] [address] [place] TSH SerPl-aCncon 05-28-2024 TSH Qn 3.070 m[IU]/L Normal 0.270-4.200 [facility] Comment on above: Order Comment: Dixon martinez Type: BLOOD SPECIMENOrdering Facility: [facility] Address: [address] [place] [address] Result Comment: If t he patient is , TSH reference range varies by gestational period: First Trimester (weeks 9-12): 0.180-2.990 mIU/L Second Trimester: 0.110-3.980 mIU/L Third Trimester: 0.480-4.710 mIU/L Michael Vences et al. A Practical Approach for the Verifications and Determination of Site- and Trimester-Specific Reference Intervals for Thyroid Function tests in . Thyroid, 2019:29:3:412-420. Ramses E, et al. 2017 Guidelines of the [place] Thyroid Association for the Diagnosis and Management of Thyroid Disease during and the . Thyroid, 2017:27:3:315-389. Performed By: #### 3 024-7, 3016-3, 2276-4 ####[facility] LABIA [id number] [address] [place] CNCOon 01-11-[address] [facility] CNOVon 09-26-2023 CNOV Office Visit (FAMPWS) PATTIE BALDERAS ([id number]) 1995 F Date Time Provider Department 09/26/23 9:00 AM ELIUD PEÑALOZA During your visit today, we recorded the following information about you: Pulse Respiration Blood pressure Weight 86/minute 14/minute 120/71 65.8 kg Eliud Peñaloza, COLLEGE INTERN.HEAD ATHLETIC TRAINER/STRENGTH COACH 09/26/2023 9:07 AM Signed Chief Complaint Patient [...] - FLUOXETINE 10 MG CAPSULE Eliud Peñaloza APRN.HEAD ATHLETIC TRAINER/STRENGTH COACH Allergies As of Date: 09/26/2023 Noted Allergy [...] - B5/B6/P (more content not included)... [facility] BALDER[facility] ([id number]) 1995 F Date Time Provider Department 07/27/23 [facility]UD [facility] During your visit today, we recorded the following information about you: Eliud Peñaloza APRN.HEAD ATHLETIC TRAINER/STRENGTH COACH 07/27/2023 8:36 AM Signed Please let patient [...] Status:Closed by KENROY MARSHALL on 07/27/[address] [facility] ECHOon 07-25-2023 Echocardiography Echocardiography Report: Transthoracic Echo [facility]ly [facility] Date of service: 07/25/2023 3:30:04 PM PLAYER Ordering physician: ELIUD PEÑALOZA Indication: Cardiac murmur Technologist: Adamaris Price [facility] Interpreting physician: Nila Roche MD PATIENT: Name: [...] * * Final * * * CC [employer] Medical Image : [id number] Normal [facility] ALLIED HEALTHon 07-11-2023 ALLIED HEALTH HNO ID: [id number] Author: RAMA TANG RT(R) Service: ? Author Type: Er Manager Type: Allied Health Filed: 07/11/2023 14:31 Note [...] PATIENT PRESENTS WITH AN IMPLANTABLE OR ATTACHED TELESALES ADVISOR: No ALLERGIES: Reviewed and unchanged CONTRAST ALLERGY: [...] July 11, 2023 TIME: 2:30 PM Normal [facility] CNOVon 07-11-2023 CNOV [facility] NICKIPATTIE COTTON ([id number]) 1995 F Date Time Provider Department 07/11/23 8:20 AM ELIUD PEÑALOZA During your visit today, we recorded the following information about you: Pulse Respiration Blood pressure Weight 72/minute 14/minute 112/72 64.4 kg Eliud Peñaloza, COLLEGE INTERN.HEAD ATHLETIC TRAINER/STRENGTH COACH 07/11/2023 8:47 AM Signed Chief Complaint Patient [...] XR ABDOMEN 1V SUPINE E Aravind [employer] ABRASIVE BAND WINDER Student I have personally seen and examined the patient and performed the medical-decision making components. I have reviewed the Advanced Practice Registered Nurse (COLLEGE INTERN) student's documentation and verified the findings in the note as written. Any additions or changes are noted in bold/italics. Eliud Peñaloza APRN.HEAD ATHLETIC TRAINER/STRENGTH COACH Allergies As of Date: 07/11/2023 Noted Allergy Reaction TEA TREE 07/02/2021 4 - Hives Date Reviewed: 07/11/2023 Reviewed by: Kayla Mandel MA - Fully Assessed Reason for Visit: ER F/U [41] Primary Visit Diagnosis:Left lower quadrant abdominal pain [R10.32] Other Visit Diagnosis:Nausea and vomiting, unspecified vomiting type [R11.2] (more content not included)... Normal [facility] FABRIZIONon 07-11-2023 CNPN Telephone (FAMPWS) NICKIPATTIE COTTON ([id number]) 1995 F Date Time Provider Department 07/11/23 ELIUD PEÑALOZA During your visit today, we recorded the following information about you: Eilud Peñaloza APRN.FABRIZIO 07/11/2023 9:37 AM Signed Please let patient know their xray is normal. Lilia Tan MA 07/11/2023 9:47 AM Signed Pt notified of results via FamilyApp[employer]. Lilia Tan Ma Allergies As of Date: [...] Status:Closed by LILIA TAN on 07/11/23 [facility] PATTIE BALDERAS ([id number]) 1995 F Date Time Provider Department 07/11/23 ELIUD PEÑALOZA During your visit today, we recorded the following information about you: Eliud Peñaloza APRN.[facility] 07/11/2023 3:20 PM Signed Please let patient know their CT is normal. Lilia Tan MA 07/11/2023 3:24 PM Signed Pt notified of results via TheGrid. Lilia Tan Ma Allergies As of Date: [...] Encounter Status:Closed by LILIA TAN on 07/11/[address] [facility] [address] ABD/PEL W IVCONon 024 CT ABD/PEL W IVCON * * *Final Report* * * DATE OF EXAM: Jul 11 2023 2:25PM [facility] 0530 - CT ABD/PEL W IVCON / [...] unremarkable. Fat-containing umbilical hernia. Lower thorax: Unremarkable. Harnessmaker (topogram) images: No additional findings. IMPRESSION: No acute findings in the abdomen and pelvis. Projection Camera Operator: [facility] Transcribe Date/Time: Jul 11 2023 2:42P Dictated by : STONE FLOREZ MD This examination was interpreted and the report reviewed and electronically signed by: STONE FLOREZ MD on Jul 11 2023 3:07PM EST [id number] Normal [facility] CT Abdomen and Pelvis W cont rast Kristy 07-11-2023 [facility] XR ABDOMEN 1V SUPINEon 07-10 XR ABDOMEN [...] abnormalities. IMPRESSION: NO ACUTE ABDOMINAL PATHOLOGY VISUALIZED Projection Camera Operator: [facility] Transcribe Date/Time: Jul 11 2023 9:07A Dictated by : STEVEN BECKER MD This examination was interpreted and the report reviewed and electronically signed by: STEVEN BECKER MD on Jul 11 2023 9:08AM EST [id number] Normal [facility] XR Abdomen Supine and Uprigh ton 07-11-2023 IMPRESSION: NO ACUTE ABDOMINAL PATHOLOGY VISUALIZED Projection Camera Operator: [facility] Transcribe Date/Time: Jul 11 2023 9:07A Dictated [...] acute osseous abnormalities. DIVISION OF RADIOLOGY Provider, [facility] - 07/11/2023 * * *Final Report* * [...] IMPRESSION IMPRESSION: NO ACUTE ABDOMINAL PATHOLOGY VISUALIZED Projection Camera Operator: [facility] Transcribe Date/Time: Jul 11 2023 9:07A Dictated by : STEVEN BECKER MD This examination was interpreted and the report reviewed and electronically signed by: STEVEN BECKER MD on Jul 11 2023 9:08AM EST [facility] Radiology Study observation (narrative) [facility] XR Abdomen Supine and Uprigh tOrdered By: Ccf Provider on 07-11-2023 [facility] Absolute lymphocyte countOrd ered By: Mandeep Flynn on 07-06-2023 Lymphocytes Auto (Unsp spec) [#/Vol] 0.25 10*3/uL 0.83-4.51 [facility] Automated lymphocyte count a s percentage of total leukocytesOrdered By: Mandeep Flynn on 07-06-2023 Lymphocytes/100 WBC Auto (Unsp spec) 2.7 % 19-41 [facility] Basophil percentageOrdered B y: Mandeep Flynn on 07-06-2023 Basophil percentage 0 SEEN /hpf 0-5 [facility] Basophils/100 WBC (Bld) 0.2 % 0-1 [facility] Bilirubin [Mass/Vol] 0.90 mg/dL 0.20-1.00 [facility] Comment on above: For patients on eltr ombopag therapy, use of Dimension [place] TBIL is not recommended. Chloride [Moles/Vol] 107 mmol/L 98-107 [facility] Eosinophils/100 WBC (Bld) 0.0 % 0-5 [facility] Glucose [Mass/Vol] 126 mg/dL 74-106 [facility] Comment on above: Fasting Glucose resu lt greater than or equal to 126 mg/dL suggests DIABETES MELLITUS per A.D.A. criteria. Hemoglobin (Bld) [Mass/Vol] 13.6 g/dL 12.0-15.0 [facility] Monocytes/100 WBC (Bld) 3.8 % 0-10 [facility] Neutrophils (Bld) [#/Vol] 8.5 10*3/uL 2.0-7.7 [facility] Neutrophils/100 WBC (Bld) 93.0 % 47-70 [facility] Potassium [Moles/Vol] 3.6 mmol/L 3.5-5.1 [facility] Protein [Mass/Vol] 7.0 g/dL 6.4-8.2 [facility] Sodium [Moles/Vol] 140 mmol/L 136-145 [facility] WBC (Bld) [#/Vol] 9.1 10*3/uL 4.4-11.0 [facility] Bilirubin Test strip Ql (U)O rdered By: Mandeep Flynn on 07-06-2023 Bilirubin Ql (U) 1 mg/dL Negative [facility] Comment on above: COLOR OF URINE MAY A FFECT DIPSTICK RESULTS. Determination of erythrocyte mean corpuscular volume (MCV)Ordered By: Mandeep Flynn on 07-06-2023 MCV (RBC) [Entitic vol] 87.2 fL 81-99 [facility] Erythrocyte distribution wid th ratioOrdered By: Mandeep Flynn on 07-06-2023 Erythrocyte distribution width (RBC) [Ratio] 12.6 % 11.6-14.6 [facility] Erythrocyte distribution wid th standard deviationOrdered By: Mandeep Flynn on 07-06-2023 Erythrocyte distribution width (RBC) [Entitic vol] 39.6 fL 35.1-43.9 [facility] Hematocrit Auto (Bld) [Volum e fraction]Ordered By: Mandeep Flynn on 07-06-2023 Hematocrit (Bld) [Volume fraction] 40.8 % 37-47 [facility] Immature granulocytes/100 WB C Auto (Bld)Ordered By: Mandeep Flynn on 07-06-2023 Immature granulocytes/100 WBC (Bld) 0.300 % 0.0-0.9 [facility] Comment on above: IG% - Immature Granu locytes (promyelocytes, myelocytes and metamyelocytes) > 1% indicates that a LEFT SHIFT is Present. Ketones Test strip Ql (U)Ord ered By: Mandeep Flynn on 07-06-2023 Ketones Ql (U) 5 mg/dl Negative [facility] Laboratory - Chemistry and C hemistry - challengeOrdered By: Mandeep Flynn on 07-06-2023 Albumin/Globulin [Mass ratio] 1.1 {ratio} 0.9-2.4 [facility] ALP [Catalytic activity/Vol] 51 U/L 45-117 [facility] ALT [Catalytic activity/Vol] 26 U/L 13-56 [facility] CO2 [Moles/Vol] 26.0 mmol/L 21.0-32.0 [facility] Globulin (S) [Mass/Vol] 3.3 g/dL 2.2-4.2 [facility] Lipase [Catalytic activity/Vol] 29 U/L 13-75 [facility] Comment on above: Please note:LIPASE r evised reference range effective 22. New Lipase methodology. Expected to produce lower values than the previous assay method. NEW Reference Range: 13 - 75 U/L Urea nitrogen/Creatinine [Mass ratio] 23.9 mg/mg 10-20 [facility] - Hematology and Cell countsOrdered By: Mandeep Flynn on 07-06-2023 MCH (RBC) [Entitic mass] 29.1 pg 27.0-32.0 [facility] MCHC (RBC) [Mass/Vol] 33.3 g/dL 32-36 [facility] Nucleated RBC/100 WBC (Bld) [Ratio] 0 % 0-5 [facility] Platelet mean volume (Bld) [Entitic vol] 11.1 fL 6.2-12.0 [facility] Platelets (Bld) [#/Vol] 186 10*3/uL 150-450 [facility] Mucus LM Ql (Urine sed)Order ed By: Mandeep Flynn on 07-06-2023 Mucus Ql (Urine sed) 0 SEEN /hpf [facility] Nitrite Test strip Ql (U)Ord ered By: Mandeep Flynn on 07-06-2023 Nitrite Ql (U) Negative Negative [facility] No Panel InformationOrdered By: Mandeep Flynn on 07-06-2023 Urine RBC 0 SEEN /hpf 0-5 [facility] Estimated Creatinine Clearance Calc 102.78 ml/min [facility] Estimated GFR (MDRD) Amer 126 mL/min >60 [facility] Comment on above: GFR Calc Estimated GFR (MDRD) Non-Af Amer 104 mL/min >60 [facility] Comment on above: Non- GFR Calc Protein Test strip Ql (U)Ord ered By: Mandeep Flynn on 07-06-2023 Protein Ql (U) 30 mg/dl Negative [facility] RBC Auto (Bld) [#/Vol]Ordere d By: Mandeep Flynn on 07-06-2023 RBC (Bld) [#/Vol] 4.68 10*6/uL 4.2-5.4 [facility] Serum or plasma calcium clau urement (mass/volume)Ordered By: Mandeep Flynn on 07-06-2023 Calcium [Mass/Vol] 8.5 mg/dL 8.5-10.1 [facility] Serum or plasma choriogonado tropin detectionOrdered By: Mandeep Flynn on 07-06-2023 HCG ( test) Ql Negative [facility] Serum or plasma creatinine m easurement (mass/volume)Ordered By: Mandeep Flynn on 07-06-2023 Creatinine [Mass/Vol] 0.71 mg/dL 0.55-1.02 [facility] Comment on above: The validity of the calculated GFR & GFRAA in patients over 70 years has not been determined. Clinical correlation is essential. Serum or plasma urea nitroge n measurement (mass/volume)Ordered By: Mandeep Flynn on 07-06-2023 Urea nitrogen [Mass/Vol] 17 mg/dL 7-18 [facility] Squamous epithelial cells de tection in urine sediment by light microscopyOrdered By: Mandeep Flynn on 07-06-2023 Epithelial cells.squamous LM Ql (Urine sed) 0-5 SEEN /hpf 5-10 [facility] Thin prep Papanicolaou smear with manual screeningOrdered By: Mandeep Flynn on 07-06-2023 Thin prep Papanicolaou smear with manual screening 3.7 g/dL 3.2-5.0 [facility] Thin prep Papanicolaou smear with manual screening 25 U/L 15-37 [facility] Thin prep Papanicolaou smear with manual screening 7 5-15 [facility] Urine blood detectionOrdered By: Mandeep Flynn on 07-06-2023 RBC Ql (U) Negative Negative [facility] Urine clarityOrdered By: Clemencia Flynn on 07-06-2023 Clarity (U) Clear Clear [facility] Urine color determinationOrd ered By: Mandeep Flynn on 07-06-2023 Color (U) Yellow Yellow [facility] Urine glucose detectionOrder ed By: Mandeep Flynn on 07-06-2023 Glucose Ql (U) Normal mg/dl Normal [facility] Urine leukocyte esterase det ection by dipstickOrdered By: Mandeep Flynn on 07-06-2023 Leukocyte esterase Test strip Ql (U) 25 /ul Negative [facility] Urine pHOrdered By: Mandeep le on 07-06-2023 pH (U) 7.0 [pH] 5.0 - 8.0 [facility] Urine sediment bacteria coun t by microscopy (number/high power field)Ordered By: Mandeep Flynn on 07-06-2023 Bacteria LM.HPF (Urine sed) [#/Area] 0 /[HPF] None Seen [facility] Urine specific gravity measu rementOrdered By: Mandeep Flynn on 07-06-2023 Specific gravity (U) [Rel density] 1.010 1.002-1.030 [facility] Urine urobilinogen measureme ntOrdered By: Mandeep Flynn on 07-06-2023 Urobilinogen Ql (U) Normal mg/dl Normal [facility] ESR Westergren method (Bld) [Velocity]on 06-29-2023 ESR (Bld) [Velocity] 2 mm/h 0 - 20 mm/hr Cl [facility] Comprehensive metabolic 2000 panelon 06-20-2023 Albumin [Mass/Vol] 4.5 g/dL 3.9 - 4.9 g/dL [facility] ALP [Catalytic activity/Vol] 59 U/L 34 - 123 U/L [facility] ALT [Catalytic activity/Vol] 16 U/L 7 - 38 U/L [facility] Anion gap [Moles/Vol] 11 mmol/L 9 - 18 mmol/L [facility] AST [Catalytic activity/Vol] 18 U/L 13 - 35 U/L [facility] Bilirubin [Mass/Vol] 0.3 mg/dL 0.2 - 1 .3 mg/dL [facility] Calcium [Mass/Vol] 9.7 mg/dL 8.5 - 10. 2 mg/dL [facility] Chloride [Moles/Vol] 105 mmol/L 97 - 10 5 mmol/L [facility] CO2 [Moles/Vol] 24 mmol/L 22 - 30 mmol/L [facility] Creatinine [Mass/Vol] 0.63 mg/dL 0.58 - 0.96 mg/dL [facility] Estimated Glomerular Filtration Rate 125 mL/min/1.73m >=60 mL/min/1.73m [facility] Glucose [Mass/Vol] 75 mg/dL 74 - 99 mg/dL [facility] Potassium [Moles/Vol] 4.1 mmol/L 3.7 - 5.1 mmol/L [facility] Protein [Mass/Vol] 6.8 g/dL 6.3 - 8.0 g/dL [facility] Sodium [Moles/Vol] 140 mmol/L 136 - 144 mmol/L [facility] Urea nitrogen [Mass/Vol] 11 mg/dL 7 - 21 mg/d L [facility] FERRITIN BLDon 06-20-2023 Ferritin [Mass/Vol] 17.2 ng/mL 14.7 - 2 05.1 ng/mL [facility] FOLATE SERUMon 06-20-2023 Folate [Mass/Vol] 6.2 ng/mL >4.7 ng/mL [facility] HbA1c (Bld)on 06-20-2023 Average glucose Estimated from glycated hemoglobin (Bld) [Mass/Vol] 91 mg/dL [facility] HbA1c (Bld) [Mass fraction] 4.8 % 4.3 - 5.6 % [facility] LIPID PANEL, NONFASTINGon Cholesterol [Mass/Vol] 169 mg/dL <200 mg/dL [facility] HDL Cholesterol, Nonfasting 57 mg/dL >39 mg/dL [facility] LDL Cholesterol, Nonfasting 101 mg/dL High <100 mg/dL [facility] LDL/HDL Ratio, Nonfasting 1.77 mg/dL <2.54 mg/dL [facility] Non HDL Cholesterol, Nonfasting 112 mg/dL <130 mg/dL [facility] Total Chol/HDL Ratio, Nonfasting 2.96 mg/dL <5.10 mg/dL [facility] Triglycerides, Nonfasting 55 mg/dL <150 mg/dL [facility] VLDL Cholesterol, Nonfasting 11 mg/dL <30 mg/dL [facility] T3 BLDon 06-20-2023 T3 [Mass/Vol] 114 ng/dL 79 - 165 ng/dL [facility] T4 FREE/FREE THYROXon 2023 Free T4 [Mass/Vol] 1.1 ng/dL 0.9 - 1.7 ng/dL [facility] THYROID PEROXIDASE ANTIBODY BLOODon 06-20-2023 TPO Ab Qn 13.6 [IU]/mL High <5.6 IU/mL [facility] TSH BLDon 06-20-2023 TSH Qn 2.540 m[IU]/L 0.270 - 4.200 mIU/L [facility] VITAMIN B12 BLOODon 06-20-19 Cobalamin (Vitamin B12) [Mass/Vol] 799 pg/mL 232 - 1,245 pg/mL [facility] .Auto Diffon 03-01-2023 Basophil, Absolute 0.0 10 3/mcL Normal 0.0-0.2 [facility] ([place]) Comment on above: Performed By: #### V IDH, ANEU, ADIFF, CBC #### [address] [address] Basophils/100 WBC (Bld) 0.6 % Normal 0.0-2.5 A [facility] ([place]) Comment on above: Performed By: #### V IDH, ANEU, ADIFF, CBC #### [address] [address] Eosinophil, Absolute 0.2 10 3/mcL Normal 0.0-0.4 [facility] ([place]) Comment on above: Performed By: #### V IDH, ANEU, ADIFF, CBC #### [address] [address] Eosinophils/100 WBC (Bld) 3.5 % Normal 0.0-7.0 [facility] ([place]) Comment on above: Performed By: #### V IDH, ANEU, ADIFF, CBC #### [address] [address] Lymphocyte, Absolute 1.9 10 3/mcL Normal 0.8-3.9 [facility] ([place]) Comment on above: Performed By: #### V IDH, ANEU, ADIFF, CBC #### [address] [address] Lymphocytes/100 WBC (Bld) 31.3 % Normal 10.0-50.0 [facility] ([place]) Comment on above: Performed By: #### V IDH, ANEU, ADIFF, CBC #### [address] [address] Monocyte, Absolute 0.6 10 3/mcL Normal 0.2-1.0 [facility] ([place]) Comment on above: Performed By: #### V IDH, ANEU, ADIFF, CBC #### [address] [address] Monocytes/100 WBC (Bld) 9.7 % Normal 1.7-13.0 A [facility] ([place]) Comment on above: Performed By: #### V IDH, ANEU, ADIFF, CBC #### [address] [address] Neutrophils/100 WBC (Bld) 54.9 % Normal 37.0-80.0 [facility] ([place]) Comment on above: Performed By: #### V IDH, ANEU, ADIFF, CBC #### [address] [address] .NEUABSon 03-01-2023 Neutrophil, Absolute 3.3 10 3/mcL Normal 2.9-6.2 [facility] ([place]) Comment on above: Performed By: #### V IDH, ANEU, ADIFF, CBC #### [address] [address] CBCon 03-01-2023 Erythrocyte distribution width (RBC) [Ratio] 13.8 % Normal 11.5-14.5 [facility] ([place]) Comment on above: Performed By: #### V IDH, ANEU, ADIFF, CBC #### [address] [address] Hematocrit (Bld) [Volume fraction] 42.9 % Normal 37.0-47.0 [facility] ([place]) Comment on above: Performed By: #### V IDH, ANEU, ADIFF, CBC #### [address] [address] Hgb 14.6 G/dL Normal 12.0-16.0 [facility] ([place]) Comment on above: Performed By: #### V IDH, ANEU, ADIFF, CBC #### [address] [address] MCH (RBC) [Entitic mass] 29.6 pg Normal 27.0-31.2 [facility] ([place]) Comment on above: Performed By: #### V IDH, ANEU, ADIFF, CBC #### [address] [address] MCHC 34.0 G/dL Normal 33.0-37.0 [facility] ([place]) Comment on above: Performed By: #### V IDH, ANEU, ADIFF, CBC #### [address] [address] MCV (RBC) [Entitic vol] 87.1 fL Normal 80.0-94.0 A [facility] ([place]) Comment on above: Performed By: #### V IDH, ANEU, ADIFF, CBC #### [address] [address] Platelet 190 10 3/mcL Normal 130-400 [facility] ([place]) Comment on above: Performed By: #### V IDH, ANEU, ADIFF, CBC #### [address] [address] Platelet mean volume (Bld) [Entitic vol] 9.0 fL Normal 7.4-10.4 [facility] ([place]) Comment on above: Performed By: #### V IDH, ANEU, ADIFF, CBC #### [address] [address] RBC 4.93 10 6/mcL Normal 4.20-5.40 [facility] ([place]) Comment on above: Performed By: #### V IDH, ANEU, ADIFF, CBC #### [address] [address] WBC 5.9 10 3/mcL Normal 4.6-10.8 [facility] ([place]) Comment on above: Performed By: #### V IDH, ANEU, ADIFF, CBC #### [address] [address] LABORATORYOrdered By: SYSTEM SYSTEM on 03-01-2023 25-hydroxyvitamin [...] 03-01-2023 Vit. D 25-Hydroxy 50.1 ng/mL Normal [facility] ([place]) Comment on above: Result Comment: Inte rpretive Values Based on Total 25(OH) Vitamin D: Deficient <20 ng/mL Insufficient 20 - <30 ng/mL Sufficient 30-100 ng/mL Performed By: #### V IDH, ANEU, ADIFF, CBC #### [place] [address] LABORATORYOrdered By: Joyce Sanchez on 06-04-2021 Albumin [...] 13:08-0400 Body height 162.56 cm Eliud Peñaloza [employer] Work Phone: 5(752)726-233566 [place] [address] 01-24-2025 13:08-0400 Body mass index (BMI) [Ratio] 31.4 kg/m2 Eliud Peñaloza NP-C Work Phone: 9(780)520-028973 [place] [address] 01-24-2025 13:08-0400 Body weight 83.23 kg Eliud Peñaloza [employer] Work Phone: 6(391)224-233273 [place] [address] 01-24-2025 13:08-0400 Diastolic blood pressure 81 mm[Hg] Eliud Peñaloza [employer] Work Phone: 6(461)599-796066 [place] [address] 01-24-2025 13:08-0400 Systolic blood pressure 125 mm[Hg] Eliud Peñaloza NP-C Work Phone: 3(242)309-735373 [place] [address] 01-13-2025 14:59-0400 Body height 162.56 cm Eliud Peñaloza [employer] Work Phone: 2(488)115-290066 [place] [address] 01-13-2025 14:59-0400 Body mass index (BMI) [Ratio] 30.9 kg/m2 Eliud Peñaloza [employer] Work Phone: 7(610)859-462473 [place] [address] 01-13-2025 14:59-0400 Body weight 81.64 kg Eliud Peñaloaz [employer] Work Phone: 1(861)208-624373 [place] [address] 01-13-2025 14:59-0400 Diastolic blood pressure 80 mm[Hg] Eliud Peñaloza [employer] Work Phone: 9(755)576-722373 [place] [address] 01-13-2025 14:59-0400 Systolic blood pressure 126 mm[Hg] Eliud Peñaloza [employer] Work Phone: 2(376)156-274173 [place] [address] 01-01-2025 09:52-0400 Body height 162.56 cm Eliud Peñaloza [employer] Work Phone: 2(513)087-438573 [place] [address] 01-01-2025 09:52-0400 Body mass index (BMI) [Ratio] 30.4 kg/m2 Eliud Peñaloza [employer] Work Phone: 3(355)002-883473 [place] [address] 01-01-2025 09:52-0400 Body weight 80.45 kg Eliud Peñaloza [employer] Work Phone: 0(709)568-116573 [place] [address] 01-01-2025 09:52-0400 Diastolic blood pressure 80 mm[Hg] Eliud Peñaloza [employer] Work Phone: 5(848)580-610773 [place] [address] 01-01-2025 09:52-0400 Systolic blood pressure 126 mm[Hg] Eliud Peñaloza [employer] Work Phone: 2(609)192-165773 [place] [address] 12-18-2024 09:42-0400 Body height 162.56 cm Eliud Peñaloza [employer] Work Phone: 9(380)933-792873 [place] [address] 12-18-2024 09:42-0400 Body mass index (BMI) [Ratio] 29.7 kg/m2 Eliud Peñaloza [employer] Work Phone: 9(826)832-662873 [place] [address] 12-18-2024 09:42-0400 Body weight 78.61 kg Eliud Peñaloza [employer] Work Phone: 1(053)163-203673 [place] [address] 12-18-2024 09:42-0400 Diastolic blood pressure 80 mm[Hg] Eliud Peñaloza [employer] Work Phone: 6(184)915-473573 [place] [address] 12-18-2024 09:42-0400 Systolic blood pressure 119 mm[Hg] Eliud Peñaloza [employer] Work Phone: 2(333)343-617273 [place] [address] 12-04-2024 10:07-0400 Body height 162.56 cm Eliud Peñaloza [employer] Work Phone: 7(118)455-951173 [place] [address] 12-04-2024 10:06-0400 Body mass index (BMI) [Ratio] 28.8 kg/m2 Eliud Peñaloza [employer] Work Phone: 6(622)521-551573 [place] [address] 12-04-2024 10:06-0400 Body weight 76.2 kg Eliud Peñaloza [employer] Work Phone: 0(925)850-100973 [place] [address] 12-04-2024 10:06-0400 Diastolic blood pressure 73 mm[Hg] Eliud Peñaloza [employer] Work Phone: 8(703)713-671873 [place] [address] 12-04-2024 10:06-0400 Systolic blood pressure 107 mm[Hg] Eliud Peñaloza [employer] Work Phone: 6(306)230-572673 [place] [address] 11-20-2024 08:47-0400 Body height 162.56 cm Eliud Peñaloza [employer] Work Phone: 8(250)701-903173 [place] [address] 11-20-2024 08:47-0400 Body mass index (BMI) [Ratio] 28.3 kg/m2 Eliud Peñaloza [employer] Work Phone: 8(978)068-222773 [place] [address] 11-20-2024 08:47-0400 Body weight 74.95 kg Eliud Peñaloza [employer] Work Phone: 6(542)203-711273 [place] [address] 11-20-2024 08:47-0400 Diastolic blood pressure 70 mm[Hg] Eliud Peñaloza [employer] Work Phone: 1(014)832-955173 [place] [address] 11-20-2024 08:47-0400 Systolic blood pressure 110 mm[Hg] Eliud Peñaloza [employer] Work Phone: 2(183)175-260873 [place] [address] 11-06-2024 10:59-0400 Body height 162.56 cm Eliud Peñaloza [employer] Work Phone: 9(638)839-864873 [place] [address] 11-06-2024 10:59-0400 Body mass index (BMI) [Ratio] 27.6 kg/m2 Eliud Peñaloza [employer] Work Phone: 0(488)199-792473 [place] [address] 11-06-2024 10:59-0400 Body weight 73.19 kg Eliud Peñaloza [employer] Work Phone: 4(218)370-829173 [place] [address] 11-06-2024 10:59-0400 Diastolic blood pressure 74 mm[Hg] Eliud Peñaloza [employer] Work Phone: 9(007)091-186773 [place] [address] 11-06-2024 10:59-0400 Systolic blood pressure 114 mm[Hg] Eliud Peñaloza [employer] Work Phone: 3(314)271-766473 [place] [address] 09-30-2024 15:34-0400 Body height 162.56 cm Eliud Peñaloza [employer] Work Phone: 8(368)234-030173 [place] [address] 09-30-2024 15:34-0400 Body mass index (BMI) [Ratio] 27.1 kg/m2 Eliud Peñaloza [employer] Work Phone: 1(302)452-534873 [place] [address] 09-30-2024 15:34-0400 Body weight 71.72 kg Eliud Peñaloza [employer] Work Phone: 5(994)235-010873 [place] [address] 09-30-2024 15:34-0400 Diastolic blood pressure 77 mm[Hg] Eliud Peñaloza [employer] Work Phone: 8(394)866-358473 [place] [address] 09-30-2024 15:34-0400 Systolic blood pressure 114 mm[Hg] Eliud Peñaloza [employer] Work Phone: 2(671)094-742873 [place] [address] 09-03-2024 09:28-0400 Body height 162.56 cm Eliud Peñaloza [employer] Work Phone: 5(777)900-997473 [place] [address] 09-03-2024 09:28-0400 Body mass index (BMI) [Ratio] 25.7 kg/m2 Eliud Peñaloza [employer] Work Phone: 3(758)265-353873 [place] [address] 09-03-2024 09:28-0400 Body weight 68.09 kg Eliud Peñaloza [employer] Work Phone: 9(684)517-654973 [place] [address] 09-03-2024 09:28-0400 Diastolic blood pressure 73 mm[Hg] Eliud Peñaloza [employer] Work Phone: 1(374)541-987573 [place] [address] 09-03-2024 09:28-0400 Systolic blood pressure 120 mm[Hg] Eliud Peñaloza [employer] Work Phone: 6(012)675-390773 [place] [address] 08-06-2024 08:50-0400 Body mass index (BMI) [Ratio] 25.4 kg/m2 Eliud Peñaloza [employer] Work Phone: 2(977)334-018073 [place] [address] 08-06-2024 08:50-0400 Body weight 67.18 kg Eliud Peñaloza [employer] Work Phone: 8(293)880-886273 [place] [address] 08-06-2024 08:50-0400 Diastolic blood pressure 74 mm[Hg] Eliud Peñaloza [employer] Work Phone: 9(527)838-278873 [place] [address] 08-06-2024 08:50-0400 Systolic blood pressure 118 mm[Hg] Eliud Peñaloza [employer] Work Phone: 9(434)708-269573 [place] [address] 07-24-2024 08:53-0400 Body height 162.56 cm Eliud Peñaloza [employer] Work Phone: 5(047)375-688573 [place] [address] 07-24-2024 08:53-0400 Body mass index (BMI) [Ratio] 25.4 kg/m2 Eliud Peñaloza [employer] Work Phone: 7(784)652-049773 [place] [address] 07-24-2024 08:53-0400 Body weight 67.24 kg Eliud Peñaloza [employer] Work Phone: 7(630)322-145173 [place] [address] 07-24-2024 08:53-0400 Diastolic blood pressure 72 mm[Hg] Eliud Peñaloza [employer] Work Phone: 5(535)581-343073 [place] [address] 07-24-2024 08:53-0400 Heart rate 92 /min Eliud Knoble [employer] Work Phone: [facility] 07-24-2024 08:53-0400 Systolic blood pressure 112 mm[Hg] Eliud Peñaloza [employer] Work Phone: [facility] 07-12-2024 08:55-0400 Body height 162.56 cm Eliud Peñaloza [employer] Work Phone: [facility] 07-12-2024 08:55-0400 Body mass index (BMI) [Ratio] 25.4 kg/m2 Eliud Peñaloza [employer] Work Phone: 4(510)891-728966 [place] [address] 07-12-2024 08:55-0400 Body weight 67.35 kg Eliud Peñaloza [employer] Work Phone: [facility] 07-12-2024 08:55-0400 Diastolic blood pressure 72 mm[Hg] Eliud Peñaloza [employer] Work Phone: 7(478)724-025066 [place] [address] 07-12-2024 08:55-0400 Systolic blood pressure 112 mm[Hg] Eliud Peñaloza [employer] Work Phone: [facility] 05-30-2024 14:16-0500 Body mass index (BMI) [Ratio] 26.39 kg/m2 Eliud Peñaloza COLLEGE INTERN.HEAD ATHLETIC TRAINER/STRENGTH COACH Work Phone: [facility] 05-30-2024 14:16-0500 Body weight 67.59 kg Eliud Peñaloza APRN.HEAD ATHLETIC TRAINER/STRENGTH COACH Work Phone: [facility] 05-30-2024 14:16-0500 Diastolic blood pressure 73 mm[Hg] Eliud Peñaloza COLLEGE INTERN.HEAD ATHLETIC TRAINER/STRENGTH COACH Work Phone: [facility] 05-30-2024 14:16-0500 Heart rate 99 /min Eliud Peñaloza APRN.HEAD ATHLETIC TRAINER/STRENGTH COACH Work Phone: [facility] 05-30-2024 14:16-0500 Systolic blood pressure 117 mm[Hg] Eliud Peñaloza COLLEGE INTERN.HEAD ATHLETIC TRAINER/STRENGTH COACH Work Phone: [facility] 09-26-2023 08:46-0400 Body mass index (BMI) [Ratio] 25.69 kg/m2 Eliud Peñaloza COLLEGE INTERN.HEAD ATHLETIC TRAINER/STRENGTH COACH Work Phone: [facility] 09-26-2023 08:46-0400 Body weight 65.77 kg Eliud Peñaloza COLLEGE INTERN.HEAD ATHLETIC TRAINER/STRENGTH COACH Work Phone: [facility] 09-26-2023 08:46-0400 Diastolic blood pressure 71 mm[Hg] Eliud Peñaloza COLLEGE INTERN.HEAD ATHLETIC TRAINER/STRENGTH COACH Work Phone: [facility] 09-26-2023 08:46-0400 Heart rate 86 /min Eliud Peñaloza COLLEGE INTERN.HEAD ATHLETIC TRAINER/STRENGTH COACH Work Phone: [facility] 09-26-2023 08:46-0400 Respiratory rate 14 /min Eliud Peñaloza COLLEGE INTERN.HEAD ATHLETIC TRAINER/STRENGTH COACH Work Phone: [facility] 09-26-2023 08:46-0400 Systolic blood pressure 120 mm[Hg] Eliud Peñaloza COLLEGE INTERN.HEAD ATHLETIC TRAINER/STRENGTH COACH Work Phone: [facility] 07-11-2023 08:05-0400 Body weight 64.41 kg Eliud Peñaloza COLLEGE INTERN.HEAD ATHLETIC TRAINER/STRENGTH COACH Work Phone: [facility] 07-11-2023 08:05-0400 Diastolic blood pressure 72 mm[Hg] Eliud Peñaloza COLLEGE INTERN.HEAD ATHLETIC TRAINER/STRENGTH COACH Work Phone: [facility] 07-11-2023 08:05-0400 Heart rate 72 /min Eliud Peñaloza COLLEGE INTERN.HEAD ATHLETIC TRAINER/STRENGTH COACH Work Phone: [facility] 07-11-2023 08:05-0400 Respiratory rate 14 /min Eliud Peñaloza COLLEGE INTERN.HEAD ATHLETIC TRAINER/STRENGTH COACH Work Phone: [facility] 07-11-2023 08:05-0400 Systolic blood pressure 112 mm[Hg] Eliud Peñaloza COLLEGE INTERN.HEAD ATHLETIC TRAINER/STRENGTH COACH Work Phone: [facility] 07-06-2023 10:00-0400 Diastolic blood pressure 88 mm[Hg] [facility] 07-06-2023 10:00-0400 Heart rate 64 /min [facility] 07-06-2023 10:00-0400 Respiratory rate 16 /min [facility] 07-06-2023 10:00-0400 SaO2% (BldA) [Mass fraction] 99 % [facility] 07-06-2023 10:00-0400 Systolic blood pressure 110 mm[Hg] [facility] 07-06-2023 08:00-0400 Body height 162.56 cm [facility] 07-06-2023 08:00-0400 Body mass index (BMI) [Ratio] 24.6 kg/m2 [facility] 07-06-2023 08:00-0400 Body temperature 97.3 [degF] [facility] 07-06-2023 08:00-0400 Body weight 65.1 kg [facility] 06-26-2023 08:12-0500 Body height 160 cm Danielle Donato MD Work Phone: [facility] 06-26-2023 08:12-0500 Body temperature 97.7 [degF] Danielle Donato MD Work Phone: [facility] 06-26-2023 08:12-0500 Body weight 67.04 kg Danielle Donato MD Work Phone: [facility] 06-26-2023 08:12-0500 Diastolic blood pressure 64 mm[Hg] Danielle Donato MD Work Phone: [facility] 06-26-2023 08:12-0500 Heart rate 83 /min Danielle Donato MD Work Phone: [facility] 06-26-2023 08:12-0500 SaO2% (BldA) [Mass fraction] 98 % Danielle Donato MD Work Phone: [facility] 06-26-2023 08:12-0500 Systolic blood pressure 108 mm[Hg] Danielle Donato MD Work Phone: [facility] 06-20-2023 08:36-0500 Body height 160 cm Eliud Peñaloza APRN.CNP Work Phone: [facility] 06-20-2023 08:36-0500 Body weight 65.32 kg Eliud Peñaloza COLLEGE INTERN.HEAD ATHLETIC TRAINER/STRENGTH COACH Work Phone: [facility] 06-20-2023 08:36-0500 Diastolic blood pressure 60 mm[Hg] Eliud Peñaloza COLLEGE INTERN.HEAD ATHLETIC TRAINER/STRENGTH COACH Work Phone: [facility] 06-20-2023 08:36-0500 Heart rate 88 /min Eliud Peñaloza COLLEGE INTERN.HEAD ATHLETIC TRAINER/STRENGTH COACH Work Phone: [facility] 06-20-2023 08:36-0500 Respiratory rate 14 /min Eliud Peñaloza COLLEGE INTERN.HEAD ATHLETIC TRAINER/STRENGTH COACH Work Phone: [facility] 06-20-2023 08:36-0500 Systolic blood pressure 100 mm[Hg] Eliud Peñaloza COLLEGE INTERN.HEAD ATHLETIC TRAINER/STRENGTH COACH Work Phone: [facility] Encounters Encounter Date Encounter Type Care Provider Facility Start: 02-06-2025 ambulatory Eliud Peñaloza Facilit y:[facility] Start: 02-06-2025 ambulatory Elke Fuller [facility]ty:[facility] Start: 01-31-2025 End: 01-31-2025 ambulatory Eliud Peñaloza [facility] Start: 01-24-2025 End: 01-24-[address] Elke Voss DO -[facility] Work Phone: Start: 01-24-2025 End: 01-24-2025 ambulatory Eliud Peñaloza WELT BEATER-C Work Phone: -[facility] Start: 01-14-2025 End: 01-14-2025 ambulatory FELIPA Prasad [facility] Start: 01-13-2025 End: 01-13-2025 ambulatory Eliud Peñaloza WELT BEATER-C Work Phone: -Laboratory Specimen Start: 01-13-2025 End: 01-13-[address] Jacki Jernigan MD -Laboratory Specimen Work Phone: Start: 01-13-2025 End: 01-13-[address] Jacki Jernigan MD -[facility] Work Phone: Start: 01-13-2025 End: 01-13-2025 ambulatory Eliud Peñaloza WELT BEATER-C Work Phone: -[facility] Start: 01-13-2025 End: 01-13-2025 ambulatory Eliud Peñaloza Facility:[facility] Start: 01-07-2025 End: 01-07-2025 Refill Eliud Peñaloza COLLEGE INTERN.HEAD ATHLETIC TRAINER/STRENGTH COACH Work Phone: [facility] Comment on above: Refill Request Start: 01-01-2025 End: 01-01-2025 Patient encounter procedure Debra Montalvo CNM -[facility] Work Phone: Start: 01-01-2025 End: 01-01-2025 ambulatory Eliud Peñaloza WELT BEATER-C Work Phone: [facility] Start: 12-18-2024 End: 12-18-2024 ambulatory ADAM [facility] Start: 12-18-2024 End: 12-18-2024 Patient encounter procedure Sherry HAASC -[facility] Work Phone: Start: 12-18-2024 End: 12-18-2024 ambulatory Eliud Peñaloza WELT BEATER-C Work Phone: [facility] Start: 12-17-2024 End: 12-20-2024 Refill Eliud Peñaloza COLLEGE INTERN.HEAD ATHLETIC TRAINER/STRENGTH COACH Work Phone: [facility] Comment on above: Refill Request Start: 12-04-2024 End: 12-04-[address] Elke Voss DO -[facility] Work Phone: Start: 12-04-2024 End: 12-04-2024 ambulatory Eliud Peñaloza WELT BEATER-C Work Phone: -[facility] Start: 12-04-2024 End: 12-04-2024 ambulatory Elke Voss Facility:[facility] Start: 11-27-2024 End: 11-27-2024 ambulatory Eliud Peñaloza WELT BEATER-C Work Phone: -Laboratory Start: 11-27-2024 End: 11-27-[address] Jacki Jernigan MD -Laboratory Work Phone: Start: 11-27-2024 End: 11-27-2024 ambulatory Eliud Peñaloza Facility:[facility] Start: 11-20-2024 End: 11-20-2024 ambulatory ADAM MAGGIE [facility] Start: 11-20-2024 End: 11-20-2024 Patient encounter procedure Sherry Barone WELT BEATER-C -[facility] Work Phone: Start: 11-20-2024 End: 11-20-2024 ambulatory Eliud Peñaloza WELT BEATER-C Work Phone: -[facility] Start: 11-20-2024 End: 11-20-2024 ambulatory Eliud Peñaloza Facility:[facility] Start: 11-10-2024 End: 11-11-2024 Refill Eliud Peñaloza COLLEGE INTERN.HEAD ATHLETIC TRAINER/STRENGTH COACH Work Phone: [facility] Comment on above: Refill Request Start: 11-06-2024 End: 11-06-[address] Jacki Jernigan MD -[facility] Work Phone: Start: 11-06-2024 End: 11-06-2024 ambulatory Eliud Peñaloza WELT BEATER-C Work Phone: -[facility] Start: 10-11-2024 End: 10-11-2024 ambulatory JACKI JERNIGAN [facility] Start: 09-30-2024 End: 09-30-2024 Patient encounter procedure Debra Montalvo CNM -[facility] Work Phone: Start: 09-30-2024 End: 09-30-2024 ambulatory Eliud Peñaloza WELT BEATER-C Work Phone: [facility] Work Phone: Start: 09-25-2024 End: 09-25-2024 ambulatory JESÚS Vences NELLIE [facility] Start: 09-10-2024 End: 09-10-2024 ambulatory MARANDA WILLINGHAM [facility] Start: 09-03-2024 End: 09-03-[address] Jacki Jernigan MD -[facility] Work Phone: Start: 09-03-2024 End: 09-03-2024 ambulatory Eliud Peñaloza WELT BEATER-C Work Phone: [facility] Work Phone: Start: 08-06-2024 End: 08-06-[address] Elke Voss DO -[facility] Work Phone: Start: 08-06-2024 End: 08-06-2024 ambulatory Eliud Peñaloza [facility] Start: 07-29-2024 End: 07-29-2024 Non-patient / Non-visit Dr. Dequan Alejandra MD -[facility] Work Phone: Start: 07-29-2024 End: 07-29-2024 ambulatory Eliud Peñaloza WELT BEATER-C Work Phone: [facility] Work Phone: Start: 07-29-2024 End: 07-29-[address] Jacki Jernigan MD -Pulmonary Services/Neurology Work Phone: Start: 07-29-2024 End: 07-29-2024 ambulatory Eliud Peñaloza Facility:[facility] Start: 07-24-2024 End: 07-24-[address] Jacki Jernigan MD -[facility] Work Phone: Start: 07-24-2024 End: 07-24-2024 ambulatory Eliud Peñaloza [facility] Start: 07-12-2024 End: 07-12-2024 ambulatory Eliud Peñaloza WELT BEATER-C Work Phone: [facility] Work Phone: Start: 07-12-2024 End: 07-12-2024 Patient encounter procedure Debra Montalvo CNM -[facility] Work Phone: Start: 07-12-2024 End: 07-12-2024 ambulatory Eliud Peñaloza [facility] Start: 07-12-2024 End: 07-12-2024 ambulatory Eliud Peñaloza Facility:[facility] Start: 07-04-2024 End: 07-04-2024 ambulatory Eliud Peñaloza APRN.HEAD ATHLETIC TRAINER/STRENGTH COACH Work Phone: [facility] Comment on above: Anxiety with depress ion (Primary Dx) Start: 07-04-2024 End: 07-04-2024 Telemedicine consultation with patient Eliud Peñaloza APRN.HEAD ATHLETIC TRAINER/STRENGTH COACH Work Phone: [facility] Start: 06-21-2024 Non-patient / Non-visit Laura garvey RN -[facility] Work Phone: Start: 06-21-2024 ambulatory Laura Jackson Facility :[facility] Start: 05-30-2024 End: 05-30-2024 Patient encounter procedure Eliud Peñaloza APRN.HEAD ATHLETIC TRAINER/STRENGTH COACH Work Phone: [facility] Comment on above: Wellness examination (Primary Dx); Encounter for screening examination for other mental health and behavioral disorders; Anxiety with depression; Edgar's disease; Iron deficiency anemia, unspecified iron deficiency anemia type; Screening for diabetes mellitus; Encounter for lipid screening for cardiovascular disease Start: 05-30-2024 End: 05-30-2024 Patient encounter status Eliud Peñaloza APRN.HEAD ATHLETIC TRAINER/STRENGTH COACH Work Phone: [facility] Work Phone: Start: 05-30-2024 End: 05-30-2024 ambulatory ELIUD PEÑALOZA Facility:[facility] Start: 05-30-2024 Encounter for genera l adult medical examination without abnormal findings ELIUD PEÑALOZA [facility] Start: 05-28-2024 End: 05-28-2024 ambulatory ELIUD PEÑALOZA Facility:[facility] Start: 05-19-2024 End: 05-20-2024 Refill Eliud Peñaloza APRN.HEAD ATHLETIC TRAINER/STRENGTH COACH Work Phone: [facility] Comment on above: Med Change Request Start: 04-26-2024 End: 04-26-2024 ambulatory Eliud Peñaloza APRN.HEAD ATHLETIC TRAINER/STRENGTH COACH Work Phone: [facility] Comment on above: Edgar's disease (Primary Dx); Anxiety with depression; Screening for diabetes mellitus; Thyroid antibody positive; Iron deficiency anemia, unspecified iron deficiency anemia type; Encounter for lipid screening for cardiovascular disease Start: 04-26-2024 End: 04-26-2024 Telemedicine consultation with patient Eliud Peñaloza APRN.HEAD ATHLETIC TRAINER/STRENGTH COACH Work Phone: [facility] Start: 03-26-2024 End: 03-26-2024 ambulatory Eliud Peñaloza APRN.HEAD ATHLETIC TRAINER/STRENGTH COACH Work Phone: [facility] Comment on above: Anxiety with depress ion Start: 03-26-2024 End: 03-26-2024 Telemedicine consultation with patient Eliud Peñaloza APRN.HEAD ATHLETIC TRAINER/STRENGTH COACH Work Phone: [facility] Start: 02-28-2024 End: 02-28-2024 Telemedicine consultation with patient Eliud Peñaloza APRN.HEAD ATHLETIC TRAINER/STRENGTH COACH Work Phone: [facility] Start: 02-28-2024 End: 02-28-2024 ambulatory Eliud Peñaloza APRN.HEAD ATHLETIC TRAINER/STRENGTH COACH Work Phone: [facility] Comment on above: Anxiety with depress ion (Primary Dx) Start: 01-15-2024 End: 01-15-2024 ambulatory Eliud Peñaloza APRN.HEAD ATHLETIC TRAINER/STRENGTH COACH Work Phone: [facility] Comment on above: Anxiety with depress ion (Primary Dx) Start: 01-15-2024 End: 01-15-2024 Telemedicine consultation with patient Eliud Peñaloza APRN.HEAD ATHLETIC TRAINER/STRENGTH COACH Work Phone: [facility] Start: 12-15-2023 End: 12-15-2023 Telemedicine consultation with patient Eliud Peñaloza APRN.HEAD ATHLETIC TRAINER/STRENGTH COACH Work Phone: [facility] Start: 12-15-2023 End: 12-15-2023 ambulatory Eliud Peñaloza COLLEGE INTERN.HEAD ATHLETIC TRAINER/STRENGTH COACH Work Phone: [facility] Comment on above: Anxiety with depress ion Start: 11-10-2023 ambulatory Eliud slater APRN.HEAD ATHLETIC TRAINER/STRENGTH COACH Work Phone: [facility] Comment on above: Anxiety meds Start: 10-30-2023 End: 10-30-2023 Telemedicine consultation with patient Eliud Peñaloza APRN.HEAD ATHLETIC TRAINER/STRENGTH COACH Work Phone: [facility] Start: 10-30-2023 End: 10-30-2023 ambulatory Eliud Peñaloza COLLEGE INTERN.HEAD ATHLETIC TRAINER/STRENGTH COACH Work Phone: [facility] Comment on above: Anxiety with depress ion Start: 10-05-2023 ambulatory Eliud slater APRN.HEAD ATHLETIC TRAINER/STRENGTH COACH Work Phone: [facility] Start: 10-05-2023 Follow-up encounter Eliud flynn APRN.HEAD ATHLETIC TRAINER/STRENGTH COACH Work Phone: [facility] Comment on above: Medication Follow Up Start: 09-26-2023 End: 09-26-2023 ambulatory ELIUD PÑEALOZA Facility:[facility] Start: 09-26-2023 End: 09-26-2023 Patient encounter procedure Eliud Peñaloza APRN.HEAD ATHLETIC TRAINER/STRENGTH COACH Work Phone: [facility] Comment on above: Anxiety with depress ion (Primary Dx) Start: 08-29-2023 ambulatory Eliud slater APRN.HEAD ATHLETIC TRAINER/STRENGTH COACH Work Phone: [facility] Comment on above: Prozac Start: 07-27-2023 Telephone encounter Eliud flynn APRN.HEAD ATHLETIC TRAINER/STRENGTH COACH Work Phone: [facility] Comment on above: Results Start: 07-25-2023 End: 07-25-2023 ambulatory ELIUD PEÑALOZA Facility:[facility] Start: 07-11-2023 End: 07-11-2023 ambulatory Eliud Peñaloza COLLEGE INTERN.HEAD ATHLETIC TRAINER/STRENGTH COACH Work Phone: [facility] Comment on above: Next steps Start: 07-11-2023 Telephone encounter Eliud flynn APRN.HEAD ATHLETIC TRAINER/STRENGTH COACH Work Phone: [facility] Comment on above: Results Start: 07-11-2023 End: 07-11-2023 Subsequent hospital visit by physician [facility] Comment on above: Left lower quadrant abdominal pain [R10.32] Start: 07-11-2023 End: 07-11-2023 Subsequent hospital visit by physician Xr [facility] Work Phone: Radiology Comment on above: Left lower quadrant abdominal pain [R10.32] Start: 07-11-2023 End: 07-11-2023 Patient encounter procedure Eliud Peñaloza APRN.HEAD ATHLETIC TRAINER/STRENGTH COACH Work Phone: [facility] Comment on above: Left lower quadrant abdominal pain (Primary Dx); Nausea and vomiting, unspecified vomiting type Start: 07-06-2023 Telephone encounter Eliud flynn APRN.HEAD ATHLETIC TRAINER/STRENGTH COACH Work Phone: [facility] Comment on above: Patient Update Start: 07-06-2023 End: 07-06-2023 Emergency department patient visit [facility] Work Phone: Start: 06-30-2023 Telephone encounter Eliud flynn APRN.HEAD ATHLETIC TRAINER/STRENGTH COACH Work Phone: [facility] Comment on above: Results Start: 06-26-2023 ambulatory Eliud slater APRN.HEAD ATHLETIC TRAINER/STRENGTH COACH Work Phone: [facility] Comment on above: Symptoms Start: 06-26-2023 Telephone encounter Eliud flynn APRN.HEAD ATHLETIC TRAINER/STRENGTH COACH Work Phone: [facility] Comment on above: Question and request for records Start: 06-26-2023 End: 06-26-2023 Patient encounter procedure Danielle Donato MD Work Phone: Endocrinology Comment on above: Thyroid antibody pos itive Start: 06-22-2023 Telephone encounter Eliud flynn APRN.HEAD ATHLETIC TRAINER/STRENGTH COACH Work Phone: [facility] Comment on above: Results Start: 06-20-2023 End: 06-20-2023 Patient encounter procedure Eliud Peñaloza APRN.HEAD ATHLETIC TRAINER/STRENGTH COACH Work Phone: [facility] Comment on above: Fatigue, unspecified type (Primary Dx); Iron deficiency anemia, unspecified iron deficiency anemia type; Dizziness; Abnormal cardiac valve; Encounter for lipid screening for cardiovascular disease; Screening for diabetes mellitus Start: 06-19-2023 Telephone encounter Eliud flynn APRN.HEAD ATHLETIC TRAINER/STRENGTH COACH Work Phone: [facility] Comment on above: Dizziness Start: 06-14-2023 ambulatory Priscila Funescalf MARY.HEAD ATHLETIC TRAINER/STRENGTH COACH Work Phone: OB/Gynecology Comment on above: Period symptoms Start: 03-31-2023 Telephone encounter [facility] Comment on above: EMG; Appointment Start: 03-01-2023 End: 03-02-[address] FARIDEH NORTH DO Facility:[facility] Start: 03-01-2023 End: 03-01-[address] FARIDEH NORTH DO [facility] Start: 06-29-2021 End: 06-29-[address] FARIDEH NORTH DO [facility] Start: 06-04-2021 End: 06-04-[address] FARIDEH NORTH DO [facility] Procedures Date Procedure Procedure Detail Performing Clinician Start: 01-13-2025 Beta-hemolytic Streptococcus culture Eliud Peñaloza WELT BEATER-C Work Phone: Start: 11-20-2024 Serologic test for syphilis Eliud julio WELT BEATER-C Work Phone: Start: 07-12-2024 Urine culture Eliud Peñaloza WELT BEATER-C Work Phone: Start: 07-12-2024 Hepatitis C antibody measurement Suresh Peñaloza WELT BEATER-C Work Phone: Comment on above: Reactive: Presumptive evidence of antibo dies to HCV. Follow CDC recommendations for supplemental testing.Non-Reactive: Antibodies to HCV were not detected; does not exclude the possibility of exposure to HCVReactive Results are presumptive evidence of antibodies to HCV. Follow CDC recommendations for supplemental testing.Order confirmation testing: HCV Quant by PCR testing - HCVPCR #[id number] Non Reactive: < 0.8 Equivocal: >/= 0.8 to < 1.0 Reactive: >/= 1.0The CDC requires that a reactive/equivocal HCV antibody result be sent out for confirmation. HCV Quant by PCR testing. Start: 07-12-2024 Procedure Eliud Ezequiel WELT BEATER-C Work Phone: Comment on above: TEST RESULTS [...] more information on interpreting this report, pleasecall [employer] Customer Service at [phone] between thehours of 6:30am to 5:00pm Mize Time Monday throughMonday.REMINDER: To Ensure High-Quality Results on All Samples- Verify Viral Load is Sufficient Before Ordering.- Draw 3.0 mL Plasma (PPT or EDTA Tube).- Spin Sample Immediately at [id number] x g.- Don't Leave Samples in Centrifuge After Spinning.- Aliquot Plasma from EDTA Tubes (if used).- Freeze Sample Immediately at -20 degrees C.- Give Grain Cleaner And Transfer Operator Only Fully Frozen Samples.This assay is performed [...] was developed and its performance characteristicsdetermined by [employer]. It has not been cleared or approvedby the Food and Drug Administration. [employer] is a subsidiary of [employer] [facility], using the brand [employer]. The results should notbe used as the sole criteria for patient management. Thisdocument contains private and confidential healthinformation protected by state and federal law. If you havereceived this document in error, please call [phone]. TESTING PERFORMED AT [facility]. ORIGINAL REPORT ON FILE IN LAB CONTAINS ADDITIONAL TEST SITE INFORMATION. Start: 07-12-2024 Rubella IgG measurement Eliud Peñaloza NP-C Work Phone: Comment on above: Antibody Result: InterpretationNon-React jayce: Non-ImmuneReactive: ImmuneThe following results were obtained with the [employer] Rubella IgG assay. Results from assays of other manufacturers cannot be used interchangeably. Start: 07-12-2024 Serologic test for syphilis Eliud julio WELT BEATER-C Work Phone: Start: 05-30-2024 Adult depression screening assessment Eliud Peñaloza APRN.HEAD ATHLETIC TRAINER/STRENGTH COACH Work Phone: Start: 07-11-2023 Ct abdomen & pelvis w/contrast material Eliud Peñaloza APRN.HEAD ATHLETIC TRAINER/STRENGTH COACH Work Phone: Start: 07-11-2023 Radiologic exam abdomen 1 view Eliud Peñaloza APRN.HEAD ATHLETIC TRAINER/STRENGTH COACH Work Phone: Start: 04-24-2014 Structure of wisdom tooth (body structure) DR FARIDEH NORTH DO Start: 04-24-2011 Carpal tunnel syndrome (disorder) DR HECTOR NORTH DO Plan of Treatment Date Care Activity Detail Author Start: 01-19-2031 Urine microalbumin profile [facility] Start: 03-21-2026 Pap Testing Pap Testing [facility] Start: 03-21-2026 Screening for malign ant neoplasm of cervix [facility] Start: 05-30-2025 Anxiety Screening Anxiety Screening [facility] Start: 05-30-2025 Covid-19 Vaccine () Covid-19 Vaccine () [facility] Comment on above: Postponed from 12/23 (Declined at this time) Start: 05-30-2025 Depression Screening Depression Scre ening [facility] Start: 03-11-2025 End: 03-11-2025 Patient encounter procedure 03/11/2025 2:40 PM EST Office Visit Family [address] [id number] Eliud Peñaloza APRN.HEAD ATHLETIC TRAINER/STRENGTH COACH [address] [place] [address] Med check [facility] Comment on above: Med check Start: 12-23-2024 Influenza vaccination Influenza Vacc ine (#1) [facility] Start: 12-04-2024 Thyroid stimulating hormone measurement [facility] Start: 11-20-2024 CBC W Auto Different ial panel - Blood [facility] Start: 11-20-2024 Measurement of gluco se 2 hours after glucose challenge for glucose tolerance test [facility] Start: 11-20-2024 Serologic test for syphilis [facility] Start: 11-20-2024 [facility] Start: 10-21-2024 Influenza vaccination Influenza Vacc ine (#1) [facility] Comment on above: Postponed from 12/23 (Declined at this time) Start: 07-04-2024 End: 07-04-2024 Follow-up encounter 07/04/2024 2:40 PM EDT [facility] [address] [id number] Eliud Peñaloza APRN.HEAD ATHLETIC TRAINER/STRENGTH COACH [address] [place] [address] 1 month follow up [facility] Comment on above: 1 month follow up Start: 05-31-2024 End: 05-31-2024 Patient encounter procedure OB/Gynecology Comment on above: annual Med check and physic al Start: 05-30-2024 End: 05-30-2024 Patient encounter procedure 05/30/2024 4:20 PM EST Office Visit [facility] [address] [place] [address] Eliud Peñaloza APRN.HEAD ATHLETIC TRAINER/STRENGTH COACH [address] [place] [address] Med check and physical [facility] Comment on above: Med check and physic al Start: 04-26-2024 End: 07-26-2024 CBC W Auto Differential panel - Blood COMPLETE BLOOD COUNT AND DIFFERENTIAL Lab Routine Iron deficiency anemia, unspecified iron deficiency anemia type Expected: 04/26/2024, Expires: 07/26/2024 [facility] Comment on above: Expected: 04/26/2024 , Expires: 07/26/2024 Start: 04-26-2024 End: 07-26-2024 Comprehensive metabolic 2000 panel - Serum or Plasma COMPREHENSIVE METABOLIC PANEL Lab Routine Screening for diabetes mellitus Expected: 04/26/2024, Expires: 07/26/2024 [facility] Comment on above: Expected: 04/26/2024 , Expires: 07/26/2024 Start: 04-26-2024 End: 07-26-2024 Ferritin [Mass/volume] in Serum or Plasma FERRITIN Lab Routine Iron deficiency anemia, unspecified iron deficiency anemia type Expected: 04/26/2024, Expires: 07/26/2024 [facility] Comment on above: Expected: 04/26/2024 , Expires: 07/26/2024 Start: 04-26-2024 End: 07-26-2024 Hemoglobin A1c in Blood HEMOGLOBIN A1C Lab Routine Screening for diabetes mellitus Expected: 04/26/2024, Expires: 07/26/2024 [facility] Comment on above: Expected: 04/26/2024 , Expires: 07/26/2024 Start: 04-26-2024 End: 07-26-2024 Iron and Iron binding capacity panel - Serum or Plasma IRON AND TIBC Lab Routine Iron deficiency anemia, unspecified iron deficiency anemia type Expected: 04/26/2024, Expires: 07/26/2024 [facility] Work Phone: Comment on above: Expected: 04/26/2024 , Expires: 07/26/2024 Start: 04-26-2024 End: 07-26-2024 LIPID PANEL, NONFASTING LIPID PANEL, NONFASTING Lab Routine Encounter for lipid screening for cardiovascular disease Expected: 04/26/2024, Expires: 07/26/2024 [facility] Comment on above: Expected: 04/26/2024 , Expires: 07/26/2024 Start: 04-26-2024 End: 07-26-2024 THYROID PEROXIDASE ANTIBODY THYROID PEROXIDASE 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/2024, Expires: 07/26/2024 [facility] Comment on above: Expected: 04/26/2024 , Expires: 07/26/2024 Start: 04-26-2024 End: 07-26-2024 Thyrotropin [Units/volume] in Serum or Plasma THYROID STIMULATING HORMONE 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/2024, Expires: 07/26/2024 [facility] Comment on above: Expected: 04/26/2024 , Expires: 07/26/2024 Start: 04-26-2024 End: 07-26-2024 Thyroxine (T4) free [Mass/volume] in Serum or Plasma T4 FREE/FREE THYROXINE 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/2024, Expires: 07/26/2024 [facility] Comment on above: Expected: 04/26/2024 , Expires: 07/26/2024 Start: 04-26-2024 End: 07-26-2024 Triiodothyronine (T3) [Mass/volume] in Serum or Plasma T3 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/2024, Expires: 07/26/2024 [facility] Comment on above: Expected: 04/26/2024 , Expires: 07/26/2024 Start: 04-26-2024 End: 04-26-2024 Patient encounter procedure OB/Gynecology Comment on above: annual Follow up on depress ion/anxiety meds Start: 03-29-2024 End: 03-29-2024 Patient encounter procedure 03/29/2024 3:30 PM EST Office Visit OB/Gynecology [address] [place] [address] Priscila Cobian APRN.HEAD ATHLETIC TRAINER/STRENGTH COACH [address] [place] [address] annual OB/Gynecology Comment on above: annual Start: 03-26-2024 End: 03-26-2024 ambulatory 03/26/2024 12:00 PM EST [facility] [address] [place] [address] Eliud Peñaloza APRN.HEAD ATHLETIC TRAINER/STRENGTH COACH [address] [place] [address] Anxiety/depression check in and meds Family [facility] [place] Comment on above: Anxiety/depression c heck in and meds Start: 03-22-2024 End: 03-22-2024 Patient encounter procedure 03/22/2024 2:30 PM EST Office Visit OB/Gynecology [address] [place] [address] Priscila Cobian APRN.HEAD ATHLETIC TRAINER/STRENGTH COACH [address] [place] [address] annual OB/Gynecology Comment on above: annual Start: 01-11-2024 End: 01-11-2024 Follow-up encounter 01/11/2024 2:40 PM EDT [facility] [place] [address] [place] [address] Eliud Peñaloza APRN.HEAD ATHLETIC TRAINER/STRENGTH COACH [address] [facility], [place] [id number] Follow up on mental health/medications [facility] [place] Comment on above: Follow up on mental health/medications Start: 12-24-2023 Covid-19 Vaccine ( season) Covid-19 Vaccine () [facility] Start: 12-24-2023 Covid-19 Vaccine () Covid-19 Vaccine () [facility] Start: 12-24-2023 Influenza vaccination Influenza Vacc ine (#1) [facility] Start: 10-30-2023 End: 10-30-2023 Follow-up encounter 10/30/2023 12:00 PM EDT [facility] [address] [place], [place] [id number] Eliud Peñaloza APRN.HEAD ATHLETIC TRAINER/STRENGTH COACH [address] [place] [phone] 2 week follow up Family Medicine [place] Comment on above: 2 week follow up Start: 10-10-2023 End: 10-10-2023 Follow-up encounter 10/10/2023 1:20 PM EDT [facility] [address] [place], [place] [id number] Eliud Peñaloza, MARY.HEAD ATHLETIC TRAINER/STRENGTH COACH [address] [place], [place] [id number] 2 week follow up [facility] [place] Comment on above: 2 week follow up Start: 09-26-2023 End: 09-26-2023 Patient encounter procedure 09/26/2023 9:00 AM EDT Office Visit Family Medicine [place] [address] [place], [place] [address] Eliud Peñaloza, COLLEGE INTERN.HEAD ATHLETIC TRAINER/STRENGTH COACH [address] [place], [place] [id number] 3 month follow up Family [facility] [place] Comment on above: 3 month follow up Start: 07-06-2023 [facility] Start: 06-29-2023 End: 09-28-2023 C reactive protein [Mass/volume] in Serum or Plasma [facility] Work Phone: Comment on above: Expected: 06/29/2023 , Expires: 09/28/2023 Start: 06-29-2023 End: 09-28-2023 Nuclear Ab [Presence] in Serum by Immunoassay [facility] Work Phone: Comment on above: Expected: 06/29/2023 , Expires: 09/28/2023 Start: 06-29-2023 End: 09-28-2023 Rheumatoid factor [Units/volume] in Serum or Plasma [facility] Work Phone: Comment on above: Expected: 06/29/2023 , Expires: 09/28/2023 Start: 06-15-2023 End: 09-14-2023 CBC W Auto Differential panel - Blood CBC + DIFF Lab Routine Menorrhagia with regular cycle Expected: 06/15/2023, Expires: 09/14/2023 [facility] Work Phone: Comment on above: Expected: 06/15/2023 , Expires: 09/14/2023 Start: 06-15-2023 End: 09-14-2023 Iron and Iron binding capacity panel - Serum or Plasma IRON + TIBC Lab Routine Menorrhagia with regular cycle Expected: 06/15/2023, Expires: 09/14/2023 [facility] Work Phone: Comment on above: Expected: 06/15/2023 , Expires: 09/14/2023 Start: 04-24-2023 [facility] Start: 12-23-2022 Covid-19 Vaccine (2022- season) Covid-19 Vaccine ( season) [facility] Start: 04-24-2022 Depression Assessment Depression Ass essment [facility] Start: 07-09-2014 Hepatitis B Vaccine (1 of 3 - 19+ 3-dose series) Hepatitis B Vaccine (1 of 3 - 19+ 3-dose series) [facility] Start: 07-09-2013 Anxiety Screening Anxiety Screening [facility] Start: 07-09-2013 Depression Screening Depression Scre ening [facility] Start: 07-09-2013 Hepatitis C Screening Hepatitis C Sc parveen [facility] Start: 07-09-2013 Hepatitis C screening Hepatitis C Nd parveen [facility] Start: 07-09-2013 HIV Screening HIV Screening [facility] Start: 07-09-2013 HIV screening HIV Screening [facility] Start: 1995 Hepatitis B Vaccine (1 of 3 - 3-dose series) Hepatitis B Vaccine (1 of 3 - 3-dose series) [facility] CBC W Auto Different ial panel - Blood [facility] End: 08-09-2024 CT Abdomen and Pelvis W contrast IV CT ABD/PEL W IVCON Radiology STAT Left lower quadrant abdominal pain 1 Occurrences starting 07/11/2023 until 08/09/2024 [facility] Work Phone: Comment on above: 1 Occurrences starti ng 07/11/2023 until 08/09/2024 CT Abdomen and Pelvi s W contrast IV CT ABD/PEL W IVCON Radiology STAT Left lower quadrant abdominal pain 07/11/2023 1:14 PM EDT [facility] Work Phone: ECG COMPLETE ECG COMPLETE ECG Routine Dizziness Ordered: 06/20/2023 [facility] Work Phone: Comment on above: Ordered: 06/20/2023 End: 06-20-2024 Echocardiography ECHO Cardiology Routine Abnormal cardiac valve 1 Occurrences starting 06/20/2023 until 06/20/2024 [facility] Work Phone: Comment on above: 1 Occurrences starti ng 06/20/2023 until 06/20/2024 Erythrocyte mean corpuscular volume determination [facility] Hematocrit [Volume Fraction] of Blood [facility] Hemoglobin [Mass/vol ume] in Blood [facility] Leukocytes [#/volume ] in Blood [facility] Liquid based cervica l cytology screening [facility] Mean corpuscular hemoglobin concentration determination [facility] Mean corpuscular hemoglobin determination [facility] Measurement of gluco se 2 hours after glucose challenge for glucose tolerance test [facility] Neutrophil count [facility] Neutrophil percent differential count [facility] Patient Education ED Abdominal P ain Unkn Cause Fem ED Irritable Bowel Syndrome [facility] Work Phone: Patient referral [facility] Work Phone: Platelets [#/volume] in Blood [facility] Procedure [facility] Red blood cell count [facility] Red cell distributio n width determination [facility] Serologic test for syphilis [facility] Immunizations Immunization Date Immunization Notes Care Provider [facility] 12-04-2024 tetanus toxoid, reduced diphtheria toxoid, and acellular pertussis vaccine, adsorbed Eliud [facility] Work Phone: [facility] 02-02-2023 influenza virus vaccine, unspecified formulation Neurology Provider [facility] 02-14-2022 influenza virus vaccine, unspecified formulation DR FARIDEH NORTH DO [facility] 02-14-2022 influenza, injectabl e, quadrivalent, preservative free [facility] 01-19-2021 influenza virus vaccine, unspecified formulation DR FARIDEH NORTH DO [facility] 01-19-2021 influenza, injectabl e, quadrivalent, preservative free [facility] 01-19-2021 tetanus toxoid, reduced diphtheria toxoid, and acellular pertussis vaccine, adsorbed; Translations: [Boostrix (Tdap)] DR FARIDEH NORTH DO [facility] 05-25-2020 SARS-CoV-2 (COVID-19 ) mRNA-[address] FARIDEH NORTH DO [facility] 04-27-2020 SARS-CoV-2 (COVID-19 ) mRNA-12[address] FARIDEH NORTH DO [facility] Comment on above: Result Comment: 2020: TPV15 02-13-2020 influenza, injectabl e, quadrivalent, preservative free; Translations: [Fluarix PF Quadrivalent ] DR FARIDEH NORTH DO [facility] Payers Date Payer Category Payer Self-pay [id number] 2024 Unknown [id number] 2024 Private Health Insurance [id number] 2023 Unknown ANTHEM BLUE CARD PPO OOS [id number] 2023-Present [phone] [address] [place] [address] PPO [id number] 2023 Unknown [id number] 2023 Unknown [id number] 2023 Private Health Insurance [id number] 2022 Private Health Insurance [id number]. [id number] 2022 Private Health Insurance [id number] 1995 Unknown [id number] 2.16.840.1.846125.3.579.2. 627 1995 Unknown [id number] 2.16.840.1.537411.3.579.2. 479 1995 Unknown [id number] 2.16.840.1.221920.3.579.2. 479 1995 Unknown [id number] 2.16.840.1.657158.3.579.2. 479 1995 Unknown [id number] 2.16.840.1.575242.3.579.2. 479 1995 Unknown [id number] .840.1.419608.3.579.2. 479 1995 Unknown [id number] .840.1.692960.3.579.2. 479 Unknown TIFFANIE [id number] Unknown [id number] .840.1.969919.3.579.2. 462 Unknown [id number] .840.1.296382.3.579.2. 462 Unknown [id number] .840.1.309968.3.579.2. 462 Unknown [id number] .840.1.608723.3.579.2. 462 Unknown [id number] .840.1.900439.3.579.2. 462 Unknown [id number] .840.1.433696.3.579.2. 462 Unknown [id number] .840.1.411720.3.579.2. 462 Unknown [id number] .840.1.760127.3.579.2. 462 Unknown [id number] .840.1.832051.3.579.2. 462 Unknown [id number] .840.1.297024.3.579.2. 462 Unknown [id number] .840.1.152864.3.579.2. 462 Unknown [id number] .840.1.177360.3.579.2. 462 Unknown [id number] .840.1.278487.3.579.2. 462 Unknown [id number] 2.840.1.036028.3.579.2. 462 Unknown [id number] .840.1.054669.3.579.2. 462 Unknown [id number] 2.16.840.1.634149.3.579.2. 462 Unknown [id number] 2.16.840.1.842326.3.579.2. 462 Unknown [id number] 2.16.840.1.165689.3.579.2. 462 Unknown [id number] 2.16.840.1.265143.3.579.2. 462 Unknown [id number] 2.16.840.1.443833.3.579.2. 462 Unknown [id number] 2.16.840.1.857625.3.579.2. 462 Unknown [id number] 2.16.840.1.519032.3.579.2. 462 Unknown [id number] 2.16.840.1.716117.3.579.2. 462 Social History Date Type Detail Facility Start: 12-11-2019 End: 06-21-2024 Never smoked tobacco (finding) [facility] Start: 1995 Sex Assigned At Female A [facility] Start: 03-21-2023 Tobacco use and exposure Smoke less tobacco non-user [facility] Start: 03-21-2023 End: 06-26-2023 Alcohol intake Current drinker of alcohol (finding) [facility] Start: 03-21-2023 End: 06-18-2023 History of Social function [facility] Start: 03-21-2023 End: 06-18-2023 Tobacco use panel [facility] Start: 07-29-2018 National Score (1-10 0), lower number is lower risk 58 [facility] Start: 02-06-2023 Alcohol Comment [facility] a [facility] Start: 1995 Sex Assigned At Not on file [facility] Has the [employer], [employer], or [employer] threatened to shut off services in your home in past 12Mo No [facility] Do you belong to any clubs or organizations such as scientologist groups, unions, fraternal or athletic groups, or school groups? Yes [facility] Are you now , , , , never or living with a partner? [facility] How often to you hav e a drink containing alcohol? Never [facility] Do you feel stress - tense, restless, nervous, or anxious, or unable to sleep at night because your mind is troubled all the time - these days [OSQ] Rather much [facility] (I/We) worried wheth er (my/our) food would run out before (I/we) got money to buy more. Never true [facility] Start: 07-06-2023 [facility] smoked [facility] Do you feel stress - tense, restless, nervous, or anxious, or unable to sleep at night because your mind is troubled all the time - these days [OSQ] To some extent [facility] Start: 07-18-2024 End: 08-01-2024 Sex Female (finding) [facility] Medical Equipment Procedure Code Equipment Code Equipment [...] 0 07/05/19 9:50 AM EDT User, Joslyn [facility] 07-04-2024 Within the last year , have you been humiliated or emotionally abused in other ways by your partner or ex-partner? No 07/04/2024 9:50 AM EDT User, Mychart [place] 07-04-2024 Within the last year , have you been afraid of your partner or ex-partner? No 07/04/2024 9:50 AM EDT User, [employer] [place] 07-04-2024 Within the last year , have you been raped or forced to have any kind of sexual activity by your partner or ex-partner? No 07/04/2024 9:50 AM EDT User, Mychart No [facility] 07-04-2024 Within the last year , have you been kicked, hit, slapped, or otherwise physically hurt by your partner or ex-partner? No 07/04/2024 9:50 AM EDT User, Joslyn No [facility] 07-04-2024 How often to you hav e a drink containing alcohol? Never 07/04/2024 9:50 AM EDT User, Erniehart Never [facility] 07-04-2024 Functional status Patient does n ot drink 07/04/2024 9:50 AM EDT User, Joslyn Patient does not drink [facility] 07-04-2024 How often do you hav e 6 or more drinks on 1 occasion? Never 07/04/2024 9:50 AM EDT User, Jimmyt Never [facility] Clinical Notes 03-31-2023 to 01-13-2025 Note Date & Type Note Facility 01-13-[address] [facility] 01-13-2025 Progress note Note Date/Time January 13, 2025 3:28pm [facility] [address], [address] [place] [address] OFFICE VISIT Date of Service: 01/13/25 MR#: [id number] Acct: [id number] Name: PATTIE BALDERAS Rep #: [id number] : 1995 Provider: Dr. Cabrera Jernigan MD Age/Sex: 29/F [place] [facility] Status: Signed Intake Vital Signs 11/20/24 08:47 01/01/25 09:52 01/13/25 14:59 Height 5 ft 4 in 5 ft 4 in 5 ft 4 in Weight: 177 lb 6 oz 180 lb BMI 30.4 30.9 BP 126/80 H 126/80 H Intake Visit Reasons: 36 WK OB Call Center Professional Required: No Is patient in pain?: No [...] exploratory laparotomy Hx of colonoscopy with polypectomy [place] 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 Work Phone: 1(914) 220-323309-16-2025 Telephone encounter Note* Telephone Encounter - Laura [...] Shin LPN January 07, 2025 3:42 PM [facility]09-16-2025 Miscellaneous Notes* Telephone Encounter - Laura Shin [...] 07, 2025 3:42 PM documented in this [facility]-2025 Progress [facility] [address], [address] [place] [address] OFFICE VISIT Date of Service: 01/01/25 MR#: [id number] Acct: [id number] Name: PATTIE BALDERAS MATEO Rep #: [id number] : 1995 Provider: LITO Montalvo Age/Sex: 29/F [place] [facility] Status: Signed Intake Vital Signs 11/06/24 10:59 12/18/24 09:42 01/01/25 09:52 Height 5 ft 4 in 5 ft 4 in 5 ft 4 in Weight: 177 lb 6 oz BMI 30.4 BP 126/80 H Intake Visit Reasons: 35wk ob Chief Complaint: 35wk OB Call Center Professional Required: No Is patient in pain?: No [...] exploratory laparotomy Hx of colonoscopy with polypectomy [place] 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08-29-2025 Telephone encounter Note* Telephone Encounter - Daja Matos MA - 12/20/2024 3:57 PM EDT Pt scheduled for a med check on 03/11/25. Daja Matos MA [facility]08-29-2025 Miscellaneous Notes* Telephone Encounter - Daja Matos MA - 12/20/2024 3:57 PM EDT Pt scheduled for a med check on 03/11/25. Daja Matos MA * Telephone Encounter - Daja Matos MA - 12/18/2024 12:55 PM EDT [employer] message sent to pt notifying her to schedule an appt via [employer] or by contacting office and speaking with Bowling Alley Operator. Daja Matos MA * Telephone Encounter - Eliud Peñaloza [...] 17, 2024 1:51 PM documented in this encounterCh[facility] Telephone encounter Note * Telephone Encounter - Daja Matos MA - 12/18/2024 12:55 PM EDT [employer] message sent to pt notifying her to schedule an appt via [employer] or by contacting office and speaking with Bowling Alley Operator. Daja Matos MA [facility]08-26-2025 Telephone encounter Note* Telephone Encounter - Eliud Peñaloza APRN.CNP - 12/17/2024 2:06 PM EDT Please let patient know she is overdue for an OV. [facility]08-26-2025 Telephone encounter Note* Telephone Encounter - Jose [...] Paz LPN December 17, 2024 1:51 PM [facility]08-13-2025 Progress [facility] [address], [address] [place] [address] OFFICE VISIT Date of Service: 12/04/24 MR#: [id number] Acct: [id number] Name: PATTIE BALDERAS MATEO Rep #: [id number] : 1995 Provider: Dr. Jami Voss DO Age/Sex: 29/F [place] [facility] Status: Signed Intake Vital Signs 11/06/24 10:59 11/20/24 08:47 12/04/24 10:06 12/04/24 10:07 Height 5 ft 4 in 5 ft 4 in 5 ft 4 in 5 ft 4 in Weight: 168 lb BMI 28.8 BP 107/73 Intake Visit Reasons: 30 wk ob Call Center Professional Required: No Is patient in pain?: No [...] exploratory laparotomy Hx of colonoscopy with polypectomy [place] 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 [employer] History 1 Elective abortions Hx Para 0 [...] and Symptoms of Preeclampsia, Feeding No , [employer] Education, Family Medical Leave or Disability Forms and Intimate Partner Violence Results POC Urinalysis 2 Dip (Clinic) Office Urine Glucose Negative Last Edit by Rocio Dominguez on 12/04/24 10: 32 Office Urine Protein Negative Last Edit by Rocio Dominguez on 12/04/24 10: 32 Immunizations Adacel(Tdap Adolesn/Adult)(PF) 2 Lf-(2.5-5-3-5)-5 Lf/0.5 mL IM syringe Performing Provider: Elke Voss DO Performing Location: [facility] Administered by: Rocio Dominguez on 12/04/24 10:21 Dose Route Admin Location Dispensed Lot Number Expiration Date NDC Copper Plate Lithographer 0.5 mL IM Left Deltoid 0.5 mL [id number] 12/22/26 15084-681-51 [employer] VIS Given Date VIS Provided [...] Status: Acute Comment: Echo by Ped Card [id number] (3) Circumvallate placenta: Status: Acute Qualifiers: Trimester: [...] Cosigner Signature: Date (if applicable) CC: ~ [facility]07-16-2025 [facility] [address] [place] [address], [facility] [address] [place] [address] OFFICE VISIT Date of Service: 11/06/24 MR#: [id number] Acct: [id number] Name: PATTIE BALDERAS MATEO Rep #: [id number] : 1995 Provider: Dr. Cabrera Jernigan MD Age/Sex: 29/F [place] [facility] [place]: Signed Intake Vital Signs 08/06/24 08:50 09/03/24 09:28 09/30/24 15:34 11/06/24 10:59 Height 5 ft 4 in 5 ft 4 in 5 ft 4 in 5 ft 4 in Weight: 161 lb 6 oz BMI 27.6 BP 114/74 Intake Visit Reasons: 26wk ob Call Center Professional Required: No Is patient in pain?: No [...] exploratory laparotomy Hx of colonoscopy with polypectomy [place] 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06-09-2025 Evaluation note* Diagnosis Onset Date [...] December 18 9:40am Anxiety and depression acute [facility] 2024 9:40am Circumvallate placenta acute 2024 [...] of high-risk acute January 13, 2025 2:46pm [facility] Work Phone: 1(525) 966-250706-09-2025 Evaluation note* Diagnosis Onset Date Resolution Status [...] November 20 8:33am Anxiety and depression acute [facility] 2024 8:33am Circumvallate placenta acute [facility] 2024 8:33am Endometriosis determined by laparoscopy acute [...] acute anais 2024 10:04am Circumvallate placenta acute [facility] 2024 10:04am Endometriosis determined by laparoscopy [...] Supervision of high-risk acute January 24 1:05pm [facility] Work Phone: 1([phone]) 277-832506-09-2025 Progress [facility] [address] [place] [address], [address] [place] [id number] OFFICE VISIT Date of Service: 09/30/24 MR#: [id number] Acct: [id number] Name: PATTIE BALDERAS Rep #: [id number] : 1995 Provider: LITO Montalvo Age/Sex: 29/F [place] [facility] Status: Signed Intake Vital Signs 08/06/24 08:50 09/03/24 09:28 09/30/24 15:34 Height 5 ft 4 in 5 ft 4 in 5 ft 4 in Weight: 158 lb 2 oz BMI 27.1 BP 114/77 Intake Visit Reasons: 21wk ob Call Center Professional Required: No Is patient in pain?: No [...] exploratory laparotomy Hx of colonoscopy with polypectomy [place] 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06-09-2025 Progress note Author Debra Montalvo [facility] Note Date/Time September 30, 2024 3:57p [facility] [address] [place] [address], [address] [place] [address] OFFICE VISIT Date of Service: 09/30/24 MR#: [id number] Acct: [id number] Name: PATTIE BALDERAS MATEO Rep #: [id number] : 1995 Provider: LITO Montalvo Age/Sex: 29/F [place] [facility] [place]: Signed Intake Vital Signs 08/06/24 08:50 09/03/24 09:28 09/30/24 15:34 Height 5 ft 4 in 5 ft 4 in 5 ft 4 in Weight: 158 lb 2 oz BMI 27.1 BP 114/77 Intake Visit Reasons: 21wk ob Call Center Professional Required: No Is patient in pain?: No [...] exploratory laparotomy Hx of colonoscopy with polypectomy [place] 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 09/30/24 1557 <Electronically signed by Debra roberts CNM> Date _ Debra Montalvo CNM Cosigner Signature: Date (if applicable) CC: ~ [facility] Work Phone: 1(453) 202-712305-13-2025 Evaluation note* Diagnosis Onset Date Resolution Status [...] Supervision of high-risk acute December 04 10:04am [facility] Work Phone: 1([phone]) 417-335505-13-2025 Evaluation note* Diagnosis Onset Date Resolution Status [...] Supervision of high-risk acute December 18 9:40am [facility] Work Phone: 1([phone]) 503-413905-13-2025 Evaluation note* Diagnosis Onset Date Resolution Status [...] 2024 10:04am Circumvallate placenta acute [facility] 2024 10:04am Endometriosis determined by laparoscopy [...] December 18 9:40am Anxiety and depression acute [facility] 2024 9:40am Circumvallate placenta acute [facility] 2024 9:40am Endometriosis determined by laparoscopy [...] of high-risk acute January 01, 2025 9:41am [facility] Work Phone: 1([phone]) 995-656804-15-2025 Evaluation note* Diagnosis Onset Date Resolution Status [...] of high-risk acute November 20, 2024 8:33am [facility] Work Phone: 1([phone]) 134-359304-15-2025 Evaluation note* Diagnosis Onset Date Resolution Status [...] Supervision of high-risk acute December 04 10:04am [facility] Work Phone: 1([phone]) [phone] Evaluation note* Diagnosis Onset Date Resolution Status [...] of high-risk acute November 20, 2024 8:33am [facility] Work Phone: 1([phone]) 616-759403-21-2025 Evaluation note* Diagnosis Onset Date Resolution Status Admit Date Adopted acute July 12 8:47am Anxiety and depression acute [facility] 2024 8:47am Endometriosis determined by laparoscopy acute [...] of high-risk acute July 12, 2024 8:47am [facility] Work Phone: 1([phone]) 878-672603-21-2025 Evaluation note* Diagnosis Onset Date Resolution Status Admit Date Adopted acute July 12 8:47am Anxiety and depression acute [facility] 2024 8:47am Endometriosis determined by laparoscopy acute [...] of high-risk acute July 24, 2024 8:49am [facility] Work Phone: 1(248) 506-148703-21-2025 Evaluation note* Diagnosis Onset Date Resolution Status [...] high-risk acute September 03, 2024 9 :26am [facility] Work Phone: [phone]) 791-959803-21-2025 Evaluation note* Diagnosis Onset Date Resolution Status [...] high-risk acute September 30, 2024 3 :30pm [facility] Work Phone: 1(371) 398-669103-21-2025 Evaluation note* Diagnosis Onset Date Resolution Status Admit Date Adopted acute July 12 8:47am Anxiety and depression acute [facility]2024 8:47am Endometriosis determined by laparoscopy acute [...] of high-risk acute November 06, 2024 10:56am [facility] Work Phone: 1([phone]) 396-779703-13-2025 NoteHNO ID: [id number] Author: ELIUD PEÑALOZA APRN.HEAD ATHLETIC TRAINER/STRENGTH COACH Service: ? Author Type: Nurse Practitioner Type: Progress Notes Filed: 07/04/2024 14:50 Note Text: VIRTUAL VISIT PROGRESS NOTE This is a virtual visit using TermScout Zoom Video Visit. It required patient-provider interaction for the medical decision making as documented below. I have communicated my name and active licensure. The patient's identity and physical location were verified at the time of this visit. Either the patient or their legal guest relations representative has been informed of the risks [...] . 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 HISTORY REVIEWED (electronic chart updated): PAST MEDICAL [...] which included preparing to see the patient, [id number] patient care, completing clinical documentation, obtaining and/or reviewing separately obtained history, performing a medically appropriate examination, counseling and educating the patient/family/caregiver, ordering medications, tests, or procedures, and communicating results to the patient/family/caregiver Eliud Peñaloza APRN.[facility]03-13-2025 History of Present illness Narrative* Eliud Peñaloza APRN.FABRIZIO - 07/04/2024 2:37 PM EDT VIRTUAL VISIT PROGRESS NOTE This is a virtual visit using Wave Systemsom Video Visit. It required patient- provider interaction for the medical decision making as documented below. I have communicated my name and active licensure. The patient's identity and physical location wereverified at the time of this visit. Either the patient or their legal guest relations representative has been informed of the risks [...] . 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 HISTORY REVIEWED (electronic chart updated): PAST MEDICAL [...] which included preparing to see the patient, [id number]-an-snky patient care, completing clinical documentation, obtaining and/or reviewing separately obtained history, performing a medically appropriate examination, counseling and educating the pat ient/family/caregiver, ordering medications, tests, or procedures, and communicating results to thepatient/family/caregiver Eliud Peñaloza APRN.FABRIZIO documented in this encounterCh[facility]-2025 NoteHNO ID: [id number] Author: ELIUD PEÑALOZA APRN.CNP Service: ? Author [...] Abs Lymph 1.00 - 4.00 k/uL 2.00 [place]% % 6.7 Abs [place] <0.87 k/uL 0.53 Eosin% % 3.7 Abs [...] 114 VLDL Cholesterol, Nonfast (more content not included)...[facility]02-06-2025 History of Present illness Narrative* Eliud Peñaloza APRN.HEAD ATHLETIC TRAINER/STRENGTH COACH - 05/30/2024 2:16 PM EST Chief Complaint [...] Abs Lymph 1.00 - 4.00 k/uL 2.00 [place]% % 6.7 Abs [place] <0.87 k/uL 0.53 Eosin% % 3.7 Abs [...] have reviewed the Advanced Practice Registered Nurse (COLLEGE INTERN) student's documentation and verified the findings in the note as written. Any additions or changes are noted in bold/italics. Eliud Peñaloza APRN.FABRIZIO documented in this encounterChillicothe [facility]01-27-2025 Telephone encounter Note * Telephone Encounter - [...] Pierson LPN May 20, 2024 10:35 AM [facility]01-27-2025 Miscellaneous Notes* Telephone Encounter - Destiny Pierson [...] 20, 2024 10:35 AM documented in this encounterChillicothe [facility]01-03-2025 NoteHNO ID: [id number] Author: ELIUD PEÑALOZA APRN.HEAD ATHLETIC TRAINER/STRENGTH COACH Service: ? Author Type: Nurse Practitioner Type: Progress Notes Filed: 04/26/2024 13:40 Note Text: VIRTUAL VISIT PROGRESS NOTE This is a virtual visit using Wave [employer] Video Visit. It required patient-provider interaction for the medical decision making as documented below. I have communicated my name and active licensure. The patient's identity and physical location were verified at the time of this visit. Either the patient or their legal guest relations representative has been informed of the risks [...] which included preparing to see the patient, uhho-ln-zbea patient care, completing clinical documentation, obtaining and/or reviewing separately obtained history, performing a medically appropriate examination, counseling and educating the patient/family/caregiver, ordering medications, tests, or procedures, and communicating results to the patient/family/caregiver Eliud Peñaloza APRN.[facility]01-03-2025 History of Present illness Narrative* Eliud Peñaloza APRN.FABRIZIO - 04/26/2024 1:28 PM EST VIRTUAL VISIT PROGRESS NOTE This is a virtual visit using Wave [employer] Video Visit. It required patient- provider interaction for the medical decision making as documented below. I have communicated my name and active licensure. The patient's identity and physical location wereverified at the time of this visit. Either the patient or their legal guest relations representative has been informed of the risks [...] which included preparing to see the patient, dgob-by-pwoe patient care, completing clinical documentation, obtaining and/or reviewing separately obtained history, performing a medically appropriate examination, counseling and educating the pat ient/family/caregiver, ordering medications, tests, or procedures, and communicating results to thepatient/family/caregiver Eliud Peñaloza APRN.HEAD ATHLETIC TRAINER/STRENGTH COACH documented in this encounterChillicothe [facility] Center12-03-2024 NoteHNO ID: [id number] Author: ELIUD PEÑALOZA APRN.FABRIZIO Service: ? Author Type: Nurse Practitioner Type: Progress Notes Filed: 03/26/2024 12:08 Note Text: VIRTUAL VISIT PROGRESS NOTE This is a virtual visit using Wave [employer] Video Visit. It required patient-provider interaction for the medical decision making as documented below. I have communicated my name and active licensure. The patient's identity and physical location were verified at the time of this visit. Either the patient or their legal guest relations representative has been informed of the risks [...] - FLUOXETINE 20 MG CAPSULE Eliud Peñaloza APRN.HEAD ATHLETIC TRAINER/STRENGTH COACH I spent a total of 14 minutes on the date of the service which included preparing to see the patient, cwok-gj-hejt patient care, completing clinical documentation, obtaining and/or reviewing separately obtained history, performing a medically appropriate examination, counseling and educating the patient/family/caregiver, ordering medications, tests, or procedures, and communicating results to the patient/family/caregiver Eliud Peñaloza APRN.[facility] History of Present illness Narrative* Eliud Peñaloza APRN.HEAD ATHLETIC TRAINER/STRENGTH COACH - 03/26/2024 11:57 AM EST VIRTUAL VISIT PROGRESS NOTE This is a virtual visit using Term[employer] Zoom Video Visit. It required patient- provider interaction for the medical decision making as documented below. I have communicated my name and active licensure. The patient's identity and physical location wereverified at the time of this visit. Either the patient or their legal guest relations representative has been informed of the risks [...] which included preparing to see the patient, rdai-zd-swqu patient care, completing clinical documentation, obtaining and/or reviewing separately obtained history, performing a medically appropriate examination, counseling and educating the pat ient/family/caregiver, ordering medications, tests, or procedures, and communicating results to thepatient/family/caregiver Eliud Peñaloza APRN.CNP documented in this encounterChillicothe [facility]11-06-2024 NoteHNO ID: [id number] Author: ELIUD PEÑALOZA APRN.CNP Service: ? Author Type: Nurse Practitioner Type: Progress Notes Filed: 02/28/2024 14:33 Note Text: VIRTUAL VISIT PROGRESS NOTE This is a virtual visit using Wave [employer] Video Visit. It required patient-provider interaction for the medical decision making as documented below. I have communicated my name and active licensure. The patient's identity and physical location were verified at the time of this visit. Either the patient or their legal guest relations representative has been informed of the risks [...] which included preparing to see the patient, qrkr-ll-orxe patient care, completing clinical documentation, obtaining and/or reviewing separately obtained history, performing a medically appropriate examination, counseling and educating the patient/family/caregiver, ordering medications, tests, or procedures, and communicating results to the patient/family/caregiver Eliud Peñaloza APRN.[facility] History of Present illness Narrative* Eliud Peñaloza APRN.FABRIZIO - 02/28/2024 2:26 PM EST VIRTUAL VISIT PROGRESS NOTE This is a virtual visit using TermScout Zoom Video Visit. It required patient- provider interaction for the medical decision making as documented below. I have communicated my name and active licensure. The patient's identity and physical location wereverified at the time of this visit. Either the patient or their legal guest relations representative has been informed of the risks [...] which included preparing to see the patient, hsbk-cw-xxgt patient care, completing clinical documentation, obtaining and/or reviewing separately obtained history, performing a medically appropriate examination, counseling and educating the pat ient/family/caregiver, ordering medications, tests, or procedures, and communicating results to thepatient/family/caregiver Eliud Peñaloza APRN.FABRIZIO documented in this encounterChillicothe [facility]09-23-2024 NoteHNO ID: [id number] Author: ELIUD PEÑALOZA APRN.FABRIZIO Service: ? Author Type: Nurse Practitioner Type: Progress Notes Filed: 01/15/2024 15:30 Note Text: VIRTUAL VISIT PROGRESS NOTE This is a virtual visit using Wave [employer] Video Visit. It required patient-provider interaction for the medical decision making as documented below. I have communicated my name and active licensure. The patient's identity and physical location were verified at the time of this visit. Either the patient or their legal guest relations representative has been informed of the risks [...] which included preparing to see the patient, shsu-cd-mcbw patient care, completing clinical documentation, obtaining and/or reviewing separately obtained history, performing a medically appropriate examination, counseling and educating the patient/family/caregiver, ordering medications, tests, or procedures, communicating results to the patient/family/caregiver, and care coordination (not separately reported) Eliud Peñaloza APRN.[facility]09-23-2024 History of Present illness Narrative* Eliud Peñaloza APRN.[facility] - 01/15/2024 3:18 PM EDT VIRTUAL VISIT PROGRESS NOTE This is a virtual visit using Open[employer]hart Zoom Video Visit. It required patient- provider interaction for the medical decision making as documented below. I have communicated my name and active licensure. The patient's identity and physical location wereverified at the time of this visit. Either the patient or their legal guest relations representative has been informed of the risks [...] which included preparing to see the patient, gsud-hn-mbyh patient care, completing clinical documentation, obtaining and/or reviewing separately obtained history, performing a medically appropriate examination, counseling and educating the pat ient/family/caregiver, ordering medications, tests, or procedures, communicating results to the patient/family/caregiver, and care coordination (not separately reported) Eliud Peñaloza APRN.FABRIZIO documented in this encounterChillicothe [facility] Center08-23-2024 NoteHNO ID: [id number] Author: ELIUD PEÑALOZA APRN.CNP Service: ? Author Type: Nurse Practitioner Type: Progress Notes Filed: 12/15/2023 12:17 Note Text: VIRTUAL VISIT PROGRESS NOTE This is a virtual visit using Wave [employer] Video Visit. It required patient-provider interaction for the medical decision making as documented below. I have communicated my name and active licensure. The patient's identity and physical location were verified at the time of this visit. Either the patient or their legal guest relations representative has been informed of the risks [...] which included preparing to see the patient, uhey-nw-jlci patient care, completing clinical documentation, obtaining and/or reviewing separately obtained history, performing a medically appropriate examination, counseling and educating the patient/family/caregiver, ordering medications, tests, or procedures, communicating results to the patient/family/caregiver, and care coordination (not separately reported) Eliud Peñaloza APRN.[facility]08-23-2024 History of Present illness Narrative* Eliud Peñaloza APRN.HEAD ATHLETIC TRAINER/STRENGTH COACH - 12/15/2023 12:07 PM EDT VIRTUAL VISIT PROGRESS NOTE This is a virtual visit using [employer] Zoom Video Visit. It required patient- provider interaction for the medical decision making as documented below. I have communicated my name and active licensure. The patient's identity and physical location wereverified at the time of this visit. Either the patient or their legal guest relations representative has been informed of the risks [...] which included preparing to see the patient, pvwh-qi-jzkf patient care, completing clinical documentation, obtaining and/or reviewing separately obtained history, performing a medically appropriate examination, counseling and educating the pat ient/family/caregiver, ordering medications, tests, or procedures, communicating results to the patient/family/caregiver, and care coordination (not separately reported) Eliud Peñaloza APRN.FABRIZIO documented in this encounterChillicothe [facility]07-22-2024 Telephone encounter Note * Telephone Encounter - Daja Matos MA - 11/13/2023 10:24 AM EDT See pt message. Daja Matos MA [facility]07-22-2024 Miscellaneous Notes* Telephone Encounter - Daja Matos MA - 11/13/2023 10:24 AM EDT See pt message. Daja Matos MA * Telephone Encounter - Lilia Tan MA - 11/10/2023 10:30 AM EDT See mychart message. Lilia Tan MA documented in this encounterChillicothe [facility]07-19-2024 Telephone encounter Note * Telephone Encounter - Lilia Tan MA - 11/10/2023 10:30 AM EDT See mychart message. Lilia Tan MA [facility]07-08-2024 NoteHNO ID: [id number] Author: ELIUD PEÑALOZA APRN.HEAD ATHLETIC TRAINER/STRENGTH COACH Service: ? Author Type: Nurse Practitioner Type: Progress Notes Filed: 10/30/2023 12:00 Note Text: VIRTUAL VISIT PROGRESS NOTE This is a virtual visit using Term[employer] Zoom Video Visit. It required patient-provider interaction for the medical decision making as documented below. I have communicated my name and active licensure. The patient's identity and physical location were verified at the time of this visit. Either the patient or their legal guest relations representative has been informed of the risks [...] which included preparing to see the patient, vnpu-yi-zqib patient care, completing clinical documentation, obtaining and/or reviewing separately obtained history, performing a medically appropriate examination, counseling and educating the patient/family/caregiver, ordering medications, tests, or procedures, communicating results to the patient/family/caregiver, and care coordination (not separately reported) Eliud Pe[facility]N.[facility] [facility]07-08-2024 History of Present illness Narrative* Eliud Peñaloza APRN.[facility] - 10/30/2023 11:50 AM EDT VIRTUAL VISIT PROGRESS NOTE This is a virtual visit using TermScout Zoom Video Visit. It required patient- provider interaction for the medical decision making as documented below. I have communicated my name and active licensure. The patient's identity and physical location wereverified at the time of this visit. Either the patient or their legal guest relations representative has been informed of the risks [...] which included preparing to see the patient, [id number] patient care, completing clinical documentation, obtaining and/or reviewing separately obtained history, performing a medically appropriate examination, counseling and educating the pat ient/family/caregiver, ordering medications, tests, or procedures, communicating results to the patient/family/caregiver, and care coordination (not separately reported) Eliud Peñaloza APRN.FABRIZIO documented in this encounterCh[facility]06[facility] Telephone encounter Note * Telephone Encounter - Lilia Tan MA - 10/13/2023 10:15 AM EDT See pt OLXhart message. Lilia Tan MA [facility]06-21-2024 Miscellaneous Notes* Telephone Encounter - Lilia Tan MA - 10/13/2023 10:15 AM EDT See pt mychart message. Lilia Tan MA * Telephone Encounter - Daja Matos MA - 10/06/2023 8:27 AM EDT Please review pt message. Do you want pt to r/s her appt and when do you want her to f/u, 4 weeks? Daja Matos MA documented in this encounterCh[facility]ic[facility]06-14-2024 Telephone encounter Note * Telephone Encounter - Daja Matos MA - 10/06/2023 8:27 AM EDT Please review pt message. Do you want pt to r/s her appt and when do you want her to f/u, 4 weeks? Daja Matos MA [facility]06-04-2024 NoteHNO ID: [id number] Author: ELIUD PEÑALOZA APRN.HEAD ATHLETIC TRAINER/STRENGTH COACH Service: ? Author Type: Nurse Practitioner Type: [...] - FLUOXETINE 10 MG CAPSULE Eliud Peñaloza [facility] History of Present illness Narrative* Eliud Peñaloza APRN.HEAD ATHLETIC TRAINER/STRENGTH COACH - 09/26/2023 8:50 AM EDT Chief Complaint [...] - FLUOXETINE 10 MG CAPSULE Eliud Peñaloza APRN.HEAD ATHLETIC TRAINER/STRENGTH COACH documented in this encounterChillicothe [facility]05-07-2024 Telephone encounter Note * Telephone Encounter - [...] Please advise. Thank you. Eliz Vuong MA. [facility]05-07-2024 Miscellaneous Notes* Telephone Encounter - Eliz Vuong [...] you. Eliz Vuong MA. documented in this encounterChillicothe [facility] Center04-04-2024 Miscellaneous Notes* Telephone Encounter - Kenroy Marshall [...] their echo is normal. documented in this [facility]03-19-2024 Miscellaneous Notes* Telephone Encounter - Lilia Tan MA - 07/11/2023 3:40 PM EDT See TheGrid message. Lilia Tan MA documented in this [facility]03-19-2024 Miscellaneous Notes* Telephone Encounter - Lilia Tan MA - 07/11/2023 3:24 PM EDT Pt notified of results via TheGrid. Lilia Tan Ma * Telephone Encounter - Eliud Peñaloza APRN.CNP - 07/11/2023 3:19 PM EDT Please let patient know their CT is normal. documented in this [facility]03-19-2024 Miscellaneous Notes* Allied Health - Rama [...] PATIENT PRESENTS WITH AN IMPLANTABLE OR ATTACHED TELESALES ADVISOR: No ALLERGIES: Reviewed and unchanged CONTRAST ALLERGY: [...] 2023 TIME: 2:30 PM documented in this encounterChillicothe [facility]03-19-2024 Miscellaneous Notes* Telephone Encounter - Lilia Tan MA - 07/11/2023 9:47 AM EDT Pt notified of results via FamilyAppt. Lilia Tan Ma * Telephone Encounter - Eliud Peñaloza APRN.CNP - 07/11/2023 9:37 AM EDT Please let patient know their xray is normal. documented in this encounterChillicothe [facility] Center03-19-2024 History of Present illness Narrative* Roma Cantu [...] PATIENT PRESENTS WITH AN IMPLANTABLE OR ATTACHED TELESALES ADVISOR: No RADIOLOGY DEPARTMENT: General X-ray: Exam(s) Completed: Abdomen X-Ray: Abdomen PERIPHERAL IV DATA: Not applicable SIGNED BY: RT Bethel(R) July 11, 2023 8:49 AM documented in this encounterChillicothe Va [facility] Center03-19-2024 NoteHNO ID: [id number] Author: ROMA CANTU RT(Brody) Service: Radiology Author [...] PATIENT PRESENTS WITH AN IMPLANTABLE OR ATTACHED TELESALES ADVISOR: No RADIOLOGY DEPARTMENT: General X-ray: Exam(s) Completed: Abdomen X-Ray: Abdomen PERIPHERAL IV DATA: Not applicable SIGNED BY: RT Bethel(R) July 11, 2023 8:49 [facility]03-19-2024 NoteHNO ID: [id number] Author: ELIUD PEÑALOZA APRN.HEAD ATHLETIC TRAINER/STRENGTH COACH Service: ? Author Type: Nurse Practitioner Type: [...] XR ABDOMEN 1V SUPINE E Aravind [employer] Student I have personally seen and examined the patient and performed the medical-decision making components. I have reviewed the Advanced Practice Registered Nurse (COLLEGE INTERN) student's documentation and verified the findings in the note as written. Any additions or changes are noted in bold/italics. Eliud Peñaloza APRN.[facility]03-19-2024 History of Present illness Narrative* Eliud Peñaloza, MARY.HEAD ATHLETIC TRAINER/STRENGTH COACH - 07/11/2023 8:02 AM EDT Chief Complaint [...] XR ABDOMEN 1V SUPINE E Aravind [employer] W[employer] Student I have personally seen and examined the patient and performed the medical- decision making components. I have reviewed the Advanced Practice Registered Nurse (COLLEGE INTERN) student's documentation and verified the findings in the note as written. Any additions or changes are noted in bold/italics. Eliud Peñaloza APRN.HEAD ATHLETIC TRAINER/STRENGTH COACH documented in this encounterChillicothe Va Medical Center03-14-2024 Miscellaneous Notes* Telephone Encounter - Elke Cantu - 07/06/2023 8:26 AM EDT Pt called to cancel appointment and Echo. [facility] is currently in [facility] ER fordehydration and nausea and vomiting. documented in this encounterChillicothe [facility] Center03-08-2024 Miscellaneous Notes* Telephone Encounter - Kayla Mandel MA - 06/30/2023 12:58 PM EST Pt active on OLXharTruLeaf- message sent Kayla Mandel MA * Telephone Encounter - Eliud Peñaloza APRN.CNP - 06/30/2023 12:27 PM EST Please let patient know their labs are normal. documented in this encounterChillicothe Va Medical Center03-04-2024 Miscellaneous Notes* Telephone Encounter - Sultana Garcia RN - 06/26/2023 2:45 PM EST Adamaris nurse from Dr. Reddy's office ([facility]) calling in stating pt has been calling them frequently asking for a colonoscopy. Pt was last seen by their office in September 2021.Pt had a colonoscopy with them in June 2021 which was normal with a hyperplastic polyp so she doesnot need one per their office. Per a TermScout msg this morning, pt states she contacted [...] to be faxed to their office at [phone]. Also as per note above, Adamaris said [...] PCP provider to review. documented in this encounterChillicothe Va Medical Center03-04-2024 Miscellaneous Notes* Telephone Encounter - Daja Matos Ma - 06/26/2023 9:10 AM EST See pt message. Notified her that Provider is out of office until Monday. Daja Matos Ma documented in this encounterChillicothe [facility] Center03-04-2024 History of Present illness Narrative* Danielle Donato MD - 06/26/2023 8:16 AM EST [facility] Initial Clinic Visit Note CONSULTING PHYSICIAN: Eliud Peñaloza APRN. HEAD ATHLETIC TRAINER/STRENGTH COACH My final recommendations will be communicated back [...] Moderate Danielle Donato MD Endocrinology Associate Staff [facility] Endocrinology and Metabolism [place] [phone] documented in this encounterChillicothe Va Medical Center02-27-2024 History of Present illness Narrative* Eliud Peñaloza APRN.[facility] - 06/20/2023 8:37 AM EST Chief Complaint Patient presents with: [facility] Care HPI Pattie Balderas is a [...] No history of dysuria, frequency or incontinence RADIO/TV TECHNICIAN: Negative for abnormal vaginal bleeding, abnormal vaginal [...] Z13.1 - HGB A1C E Aravind [employer] Student I have personally seen and examined the patient and performed the medical- decision making components. I have reviewed the Advanced Practice Registered Nurse (COLLEGE INTERN) student's documentation and verified the findings in the note as written. Any additions or changes are noted in bold/italics. Eliud Peñaloza APRN.FABRIZIO documented in this encounterChillicothe Va Medical Center02-26-2024 Miscellaneous Notes* Telephone Encounter - Jose Carlos [...] Carlos De Paz LPN documented in this encounterChillicothe Va Medical Center12-08-2023 Miscellaneous Notes* Telephone Encounter - Eufemia Talley - 03/31/2023 4:07 PM EST Spoke with the patient, and she declined a sooner EMG appointment. documented in this encounterChillicothe Va Medical CenterEvaluation + Plan note Future Appointments Appointment Date:06/18/2021 09:30:00 AM Scheduled Provider:FARIDEH NORTH DO Location:[facility] Appointment Type: OV Future Scheduled Tests Radiology* MRI Brain w/ + w/o Contrast 08/14/20 [facility] Evaluation + Plan note Future Appointments Appointment Date:07/29/2021 08:00:00 AM Scheduled Provider:FARIDEH NORTH DO Location:[facility] Appointment Type:PC OV Future Scheduled Tests Radiology* MRI Brain w/ + w/o Contrast 08/14/20 [facility] Evaluation + Plan note Future Appointments Appointment Date:05/02/2023 10:30:00 AM Scheduled Provider:FARIDEH NORTH DO Location:[facility] Appointment Type:[facility] Evaluation note* Diagnosis Menorrhagia with regular cycle- Primary Excessive or frequent menstruation [facility]* Diagnosis Fatigue, unspecified type- Primary Iron deficiency anemia, unspecified iron deficiency anemia type Dizziness Dizziness and giddiness Abnormal cardiac valve Encounter for lipid screening for cardiovascular disease Screening for lipoid disorders Screening for diabetes mellitus [facility]* Diagnosis Thyroid antibody positive- Primary documented [facility]* Diagnosis Thyroid antibody positive [facility]* Diagnosis Edgar's disease- Primary Chronic lymphocytic thyroiditis documented in this encounter [facility] noteNo assessment information availableWTrumbull Memorial Hospital Work Phone: Evaluation note* Diagnosis Left lower quadrant abdominal pain- Primary Nausea and vomiting, unspecified vomiting type [facility]* Diagnosis Change in bowel habit- Primary documented in this encounter [facility]* Diagnosis Left lower quadrant abdominal pain [facility]* Diagnosis Anxiety with depression- Primary documented in this encounter [facility]* Diagnosis Anxiety with depression- Primary [facility]* Diagnosis Anxiety with depression documented in this encounter [facility]* Diagnosis Anxiety with depression documented in this encounter [facility]* Diagnosis Anxiety with depression [facility]* Diagnosis Left lower quadrant abdominal pain Nausea and vomiting, unspecified vomiting type documented [facility]* Diagnosis Anxiety with depression- Primary [facility]* Diagnosis Anxiety with depression- Primary documented in this encounter [facility]* Diagnosis Anxiety with depression documented in this encounter [facility]* Diagnosis Edgar's disease- Primary Chronic lymphocytic thyroiditis Anxiety with depression Screening for diabetes mellitus Thyroid antibody positive Iron deficiency anemia, unspecified iron deficiency anemia type Encounter for lipid screening for cardiovascular disease Screening for lipoid disorders documented [facility]* Diagnosis Anxiety with depression [facility] Wellness examination- Primary Encounter for screening examination for other mental health and behavioral disorders Anxiety with depression Edgar's disease Chronic lymphocytic thyroiditis Iron deficiency anemia, unspecified iron deficiency anemia type Screening for diabetes mellitus Encounter for lipid screening for cardiovascular disease Screening for lipoid disorders documented [facility]* Diagnosis Anxiety with depression- Primary [facility]* Diagnosis Anxiety with depression [facility]* Diagnosis Anxiety with depression documented in this encounter [facility] course Narrative No data available for this section [facility] Hospital Discharge instructions No data available for this section [facility] Progress note No data available for this section [facility] ProApozykzi note Author Jacki Jernigan [facility] Note Date/Time November 06, 2024 11:3 5am [facility] [address], [address] [place] [address] OFFICE VISIT Date of Service: 11/06/24 MR#: [id number] Acct: [id number] Name: PATTIE BALDERAS MATEO Rep #: [id number] : 1995 Provider: Dr. Cabrera Jernigan MD Age/Sex: 29/F [place] [facility] Status: Signed Intake Vital Signs 08/06/24 08:50 09/03/24 09:28 09/30/24 15:34 11/06/24 10:59 Height 5 ft 4 in 5 ft 4 in 5 ft 4 in 5 ft 4 in Weight: 161 lb 6 oz BMI 27.6 BP 114/74 Intake Visit Reasons: 26wk ob Call Center Professional Required: No Is patient in pain?: No [...] exploratory laparotomy Hx of colonoscopy with polypectomy [place] 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 [employer] History 1 Elective abortions Hx Para 0 [...] and Symptoms of Preeclampsia, Feeding No , [place] and Family Medical Leave or Disability [...] Status: Acute Comment: Echo by Ped Card [id number] (2) Circumvallate placenta: Status: Acute Comment: Growth [...] - Unspecified blood type, Rh negative 11/06/24 1131 <Electronically signed by Jacki fierro MD> Date _ Jacki Jernigan MD Cosigner Signature: Date (if applicable) CC: ~ [facility] Work Phone: Progress note Author Elke Nuñez [facility] Note Date/Time December 04, 2024 10 :41am [facility] [address], [address] [place] [address] OFFICE VISIT Date of Service: 12/04/24 MR#: [id number] Acct: [id number] Name: PATTIE BALDERAS Rep #: [id number] : 1995 Provider: Dr. Jami Voss DO Age/Sex: 29/F [place] [facility] Status: Signed Intake Vital Signs 11/06/24 10:59 11/20/24 08:47 12/04/24 10:06 12/04/24 10:07 Height 5 ft 4 in 5 ft 4 in 5 ft 4 in 5 ft 4 in Weight: 168 lb BMI 28.8 BP 107/73 Intake Visit Reasons: 30 wk ob Call Center Professional Required: No Is patient in pain?: No [...] exploratory laparotomy Hx of colonoscopy with polypectomy [place] 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 [employer] History 1 Elective abortions Hx Para 0 [...] Performing Provider: Elke Voss DO Performing Location: [facility] Administered by: Rocio Dominguez on 12/04/24 10:21 Dose [address] Admin Location Dispensed Lot Number Expiration Date NDC Copper Plate Lithographer 0.5 mL IM Left Deltoid 0.5 mL [id number] 12/22/26 71161-759-89 [employer]OF [employer]-PASTEUR VIS Given Date VIS Provided [...] Status: Acute Comment: Echo by Ped Card [id number] (3) Circumvallate placenta: Status: Acute Qualifiers: Trimester: [...] Ndiaye Signature: Date (if applicable) CC: ~ [facility] Work Phone: Progress note Author Debra Montalvo [facility] Note Date/Time January 01, 2025 10:19am [facility] [address], [address] [place] [address] OFFICE VISIT Date of Service: 01/01/25 MR#: [id number] Acct: [id number] Name: PATTIE BALDERAS Rep #: [id number] : 1995 Provider: LITO Montalvo Age/Sex: 29/F [place] [facility] Status: Signed Intake Vital Signs 11/06/24 10:59 12/18/24 09:42 01/01/25 09:52 Height 5 ft 4 in 5 ft 4 in 5 ft 4 in Weight: 177 lb 6 oz BMI 30.4 BP 126/80 H Intake Visit Reasons: 35wk ob Chief Complaint: 35wk OB Call Center Professional Required: No Is patient in pain?: No [...] exploratory laparotomy Hx of colonoscopy with polypectomy [place] 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 [employer] History 1 Elective abortions Hx Para 0 [...] Status: Acute Comment: Echo by Ped Card [id number] (3) Circumvallate placenta: Status: Acute Qualifiers: Trimester: [...] Cosigner Signature: Date (if applicable) CC: ~ [employer] Work Phone: Reason for referral (narrative)* Outpatient Procedure (Routine) - Authorized Specialty Diagnoses / Procedures Referred By Contac t Referred To Contact [facility] [place] Diagnoses Abnormal cardiac valve Procedures ECHO ECHO TTHRC R-T 2D W/WOM-MODE COMPL SPEC&COLR D Eliud Peñaloza APRN.HEAD ATHLETIC TRAINER/STRENGTH COACH [address] [place] [id number] [facility] [address] [address] Referral ID Status Reason Start Date Expiration Date Visits Requested Visits Authorized [id number] Authorized Auto-Generat ed Referral 06/20/2023 06/19/2024 1 1 * Outpatient Procedure (Routine) - Authorized Specialty Diagnoses / Procedures Referred By Contac t Referred To Contact [facility] Diagnoses Dizziness Procedures ECG COMPLETE ECG ROUTINE ECG W/LEAST 12 LDS W/I&R Eliud Peñaloza APRN.CNP [address] [place] [address] [facility] [address] [address] Referral ID Status Reason Start Date Expiration Date Visits Requested Visits Authorized [id number] Authorized Auto-Generat ed Referral 06/20/2023 06/19/2024 1 1 [facility] for referral (narrative)* Diagnostic Procedure Only (Urgent) - Closed Specialty Diagnoses / Procedures Referred By Contac t Referred To Contact XR IMAGING Diagnoses Left lower quadrant abdominal pain Nausea and vomiting, unspecified vomiting type Procedures XR ABDOMEN 1V SUPINE RADIOLOGIC EXAM ABDOMEN 1 VIEW Eliud Peñaloza APRN.CNP [address] [place] [address] [place] [address] Referral ID Status Reason Start Date Expiration Date V isits Requested Visits Authorized [id number] Closed Auto-Generate d Referral 07/11/2023 08/09/2024 1 1 * MRI/CT (Urgent) - Closed Specialty Diagnoses / Procedures Referred By Contac t Referred To Contact CT IMAGING Diagnoses Left lower quadrant abdominal pain Procedures CT ABD/PEL W IVCON CT ABD & PELVIS W/CONTRAST Eliud Peñaloza APRN.HEAD ATHLETIC TRAINER/STRENGTH COACH [address] [place] [address] [address] Referral ID Status Reason Start Date Expiration Date V isits Requested Visits Authorized [id number] Closed Auto-Generat ed Referral Patient Cleared - Admin/Chairm an/Director advise to proceed or did not respond 07/11/2023 07/11/2023 2 2 [facility] for referral (narrative)* Diagnostic Procedure Only (Urgent) - Closed Specialty Diagnoses / Procedures Referred By Contac t Referred To Contact XR IMAGING Diagnoses Left lower quadrant abdominal pain Nausea and vomiting, unspecified vomiting type Procedures XR ABDOMEN 1V SUPINE RADIOLOGIC EXAM ABDOMEN 1 VIEW Eliud Peñaloza APRN.CNP [address] [place] [address] [place] [address] Referral ID Status Reason Start Date Expiration Date V isits Requested Visits Authorized [id number] Closed Auto-Generate d Referral 07/11/2023 08/09/2024 1 1 [facility] ([facility])No reason for referral information availableWTrumbull Memorial Hospital Work Phone: Reason for visit Narrative* Diagnostic Procedure Only (Urgent) - Closed Specialty Diagnoses / Procedures Referred By Ilia t Referred To Contact XR IMAGING Diagnoses Left lower quadrant abdominal pain Nausea and vomiting, unspecified vomiting type Procedures XR ABDOMEN 1V SUPINE RADIOLOGIC EXAM ABDOMEN 1 VIEW Eliud Peñaloza APRN.CNP [address] [place] [address] [place] [address] Referral ID Status Reason Start Date Expiration Date V isits Requested Visits Authorized [id number] Closed Auto-Generate d Referral 07/11/2023 08/09/2024 1 1 [facility] Summary Purpose Family History No Family History Records Found Advance Directives No Advanced Directives Records Found Advance Directive Response Recorded Date/ Time Living Will No July 06, 2023 8:33am Power of Appliance Repairer No July 05 8:33am Reason for Referral Specialty Diagnoses / Procedures Referred By Ilia matthews Referred To Contact CT IMAGING Diagnoses Left lower quadrant abdominal pain Procedures CT ABD/PEL W IVCON CT ABD & PELVIS W/CONTRAST Eliud Peñaloza APRN.CNP [address] [place] [address] [address] Referral ID Status Reason Start Date Expiration Date V isits Requested Visits Authorized [id number] Closed Auto-Generat ed Referral Patient Cleared - Admin/Chairm an/Director advise to proceed or did not respond 07/11/2023 07/11/2023 2 2 Specialty Diagnoses / Procedures Referred By Ilia t Referred To Contact Gastroenterology Diagnoses Change in bowel habit Procedures CONSULT TO GASTROENTEROLOGY Eliud Peñaloza APRN.CNP [address] [place] [address] Friend, Dick Dorman, DO [address] [address] Referral ID Status Reason Start Date Expiration Date Visits Requested Visits Authorized [id number] Ref Not Required PCP Requested Referral 07/11/2023 2024 1 1 Specialty Diagnoses / Procedures Referred By Contac t Referred To Contact Endocrinology Diagnoses Thyroid antibody positive Procedures CONSULT TO ENDOCRINOLOGY OFFICE/OUTPATIENT [facility] 60 MINUTES Eliud Peñaloza, MARY.HEAD ATHLETIC TRAINER/STRENGTH COACH [address] [place] [address] Danielle Donato MD [address] [facility] [place] [address] Referral ID Status Reason Start Date Expiration Date Visits Requested Visits Authorized [id number] Authorized PCP Requested Referral 06/22/2023 06/21/2024 1 [...] 01, 2025 9:41am PCOS (polycystic ovarian syndrome) [facility]2024 9:41am January 01, 2025 9:41am Rh negative status during [facility]2024 9:41am Supervision of high-risk [facility]2024 9:41am Chief Complaint Admit Date 21wk [...] 01, 2025 9:41am PCOS (polycystic ovarian syndrome) [facility]2024 9:41am January 01, 2025 9:41am Rh negative status during Dec 9:41am Supervision of high-risk [facility]2024 9:41am Abnormal glucose affecting [facility] 2024 2:46pm Adopted January 13, 2025 2:46pm [...] 13, 2025 2:46pm PCOS (polycystic ovarian syndrome) [facility] 2024 2:46pm January 13, 2025 2:46pm Rh negative status during [facility]2024 2:46pm Supervision of high-risk [facility] 2024 2:46pm Chief Complaint Admit Date 21wk [...] t 2024 9:40am Abnormal glucose [facility]2024 9:41am Adopted January 01, 2025 9:41am Anxiety and depression January 01 9:41am Circumvallate placenta January 01 9:41am Endometriosis determined by laparoscopy January 01, 2025 9:41am Family history of congenital septal defe ct January 01, 2025 9:41am 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2024 9:41am January 01, 2025 9:41am Rh negative status during Dec [facility]2024 9:41am Supervision of high-risk [facility]2024 9:41am [facility] January 13, 2025 2:46pm Anxiety and depression January 13 2:46pm Circumvallate placenta January 13 2:46pm Endometriosis determined by laparoscopy January 13, 2025 2:46pm Family history of congenital septal defe ct January 13, 2025 2:46pm Edgar's disease January 13, 2025 2:46pm Irritable bowel syndrome with constipati on January 13, 2025 2:46pm Ischemic hepatitis January 13, 2025 2:46pm PCOS (polycystic ovarian syndrome) [facility] 2024 2:46pm January 13, 2025 2:46pm Rh negative status during [facility]2024 2:46pm Supervision of high-risk [facility] 2024 2:46pm Abnormal glucose affecting Oct [email or web address] [...] July 12, 2024 End: July 12, 2024 Marketing Planning Manager Relationship Specialty Start Date End Date Jimmy (Ms)Dorie PCP - General 07/29/18 Marketing Planning Manager Relationship Specialty Start Date End Date Jimmy (Ms), Dorie PCP - General 07/29/18 Marketing Planning Manager Relationship Specialty Start Date End Date Eliud Peñaloza APRN.HEAD ATHLETIC TRAINER/STRENGTH COACH [address] [place] [id number] PCP - General Family Medicine 06/20/23 Marketing Planning Manager Relationship Specialty Start Date End Date Eliud Peñaloza APRN.CNP [facility] [place], [place] [address] PCP - General Family Medicine 06/20/23 Marketing Planning Manager Relationship Specialty Start Date End Date Jimmy (Ms)Dorie PCP - General 07/29/18 06/19/23 Eliud Peñaloza, COLLEGE INTERN.HEAD ATHLETIC TRAINER/STRENGTH COACH [address] [place] [address] PCP - General Family Medicine 06/20/23 Marketing Planning Manager Relationship Specialty Start Date End Date Eliud Peñaloza, COLLEGE INTERN.HEAD ATHLETIC TRAINER/STRENGTH COACH [facility] [place] [address] PCP - General Family Medicine 06/20/23 Marketing Planning Manager Relationship Specialty Start Date End Date Eliud Peñaloza COLLEGE INTERN.HEAD ATHLETIC TRAINER/STRENGTH COACH [address] [place] [address], [place] [address] PCP - General Family Medicine 06/20/23 Marketing Planning Manager Relationship Specialty Start Date End Date Eliud Peñaloza COLLEGE INTERN.HEAD ATHLETIC TRAINER/STRENGTH COACH [address] [place] [address], [place] [address] PCP - General Family Medicine 06/20/23 Marketing Planning Manager Relationship Specialty Start Date End Date Eliud Peñaloza COLLEGE INTERN.HEAD ATHLETIC TRAINER/STRENGTH COACH [address] [place] [address], [place] [address] PCP - General Family Medicine 06/20/23 Team Status: Inactive Member Role Status Dates Dr. Mandeep Flynn , DO Emergency Provider Active Eliud Peñaloza , WELT BEATER-C Primary Care Provider Active Marketing Planning Manager Relationship Specialty Start Date End Date Eliud Peñaloza, COLLEGE INTERN.HEAD ATHLETIC TRAINER/STRENGTH COACH [facility] [place] [address] PCP - General Family Medicine 06/20/23 Marketing Planning Manager Relationship Specialty Start Date End Date Eliud Peñaloza, COLLEGE INTERN.HEAD ATHLETIC TRAINER/STRENGTH COACH [facility] [place] [address] PCP - General Family Medicine 06/20/23 Marketing Planning Manager Relationship Specialty Start Date End Date Eliud Peñaloza APRN.HEAD ATHLETIC TRAINER/STRENGTH COACH [address] [place] [id number] PCP - General Family Medicine 06/20/23 Marketing Planning Manager Relationship Specialty Start Date End Date Eliud Peñaloza APRN.HEAD ATHLETIC TRAINER/STRENGTH COACH [address] [place] [id number] PCP - General Family Medicine 06/20/23 Marketing Planning Manager Relationship Specialty Start Date End Date Eliud Peñaloza APRN.HEAD ATHLETIC TRAINER/STRENGTH COACH [address] [place] [id number] PCP - General Family Medicine 06/20/23 Marketing Planning Manager Relationship Specialty Start Date End Date Eliud Peñaloza APRN.HEAD ATHLETIC TRAINER/STRENGTH COACH [address] [place] [id number] PCP - General Family Medicine 06/20/23 Marketing Planning Manager Relationship Specialty Start Date End Date Eliud Peñaloza APRN.HEAD ATHLETIC TRAINER/STRENGTH COACH [address] [place] [id number] PCP - General Family Medicine 06/20/23 Marketing Planning Manager Relationship Specialty Start Date End Date Eliud Peñaloza APRN.HEAD ATHLETIC TRAINER/STRENGTH COACH [address] [place] [id number] PCP - General Family Medicine 06/20/23 Marketing Planning Manager Relationship Specialty Start Date End Date Eliud Peñaloza APRN.HEAD ATHLETIC TRAINER/STRENGTH COACH [address] [place] [id number] PCP - General Family Medicine 06/20/23 Marketing Planning Manager Relationship Specialty Start Date End Date Eliud Peñaloza APRN.HEAD ATHLETIC TRAINER/STRENGTH COACH [address] [place] [phone] PCP - General Family Medicine 06/20/23 Marketing Planning Manager Relationship Specialty Start Date End Date Eliud Peñaloza APRN.HEAD ATHLETIC TRAINER/STRENGTH COACH [address] [place] [id number] PCP - General Family Medicine 06/20/23 Marketing Planning Manager Relationship Specialty Start Date End Date Eliud Peñaloza APRN.HEAD ATHLETIC TRAINER/STRENGTH COACH [facility] [place], [place] [address] PCP - General Family Medicine 06/20/23 Team Status: Inactive Member Role Status Dates Eliud Peñaloza WELT BEATER-C Primary Care Provider Active Start: July 24, [...] Inactive Member Role Status Dates Eliud Peñaloza WELT BEATER-C Primary Care Provider Active Start: August 06, 2024 End: August 06, 2024 Eliud Peñaloza NP-C Referring Provider Active Start: August 06, 2024 End: August 06, 2024 Dr. Elke Voss DO Attending Provider Activ e Start: August 06, 2024 End: August 06, 2024 Team Status: Inactive Member Role Status Dates Eliud Peñaloza WELT BEATER-C Primary Care Provider Active Start: September 03, 2024 End: September 03, 2024 Eliud Peñaloza WELT BEATER-C Referring Provider Active Start: September 03, 2024 End: September 03, 2024 Dr. Jacki Jernigan MD Attending Provider Active Start: September 03, 2024 End: September 03, 2024 Team Status: Inactive Member Role Status Dates Eliud Peñaloza WELT BEATER-C Primary Care Provider Active Start: September 30, 2024 End: September 30, 2024 Eliud Peñaloza WELT BEATER-C Referring Provider Active Start: September 30, 2024 End: September 30, 2024 Debra Montalvo CNM Attending Provider Active S tart: September 30, 2024 End: September 30, 2024 Team Status: Active Member Role/Relationship Status Dates Eliud Peñaloza WELT BEATER-C Primary Care Provider Active Team Status: Inactive Member Role/Relationship Status Dates Eliud Peñaloza WELT BEATER-C Primary Care Provider Active Start: July 12, 2024 End: July 12, 2024 Eliud Peñlaoza WELT BEATER-C Referring Provider Active Start: July 12, 2024 End: July 12, 2024 Debra Montalvo CNM Attending Provider Active S tart: July 12, 2024 End: July 12, 2024 Team Status: Inactive Member Role/Relationship Status Dates Eliud Peñaloza WELT BEATER-C Primary Care Provider Active Start: July 12, 2024 End: July 12, 2024 Debra Montalvo CNM Attending Provider Active S tart: July 12, 2024 End: July 12, 2024 Debra Montalvo CNM Referring Provider Active S tart: July 12, 2024 End: July 12, 2024 Team Status: Inactive Member Role/Relationship Status Dates Eliud Peñaloza WELT BEATER-C Primary Care Provider Active Start: July 24, 2024 End: July 24, 2024 Eliud Peñaloza WELT BEATER-C Referring Provider Active Start: July 24, 2024 End: July 24, 2024 Dr. Jacki Jernigan MD Attending Provider Active Start: July 24, 2024 End: July 24, 2024 Team Status: Inactive Member Role/Relationship Status Dates Eliud Peñaloza WELT BEATER-C Primary Care Provider Active Start: July 29, 2024 End: July 29, 2024 Dr. Jacki Jernigan MD Attending Provider Active Start: July 29, 2024 End: July 29, 2024 Dr. Jacki Jernigan MD Referring Provider Active Start: July 29, 2024 End: July 29, 2024 Team Status: Active Member Role/Relationship Status Dates Eliud Peñaloza , WELT BEATER-C Primary Care Provider Active Start: July 29, 2024 End: July 29, 2024 Dr. Dequan Alejandra MD Attending Provider Active S tart: July 29, 2024 End: July 29, 2024 Dr. Jacki Jernigan MD Referring Provider Active Start: July 29, 2024 End: July 29, 2024 Team Status: Inactive Member Role/Relationship Status Dates Eliud Peñaloza , WELT BEATER-C Primary Care Provider Active Start: August 06, 2024 End: August 06, 2024 Eliud Peñaloza WELT BEATER-C Referring Provider Active Start: August 06, 2024 End: August 06, 2024 Dr. Elke Voss DO Attending Provider Activ e Start: August 06, 2024 End: August 06, 2024 Team Status: Inactive Member Role/Relationship Status Dates Elidu Peñaloza WELT BEATER-C Primary Care Provider Active Start: September 03, 2024 End: September 03, 2024 Eliud Peñaloza WELT BEATER-C Referring Provider Active Start: September 03, 2024 End: September 03, 2024 Dr. Jacki Jernigan MD Attending Provider Active Start: September 03, 2024 End: September 03, 2024 Team Status: Inactive Member Role/Relationship Status Dates Eliud Peñaloza WELT BEATER-C Primary Care Provider Active Start: September 30, 2024 End: September 30, 2024 Eliud Peñaloza WELT BEATER-C Referring Provider Active Start: September 30, 2024 End: September 30, 2024 Debra Montalvo CNM Attending Provider Active S tart: September 30, 2024 End: September 30, 2024 Team Status: Inactive Member Role/Relationship Status Dates Eliud Peñaloza , WELT BEATER-C Primary Care Provider Active Start: November 06, 2024 End: November 06, 2024 Eliud Peñaloza WELT BEATER-C Referring Provider Active Start: November 06, 2024 End: November 06, 2024 Dr. Jacki Jernigan MD Attending Provider Active Start: November 06, 2024 End: November 06, 2024 Marketing Planning Manager Relationship Specialty Start Date End Date Eliud Peñaloza APRN.CNP [address] [place] [address] PCP - General Family Medicine 06/20/23 Team Status: Inactive Member Role/Relationship Status Dates Eliud Peñaloza WELT BEATER-C Primary Care Provider Active Start: July 24, 2024 End: July 24, 2024 Eliud Peñaloza NP-C Referring Provider Active Start: July 24, 2024 End: July 24, 2024 Dr. Jacki Jernigan MD Attending Provider Active Start: July 24, 2024 End: July 24, 2024 Team Status: Inactive Member Role/Relationship Status Dates Eliud Peñaloza WELT BEATER-C Primary Care Provider Active Start: July 29, [...] Inactive Member Role/Relationship Status Dates Eliud Peñaloza WELT BEATER-C Primary Care Provider Active Start: August 06, 2024 End: August 06, 2024 Eliud Peñaloza NP-C Referring Provider Active Start: August 06, 2024 End: August 06, 2024 Dr. Elke Voss DO Attending Provider Activ e Start: August 06, 2024 End: August 06, 2024 Team Status: Inactive Member Role/Relationship Status Dates Eliud Peñaloza WELT BEATER-C Primary Care Provider Active Start: September 03, 2024 End: September 03, 2024 Eliud Knoble , WELT BEATER-C Referring Provider Active Start: September 03, 2024 End: September 03, 2024 Dr. Jacki Jernigan MD Attending Provider Active Start: September 03, 2024 End: September 03, 2024 Team Status: Inactive Member Role/Relationship Status Dates Eliud Peñaloza , WELT BEATER-C Primary Care Provider Active Start: September 30, 2024 End: September 30, 2024 Eliud Peñaloza WELT BEATER-C Referring Provider Active Start: September 30, 2024 End: September 30, 2024 Debra Montalvo CNM Attending Provider Active S tart: September 30, 2024 End: September 30, 2024 Team Status: Inactive Member Role/Relationship Status Dates Eliud Peñaloza , WELT BEATER-C Primary Care Provider Active Start: November 06, 2024 End: November 06, 2024 Eliud Peñaloza , WELT BEATER-C Referring Provider Active Start: November 06, 2024 End: November 06, 2024 Dr. Jacki Jernigan MD Attending Provider Active Start: November 06, 2024 End: November 06, 2024 Team Status: Inactive Member Role/Relationship Status Dates Eliud Peñaloza , WELT BEATER-C Primary Care Provider Active Start: November 20, 2024 End: November 20, 2024 Eliud Peñaloza , WELT BEATER-C Referring Provider Active Start: November 20, 2024 End: November 20, 2024 Sherry Barone NP, WELT BEATER-C Attending Provider Active Start: November 20, 2024 End: November 20, 2024 Team Status: Active Member Role/Relationship Status Dates Eliud Peñaloza , WELT BEATER-C Primary Care Provider Active Start: November 20, 2024 Dr. Jacki Jernigan MD Attending Provider Active Start: November 20, 2024 Team Status: Inactive Member Role/Relationship Status Dates Eliud Peñlaoza , WELT BEATER-C Primary Care Provider Active Start: July 29, 2024 End: July 29, 2024 Dr. Jacki Jernigan MD Attending Provider Active Start: July 29, 2024 End: July 29, 2024 Dr. Jacki Jernigan MD Referring Provider Active Start: July 29, 2024 End: July 29, 2024 Team Status: Active Member Role/Relationship Status Dates Eliud Peñaloza , WELT BEATER-C Primary Care Provider Active Start: July 29, 2024 End: July 29, 2024 Dr. Dequan Alejandra MD Attending Provider Active S tart: July 29, 2024 End: July 29, 2024 Dr. Jacki Jernigan MD Referring Provider Active Start: July 29, 2024 End: July 29, 2024 Team Status: Inactive Member Role/Relationship Status Dates Eliud Peñaloza , WELT BEATER-C Primary Care Provider Active Start: August 06, 2024 End: August 06, 2024 Eliud Peñaloza WELT BEATER-C Referring Provider Active Start: August 06, 2024 End: August 06, 2024 Dr. Elke Voss DO Attending Provider Activ e Start: August 06, 2024 End: August 06, 2024 Team Status: Inactive Member Role/Relationship Status Dates Eliud Peñaloza WELT BEATER-C Primary Care Provider Active Start: September 03, 2024 End: September 03, 2024 Eliud Peñaloza , WELT BEATER-C Referring Provider Active Start: September 03, 2024 End: September 03, 2024 Dr. Jacki Jernigan MD Attending Provider Active Start: September 03, 2024 End: September 03, 2024 Team Status: Inactive Member Role/Relationship Status Dates Eliud Peñaloza , WELT BEATER-C Primary Care Provider Active Start: September 30, 2024 End: September 30, 2024 Eliud Peñaloza WELT BEATER-C Referring Provider Active Start: September 30, 2024 End: September 30, 2024 Debra Montalvo CNM Attending Provider Active S tart: September 30, 2024 End: September 30, 2024 Team Status: Inactive Member Role/Relationship Status Dates Eliud Peñaloza , WELT BEATER-C Primary Care Provider Active Start: November 06, 2024 End: November 06, 2024 Eliud Peñaloza WELT BEATER-C Referring Provider Active Start: November 06, 2024 End: November 06, 2024 Dr. Jacki Jernigan MD Attending Provider Active Start: November 06, 2024 End: November 06, 2024 Team Status: Inactive Member Role/Relationship Status Dates Eliud Peñaloza , WELT BEATER-C Primary Care Provider Active Start: November 20, 2024 End: November 20, 2024 Eliud Peñaloza WELT BEATER-C Referring Provider Active Start: November 20, 2024 End: November 20, 2024 Sherry Barone NP, WELT BEATER-C Attending Provider Active Start: November 20, 2024 End: November 20, 2024 Team Status: Inactive Member Role/Relationship Status Dates Eliud Peñaloza , WELT BEATER-C Primary Care Provider Active Start: November 20, 2024 End: November 20, 2024 Dr. Jacki Jernigan MD Attending Provider Active Start: November 20, 2024 End: November 20, 2024 Team Status: Inactive Member Role/Relationship Status Dates Eliud Peñaloza , WELT BEATER-C Primary Care Provider Active Start: August 06, 2024 End: August 06, 2024 Eliud Peñaloza , WELT BEATER-C Referring Provider Active Start: August 06, 2024 End: August 06, 2024 Dr. Elke Voss DO Attending Provider Activ e Start: August 06, 2024 End: August 06, 2024 Team Status: Inactive Member Role/Relationship Status Dates Eliud Peñaloza , WELT BEATER-C Primary Care Provider Active Start: September 03, 2024 End: September 03, 2024 Eliud Peñaloza WELT BEATER-C Referring Provider Active Start: September 03, 2024 End: September 03, 2024 Dr. Jacki Jernigan MD Attending Provider Active Start: September 03, 2024 End: September 03, 2024 Team Status: Inactive Member Role/Relationship Status Dates Eliud Peñaloza , WELT BEATER-C Primary Care Provider Active Start: September 30, 2024 End: September 30, 2024 Eliud Peñaloza , WELT BEATER-C Referring Provider Active Start: September 30, 2024 End: September 30, 2024 Debra Montalvo CNM Attending Provider Active S tart: September 30, 2024 End: September 30, 2024 Team Status: Inactive Member Role/Relationship Status Dates Elidu Peñaloza , WELT BEATER-C Primary Care Provider Active Start: November 06, 2024 End: November 06, 2024 Eliud Peñaloza , WELT BEATER-C Referring Provider Active Start: November 06, 2024 End: November 06, 2024 Dr. Jacki Jernigan MD Attending Provider Active Start: November 06, 2024 End: November 06, 2024 Team Status: Inactive Member Role/Relationship Status Dates Eliud Peñaloza , WELT BEATER-C Primary Care Provider Active Start: November 20, 2024 End: November 20, 2024 Eliud Peñaloza , WELT BEATER-C Referring Provider Active Start: November 20, 2024 End: November 20, 2024 Sherry Barone NP, WELT BEATER-C Attending Provider Active Start: November 20, 2024 End: November 20, 2024 Team Status: Inactive Member Role/Relationship Status Dates Eliud Peñaloza , WELT BEATER-C Primary Care Provider Active Start: November 20, 2024 End: November 20, 2024 Dr. Jacki Jernigan MD Attending Provider Active Start: November 20, 2024 End: November 20, 2024 Team Status: Inactive Member Role/Relationship Status Dates Eliud Peñaloza , WELT BEATER-C Primary Care Provider Active Start: November 27, 2024 End: November 27, 2024 Dr. Jacki Jernigan MD Attending Provider Active Start: November 27, 2024 End: November 27, 2024 Dr. Jacki Jernigan MD Referring Provider Active Start: November 27, 2024 End: November 27, 2024 Team Status: Inactive Member Role/Relationship Status Dates Eliud Peñaloza , WELT BEATER-C Primary Care Provider Active Start: December 04, 2024 End: December 04, 2024 Eliud Peñaloza WELT BEATER-C Referring Provider Active Start: December 04, 2024 End: December 04, 2024 Dr. Elke Voss DO Attending Provider Activ e Start: December 04, 2024 End: December 04, 2024 Team Status: Active Member Role/Relationship Status Dates Eliud Peñaloza , WELT BEATER-C Primary Care Provider Active Start: December 04, 2024 Dr. Elke Voss DO Attending Provider Activ e Start: December 04, 2024 Dr. Elke Voss DO Referring Provider Activ e Start: December 04, 2024 Team Status: Inactive Member Role/Relationship Status Dates Eliud Peñaloza , WELT BEATER-C Primary Care Provider Active Start: September 03, 2024 End: September 03, 2024 Eliud Peñaloza WELT BEATER-C Referring Provider Active Start: September 03, 2024 End: September 03, 2024 Dr. Jacki Jernigan MD Attending Provider Active Start: September 03, 2024 End: September 03, 2024 Team Status: Inactive Member Role/Relationship Status Dates Eliud Peñaloza , WELT BEATER-C Primary Care Provider Active Start: September 30, 2024 End: September 30, 2024 Eliud Peñaloza , WELT BEATER-C Referring Provider Active Start: September 30, 2024 End: September 30, 2024 Debra Montalvo CNM Attending Provider Active S tart: September 30, 2024 End: September 30, 2024 Team Status: Inactive Member Role/Relationship Status Dates Eliud Peñaloza , WELT BEATER-C Primary Care Provider Active Start: November 06, 2024 End: November 06, 2024 Eliud Peñaloza WELT BEATER-C Referring Provider Active Start: November 06, 2024 End: November 06, 2024 Dr. Jacki Jernigan MD Attending Provider Active Start: November 06, 2024 End: November 06, 2024 Team Status: Inactive Member Role/Relationship Status Dates Eliud Peñaloza , WELT BEATER-C Primary Care Provider Active Start: November 20, 2024 End: November 20, 2024 Eliud Peñaloza , WELT BEATER-C Referring Provider Active Start: November 20, 2024 End: November 20, 2024 Sherry Barone NP, WELT BEATER-C Attending Provider Active Start: November 20, 2024 End: November 20, 2024 Team Status: Inactive Member Role/Relationship Status Dates Eliud Peñaloza , WELT BEATER-C Primary Care Provider Active Start: November 20, 2024 End: November 20, 2024 Dr. Jacki Jernigan MD Attending Provider Active Start: November 20, 2024 End: November 20, 2024 Team Status: Inactive Member Role/Relationship Status Dates Eliud Peñaloza , WELT BEATER-C Primary Care Provider Active Start: November 27, 2024 End: November 27, 2024 Dr. Jacki Jernigan MD Attending Provider Active Start: November 27, 2024 End: November 27, 2024 Dr. Jacki Jernigan MD Referring Provider Active Start: November 27, 2024 End: November 27, 2024 Team Status: Inactive Member Role/Relationship Status Dates Eliud Peñaloza WELT BEATER-C Primary Care Provider Active Start: December 04, 2024 End: December 04, 2024 Eliud Peñaloza , WELT BEATER-C Referring Provider Active Start: December 04, 2024 End: December 04, 2024 Dr. Elke Voss DO Attending Provider Activ e Start: December 04, 2024 End: December 04, 2024 Team Status: Inactive Member Role/Relationship Status Dates Eliud Peñaloza WELT BEATER-C Primary Care Provider Active Start: December 04, 2024 End: December 04, 2024 Dr. Elke Voss , Attending Provider Activ e Start: December 04, 2024 End: December 04, 2024 Dr. Elke Voss , Referring Provider Activ e Start: December 04, 2024 End: December 04, 2024 Team Status: Inactive Member Role/Relationship Status Dates Eliud Peñaloza [employer]C Primary Care Provider Active Start: December 18, 2024 End: December 18, 2024 Eliud Peñaloza [employer]EL[employer]-C Referring Provider Active Start: December 18, 2024 End: December 18, 2024 Sherry Barone NP, [employer] Attending Provider Active Start: December 18, 2024 End: December 18, 2024 Team Status: Inactive Member Role/Relationship Status Dates Eliud Peñaloza [employer]C Primary Care Provider Active Start: January 01, 2025 End: January 01, 2025 Eliud Peñaloza [employer]-C Referring Provider Active Start: January 01, 2025 End: January 01, 2025 Debra Montalvo CNM Attending Provider Active S tart: January 01, 2025 End: January 01, 2025 Team Status: Active Member Role/Relationship Status Dates Eliud Peñaloza [employer]C Primary care physician Active Team Status: Inactive Member Role/Relationship Status Dates Eliud Peñaloza [employer]C Primary care physician Active Start: September 30, 2024 End: September 30, 2024 Eliud Peñaloza [employer]-C Referring Provider Active Start: September 30, 2024 End: September 30, 2024 Debra Montalvo CNM Attending physician Active Start: September 30, 2024 End: September 30, 2024 Team Status: Inactive Member Role/Relationship Status Dates Eliud Peñaloza [employer]-C Primary care physician Active Start: November 06, 2024 End: November 06, 2024 Eliud Peñaloza [employer]C Referring Provider Active Start: November 06, 2024 End: November 06, 2024 Dr. Jacki Jernigan MD Attending physician Active Start: November 06, 2024 End: November 06, 2024 Team Status: Inactive Member Role/Relationship Status Dates Eliud Knoble , [employer]C Primary care physician Active Start: November 20, 2024 End: November 20, 2024 Eliud Peñaloza [employer]-C Referring Provider Active Start: November 20, 2024 End: November 20, 2024 Sherry Barone NP, [employer] Attending physician Active Start: November 20, 2024 End: November 20, 2024 Team Status: Inactive Member Role/Relationship Status Dates Eliud Peñaloza [employer]C Primary care physician Active Start: November 20, 2024 End: November 20, 2024 Dr. Jacki Jernigan MD Attending physician Active Start: November 20, 2024 End: November 20, 2024 Team Status: Inactive Member Role/Relationship Status Dates Eliud Peñaloza [employer]C Primary care physician Active Start: November 27, 2024 End: November 27, 2024 Dr. Jacki Jernigan MD Attending physician Active Start: November 27, 2024 End: November 27, 2024 Dr. Jacki Jernigan MD Referring Provider Active Start: November 27, 2024 End: November 27, 2024 Team Status: Inactive Member Role/Relationship Status Dates Eliud Peñaloza [employer]C Primary care physician Active Start: December 04, 2024 End: December 04, 2024 Eliud Peñaloza [employer]EL[employer] BE[employer]-C Referring Provider Active Start: December 04, 2024 End: December 04, 2024 Dr. Elke Voss DO Attending physician Acti ve Start: December 04, 2024 End: December 04, 2024 Team Status: Inactive Member Role/Relationship Status Dates Eliud Peñaloza [employer]-C Primary care physician Active Start: December 04, 2024 End: December 04, 2024 Dr. Elke Voss DO Attending physician Acti ve Start: December 04, 2024 End: December 04, 2024 Dr. Elke Voss DO Referring Provider Activ e Start: December 04, 2024 End: December 04, 2024 Team Status: Inactive Member Role/Relationship Status Dates Eliud Peñaloza [employer]C Primary care physician Active Start: December 18, 2024 End: December 18, 2024 Eliud Peñaloza [employer]EL[employer] BE[employer]-C Referring Provider Active Start: December 18, 2024 End: December 18, 2024 Sherry Barone NP, [employer]C Attending physician Active Start: December 18, 2024 End: December 18, 2024 Team Status: Inactive Member Role/Relationship Status Dates Eliud Peñaloza [employer]-C Primary care physician Active Start: January 01, 2025 End: January 01, 2025 Eliud Peñaloza , [employer]C Referring Provider Active Start: January 01, 2025 End: January 01, 2025 Debra Montalvo CNM Attending physician Active Start: January 01, 2025 End: January 01, 2025 Team Status: Inactive Member Role/Relationship Status Dates Eliud Peñaloza [employer]C Primary care physician Active Start: January 13, 2025 End: January 13, 2025 Eliud Peñaloza [employer]-C Referring Provider Active Start: January 13, 2025 End: January 13, 2025 Dr. Jacki Jernigan MD Attending physician Active Start: January 13, 2025 End: January 13, 2025 Team Status: Inactive Member Role/Relationship Status Dates Eliud Peñaloza [employer]C Primary care physician Active Start: January 13, 2025 End: January 13, 2025 Dr. Jacki Jernigan MD Attending physician Active Start: January 13, 2025 End: January 13, 2025 Dr. Jacki Jernigan MD Referring Provider Active Start: January 13, 2025 End: January 13, 2025 Team Status: Inactive Member Role/Relationship Status Dates Eliud Peñaloza [employer]-C Primary care physician Active Start: January 24, 2025 End: January 24, 2025 Eliud Peñaloza [employer]-C Referring Provider Active Start: January 24, 2025 End: January 24, 2025 Dr. lEke Voss DO Attending physician Acti ve Start: January 24, 2025 End: January 24, 2025 INFORMATION SOURCE (unrecogn ized section and content) DATE CREATED AUTHOR 03/02/2023 [facility] DATE CREATED AUTHOR AUTHOR'S ORGANIZ ATION 07/12/2023 [facility] DATE CREATED AUTHOR AUTHOR'S ORGANIZ ATION 07/07/2024 [facility] DATE CREATED AUTHOR AUTHOR'S ORGANIZ ATION 01/15/2025 [facility] DATE CREATED AUTHOR AUTHOR'S ORGANIZ ATION 02/06/2025 [facility] Source Comments (unrecognize d section and content) In the event this informatio n is protected by the Federal Confidentiality of Alcohol and Drug Abuse Patient Records regulations: The Federal rules restrict any use of the information to criminally investigate or prosecute any alcohol or drug abuse patient.[facility] the event this information is protected by the Federal Confidentiality of Alcohol and Drug Abuse Patient Records regulations: The Federal rules restrict any use of the information to criminally investigate or prosecute any alcohol or drug abuse patient.[facility] the event this information is protected by the Federal Confidentiality of Alcohol and Drug Abuse Patient Records regulations: The Federal rules restrict any use of the information to criminally investigate or prosecute any alcohol or drug abuse patient.[facility] the event this information is protected by the Federal Confidentiality of Alcohol and Drug Abuse Patient Records regulations: The Federal rules restrict any use of the information to criminally investigate or prosecute any alcohol or drug abuse patient.[facility] the event this information is protected by the Federal Confidentiality of Alcohol and Drug Abuse Patient Records regulations: The Federal rules restrict any use of the information to criminally investigate or prosecute any alcohol or drug abuse patient.[facility] the event this information is protected by the Federal Confidentiality of Alcohol and Drug Abuse Patient Records regulations: The Federal rules restrict any use of the information to criminally investigate or prosecute any alcohol or drug abuse patient.[facility] the event this information is protected by the Federal Confidentiality of Alcohol and Drug Abuse Patient Records regulations: The Federal rules restrict any use of the information to criminally investigate or prosecute any alcohol or drug abuse patient.[facility] Center[facility] the event this information is protected by the Federal Confidentiality of Alcohol and Drug Abuse Patient Records regulations: The Federal rules restrict any use of the information to criminally investigate or prosecute any alcohol or drug abuse patient.[facility] Center[facility] the event this information is protected by the Federal Confidentiality of Alcohol and Drug Abuse Patient Records regulations: The Federal rules restrict any use of the information to criminally investigate or prosecute any alcohol or drug abuse patient.[facility] Center[facility] the event this information is protected by the Federal Confidentiality of Alcohol and Drug Abuse Patient Records regulations: The Federal rules restrict any use of the information to criminally investigate or prosecute any alcohol or drug abuse patient.[facility] CenterIn the event this information is protected by the Federal Confidentiality of Alcohol and Drug Abuse Patient Records regulations: The Federal rules restrict any use of the information to criminally investigate or prosecute any alcohol or drug abuse patient.[facility] CenterIn the event this information is protected by the Federal Confidentiality of Alcohol and Drug Abuse Patient Records regulations: The Federal rules restrict any use of the information to criminally investigate or prosecute any alcohol or drug abuse patient.[facility] CenterIn the event this information is protected by the Federal Confidentiality of Alcohol and Drug Abuse Patient Records regulations: The Federal rules restrict any use of the information to criminally investigate or prosecute any alcohol or drug abuse patient.[facility] CenterIn the event this information is protected by the Federal Confidentiality of Alcohol and Drug Abuse Patient Records regulations: The Federal rules restrict any use of the information to criminally investigate or prosecute any alcohol or drug abuse patient.[facility] CenterIn the event this information is protected by the Federal Confidentiality of Alcohol and Drug Abuse Patient Records regulations: The Federal rules restrict any use of the information to criminally investigate or prosecute any alcohol or drug abuse patient.[facility] CenterIn the event this information is protected by the Federal Confidentiality of Alcohol and Drug Abuse Patient Records regulations: The Federal rules restrict any use of the information to criminally investigate or prosecute any alcohol or drug abuse patient.[facility] CenterIn the event this information is protected by the Federal Confidentiality of Alcohol and Drug Abuse Patient Records regulations: The Federal rules restrict any use of the information to criminally investigate or prosecute any alcohol or drug abuse patient.[facility] CenterIn the event this information is protected by the Federal Confidentiality of Alcohol and Drug Abuse Patient Records regulations: The Federal rules restrict any use of the information to criminally investigate or prosecute any alcohol or drug abuse patient.[facility] CenterIn the event this information is protected by the Federal Confidentiality of Alcohol and Drug Abuse Patient Records regulations: The Federal rules restrict any use of the information to criminally investigate or prosecute any alcohol or drug abuse patient.[facility] CenterIn the event this information is protected by the Federal Confidentiality of Alcohol and Drug Abuse Patient Records regulations: The Federal rules restrict any use of the information to criminally investigate or prosecute any alcohol or drug abuse patient.[facility] CenterIn the event this information is protected by the Federal Confidentiality of Alcohol and Drug Abuse Patient Records regulations: The Federal rules restrict any use of the information to criminally investigate or prosecute any alcohol or drug abuse patient.[facility] CenterIn the event this information is protected by the Federal Confidentiality of Alcohol and Drug Abuse Patient Records regulations: The Federal rules restrict any use of the information to criminally investigate or prosecute any alcohol or drug abuse patient.[facility] CenterIn the event this information is protected by the Federal Confidentiality of Alcohol and Drug Abuse Patient Records regulations: The Federal rules restrict any use of the information to criminally investigate or prosecute any alcohol or drug abuse patient.[facility] CenterIn the event this information is protected by the Federal Confidentiality of Alcohol and Drug Abuse Patient Records regulations: The Federal rules restrict any use of the information to criminally investigate or prosecute any alcohol or drug abuse patient.[facility] CenterIn the event this information is protected by the Federal Confidentiality of Alcohol and Drug Abuse Patient Records regulations: The Federal rules restrict any use of the information to criminally investigate or prosecute any alcohol or drug abuse patient.[facility] CenterIn the event this information is protected by the Federal Confidentiality of Alcohol and Drug Abuse Patient Records regulations: The Federal rules restrict any use of the information to criminally investigate or prosecute any alcohol or drug abuse patient.[facility] CenterIn the event this information is protected by the Federal Confidentiality of Alcohol and Drug Abuse Patient Records regulations: The Federal rules restrict any use of the information to criminally investigate or prosecute any alcohol or drug abuse patient.[facility] CenterIn the event this information is protected by the Federal Confidentiality of Alcohol and Drug Abuse Patient Records regulations: The Federal rules restrict any use of the information to criminally investigate or prosecute any alcohol or drug abuse patient.[facility] CenterIn the event this information is protected by the Federal Confidentiality of Alcohol and Drug Abuse Patient Records regulations: The Federal rules restrict any use of the information to criminally investigate or prosecute any alcohol or drug abuse patient.[facility] CenterIn the event this information is protected by the Federal Confidentiality of Alcohol and Drug Abuse Patient Records regulations: The Federal rules restrict any use of the information to criminally investigate or prosecute any alcohol or drug abuse patient.[facility] CenterIn the event this information is protected by the Federal Confidentiality of Alcohol and Drug Abuse Patient Records regulations: The Federal rules restrict any use of the information to criminally investigate or prosecute any alcohol or drug abuse patient.[facility] CenterIn the event this information is protected by the Federal Confidentiality of Alcohol and Drug Abuse Patient Records regulations: The Federal rules restrict any use of the information to criminally investigate or prosecute any alcohol or drug abuse patient.[facility] CenterIn the event this information is protected by the Federal Confidentiality of Alcohol and Drug Abuse Patient Records regulations: The Federal rules restrict any use of the information to criminally investigate or prosecute any alcohol or drug abuse patient.[facility] CenterIn the event this information is protected by the Federal Confidentiality of Alcohol and Drug Abuse Patient Records regulations: The Federal rules restrict any use of the information to criminally investigate or prosecute any alcohol or drug abuse patient.[facility] CenterIn the event this information is protected by the Federal Confidentiality of Alcohol and Drug Abuse Patient Records regulations: The Federal rules restrict any use of the information to criminally investigate or prosecute any alcohol or drug abuse patient.[facility] Reason for Visit (unrecogniz ed section and content) Reason Comments EMG Appointment Reason Comments Establish Care Reason Comments Results Reason Comments Dizziness Reason Comments Thyroid Problem Labs 06/20/23 Specialty Diagnoses / Procedures Referred By Contac t Referred To Contact Endocrinology Diagnoses Thyroid antibody positive Procedures CONSULT TO ENDOCRINOLOGY OFFICE/OUTPATIENT [facility] 60 MINUTES Eliud Peñaloza APRN.[employer]ER/[employer]ENGTH COACH [address] [place] [address] Danielle Donato MD [address] [place] [address] Referral ID Status Reason Start Date Expiration Date V isits Requested Visits Authorized [id number] Closed PCP Requested Referral 06/22/2023 06/21/2024 1 1 Reason Comments Question and request for records Reason Comments Results Reason Comments Patient Update Reason Comments ER F/U Specialty Diagnoses / Procedures Referred By Contac t Referred To Contact CT IMAGING Diagnoses Left lower quadrant abdominal pain Procedures CT ABD/PEL W IVCON CT ABD & PELVIS W/CONTRAST Eliud Peñaloza APRN.[employer] TRAINER/STRENGTH COACH [address] [place] [address] [facility] [address] [place] [address] Referral ID Status Reason Start Date Expiration Date V isits Requested Visits Authorized [id number] Closed Auto-Generat ed Referral Patient Cleared - [...] BE BASED ON THE PRIMARY CLINICAL RECORDS. [facility]. provides no warranty or guarantee of the accuracy or completeness of information in this document.
[2025-02-06 17:17] LABS: Hematocrit 35.3 % (37-47); Hemoglobin 12.4 g/dL (12.0-15.0); Immature Granulocytes Count 0.120 X10^3/uL (0.0-0.0); Mean Corp Hgb Conc 35.1 g/dL (32-36); Mean Corpuscular Volume 86.9 fL (81-99); Mean Platelet Vol. 12.6 fl (6.2-12.0); NRBC Flagged by Analyzer 0 % (0-5); Platelet Count 138 K/mm3 (150-450); RBC Distribution Width CV 13.9 % (11.6-14.6); RBC Distribution Width SD 44.8 fl (35.1-43.9); Red Blood Count 4.06 M/mm3 (4.2-5.4); White Blood Count 10.5 K/mm3 (4.4-11.0)
[2025-02-06] MEDS: 0.9% Normal Saline Single 100 ML IV.SOLN. INTRA-UTER (17:38)
--- NOTE | 2025-02-06 17:49 | HP.PCM.OB_ITS ---
HPI - General General Date of Admission: 02/06/25 HPI Narrative CARMEN KRAFT, is a 29 y/o @ 40 weeks 0 days who presents to L&D for IOL for gestational hypertension and circumvallate placenta. Bp's on arrival are 150's/90's PIH labs ordered and are currently pending. Maternal Data Information RDAHA Calculator Estimated Delivery Date Method Current WG Current Estimate 02/06/25 LMP (Certain) 40w 0d Other Estimates 02/11/25 Ultrasound #1 39w 2d PFSH [facility] Medical History Ischemic hepatitis Allergic contact dermatitis Transaminitis Intestinal metaplasia of stomach without dysplasia Pyloric ulcer Irritable bowel syndrome with constipation Ovarian cyst Migraine headache Syncope Asthma Home Medications ?Medication ?Instructions ?Recorded ?Last Taken ?Type cetirizine 10 mg capsule (Zyrtec) 10 mg PO DAILY aller gies 10/07/19 02/06/25 History cholecalciferol (vitamin D3) 25 50 mcg PO DAILY supple ment 05/06/21 02/06/25 History mcg (1,000 unit) capsule (Vitamin D3) magnesium 250 mg tablet 250 mg PO DAILY supplement 0 06/18/21 02/05/25 History citalopram 40 mg tablet 40 mg PO DAILY depression 02/06/25 History buspirone 5 mg tablet 5 mg PO TID anxiety 06/21/24 02/06/25 History docosahexaenoic acid 200 mg 200 mg PO DAILY 06/21/24 02/06/25 History capsule ( DHA) ferrous sulfate 325 mg (65 mg 325 mg PO QDAY anemia Unknown History iron) tablet blood sugar diagnostic (Blood #50 ea 01/31/25 Unknown Rx Glucose Test strips) blood-glucose meter #1 ea 01/31/25 Unknown Rx lancets 26 gauge (CareTouch Safety #100 ea 01/31/25 Un known Rx Lancets) Allergy/AdvReac Type Severity Reaction Status Date / Time gluten Allergy GI upset Verified 02/06/25 16:33 milk Allergy GI upset Verified 02/06/25 16:33 tea tree Allergy Hives Verified 02/06/25 16:33 Family History Unknown No problems noted. 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 current occupational exposures/hazards: No pets and animals: Yes pets and animals: dog(s) history of recent travel: Yes ([facility] 2023) out of state: Yes out of country: No sexually active: Yes Smoking Status: Never smoker alcohol intake: current alcohol intake frequency: holidays/special occasions only details: Not while substance use type: does not use diet: gluten free and lactose free well-balanced diet: daily or most days caffeine: No eating out: 1-3 times/week during the past year weight has: increased > 10 lbs what type of physical activity do you participate in: walking, yoga and weight training frequency: 1-2 times per week duration: 15-30 minutes/day fredy/tenriism: Gnosticism seatbelt use: always do you feel safe at home: Yes additional social history: : Mandeep - [employer] for [employer] History 1 Elective abortions Hx Para 0 Spontaneous abortions Hx # Term Pregnancies Ectopic pregnancies Hx # Pregnancies Multiple births # of living children 0 Visit Details Expected Delivery Route/Plan Labor Preferences- CB/BF classes: yes labor support person: Mandeep labor intervention preferences: [] pain management options preferred: limited cut cord/dad catch: no : yes PP control planned: discussed discussed possible routes of delivery and associated risks: [] special requests: [] Plans Covid status: [] Flu vaccine: [] Tdap vaccine: given Rhogam: given 11/20/24 LARC form signed: yes Problem list reviewed and updated with the most current plan of care details and appropriate orders placed. Relevant counseling for the gestational age provided. Continue routine care and follow up unless otherwise noted in visit notes/problem list details OB Flowsheet Initial Weight: 148 lb Date -?-?-?-?-?-?-?-?-?-?-?-?- EGA Weight BP Urine Prot -?-?-?-?-?-?-?-?-?-?-?-?- Glucose FHR FuHt Pres Dilation -?-?-?-?-?-?-?-?-?-?-?-?- Effaced St Visit Note 07/12/24 -?-?-?-?-?-?-?-?-?-?-?-?- 10w 1d 148 lb 8 oz (+8 oz) /72 -?-?-?-?-?-?-?-?-?-?-?-?- 178 -?-?-?-?-?-?-?-?-?-?-?-?- KW- CRL cons wit h date. declines NIPT. KW- CRL cons with date. decl crissy NIPT. Will need MFM anatomy US for FOB hx of heart issue. 07/24/24 -?-?-?-?-?-?-?-?-?-?-?-?- 11w 6d 148 lb 4 oz (+4 oz) 112/72 Trace -?-?-?-?-?-?-?-?-?-?-?-?- Negative 165 -?-?-?-?-?-?-?-?-?-?-?-?- Sm- no vb crampi ng some palpitations no cp sob 08/06/24 -?-?-?-?-?-?-?-?-?-?-?-?- 13w 5d 148 lb 2 oz (+2 oz) 118/74 Negative -?-?-?-?-?-?-?-?-?-?-?-?- Negative 158 -?-?-?-?-?-?-?-?-?-?-?-?- JV- no lof, vagi nal bleeding, or cramping. has antomy scan ordered. nausea is improved. 09/03/24 -?--?-?-?-?-?-?-?-?-?-?-?- 17w 5d 150 lb 2 oz (+2 lb 2 oz) 120/73 Negative -?-?-?-?-?-?-?-?-?-?-?-?- Negative 145 -?-?-?-?-?-?-?-?-?-?-?-?- SM- no vb fabio ng 09/30/24 -?-?-?-?-?-?-?-?-?-?-?-?- 21w 4d 158 lb 2 oz (+10 lb 2 oz) 114/77 Negative -?-?-?-?-?-?-?-?-?-?-?--?- Negative 150 20 -?-?-?-?-?-?-?-?-?-?-?-?- KW- no vb/crampi ng. some fm. reviewed scans. 11/06/24 -?-?-?-?-?-?-?-?-?-?-?-?- 26w 6d 161 lb 6 oz (+13 lb 6 oz) 114/74 Negative -?-?-?-?-?-?-?-?-?-?-?-?- Negative 145 26 -?-?-?-?-?-?-?-?-?-?-?-?- SM- no vb lof go od fm no reuglar ctx 11/20/24 -?-?-?-?-?-?-?-?-?-?-?-?- 28w 6d 165 lb 4 oz (+17 lb 4 oz) 110/70 Negative -?-?-?-?-?-?-?-?-?-?-?-?- Negative 155 29 -?-?-?-?-?-?-?-?-?-?-?-?- MH-No VB, LOF. G ood FM. Larc, rhogam, 28 wk labs pending 12/04/24 -?-?-?-?-?-?-?-?-?-?-?-?- 30w 6d 168 lb (+20 lb) 107/73 Negative -?-?-?-?-?-?-?-?-?-?-?-?- Negative 135 32 -?-?-?-?-?-?-?-?-?-?-?-?- JV- passed the 3 hr gtt. needs tsh today 12/18/24 -?-?-?-?-?-?-?-?-?-?-?-?- 32w 6d 173 lb 5 oz (+25 lb 5 oz) 119/80 Negative -?-?-?-?-?-?-?-?-?-?-?-?- Negative 142 33 -?-?-?-?-?-?-?-?-?-?-?-?- MH-No VB, LOF. G ood FM. Growth US today 01/01/25 -?-?-?-?-?-?-?-?-?-?-?-?- 34w 6d 177 lb 6 oz (+29 lb 6 oz) 126/80 Negative -?-?-?-?-?-?-?-?-?-?-?-?- Negative 135 36 -?-?-?-?-?-?-?-?-?-?-?-?- KW- no vb/lof/ct x. good fm. discussed GBS next visit. 01/13/25 -?-?-?-?-?-?-?-?-?-?-?-?- 36w 4d 180 lb (+32 lb) 126/80 Negative -?-?-?-?-?-?-?-?-?-?-?-?- Negative 150 37 Cephalic -?-?-?-?-?-?-?-?-?-?-?-?- SM- no vb lof go od fm n oreuglar ctx gbs collected 01/24/25 -?-?-?-?-?-?-?-?-?-?-?-?- 38w 1d 183 lb 8 oz (+35 lb 8 oz) 125/81 Negative -?-?-?-?-?-?-?-?-?-?-?-?- Negative 140 3 Cephalic -?-?-?-?-?-?-?-?-?-?-?-?- JV- no lof, vagi nal bleeding or dec fm. declines flu shot. declines pelvic exam. 01/31/25 -?-?-?-?-?-?-?-?-?-?-?-?- 39w 1d 184 lb (+36 lb) 134/84 Negative -?-?-?-?-?-?-?-?-?-?-?-?- Negative 140 40 Cephalic 1 -?-?-?-?-?-?-?-?-?-?-?-?- 50 -3 KW- no vb/ lof/ctx. good fm. plan reviewed. declines vaginal exam today KW- no vb/lof/ctx. good fm. plan reviewed. discussed AC and will start testing blood sugars. Discussed possible IOL at 40 weeks due to size. Will test blood sugars over next week and bring to appt. 02/06/25 -?-?-?-?-?-?-?-?-?-?-?-?- 40w 0d 188 lb (+40 lb) 137/88 Negative -?-?-?-?-?-?-?-?-?-?-?-?- Negative 145 40 1 -?-?-?-?-?-?-?-?-?-?-?-?- 60 -3 JV- first bp 140's/90's. has circumvallete placenta, acog recommends delivery between 37-39 weeks and she is already 40 weeks. sending over to start IOL ROS Constitutional Constitutional: Denies change in weight, fatigue, fever(s), headache(s), poor appetite or weakness Eyes Eyes: Denies blurry vision, change in vision, seeing flashes or spots in vision ENT HEENT: Denies dizziness, headache(s), loss taste/smell or sore throat Cardiovascular Cardiovascular: Denies chest pain, dizziness, dyspnea, irregular heart rhythm, leg edema, palpitations, rapid heart rate or vomiting Respiratory/Chest Respiratory/Chest: Denies chest tightness, cough, dyspnea or breast pain Gastrointestinal Gastrointestinal: Denies abdominal pain, anorexia, constipation, cramping, diarrhea, hemorrhoids, vomiting or weight changes Genitourinary Genitourinary: Denies dysuria, flank pain, genital lesions, genital pain, urinary frequency or urinary urgency Musculoskeletal Musculoskeletal: Denies back pain, difficulty walking, joint pain, limited range of motion, muscle cramps or numbness Integumentary Integumentary: Denies lesions or unusual bruising Neurologic Neurologic: Denies abnormal movements, abnormal speech, dizziness, numbness, seizure-like activity or syncope Psychiatric Psychiatric: Denies anxiety, behavioral changes, change in appetite, change in libido, cognitive impairment, confusion, depression, difficulty concentrating, hallucinations or suicidal thoughts Endocrine Endocrinology: Denies excessive sweating, polydipsia or polyuria Hematologic/Lymphatic Hematologic/Lymphatic: Denies easy bleeding, easy bruising or lymphadenopathy Allergic/Immunologic Allergic/Immunologic: Denies itchy eyes, lip swelling, seasonal rhinorrhea, rhinitis, throat swelling, tongue swelling, eczemia, wheezing or asthma Vital Signs Vital Signs Vital Signs: 02/06/25 16:37 02/06/25 16:37 02/06/25 16:37 Temperature Temperature Source Temporal Pulse Rate 83 Respiratory Rate 16 Blood Pressure BP Systolic BP Diastolic Pulse Ox 02/06/25 16:37 02/06/25 16:37 02/06/25 16:38 Temperature 97.4 F L Temperature Source Pulse Rate Respiratory Rate Blood Pressure 152/87 H BP Systolic 152 BP Diastolic 87 Pulse Ox 97 02/06/25 16:38 Temperature Temperature Source Pulse Rate 82 Respiratory Rate Blood Pressure BP Systolic BP Diastolic Pulse Ox Weight Weight: 187 lb 2 oz Body Mass Index (BMI) 32.1 Physical Exam Const alert, oriented x3, no apparent distress and healthy appearing General Appearance: cooperative; Negative for anxious HEENT normocephalic Face and Sinus: normal facial exam Eyes EOMs intact bilaterally and no scleral icterus General Eye: normal appearance of both eyes Neck full ROM and supple Lymph Lymphatic: no lymphadenopathy noted Resp normal respiratory effort Effort and Inspection: able to speak in complete sentences Cardio regular rate GI soft to palpation and non-tender Inspection: gravid Palpation: soft; Negative for tender OB / External & Speculum: other flores placed in cervix and inflated with 50cc NS. Manual OB Exam: presentation cephalic, dilated 1.5 and effaced Uterus Palpation: Negative for uterus tender Back/Spine no CVA tenderness Extremity normal to inspection, full ROM and no clubbing, cyanosis or edema General Extremity: Negative for calf tenderness or edema Skin Lesions: no lesions Rashes: no rashes Psych mental status grossly normal Labs Labs Labs: Blood Type O NEGATIVE Antibody Screen NEGATIVE Hct, (37-47) 35.3 % L Hgb, (12.0-15.0) 12.4 g/dL Syphilis Total Ab, (Nonreactive) Nonreactive Rubella IgG Antibody, (Nonreactive) REAC Hep Bs Antigen, (Nonreactive) Nonreactive Hepatitis C Antibody, (Nonreactive) Nonreactive Hepatitis C Ab (EIA), (0.0-0.9) <0.1 s/co ratio Chlamydia DNA (AMPARO), (Negative) Negative N.gonorrhoeae DNA (AMPARO), (Negative) Negative HIV 1&2 Antibody, (Nonreactive) Nonreactive Glucose 1 Hr 50 gm, (70-140) 148 mg/dL H Gest Glucose Tolerance mg/dL Miscellaneous Test Assessment & Plan (1) induced hypertension: (2) Abnormal glucose affecting : COMMENT: normal 3 hr GTT (3) Family history of congenital septal defect: COMMENT: Echo by Ped Card [id number] (4) Circumvallate placenta: QUALIFIERS: Trimester: third trimester Qualified Code(s): O43.113 - Circumvallate placenta, third trimester COMMENT: Growth US Q4 weeks @ 28 weeks. 11/20:28w-69% EFW. 63% AC (5) Rh negative status during : QUALIFIERS: Trimester: third trimester Qualified Code(s): O26.893 - Other specified related conditions, third trimester; Z67.91 - Unspecified blood type, Rh negative COMMENT: O-, Rhogam @ 28wks & as needed. given 11/20/24 (6) Supervision of high-risk : QUALIFIERS: Trimester: third trimester Qualified Code(s): O09.93 - Supervision of high risk , unspecified, third trimester COMMENT: PRR, RADHA 02/06/25, boy secret name : Mandeep (has septal defect (7) : QUALIFIERS: Weeks of gestation: 40 weeks Qualified Code(s): Z3A.40 - 40 weeks gestation of COMMENT: Neg GBS Discussed genetic/carrier testing - nl anatomy. 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 Pain management: undecided . GBS negative. Management of any complications: see above I have reviewed the [facility] and made any clinically relevant updates.
[2025-02-06 17:53] LABS: AST(SGOT) 27 U/L (<=31); Uric Acid 4.2 mg/dL (2.6-6.0)
[2025-02-06 17:59] LABS: Alanine Aminotransfer ALT/SGPT 17 U/L (<=34); Estimated Creatinine Clearance 162.03 ml/min (50-250); Syphilis Antibodies Nonreactive (Nonreactive)
[2025-02-06 19:22] LABS: Creatinine, Urine (random) 19.90 mg/dL (28.00-217.00); Protein, Urine (Random) < 6.0 mg/dL (0.0-12.0); Protein:Creat Ratio 196 mg/g CRE (0-200)
[2025-02-06] MEDS: Oxytocin 15 Units/NS 250ml 15 UNITS/250 ML IV.SOLN 2 UNITS IV (19:42)
[2025-02-06] MEDS: Lactated Ringers 1,000 ML 50 ML IV (19:43)
--- NOTE | 2025-02-06 20:52 | PCM.PN.BLA ---
Progress Note patient is sleeping in room with ear plugs in and eye mask on and birthing pillow. Her flores balloon came out about an hour ago and pitocin is started current tracing: FHT: 150 Moderate variability reactive no decelerations category I tracing [place]: 3 min Contractions cx: 4/80/-3 and head ballotable. reviewed tracing abnormalities since last note: no changes A/P: station too high to safely rupture membranes. plan to rupture when more applied. continue pitocin. patient appreciates this plan as she would like to get some sleep for now while pitocin is running.
[2025-02-07] VITALS (59 sets, daily range): BP systolic 89–190; BP diastolic 52–131; PULSE 70–157; RESP 14–21; TEMP 36.1–37.1; O2SAT 92–100
--- NOTE | 2025-02-07 04:58 | PCM.PN.BLA ---
Progress Note patient is breathing through contractions. Nurse states that head is at -2 station now. Patient consents to AROM current tracing: FHT: 150's, Moderate variability reactive no decelerations category I tracing [place]: q1-3 min Contractions Cx: 5/80/-2, membranes ruptured with clear fluid, small to moderate amount A/P: GHTN, circumvallate placenta -continue pitocin -we discussed nitrous vs epidural. pt to decide. -hold buspar in labor
[2025-02-07] MEDS: Lactated Ringers 1,000 ML 999 ML IV ×2 (05:31→07:11)
[2025-02-07] MEDS: fentaNYL-bupivacaine (epidural) 100 ML BAG EPIDURAL ×2 (06:27→10:31)
[2025-02-07] MEDS: DiphenhydrAMINE 50 MG/ML Syringe 25 MG IV (08:18)
[2025-02-07] MEDS: Lactated Ringers 1,000 ML 200 ML IV (08:49)
[2025-02-07] MEDS: fentaNYL 100 MCG/2 ML Ampul EPIDURAL (12:28)
--- NOTE | 2025-02-07 12:58 | PCM.PN.BLA ---
Progress Note deceleration to the 70s x 5-6 minutes with recovery into the 110-120s with positive scalp stimulation and acceleration. 5-6/70/-2. EFW 8 1/2 lbs based on recent US. reviewed pitocin had only been at 12 mU and was no adequate with contractions yet. patient hasn't been adequate all night, reveiwed that now tracing is reassuring again, reviewed option of proceeding with csection versus exp managment and restarting pitocin to attempt vaginal , patient agrees to restartng pitocin.
[2025-02-07] MEDS: Cefazolin 1 GM/5 ML Vial 2 GM IV (13:53)
[2025-02-07] MEDS: Lidocaine 2% (5ml sdv) 5 ML VIAL.MPF 15 ML EPIDURAL (13:55)
[2025-02-07] MEDS: morphine PF (epidural) 5 MG/10 ML Vial 3 MG EPIDURAL (14:05)
[2025-02-07] MEDS: Azithromycin 500 MG Vial (SNAP) IV (14:10)
[2025-02-07] MEDS: Oxytocin 15 Units/NS 250ml 15 UNITS/250 ML IV.SOLN 83 UNITS IV (15:05)
[2025-02-07] MEDS: Lactated Ringers 1,000 ML 100 ML IV (15:05)
[2025-02-07] MEDS: Ketorolac 30 MG/ML Syringe IV ×2 (15:44→21:14)
--- NOTE | 2025-02-07 18:06 | OP.PCM_ITS ---
Assessment & Plan (1) induced hypertension: (2) Circumvallate placenta: QUALIFIERS: Trimester: third trimester Qualified Code(s): O43.113 - Circumvallate placenta, third trimester COMMENT: Growth US Q4 weeks @ 28 weeks. 11/20:28w-69% EFW. 63% AC (3) Rh negative status during : QUALIFIERS: Trimester: third trimester Qualified Code(s): O26.893 - Other specified related conditions, third trimester; Z67.91 - Unspecified blood type, Rh negative COMMENT: O-, Rhogam @ 28wks & as needed. given 11/20/24 (4) Supervision of high-risk : QUALIFIERS: Trimester: third trimester Qualified Code(s): O09.93 - Supervision of high risk , unspecified, third trimester COMMENT: PRR, RADHA 02/06/25, boy secret name : Mandeep (has septal defect (5) : QUALIFIERS: Weeks of gestation: 40 weeks Qualified Code(s): Z3A.40 - 40 weeks gestation of COMMENT: Neg GBS Discussed genetic/carrier testing - nl anatomy. (6) delivery delivered: COMMENT: [facility] geovanna Mendoza cat II tracing (7) Category II heart rate tracing during labor and delivery: Maternal Data Information RADHA Calculator Estimated Delivery Date Method Current WG Current Estimate 02/06/25 LMP (Certain) 40w 1d Other Estimates 02/11/25 Ultrasound #1 39w 3d Operative Report (OB) Procedure Details Date of Procedure: 02/07/25 Procedure Start Time: 13:58 Pre-Operative Diagnosis: Distress and Other Other Pre-Operative diagnosis: see a/p comments Post-Operative Diagnosis: Same as Pre-operative diagnosis Type of Anesthesia: Epidural Special Medications: none Antibiotic Given: Ancef 2 grams IV x1 Drain: Caal to straight drain Estimated Blood Loss: 800 Fluids Replaced: crystalloid Findings Description of surgery: patient was induced for circumvallate and elevated bps, pit and fb. proceeded to have recurrent prolonged decels with pitocin mutliple times and was 5 cm remote from delivery, decision made to proceed with . The patient was placed in the dorsal supine position with leftward tilt. Patient was prepped and draped in the normal sterile fashion. Pfannenstiel skin incision was made with the scalpel and carried through to the underlying layer of fascia with the scalpel. Fascia was nicked in the midline and the incision extended laterally. The rectus bellies were dissected off superiorly and inferiorly with out complication both sharply and bluntly. The peritoneum was entered digitally. The incision was stretched and a low transverse uterine incision was made with the scalpel. The infant's head was delivered atraumatically followed by the anterior and posterior shoulders without complication the rest of the delivered. The cord was clamped and cut and the infant was handed off to awaiting nurse. The placenta was delivered spontaneously immediately following and was noted to be intact and have a three-vessel cord. The uterus was exteriorized cleared of all clots and debris, and the incision was closed in a single layer closure using #1 Monocryl. The ovaries and fallopian tubes were noted to be within normal limits. The uterus was returned to the maternal abdomen and gutters were cleared of all clots and debris. The peritoneum was closed with 3-0 Monocryl in a running fashion. Gloves were changed prior to fascial closure. Fascia was closed with 0 PDS in a running fashion. Subcutaneous tissue was copiously irrigated and the skin was closed with 3-0 Monocryl in a subcuticular fashion. Mepilex dressing was applied without complication. Patient was taken to recovery in stable condition. It was discussed with the patient that based on the clinical information obtained during this encounter, combined with her history, at this time I would recommend vaginal or for future deliveries if further pregnancies are desired. Surgical findings: body and nuchal cord tight Presentation: Vertex Amniotic Membrane Rupture Type: Artificial Amniotic Fluid Description: Clear Placental Delivery Description: Spontaneous Specimen collected: Yes Description of specimen(s) removed: placenta and baby Cord Vessel Description: 3 Vessels Delayed Cord Clamping: Yes Instrument Technician fishing manager: Yes Chin Strap Cutter: Karolina Ross Tasks completed by inside sales assistant: Opening & closing, Retracting and Other (assisting in delivery of the ) Additional physiotherapy assistant?: No Complications Complications: No Admit VTE Documentation VTE Present on Admission: No VTE Mechan Device Prophylaxis: SCD's Procedures Urinary/Genital [id number]: [id number] Delivery [facility]
--- NOTE | 2025-02-07 18:13 | PCM.DC ---
Discharge Instructions DC O2, CPAP, BIPAP needs Home O2 Discharge instructions: No Dressing / Incision Discharge Activity: May Not Drive (for 2 weeks or while taking narcotic pain medications.), May Shower and May Take a Tub Bath (in 7 days) May shower in (days): 0 May resume sexual activity in: 4-6 weeks Weight Bearing Status: Full weight bearing Lifting Restrictions: 20 pounds Dressing / Incision Call your doctor if your incision/area has: Continuous Slow Oozing, Sudden Increased Bleeding, Increased Pain/ Swelling, Increased Redness and Foul Smelling Discharge Call your doctor if you observe: Fever of 101 or Higher and Using more than 1 pad per hour (for 2 hours) Suture Line Care: Avoid Pulling/Pushing and Avoid Pinching/Bending Cleanse incision/area with: Soap & Water and Keep Dressing Clean & Dry Follow Up Care Please Follow Up With: Jacki Worthington MD When: Call [phone] to make an appointment for an incision check in 1-2 weeks. Test Results: Test results from this visit will be discussed in further detail at your follow-up appointment, if applicable. Discharge Plan Admission Admit Date/Time: 02/06/25 16:59 Attending Provider: Jacki Worthington Primary Care Provider: Kirti Nivees Discharge Orders/Prescriptions Prescriptions: New oxycodone-acetaminophen [Percocet] 5-325 mg tablet 1 tab PO Q4H PRN (Reason: pain) 7 Days Qty: 20 0RF naproxen 500 mg tablet 500 mg PO BID PRN PRN (Reason: Pain) Qty: 30 1RF No Action Zyrtec 10 mg capsule 10 mg PO DAILY citalopram 40 mg tablet 40 mg PO DAILY buspirone 5 mg tablet 5 mg PO TID DHA 200 mg capsule 200 mg PO DAILY ferrous sulfate 325 mg (65 mg iron) tablet 325 mg PO QDAY (DME) blood-glucose meter Misc See Rx Instructions .Route Qty: 1 0RF Rx Instructions: As directed (DME) Blood Glucose Test Strip See Rx Instructions .Route Qty: 50 4RF Rx Instructions: As directed (DME) lancets [CareTouch Safety Lancets] 26 gauge misc See Rx Instructions .Route Qty: 100 3RF Rx Instructions: As directed cholecalciferol (vitamin D3) [Vitamin D3] 25 mcg (1,000 unit) Capsule 50 mcg PO DAILY magnesium 250 mg Tablet 250 mg PO DAILY Referrals / Follow Up: Kirti Nieves, [facility] [Primary Care Provider, Medical] Disposition Disposition (needs filled in before D/C Order can be placed): Home, Self Care
[2025-02-08] VITALS (7 sets, daily range): BP systolic 109–137; BP diastolic 71–91; PULSE 80–96; RESP 16–18; TEMP 36.3–36.9; O2SAT 97–99
[2025-02-08] MEDS: Ketorolac 30 MG/ML Syringe IV ×2 (03:24→09:13)
[2025-02-08] MEDS: 0.9% Saline Lock 10 ML Syringe IV ×2 (03:24→09:13)
[2025-02-08 06:09] LABS: Hematocrit 27.3 % (37-47); Hemoglobin 9.5 g/dL (12.0-15.0); Mean Corp Hgb Conc 34.8 g/dL (32-36); Mean Corpuscular Volume 87.8 fL (81-99); Mean Platelet Vol. 12.2 fl (6.2-12.0); Platelet Count 125 K/mm3 (150-450); RBC Distribution Width CV 14.3 % (11.6-14.6); RBC Distribution Width SD 46.1 fl (35.1-43.9); Red Blood Count 3.11 M/mm3 (4.2-5.4); White Blood Count 19.8 K/mm3 (4.4-11.0)
[2025-02-08] MEDS: Senna/Docusate Sodium 1 Tablet PO (09:13)
--- NOTE | 2025-02-08 09:48 | PCM.PN.CNM ---
Subjective Subjective G1 PO s/p section on 02/07/25, day #1. Reports resting comfortably in bed, spouse/family supportive at bedside. Rates pain as soreness/manageable. Objective Data Objective Data Vital Signs: Vital Signs Temp Pulse Resp BP Pulse Ox O2 Del Method 97.3 F L 84 18 126/82 H 99 Room Air 02/08/25 08:54 02/08/25 08:54 02/08/25 08:54 02/08/25 08:54 02/08/25 08:54 02/08/25 08:54 Oxygen Delivery Method Room Air Weight: 187 lb 2 oz Body Mass Index (BMI) 32.1 Intake & Output: Intake and Output for Last 24 Hours 02/06/25 02/07/25 02/08/25 23:59 23:59 23:59 Intake Total 11.67 / 11.67 4487.18 / 4487.18 Output Total 3200 / 3200 1700 / 1700 Balance 11.67 / 11.67 1287.18 / 1287.18 -1700 / -1700 Lab / Micro Data Attestation: I reviewed the patient's lab results. 02/08/25 06:00 02/06/25 17:00 Labs: Laboratory Results - last 24 hr 02/08/25 06:00: WBC 19.8 H, RBC 3.11 L, Hgb 9.5 L, Hct 27.3 L, MCV 87.8, MCH 30.5, MCHC 34.8, RDW Std Deviation 46.1 H, RDW Coeff of Katya 14.3, Plt Count 125 L, MPV 12.2 H ROS Constitutional Constitutional: Reports systems reviewed and no addt'l complaints, except as documented Respiratory/Chest Respiratory/Chest: Reports systems reviewed and no addt'l complaints, except as documented Gastrointestinal Gastrointestinal: Reports systems reviewed and no addt'l complaints, except as documented Genitourinary Genitourinary: Reports systems reviewed and no addt'l complaints, except as documented Musculoskeletal Musculoskeletal: Reports systems reviewed and no addt'l complaints, except as documented Physical Exam Const alert, oriented x3 and no apparent distress General Appearance: cooperative, comfortable, well kempt and well developed Resp Resp Narrative: Respirations eased & unlabored. No s/s of distress noted. GI soft to palpation and non-tender GI Narrative: softly distended, pt reports passing small amounts of flatus. LTCS wound dressing is dry and intact, no drainage noted. Uterus Palpation: uterus fundus firm (Midline, u/1, small amount of dark red lochia, no odor. ) Extremity normal to inspection Extremity Narrative: 1+ edema noted on lower extremities. Skin no rashes or lesions noted Neuro oriented x3 Psych mental status grossly normal, thought process normal, cooperative and affect normal Charges/Coding Multi Select Codes Urinary/Genital Urinary/Genital CPT Codes: 33913 CARE AFTER DELIVERY Assessment & Plan (1) delivery delivered: COMMENT: LTCS geovanna Mendoza cat II tracing (2) induced hypertension: COMMENT: Denies all s/s of Pre-Eclampsia at present, BP stable. PLAN: Monitor BP, consider d/c tomorrow. (3) Supervision of high-risk : QUALIFIERS: Trimester: third trimester Qualified Code(s): O09.93 - Supervision of high risk , unspecified, third trimester COMMENT: PRR, RADHA 02/06/25, boy secret name : Mandeep (has septal defect PLAN: D/C Home tomorrow, f/u in office in 6 weeks. PLAN: Plan s/p LTCS PPD # 1 1. routine post care 2. breast feeding- support given 3. rh negative 4. rubella immune 5. Discharge teaching/planning 6. d/c home tomorrow.
[2025-02-08 12:59] LABS: Hematocrit 26.4 % (37-47); Hemoglobin 9.1 g/dL (12.0-15.0); Immature Granulocytes Count 0.140 X10^3/uL (0.0-0.0); Mean Corp Hgb Conc 34.5 g/dL (32-36); Mean Corpuscular Volume 87.7 fL (81-99); Mean Platelet Vol. 12.2 fl (6.2-12.0); NRBC Flagged by Analyzer 0 % (0-5); Platelet Count 122 K/mm3 (150-450); RBC Distribution Width CV 14.5 % (11.6-14.6); RBC Distribution Width SD 46.4 fl (35.1-43.9); Red Blood Count 3.01 M/mm3 (4.2-5.4); White Blood Count 17.7 K/mm3 (4.4-11.0)
[2025-02-09 01:54] VITALS: BP 110/82; PULSE 78; RESP 16; TEMP 36.3; O2SAT 95
[2025-02-09 05:58] VITALS: BP 115/81
[2025-02-09 06:18] LABS: Hematocrit 24.7 % (37-47); Hemoglobin 8.3 g/dL (12.0-15.0); Immature Granulocytes Count 0.110 X10^3/uL (0.0-0.0); Mean Corp Hgb Conc 33.6 g/dL (32-36); Mean Corpuscular Volume 88.8 fL (81-99); Mean Platelet Vol. 12.6 fl (6.2-12.0); NRBC Flagged by Analyzer 0 % (0-5); Platelet Count 107 K/mm3 (150-450); RBC Distribution Width CV 14.7 % (11.6-14.6); RBC Distribution Width SD 47.6 fl (35.1-43.9); Red Blood Count 2.78 M/mm3 (4.2-5.4); White Blood Count 12.8 K/mm3 (4.4-11.0)
[2025-02-09 08:11] VITALS: BP 130/84; PULSE 84; RESP 16; TEMP 36.5; O2SAT 99
--- NOTE | 2025-02-09 10:03 | PCM.PN.CNM ---
Subjective Subjective s/p Primary LTCS on 02/07/25, desires d/c to home today. Reports feeling well. Objective Data Objective Data Vital Signs: Vital Signs Temp Pulse Resp BP Pulse Ox O2 Del Method 97.7 F L 84 16 130/84 H 99 Room Air 02/09/25 08:11 02/09/25 08:11 02/09/25 08:11 02/09/25 08:11 02/09/25 08:11 02/09/25 08:11 Oxygen Delivery Method Room Air Weight: 187 lb 2 oz Body Mass Index (BMI) 32.1 Intake & Output: Intake and Output for Last 24 Hours 02/07/25 02/08/25 02/09/25 23:59 23:59 23:59 Intake Total 4487.18 / 4487.18 Output Total 3200 / 3200 1700 / 1700 Balance 1287.18 / 1287.18 -1700 / -1700 Lab / Micro Data Attestation: I reviewed the patient's lab results. 02/09/25 06:03 02/06/25 17:00 Labs: Laboratory Results - last 24 hr 02/08/25 12:45: WBC 17.7 H, RBC 3.01 L, Hgb 9.1 L, Hct 26.4 L, MCV 87.7, MCH 30.2, MCHC 34.5, RDW Std Deviation 46.4 H, RDW Coeff of Katya 14.5, Plt Count 122 L, MPV 12.2 H, Immature Gran % (Auto) 0.800, Neut % (Auto) 80.4 H, Lymph % (Auto) 11.4 L, [place] % (Auto) 6.9, Eos % (Auto) 0.3, Baso % (Auto) 0.2, Absolute Neuts (auto) 14.2 H, Absolute Lymphs (auto) 2.02, Nucleated RBC % 0 02/09/25 06:03: WBC 12.8 H, RBC 2.78 L, Hgb 8.3 L, Hct 24.7 L, MCV 88.8, MCH 29.9, MCHC 33.6, RDW Std Deviation 47.6 H, RDW Coeff of Katya 14.7 H, Plt Count 107 L, MPV 12.6 H, Immature Gran % (Auto) 0.900, Neut % (Auto) 74.0 H, Lymph % (Auto) 16.6 L, [place] % (Auto) 6.2, Eos % (Auto) 2.0, Baso % (Auto) 0.3, Absolute Neuts (auto) 9.5 H, Absolute Lymphs (auto) 2.12, Nucleated RBC % 0 ROS Constitutional Constitutional: Reports systems reviewed and no addt'l complaints, except as documented Respiratory/Chest Respiratory/Chest: Reports systems reviewed and no addt'l complaints, except as documented Gastrointestinal Gastrointestinal: Reports systems reviewed and no addt'l complaints, except as documented Genitourinary Genitourinary: Reports systems reviewed and no addt'l complaints, except as documented Musculoskeletal Musculoskeletal: Reports systems reviewed and no addt'l complaints, except as documented Integumentary Integumentary: Reports systems reviewed and no addt'l complaints, except as documented Psychiatric Psychiatric: Reports systems reviewed and no addt'l complaints, except as documented Physical Exam Const alert, oriented x3 and no apparent distress General Appearance: cooperative, comfortable, well kempt and well developed Resp Resp Narrative: Respirations eased & unlabored. No s/s of distress noted. GI GI Narrative: Bowel Sounds present x's 4, Abdomen softly distended. Reports passing flatus. LTCS dressing dry & intact. No drainage noted. Uterus Palpation: uterus fundus firm (Midline, firm, u/1 to u/2, small dark red lochia, no odor. ) Neuro oriented x3 Psych mental status grossly normal, thought process normal, cooperative and affect normal Charges/Coding Multi Select Codes Urinary/Genital Urinary/Genital CPT Codes: 29392 CARE AFTER DELIVERY Assessment & Plan (1) delivery delivered: COMMENT: [facility] boy Reji cat II tracing PLAN: F/U in office at 1 & 6 wks. (2) induced hypertension: COMMENT: Denies all s/s of Pre-Eclampsia at present, BP stable. PLAN: Adjust Labetalol to 200mg BID, monitor BP at home daily, call if BP >140/90 or s/s of Pre-Eclampsia occur. 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 (5) Rh negative status during : QUALIFIERS: Trimester: third trimester Qualified Code(s): O26.893 - Other specified related conditions, third trimester; Z67.91 - Unspecified blood type, Rh negative COMMENT: O-, Rhogam @ 28wks & as needed. given 11/20/24 PLAN: Baby A negative/Rhogam not needed (6) Anemia due to blood loss: COMMENT: 12.4/35.3 on admission. 8.3/24.7 on PP day #2. Pt reports feeling better, but still occasionally dizzy, has h/o struggling w/anemia & desires IV Iron infusion prior to d/c. PLAN: 1. IV Venofer 300mg now x's 1 2. Continue PO Iron daily w/vit C for 6 wks . PLAN: Plan s/p LTCS PPD # 2 1. routine post care 2. breast feeding- support given 3. rh negative (Baby A negative) 4. rubella immune 5. Decrease Labetalol to 200mg BID dosing 6. D/C home today. F/U in office in 1 wk. Monitor BP's daily at home, call if >140/90 or s/s of Pre-E occur
--- NOTE | 2025-02-09 10:20 | DS.PCM_ITS ---
Providers Date of Admission: 02/06/25 Primary Care Physician: Kirti Nieves, LEAD FRONT DESK AGENT-C Reason For Visit: PRIMARY Diagnosis Discharge Diagnosis (1) delivery delivered: Status: Acute Code(s): O82 - Encounter for delivery without indication Plan: F/U in office at 1 & 6 wks. (2) induced hypertension: Status: Acute Code(s): O13.9 - Gestational [-induced] hypertension without significant proteinuria, unspecified trimester Plan: Adjust Labetalol to 200mg BID, monitor BP at home daily, call if BP >140/90 or s/s of Pre-Eclampsia occur. 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 (5) Rh negative status during : Status: Acute Code(s): O26.899 - Other specified related conditions, unspecified trimester; Z67.91 - Unspecified blood type, Rh negative Qualifiers: Trimester: third trimester Qualified Code(s): O26.893 - Other specified related conditions, third trimester; Z67.91 - Unspecified blood type, Rh negative Plan: Baby A negative/Rhogam not needed (6) Anemia due to blood loss: Status: Acute Code(s): D50.0 - Iron deficiency anemia secondary to blood loss (chronic) Plan: 1. IV Venofer 300mg now x's 1 2. Continue PO Iron daily w/vit C for 6 wks . Plan s/p LTCS PPD # 2 1. routine post care 2. breast feeding- support given 3. rh negative (Baby A negative) 4. rubella immune 5. Decrease Labetalol to 200mg BID dosing 6. D/C home today. F/U in office in 1 wk. Monitor BP's daily at home, call if >140/90 or s/s of Pre-E occur Medications at Discharge Home Medications cetirizine 10 mg capsule (Zyrtec) 10 mg PO DAILY allergies 10/07/19 cholecalciferol (vitamin D3) 25 mcg (1,000 unit) capsule (Vitamin D3) 50 mcg PO DAILY supplement 05/06/21 magnesium 250 mg tablet 250 mg PO DAILY supplement 06/18/21 citalopram 40 mg tablet 40 mg PO DAILY depression 10/14/21 buspirone 5 mg tablet 5 mg PO TID anxiety 06/21/24 docosahexaenoic acid 200 mg capsule ( DHA) 200 mg PO DAILY 06/21/24 ferrous sulfate 325 mg (65 mg iron) tablet 325 mg PO QDAY anemia 12/04/24 blood sugar diagnostic (Blood Glucose Test strips) #50 ea 01/31/25 blood-glucose meter #1 ea 01/31/25 lancets 26 gauge ([employer] Safety Lancets) #100 ea 01/31/25 naproxen 500 mg tablet 500 mg PO BID PRN PRN Pain #30 tabs 02/07/25 oxycodone-acetaminophen 5 mg-325 mg tablet (Percocet) 1 tab PO Q4H PRN pain 7 days #20 tabs 02/07/25 Hospital Course Operations - (Primary Low Transverse Section) Physical Exam Const alert, oriented x3 and no apparent distress General Appearance: cooperative, comfortable and well kempt Resp normal respiratory effort Resp Narrative: Respirations eased & unlabored. No s/s of distress noted. GI GI Narrative: Abdomen softly distended, bowel sounds present x's 4, reports passing flatus. LTCS wound dressing is dry & intact. No drainage noted. Uterus Palpation: uterus fundus firm (ML, firm, u/1 to u/2, small dark red lochia, no odor.) Psych mental status grossly normal, thought process normal, cooperative and affect normal Weight / BMI Weight Weight: 187 lb 2 oz Body Mass Index (BMI) 32.1 ABG / Lab / Microbiology Data 02/09/25 06:03 02/06/25 17:00 Laboratory: Laboratory Results - last 24 hr 02/08/25 12:45: WBC 17.7 H, RBC 3.01 L, Hgb 9.1 L, Hct 26.4 L, MCV 87.7, MCH 30.2, MCHC 34.5, RDW Std Deviation 46.4 H, RDW Coeff of Katya 14.5, Plt Count 122 L, MPV 12.2 H, Immature Gran % (Auto) 0.800, Neut % (Auto) 80.4 H, Lymph % (Auto) 11.4 L, [place] % (Auto) 6.9, Eos % (Auto) 0.3, Baso % (Auto) 0.2, Absolute Neuts (auto) 14.2 H, Absolute Lymphs (auto) 2.02, Nucleated RBC % 0 02/09/25 06:03: WBC 12.8 H, RBC 2.78 L, Hgb 8.3 L, Hct 24.7 L, MCV 88.8, MCH 29.9, MCHC 33.6, RDW Std Deviation 47.6 H, RDW Coeff of Katya 14.7 H, Plt Count 107 L, MPV 12.6 H, Immature Gran % (Auto) 0.900, Neut % (Auto) 74.0 H, Lymph % (Auto) 16.6 L, [place] % (Auto) 6.2, Eos % (Auto) 2.0, Baso % (Auto) 0.3, Absolute Neuts (auto) 9.5 H, Absolute Lymphs (auto) 2.12, Nucleated RBC % 0 D/C Instructions May shower in (days): 0 May resume sexual activity in: 4-6 weeks Weight Bearing Status: Full weight bearing Call your doctor if your incision/area has: Continuous Slow Oozing, Sudden Increased Bleeding, Increased Pain/ Swelling, Increased Redness and Foul Smelling Discharge Call your doctor if you observe: Fever of 101 or Higher and Using more than 1 pad per hour (for 2 hours) Suture Line Care: Avoid Pulling/Pushing and Avoid Pinching/Bending Cleanse incision/area with: Soap & Water and Keep Dressing Clean & Dry DC O2, CPAP, BIPAP Needs Home O2 Discharge instructions: No Please Follow Up With: Jacki Worthington MD When: Call [phone] to make an appointment for an incision check in 1-2 weeks. Meaningful Use Info Meaningful Use Meaningful Use Diagnoses (Choose all that apply): None applicable Discharge Plan Admission Admit Date/Time: 02/06/25 16:59 Attending Provider: Jacki Worthington Primary Care Provider: Kirti Nieves Discharge Orders/Prescriptions Prescriptions: New oxycodone-acetaminophen [Percocet] 5-325 mg tablet 1 tab PO Q4H PRN (Reason: pain) 7 Days Qty: 20 0RF naproxen 500 mg tablet 500 mg PO BID PRN PRN (Reason: Pain) Qty: 30 1RF Continued Zyrtec 10 mg capsule 10 mg PO DAILY citalopram 40 mg tablet 40 mg PO DAILY buspirone 5 mg tablet 5 mg PO TID DHA 200 mg capsule 200 mg PO DAILY ferrous sulfate 325 mg (65 mg iron) tablet 325 mg PO QDAY cholecalciferol (vitamin D3) [Vitamin D3] 25 mcg (1,000 unit) Capsule 50 mcg PO DAILY magnesium 250 mg Tablet 250 mg PO DAILY Discontinued (DME) blood-glucose meter Misc See Rx Instructions .Route Qty: 1 0RF Rx Instructions: As directed (DME) Blood Glucose Test Strip See Rx Instructions .Route Qty: 50 4RF Rx Instructions: As directed (DME) lancets [[employer] Safety Lancets] 26 gauge misc See Rx Instructions .Route Qty: 100 3RF Rx Instructions: As directed Referrals / Follow Up: Kirti Nieves, LEAD FRONT DESK AGENT-C [Primary Care Provider, Medical] Disposition Disposition (needs filled in before D/C Order can be placed): Home, Self Care Charges/Coding Multi Select Codes Urinary/Genital Urinary/Genital CPT Codes: 47692 Vaginal Delivery+ PP Care([place]OR[place]) and 73102 CARE AFTER DELIVERY
--- NOTE | 2025-02-09 10:23 | CASEMGMT ---
Social Work Assessment Labor and Delivery Unit Patient Address: [address] [place] [address] Phone number: [phone] Date of Referral: 02/07/25 Time of Referral: 16:16 Referred By: Jacki Worthington Date of Intervention: 02/09/25 Time of Intervention: 10:23 Reason for Referral: Mental Health/anxiety and depression History obtained from: Mother of baby (MOB), father of baby (FOB/Mandeep, age 36) and review of medical records. Household composition: MOB, FOB and their son, Reji, born on 02/07/25. Patient's parent/guardian status: MOB and FOB have been together for 3 years and for almost 2 of those years.? MOB denied any previous or current issues of domestic violence and described a positive relationship with the FOB. MOB and FOB both denied having any other children. Medical History: : 1, Para, now 1. DAIANA received PNC through [facility] beginning at 10 weeks and 1 day. Visits were observed to be routine. Apgars: 8 and 9. Weight: 8lbs, 0oz. Weed Science Research Technician: Nestor Ye through [facility] in [place]. Educational Status: MOB and FOB denied any issues with reading, writing or learning comprehension. MOB earned her bachelor?s degree in nursing and the FOB earned his bachelor?s degree in Construction Safety Management. Financial Status: MOB and FOB reported that their income is sufficient to meet the needs of their family at this time. DAIANA is currently employed part-time at [employer] and the FOB is employed full-time as a product safety professional. MOB is taking 12 weeks of maternity leave and the FOB is taking 4 weeks of paternity leave which he plans to spread out. Infant Supplies: MOB and FOB reported they have the supplies they need for baby at this time including but not limited to: Car seat, bassinet, crib, pack-n-play, diapers, bottles, breast pump and clothing. Childcare/Caregiver(s): DAIANA reported that she has a neighbor who cares for children in her home that will be the caregiver for baby once the MOB and FOB return to work. Transportation: Both MOB and FOB are licensed drivers and have a reliable vehicle to get baby to and from all medical appointments. MOB and FOB denied any issues/barriers to transportation at this time. Programs/Agencies Involved: DAIANA is currently connected to [facility] in [place] and see?s Page once a month. MOB and FOB denied any other agency involvement. Children Services/Legal Issues: MOB and FOB denied any previous or current Children Services and/or legal involvement. Behavioral Health Issues: None reported/denied. Mental Health History: DAIANA has a history of anxiety and depression and is currently on medication which MOB described as being effective. MOB described her symptoms as being managed at this time. MOB reported she has a PPD plan in place so that Page from [facility] is going to call her in 2 weeks, again in 4 weeks and MOB will see Page in person in 6 weeks to monitor/assess any potential needs. ?Insulation Cupola Charger administered the [place] Depression Scale (EPDS). MOB?s score was an 8. Insulation Cupola Charger reviewed the score and what the score means which the MOB verbalized she understood. Substance Use History:?? MOB and FOB denied any history or current drug and/or alcohol abuse.? Family History: MOB?s side of the family: DAIANA is adopted and does not know her family?s medical history however reported that her adopted brother of an overdose. FOB?s side of the family: sister and father both have anxiety. ?? Drug Screens: None obtained for the MOB or baby during this admission. Family/Social Stressors:?? Denied. Support Systems:? MOB identified her biggest support as the FOB, family as well has the FOB?s parents as they live local and the MOB?s parents though they reside out of state. MOB also reported that she and the father have a strong sabianism support as well as friends from work on both sides. Depression/Shaken Baby/Safe Sleeping: Insulation Cupola Charger provided verbal and written education on PPD, increased risk factors for PPD, Safe Sleeping and Shaken Baby.? MOB and FOB both verbalized an understanding.??? ASSESSMENT: MOB and FOB provided consent to social work visit. Upon arrival, the DELFINO and his mother were taking a load to the car and also grabbing the car seat for baby. During this time, high school social science teacher had a chance to talk with the MOB alone and complete the EPDS. ?MOB reported feeling safe in her home and denied any previous or current domestic violence, unmanaged mental health issues either with herself or with the FOB, and also denied any concerns with any drug or alcohol abuse either with herself or with the FOB as well as any unmanaged mental health concerns. When the FOB returned, he returned alone and high school social science teacher observed positive interaction between the MOB and FOB. Insulation Cupola Charger also observed positive interaction between the MOB and baby as the MOB was holding baby in the hospital bed while baby slept. MOB was observed to be very gentle and attentive to baby. Safe Plan of Care for related to substance use: N/A PLAN: For MOB and baby to be discharged when medically ready. No other services requested or indicated. Elke Salas, SALES ATTENDANT BUILDING MATERIALS, STAFFING DIRECTOR
[2025-02-09] MEDS: Senna/Docusate Sodium 1 Tablet PO (10:28)
[2025-02-09] MEDS: Iron Sucrose Complex 300 MG in 0.9% Normal Saline (250mL Bag) 250 ML 177 MG IV (10:29)
[2025-02-09] MEDS: 0.9% Saline Lock 10 ML Syringe IV (10:29)
[2025-02-09 12:25] VITALS: BP 137/94; PULSE 79; RESP 16; TEMP 36.4; O2SAT 97
== END 2025-02-09 13:39 | disposition home or self-care (01) | DRG 788 ==
PROVIDERS: Midwife; Admitting Provider Obstetrics & Gynecology; PCP Nurse Practitioner Family; Referring Provider Obstetrics & Gynecology; Visit Provider Obstetrics & Gynecology
DX: O13.4 Gestational [pregnancy-induced] hypertension without significant proteinuria, complicating childbirth (principal); D50.0 Iron deficiency anemia secondary to blood loss (chronic); E06.3 Autoimmune thyroiditis; F32.A Depression, unspecified; F41.9 Anxiety disorder, unspecified; E28.2 Polycystic ovarian syndrome; K58.1 Irritable bowel syndrome with constipation; Z37.0 Single live birth; O99.344 Other mental disorders complicating childbirth; O43.113 Circumvallate placenta, third trimester; O26.893 Other specified pregnancy related conditions, third trimester; Z67.91 Unspecified blood type, Rh negative; O99.284 Endocrine, nutritional and metabolic diseases complicating childbirth; O99.02 Anemia complicating childbirth; O99.62 Diseases of the digestive system complicating childbirth; O69.1XX0 Labor and delivery complicated by cord around neck, with compression, not applicable or unspecified; O99.814 Abnormal glucose complicating childbirth; O76 Abnormality in fetal heart rate and rhythm complicating labor and delivery; Z3A.40 40 weeks gestation of pregnancy; Z79.899 Other long term (current) drug therapy
CPT/HCPCS: 36415; 59025; 59050; 82565; 82570; 84156; 84450; 84460; 84550; 85025; 85027; 86780; 86850; 86900; 86901; 99221; J1756; A4216; G0378; J2405

== ENCOUNTER 2025-02-12 10:16 | Outpatient (CLI) | payer OTHER, SELFPAY ==
[2025-02-12] VITALS (18 sets, daily range): BP systolic 125–153; BP diastolic 84–100; PULSE 66–72; RESP 15–16; TEMP 36.7; O2SAT 97–100; BMI 27.8
[2025-02-12 12:19] LABS: Hematocrit 32.4 % (37-47); Hemoglobin 10.8 g/dL (12.0-15.0); Mean Corp Hgb Conc 33.3 g/dL (32-36); Mean Corpuscular Volume 89.8 fL (81-99); Mean Platelet Vol. 11.7 fl (6.2-12.0); POSITIVE COUNT YES; POSITIVE MORPHOLOGY YES; Platelet Count 213 K/mm3 (150-450); RBC Distribution Width CV 14.5 % (11.6-14.6); RBC Distribution Width SD 46.7 fl (35.1-43.9); Red Blood Count 3.61 M/mm3 (4.2-5.4); White Blood Count 9.9 K/mm3 (4.4-11.0)
[2025-02-12 12:31] LABS: Differential Indicated MANUAL DIFF
[2025-02-12 13:06] LABS: AST(SGOT) 51 U/L (<=31); Alanine Aminotransfer ALT/SGPT 61 U/L (<=34); Albumin, Serum 3.6 g/dL (3.5-5.0); Alkaline Phosphatase 97 U/L (35-104); Anion Gap 12 (5-15); BUN 12 mg/dL (4-19); BUN/Creat Ratio 17.7 RATIO (10-20); Calcium,Total 9.7 mg/dL (7.6-11.0); Carbon Dioxide 21.9 mmol/L (21.0-32.0); Chloride 104 mmol/L (98-108); Globulin 2.9 g/dL (2.2-4.2); Glucose 81 mg/dL (70-99); Potassium 4.3 mmol/L (3.3-5.1)
[2025-02-12 14:49] LABS: Neutrophil-Segmented 69 % (47-70); Total Cells Counted 100 (MANUAL DIFF)
[2025-02-12 14:50] LABS: Polychromasia 1+
[2025-02-12] MEDS: 0.9% Saline Lock 10 ML Syringe IV (17:45)
[2025-02-12 18:28] LABS: AST(SGOT) 51 U/L (<=31); Alanine Aminotransfer ALT/SGPT 59 U/L (<=34); Estimated Creatinine Clearance 92.91 ml/min (50-250); Uric Acid 5.8 mg/dL (2.6-6.0)
[2025-02-12 18:35] LABS: Hematocrit 33.1 % (37-47); Hemoglobin 10.9 g/dL (12.0-15.0); Mean Corp Hgb Conc 32.9 g/dL (32-36); Mean Corpuscular Volume 89.9 fL (81-99); Mean Platelet Vol. 11.6 fl (6.2-12.0); Platelet Count 239 K/mm3 (150-450); RBC Distribution Width CV 14.4 % (11.6-14.6); RBC Distribution Width SD 46.5 fl (35.1-43.9); Red Blood Count 3.68 M/mm3 (4.2-5.4); White Blood Count 10.5 K/mm3 (4.4-11.0)
[2025-02-12] MEDS: NIFEdipine 30 MG Tablet PO (18:43)
--- NOTE | 2025-02-24 21:47 | OB.TRI.PN ---
Progress Notes Date of Service: 03/15/25 Progress Note: seen for preeclampsia, labs drawn and bps monitored, dosing adjusted patient stbale for dc to home Laboratory Studies: Laboratory Tests 02/12/25 02/12/25 Range/Units 17:45 10:16 WBC 10.5 9.9 (4.4-11.0) K/mm3 RBC 3.68 L 3.61 L (4.2-5.4) M/mm3 Hgb 10.9 L 10.8 L (12.0-15.0) g/dL Hct 33.1 L 32.4 L (37-47) % MCV 89.9 89.8 (81-99) fL MCH 29.6 29.9 (27.0-32.0) pg MCHC 32.9 33.3 (32-36) g/dL RDW Std Deviation 46.5 H 46.7 H (35.1-43.9) fl RDW Coeff of Katya 14.4 14.5 (11.6-14.6) % Plt Count 239 213 (150-450) K/mm3 MPV 11.6 11.7 (6.2-12.0) fl Neut % (Auto) Not Reportable Absolute Neuts (auto) 6.8 (2.0-7.7) X10^3/uL Absolute Lymphs (auto) 1.68 (0.83-4.51) X10^3/uL Total Counted 100 (MANUAL DIFF) Neutrophils % (Manual) 69 (47-70) % Lymphocytes % (Manual) 17 L (19-41) % Monocytes % (Manual) 10 (0-10) % Eosinophils % (Manual) 2 (0-5) % Metamyelocytes % 2 H (0-1) % Diff Path Review Reviewed Platelet Estimate ADEQUATE (ADEQ) Polychromasia 1+ Sodium 138 (133-145) mmol/L Potassium 4.3 (3.3-5.1) mmol/L Chloride 104 (98-108) mmol/L Carbon Dioxide 21.9 (21.0-32.0) mmol/L Anion Gap 12 (5-15) BUN 12 (4-19) mg/dL Creatinine 0.91 0.66 L (0.70-1.20) mg/dL Estim Creat Clear Calc 92.91 (50-250) ml/min Est GFR (MDRD) Non-Af 88 122 (>60) BUN/Creatinine Ratio 17.7 (10-20) RATIO Glucose 81 (70-99) mg/dL Uric Acid 5.8 (2.6-6.0) mg/dL Calcium 9.7 (7.6-11.0) mg/dL Total Bilirubin 0.21 (0.00-1.30) mg/dL AST 51 H 51 H (<=31) U/L ALT 59 H 61 H (<=34) U/L Alkaline Phosphatase 97 (35-104) U/L Total Protein 6.5 (5.9-8.4) g/dL Albumin 3.6 (3.5-5.0) g/dL Globulin 2.9 (2.2-4.2) g/dL Albumin/Globulin Ratio 1.3 (0.9-2.4) RATIO
== END 2025-02-12 20:30 | disposition home or self-care (01) ==
LOC: BWCLAB 10:23 → WPOUT 17:17 → WP 17:18
PROVIDERS: PCP Nurse Practitioner Family; Referring Provider Obstetrics & Gynecology; Visit Provider Obstetrics & Gynecology
DX: O14.95 Unspecified pre-eclampsia, complicating the puerperium (principal)
CPT/HCPCS: 36415; 80053; 82565; 84450; 84460; 84550; 85025; 85027; 99221; A4216; G0378

== ENCOUNTER → 2025-02-13 | Outpatient (CLI) | payer OTHER, SELFPAY ==
[2025-02-13 16:39] LABS: Hematocrit 35.1 % (37-47); Hemoglobin 11.6 g/dL (12.0-15.0); Immature Granulocytes Count 0.510 X10^3/uL (0.0-0.0); Mean Corp Hgb Conc 33.0 g/dL (32-36); Mean Corpuscular Volume 90.5 fL (81-99); Mean Platelet Vol. 11.3 fl (6.2-12.0); NRBC Flagged by Analyzer 0 % (0-5); Platelet Count 294 K/mm3 (150-450); RBC Distribution Width CV 14.6 % (11.6-14.6); RBC Distribution Width SD 47.0 fl (35.1-43.9); Red Blood Count 3.88 M/mm3 (4.2-5.4); White Blood Count 10.9 K/mm3 (4.4-11.0)
[2025-02-13 17:29] LABS: AST(SGOT) 37 U/L (<=31); Alanine Aminotransfer ALT/SGPT 52 U/L (<=34); Albumin, Serum 3.8 g/dL (3.5-5.0); Alkaline Phosphatase 105 U/L (35-104); Anion Gap 12 (5-15); BUN 17 mg/dL (4-19); BUN/Creat Ratio 21.9 RATIO (10-20); Calcium,Total 9.5 mg/dL (7.6-11.0); Carbon Dioxide 22.5 mmol/L (21.0-32.0); Chloride 102 mmol/L (98-108); Globulin 3.0 g/dL (2.2-4.2); Glucose 81 mg/dL (70-99); Potassium 4.2 mmol/L (3.3-5.1)
== END | disposition home or self-care (01) ==
PROVIDERS: Obstetrics & Gynecology; PCP Nurse Practitioner Family; Visit Provider Obstetrics & Gynecology
DX: O16.5 Unspecified maternal hypertension, complicating the puerperium (principal); Z3A.00 Weeks of gestation of pregnancy not specified
CPT/HCPCS: 36415; 80053; 85025

== ENCOUNTER → 2025-02-14 | Outpatient (CLI) | payer OTHER, SELFPAY ==
[2025-02-14 12:32] LABS: Hematocrit 37.2 % (37-47); Hemoglobin 12.2 g/dL (12.0-15.0); Immature Granulocytes Count 0.360 X10^3/uL (0.0-0.0); Mean Corp Hgb Conc 32.8 g/dL (32-36); Mean Corpuscular Volume 92.1 fL (81-99); Mean Platelet Vol. 11.1 fl (6.2-12.0); NRBC Flagged by Analyzer 0 % (0-5); Platelet Count 288 K/mm3 (150-450); RBC Distribution Width CV 14.6 % (11.6-14.6); RBC Distribution Width SD 48.9 fl (35.1-43.9); Red Blood Count 4.04 M/mm3 (4.2-5.4); White Blood Count 9.8 K/mm3 (4.4-11.0)
[2025-02-14 13:02] LABS: AST(SGOT) 31 U/L (<=31); Alanine Aminotransfer ALT/SGPT 43 U/L (<=34); Albumin, Serum 3.8 g/dL (3.5-5.0); Alkaline Phosphatase 101 U/L (35-104); Anion Gap 10 (5-15); BUN 12 mg/dL (4-19); BUN/Creat Ratio 17.7 RATIO (10-20); Calcium,Total 9.3 mg/dL (7.6-11.0); Carbon Dioxide 23.5 mmol/L (21.0-32.0); Chloride 105 mmol/L (98-108); Globulin 2.9 g/dL (2.2-4.2); Glucose 85 mg/dL (70-99); Potassium 4.3 mmol/L (3.3-5.1)
== END | disposition home or self-care (01) ==
LOC: BWCLAB 11:17
PROVIDERS: PCP Nurse Practitioner Family; Visit Provider Obstetrics & Gynecology
DX: O16.5 Unspecified maternal hypertension, complicating the puerperium (principal); Z3A.00 Weeks of gestation of pregnancy not specified
CPT/HCPCS: 36415; 80053; 85025

== ENCOUNTER 2025-03-14 12:39 | Outpatient (CLI) | payer OTHER, SELFPAY | END 2025-03-14 13:10 | disposition home or self-care (01) | LOC: WPOUT 12:42 → WP 12:43 | PROVIDERS: PCP Nurse Practitioner Family; Referring Provider Obstetrics & Gynecology; Visit Provider Obstetrics & Gynecology | DX: Z39.1 Encounter for care and examination of lactating mother (principal) | CPT/HCPCS: 96158 ==